=== PATIENT | male | born 1950 | race Caucasian/White ===

== ENCOUNTER 2022-04-19 23:34 | Emergency (ER) | payer MEDICARE, OTHER, SELFPAY ==
[2022-04-19 23:37] VITALS: BP 129/127; PULSE 68; RESP 15; TEMP 37.2; O2SAT 95; BMI 31.4
--- NOTE | 2022-04-19 23:59 | EKG12_ITS ---
Test Reason : CP Blood Pressure : / mmHG Vent. Rate : 072 BPM Atrial Rate : 072 BPM P-R Int : 136 ms QRS Dur : 102 ms QT Int : 388 ms P-R-T Axes : 059 -10 059 degrees QTc Int : 424 ms Normal sinus rhythm Normal ECG Confirmed by ROLA PARTIDA, TERENCE ([id number]), assignment editor MARIGE JAMESON ([id number]) on 04/21/2022 9:09:05 AM Referred By: PL Confirmed By:TERENCE CANELA MD
--- NOTE | 2022-04-20 00:01 | RAD_ITS ---
STUDY: X-RAY CHEST REASON FOR EXAM: Male, 71 years old. chest pain TECHNIQUE: 1 view COMPARISON: None. FINDINGS: Cardiomediastinal silhouette is unremarkable. Costophrenic angles are sharp. Lungs are clear. The trachea is midline. There is no pneumothorax. Multilevel thoracic spondylosis noted. RAD/Chest 1 View (Portable) IMPRESSION: No acute cardiopulmonary process. Electronically Signed: Fredrick Urena MD at 0:57 EDT ,
--- NOTE | 2022-04-20 00:10 | EDS_ITS ---
HPI History of Present Illness Chief Complaint: Chest Pain Informant: patient Narrative Narrative: Patient presents with what is really epigastric pain. He describes it as burning but he might have some component of being dull. It does not radiate. It does not go through to the back. He does not have shortness of breath nausea vomiting diaphoresis. It started after eating some spaghetti and ice cream. Weight loss he does have a little bit of sour taste in his mouth now but he did not have that initially. No diarrhea or constipation. No lightheadedness or presyncope. No history of GERD. He denies history of heart disease. His mom had a heart attack but it was in her 60s. He is not a smoker. No high cholesterol or diabetes. He does have high blood pressure. No travel surgery immobilization personal family history of DVT or PE. [facility] Medical History HTN (hypertension) Hypothyroid Parkinson disease Home Medications amlodipine 10 mg tablet 10 tab PO DAILY 04/19/22 [History Last Taken Unknown] aspirin 81 mg tablet,delayed release 81 tab PO DAILY 04/19/22 [History Last Taken Unknown] atenolol 25 mg tablet 25 tab PO DAILY 04/19/22 [History Last Taken Unknown] carbidopa 25 mg-levodopa 100 mg tablet 1 tab PO TID 04/19/22 [History Last Taken Unknown] levothyroxine 50 mcg tablet 50 mcg PO DAILY 04/19/22 [History Last Taken Unknown] triamterene 75 mg-hydrochlorothiazide 50 mg tablet 1 tab PO DAILY 04/19/22 [History Last Taken Unknown] esomeprazole magnesium 40 mg capsule,delayed release (Nexium) 40 mg PO DAILY #30 caps 04/20/22 [Rx Last Taken Unknown] Allergy/AdvReac Type Severity Reaction Status Date / Time No Known Allergies Allergy Verified 04/19/22 23:40 Social History Smoking Status: Never smoker ROS ROS ED Constitutional Constitutional ED: Denies fever(s) or sweats ENT ENT ED: Denies rhinorrhea or sore throat Cardiovascular Cardiovascular: Denies chest pain, palpitations or racing heartbeat Respiratory/Chest Respiratory/Chest: Denies cough or dyspnea Gastrointestinal Gastrointestinal: Reports abdominal pain; Denies constipation, diarrhea, melena, nausea or vomiting Genitourinary Genitourinary ED: Denies dysuria or hematuria Musculoskeletal Musculoskeletal: Denies back pain or neck pain Integumentary Denies rash Neurologic Neurologic: Denies headache(s), paresthesias or weakness Psychiatric Psychiatric: Denies anxiety Endocrine Endocrinology: Denies polydipsia or polyuria Hematologic/Lymphatic Hematologic/Lymphatic: Denies easy bleeding or easy bruising Allergic/Immunologic Allergic/Immunologic ED: Denies urticaria EXAM Physical Exam Const Vital Signs: 04/19/22 23:37 04/19/22 23:47 04/20/22 00:23 Temperature 98.9 F Temperature Source Temporal Pulse Rate 68 Respiratory Rate 15 Respiratory Effort Normal Non-Labored Blood Pressure 129/127 H Blood Pressure Mean 127 Pulse Ox 95 Oxygen Delivery Method Room Air Room Air 04/20/22 00:35 04/20/22 01:00 04/20/22 02:00 Temperature Temperature Source Pulse Rate 71 75 72 Respiratory Rate 18 20 H 17 Respiratory Effort Blood Pressure 148/91 H 160/87 H Blood Pressure Mean 110 111 Pulse Ox 97 98 97 Oxygen Delivery Method Room Air Room Air Room Air Positive well nourished and well developed General Appearance ED: well developed and NAD; Negative for pallor HEENT Reports moist mucous membranes Eyes General Eye ED: Negative for pale conjunctiva or scleral icterus Neck no JVD Chest Wall inspection of chest normal and palpation of chest normal Resp normal respiratory effort and clear to auscultation bilaterally Auscultation: Negative for rales, rhonchi, wheezes or diminished lung sounds Cardio regular rate, regular rhythm and no murmurs GI GI Narrative: Minimal epigastric tenderness. There is no objective tenderness but when I press in the epigastric area patient states that is where he hurts. There is no rebound or guarding. I feel no mass. There is no right upper quadrant tenderness. Negative Vickers sign. No symptoms at all below the umbilicus. Back/Spine no CVA tenderness Extremity normal to inspection General Extremety ED: Negative for edema or tenderness General Extremity: Negative for edema Neuro oriented x3 Neuro Narrative: Patient does have typical pill-rolling tremor consistent with his Parkinson's Psych mental status grossly normal Skin no rashes or lesions noted and no wounds General Skin Exam: Negative for jaundice or pallor MDM MDM MDM Narrative Medical decision making narrative: Patient's labs show mild elevation of white count of 15 4. Rest of CBC is normal. Electrolytes are overall unremarkable. Liver function test is normal. Glucose is minimally up at 132. Lipase is negative. Troponin is normal and repeat is less. X-ray shows no acute process. Patient has been rechecked twice. All of his discomfort is in the epigastric area. He describes it as burning. It still not going through to his back. His abdomen is benign. I do not think he needs a CAT scan of the abdomen. He admits he has been doing a lot more lifting and bending recently. He has also been eating increased tomato sauce and lasagna. I think this is triggered some reflux and increase acid. We will get him on meds for this. He will follow-up with his physician. It was explained that if he has change in location or character of pain, worsening pain, fevers, bloating, vomiting dyspnea or any other symptoms he should return Lab Data Attestation: I reviewed the patient's lab results. Labs: Laboratory Results - last 24 hr 04/20/22 04/20/22 04/20/22 00:20 00:20 02:20 WBC 15.4 H RBC 5.63 Hgb 15.8 Hct 47.6 MCV 84.5 MCH 28.1 MCHC 33.2 RDW Std Deviation 39.8 RDW Coeff of Navneet 13.0 Plt Count 208 MPV 10.4 Immature Gran % (Auto) 0.400 Neut % (Auto) 80.8 H Lymph % (Auto) 10.8 L Troup % (Auto) 6.7 Eos % (Auto) 0.7 Baso % (Auto) 0.6 Absolute Neuts (auto) 12.4 H Absolute Lymphs (auto) 1.66 Nucleated RBC % 0 Sodium 140 Potassium 4.1 Chloride 103 Carbon Dioxide 32.0 Anion Gap 5 BUN 23 H Creatinine 1.22 Estim Creat Clear Calc 57.44 Est GFR (MDRD) Af Amer 75 Est GFR (MDRD) Non-Af 62 BUN/Creatinine Ratio 18.9 Glucose 132 H Calcium 9.5 Total Bilirubin 0.50 AST 20 ALT 9 L Alkaline Phosphatase 75 Troponin I High Sens 8 6 Total Protein 8.1 Albumin 4.1 Globulin 4.0 Albumin/Globulin Ratio 1.0 Lipase 111 Radiography Diagnostic Testing: Clinical Impression(s) from Imaging Studies Chest X-Ray 04/20/22 00:01 IMPRESSION: No acute cardiopulmonary process. Electronically Signed: Fredrick Urena MD at 0:57 EDT , EKG Initial EKG: Comments: EKG done for epigastric pain read by me shows a normal sinus rhythm with overall rate of 72. No ventricular ectopy. No acute ST elevation or depression. AK interval, QRS duration and QTC normal. EKG was done during discomfort. Patient's discomfort has been continual for approximately 6 hours now. Discharge Plan Triage Chief Complaint: Chest Pain ED Provider: Trenton Jimenes Dx/Rx/DC Orders Clinical Impression: Acute epigastric pain, GERD (gastroesophageal reflux disease) Instructions: ED GERD (Adult) Prescriptions: New esomeprazole magnesium [Nexium] 40 mg capsule,delayed release(DR/EC) 40 mg PO DAILY Qty: 30 0RF No Action atenolol 25 mg tablet 25 tab PO DAILY Label Comments: TAKE 1 TABLET BY MOUTH EVERY DAY aspirin 81 mg tablet,delayed release (DR/EC) 81 tab PO DAILY Label Comments: TAKE 1 TABLET BY MOUTH EVERY DAY amlodipine 10 mg tablet 10 tab PO DAILY Label Comments: TAKE 1 TABLET BY MOUTH EVERY DAY levothyroxine 50 mcg tablet 50 mcg PO DAILY Label Comments: TAKE 1 TABLET BY MOUTH ONCE DAILY. TAKE ON EMPTY STOMACH. FOR THYROID. triamterene-hydrochlorothiazid 75-50 mg tablet 1 tab PO DAILY Label Comments: TAKE 1 TABLET BY MOUTH EVERY DAY carbidopa-levodopa 25-100 mg tablet 1 tab PO TID Label Comments: TAKE 1 TABLET BY MOUTH THREE TIMES A DAY Primary Care Provider: Celso Julien Referrals: Celso Julien MD [Primary Care Provider] - 1-2 Days if not improving Disposition Disposition: Home, Self Care
[2022-04-20] MEDS: Mag Hydrox/Al Hydrox/Simeth 30 ML UDC PO (00:22)
[2022-04-20] MEDS: Aspirin 81 MG TAB.CHEW 324 MG PO (00:22)
[2022-04-20 00:35] VITALS: PULSE 71; RESP 18; O2SAT 97
[2022-04-20 00:44] LABS: AST(SGOT) 20 U/L (15-37); Alanine Aminotransfer ALT/SGPT 9 U/L (16-61); Albumin, Serum 4.1 g/dL (3.2-5.0); Alkaline Phosphatase 75 U/L (45-117); Anion Gap 5 (5-15); BUN 23 mg/dL (7-18); BUN/Creat Ratio 18.9 RATIO (10-20); Calcium,Total 9.5 mg/dL (8.5-10.1); Chloride 103 mmol/L (98-107); Creatinine, Serum 1.22 mg/dL (0.70-1.30); EST Glomerular Filtration Rate 62 mL/min (>60); Est Glom Filt Rate - Afr Amer 75 mL/min (>60); Estimated Creatinine Clearance 57.44 ml/min; Glucose 132 mg/dL (74-106); Lipase 111 U/L (73-393); Potassium 4.1 mmol/L (3.5-5.1); Protein, Total 8.1 g/dL (6.4-8.2); Sodium Level 140 mmol/L (136-145); Troponin-I HS (w/2H Reflex) 8 pg/mL (3.0-78.0)
[2022-04-20 01:00] VITALS: BP 148/91; PULSE 75; RESP 20; O2SAT 98
[2022-04-20 01:06] LABS: Absolute Lymphocyte Count 1.66 X10^3/uL (0.83-4.51); Absolute Neutrophil Count 12.4 X10^3/uL (2.0-7.7); Basophil# 0.09 X10^3/uL; Basophil% 0.6 % (0-1); Eosinophils% 0.7 % (0-5); Hematocrit 47.6 % (40-54); Hemoglobin 15.8 g/dL (13.0-16.5); Lymphocyte # 1.66 X10^3/ul (0.83-4.51); Lymphocyte % 10.8 % (19-41); Mean Corp Hgb Conc 33.2 g/dL (32-36); Mean Corpuscular Hgb 28.1 pg (27.0-32.0); Mean Corpuscular Volume 84.5 fL (80-94); Mean Platelet Vol. 10.4 fl (6.2-12.0); Monocyte# 1.03 X10^3/uL; Monocyte% 6.7 % (0-10); NRBC Flagged by Analyzer 0 % (0-5); Neutrophil # 12.42 X10^3/uL (2.7-7.7); Neutrophil % 80.8 % (47-70); Platelet Count 208 K/mm3 (150-450); RBC Distribution Width SD 39.8 fl (35.1-43.9); Red Blood Count 5.63 M/mm3 (4.6-6.2); White Blood Count 15.4 K/mm3 (4.4-11.0)
[2022-04-20 02:00] VITALS: BP 160/87; PULSE 72; RESP 17; O2SAT 97
[2022-04-20 02:22] LABS: Reflex Troponin-HS? (from REC) Y
[2022-04-20 02:52] LABS: Troponin-I HS 6 pg/mL (3.0-78.0)
[2022-04-20 03:22] VITALS: BP 167/83; PULSE 84; RESP 15; O2SAT 96
[2022-04-20] MEDS: Pantoprazole Sodium 40 MG Tablet PO (03:25)
[2022-04-20] MEDS: Dicyclomine 10 MG Capsule 20 MG PO (03:25)
[2022-04-20 04:58] VITALS: BP 168/89; PULSE 80; RESP 20; O2SAT 97
== END 2022-04-20 04:59 | disposition home or self-care (01) ==
PROVIDERS: Emergency Provider Emergency Medicine; PCP Family Medicine; Visit Provider Emergency Medicine
DX: K21.9 Gastro-esophageal reflux disease without esophagitis (principal); G20 Parkinson's disease; R10.13 Epigastric pain; I10 Essential (primary) hypertension; E03.9 Hypothyroidism, unspecified; Z79.899 Other long term (current) drug therapy; Z79.890 Hormone replacement therapy
CPT/HCPCS: 71045; 80053; 83690; 84484; 85025; 93005; 99285; A4216

== ENCOUNTER 2022-09-25 07:15 | Observation (INO) | payer MEDICARE, OTHER, SELFPAY ==
--- NOTE | 2022-09-24 | IMM_PTH ---
PATIENT: TRACI COOPER Jr. LOC: MS3 U#:[id number] AGE/SX: 72/M ROOM: CT314 RE09/25/[address]: Dr. Shelbi Ruth MD : 1950 BED: 1 DIS: 09/26/2022 SPEC #: [id number] RECD: 09/28/22 10:26 STATUS: ALBERTO REQ #: [id number] ANMOL: 09/24/22 00:[address]: Shelbi Ruth DEPT: IMMUNOHISTOCHEMISTRY RECD BY: Radha Segal ENTERED: 09/28/22 10:27 SP TYPE: IMMUNO OTHR DR: Dr. Celso Julien MD Tissues: Gallbladder, NOS Procedures: Synapto (add) CD56 (add) CHROMO (add) CK7 (add) CK8 (add) KI-67 (add) Pankeratin (initial) [facility] [address] [address] SPECIMEN INFORMATION: Tissue Source: Gallbladder Clinical Info: Acute cholecystitis Specimen Number: [id number] CPT code: 68880, 53286 x6 METHODOLOGY: Deparaffinized sections of prefer/formalin-fixed tissue or PAP/DQ stained slides are incubated with monoclonal/polyclonal antibodies/oligonucleotide probes. Localization is made via biotin free immunoperoxidase method. Appropriate controls are performed and reacted as expected. Results on target cell population are indicated in the following table: RESULTS: ANTIBODY / CLONE RESULT AE1-3 (AE1/AE3/PCK26) positive CK7 (OV-TL12/30) positive CK8 (85jppgB22) positive CD56 (123C3.D5) negative Chromo (LK2H10) negative Synapto (polyclonal) negative Ki-67 (30-9) negative These tests were developed and their performance characteristics determined by [facility]. They may not have been cleared or approved by the U.S. Food and Drug Administration. The FDA has determined that such clearance or approval is not necessary. The above immunohistochemical/dualISH markers are ordered and reviewed by the Pathologist. INTERPRETATION: Gallbladder, cholecystectomy: Benign submucosal gland, negative for neuroendocrine markers. SJ:evangelista 09/28/2022 Case has been reviewed in consultation with Dr. Montero who concurs with the above diagnosis. IDC:[id number]
--- NOTE | 2022-09-24 | GALL_PTH ---
PATIENT: TRACI COOPER Jr. LOC: MS3 U#:[id number] AGE/SX: 72/M ROOM: SD314 RE09/25/[address]: Dr. Shelbi Ruth MD : 1950 BED: 1 DIS: 09/26/2022 SPEC #: [id number] RECD: 09/26/22 08:29 STATUS: ALBERTO DANIEL #: [id number] ANMOL: 09/24/22 00:[address]: Shelbi Ruth DEPT: SURGICAL PATHOLOGY RECD BY: Claudio Johnson ENTERED: 09/26/22 10:33 SP TYPE: SWETHA CADENA DR: Dr. Celso Julien MD Tissues: Gallbladder, NOS Procedures: Surgery Specimen Level III HEADER OPERATION: Laparoscopic cholecystectomy with IOC PRE-OP DIAGNOSIS: Acute cholecystitis TISSUE SUBMITTED: Gallbladder MICROSCOPIC DIAGNOSIS Gallbladder, cholecystectomy: Acute and chronic, ulcerated and hemorrhagic cholecystitis and cholelithiasis. A pericystic lymph node with reactive changes. See comment. BARBARA:evangelista 09/28/2022 COMMENT A few benign submucosal glands are noted, immunohistochemistry ([id number]) is negative for neuroendocrine markers. This case has been reviewed in consultation with Dr. Montero who concurs with the above diagnosis. MICROSCOPIC DESCRIPTION Slides are reviewed. GROSS DESCRIPTION Received is one container labeled with the patient's name and designated gallbladder. The specimen consists of a gallbladder measuring 10 cm in length and up to 4.5 cm in diameter. The gallbladder is previously, partially opened. The external surface is pink-campbell, smooth and glistening for the most part. Focally it is granular, hemorrhagic and contains cautery artifact. The gallbladder contains a small amount of hemorrhagic fluid and one brownish-black stone impacted at the cystic duct measuring 1.2 cm in greatest dimension. The mucosa is congested and hemorrhagic. The gallbladder wall measures up to 0.2 cm in thickness. Company [employer] sections from the gallbladder and the cystic duct are submitted in one cassette. / BARBARA:evangelista 09/26/2022 TC:2 CPT: 23687
[2022-09-25] VITALS (15 sets, daily range): BP systolic 122–156; BP diastolic 71–95; PULSE 63–84; RESP 16–18; TEMP 36.1–37.2; O2SAT 94–97; BMI 29.0
--- NOTE | 2022-09-25 07:29 | CT_ITS ---
STUDY: CT ABDOMEN AND PELVIS WITH CONTRAST REASON FOR EXAM: Male, 72 years old. upper abd pain RADIATION DOSAGE (If Supplied By Facility): CTDIvol = ( 16.99 ) mGy, DLP = ( 1236.42 ) mGycm TECHNIQUE: Transaxial images were obtained from the dome of the diaphragm to the symphysis pubis without oral contrast. IV 100mL Isovue-370 was administered. Sagittal and coronal images were reconstructed. Individualized dose optimization techniques were used for this CT. COMPARISON: None. FINDINGS: The visualized lung bases are unremarkable. The visualized portions of the heart are within normal limits. Normal liver. A 3 mm stone is present in the neck/cystic duct junction region of the gallbladder with associated circumferential diffuse thickening of the gallbladder wall and mild pericholecystic inflammation, consistent with acute cholecystitis. Normal spleen. Normal pancreas. Normal bilateral adrenal glands. There is mild cortical atrophy of the right kidney, consistent with chronic medical renal disease. There is mild cortical atrophy of the left kidney, consistent with chronic medical renal disease. A 3 mm nonobstructing calyceal stone is present in the upper pole of the right kidney. No additional radiopaque stones are seen in either kidney. No hydronephrosis or hydroureter is present. Normal visualized stomach. Normal small intestine. Normal colon. The appendix is visualized and appears normal. A moderate amount retained stool is present throughout the colon. There is diffuse atherosclerotic calcification of the abdominal aorta, without a demonstrated aneurysm. Normal inferior vena cava. Normal retroperitoneum. Several moderate to large size calcified stones are present in the posterior aspect of the bladder measuring 1.42 cm and 1.10 cm. Multiple additional tiny stones are also present in the dependent and posterior aspect of the bladder. There is mild to moderate thickening/trabeculation of the posterior aspect of the bladder wall where the stones are present. A small area of mucosal thickening/trabeculation on the right side of the bladder wall is also present. Normal abdominal wall. Normal osseous structures. CT/Abdomen/Pelvis W IV Cont ONLY IMPRESSION: Acute cholecystitis 1. A 3 mm stone is present in the neck/cystic duct junction region of the gallbladder with associated circumferential diffuse thickening of the gallbladder wall and mild pericholecystic inflammation, consistent with acute cholecystitis. 2. Multiple bladder stones with mild to moderate wall thickening and trabeculation 3. 3 mm nonobstructing right kidney stone Electronically Signed: Jean Gonzalez MD at 8:41 EST ,
--- NOTE | 2022-09-25 07:31 | EDS_ITS ---
HPI HPI - GI History of Present Illness Chief Complaint: Abd Pain Detail of Chief Complaint: Epigastric abdominal pain that awoke him from sleep at 2 AM today. Abdominal Pain/Flank Pain Onset: Today and Hours Context: Sudden Onset Timing: Continuous Quality: Aching Location: Epigastric Current Severity: Mild Maximum Severity: Mild Worsened by: Nothing Relieved by: Nothing Nausea/Vomiting/Emesis GI Symptom: Positive for Nausea Onset: Today Severity: Mild Diarrhea/Melena/Hematochezia GI Symptom: Negative for Diarrhea, Melena or Hematochezia Associated Symptoms Associated Symptoms: Negative for Dysuria, Frequency, Hematuria or Urgency Narrative Narrative: 72-year-old male history of Parkinson's disease, hypertension and hypothyroidism. Lives alone at home. States that he has had episodes in the past of epigastric abdominal pain. Was seen here 4 months ago so did not have a specific diagnosis. Patient denies any prior abdominal surgeries his entire life. States intermittently has some constipation but did have a bowel movement yesterday. Denies any melena. No fever or weight loss. No trauma. No dysuria. Prior similar symptoms: Yes Recent Illness/Hospitalization: No PFSH PFSH Medical History HTN (hypertension) Hypothyroid Parkinson disease Home Medications amlodipine 10 mg tablet 10 tab PO DAILY 04/19/22 [History Last Taken Unknown] aspirin 81 mg tablet,delayed release 81 tab PO DAILY 04/19/22 [History Last Taken Unknown] atenolol 25 mg tablet 25 tab PO DAILY 04/19/22 [History Last Taken Unknown] carbidopa 25 mg-levodopa 100 mg tablet 1 tab PO TID 04/19/22 [History Last Taken Unknown] levothyroxine 50 mcg tablet 50 mcg PO DAILY 04/19/22 [History Last Taken Unknown] triamterene 75 mg-hydrochlorothiazide 50 mg tablet 1 tab PO DAILY 04/19/22 [History Last Taken Unknown] esomeprazole magnesium 40 mg capsule,delayed release (Nexium) 40 mg PO DAILY #30 caps 04/20/22 [Rx Last Taken Unknown] Allergy/AdvReac Type Severity Reaction Status Date / Time No Known Allergies Allergy Verified 04/19/22 23:40 Surgical History no surgical history no surgical history Social History Smoking Status: Never smoker ROS ROS ED ROS Narrative Abdominal pain. Intermittent nausea. Review of Systems ROS Unobtainable: Denies due to encephalopathy Constitutional Constitutional ED: Denies chills or fever(s) ENT ENT ED: Denies ear pain Cardiovascular Cardiovascular: Denies chest pain Respiratory/Chest Respiratory/Chest: Denies cough or dyspnea Gastrointestinal Gastrointestinal: Reports abdominal pain and nausea; Denies constipation, diarrhea, melena or vomiting Genitourinary Genitourinary ED: Denies dysuria or hematuria Musculoskeletal Musculoskeletal: Denies arthralgias Integumentary Denies abscess or Abrasions Neurologic Neurologic: Denies headache(s) Psychiatric Psychiatric: Denies anxiety Endocrine Endocrinology: Denies polydipsia Hematologic/Lymphatic Hematologic/Lymphatic: Denies easy bleeding Allergic/Immunologic Allergic/Immunologic ED: Denies mouth swelling, tongue swelling or urticaria EXAM Physical Exam Narrative Exam Narrative: 72-year-old male no acute distress. Vital signs stable afebrile. H EENT exam unremarkable. Neck nontender no JVD. Lungs clear to auscultation. Heart regular rhythm rate about 60 no murmur. Abdomen soft nondistended normal bowel sounds no peritoneal signs. Right upper and lower quadrants are completely nontender. Mild epigastric tenderness. No rebound, guarding or rigidity. No pulsatile mass. No signs of obstruction. Moving all 4 extremities. Nontender no edema. Back nontender. Neurologically is awake and alert. He does have a parkinsonian tremor. Const Vital Signs: 09/25/22 07:15 09/25/22 09:21 Temperature 96.9 F L Temperature Source Temporal Pulse Rate 63 67 Respiratory Rate 17 17 Blood Pressure 135/89 H 156/92 H Blood Pressure Mean 104 113 Pulse Ox 96 96 Oxygen Delivery Method Room Air Room Air Positive well nourished and well developed; Negative for cachectic, contractures or unkempt General Appearance ED: well developed and NAD; Negative for unkempt, cachectic, contractures or pallor Nutritional Appearance: Negative for cachectic HEENT Reports moist mucous membranes normocephalic and atraumatic; Negative for trauma or tenderness Eyes PERRL and EOMs intact bilaterally General Eye ED: Negative for pale conjunctiva or scleral icterus Neck no lymphadenopathy, supple and no JVD General: Negative for tenderness Carotids: Negative for other Lymph Lymphatic: Negative for other Resp normal respiratory effort and clear to auscultation bilaterally Effort and Inspection: Negative for respiratory distress Auscultation: Negative for rales, rhonchi or wheezes Cardio regular rate, regular rhythm, S1 normal heart sound, S2 normal heart sound and no murmurs Rate: Negative for bradycardia or tachycardic Rhythm: Negative for abnormal rhythm GI non-distended and no masses; Negative for non-tender GI Narrative: Mild epigastric tenderness. No Vickers sign. No McBurney's point tenderness. Inspection: Negative for abdominal distention Auscultation: normoactive bowel sounds Palpation: soft and tender; Negative for guarding, rigid, hepatomegaly, splenomegaly, hernia, mass, pulsatile mass or rebound tenderness present Back/Spine no CVA tenderness General Back: Negative for CVA tenderness Cervical Spine: Negative for cervical spine tenderness Thoracic Spine / Upper Back: Negative for thoracic spinal tenderness Lumbar Spine / Lower Back: Negative for lumbar spinal tenderness Coccyx: Negative for other Extremity full ROM General Extremety ED: Negative for edema or tenderness General Extremity: Negative for edema Neuro CN's II-XII intact bilaterally Sensorium / Orientation: alert, oriented to person, oriented to place and oriented to time; Negative for orientation impaired, confused, lethargic or stuporous Motor Exam: strength 5/5 throughout Psych mental status grossly normal and thought process normal Appearance: Negative for unkempt Attitude: No agitated Mood & Affect: Negative for depressed, anxious or tearful Skin no wounds General Skin Exam: Negative for jaundice or pallor Lesions: no lesions Rashes: no rashes Trauma: Negative for abrasion Nails: Negative for discolored MDM MDM MDM Narrative Medical decision making narrative: 72-year-old male with no prior abdominal surgeries with epigastric abdominal pain. This may or may not be reflux. Patient himself thinks it may be his gallbladder. Screening labs are being obtained. A CAT scan of his abdomen pelvis. He will be given Zofran for nausea and Protonix. He did not want a GI cocktail. Patient be treated with IV morphine. He already received Zofran. Discussed with Dr. Shelbi Ruth on-call for general surgery. She is coming to evaluate the patient. He will be started on IV Zosyn. Patient is comfortable with the need to do surgery today. Currently he is resting comfortably. He was given a dose of morphine. Lab Data Attestation: I reviewed the patient's lab results. Lab results narrative: CBC shows elevated white count 13.4. H&H is 16 and 48. Platelets 213. Electrolytes gap of 7 BUN 25 creatinine 1.1. Glucose 134. Liver enzymes unremarkable. Lipase normal 101. CAT scan consistent with acute cholecystitis with a 3 mm stone in the neck of the gallbladder. Pericholecystic inflammation and thickening of the gallbladder wall. Labs: Laboratory Results - last 24 hr 09/25/22 09/25/22 07:25 07:25 WBC 13.4 H RBC 5.84 Hgb 16.2 Hct 48.1 MCV 82.4 MCH 27.7 MCHC 33.7 RDW Std Deviation 38.2 RDW Coeff of Navneet 12.9 Plt Count 213 MPV 10.1 Immature Gran % (Auto) 0.400 Neut % (Auto) 78.1 H Lymph % (Auto) 13.3 L [place] % (Auto) 6.9 Eos % (Auto) 0.6 Baso % (Auto) 0.7 Absolute Neuts (auto) 10.5 H Absolute Lymphs (auto) 1.78 Nucleated RBC % 0 Sodium 137 Potassium 3.6 Chloride 101 Carbon Dioxide 29.0 Anion Gap 7 BUN 25 H Creatinine 1.15 Estim Creat Clear Calc 60.02 Est GFR (MDRD) Af Amer 80 Est GFR (MDRD) Non-Af 66 BUN/Creatinine Ratio 21.7 H Glucose 134 H Calcium 9.2 Total Bilirubin 0.70 AST 16 ALT 10 L Alkaline Phosphatase 67 Total Protein 7.7 Albumin 4.1 Globulin 3.6 Albumin/Globulin Ratio 1.1 Lipase 101 Radiography Diagnostic Testing: Clinical Impression(s) from Imaging Studies Abdomen/Pelvis CT 09/25/22 07:29 IMPRESSION: Acute cholecystitis 1. A 3 mm stone is present in the neck/cystic duct junction region of the gallbladder with associated circumferential diffuse thickening of the gallbladder wall and mild pericholecystic inflammation, consistent with acute cholecystitis. 2. Multiple bladder stones with mild to moderate wall thickening and trabeculation 3. 3 mm nonobstructing right kidney stone Electronically Signed: Jean Gonzalez MD at 8:41 EST Reading Location ID and State: [facility] / [place] , Service support , Rhythm Strip Rhythm Strip: Sinus Rhythm Rate: 67 Ectopy: None EKG Initial EKG: Attestation: I personally reviewed and interpreted this EKG as follows: Interpretation: Sinus Rhythm and No Acute Injury Pattern Comments: Normal sinus rhythm rate of 67 no acute signs of ID or ischemia. Preop EKG for suspected acute cholecystectomy. Discharge Plan Dx/Rx/DC Orders Clinical Impression: Abdominal pain, History of Parkinson's disease, Acute cholecystitis Disposition Disposition: Acute Care [facility]
[2022-09-25] MEDS: Pantoprazole Sodium 40 MG Tablet PO (07:37)
[2022-09-25] MEDS: Ondansetron 4 MG/2 ML Vial IV (07:37)
[2022-09-25 07:38] LABS: Absolute Lymphocyte Count 1.78 X10^3/uL (0.83-4.51); Absolute Neutrophil Count 10.5 X10^3/uL (2.0-7.7); Basophil# 0.09 X10^3/uL; Basophil% 0.7 % (0-1); Eosinophil# 0.08 X10^3/uL; Eosinophils% 0.6 % (0-5); Hematocrit 48.1 % (40-54); Hemoglobin 16.2 g/dL (13.0-16.5); Lymphocyte # 1.78 X10^3/ul (0.83-4.51); Lymphocyte % 13.3 % (19-41); Mean Corp Hgb Conc 33.7 g/dL (32-36); Mean Corpuscular Hgb 27.7 pg (27.0-32.0); Mean Corpuscular Volume 82.4 fL (80-94); Mean Platelet Vol. 10.1 fl (6.2-12.0); Monocyte# 0.93 X10^3/uL; Monocyte% 6.9 % (0-10); NRBC Flagged by Analyzer 0 % (0-5); Neutrophil # 10.45 X10^3/uL (2.7-7.7); Neutrophil % 78.1 % (47-70); Platelet Count 213 K/mm3 (150-450); RBC Distribution Width CV 12.9 % (11.6-14.6); RBC Distribution Width SD 38.2 fl (35.1-43.9); Red Blood Count 5.84 M/mm3 (4.6-6.2); White Blood Count 13.4 K/mm3 (4.4-11.0)
[2022-09-25 07:54] LABS: ALB/GLOB Ratio 1.1 RATIO (0.9-2.4); AST(SGOT) 16 U/L (15-37); Alanine Aminotransfer ALT/SGPT 10 U/L (16-61); Albumin, Serum 4.1 g/dL (3.2-5.0); Alkaline Phosphatase 67 U/L (45-117); Anion Gap 7 (5-15); BUN 25 mg/dL (7-18); BUN/Creat Ratio 21.7 RATIO (10-20); Calcium,Total 9.2 mg/dL (8.5-10.1); Chloride 101 mmol/L (98-107); Creatinine, Serum 1.15 mg/dL (0.70-1.30); EST Glomerular Filtration Rate 66 mL/min (>60); Est Glom Filt Rate - Afr Amer 80 mL/min (>60); Estimated Creatinine Clearance 60.02 ml/min; Globulin 3.6 g/dL (2.2-4.2); Glucose 134 mg/dL (74-106); Lipase 101 U/L (73-393); Potassium 3.6 mmol/L (3.5-5.1); Protein, Total 7.7 g/dL (6.4-8.2); Sodium Level 137 mmol/L (136-145)
[2022-09-25] MEDS: morphine 8 MG/ML Syringe 6 MG IV (08:57)
--- NOTE | 2022-09-25 09:20 | EKG12_ITS ---
Test Reason : ABD PAIN Blood Pressure : / mmHG Vent. Rate : 067 BPM Atrial Rate : 067 BPM P-R Int : 132 ms QRS Dur : 096 ms QT Int : 392 ms P-R-T Axes : 076 -11 037 degrees QTc Int : 414 ms Normal sinus rhythm Nonspecific ST abnormality Abnormal ECG Confirmed by GAEL PARTIDA, ENMANUEL ([id number]), assignment editor MARGIE JAMESON ([id number]) on 09/27/2022 11:25:27 AM Referred By: Confirmed By:ENMANUEL MAYO MD
--- NOTE | 2022-09-25 09:26 | NURSING ---
MED SURG OBS BROWNE ACUTE CHOLECYSTITIS, HX OF PARKINSONS, HX OF HYPERTENSION
--- NOTE | 2022-09-25 10:30 | NURSING ---
DR BROWNE SENDING PATIENT TO OR
--- NOTE | 2022-09-25 10:35 | PCM.HP.STD ---
HPI - General General Date of Admission: 09/25/22 Date of Service: 09/25/22 Chief Complaint: abdominal pain HPI Narrative TRACI COOPER, is a 72 M who presents with abdominal pain and was brought in by ambulance to [facility] ED. He is found to have acute cholecystitis as evidenced by physical examination and CT scan. He states that he has noted cholelithiasis for years, but it did not bother him. He states that this present pain began about a day ago and has progressed in severity. He has some nausea. He denies icterus or jaundice. [facility] Medical History HTN (hypertension) Hypothyroid Parkinson disease Home Medications amlodipine 10 mg tablet 10 tab PO DAILY 04/19/22 [History Last Taken Unknown] aspirin 81 mg tablet,delayed release 81 tab PO DAILY 04/19/22 [History Last Taken Unknown] atenolol 25 mg tablet 25 tab PO DAILY 04/19/22 [History Last Taken Unknown] carbidopa 25 mg-levodopa 100 mg tablet 1 tab PO TID 04/19/22 [History Last Taken Unknown] levothyroxine 50 mcg tablet 50 mcg PO DAILY 04/19/22 [History Last Taken Unknown] triamterene 75 mg-hydrochlorothiazide 50 mg tablet 1 tab PO DAILY 04/19/22 [History Last Taken Unknown] esomeprazole magnesium 40 mg capsule,delayed release (Nexium) 40 mg PO DAILY #30 caps 04/20/22 [Rx Last Taken Unknown] Allergy/AdvReac Type Severity Reaction Status Date / Time No Known Allergies Allergy Verified 04/19/22 23:40 Surgical History no surgical history Social History Smoking Status: Never smoker ROS Constitutional Constitutional: Denies chills or fever(s) Eyes Eyes: Denies change in vision Cardiovascular Cardiovascular: Denies chest pain at rest Respiratory/Chest Respiratory/Chest: Denies dyspnea or productive cough Gastrointestinal Gastrointestinal: Reports abdominal pain Genitourinary Genitourinary: Denies difficulty urinating or hematuria Musculoskeletal Musculoskeletal: Denies abnormal gait Integumentary Integumentary: Denies jaundice Neurologic Neurologic: Reports other Details: patient with Parkinson's and has upper extremity tremor R>L ; Denies dizziness Vital Signs Vital Signs Vital Signs: 09/25/22 07:15 09/25/22 09:21 09/25/22 09:55 Temperature 96.9 F L 97.1 F L Temperature Source Temporal Temporal Pulse Rate 63 67 68 Respiratory Rate 17 17 17 Blood Pressure 135/89 H 156/92 H 156/92 H Blood Pressure Mean 104 113 113 Pulse Ox 96 96 96 Oxygen Delivery Method Room Air Room Air Room Air Weight Weight: 94.619 kg Body Mass Index (BMI) 29.0 Physical Exam Const oriented x3 Resp normal respiratory effort Cardio regular rate GI GI Narrative: abdomen is soft but tender in epigastrium and RUQ with positive Vickers's sign abdomen is protuberant Extremity no clubbing, cyanosis or edema Extremity Narrative: right upper extremity tremor Results Medical Records Data Attestation: I reviewed the patient's medical records Lab / Micro Data Attestation: I reviewed the patient's lab results. Result Diagrams: 09/25/22 07:25 09/25/22 07:25 Labs: Laboratory Results - last 24 hr 09/25/22 07:25: WBC 13.4 H, RBC 5.84, Hgb 16.2, Hct 48.1, MCV 82.4, MCH 27.7, MCHC 33.7, RDW Std Deviation 38.2, RDW Coeff of Navneet 12.9, Plt Count 213, MPV 10.1, Immature Gran % (Auto) 0.400, Neut % (Auto) 78.1 H, Lymph % (Auto) 13.3 L, [place] % (Auto) 6.9, Eos % (Auto) 0.6, Baso % (Auto) 0.7, Absolute Neuts (auto) 10.5 H, Absolute Lymphs (auto) 1.78, Nucleated RBC % 0 09/25/22 07:25: Sodium 137, Potassium 3.6, Chloride 101, Carbon Dioxide 29.0, Anion Gap 7, BUN 25 H, Creatinine 1.15, Estim Creat Clear Calc 60.02, Est GFR (MDRD) Af Amer 80, Est GFR (MDRD) Non-Af 66, BUN/Creatinine Ratio 21.7 H, Glucose 134 H, Calcium 9.2, Total Bilirubin 0.70, AST 16, ALT 10 L, Alkaline Phosphatase 67, Total Protein 7.7, Albumin 4.1, Globulin 3.6, Albumin/Globulin Ratio 1.1, Lipase 101 Rhythm Strip Rhythm Strip: Sinus Rhythm Rate: 67 Ectopy: None Radiology Impression Abdomen/Pelvis CT 09/25/22 07:29 IMPRESSION: Acute cholecystitis 1. A 3 mm stone is present in the neck/cystic duct junction region of the gallbladder with associated circumferential diffuse thickening of the gallbladder wall and mild pericholecystic inflammation, consistent with acute cholecystitis. 2. Multiple bladder stones with mild to moderate wall thickening and trabeculation 3. 3 mm nonobstructing right kidney stone Electronically Signed: Jean Gonzalez MD at 8:41 EST Reading Location ID and State: [facility] / [place] , Service support , Assessment & Plan Assessment/Plan (1) Acute cholecystitis: PLAN: see below PLAN: Plan I have discussed with patient, he presents with acute cholecystitis. I have offered laparoscopic cholecystectomy I have explained the procedure to the patient. I have counseled the patient as to the risks of the procedure, including but not limited to: infection, bleeding, injury to any blood vessels/nerves, scar tissue, injury to any intrabdominal organs, injury to kidney/ureters, injury to bowel/bladder, injury to the common bile duct/biliary tree, bile leakage, intraabdominal abscess/bleeding, hernias at incisional sites, wound infections, possible open procedure, complications of anesthesia, postoperative pneumonia/cardiac problems/blood clots etc. the patient understands. The patient wishes to proceed. I have answered all questions to the patient?s satisfaction and the patient has no further questions.
--- NOTE | 2022-09-25 10:50 | ED.RN ---
Report given to Janette from OR
[2022-09-25] MEDS: morphine 10 MG/ML Syringe 6 MG IV (10:54)
[2022-09-25] MEDS: 0.9% Normal Saline 1,000 ML 125 ML IV ×3 (11:30→22:07)
--- NOTE | 2022-09-25 12:51 | PCM.OPRPT ---
Report of Operation Date of Procedure: 09/25/22 Pre-Operative Diagnosis: acute cholecystitis Post-Operative Diagnosis: acute gangrenous gallbladder - cholecystitis, obstructed Surgery/Procedure Performed:: laparoscopic cholecystectomy Surgeon: Shelbi Ruth complaint investigations officer: Laureen Small Type of Anesthesia: General Anesthesiologist: Ant Singh Specimen's removed: gallbladder and contents Drains: 10 Fr TYLOR drain in RUQ abdomen Estimated Blood Loss (mL): 20 ml Fluids Replaced: 1400 ml RL Description of Procedure: After informed consent was given, the patient was brought to the Operating Room. Appropriate time out protocol was followed. The patient was placed in the supine position. The patient was then placed under general endotracheal anesthesia by the anesthesia provider. The abdomen was then prepped with a sterile surgical skin preparation and sterile surgical drapes were placed. An area superior to the umbilical dimple was grasped with penetrating clamps and the skin and subcutaneous tissues were infiltrated with 0.25% marcaine with epinephrine. A skin incision was then made with a 15 blade scalpel. The anterior abdominal wall was elevated and a Veress needle was carefully inserted into the intraabdominal cavity. It was checked to be in the proper position with a normal saline drop test. A CO2 pneumoperitoneum was then created. Once this was achieved, then the Veress needle was removed and an 11mm trocar was placed in its stead. A 10mm laparoscope was then inserted into the trocar and careful attention was directed to the intraabdominal contents. There was no evidence of injury to any intraabdominal organs from insertion of the Veress needle or the trocar. Under direct visualization, a 5mm subxiphoid trocar and two lateral 5mm right subcostal trocars were placed. The skin and subcutaneous tissues at these sites were infiltrated with 0.25% marcaine with epinephrine prior to placement of these trocars. Attention was then directed to the right upper quadrant of the abdomen. The gallbladder was grossly distended and edematous and the wall appeared gangrenous. The gallbladder was obstructed. Needle aspiration was done to decompress the gallbladder so that it could be grasped. Graspers were placed in the lateral trocars to grasp the distal aspect of the gallbladder and direct it cephalad and to grasp the gallbladder at Benitez?s pouch and direct it laterally. There were dense omental adhesions to the free surface of the gallbladder c/w cholecystitis. Blunt dissection was done to separate these adhesions from the gallbladder. Dissection then began on the proximal gallbladder continuing down to the area of the triangle of Calot to bluntly dissect out the cystic duct. The neck of the gallbladder was identified and blunt dissection continued to dissect out a segment of the cystic duct. A clip was then placed on the neck of the gallbladder. Two clips were placed proximally and the cystic duct was then transected. The cystic artery was visualized and bluntly isolated and then two clips were placed proximally and one clip distally and then it was transected between the proximal and distal clips. The gallbladder was then from the liver bed using electrocautery. This took some time due to the inflammatory nature of the gallbladder. Once from the liver bed, it was placed in an Endobag and brought out via the periumbilical port. It was then forwarded to pathology for analysis. The liver bed was carefully examined. There was no evidence of bile leakage or bleeding. There was inflammatory oozing and this was controlled with Surgicel application and Kendra. A catheter was placed in the RUQ of the abdomen inferior to the liver and near the gallbladder fossa. It was brought out via one of the lateral trocar sites and sutured to the abdominal wall skin using nylon suture. The cystic duct stump and cystic artery stump had their clips intact and there was no evidence of bile leakage or bleeding. The remainder of the abdomen was grossly normal. The CO2 was released and all trocars removed intact. The periumbilical fascia was approximated with a [id number] 0 vicryl suture. All skin incision were closed with 4-0 monocryl in a subdermal fashion. Cavilol and Steristrips were used to reinforce the skin closure. Sterile dressings were applied to all wounds. Sponge, needle and instrument count was verified and correct at time of skin closure. The patient was extubated and brought to the Recovery Room in stable condition. Complications none noted Admit VTE Documentation VTE Present on Admission: Yes VTE Mechan Device Prophylaxis: SCD's
[2022-09-25] MEDS: Bupivacaine 0.25%-Epi/Pf 1:200,000 10 ML (12:52)
[2022-09-25] MEDS: Carbidopa/Levodopa 25/100 Tablet PO (16:32)
[2022-09-25] MEDS: Famotidine 200 MG/20 ML MDV 20 MG in 0.9% Normal Saline (Pres. free 8 ML 300 MG IV (22:02)
[2022-09-25] MEDS: HYDROcodone Bitartrate/Apap 5/325 Tablet PO (22:11)
[2022-09-26 02:15] VITALS: BP 132/74; PULSE 89; RESP 16; TEMP 36.8; O2SAT 95
[2022-09-26 06:10] VITALS: BP 148/84; PULSE 64; RESP 18; TEMP 36.7; O2SAT 97
[2022-09-26 06:11] VITALS: BP 148/84; PULSE 64; RESP 18; TEMP 36.7; O2SAT 97
[2022-09-26] MEDS: Levothyroxine 50 MCG Tablet PO (06:44)
[2022-09-26] MEDS: Carbidopa/Levodopa 25/100 Tablet PO (06:44)
--- NOTE | 2022-09-26 07:22 | PN.SURG_ITS ---
Subjective Subjective patient has minimal abdominal tenderness, just at the incisional sites Objective Data Objective Data Vital Signs: Vital Signs Temp Pulse Resp BP Pulse Ox O2 Del Method 98.1 F 64 18 148/84 H 97 Room Air 09/26/22 06:11 09/26/22 06:11 09/26/22 06:11 09/26/22 06:11 09/26/22 06:11 09/26/22 06:11 Oxygen Delivery Method Room Air Weight: 94.619 kg Body Mass Index (BMI) 29.0 Intake & Output: Intake and Output for Last 24 Hours 09/24/22 09/25/22 09/26/22 23:59 23:59 23:59 Intake Total 3952.92 / 3952.92 1350 / 1350 Output Total 110 / 110 14 / 14 Balance 3842.92 / 3842.92 1336 / 1336 Lab / Micro Data Result Diagrams: 09/25/22 07:25 09/25/22 07:25 Labs: Laboratory Results - last 24 hr 09/25/22 07:25: WBC 13.4 H, RBC 5.84, Hgb 16.2, Hct 48.1, MCV 82.4, MCH 27.7, MCHC 33.7, RDW Std Deviation 38.2, RDW Coeff of Navneet 12.9, Plt Count 213, MPV 10.1, Immature Gran % (Auto) 0.400, Neut % (Auto) 78.1 H, Lymph % (Auto) 13.3 L, [place] % (Auto) 6.9, Eos % (Auto) 0.6, Baso % (Auto) 0.7, Absolute Neuts (auto) 10.5 H, Absolute Lymphs (auto) 1.78, Nucleated RBC % 0 09/25/22 07:25: Sodium 137, Potassium 3.6, Chloride 101, Carbon Dioxide 29.0, Anion Gap 7, BUN 25 H, Creatinine 1.15, Estim Creat Clear Calc 60.02, Est GFR (MDRD) Af Amer 80, Est GFR (MDRD) Non-Af 66, BUN/Creatinine Ratio 21.7 H, Glucose 134 H, Calcium 9.2, Total Bilirubin 0.70, AST 16, ALT 10 L, Alkaline Phosphatase 67, Total Protein 7.7, Albumin 4.1, Globulin 3.6, Albumin/Globulin Ratio 1.1, Lipase 101 Radiography Diagnostic Testing: Radiology Impression Abdomen/Pelvis CT 09/25/22 07:29 IMPRESSION: Acute cholecystitis 1. A 3 mm stone is present in the neck/cystic duct junction region of the gallbladder with associated circumferential diffuse thickening of the gallbladder wall and mild pericholecystic inflammation, consistent with acute cholecystitis. 2. Multiple bladder stones with mild to moderate wall thickening and trabeculation 3. 3 mm nonobstructing right kidney stone Electronically Signed: Jean Gonzalez MD at 8:41 EST Reading Location ID and State: [facility] / [place] , Service support , Rhythm Strip Rhythm Strip: Sinus Rhythm Rate: 67 Ectopy: None Physical Exam Const alert and oriented x3 General Appearance: cooperative Neck supple Resp normal respiratory effort Effort and Inspection: able to speak in complete sentences Cardio regular rate GI GI Narrative: abdomen is soft and benign dressing intact without seepage Assessment & Plan Assessment/Plan (1) Status post laparoscopic cholecystectomy: PLAN: Patient is POD#1 s/p laparoscopic cholecystectomy D/C to home on regular diet follow up with me in a few days for TYLOR drain removal PLAN: Plan status post laparoscopic cholecystectomy POD#1 d/c to home
--- NOTE | 2022-09-26 07:24 | DCINST_ITS ---
Discharge Instructions Follow Up Care Test Results: Test results from this visit will be discussed in further detail at your follow- up appointment, if applicable. Discharge Plan Admission Admit Date/Time: 09/25/22 09:37 Attending Provider: Shelbi Ruth Primary Care Provider: Celso Julien Instructions Additional Instructions / Restrictions: Recommended pain control regimen - May take 600 mg ibuprofen (Motrin) and then in 3-4 hours, may take 650 mg acetaminophen (Tylenol), then in 3-4 hours may take 600 mg ibuprofen, then in 3- 4 hours may take 650 mg acetaminophen and so on for 2-3 days May take narcotic pain medication for pain that is not controlled by above and at night for comfort through the night Leave dressings in place May shower, do not scrub in the areas of the dressings as they may unravel. Do not soak - no tub baths/swimming No lifting/pushing/pulling greater than 20 pounds for two weeks. Regular diet as tolerated, drink plenty of fluids. Avoid carbonated beverages for a few days as this will cause abdominal bloating and thus discomfort after our surgery. Please call my office for an appointment to see me in 1-2 weeks. Office number is If any questions, please call my office at and ask the welding machine operator resistance for the general surgery nurses desk Discharge Orders/Prescriptions Prescriptions: New hydrocodone-acetaminophen 5-325 mg tablet 1 tab PO Q8H 3 Days Qty: 9 0RF No Action atenolol 25 mg tablet 25 tab PO DAILY Label Comments: TAKE 1 TABLET BY MOUTH EVERY DAY aspirin 81 mg tablet,delayed release (DR/EC) 81 tab PO DAILY Label Comments: TAKE 1 TABLET BY MOUTH EVERY DAY amlodipine 10 mg tablet 10 tab PO DAILY Label Comments: TAKE 1 TABLET BY MOUTH EVERY DAY levothyroxine 50 mcg tablet 50 mcg PO DAILY Label Comments: TAKE 1 TABLET BY MOUTH ONCE DAILY. TAKE ON EMPTY STOMACH. FOR THYROID. triamterene-hydrochlorothiazid 75-50 mg tablet 1 tab PO DAILY Label Comments: TAKE 1 TABLET BY MOUTH EVERY DAY carbidopa-levodopa 25-100 mg tablet 1 tab PO TID Label Comments: TAKE 1 TABLET BY MOUTH THREE TIMES A DAY esomeprazole magnesium [Nexium] 40 mg capsule,delayed release(DR/EC) 40 mg PO DAILY Qty: 30 0RF Referrals / Follow Up: Celso Julien MD [Primary Care Provider] -
[2022-09-26 07:25] VITALS: BP 131/76; PULSE 67; RESP 16; TEMP 37.1; O2SAT 97
[2022-09-26] MEDS: Atenolol 25 MG Tablet PO (08:23)
[2022-09-26] MEDS: amLODIPine 10 MG Tablet PO (08:23)
[2022-09-26] MEDS: Famotidine 200 MG/20 ML MDV 20 MG in 0.9% Normal Saline (Pres. free 8 ML 300 MG IV (08:26)
--- NOTE | 2022-09-26 10:11 | CASEMGMT ---
JESSIKA MARTINEZ made aware pt needs transportation home. JESSIKA MARTINEZ in to pt room, pt sitting up in bed. Discussed the hospital van as an option, pt is agreeable to this. Pt states he is I in bathing and dressing at home and uses a cane when his gout flares up. Pt lives alone with 2 steps to enter and has a girlfriend who lives in [place] who can assist. Pt denies further homegoing needs. TC to [facility] transportation, pt can be taken home at 11am. Nurse made aware.
== END 2022-09-26 11:00 | disposition home or self-care (01) ==
LOC: ED 08:50 → MS3 09:44
PROVIDERS: Admitting Provider Surgery; Emergency Provider Emergency Medicine; PCP Family Medicine; Visit Provider Surgery
PROC: (CPT 47610; principal; 2022-09-25 11:00)
DX: K80.13 Calculus of gallbladder with acute and chronic cholecystitis with obstruction (principal); G20 Parkinson's disease; I10 Essential (primary) hypertension; K82.A1 Gangrene of gallbladder in cholecystitis; E03.9 Hypothyroidism, unspecified; Z79.899 Other long term (current) drug therapy; Z79.890 Hormone replacement therapy; Z79.82 Long term (current) use of aspirin
CPT/HCPCS: 47562; 00790; 74177; 80053; 83690; 85025; 88304; 88341; 88342; 93005; 96361; 96365; 96366; 96367; 96375; 96376; 99218; 99285; J7030; Q9967; A4216; G0378; J2405; J3490

== ENCOUNTER 2023-03-29 11:06 | Emergency (ER) | payer MEDICARE, OTHER, SELFPAY ==
[2023-03-29 11:06] VITALS: BP 126/72; PULSE 62; RESP 15; TEMP 36.6; O2SAT 98; BMI 27.6
--- NOTE | 2023-03-29 11:30 | ED.VIS.FALL ---
HPI HPI - Fall History of Present Illness Chief Complaint: Fall Informant: patient Narrative Narrative: Patient states he tripped over part of a machine at work and fell to his right upper extremity. He has pain in the shoulder that is actually more in the anterior chest wall lateral pectoralis musculature, the right elbow, and the right wrist where he has mostly scrapes and bruising. No other injuries did not hit his head, no loss consciousness, able to walk without any difficulty or pain in his leg, no trouble breathing or painful respirations. He takes a baby aspirin every day, no other anticoagulant or antiplatelet medications, he has Parkinson's. [facility] Medical History (Updated 03/29/23 @ 13:[address] Miquel Lewis MD) HTN (hypertension) Hypothyroid Parkinson disease Home Medications amlodipine 10 mg tablet 10 tab PO DAILY 04/19/22 [History Last Taken Unknown] aspirin 81 mg tablet,delayed release 81 tab PO DAILY 04/19/22 [History Last Taken Unknown] atenolol 25 mg tablet 25 tab PO DAILY 04/19/22 [History Last Taken Unknown] carbidopa 25 mg-levodopa 100 mg tablet 1 tab PO TID 04/19/22 [History Last Taken Unknown] levothyroxine 50 mcg tablet 50 mcg PO DAILY 04/19/22 [History Last Taken Unknown] triamterene 75 mg-hydrochlorothiazide 50 mg tablet 1 tab PO DAILY 04/19/22 [History Last Taken Unknown] esomeprazole magnesium 40 mg capsule,delayed release (Nexium) 40 mg PO DAILY #30 caps 04/20/22 [Rx Last Taken Unknown] hydrocodone-acetaminophen 5-325mg 5mg-325mg 1 tab PO Q8H 3 days #9 tabs 09/26/22 [Rx Last Taken Unknown] Allergy/AdvReac Type Severity Reaction Status Date / Time No Known Allergies Allergy Verified 04/19/22 23:40 Surgical History (Updated 09/26/22 @ 18:[address] Shelbi Ruth MD) Status post laparoscopic cholecystectomy Social History Smoking Status: Never smoker ROS ROS ED Constitutional Constitutional ED: Denies chills or fever(s) Musculoskeletal Musculoskeletal: Reports extremity pain; Denies neck pain Integumentary Reports Abrasions; Denies rash or wounds Neurologic Neurologic: Denies paresthesias or weakness EXAM Physical Exam Const Vital Signs: 03/29/23 11:06 Temperature 97.8 F Temperature Source Temporal Pulse Rate 62 Respiratory Rate 15 Blood Pressure 126/72 H Blood Pressure Mean 90 Pulse Ox 98 Oxygen Delivery Method Room Air Positive well nourished and well developed General Appearance ED: well developed and NAD HEENT Reports normocephalic atraumatic Eyes PERRL and EOMs intact bilaterally Neck full ROM and supple Chest Wall inspection of chest normal and palpation of chest normal Resp normal respiratory effort, no retractions and clear to auscultation bilaterally Cardio regular rate, regular rhythm and no murmurs Rate: Negative for tachycardic Back/Spine normal ROM and normal to inspection Extremity Extremity Narrative: Tender right olecranon. No other bony tenderness throughout the right hand, wrist, forearm, arm, shoulder. Clavicle nontender. Mild tenderness in the lateral right pectoralis musculature but not the biceps origins. Able to abduct fully at the shoulder, able to fully extend at the elbow. No tenderness at the proximal aspect of the radial head. Full range of motion throughout all other extremities without difficulty. Neuro oriented x3, no focal motor deficits and no sensory deficits noted Sensorium / Orientation: alert Psych mental status grossly normal and thought process normal Skin Skin Narrative: 0.5 cm partial-thickness linear laceration to the posterior aspect of the right elbow, abrasion to the ulnar aspect of the right wrist. Did not appear to need repair. Rashes: no rashes MDM MDM MDM Narrative Medical decision making narrative: Three-view x-ray series of the right humerus to include the elbow and the shoulder negative/normal my interpretation for any fracture, radiology in agreement. Patient reassured, offered ibuprofen for the pain supportive care and work restrictions advised/given. Radiography Diagnostic Testing: Clinical Impression(s) from Imaging Studies Humerus X-Ray 03/29/23 11:34 IMPRESSION: Normal x-ray examination of the humerus. Electronically Signed: Genaro Brown MD at 12:05 EDT , Discharge Plan Triage Chief Complaint: Fall Other Complaint: Upper Extremity Injury ED Provider: Miquel Lewis Dx/Rx/DC Orders Clinical Impression: Contusion of elbow, right, Abrasion of right upper extremity, Contusion of chest wall Instructions: ED Abrasion, ED Contusion, Elbow Prescriptions: No Action atenolol 25 mg tablet 25 tab PO DAILY Label Comments: TAKE 1 TABLET BY MOUTH EVERY DAY aspirin 81 mg tablet,delayed release (DR/EC) 81 tab PO DAILY Label Comments: TAKE 1 TABLET BY MOUTH EVERY DAY amlodipine 10 mg tablet 10 tab PO DAILY Label Comments: TAKE 1 TABLET BY MOUTH EVERY DAY levothyroxine 50 mcg tablet 50 mcg PO DAILY Label Comments: TAKE 1 TABLET BY MOUTH ONCE DAILY. TAKE ON EMPTY STOMACH. FOR THYROID. triamterene-hydrochlorothiazid 75-50 mg tablet 1 tab PO DAILY Label Comments: TAKE 1 TABLET BY MOUTH EVERY DAY carbidopa-levodopa 25-100 mg tablet 1 tab PO TID Label Comments: TAKE 1 TABLET BY MOUTH THREE TIMES A DAY esomeprazole magnesium [Nexium] 40 mg capsule,delayed release(DR/EC) 40 mg PO DAILY Qty: 30 0RF hydrocodone-acetaminophen 5-325 mg tablet 1 tab PO Q8H 3 Days Qty: 9 0RF Stand Alone Forms: Work Status Form Primary Care Provider: Celso Julien Referrals: [facility]Group of Physicians] - As soon as possible Celso Julien MD [Primary Care Provider] - Disposition Disposition: Home, Self Care
--- NOTE | 2023-03-29 11:34 | RAD_ITS ---
STUDY: X-RAY - RIGHT HUMERUS REASON FOR EXAM: Male, 72 years old. Injury shoulder, elbow TECHNIQUE: 3 view(s) of the humerus. COMPARISON: None. FINDINGS: Normal visualized humerus. There is no demonstrated fracture or osseous destructive process. There is no demonstrated soft tissue abnormality. RAD/Humerus min 2 Views IMPRESSION: Normal x-ray examination of the humerus. Electronically Signed: Genaro Brown MD at 12:05 EDT ,
[2023-03-29] MEDS: Ibuprofen 200 MG Tablet 400 MG PO (14:06)
== END 2023-03-29 14:09 | disposition home or self-care (01) ==
PROVIDERS: Emergency Provider Emergency Medicine; PCP Family Medicine; Visit Provider Emergency Medicine
DX: S51.011A Laceration without foreign body of right elbow, initial encounter (principal); S40.811A Abrasion of right upper arm, initial encounter; S20.20XA Contusion of thorax, unspecified, initial encounter; S50.01XA Contusion of right elbow, initial encounter; I10 Essential (primary) hypertension; W01.0XXA Fall on same level from slipping, tripping and stumbling without subsequent striking against object, initial encounter; Y99.0 Civilian activity done for income or pay
CPT/HCPCS: 73060; 99282

== ENCOUNTER 2023-10-19 08:01 | Inpatient (IN) | payer MEDICARE, OTHER, SELFPAY ==
[2023-10-19] VITALS (12 sets, daily range): BP systolic 104–143; BP diastolic 62–96; PULSE 68–128; RESP 16–20; TEMP 36.6–37.4; O2SAT 94–98; BMI 28.7; BMI 27.4
--- NOTE | 2023-10-19 08:07 | CT_ITS ---
HISTORY: TIA, speech and vision changes. TECHNIQUE: Multiple axial images were obtained of the head without intravenous contrast. A radiation dose optimization technique was used for this scan. 257 images. COMPARISON: None. FINDINGS: BRAIN PARENCHYMA: Multiple foci and zones of low attenuation in the bilateral cerebral white matter compatible with chronic small vessel ischemic gliosis. No acute intra-axial hemorrhage identified. CSF SPACES: Generalized volume loss. No midline shift or other significant mass effect. No acute extra-axial hemorrhage seen. OTHER: Intact calvarium. No significant air fluid levels in the paranasal sinuses or mastoid air cells. Unremarkable orbits. CT/Brain/Head without Contrast IMPRESSION: No acute intracranial process identified. Chronic involutional and white matter changes. Electronically Signed: Carmencita Al MD at 8:43 EST ,
--- NOTE | 2023-10-19 08:08 | ED.VIS.STROK ---
HPI History of Present Illness Chief Complaint: Neuro S/Sx Informant: patient Narrative Narrative: Patient is a 73-year-old male with history of Parkinson's disease, hypertension, hypothyroid and reported history of TIA presenting with neurologic symptoms. Patient states that he woke up around 3 AM was watching TV. He was at his baseline. Around 5:30 AM he started to notice that his vision seems a little blurry. He called work to say that he was can be running late and he could see the numbers right. He also notes that when he was trying to talk he could not get the correct words out. He called 911 for concern that he was having a mini stroke. Denies associated numbness or tingling. Currently states he is feeling better and his symptoms have all resolved. Denies any recent falls or head injuries. Denies any recent medication changes. Denies any recent URI or flulike symptoms. Denies any chest pain or shortness of breath. Denies any other complaints at this time. States that over the years he has had some TIA symptoms does not get ever really been evaluated for it. He notes he does take daily 81 mg aspirin. [facility] Medical History HTN (hypertension) Hypothyroid Parkinson disease Home Medications amlodipine 10 mg tablet 10 tab PO DAILY 04/19/22 [History Last Taken Unknown] aspirin 81 mg tablet,delayed release 81 tab PO DAILY 04/19/22 [History Last Taken Unknown] atenolol 25 mg tablet 25 tab PO DAILY 04/19/22 [History Last Taken Unknown] carbidopa 25 mg-levodopa 100 mg tablet 1 tab PO TID 04/19/22 [History Last Taken Unknown] levothyroxine 50 mcg tablet 50 mcg PO DAILY 04/19/22 [History Last Taken Unknown] triamterene 75 mg-hydrochlorothiazide 50 mg tablet 1 tab PO DAILY 04/19/22 [History Last Taken Unknown] Allergy/AdvReac Type Severity Reaction Status Date / Time No Known Allergies Allergy Verified 10/19/23 08:01 Surgical History Status post laparoscopic cholecystectomy Social History Smoking Status: Never smoker ROS ROS ED Constitutional Constitutional ED: Denies chills or fever(s) Eyes Eyes: Reports blurry vision ENT ENT ED: Denies sore throat Cardiovascular Cardiovascular: Denies chest pain or palpitations Respiratory/Chest Respiratory/Chest: Denies cough or dyspnea Gastrointestinal Gastrointestinal: Denies abdominal pain, nausea or vomiting Genitourinary Genitourinary ED: Denies dysuria or urinary frequency Musculoskeletal Musculoskeletal: Denies arthralgias or myalgias Integumentary Denies rash Neurologic Neurologic: Reports other Details: Tremor, transient episode of expressive aphasia?resolved ; Denies headache(s), paresthesias or weakness Psychiatric Psychiatric: Denies anxiety Hematologic/Lymphatic Hematologic/Lymphatic: Denies easy bleeding or easy bruising EXAM Physical Exam Const Vital Signs: 10/19/23 08:02 10/19/23 10:01 Temperature 98.2 F Temperature Source Temporal Pulse Rate 128 H 76 Respiratory Rate 20 H 19 H Blood Pressure 143/96 H 137/92 H Blood Pressure Mean 111 107 Pulse Ox 97 97 Oxygen Delivery Method Room Air Positive well nourished and well developed General Appearance ED: well developed and NAD HEENT Reports moist mucous membranes atraumatic Eyes PERRL and EOMs intact bilaterally Eyes Narrative: No field cut appreciated, no nystagmus Neck supple Chest Wall inspection of chest normal and palpation of chest normal Resp normal respiratory effort and clear to auscultation bilaterally Cardio Rate: regular rate Rhythm: regular rhythm GI normal to inspection, nondistended, normoactive bowel sounds and soft to palpation Extremity normal to inspection General Extremety ED: Negative for deformity or edema General Extremity: Negative for deformity or edema Neuro oriented x3, CN's II-XII intact bilaterally and no sensory deficits noted Neuro Narrative: NIH equals 0. Patient does have pill-rolling tremor consistent with his history of Parkinson's Speech: speech normal Psych mental status grossly normal Skin no wounds Rashes: no rashes NIHSS NIHSS Initial: 1a Level of Consciousness: 0 1b LOC Questions (Score 2 if aphasic/stupor): 0 1c LOC Commands (Only score 1st attempt): 0 2 Best Gaze (If aphasic, use reflexive mvmts.): 0 3 Visual: 0 4 Facial Palsy: 0 5 Motor Arm Right (UN = amputation/fusion): 0 5 Motor Arm Left: 0 6 Motor Leg Right: 0 6 Motor Leg Left: 0 7 Limb ataxia (Only + if out of proportion): 0 8 Sensory (Aphasia/stupor=0 or 1, coma=2): 0 9 Best Language: 0 10 Dysarthria (mute, coma=2, intubated=UN): 0 11 Extinction and Inattention (only scored if +): 0 Total Score: 0 MDM MDM MDM Narrative Medical decision making narrative: Waited for an episode of neurologic symptoms. Appears nontoxic no acute distress. Symptoms have since resolved so therefore stroke alert is not called. Will perform a TIA workup. Records from [facility] reviewed. PCP summary from 10/03/23 shows TIA listed on his problem list on 12/22/2006, no documentation of history of atrial fibrillation per PCP problem list. Does have bilateral carotid artery stenosis document on 05/31/2021. Medication list as of 10/12/2023 shows Synthroid 50 mcg, Norvasc 10 mg, triamterene/HCTZ 75/50 mg, atenolol 25 mg, 80 mg aspirin and Sinemet 25/100 mg Mildly tachycardic. He has a mild leukocytosis of 13.3 with uncertain clinical significance. No obvious infection on exam. Chest x-ray viewed by myself as well as radiology does not show any acute process. CT of the brain does not show any acute intracranial hemorrhage or other acute process. Patient does appear to be new onset atrial fibrillation with heart rate fluctuating between 100s to 120s. Is given 1 dose of IV metoprolol 5 mg with rate control. He is asymptomatic otherwise. He is given 500 cc bolus as he has a mild bump in his creatinine as well (baseline is 1.25 and today he is 1.4). Patient took aspirin prior to arrival. Patient be admitted for TIA workup as well as further evaluation of this new onset atrial fibrillation. He is agreeable. He remains hemodynamically stable in the ER. Case discussed with Dr. Calix. History & Record Review Discussion w/independent historian: EMS personnel and Patient Additional record(s) reviewed:: Prior outpatient record Lab Data Labs: Laboratory Results - last 24 hr 10/19/23 10/19/23 08:04 08:40 WBC 13.3 H RBC 5.55 Hgb 15.4 Hct 45.9 MCV 82.7 MCH 27.7 MCHC 33.6 RDW Std Deviation 39.3 RDW Coeff of [place] 13.2 Plt Count 227 MPV 11.0 Immature Gran % (Auto) 0.400 Neut % (Auto) 76.2 H Lymph % (Auto) 12.7 L [place] % (Auto) 9.0 Eos % (Auto) 0.8 Baso % (Auto) 0.9 Absolute Neuts (auto) 10.1 H Absolute Lymphs (auto) 1.69 Nucleated RBC % 0 PT 13.0 INR 1.0 APTT 28.1 Sodium 141 Potassium 3.5 Chloride 103 Carbon Dioxide 29.0 Anion Gap 9 BUN 28 H Creatinine 1.40 H Estim Creat Clear Calc 48.56 Est GFR (MDRD) Af Amer 64 Est GFR (MDRD) Non-Af 52 L BUN/Creatinine Ratio 20.0 Glucose 112 H Calcium 9.4 Urine Color YELLOW Urine Clarity Clear Urine pH 6.0 Ur Specific [place] 1.020 Urine Protein Negative Urine Glucose (UA) Normal Urine Ketones Negative Urine Occult Blood 50 H Urine Nitrite Negative Urine Bilirubin Negative Urine Urobilinogen 1 H Ur Leukocyte Esterase Negative Urine RBC 10-25 SEEN Urine WBC 10-25 SEEN Ur Squamous Epith Cells 0 SEEN Urine Bacteria 0 SEEN Urine Mucus 0 SEEN Radiography Chest X-Ray - ED: 1 View, Read by ED Physician, Read by Radiologist and No Acute Disease Diagnostic Testing: Clinical Impression(s) from Imaging Studies Brain CT 10/19/23 08:07 IMPRESSION: No acute intracranial process identified. Chronic involutional and white matter changes. Electronically Signed: Carmencita Al MD at 8:43 EST , Chest X-Ray 10/19/23 08:25 IMPRESSION: No acute cardiopulmonary process identified. Electronically Signed: Carmencita Al MD at 8:49 EST , Rhythm Strip Rhythm Strip: A-fib Rate: 113 Ectopy: None EKG Initial EKG: Attestation: I personally reviewed and interpreted this EKG as follows: Interpretation: Atrial Fibrillation Comments: Atrial fibrillation with ventricular response at a rate of 113 bpm Normal axis Nonspecific T wave abnormalities Normal intervals Compared to prior EKG on 09/25/2022 patient is now in A-fib Management Discussion w/another healthcare provider: Hospitalist Discharge Plan Triage Chief Complaint: Neuro S/Sx ED Provider: Tala Parker Dx/Rx/DC Orders Clinical Impression: Atrial fibrillation, Brain TIA, Elevated serum creatinine Prescriptions: No Action atenolol 25 mg tablet 25 tab PO DAILY Patient Comments: TAKE 1 TABLET BY MOUTH EVERY DAY aspirin 81 mg tablet,delayed release (DR/EC) 81 tab PO DAILY Patient Comments: TAKE 1 TABLET BY MOUTH EVERY DAY amlodipine 10 mg tablet 10 tab PO DAILY Patient Comments: TAKE 1 TABLET BY MOUTH EVERY DAY levothyroxine 50 mcg tablet 50 mcg PO DAILY Patient Comments: TAKE 1 TABLET BY MOUTH ONCE DAILY. TAKE ON EMPTY STOMACH. FOR THYROID. triamterene-hydrochlorothiazid 75-50 mg tablet 1 tab PO DAILY Patient Comments: TAKE 1 TABLET BY MOUTH EVERY DAY carbidopa-levodopa 25-100 mg tablet 1 tab PO TID Patient Comments: TAKE 1 TABLET BY MOUTH THREE TIMES A DAY Primary Care Provider: Celso Julien Referrals: Celso Julien MD [Primary Care Provider] - Disposition Disposition: Acute Care Hospital [facility]
[2023-10-19 08:16] LABS: Absolute Lymphocyte Count 1.69 X10^3/uL (0.83-4.51); Absolute Neutrophil Count 10.1 X10^3/uL (2.0-7.7); Basophil# 0.12 X10^3/uL; Basophil% 0.9 % (0-1); Eosinophil# 0.11 X10^3/uL; Eosinophils% 0.8 % (0-5); Hematocrit 45.9 % (40-54); Hemoglobin 15.4 g/dL (13.0-16.5); Lymphocyte # 1.69 X10^3/ul (0.83-4.51); Lymphocyte % 12.7 % (19-41); Mean Corp Hgb Conc 33.6 g/dL (32-36); Mean Corpuscular Hgb 27.7 pg (27.0-32.0); Mean Corpuscular Volume 82.7 fL (80-94); Monocyte# 1.19 X10^3/uL; NRBC Flagged by Analyzer 0 % (0-5); Neutrophil # 10.11 X10^3/uL (2.7-7.7); Neutrophil % 76.2 % (47-70); Platelet Count 227 K/mm3 (150-450); RBC Distribution Width CV 13.2 % (11.6-14.6); RBC Distribution Width SD 39.3 fl (35.1-43.9); Red Blood Count 5.55 M/mm3 (4.6-6.2); White Blood Count 13.3 K/mm3 (4.4-11.0)
--- NOTE | 2023-10-19 08:25 | RAD_ITS ---
HISTORY: neuro symptoms. TECHNIQUE: XR Chest 1 View. COMPARISON: 04/20/2022. FINDINGS: CARDIOMEDIASTINAL BORDERS: Cardiac silhouette within normal limits in size. Mediastinal contour unremarkable. LUNGS: Radiographically clear. PLEURA: No pleural effusion or pneumothorax seen. OSSEOUS STRUCTURES: Spinal osteophytes present. RAD/Chest 1 View (Portable) IMPRESSION: No acute cardiopulmonary process identified. Electronically Signed: Carmencita Al MD at 8:49 EST ,
[2023-10-19 08:28] LABS: Anion Gap 9 (5-15); BUN 28 mg/dL (7-18); Calcium,Total 9.4 mg/dL (8.5-10.1); Chloride 103 mmol/L (98-107); EST Glomerular Filtration Rate 52 mL/min (>60); Est Glom Filt Rate - Afr Amer 64 mL/min (>60); Estimated Creatinine Clearance 48.56 ml/min; Glucose 112 mg/dL (74-106); Potassium 3.5 mmol/L (3.5-5.1); Sodium Level 141 mmol/L (136-145)
[2023-10-19 08:48] LABS: Bacteria 0 SEEN /hpf (None Seen); Mucous, Urine 0 SEEN /hpf (<or=2+); Squamous Epithelial Cells - UA 0 SEEN /hpf (0-5)
[2023-10-19 09:04] LABS: Glucose, Dipstick Normal (Normal); Ketone-Dipstick Negative (Negative); Leukocyte Esterase-Dipstick Negative /ul (Negative); Nitrite-Dipstick Negative (Negative); Occult Blood-Urine 50 /ul (Negative); Protein-Dipstick Negative (Negative); Urine Bilirubin Dipstick Negative (Negative); Urine Urobilinogen 1 mg/dl (Normal)
[2023-10-19 09:07] LABS: Partial Thromboplast Time 28.1 Seconds (24.1-36.2)
[2023-10-19] MEDS: 0.9% Normal Saline (500mL Bag) 500 ML 999 ML IV (09:10)
[2023-10-19 09:12] LABS: Color, Urine YELLOW (Yellow); Urine Clarity Clear (Clear)
[2023-10-19 09:19] LABS: Red Blood Cells-Urine 10-25 SEEN /hpf (0-5); White Blood Cells 10-25 SEEN /hpf (0-5)
[2023-10-19] MEDS: Metoprolol Tartrate 5 MG/5 ML Vial IV (09:35)
--- NOTE | 2023-10-19 10:13 | MRI_ITS ---
ACR Level 3 findings have been noted. An addendum which confirms receipt of the report will follow. HISTORY: TIA. TECHNIQUE: Multiplanar and multisequence MR images of the brain were obtained without contrast. 285 images. COMPARISON: CT same day. FINDINGS: BRAIN PARENCHYMA: Punctate focus of restricted diffusion in the right posterior cerebellum. Multiple foci and small zones of increased T2 FLAIR signal in the bilateral cerebral white matter. No acute intracranial hemorrhage identified. CSF SPACES: Mild volume loss. No significant midline shift or other mass effect.No extra-axial fluid collection. VASCULAR SYSTEM: Major intracranial flow voids are maintained. PARANASAL SINUSES AND MASTOID AIR CELLS: No significant air fluid levels. ORBITS: Symmetric contents. MRI/Brain without Contrast IMPRESSION: Acute lacunar infarct in the right cerebellum. Mild chronic involutional and white matter changes. Electronically Signed: Carmencita Al MD at 15:16 EST ,
--- NOTE | 2023-10-19 10:13 | CT_ITS ---
HISTORY: Neuro deficit, acute, stroke suspected. TECHNIQUE: [place]/head and carotid CT angiogram protocol was performed after the intravenous administration of 100 mL Isovue 370. NASCET criteria using the distal ICAs for comparison were used for evaluation of stenoses. 3D reconstructions were reviewed. A radiation dose optimization technique was used for this scan. 2202 images. COMPARISON: CT head same day. FINDINGS: AORTIC ARCH AND BRANCHES: No significant stenosis. Minimal atherosclerosis of the arch. RIGHT CCA: Noncalcified and calcified plaque at the bifurcation with less than 30% stenosis. No occlusion, significant stenosis or dissection. RIGHT ICA: 7:30 percent stenosis at the origin. No occlusion, significant stenosis or dissection. LEFT CCA: Noncalcified plaque at the bifurcation with 30% stenosis. No occlusion, significant stenosis or dissection. LEFT ICA: Noncalcified and calcified plaque at the origin with less than 30% stenosis proximally. No occlusion, significant stenosis or dissection. RIGHT VERTEBRAL ARTERY: No occlusion, significant stenosis or dissection. LEFT VERTEBRAL ARTERY: No occlusion, significant stenosis or dissection. SOFT TISSUES: Enlarged multinodular thyroid. ICAs: No significant stenosis at the intracranial/visualized segments. Calcified plaque at both carotid siphons. ACAs: No significant stenosis at the visualized segments. MCAs: No significant stenosis at the visualized segments. technical agronomist: No significant stenosis at the visualized segments. BASILAR ARTERY: No significant stenosis. VERTEBRAL ARTERIES: Hypoplastic and patent left vertebral artery. Dominant right vertebral artery with calcified plaque and less than 30% stenosis. No evidence of intracranial aneurysm or vascular malformation. CT/CTA Head AND Neck W/ Contrast IMPRESSION: No evidence for significant stenosis or occlusion in the carotid or vertebral arteries of the neck. Multinodular thyroid goiter. No evidence for large vessel occlusion in the [place] region. Electronically Signed: Carmencita Al MD at 11:18 EST ,
--- NOTE | 2023-10-19 10:13 | ECHOCS_ITS ---
Reason For Study: TIA/CVA Procedure This was a 2D Doppler, Color Flow transthoracic echocardiogram. The study was technically difficult. Exam performed portable in patient room. Left Ventricle Normal LV size. Left ventricular systolic function is normal. The estimated ejection fraction is 60 %. Stage 1 diastolic dysfunction. No regional wall motion abnormalities noted. Right Ventricle Normal RV size. Normal systolic function. Atria Normal left atrium. Normal right atrium. Bubble contrast study negative for right to left interatrial shunt. Mitral Valve Normal mitral valve. Mild (1+) mitral valve insufficiency. Tricuspid Valve Normal tricuspid valve. Mild tricuspid valve insufficiency. Pulmonary artery systolic pressure is 34 mmHg. Aortic Valve Trisinus/trileaflet aortic valve. Mild focal aortic valve calcification. Mild (1+) aortic valve insufficiency. Pulmonic Valve Normal pulmonic valve. Great Vessels Normal aortic root. The pulmonary artery is normal size. Normal inferior vena cava. Pericardium/Pleural No pericardial effusion. Medication Diluted definity 3ml given slow IV push to enhance endocardial definition. Performed a rapid injection of agitated mix of 9 cc saline and 1cc air to assess for atrial septal defect. MMode/2D Measurements & Calculations LVIDd: 5.1 cm IVSd: 0.82 cm Ao root diam: 3.4 cm LVIDs: 3.5 cm LVPWd: 0.89 cm RVDd: 3.9 cm FS: 30.7 % LAV(MOD-bp): 33.9 ml LVAd ap4: 31.9 cm2 SV(MOD-sp4): 60.2 ml LAV(MOD-bp) Indexed: 15.9 ml/m2 LVLd ap4: 8.1 cm LAV(MOD-sp2): 37.6 ml EDV(MOD-sp4): 103.6 ml LAV(MOD-sp4): 31.7 ml EDV(sp4-el): 106.9 ml LVAs ap4: 19.3 cm2 LVLs ap4: 7.1 cm ESV(MOD-sp4): 43.4 ml ESV(sp4-el): 44.4 ml EF(MOD-sp4): 58.1 % EF(sp4-el): 58.5 % SV(sp4-el): 62.5 ml LA A4 area: 13.9 cm2 LA dimension(2D): 3.8 cm RA A4 area: 13.5 cm2 Time Measurements MV dec time: 0.21 sec Doppler Measurements & Calculations MV E max mitch: 84.1 cm/sec Lat Peak E' Mitch: 10.9 cm/sec Med Peak E' Mitch: 11.4 cm/sec MV A max mitch: 85.5 cm/sec E/E' lat: 7.7 E/E' med: 7.4 MV E/A: 0.98 Ao V2 max: 107.8 cm/sec LV V1 max: 89.2 cm/sec PA V2 max: 101.3 cm/sec Ao max P.7 mmHg LV V1 max P.2 mmHg TR max mitch: 276.6 cm/sec TR max P.6 mmHg ECHO/Echo Complete W/ Contrast Interpretation Summary Normal LV size. Left ventricular systolic function is normal. The estimated ejection fraction is 60 %. Bubble contrast study negative for right to left interatrial shunt. Stage 1 diastolic dysfunction. Ordering Physician: Jonah Calix Referring Physician: SYDNEY HUNT Performed By: Kate Arzate RDCS
--- NOTE | 2023-10-19 10:15 | PCM.HP.STD ---
HPI - General General Date of Admission: 10/19/23 Date of Service: 10/19/23 Chief Complaint: Difficulty speaking HPI Narrative TRACI COOPER, is a 73 M with history of Parkinson's disease who presented to the emergency department with difficulty speaking as well as finding his words. Patient symptoms had apparently resolved at the time of presentation to the ED. Patient was however found to be in A-fib does not have any known diagnosis of atrial fibrillation. Given his presentation patient was admitted to monitored bed for subsequent evaluation and management [facility] Medical History HTN (hypertension) Hypothyroid Parkinson disease Home Medications amlodipine 10 mg tablet 10 tab PO DAILY 04/19/22 [History Last Taken 10/19/23] aspirin 81 mg tablet,delayed release 81 tab PO DAILY 04/19/22 [History Last Taken 10/19/23] atenolol 25 mg tablet 25 tab PO DAILY 04/19/22 [History Last Taken Unknown] carbidopa 25 mg-levodopa 100 mg tablet 1 tab PO TID 04/19/22 [History Last Taken 10/19/23] levothyroxine 50 mcg tablet 50 mcg PO DAILY 04/19/22 [History Last Taken 10/19/23] triamterene 75 mg-hydrochlorothiazide 50 mg tablet 1 tab PO DAILY 04/19/22 [History Last Taken Unknown] Allergy/AdvReac Type Severity Reaction Status Date / Time No Known Allergies Allergy Verified 10/19/23 08:01 Surgical History Status post laparoscopic cholecystectomy Social History Smoking Status: Former smoker ROS ROS Narrative GENERAL: denies fever, chills, night sweats, weight loss, anorexia HEENT: denies headache, sinus congestion, or drainage, dysphagia RESPIRATORY: denies cough, sputum production, shortness of breath, dyspnea on exertion CARDIAC: denies chest pain, palpitations, orthopnea, PND GASTROINTESTINAL: denies abdominal pain, nausea, vomiting, melena, GENITOURINARY: denies dysuria, urgency, frequency, heamaturia EXTREMITY: denies swelling MUSCULOSKELETAL: denies current joint pain or tenderness NEUROLOGIC: denies focal weakness, HEMATOLOGIC: denies easy bruising and/or hemorrhage INTEGUMENT: denies rashes PSYCHIATRIC: denies suicidal or homicidal ideation Vital Signs Vital Signs Vital Signs: 10/19/23 08:02 10/19/23 10:01 Temperature 98.2 F Temperature Source Temporal Pulse Rate 128 H 76 Respiratory Rate 20 H 19 H Blood Pressure 143/96 H 137/92 H Blood Pressure Mean 111 107 Pulse Ox 97 97 Oxygen Delivery Method Room Air Weight Weight: 93.4 kg Body Mass Index (BMI) 28.7 Physical Exam Narrative GENERAL: cooperative HEENT: Atraumatic; normocephalic EYES; Anicteric, Normal Conjunctiva NECK; supple, normal thyroid, RESPIRATORY: Diminished to auscultation CARDIOVASCULAR: Irregular S1-S2 GI: soft, normoactive bowel sounds, : No Renal angle tenderness; EXTREMITIES: No edema, no clubbing, MUSCULOSKELETAL: no muscle wasting NEURO: Awake; no lateralizing signs. SKIN: No Rash PSYCH; Flat affect Results Lab / Micro Data 10/19/23 08:04 10/19/23 08:04 Labs: Laboratory Results - last 24 hr 10/19/23 08:04: WBC 13.3 H, RBC 5.55, Hgb 15.4, Hct 45.9, MCV 82.7, MCH 27.7, MCHC 33.6, RDW Std Deviation 39.3, RDW Coeff of [place] 13.2, Plt Count 227, MPV 11.0, Immature Gran % (Auto) 0.400, Neut % (Auto) 76.2 H, Lymph % (Auto) 12.7 L, Grand % (Auto) 9.0, Eos % (Auto) 0.8, Baso % (Auto) 0.9, Absolute Neuts (auto) 10.1 H, Absolute Lymphs (auto) 1.69, Nucleated RBC % 0, PT 13.0, INR 1.0, APTT 28.1, Sodium 141, Potassium 3.5, Chloride 103, Carbon Dioxide 29.0, Anion Gap 9, BUN 28 H, Creatinine 1.40 H, Estim Creat Clear Calc 48.56, Est GFR (MDRD) Af Amer 64, Est GFR (MDRD) Non-Af 52 L, BUN/Creatinine Ratio 20.0, Glucose 112 H, Calcium 9.4 10/19/23 08:40: Urine Color YELLOW, Urine Clarity Clear, Urine pH 6.0, Ur Specific [place] 1.020, Urine Protein Negative, Urine Glucose (UA) Normal, Urine Ketones Negative, Urine Occult Blood 50 H, Urine Nitrite Negative, Urine Bilirubin Negative, Urine Urobilinogen 1 H, Ur Leukocyte Esterase Negative, Urine RBC 10-25 SEEN, Urine WBC 10-25 SEEN, Ur Squamous Epith Cells 0 SEEN, Urine Bacteria 0 SEEN, Urine Mucus 0 SEEN Rhythm Strip Rhythm Strip: A-fib Rate: 113 Ectopy: None Imagaing Radiology Impression Brain CT 10/19/23 08:07 IMPRESSION: No acute intracranial process identified. Chronic involutional and white matter changes. Electronically Signed: Carmencita Al MD at 8:43 EST , Chest X-Ray 10/19/23 08:25 IMPRESSION: No acute cardiopulmonary process identified. Electronically Signed: Carmencita Al MD at 8:49 EST , Assessment & Plan Assessment/Plan (1) Brain TIA: (2) Atrial fibrillation: (3) History of Parkinson's disease: PLAN: Plan Patient is a 73-year-old gentleman presenting with speech difficulty 1. Acute CVA ? Patient presented with speech difficulty. Initial initial head CT was unremarkable however subsequent MRI demonstrated acute lacunar infarct in the right cerebellum with mild chronic involutional and white matter changes. Patient started on dual antiplatelet therapy with consultation placed to neurology. As part of his management ordered CT angio, and 2D echo. Also ordered PT/OT/ST 2. Parkinson's disease I did continue patient antihypertensive medication 3. A-fib ? Patient does not have any history of previous A-fib was found to be in A-fib on admission. Admitted to telemetry for continuous monitoring. Started on low-dose antiplatelet therapy 4. Hypertension - Blood pressure controlled, home medications continued with dose adjustment as needed 5. Acute kidney injury ? Patient creatinine from 09/25/2022 was 1.15, creatinine on admission was 1.40 started on IV fluid with subsequent monitoring of electrolytes ordered 6. Hypothyroidism - Patient is on levothyroxine home dose continued 7. DVT prophylaxis ? Started on apixaban for his acute CVA Time spent in the patient's overall evaluation,decision-making process, review of diagnostic data, adjustment of management, discussion with other providers, nursing nursing and ancillary staff involved in patient's care documentation, 75 Minutes Advance planning; did discuss with the patient regarding advanced directives as well as CODE STATUS. Did explain the various scenarios involved ( FULL CODE, DNR CCA, DNR CCA with no intubation, and DNR CC and what each meant) patient elected to remain full code with CPR and intubation if needed. Order was placed. Time spent on discussion 18 minutes. Charges/Coding Visit Charges Inpatient E&M: 51042 Init Hosp L3
[2023-10-19 10:44] LABS: Thyroid Stim Hormone (TSH) 2.88 uIU/mL (0.358-3.74)
--- OUTSIDE RECORDS SUMMARY | 2023-10-19 11:11 | XMS RPT_ITS | CCD ---
Author Name Unknown Address [facility] [facility] [address] [place] [address] Organization [facility] Care Team Providers Care Straddle Carrier Operator Name Role Phone Sydney Julien MD Primary Care Provider SYDNEY JULIEN Primary Care Unavailable Mamadou WU Attending Unavailable SADE BECKMAN Referring Unavailable SDAE BECKMAN Attending Unavailable SYDNEY JULIEN Primary Care Unavailable SYDNEY JULIEN Primary Care Unavailable Mamadou WU Attending Unavailable MARGIE HILL Attending Unavailable SYDNEY JULIEN Primary Care Unavailable SADE BECKMAN Attending Unavailable SYDNEY JULIEN Primary Care Unavailable SYDNEY JULIEN Primary Care Unavailable MANUELA PHAM Attending Unavailable ADRIAN CAMARA Referring Unavailable SYDNEY JULIEN Primary Care Unavailable Mamadou WU Referring Unavailable SYDNEY JULIEN Primary Care Unavailable Mamadou WU Referring Unavailable Medications Current Medications Medication Drug Class(es) Dates Sig (Normalized) Sig (Original) carbidopa 25 mg / levodopa 100 mg oral tablet (20 sources) Aromatic Amino Acid Decarboxylation Inhibitor, Aromatic Amino Acid Start: 12-27-2022 End: 12-27-2023 take 1 tablet by mouth four times daily carbidopa-levodo pa (SINEMET 25-100) 25-100 mg per tablet Indications: Parkinson's disease Take 1 tablet by mouth four times daily. 360 tablet 3 12/27/2022 12/27/2023 Active Completed/Discontinued Medications Medication Drug Class(es) Dates Sig (Normalized) Sig (Original) acetaminophen 325 mg / HYDROcodone bitartrate 5 mg oral tablet (4 sources) Opioid Agonist Start: 09-26-2022 End: 12-27-2022 HYDROcodone-aceta minophen (NORCO) 5-325 mg per tablet amLODIPine 10 mg oral tablet (20 sources) Dihydropyridine Calcium Channel Larry Start: 04-26-2021 End: 07-03-2023 take 1 tablet by mouth once daily amLODIPine (NORVASC) 10 mg tablet Indications: Essential hypertension Take 1 tablet by mouth once daily. 90 tablet 3 07/03/2023 Active Problems Active Problems Problem Classification Problem Date Documented Da te Episodic/Chronic Anxiety disorders (20 sources) Anxiety; Translations: [Anxiety disorder, unspecified] Onset: 08-21-2019 08-21-2019 Chronic Diseases of mouth; excluding dental (1 source) Excessive salivation; Translations: [Disturbances of salivary secretion] Episodic Disorders of lipid metabolism (20 sources) Hyperlipidemia; Translations: [Hyperlipidemia, unspecified] Onset: 04-23-2007 09-25-2015 Chronic Essential hypertension (20 sources) Essential hypertension; Translations: [Essential (primary) hypertension] Onset: 11-05-2007 10-05-2015 Chronic Gout and other crystal arthropathies (20 sources) Gout; Translations: [Gout, unspecified] Onset: 10-19-2016 10-19-2016 Chronic Occlusion or stenosis of precerebral arteries (20 sources) Bilateral stenosis of carotid arteries; Translations: [Occlusion and stenosis of bilateral carotid arteries] Onset: 05-31-2021 05-31-2021 Chronic Other eye disorders (20 sources) Posterior vitreous detachment of left eye; Translations: [Vitreous degeneration, left eye] Onset: 01-02-2018 01-02-2018 Chronic Other eye disorders (20 sources) Bilateral vitreous floaters; Translations: [Other vitreous opacities, bilateral] Onset: 01-02-2018 01-02-2018 Chronic Other hereditary and degenerative nervous system conditions (5 sources) Restless legs; Translations: [Restless legs syndrome] Onset: 08-21-2019 08-21-2019 Chronic Other liver diseases (20 sources) Steatosis of liver; Translations: [Fatty (change of) liver, not elsewhere classified] Onset: 11-30-2017 11-30-2017 Chronic Other liver diseases (1 source) Fatty (change of) liver, not elsewhere classified; Translations: [Fatty liver] Onset: 11-30-2017 Chronic Other non-traumatic joint disorders (1 source) Shoulder pain; Translations: [Pain in right shoulder] Episodic Other screening for suspected conditions (not mental disorders or infectious disease) (1 source) Patient encounter status; Translations: [Encounter for screening for malignant neoplasm of colon] Episodic Parkinson`s disease (20 sources) Parkinson's disease; Translations: [Parkinson's disease] Onset: 08-21-2019 08-21-2019 Chronic Parkinson`s disease (1 source) Parkinson`s disease; Translations: [Parkinson's disease without dyskinesia or fluctuating manifestations] Onset: 02-09-2022 Residual codes; unclassified (20 sources) REM sleep behavior disorder; Translations: [REM sleep behavior disorder] Onset: 08-21-2019 08-21-2019 Chronic Residual codes; unclassified (1 source) REM sleep behavior disorder; Translations: [REM sleep behavior disorder] Onset: 08-21-2019 Chronic Thyroid disorders (20 sources) Acquired hypothyroidism; Translations: [Hypothyroidism, unspecified] Onset: 05-06-2021 05-06-2021 Chronic Transient cerebral ischemia (20 sources) Cerebral ischemia; Translations: [Transient cerebral ischemic attack, unspecified] Onset: 12-22-2006 12-22-2006 Chronic Past or Other Problems Problem Classification Problem Date Documented Date Episodic/Chronic Biliary tract disease (20 sources) Cholelithiasis without obstruction; Translations: [Calculus of gallbladder without cholecystitis without obstruction] Onset: 11-30-2017 11-30-2017 Episodic Calculus of urinary tract (20 sources) Kidney stone; Translations: [Calculus of kidney] Onset: 06-08-2007 06-08-2007 Episodic Other non-traumatic joint disorders (1 source) Pain in right shoulder; Translations: [Acute pain of right shoulder] Onset: 04-04-2023 Episodic Results Test Name Value Interpretation Reference Range Facil ity Vital Signs Date Time Vital Sign Value Performing Clinician Faci lity 07-18-2023 07:53-0400 Body height 180.3 cm Sade Beckman APRN.CNP Work Phone: [facility] 07-18-2023 07:53-0400 Body weight 88.27 kg Sade Beckman APRN.CNP Work Phone: [facility] 07-18-2023 07:53-0400 SaO2% (BldA) [Mass fraction] 96 % Sade Beckman APRN.CNP Work Phone: [facility] 04-04-2023 10:12-0400 Diastolic blood pressure 70 mm[Hg] Manuela Haagen FINANCIAL AID COORDINATOR.SCHOOL STANDARDS COACH Work Phone: [facility] 04-04-2023 10:12-0400 Heart rate 57 /min Manuela Haagen FINANCIAL AID COORDINATOR.SCHOOL STANDARDS COACH Work Phone: [facility] 04-04-2023 10:12-0400 Respiratory rate 16 /min Manuela Childressagen FINANCIAL AID COORDINATOR.SCHOOL STANDARDS COACH Work Phone: [facility] 04-04-2023 10:12-0400 SaO2% (BldA) [Mass fraction] 96 % Manuela Childressagen FINANCIAL AID COORDINATOR.SCHOOL STANDARDS COACH Work Phone: [facility] 04-04-2023 10:12-0400 Systolic blood pressure 112 mm[Hg] Manuela Haagen FINANCIAL AID COORDINATOR.SCHOOL STANDARDS COACH Work Phone: [facility] 02-14-2023 07:52-0400 Body weight 90.72 kg NA Wu PA-C Work Phone: [facility] 02-14-2023 07:52-0400 Diastolic blood pressure 60 mm[Hg] NA Wu PA-C Work Phone: [facility] 02-14-2023 07:52-0400 Heart rate 50 /min NA Wu PA-C Work Phone: [facility] 02-14-2023 07:52-0400 SaO2% (BldA) [Mass fraction] 98 % NA Wu PA-C Work Phone: [facility] 02-14-2023 07:52-0400 Systolic blood pressure 126 mm[Hg] NA Wu PA-C Work Phone: [facility] 12-27-2022 08:48-0400 Body height 180.3 cm Sade Beckman FINANCIAL AID COORDINATOR.SCHOOL STANDARDS COACH Work Phone: [facility] 12-27-2022 08:48-0400 Body weight 92.31 kg Sade Beckman FINANCIAL AID COORDINATOR.SCHOOL STANDARDS COACH Work Phone: [facility] 12-27-2022 08:48-0400 SaO2% (BldA) [Mass fraction] 96 % Sade Beckman APRN.SCHOOL STANDARDS COACH Work Phone: [facility] 11-24-2022 09:22-0500 Body temperature 98.01 [degF] NA Wu PA-C Work Phone: [facility] 11-24-2022 09:22-0500 Body weight 89.81 kg NA Wu PA-C Work Phone: [facility] 11-24-2022 09:22-0500 Diastolic blood pressure 66 mm[Hg] NA Wu PA-C Work Phone: [facility] 11-24-2022 09:22-0500 Heart rate 63 /min NA Wu PA-C Work Phone: [facility] 11-24-2022 09:22-0500 Respiratory rate 16 /min NA Wu PA-C Work Phone: [facility] 11-24-2022 09:22-0500 SaO2% (BldA) [Mass fraction] 97 % NA Wu PA-C Work Phone: [facility] 11-24-2022 09:22-0500 Systolic blood pressure 124 mm[Hg] NA Wu PA-C Work Phone: [facility] 10-18-2022 08:49-0500 Body height 180.3 cm Margie [place] PA-C Work Phone: [facility] 10-18-2022 08:49-0500 Body temperature 97.59 [degF] Margie [place] PA-C Work Phone: [facility] 10-18-2022 08:49-0500 Body weight 90.27 kg Margie [place] PA-C Work Phone: [facility] 10-18-2022 08:49-0500 Diastolic blood pressure 70 mm[Hg] Margie Liz PA-C Work Phone: [facility] 10-18-2022 08:49-0500 Heart rate 72 /min Margie [place] PA-C Work Phone: [facility] 10-18-2022 08:49-0500 SaO2% (BldA) [Mass fraction] 96 % Margie [place] PA-C Work Phone: [facility] 10-18-2022 08:49-0500 Systolic blood pressure 108 mm[Hg] Margie Liz PA-C Work Phone: [facility] 09-28-2022 14:30-0500 Body height 180.3 cm Shelbi Ruth MD Work Phone: [facility] 09-28-2022 14:30-0500 Body temperature 97.59 [degF] Shelbi Ruth MD Work Phone: [facility] 09-28-2022 14:30-0500 Body weight 90.27 kg Shelbi Ruth MD Work Phone: [facility] 09-28-2022 14:30-0500 Diastolic blood pressure 62 mm[Hg] Shelbi Ruth MD Work Phone: [facility] 09-28-2022 14:30-0500 Heart rate 67 /min Shelbi Ruth MD Work Phone: [facility] 09-28-2022 14:30-0500 SaO2% (BldA) [Mass fraction] 97 % Shelbi Ruth MD Work Phone: [facility] 09-28-2022 14:30-0500 Systolic blood pressure 124 mm[Hg] Shelbi Ruth MD Work Phone: [facility] 08-15-2022 08:37-0400 Body weight 92.53 kg NA Wu PA-C Work Phone: [facility] 08-15-2022 08:37-0400 Diastolic blood pressure 64 mm[Hg] NA Wu PA-C Work Phone: [facility] 08-15-2022 08:37-0400 Heart rate 60 /min NA Wu PA-C Work Phone: [facility] 08-15-2022 08:37-0400 Respiratory rate 16 /min NA Wu PA-C Work Phone: [facility] 08-15-2022 08:37-0400 SaO2% (BldA) [Mass fraction] 97 % NA Wu PA-C Work Phone: [facility] 08-15-2022 08:37-0400 Systolic blood pressure 122 mm[Hg] NA Wu PA-C Work Phone: [facility] 04-26-2022 14:50-0400 Body temperature 99.61 [degF] Kim Athy PA-C Work Phone: [facility] 04-26-2022 14:50-0400 Diastolic blood pressure 66 mm[Hg] Kim Athy PA-C Work Phone: [facility] 04-26-2022 14:50-0400 Heart rate 70 /min Kim Athy PA-C Work Phone: [facility] 04-26-2022 14:50-0400 Respiratory rate 16 /min Kim Athy PA-C Work Phone: [facility] 04-26-2022 14:50-0400 SaO2% (BldA) [Mass fraction] 95 % Kim Athy PA-C Work Phone: [facility] 04-26-2022 14:50-0400 Systolic blood pressure 118 mm[Hg] Kim Athy PA-C Work Phone: [facility] 02-11-2022 08:04-0400 SaO2% (BldA) [Mass fraction] 96 % Sade Beckman APRN.SCHOOL STANDARDS COACH Work Phone: [facility] 02-11-2022 07:59-0400 Body height 180.3 cm Sade Beckman APRN.SCHOOL STANDARDS COACH Work Phone: [facility] 02-11-2022 07:59-0400 Body weight 94.8 kg Sade Beckman APRN.SCHOOL STANDARDS COACH Work Phone: [facility] 02-09-2022 08:08-0400 Body height 178 cm Sydney Julien MD Work Phone: [facility] 02-09-2022 08:08-0400 Body weight 96.16 kg Sydney Julien MD Work Phone: [facility] 02-09-2022 08:08-0400 Diastolic blood pressure 70 mm[Hg] Sydney Julien MD Work Phone: [facility] 02-09-2022 08:08-0400 Heart rate 68 /min Sydney Julien MD Work Phone: [facility] 02-09-2022 08:08-0400 Respiratory rate 16 /min Sydney Julien MD Work Phone: [facility] 02-09-2022 08:08-0400 Systolic blood pressure 128 mm[Hg] Sydney Julien MD Work Phone: [facility] Encounters Encounter Date Encounter Type Care Provider Facility Start: 09-14-2023 Telephone encounter Sydney Julien MD Work Phone: [facility] Procedures Date Procedure Procedure Detail Performing Clinician Start: 02-14-2023 Lipid 1996 panel - Serum or Plasma Sydney Julien MD Work Phone: Start: 02-11-2021 Adult depression screening assessment Edel Pugh MA History of cholecystectomy Status post laparoscopic cholecystectomy Shelbi Ruth MD Work Phone: Plan of Treatment Date Care Activity Detail Author Start: 02-15-2028 Lipid 1996 panel - S grisel or Plasma Lipid Screening [facility] Start: 02-15-2028 LIPID SCREEN LIPID SCREEN [facility] Start: 02-09-2027 LIPID SCREEN LIPID SCREEN [facility] Start: 05-06-2026 LIPID SCREEN LIPID SCREEN [facility] Start: 02-14-2026 DIABETES SCREEN DIABETES SCREEN [facility] Start: 02-14-2026 Diabetes Screening Diabetes Screenin g [facility] Start: 08-15-2025 DIABETES SCREEN DIABETES SCREEN [facility] Start: 02-09-2025 DIABETES SCREEN DIABETES SCREEN [facility] Start: 05-06-2024 DIABETES SCREEN DIABETES SCREEN [facility] Start: 04-04-2024 ANNUAL PCP TEAM ERECTOR OPERATOR JAVI DISEASE VISIT ANNUAL PCP TEAM CHRONIC DISEASE VISIT [facility] Start: 04-04-2024 BP CONTROLLED (<130/80) BP CONTROLLE D (<130/80) [facility] Start: 02-15-2024 ANNUAL PCP TEAM ERECTOR OPERATOR JAVI DISEASE VISIT ANNUAL PCP TEAM CHRONIC DISEASE VISIT [facility] Start: 02-15-2024 BP CONTROLLED (<130/80) BP CONTROLLE D (<130/80) [facility] Start: 11-24-2023 ANNUAL PCP TEAM ERECTOR OPERATOR JAVI DISEASE VISIT ANNUAL PCP TEAM CHRONIC DISEASE VISIT [facility] Start: 11-24-2023 BP CONTROLLED (<130/80) BP CONTROLLE D (<130/80) [facility] Start: 10-18-2023 BP CONTROLLED (<130/80) BP CONTROLLE D (<130/80) [facility] Start: 09-28-2023 BP CONTROLLED (<130/80) BP CONTROLLE D (<130/80) [facility] Start: 08-15-2023 ANNUAL PCP TEAM ERECTOR OPERATOR JAVI DISEASE VISIT ANNUAL PCP TEAM CHRONIC DISEASE VISIT [facility] Start: 08-15-2023 BP CONTROLLED (<130/80) BP CONTROLLE D (<130/80) [facility] Start: 08-15-2023 COVID-19 VACCINE (#1) COVID-19 VACCI NE (#1) [facility] Immunizations Immunization Date Immunization Notes Care Provider Fa cility 08-09-2018 influenza virus vacc ine, unspecified formulation Sydney Julien MD Work Phone: [facility] 05-25-2017 pneumococcal polysaccharide vaccine, 23 valent Edel Pugh MA [facility] 04-07-2016 pneumococcal conjuga te vaccine, 13 valent Edel Pugh MA [facility] Payers Date Payer Category Payer Medicare [id number] 2020 Unknown MMO MMO MEDICARE SUPPLEMENT [id number] 2020-Present [phone] [address] [place] [address] Indemnity [id number] 2020 Unknown MMO MMO MEDICARE SUPPLEMENT [id number] 2020-Present [phone] [address] [place] [address] Indemnity [id number] 2019 Medicare MEDICARE MEDICAR E A AND B [id number] 2019-Present [phone] [place] [address] Medicare [id number] 2019 Medicare MEDICARE MEDICAR E A AND B [id number] 2019-Present [phone] [place] [address] Medicare [id number] 2019 Medicare [id number] Social History Date Type Detail Facility Start: 08-15-2022 Tobacco smoking stat [facility] Never smoked tobacco [facility] Start: 12-08-2021 End: 07-18-2023 Alcohol intake Current non-drinker of alcohol (finding) [facility] Start: 1950 Sex Assigned At Not on file [facility] Start: 11-07-2021 End: 08-15-2022 Exposure to SARS-CoV-2 (event) Not sure [facility] Start: 08-15-2022 Tobacco use and exposure Smokeless tobacco non-user [facility] Start: 10-31-2022 End: 04-04-2023 History of Social function [facility] Work Phone: Start: 10-31-2022 End: 04-04-2023 Tobacco use panel [facility] Work Phone: Adult Depression Screening Assessment 0 [facility] Work Phone: Clinical Notes 12-22-2006 to 09-14-2023 Telephone Encounter - Odalys Marin LPN - 09/14/2023 8:06 AM ESTPatient Sade Hunt APRN.ALIVIA - 07/18/2023 8:00 AM EDTTelephone Encounter - Rabia Zamorano RN - 07/03/2023 10:36 AM EDT Note Date & Type Note Facility 09-14-2023 Miscellaneous Notes [facility] [employer] faxes asking for knee braces and back brace. This is not something that Dr Julien orders. Returned not approved. documented in this encounter [facility] 07-18-2023 Note HNO ID: [id number] Author: Sade Beckman APRN.SCHOOL STANDARDS COACH Service: ? Author Type: Nurse Practitioner Type: Progress Notes Filed: 07/18/2023 9:42 AM Note Text: [facility] - FOLLOW UP EVALUATION Sydney Julien MD [address] [facility] [id number] Dear Sydney Julien MD: I had the pleasure of seeing Mr. Cooper for follow-up today. As you know he is a 73 year old right-handed male with a history of Parkinson's disease since 2019. He is seen alone. Subjective Previous Plan-12/27/2022 Visit: Parkinson's disease: Increase the Sinemet as noted below Let me know if you change your mind and would like to see our occupational therapist Interval History: He is working three days a week now. Everything is the same in regards to his Parkinson's disease. He still has a lot of tremor. If he is relaxed, he has less tremor than when he has been busy. He does not feel that a change in medications is necessary. He also forgets to take it 2-3 times a day on his days off but is better when he is at work with staying on time. Movement Disorders Medications Schedule - as of the start of the visit: Medications 3am 8am 1pm 6pm Sinemet 25/100 1 1 1 1 Parkinson's Motor Complications Medication benefit onset: unclear Medication duration: unclear Wearing off: no Painful off-state dystonia: no Dyskinesia: no Prior Anti-Parkinson Therapies Carbidopa/Levodopa Questionnaires: In addition, the following areas that may be affected by abnormal involuntary movements were evaluated: Daily activities Difficulties with eating: Difficulties in dressing: Difficulties with hygiene activities: 0 (none) Difficulties with handwriting: Yes (moderate) Difficulties with doing hobbies and other activities: 0 (none) Difficulties turning in bed: Difficulties getting out of bed, car or chair: Yes (mild) Tremors/Gait/Balance Shaking or tremors: Yes (slight) Walking and balance problems: 0 (none) Number of falls in the Last Month: 0 Gait freezin (none) Autonomic/Pain Lightheadeness on standin (none) Urinary problems: Yes (slight) Constipation problems: A little and uses a stool softener or laxative. Pain and other sensations: Yes (mild) Speech/Swallowing Speech problems: 0 (none) Drooling: a little Chewing and swallowing problems: No difficulty swallowing but sometimes chewing due to teeth loss. Sleep/Fatigue Sleep problems: No Daytime sleepiness: Unplanned naps while watching TV Fatigue: Maybe sometimes Mood/Behavior Depression: Sometimes a teeny bit. Anxiety: He typically does not get anxious. Finally, the following table shows the patient's overall global physical and mental health using the PROMIS scale: PROMIS-10 Flowsheet Row Office Visit from 12/27/2022 in Neurology Office Visit from 02/11/2021 in Neurology Global Physical Health T Score 54.1 54.1 Global Mental Health T Score 53.3 53.3 0-10 Standard Pain Scale 5 5 *PROMIS-10 scoring scale: mean = 50, over 50 is above average, under 50 is below average In addition, the following non-motor symptoms and palliative concerns were evaluated: Sleep/Fatigue: REM sleep behavior disorder: Rarely Restless Legs Syndrome: No Leg swelling: No Impaired sense of smell: No Cognition: Cognitive impairment: He sometimes has trouble remembering something but will remember with time. MoCA Cognitive assessment: Hallucinations and delusions: no Apathy: occasionally Impulse control disorder: He said he buys a lot of radios (hobby) but said he has for a while and thinks he is making up for not having a lot as a kid. Palliative Concerns: Caregiver burden: Spiritual concerns: No Advanced directives on file: No Palliative services: No Therapy and Exercise: Last PT Date: Last OT Date: ST Date: Exercises Regularly: He is active at work and in the summer he is more active but he does not do structured exercise. ALLERGIES No Known Allergies Current Outpatient Medications Medication Sig levothyroxine (SYNTHROID) 50 mcg tablet Take 1 tablet by mouth once daily. Take on empty stomach. For Thyroid. amLODIPine (NORVASC) 10 mg tablet Take 1 tablet by mouth once daily. triamterene-hydroCHLOROthiazide (MAXZIDE) 75-50 mg per tablet Take 1 tablet by mouth once daily. atenolol (TENORMIN) 25 mg tablet Take 1 tablet by mouth once daily. aspirin, enteric coated (ADULT LOW DOSE ASPIRIN) 81 mg EC tablet Take 1 tablet by mouth once daily. carbidopa-levodopa (SINEMET 25-100) 25-100 mg per tablet Take 1 tablet by mouth four times daily. No current facility-administered medications for this visit. Objective Vital Signs: Ht 180.3 cm (5' 11 ) Wt 88.3 kg (194 lb 9.6 oz) SpO2 96% BMI 27.14 kg/m? Orthostatic Vitals: Sitting: BP 130/58 Pulse 57 Standing: BP 105/62 Pulse 65 No LMP for male patient. Body mass index is 27.14 kg/m?. Movement Disorders Scales Perfo (more content not included)... [facility] 07-18-2023 Instructions Sade Beckman APRN.ALIVIA - 07/18/2023 8:35 AM EDT It was a pleasure to see you today. We addressed the following diagnoses: Parkinson's disease without dyskinesia or fluctuating manifestations (primary encounter diagnosis) My recommendations are as follows: 07/18/2023 Visit: Parkinson's disease: Continue current medication schedule consistently take it on time Continue your hobbies and keeping your hands and mind busy Constipation: Try using Miralax daily. Blood pressure: Your blood pressure dropped today. This may be related to not drinking a lot this morning as we do not typically see this with you but it could be related to your Parkinson's disease or to your blood pressure medications so please let Dr. Julien know. He will also want to know if you start feeling dizzy or lightheaded when you stand. Please make sure you are changing positions slowly and drinking plenty of water. Movement Disorders Medication Schedule: Medications 3am 8am 1pm 6pm Sinemet 25/100 1 1 1 1 Return in about 6 months (around 01/17/2024). If there are any concerns before your next visit, please call or you can send a message through [employer]. You can also now schedule and select appointments through [employer]. Sade Beckman APRN.SCHOOL STANDARDS COACH documented in this encounter [facility] [facility] 07-18-2023 History of Presen t illness Narrative [facility] - FOLLOW UP EVALUATION Sydney Julien MD [id number] [place] [address] Dear Sydney Julien MD: I had the pleasure of seeing Mr. Cooper for follow-up today. As you know he is a 73 year old right-handed male with a history of Parkinson's disease since 2019. He is seen alone. Subjective Previous Plan-12/27/2022 Visit: Parkinson's disease: Increase the Sinemet as noted below Let me know if you change your mind and would like to see our occupational therapist Interval History: He is working three days a week now. Everything is the same in regards to his Parkinson's disease. He still has a lot of tremor. If he is relaxed, he has less tremor than when he has been busy. He does not feel that a change in medications is necessary. He also forgets to take it 2-3 times a day on his days off but is better when he is at work with staying on time. Movement Disorders Medications Schedule - as of the start of the visit: Medications 3am 8am 1pm 6pm Sinemet 25/100 1 1 1 1 Parkinson's Motor Complications Medication benefit onset: unclear Medication duration: unclear Wearing off: no Painful off-state dystonia: no Dyskinesia: no Prior Anti-Parkinson Therapies Carbidopa/Levodopa Questionnaires: In addition, the following areas that may be affected by abnormal involuntary movements were evaluated: Daily activities Difficulties with eating: Difficulties in dressing: Difficulties with hygiene activities: 0 (none) Difficulties with handwriting: Yes (moderate) Difficulties with doing hobbies and other activities: 0 (none) Difficulties turning in bed: Difficulties getting out of bed, car or chair: Yes (mild) Tremors/Gait/Balance Shaking or tremors: Yes (slight) Walking and balance problems: 0 (none) Number of falls in the Last Month: 0 Gait freezin (none) Autonomic/Pain Lightheadeness on standin (none) Urinary problems: Yes (slight) Constipation problems: A little and uses a stool softener or laxative. Pain and other sensations: Yes (mild) Speech/Swallowing Speech problems: 0 (none) Drooling: a little Chewing and swallowing problems: No difficulty swallowing but sometimes chewing due to teeth loss. Sleep/Fatigue Sleep problems: No Daytime sleepiness: Unplanned naps while watching TV Fatigue: Maybe sometimes Mood/Behavior Depression: Sometimes a teeny bit. Anxiety: He typically does not get anxious. Finally, the following table shows the patient's overall global physical and mental health using the PROMIS scale: PROMIS-10 Flowsheet Row Office Visit from 12/27/2022 in Neurology Office Visit from 02/11/2021 in Neurology Global Physical Health T Score 54.1 54.1 Global Mental Health T Score 53.3 53.3 0-10 Standard Pain Scale 5 5 *PROMIS-10 scoring scale: mean = 50, over 50 is above average, under 50 is below average In addition, the following non-motor symptoms and palliative concerns were evaluated: Sleep/Fatigue: REM sleep behavior disorder: Rarely Restless Legs Syndrome: No Leg swelling: No Impaired sense of smell: No Cognition: Cognitive impairment: He sometimes has trouble remembering something but will remember with time. MoCA Cognitive assessment: Hallucinations and delusions: no Apathy: occasionally Impulse control disorder: He said he buys a lot of radios (hobby) but said he has for a while and thinks he is making up for not having a lot as a kid. Palliative Concerns: Caregiver burden: Spiritual concerns: No Advanced directives on file: No Palliative services: No Therapy and Exercise: Last PT Date: Last OT Date: Last ST Date: Exercises Regularly: He is active at work and in the summer he is more active but he does not do structured exercise. ALLERGIES No Known Allergies Current Outpatient Medications Medication Sig levothyroxine (SYNTHROID) 50 mcg tablet Take 1 tablet by mouth once daily. Take on empty stomach. For Thyroid. amLODIPine (NORVASC) 10 mg tablet Take 1 tablet by mouth once daily. triamterene-hydroCHLOROthiazide (MAXZIDE) 75-50 mg per tablet Take 1 tablet by mouth once daily. atenolol (TENORMIN) 25 mg tablet Take 1 tablet by mouth once daily. aspirin, enteric coated (ADULT LOW DOSE ASPIRIN) 81 mg EC tablet Take 1 tablet by mouth once daily. carbidopa-levodopa (SINEMET 25-100) 25-100 mg per tablet Take 1 tablet by mouth four times daily. No current facility-administered medications for this visit. Objective Vital Signs: Ht 180.3 cm (5' 11 ) Wt 88.3 kg (194 lb 9.6 oz) SpO2 96% BMI 27.14 kg/m Orthostatic Vitals: Sitting: BP 130/58 Pulse 57 Standing: BP 105/62 Pulse 65 No LMP for male patient. Body mass index is 27.14 kg/m . Movement Disorders Scales Performed: MDS-UPDRS Motor subscale condition of exam Medication Off/On/Naiive ON Time of UPDRS 0822 Time of Last Medication 0400 Last Medication Taken DBS Right N/A DBS Left N/A MDS-UPDRS Motor subscale scores Speech 2-Mild. Loss of modulation, diction, or volume, with a few words unclear, but the overall sentences easy to follow. Facial Expression 1-Slight. Minimal masked facies manifested only by decreased frequency of blinking. Finger Taps Right 2-Mild. a) 3 to 5 interruptions during tapping, b) mild slowing, c) the amplitude decrements midway in the 10-tap sequence. Finger Taps Left 2-Mild. a) 3 to 5 interruptions during tapping, b) mild slowing, c) the amplitude decrements midway in the 10-tap sequence. Hand Movements Right 2-Mild. a) 3 to 5 interruptions during the movements, b) mild slowing, c) the amplitude decrements midway in the task. Hand Movements Left 1-Slight. a) the regular rhythm is broken with one or two interruptions or hesitations of the movement, b) slight slowing, c) the amplitude decrements near the end of the task. Arm Movements Right 2-Mild. a) 3 to 5 interruptions during the movements, b) mild slowing, c) the amplitude decrements midway in the sequence. Arm Movements Left 2-Mild. a) 3 to 5 interruptions during the movements, b) mild slowing, c) the amplitude decrements midway in the sequence. Toe Taps Right 1-Slight. a) the regular rhythm is broken with one or two interruptions or hesitations of the tapping movement, b) slight slowing, c) the amplitude decrements near the end of the ten taps. Toe Taps Left 2-Mild. a) 3 to 5 interruptions during the tapping movements, b) mild slowing, c) the amplitude decrements midway in the task. Leg Agility Right 1-Slight. a) the regular rhythm is broken with one or two interruptions or hesitations of the movement, b) slight slowing, c) the amplitude decrements near the end of the task. Leg Agility Left 1-Slight. a) the regular rhythm is broken with one or two interruptions or hesitations of the movement, b) slight slowing, c) the amplitude decrements near the end of the task. Arise From Chair 0-Normal. No problems. Able to arise quickly without hesitation. Gait 1-Slight. Independent walking with minor gait impairment. Gait Freezing 0-Normal. No freezing. Posture Stability Posture 2-Mild. Definite flexion, scoliosis or leaning to one side, but patient can correct posture to normal posture when asked to do so. Body Bradykinesia 1-Slight. Slight global slowness and poverty of spontaneous movements. Postural Tremor Hand Right 0-Normal. No tremor. Postural Tremor Hand Left 0-Normal. No tremor. Kinetic Tremor Right 0-Normal. No tremor. Kinetic Tremor Left 0-Normal. No tremor. Rest Tremor Amplitude Right Upper Extremity 2-Mild. > 1 cm but < 3 cm in maximal amplitude. Rest Tremor Amplitude Left Upper Extremity 1-Slight. < 1 cm in maximal amplitude. Rest Tremor Amplitude Right Lower Extremity 0-Normal. No tremor. Rest Tremor Amplitude Left Lower Extremity 0-Normal. No tremor. Rest Tremor Amplitude Lip/Jaw 0-Normal. No tremor. Rest Tremor Constancy 4-Severe. Tremor at rest is present > 75% of the entire examination period. Pertinent Studies 05/01/18 Brain MRI Impression: No acute intracranial findings. No intracranial mass or pathologic enhancement. Mild parenchymal volume loss and mild sequela of chronic microvascular ischemia. Assessment and Plan: Assessment Mr. Cooper is a right-handed 73 year old year old male with Parkinson's disease since 2019. He continues to have significant tremor but does not feel it is necessary to change his medications. I agree as he is having trouble taking his medications consistently on time as it is as he gets really busy and does not take them. He had been worried about remembering at work but this is when he is actually better at taking them so we discussed trying to set a timer at home to help him remember but he indicated he does not have the ability to do this so will work harder on trying to remember when he is busy to stop and take them. The following are the current problems noted and addressed during this visit: Parkinson's disease without dyskinesia or fluctuating manifestations (primary encounter diagnosis) Plan 07/18/2023 Visit: Parkinson's disease: Continue current medication schedule consistently take it on time Continue your hobbies and keeping your hands and mind busy Constipation: Try using Miralax daily. Blood pressure: Your blood pressure dropped today. This may be related to not drinking a lot this morning as we do not typically see this with you but it could be related to your Parkinson's disease or to your blood pressure medications so please let Dr. Julien know. He will also want to know if you start feeling dizzy or lightheaded when you stand. Please make sure you are changing positions slowly and drinking plenty of water. Updated Movement Disorders Medication Schedule: Medications 3am 8am 1pm 6pm Sinemet 25/100 1 1 1 1 Level of service : 86998 ( 30-39 min). Time spent 32 min on the day of service, which included preparing to see the patient, [id number] patient care, completing clinical documentation, obtaining and/or reviewing separately obtained history, performing a medically appropriate examination, and counseling and educating the patient/family/caregiver. Sade Beckman APRN.SCHOOL STANDARDS COACH documented in this encounter [facility] 07-03-2023 Miscellaneous Notes Patient calling to request three refills as pended below. Thank you. Requested Prescriptions Pending Prescriptions Disp Refills levothyroxine (SYNTHROID) 50 mcg tablet 90 tablet 3 Sig: Take 1 tablet by mouth once daily. Take on empty stomach. For Thyroid. amLODIPine (NORVASC) 10 mg tablet 90 tablet 3 Sig: Take 1 tablet by mouth once daily. triamterene-hydroCHLOROthiazide (MAXZIDE) 75-50 mg per tablet 90 tablet 1 Sig: Take 1 tablet by mouth once daily. Last encounter with this provider: 04/04/2023 Next appt: not scheduled Last 1 Encounter BP Readings: Date: BP: 04/04/2023 112/70 WBC (k/uL) Date Value 02/14/2023 8.29 Hemoglobin (g/dL) Date Value 02/14/2023 15.6 Platelet Count (k/uL) Date Value 02/14/2023 220 Glucose (mg/dL) Date Value 02/14/2023 93 BUN (mg/dL) Date Value 02/14/2023 21 Creatinine (mg/dL) Date Value 02/14/2023 1.17 Sodium (mmol/L) Date Value 02/14/2023 138 Potassium (mmol/L) Date Value 02/14/2023 4.0 Calcium, Total (mg/dL) Date Value 02/14/2023 10.0 Alkaline Phosphatase (U/L) Date Value 02/14/2023 92 Bilirubin, Total (mg/dL) Date Value 02/14/2023 0.6 AST (U/L) Date Value 02/14/2023 23 ALT (U/L) Date Value 02/14/2023 6 (L) Cholesterol, Total (mg/dL) Date Value 02/14/2023 163 Triglyceride (mg/dL) Date Value 02/14/2023 138 TSH (mIU/L) Date Value 02/14/2023 3.620 Rabia Zamorano RN documented in this encounter [facility] 04-21-2023 Miscellaneous Notes Form faxed. Jose Ramon Christie LPN Form completed as able. Manuela Pham APRN.ALIVIA Partially completed [employer] forms received via fax. Placed on provider desk for further review. Jose Ramon Christie LPN Will need to wait until Monday when provider is back Mary- [facility] Workmens Comp, asking office to return her call. Reports she needs ov notes, [employer] form and off work slip, faxed to her at # [phone]. Please advise and phone Mary with reply. Message was sent to [facility]. I wasn't aware this was a workman's comp claim. Patient seen Manuela Pham for a workers comp issues 04/04/23. Mary from [facility] called. They manage medical WC claims. She provided a claim # of [id number]. She is asking for a copy of the [employer] and office notes. She also is asking who would be her service advocate contact for any questions. documented in this encounter [facility] 04-04-2023 Note HNO ID: [id number] Author: Manuela Pham APRN.ALIVIA Service: ? Author Type: Nurse Practitioner Type: Progress Notes Filed: 04/21/2023 1:15 PM Note Text: This is a 72 year old male who presents today with: Patient presents with: ER F/U: [facility] ER 03/29 dx:fall, R arm pain HISTORY OF PRESENT ILLNESS: Traci Mumtaz Cooper Jr. is a 72 year old male. Patient presents with: ER F/U: [facility] ER 03/29 dx:fall, R arm pain Pt presents today for ER follow-up. Refers that about a week ago, he had a fall. Refers he tripped over part of a machine he was working on. Fell onto a concrete floor and landed on his right side. Went to the ER on 03/29. Had xray of the right humerus. Refers that they did give him some ibuprofen, but didn't seem to do too much. Refers that symptoms were improving, but did some mowing yesterday, which seemed to exacerbate some of his symptoms. Reports limited ROM of the right shoulder. PAST MEDICAL HISTORY: PAST MEDICAL HISTORY Diagnosis Date Calculus of gallbladder without cholecystitis without obstruction 11/30/2017 Gallbladder polyp 11/30/2017 Patient declines follow up. Aware of risks of not diagnosing a gall bladder malignancy Gout History of TIAs 2006 negative workup. bp etiology Hypertension Parkinson's disease (HCC) Personal history of kidney stones 2005 PAST SURGICAL HISTORY Procedure Laterality Date L'SCOPE CHOLECYSTECTOMY 09/25/2022 ALLERGIES Patient has no known allergies. MEDICATIONS Current Outpatient Medications Medication Sig carbidopa-levodopa (SINEMET 25-100) 25-100 mg per tablet Take 1 tablet by mouth four times daily. triamterene-hydroCHLOROthiazide (MAXZIDE) 75-50 mg per tablet Take 1 tablet by mouth once daily. amLODIPine (NORVASC) 10 mg tablet Take 1 tablet by mouth once daily. atenolol (TENORMIN) 25 mg tablet Take 1 tablet by mouth once daily. aspirin, enteric coated (ADULT LOW DOSE ASPIRIN) 81 mg EC tablet Take 1 tablet by mouth once daily. levothyroxine (SYNTHROID) 50 mcg tablet Take 1 tablet by mouth once daily. Take on empty stomach. For Thyroid. No current facility-administered medications for this visit. FAMILY HISTORY Problem Relation Age of Onset Ischemic Heart Disease Mother 60 other (rheumatoid arthritis) Mother Social History Tobacco Use Smoking status: Never Smokeless tobacco: Never Vaping Use Vaping Use: Never used Substance Use Topics Alcohol use: No Drug use: No EXAM: BP 112/70 Pulse (!) 57 Resp 16 SpO2 96% PHYSICAL EXAM: General Appearance: Well appearing, alert, in no acute distress, well-hydrated, well nourished.. Skin: Skin color, texture, turgor normal, no suspicious rashes or lesions. Head: Normocephalic, no masses, lesions, tenderness or abnormalities. Eyes: Anicteric sclera. Extraocular movements are intact. . Lungs: Lungs clear to auscultation. No wheezing, rhonchi, rales.. Heart: RRR without murmur, gallop, or rubs. No ectopy. Extremities: No deformities, edema, skin discoloration, clubbing or cyanosis. Good capillary refill. . Neurologic: Gait normal. + tremors of upper extremities. Shoulder : Location: right shoulder Redness: no. Does have some yellowish bruising in the tricep area. Warmth: no Tenderness to palpation: + Swelling: no Range of motion: unable to abduct/flex arm above 90 degrees. Empty can test: difficult to assess, as patient unable to raise arm and parkinson's tremors. .ASSESSMENT/PLAN: 1. Acute pain of right shoulder - ICD9: 719.41, ICD10: M25.511 Symptoms were improving until yesterday after mowing. He reports that he was taking ibuprofen, which was not helpful for He reports he is taken prednisone past and tolerated well. Requests prednisone to help with his discomfort. We will go ahead and start a taper. Declined imaging at this time. Went to first assess response to prednisone. Work note given. Discussed shoulder exercises. Discussed ice to shoulder. Discussed treatment plan and patient voices understanding. Patient's questions answered appropriately. Medications and potential side effects were discussed and patient voices understanding. Return to the office as scheduled or as needed for worsening/no improvement. Manuela Pham APRN.CNP [facility] 04-04-2023 Instructions Manuela Pham APRN.CNP - 04/04/2023 10:56 AM EDT Start the prednisone taper. The prednisone taper will be 4 tablets for 3 days; 3 tablets for 3 days; 2 tablets for 3 days; then 1 tablet for 3 days. Please do no use other anti-inflammatories (like ibuprofen, aleve, naproxen, etc) while you are on this medication. 2. Ice the shoulder. 3. Shoulder exercises. 4. Topicals (ie maria e hu, icy hot, biofreeze) 5. Let us know if no better/worsening. documented in this encounter [facility] 04-04-2023 History of Presen t illness Narrative This is a 72 year old male who presents today with: Patient presents with: ER F/U: [facility] ER 03/29 dx:fall, R arm pain HISTORY OF PRESENT ILLNESS: Traci Cooper Jr. is a 72 year old male. Patient presents with: ER F/U: [facility] ER 03/29 dx:fall, R arm pain Pt presents today for ER follow-up. Refers that about a week ago, he had a fall. Refers he tripped over part of a machine he was working on. Fell onto a concrete floor and landed on his right side. Went to the ER on 03/29. Had xray of the right humerus. Refers that they did give him some ibuprofen, but didn't seem to do too much. Refers that symptoms were improving, but did some mowing yesterday, which seemed to exacerbate some of his symptoms. Reports limited ROM of the right shoulder. PAST MEDICAL HISTORY: PAST MEDICAL HISTORY Diagnosis Date Calculus of gallbladder without cholecystitis without obstruction 11/30/2017 Gallbladder polyp 11/30/2017 Patient declines follow up. Aware of risks of not diagnosing a gall bladder malignancy Gout History of TIAs 2006 negative workup. bp etiology Hypertension Parkinson's disease (HCC) Personal history of kidney stones 2005 PAST SURGICAL HISTORY Procedure Laterality Date L'SCOPE CHOLECYSTECTOMY 09/25/2022 ALLERGIES Patient has no known allergies. MEDICATIONS Current Outpatient Medications Medication Sig carbidopa-levodopa (SINEMET 25-100) 25-100 mg per tablet Take 1 tablet by mouth four times daily. triamterene-hydroCHLOROthiazide (MAXZIDE) 75-50 mg per tablet Take 1 tablet by mouth once daily. amLODIPine (NORVASC) 10 mg tablet Take 1 tablet by mouth once daily. atenolol (TENORMIN) 25 mg tablet Take 1 tablet by mouth once daily. aspirin, enteric coated (ADULT LOW DOSE ASPIRIN) 81 mg EC tablet Take 1 tablet by mouth once daily. levothyroxine (SYNTHROID) 50 mcg tablet Take 1 tablet by mouth once daily. Take on empty stomach. For Thyroid. No current facility-administered medications for this visit. FAMILY HISTORY Problem Relation Age of Onset Ischemic Heart Disease Mother 60 other (rheumatoid arthritis) Mother Social History Tobacco Use Smoking status: Never Smokeless tobacco: Never Vaping Use Vaping Use: Never used Substance Use Topics Alcohol use: No Drug use: No EXAM: BP 112/70 Pulse (!) 57 Resp 16 SpO2 96% PHYSICAL EXAM: General Appearance: Well appearing, alert, in no acute distress, well-hydrated, well nourished.. Skin: Skin color, texture, turgor normal, no suspicious rashes or lesions. Head: Normocephalic, no masses, lesions, tenderness or abnormalities. Eyes: Anicteric sclera. Extraocular movements are intact. . Lungs: Lungs clear to auscultation. No wheezing, rhonchi, rales.. Heart: RRR without murmur, gallop, or rubs. No ectopy. Extremities: No deformities, edema, skin discoloration, clubbing or cyanosis. Good capillary refill. . Neurologic: Gait normal. + tremors of upper extremities. Shoulder : Location: right shoulder Redness: no. Does have some yellowish bruising in the tricep area. Warmth: no Tenderness to palpation: + Swelling: no Range of motion: unable to abduct/flex arm above 90 degrees. Empty can test: difficult to assess, as patient unable to raise arm and parkinson's tremors. .ASSESSMENT/PLAN: 1. Acute pain of right shoulder - ICD9: 719.41, ICD10: M25.511 Symptoms were improving until yesterday after mowing. He reports that he was taking bupropion, which was not helpful for He reports he is taken prednisone past and tolerated well. Requests prednisone to help with his discomfort. We will go ahead and start a taper. Declined imaging at this time. Went to first assess response to prednisone. Work note given. Discussed shoulder exercises. Discussed ice to shoulder. Discussed treatment plan and patient voices understanding. Patient's questions answered appropriately. Medications and potential side effects were discussed and patient voices understanding. Return to the office as scheduled or as needed for worsening/no improvement. Manuela Pham APRN.SCHOOL STANDARDS COACH documented in this encounter [facility] 03-27-2023 Note Patient Outreach (KAITY HAMM) TRACI COOPER JR. ([id number]) 1950 M Date Time Provider Department 03/27/23 EDEL PUGH During your visit today, we recorded the following information about you: Edel Pugh MA 03/27/2023 1:12 PM Signed POPULATION HEALTH NAVIGATION OUTREACH Action/FYI LVM NO MYCHART MESSAGE FOLLOW UP 6 MONTH COLORECTAL CANCER SCREENING due around 08-17-23 MYCHART ACTIVATION Patient Identified by Name and : NO Outreach Outcome/Action Unable to reach patient: Left message Did you use a PCP flex slot to schedule this appointment? No Reason for Outreach Care Gap or Scheduling/Wellness visits Payer: Payor: MEDICARE / Plan: MEDICARE A AND B / Product Type: Medicare / Care Gap Reviewed:: Annual Wellness visit Colorectal Cancer Screening Reminder: Reminder note to check Health Maintenance for items below Health Maintenance items due: COLORECTAL CANCER SCREENING due on 11/30/2018 Navigation Signature: Edel Pugh MA March 27, 2023 9:42 AM Allergies As of Date: 03/27/2023 (No Known Allergies) Date Reviewed: 02/14/2023 Reviewed by: Malgorzata Benjamin Ma - Fully Assessed Reason for Visit: Population Health Navigation Outreach [3910] Cmt: [facility]CO [place] PCSA Prescriptions as of 03/27/2023 - carbidopa-levodopa (SINEMET 25-100) 25-100 mg per tablet Take 1 tablet by mouth four times daily. - triamterene-hydroCHLOROthiazide (MAXZIDE) 75-50 mg per tablet Take 1 tablet by mouth once daily. - amLODIPine (NORVASC) 10 mg tablet Take 1 tablet by mouth once daily. - atenolol (TENORMIN) 25 mg tablet Take 1 tablet by mouth once daily. - aspirin, enteric coated (ADULT LOW DOSE ASPIRIN) 81 mg EC tablet Take 1 tablet by mouth once daily. - levothyroxine (SYNTHROID) 50 mcg tablet Take 1 tablet by mouth once daily. Take on empty stomach. For Thyroid. Problem List As Of Date 03/27/2023 Noted Resolved BENIGN HYPERTENSION [I10] 12/22/2006 11/05/2007 TRANSIENT CEREBRAL ISCHEMIA NOS [G45.9] 12/22/2006 Hyperlipemia [E78.5] 04/23/2007 CALCULUS OF KIDNEY [N20.0] 06/08/2007 Essential hypertension [I10] 11/05/2007 Gout with manifestations [M10.9] 10/19/2016 Calculus of gallbladder without cholecystitis w*11/30/2017 02/14/2023 Gallbladder polyp [K82.4] 11/30/2017 02/14/2023 Fatty liver [K76.0] 11/30/2017 Posterior vitreous detachment of left eye [H43.*01/02/2018 Vitreous floaters of both eyes [H43.393] 01/02/2018 Parkinson's disease (HCC) [G20] 08/21/2019 Anxiety [F41.9] 08/21/2019 Restless legs syndrome [G25.81] 08/21/2019 02/11/2022 REM sleep behavior disorder [G47.52] 08/21/2019 Hypothyroidism, acquired [E03.9] 05/06/2021 Bilateral carotid artery stenosis [I65.23] 05/31/2021 Thyroid nodule [E04.1] 07/22/2021 Encounter Status:Closed by EDEL PUGH on 03/27/23 [facility] 03-27-2023 Note HNO ID: [id number] Author: Edel Pugh MA Service: ? Author Type: Tutoring Manager Type: Progress Notes Filed: 03/27/2023 1:12 PM Note Text: POPULATION HEALTH NAVIGATION OUTREACH Action/I LVM NO MYCHART MESSAGE FOLLOW UP 6 MONTH COLORECTAL CANCER SCREENING due around 08-17-23 MYCHART ACTIVATION Patient Identified by Name and : NO Outreach Outcome/Action Unable to reach patient: Left message Did you use a PCP flex slot to schedule this appointment? No Reason for Outreach Care Gap or Scheduling/Wellness visits Payer: Payor: MEDICARE / Plan: MEDICARE A AND B / Product Type: Medicare / Care Gap Reviewed:: Annual Wellness visit Colorectal Cancer Screening Reminder: Reminder note to check Health Maintenance for items below Health Maintenance items due: COLORECTAL CANCER SCREENING due on 11/30/2018 Navigation Signature: Edel Pugh MA March 27, 2023 9:42 AM [facility] 02-27-2023 Note HNO ID: [id number] Author: Deborah Cohara, RDMS Service: ? Author Type: Equipment Technician Type: Progress Notes Filed: 02/27/2023 9:17 AM Note Text: Radiology Service Progress Note PATIENT NAME: Traci Cooper Jr. DATE OF SERVICE: February 27, 2023 TIME: 9:17 AM PATIENT IDENTITY VERIFICATION COMPLETED USING TWO (2) IDENTIFIERS: Name and Date of confirmed by patient verbally. FALL SCREENING: Has the patient had 2 falls in the last year or 1 fall with injury or currently using an Ambulatory Assistive Device (Walker, Cane, Wheelchair, Crutches, etc.)? No PATIENT GENDER DATA: Male PATIENT RELEVANT IMPLANT DATA REVIEWED: Not Applicable RADIOLOGY DEPARTMENT: Ultrasound PERIPHERAL IV DATA: Not applicable SIGNED BY: Deborah Garner RDMS February 27, 2023 9:17 AM [facility] 02-20-2023 Miscellaneous Notes TC to patient who verbalized understanding of providers message and has no questions at this time. MADHAVI Briones Images from the original note were not included. Message left for patient to call PCP office for message below. Rabia Zamorano RN Result Notes Manuela Pham APRN.CNP 02/15/2023 8:59 AM EDT Back to Top Can please let patient know that we received his lab results. Everything looks within normal/stable. Manuela Pham APRN.CNP documented in this encounter [facility] 02-14-2023 Note HNO ID: [id number] Author: Mamadou Wu PA-C Service: ? Author Type: Physician Mechanical Designer Type: Progress Notes Filed: 02/14/2023 11:33 AM Note Text: 72 year old male with c/o here for follow up, no current complaints. Essential hypertension (primary encounter diagnosis) Tia (transient ischemic attack) Hyperlipidemia, unspecified hyperlipidemia type Bilateral carotid artery stenosis Cardiovascular interval hx: 05/31/2021 carotid US: RIGHT: ICA 20-39%, VA patent with antegrade, SCA no significant stenosis LEFT: CCA no significant stenosis, ICA 20-39%, VA patent w/ antegrade 05/06/2021 CT brain without IV contrast: No evidence of intracranial abnormality 05/01/2018: MRI brain with and without IV contrast: No intracranial findings, no intracranial mass or pathologic enhancement, mild parenchymal loss with evidence of chronic microvascular ischemia, comparison 05/01/2018 Current meds: Amlodipine 10mg daily Atenolol 25mg daily Triamterene/HCTZ 75-50mg daily ASA 81mg daily Use of NTG: N/A Chest pain, arm, jaw pain, neck, or upper back pain suggestive of angina: No. SOB: No Dyspnea with exertion: No orthopnea: No Cough : No racing or irregular heartbeats: No palpitations: No syncopal sx: No Headache: No Unexplainable fatigue No. Get kind of tired, working 3 days a week. Leg swelling: No Nausea: No diaphoresis: No Heartburn: No Claudication: No Smoking: No Following Low cholesterol, high fiber diet? No If on statin: muscle aches? No If on statin: GI sx or diarrhea? No Additional history none. Last 3 Encounter BP Readings: Date: BP: 11/24/2022 124/66 10/18/2022 108/70 09/28/2022 124/62 Last 2 Encounter Wt Readings: Date: Wt: 12/27/2022 92.3 kg (203 lb 8 oz) 11/24/2022 89.8 kg (198 lb) Lab review Component Latest Ref Rng AND Units 10/31/2019 02/09/2022 08/15/2022 Protein, Total 6.3 - 8.0 g/dL 7.9 7.8 7.2 Albumin 3.9 - 4.9 g/dL 4.4 4.8 4.8 Calcium 8.5 - 10.2 mg/dL 9.7 10.1 9.9 Bilirubin, Total 0.2 - 1.3 mg/dL 1.6 (H) 0.5 0.6 Alkaline Phosphatase 38 - 113 U/L 65 79 65 AST 14 - 40 U/L 18 27 Glucose 74 - 99 mg/dL 97 94 97 BUN 9 - 24 mg/dL 21 18 24 Creatinine 0.73 - 1.22 mg/dL 1.15 1.00 1.06 Sodium 136 - 144 mmol/L 137 140 140 Potassium 3.7 - 5.1 mmol/L 3.3 (L) 3.8 4.0 Chloride 97 - 105 mmol/L 96 (L) 99 101 CO2 22 - 30 mmol/L 27 30 28 Anion Gap 9 - 18 mmol/L 14 11 11 ALT 10 - 54 U/L 5 (L) 9 (L) 9 (L) eGFR- >60 eGFR-All Other Races . >60 eGFR >=60 mL/min/1.73mA? 79 74 WBC 3.70 - 11.00 k/uL 12.45 (H) 8.80 RBC 4.20 - 6.00 m/uL 5.53 5.81 Hemoglobin 13.0 - 17.0 g/dL 16.0 16.3 Hematocrit 39.0 - 51.0 % 47.3 48.9 MCV 80.0 - 100.0 fL 85.5 84.2 MCH 26.0 - 34.0 pg 28.9 28.1 MCHC 30.5 - 36.0 g/dL 33.8 33.3 RDW-CV 11.5 - 15.0 % 12.4 13.0 Platelet Count 150 - 400 k/uL 253 230 MPV 9.0 - 12.7 fL 11.2 11.2 Absolute nRBC <0.01 k/uL <0.01 <0.01 Cholesterol, Total <200 mg/dL 138 169 Triglyceride <150 mg/dL 49 139 HDL Cholesterol >39 mg/dL 56 44 LDL Cholesterol <100 mg/dL 72 97 Non HDL Cholesterol <130 mg/dL 82 125 Fasting Time hrs 12 12 VLDL Cholesterol <30 mg/dL 10 28 TC:HDL Ratio <5.10 2.46 3.84 LDL:HDL Ratio <2.54 1.29 2.20 Parkinson's disease (hcc) Rem sleep behavior disorder Neurologist: Dr. Sade Beckman Current medications: Carbidopa-levodopa 25-100mg three times a day Persistent tremor right arm/ hand About the same Denies falls in a long time Denies immobility issues Hypothyroidism, acquired Thyroid nodule Current medication: Levothyroxine 50mcg daily AC Taking as directed on an empty stomach? Yes. Thyroid pain: No. Mass effect: No. Change in energy level/ fatigue? 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 Sleep disturbance ?only self induced. Temperature Intolerance: cold No, hot No. In females, menstrual cycle issues? N/a, If yes: Change in bowel habits? No. If yes: Constipation? Yes. If yes: a little, attributes to meds and not drinking water. Back teeth have degenerated. Hasn't been to dentist in a long time. Diarrhea? No. If yes: Weight changes? weight loss intentional. . Memory issues: years ago smoked pot, had memory issues that have persisted, mostly pauses in names which he remembers later: persistent sx. Diaphoresis: No. Numbness, tingling none Radiological imaging with contrast dyes within the last 3 months? No. History of radiation exposure to head or neck area? No. Change in hair or skin? No. If yes: Other symptoms: Last thyroid labs: TSH Date Value 02/09/2022 3.100 mIU/L 05/06/2021 2.360 uU/mL 10/31/2019 2.770 uU/mL ) 07/22/2021 ultrasound thyroid: Nodule 1: Mid to upper right lobe 2.2 x 2.2 x 1.9 cm, solid or nearly solid, hyperechoic, TR 3 with imaging repeat recommended 1, 3 and 5 years Nodule 2: Lower portion right lobe: 1.6 x 2.0 x 1.5 cm, mixed cystic and solid, isoechoi (more content not included)... [facility] 02-14-2023 History of Presen t illness Narrative 72 year old male with c/o here for follow up, no current complaints. Essential hypertension (primary encounter diagnosis) Tia (transient ischemic attack) Hyperlipidemia, unspecified hyperlipidemia type Bilateral carotid artery stenosis Cardiovascular interval hx: 05/31/2021 carotid US: RIGHT: ICA 20-39%, VA patent with antegrade, SCA no significant stenosis LEFT: CCA no significant stenosis, ICA 20-39%, VA patent w/ antegrade 05/06/2021 CT brain without IV contrast: No evidence of intracranial abnormality 05/01/2018: MRI brain with and without IV contrast: No intracranial findings, no intracranial mass or pathologic enhancement, mild parenchymal loss with evidence of chronic microvascular ischemia, comparison 05/01/2018 Current meds: Amlodipine 10mg daily Atenolol 25mg daily Triamterene/HCTZ 75-50mg daily ASA 81mg daily Use of NTG: N/A Chest pain, arm, jaw pain, neck, or upper back pain suggestive of angina: No. SOB: No Dyspnea with exertion: No orthopnea: No Cough : No racing or irregular heartbeats: No palpitations: No syncopal sx: No Headache: No Unexplainable fatigue No. Get kind of tired, working 3 days a week. Leg swelling: No Nausea: No diaphoresis: No Heartburn: No Claudication: No Smoking: No Following Low cholesterol, high fiber diet? No If on statin: muscle aches? No If on statin: GI sx or diarrhea? No Additional history none. Last 3 Encounter BP Readings: Date: BP: 11/24/2022 124/66 10/18/2022 108/70 09/28/2022 124/62 Last 2 Encounter Wt Readings: Date: Wt: 12/27/2022 92.3 kg (203 lb 8 oz) 11/24/2022 89.8 kg (198 lb) Lab review Component Latest Ref Rng & Units 10/31/2019 02/09/2022 08/15/2022 Protein, Total 6.3 - 8.0 g/dL 7.9 7.8 7.2 Albumin 3.9 - 4.9 g/dL 4.4 4.8 4.8 Calcium 8.5 - 10.2 mg/dL 9.7 10.1 9.9 Bilirubin, Total 0.2 - 1.3 mg/dL 1.6 (H) 0.5 0.6 Alkaline Phosphatase 38 - 113 U/L 65 79 65 AST 14 - 40 U/L 18 21 27 Glucose 74 - 99 mg/dL 97 94 97 BUN 9 - 24 mg/dL 21 18 24 Creatinine 0.73 - 1.22 mg/dL 1.15 1.00 1.06 Sodium 136 - 144 mmol/L 137 140 140 Potassium 3.7 - 5.1 mmol/L 3.3 (L) 3.8 4.0 Chloride 97 - 105 mmol/L 96 (L) 99 101 CO2 22 - 30 mmol/L 27 30 28 Anion Gap 9 - 18 mmol/L 14 11 11 ALT 10 - 54 U/L 5 (L) 9 (L) 9 (L) eGFR- >60 eGFR-All Other Races . >60 eGFR >=60 mL/min/1.73m 79 74 WBC 3.70 - 11.00 k/uL 12.45 (H) 8.80 RBC 4.20 - 6.00 m/uL 5.53 5.81 Hemoglobin 13.0 - 17.0 g/dL 16.0 16.3 Hematocrit 39.0 - 51.0 % 47.3 48.9 MCV 80.0 - 100.0 fL 85.5 84.2 MCH 26.0 - 34.0 pg 28.9 28.1 MCHC 30.5 - 36.0 g/dL 33.8 33.3 RDW-CV 11.5 - 15.0 % 12.4 13.0 Platelet Count 150 - 400 k/uL 253 230 MPV 9.0 - 12.7 fL 11.2 11.2 Absolute nRBC <0.01 k/uL <0.01 <0.01 Cholesterol, Total <200 mg/dL 138 169 Triglyceride <150 mg/dL 49 139 HDL Cholesterol >39 mg/dL 56 44 LDL Cholesterol <100 mg/dL 72 97 Non HDL Cholesterol <130 mg/dL 82 125 Fasting Time hrs 12 12 VLDL Cholesterol <30 mg/dL 10 28 TC:HDL Ratio <5.10 2.46 3.84 LDL:HDL Ratio <2.54 1.29 2.20 Parkinson's disease (hcc) Rem sleep behavior disorder Neurologist: Dr. Sade Beckman Current medications: Carbidopa-levodopa 25-100mg three times a day Persistent tremor right arm/ hand About the same Denies falls in a long time Denies immobility issues Hypothyroidism, acquired Thyroid nodule Current medication: Levothyroxine 50mcg daily AC Taking as directed on an empty stomach? Yes. Thyroid pain: No. Mass effect: No. Change in energy level/ fatigue? 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 Sleep disturbance ?only self induced. Temperature Intolerance: cold No, hot No. In females, menstrual cycle issues? N/a, If yes: Change in bowel habits? No. If yes: Constipation? Yes. If yes: a little, attributes to meds and not drinking water. Back teeth have degenerated. Hasn't been to dentist in a long time. Diarrhea? No. If yes: Weight changes? weight loss intentional. . Memory issues: years ago smoked pot, had memory issues that have persisted, mostly pauses in names which he remembers later: persistent sx. Diaphoresis: No. Numbness, tingling none Radiological imaging with contrast dyes within the last 3 months? No. History of radiation exposure to head or neck area? No. Change in hair or skin? No. If yes: Other symptoms: Last thyroid labs: TSH Date Value 02/09/2022 3.100 mIU/L 05/06/2021 2.360 uU/mL 10/31/2019 2.770 uU/mL ) 07/22/2021 ultrasound thyroid: Nodule 1: Mid to upper right lobe 2.2 x 2.2 x 1.9 cm, solid or nearly solid, hyperechoic, TR 3 with imaging repeat recommended 1, 3 and 5 years Nodule 2: Lower portion right lobe: 1.6 x 2.0 x 1.5 cm, mixed cystic and solid, isoechoic TR 2: No follow-up or FNA recommended. Fatty liver 09/25/2022 CT abdomen pelvis with IVC: Normal liver, 3 mm stone present in neck/cystic duct region of gallbladder with associated circumferential diffuse thickening of gallbladder wall and pericholecystic inflammation consistent with acute cholecystitis. Normal spleen normal pancreas Mild cortical atrophy of bilateral kidneys consistent with chronic renal disease. 3 mm nonobstructing calyceal stone present in upper pole of right kidney Diffuse atherosclerotic calcification abdominal aorta without aneurysm Several moderate to large sized calcified stones are present in the posterior aspect of the bladder measuring 1.4 cm and 1.1 cm, additional multiple tiny stones present in the dependent and posterior aspect of the bladder. Small area of mucosal thickening/trabeculation within the right side of the bladder wall Anxiety No issues. Gout with manifestations No recent sx. Urination with some hesitancy, some intermittency, no straining. HISTORIES FAMILY HISTORY Problem Relation Age of Onset Ischemic Heart Disease Mother 60 other (rheumatoid arthritis) Mother PAST MEDICAL HISTORY Diagnosis Date Gout History of TIAs 2006 negative workup. bp etiology Hypertension Parkinson's disease (HCC) Personal history of kidney stones 2005 PAST SURGICAL HISTORY Procedure Laterality Date L'SCOPE CHOLECYSTECTOMY 09/25/2022 Social History Tobacco Use Smoking status: Never Smokeless tobacco: Never Vaping Use Vaping Use: Never used Substance Use Topics Alcohol use: No Drug use: No ACTIVE PROBLEM LIST Unspecified Transient Cerebral Ischemia Hyperlipemia Calculus of Kidney Essential Hypertension Gout With Manifestations Calculus of Gallbladder Without Cholecystitis Without Obstruction Gallbladder Polyp Fatty Liver Posterior Vitreous Detachment of Left Eye Vitreous Floaters of Both Eyes Parkinson's Disease (Hcc) Anxiety Rem Sleep Behavior Disorder Hypothyroidism, Acquired Bilateral Carotid Artery Stenosis Thyroid Nodule Current Outpatient Medications Medication Sig Dispense Refill carbidopa-levodopa (SINEMET 25-100) 25-100 mg per tablet Take 1 tablet by mouth four times daily. 360 tablet 3 triamterene-hydroCHLOROthiazide (MAXZIDE) 75-50 mg per tablet Take 1 tablet by mouth once daily. 90 tablet 1 amLODIPine (NORVASC) 10 mg tablet Take 1 tablet by mouth once daily. 90 tablet 3 atenolol (TENORMIN) 25 mg tablet Take 1 tablet by mouth once daily. 90 tablet 3 aspirin, enteric coated (ADULT LOW DOSE ASPIRIN) 81 mg EC tablet Take 1 tablet by mouth once daily. 100 tablet 3 levothyroxine (SYNTHROID) 50 mcg tablet Take 1 tablet by mouth once daily. Take on empty stomach. For Thyroid. 90 tablet 3 No current facility-administered medications for this visit. COLORECTAL CANCER SCREENING due on 11/30/2018 ADVANCE DIRECTIVE DISCUSSION due on 10/16/2022 DEPRESSION ASSESSMENT due on 10/16/2022 EXAM: BP 126/60 Pulse (!) 50 Wt 90.7 kg (200 lb) SpO2 98% BMI 27.89 kg/m Pleasant older man in no acute distress. Alert and oriented all spheres. Normal affect and cognition. Speech normal. No deficits to learning or comprehension. Skin warm, dry, pink to lips and nailbeds. Normal turgor. Respirations regular and unlabored. HEENT: NCAT. No scleral icterus or conjunctival injection. TM's clear. Nose and oropharynx free from injection or lesion. Multiple missing teeth, no infection or lesions. Oral membranes moist and pink. No cervical lymph nodes. Thyroid non-tender, no masses, or enlargement. Carotids pulses 2+/4+ without bruits. No JVD with HOB at 30 degrees. Chest is normal shape. Lungs are clear to all ribera with good air exchange through out. HRRR without murmur or gallop. No lifts, heaves, or rubs. Extrem: no clubbing, cyanosis, 0-1+ pitting edema ankles. Distal pulses 2+/4, prompt capillary refill. Chronic parkinsonian tremor bilateral hands. Gait is slightly wide base but no hesitancy. ASSESSMENT/PLAN: 1. Essential hypertension - ICD9: 401.9, ICD10: I10 (primary diagnosis) - good control - Continue current medication(s) - Recommended regular aerobic exercise. - Recommend home blood pressure monitoring, to bring results in on next visit - Goal of BP <130/80 - CBC + DIFF - COMP METABOLIC PANEL 2. Hyperlipidemia, unspecified hyperlipidemia type - ICD9: 272.4, ICD10: E78.5 - good control - Encouraged following a low fat, low cholesterol diet. - COMP METABOLIC PANEL - LIPID PANEL BASIC 3. TIA (transient ischemic attack) - ICD9: 435.9, ICD10: G45.9 No recent issues 4. Bilateral carotid artery stenosis - ICD9: 433.10, 433.30, ICD10: I65.23 Mild disease. Follow in a year 5. Parkinson's disease (HCC) - ICD9: 332.0, ICD10: G20 Persistent, managing well, follows with neuro 6. REM sleep behavior disorder - ICD9: 327.42, ICD10: G47.52 stable 7. Hypothyroidism, acquired - ICD9: 244.9, ICD10: E03.9 - Instructed patient on importance of taking on an empty stomach either first thing in the morning or at bedtime. Stable - US THYROID/PARATHYROID - COMP METABOLIC PANEL - TSH BLD 8. Thyroid nodule - ICD9: 241.0, ICD10: E04.1 - US THYROID/PARATHYROID - TSH BLD 9. Anxiety - ICD9: 300.00, ICD10: F41.9 No issues 10. Gout with manifestations - ICD9: 274.89, ICD10: M10.9 None recent. 11. Fatty liver - ICD9: 571.8, ICD10: K76.[address] - COMP METABOLIC PANEL Some of this note may have been copied and pasted for the purpose of history context and comparison. Mamadou Wu PA-C documented in this encounter [facility] 01-05-2023 Note HNO ID: [id number] Author: Danielle Soliz MA Service: ? Author Type: Tutoring Manager Type: Progress Notes Filed: 01/05/2023 3:40 PM Note Text: POPULATION HEALTH NAVIGATION OUTREACH Action/FYI left message to call me back to schedule colonoscopy follow up 02/14/23 Patient Identified by Name and : NO Outreach Outcome/Action Unable to reach patient: Left message Did you use a PCP flex slot to schedule this appointment? N/A Reason for Outreach Care Gap or Scheduling/Wellness visits Payer: Payor: MEDICARE / Plan: MEDICARE A AND B / Product Type: Medicare / Care Gap Reviewed:: Colorectal Cancer Screening Reminder: Reminder note to check Health Maintenance for items below Health Maintenance items due: COLORECTAL CANCER SCREENING due on 11/30/2018 ADVANCE DIRECTIVE DISCUSSION due on 10/16/2022 DEPRESSION ASSESSMENT due on 10/16/2022 Navigation Signature: Danielle Soliz MA January 05, 2023 3:39 PM [facility] 01-05-2023 History of Presen t illness Narrative POPULATION HEALTH NAVIGATION OUTREACH Action/FYI left message to call me back to schedule colonoscopy follow up 02/14/23 Patient Identified by Name and : NO Outreach Outcome/Action Unable to reach patient: Left message Did you use a PCP flex slot to schedule this appointment? N/A Reason for Outreach Care Gap or Scheduling/Wellness visits Payer: Payor: MEDICARE / Plan: MEDICARE A AND B / Product Type: Medicare / Care Gap Reviewed:: Colorectal Cancer Screening Reminder: Reminder note to check Health Maintenance for items below Health Maintenance items due: COLORECTAL CANCER SCREENING due on 11/30/2018 ADVANCE DIRECTIVE DISCUSSION due on 10/16/2022 DEPRESSION ASSESSMENT due on 10/16/2022 Navigation Signature: Danielle Soliz MA January 05, 2023 3:39 PM documented in this encounter [facility] 01-05-2023 Note Patient Outreach (KAITY HAMM) TRACI COOPER JR. ([id number]) 1950 M Date Time Provider Department 01/05/23 DANIELLE SOLIZ During your visit today, we recorded the following information about you: Danielle Soliz MA 01/05/2023 3:40 PM Signed POPULATION HEALTH NAVIGATION OUTREACH Action/FYI left message to call me back to schedule colonoscopy follow up 02/14/23 Patient Identified by Name and : NO Outreach Outcome/Action Unable to reach patient: Left message Did you use a PCP flex slot to schedule this appointment? N/A Reason for Outreach Care Gap or Scheduling/Wellness visits Payer: Payor: MEDICARE / Plan: MEDICARE A AND B / Product Type: Medicare / Care Gap Reviewed:: Colorectal Cancer Screening Reminder: Reminder note to check Health Maintenance for items below Health Maintenance items due: COLORECTAL CANCER SCREENING due on 11/30/2018 ADVANCE DIRECTIVE DISCUSSION due on 10/16/2022 DEPRESSION ASSESSMENT due on 10/16/2022 Navigation Signature: Danielle Soliz MA January 05, 2023 3:39 PM Allergies As of Date: 01/05/2023 (No Known Allergies) Date Reviewed: 12/27/2022 Reviewed by: Sade Beckman APRN.SCHOOL STANDARDS COACH - Fully Assessed Reason for Visit: Population Health Navigation Outreach [3910] Cmt: ACO Care Gaps Prescriptions as of 01/05/2023 - carbidopa-levodopa (SINEMET 25-100) 25-100 mg per tablet Take 1 tablet by mouth four times daily. - triamterene-hydroCHLOROthiazide (MAXZIDE) 75-50 mg per tablet Take 1 tablet by mouth once daily. - amLODIPine (NORVASC) 10 mg tablet Take 1 tablet by mouth once daily. - atenolol (TENORMIN) 25 mg tablet Take 1 tablet by mouth once daily. - aspirin, enteric coated (ADULT LOW DOSE ASPIRIN) 81 mg EC tablet Take 1 tablet by mouth once daily. - levothyroxine (SYNTHROID) 50 mcg tablet Take 1 tablet by mouth once daily. Take on empty stomach. For Thyroid. Problem List As Of Date 01/05/2023 Noted Resolved BENIGN HYPERTENSION [I10] 12/22/2006 11/05/2007 TRANSIENT CEREBRAL ISCHEMIA NOS [G45.9] 12/22/2006 Hyperlipemia [E78.5] 04/23/2007 CALCULUS OF KIDNEY [N20.0] 06/08/2007 Essential hypertension [I10] 11/05/2007 Gout with manifestations [M10.9] 10/19/2016 Calculus of gallbladder without cholecystitis w*11/30/2017 Gallbladder polyp [K82.4] 11/30/2017 Fatty liver [K76.0] 11/30/2017 Posterior vitreous detachment of left eye [H43.*01/02/2018 Vitreous floaters of both eyes [H43.393] 01/02/2018 Parkinson's disease (HCC) [G20] 08/21/2019 Anxiety [F41.9] 08/21/2019 Restless legs syndrome [G25.81] 08/21/2019 02/11/2022 REM sleep behavior disorder [G47.52] 08/21/2019 Hypothyroidism, acquired [E03.9] 05/06/2021 Bilateral carotid artery stenosis [I65.23] 05/31/2021 Thyroid nodule [E04.1] 07/22/2021 Encounter Status:Closed by DANIELLE SOLIZ on 01/05/23 [facility] 12-27-2022 Note HNO ID: [id number] Author: Saed Beckman APRN.SCHOOL STANDARDS COACH Service: ? Author Type: Nurse Practitioner Type: Progress Notes Filed: 12/27/2022 9:36 AM Note Text: [facility] - FOLLOW UP EVALUATION Sydney Julien MD [id number] [facility] [id number] Dear Sydney Julien MD: I had the pleasure of seeing Mr. Cooper for follow-up today. As you know he is a 72 year old right-handed male with a history of Parkinson's disease since 2019. He is seen alone. Subjective Previous Plan-02/11/2022 Visit: Parkinson's disease: Continue Sinemet three times daily REM Sleep Behavior Disorder: Please let me know if this worsens. Sialorrhea (drooling): You have been provided with a hand out on drooling. Please do not hesitate to let me know if you have any questions about anything you read. Interval History: He had a gall bladder surgery a few months ago and did well with it. He said his Parkinson's disease symptoms are not getting any better or any worse. It does bother him more at work sometimes though and there has been times when he could not complete a task due to the tremor. Movement Disorders Medications Schedule - as of the start of the visit: Medications 3am 2pm 8pm Sinemet 25/100 1 1 1 Parkinson's Motor Complications Medication benefit onset: unclear Medication duration: unclear Wearing off: no Painful off-state dystonia: no Dyskinesia: no Prior Anti-Parkinson Therapies Carbidopa/Levodopa Questionnaires: In addition, the following areas that may be affected by abnormal involuntary movements were evaluated: Daily activities Difficulties with eating: Yes (mild) Difficulties in dressin (none) Difficulties with hygiene activities: 0 (none) Difficulties with handwriting: Yes (moderate) Difficulties with doing hobbies and other activities: 0 (none) Difficulties turning in bed: 0 (none) Difficulties getting out of bed, car or chair: 0 (none) Tremors/Gait/Balance Shaking or tremors: 0 (none) Walking and balance problems: 0 (none) Number of falls in the Last Month: 0 Gait freezin (none) Autonomic/Pain Lightheadeness on standin (none) Urinary problems: 0 (none) Constipation problems: 0 (none) Pain and other sensations: Yes (mild) Speech/Swallowing Speech problems: Yes (slight) Droolin (none) Chewing and swallowing problems: 0 (none) Sleep/Fatigue Sleep problems: 0 (none) Daytime sleepiness: 0 (none) Fatigue: 0 (none) Mood/Behavior Depression: PHQ-9 Score: 4 usually representing no significant (0-4) depression. Anxiety: GIUSEPPE-7 Total Score: 0 usually representing no significant (0-4) anxiety. Finally, the following table shows the patient's overall global physical and mental health using the PROMIS scale: PROMIS-10 Flowsheet Row Office Visit from 12/27/2022 in Neurology Office Visit from 02/11/2021 in Neurology Global Physical Health T Score 54.1 54.1 Global Mental Health T Score 53.3 53.3 0-10 Standard Pain Scale 5 5 *PROMIS-10 scoring scale: mean = 50, over 50 is above average, under 50 is below average In addition, the following non-motor symptoms and palliative concerns were evaluated: Sleep/Fatigue: REM sleep behavior disorder: No Restless Legs Syndrome: No Leg swelling: No Impaired sense of smell: No Cognition: Cognitive impairment: He sometimes has troublw remembering something but will remember with time. MoCA Cognitive assessment: Hallucinations and delusions: no Apathy: occasionally Impulse control disorder: Palliative Concerns: Caregiver burden: Spiritual concerns: No Advanced directives on file: No Palliative services: No Therapy and Exercise: Last PT Date: Last OT Date: Last ST Date: Exercises Regularly: He is active at work and in the summer he is more active but he does not do structured exercise. ALLERGIES No Known Allergies Current Outpatient Medications Medication Sig triamterene-hydroCHLOROthiazide (MAXZIDE) 75-50 mg per tablet Take 1 tablet by mouth once daily. amLODIPine (NORVASC) 10 mg tablet Take 1 tablet by mouth once daily. atenolol (TENORMIN) 25 mg tablet Take 1 tablet by mouth once daily. aspirin, enteric coated (ADULT LOW DOSE ASPIRIN) 81 mg EC tablet Take 1 tablet by mouth once daily. levothyroxine (SYNTHROID) 50 mcg tablet Take 1 tablet by mouth once daily. Take on empty stomach. For Thyroid. carbidopa-levodopa (SINEMET 25-100) 25-100 mg per tablet Take 1 tablet by mouth four times daily. No current facility-administered medications for this visit. Objective Vital Signs: Ht 180.3 cm (5' 11 ) Wt 92.3 kg (203 lb 8 oz) SpO2 96% BMI 28.38 kg/m? Orthostatic Vitals: Sitting: BP 105/76 Pulse 82 Standing: BP 107/50 Pulse 74 Weight: 92.3 kg (203 lb 8 oz) Height: 180.3 cm (5' 11 ) No LMP for male patient. Body mass index is 28.38 kg/m?. Movement Disorders Scales Performed: MDS-UPDRS Motor subscale condition of ex (more content not included)... [facility] 12-27-2022 Instructions Sade Beckman APRN.[facility] - 12/27/2022 9:21 AM EDT It was a pleasure to see you today. We addressed the following diagnoses: Parkinson's disease (hcc) (primary encounter diagnosis) My recommendations are as follows: 12/27/2022 Visit: Parkinson's disease: Increase the Sinemet as noted below Let me know if you change your mind and would like to see our occupational therapist Movement Disorders Medication Schedule: Medications 3am 8am 1pm 6pm Sinemet 25/100 1 1 1 1 Return in about 6 months (around 06/29/2023). If there are any concerns before your next visit, please call or you can send a message through [employer]. You can also now schedule and select appointments through [employer]. Sade Beckamn APRN.ALIVIA documented in this encounter [facility] 12-27-2022 History of Presen t illness Narrative [facility] - FOLLOW UP EVALUATION Sydney Julien MD [address] [facility] [address] [facility] [id number] Dear Sydney Julien MD: I had the pleasure of seeing Mr. Cooper for follow-up today. As you know he is a 72 year old right-handed male with a history of Parkinson's disease since 2019. He is seen alone. Subjective Previous Plan-02/11/2022 Visit: Parkinson's disease: Continue Sinemet three times daily REM Sleep Behavior Disorder: Please let me know if this worsens. Sialorrhea (drooling): You have been provided with a hand out on drooling. Please do not hesitate to let me know if you have any questions about anything you read. Interval History: He had a gall bladder surgery a few months ago and did well with it. He said his Parkinson's disease symptoms are not getting any better or any worse. It does bother him more at work sometimes though and there has been times when he could not complete a task due to the tremor. Movement Disorders Medications Schedule - as of the start of the visit: Medications 3am 2pm 8pm Sinemet 25/100 1 1 1 Parkinson's Motor Complications Medication benefit onset: unclear Medication duration: unclear Wearing off: no Painful off-state dystonia: no Dyskinesia: no Prior Anti-Parkinson Therapies Carbidopa/Levodopa Questionnaires: In addition, the following areas that may be affected by abnormal involuntary movements were evaluated: Daily activities Difficulties with eating: Yes (mild) Difficulties in dressin (none) Difficulties with hygiene activities: 0 (none) Difficulties with handwriting: Yes (moderate) Difficulties with doing hobbies and other activities: 0 (none) Difficulties turning in bed: 0 (none) Difficulties getting out of bed, car or chair: 0 (none) Tremors/Gait/Balance Shaking or tremors: 0 (none) Walking and balance problems: 0 (none) Number of falls in the Last Month: 0 Gait freezin (none) Autonomic/Pain Lightheadeness on standin (none) Urinary problems: 0 (none) Constipation problems: 0 (none) Pain and other sensations: Yes (mild) Speech/Swallowing Speech problems: Yes (slight) Droolin (none) Chewing and swallowing problems: 0 (none) Sleep/Fatigue Sleep problems: 0 (none) Daytime sleepiness: 0 (none) Fatigue: 0 (none) Mood/Behavior Depression: PHQ-9 Score: 4 usually representing no significant (0-4) depression. Anxiety: GIUSEPPE-7 Total Score: 0 usually representing no significant (0-4) anxiety. Finally, the following table shows the patient's overall global physical and mental health using the PROMIS scale: PROMIS-10 Flowsheet Row Office Visit from 12/27/2022 in Neurology Office Visit from 02/11/2021 in Neurology Global Physical Health T Score 54.1 54.1 Global Mental Health T Score 53.3 53.3 0-10 Standard Pain Scale 5 5 *PROMIS-10 scoring scale: mean = 50, over 50 is above average, under 50 is below average In addition, the following non-motor symptoms and palliative concerns were evaluated: Sleep/Fatigue: REM sleep behavior disorder: No Restless Legs Syndrome: No Leg swelling: No Impaired sense of smell: No Cognition: Cognitive impairment: He sometimes has troublw remembering something but will remember with time. MoCA Cognitive assessment: Hallucinations and delusions: no Apathy: occasionally Impulse control disorder: Palliative Concerns: Caregiver burden: Spiritual concerns: No Advanced directives on file: No Palliative services: No Therapy and Exercise: Last PT Date: Last OT Date: Date: Exercises Regularly: He is active at work and in the summer he is more active but he does not do structured exercise. ALLERGIES No Known Allergies Current Outpatient Medications Medication Sig triamterene-hydroCHLOROthiazide (MAXZIDE) 75-50 mg per tablet Take 1 tablet by mouth once daily. amLODIPine (NORVASC) 10 mg tablet Take 1 tablet by mouth once daily. atenolol (TENORMIN) 25 mg tablet Take 1 tablet by mouth once daily. aspirin, enteric coated (ADULT LOW DOSE ASPIRIN) 81 mg EC tablet Take 1 tablet by mouth once daily. levothyroxine (SYNTHROID) 50 mcg tablet Take 1 tablet by mouth once daily. Take on empty stomach. For Thyroid. carbidopa-levodopa (SINEMET 25-100) 25-100 mg per tablet Take 1 tablet by mouth four times daily. No current facility-administered medications for this visit. Objective Vital Signs: Ht 180.3 cm (5' 11 ) Wt 92.3 kg (203 lb 8 oz) SpO2 96% BMI 28.38 kg/m Orthostatic Vitals: Sitting: BP 105/76 Pulse 82 Standing: BP 107/50 Pulse 74 Weight: 92.3 kg (203 lb 8 oz) Height: 180.3 cm (5' 11 ) No LMP for male patient. Body mass index is 28.38 kg/m . Movement Disorders Scales Performed: MDS-UPDRS Motor subscale condition of exam Medication Off/On/Naiive ON Time of UPDRS 0947 Time of Last Medication Last Medication Taken DBS Right N/A DBS Left N/A MDS-UPDRS Motor subscale scores Speech 2-Mild. Loss of modulation, diction, or volume, with a few words unclear, but the overall sentences easy to follow. Finger Taps Right 2-Mild. a) 3 to 5 interruptions during tapping, b) mild slowing, c) the amplitude decrements midway in the 10-tap sequence. Finger Taps Left 2-Mild. a) 3 to 5 interruptions during tapping, b) mild slowing, c) the amplitude decrements midway in the 10-tap sequence. Hand Movements Right 1-Slight. a) the regular rhythm is broken with one or two interruptions or hesitations of the movement, b) slight slowing, c) the amplitude decrements near the end of the task. Hand Movements Left 1-Slight. a) the regular rhythm is broken with one or two interruptions or hesitations of the movement, b) slight slowing, c) the amplitude decrements near the end of the task. Arm Movements Right 2-Mild. a) 3 to 5 interruptions during the movements, b) mild slowing, c) the amplitude decrements midway in the sequence. Arm Movements Left 3-Moderate. a) more than 5 interruptions during the movement or at least one longer arrest (freeze) in ongoing movement, b) moderate slowing, c) the amplitude decrements starting after the 1st supination-pronation sequence. Toe Taps Right 2-Mild. a) 3 to 5 interruptions during the tapping movements, b) mild slowing, c) the amplitude decrements midway in the task. Toe Taps Left 3-Moderate. a) more than 5 interruptions during the tapping movements or at least one longer arrest (freeze) in ongoing movement, b) moderate slowing, c) the amplitude decrements starting after the first tap. Leg Agility Right 1-Slight. a) the regular rhythm is broken with one or two interruptions or hesitations of the movement, b) slight slowing, c) the amplitude decrements near the end of the task. Leg Agility Left 1-Slight. a) the regular rhythm is broken with one or two interruptions or hesitations of the movement, b) slight slowing, c) the amplitude decrements near the end of the task. Arise From Chair 0-Normal. No problems. Able to arise quickly without hesitation. Gait 1-Slight. Independent walking with minor gait impairment. Gait Freezing 0-Normal. No freezing. Posture Stability Posture 2-Mild. Definite flexion, scoliosis or leaning to one side, but patient can correct posture to normal posture when asked to do so. Body Bradykinesia 1-Slight. Slight global slowness and poverty of spontaneous movements. Postural Tremor Hand Right 0-Normal. No tremor. Postural Tremor Hand Left 0-Normal. No tremor. Kinetic Tremor Right 0-Normal. No tremor. Kinetic Tremor Left 0-Normal. No tremor. Rest Tremor Amplitude Right Upper Extremity 2-Mild. > 1 cm but < 3 cm in maximal amplitude. Rest Tremor Amplitude Left Upper Extremity 1-Slight. < 1 cm in maximal amplitude. Rest Tremor Amplitude Right Lower Extremity 0-Normal. No tremor. Rest Tremor Amplitude Right Lower Extremity Rest Tremor Amplitude Lip/Jaw 0-Normal. No tremor. Rest Tremor Constancy 4-Severe. Tremor at rest is present > 75% of the entire examination period. Pertinent Studies 05/01/18 Brain MRI Impression: No acute intracranial findings. No intracranial mass or pathologic enhancement. Mild parenchymal volume loss and mild sequela of chronic microvascular ischemia. Assessment and Plan: Assessment Mr. Cooper is a right-handed 72 year old year old male with Parkinson's disease since 2019. His tremor is quite significant and though he did find it somewhat helpful, taking a larger amount in any given dose makes him feel a little out of it and this concerned him due to his job. 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 He is open to taking one tablet four times a day though he indicated it will probably be difficult to remember while he is at work. He is going to give this a try though. The following are the current problems noted and addressed during this visit: Parkinson's disease (hcc) (primary encounter diagnosis) Plan 12/27/2022 Visit: Parkinson's disease: Increase the Sinemet as noted below Let me know if you change your mind and would like to see our occupational therapist Updated Movement Disorders Medication Schedule: Medications 3am 8am 1pm 6pm Sinemet 25/100 1 1 1 1 Medical Decision Making: Problems: Low: Stable chronic illness Risk: Moderate: Drug management Medical Decision Making Level: 3 - Low Sade Beckman APRN.ALIVIA documented in this encounter [facility] 11-24-2022 Note HNO ID: [id number] Author: Mamadou Wu PA-C Service: ? 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 Get attacks once every three-four months. Was on allopurinol in past but had some kind of intolerance and it was stopped- doesn't remember details. HISTORIES FAMILY HISTORY Problem Relation Age of Onset Ischemic Heart Disease Mother 60 other (rheumatoid arthritis) Mother PAST MEDICAL HISTORY Diagnosis Date Gout History of TIAs 2006 negative workup. 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 90 tablet 1 amLODIPine (NORVASC) 10 mg tablet Take 1 tablet by mouth once daily. 90 tablet 3 atenolol (TENORMIN) 25 mg tablet Take 1 tablet by mouth once daily. 90 tablet 3 aspirin, enteric coated (ADULT LOW DOSE ASPIRIN) 81 mg EC tablet Take 1 tablet by mouth once daily. 100 tablet 3 levothyroxine (SYNTHROID) 50 mcg tablet Take 1 tablet by mouth once daily. Take on empty stomach. For Thyroid. 90 tablet 3 carbidopa-levodopa (SINEMET 25-100) 25-100 mg per tablet Take 1 tablet by mouth three times daily. 270 tablet 3 naproxen sodium (ANAPROX) 220 mg tablet Take 220 mg by mouth twice daily with meals. No current facility-administered medications for this visit. COLORECTAL CANCER SCREENING due on 11/30/2018 ADVANCE DIRECTIVE DISCUSSION due on 10/16/2022 DEPRESSION ASSESSMENT due on 10/16/2022 EXAM: BP 124/66 Pulse 63 Temp 36.7 ?C (98 ?F) Resp 16 Wt 89.8 kg (198 lb) SpO2 97% BMI 27.62 kg/m? Pleasant older man with parkinsonian facies and tremor in no acute distress. Alert and oriented all spheres. Normal affect and cognition. Speech normal. No deficits to learning or comprehension. Skin warm, dry, pink to lips and nailbeds. Normal turgor. Respirations regular and unlabored. Extrem: no clubbing or cyanosis. Edema: bilateral legs are doughy with 0-1/+ pitting. Mild faint pink erythema left medial ankle with tenderness on palpation and movement. Left knee pain with movement but no significant swelling or erythema. Extremities are warm and pink with prompt capillary refill. ASSESSMENT/PLAN: 1. Acute idiopathic gout of multiple sites - ICD9: 274.01, ICD10: M10.09 Moist heat may help. Usually improves with prednisone. F/U prn if not improving. Reviewed low purine diet Notify is not improved in 3-5 days Discussed colchicine as another preventive- not interested currently - PREDNISONE 20 MG TABLET Mamadou Wu PA-C [facility] 11-24-2022 Instructions Mamadou Wu PA-C - 11/24/2022 9:40 AM EST Gout What is gout? Gout is a disease usually caused by having too much uric acid in your body. Too much uric acid may not cause symptoms for years, but after a time it usually causes painful joint inflammation (arthritis). The most common site of inflammation is the joint between the foot and the big toe. Later attacks often affect other joints of the foot and leg. Less often, the arms and hands are affected. In addition to the arthritis, gout causes the formation of tophi. Tophi are lumpy deposits of uric acid crystals just under the skin. Common places for tophi to develop are in the outer edge of the ear, on or near the elbow, over the fingers and toes, and around the Achilles tendon in the ankle. Gout can also cause kidney stones made of uric acid. Most people who have gout are middle-aged men, but it can occur at any age. Only 5 to 10% of cases of gout occur in women, most often after menopause. How does it occur? Gout usually occurs because too much uric acid is in your joints. Uric acid comes from the breakdown of substances called purines. Purines are found in all of your body's tissues. They are also in many foods. Normally, uric acid dissolves in the blood and passes through the kidneys and out of the body in urine. If the levels of uric acid build up in the blood, sharp uric acid crystals may form in the joints. The crystals cause pain and swelling. You may have too much uric acid in your joints when your kidney does not get rid of enough uric acid or when your body makes too much uric acid. Most cases of gout are caused by poor elimination of uric acid by the kidneys, but it can be hard to know why this is happening. The specific problem with the kidney is usually never found. Some people inherit a tendency to make too much uric acid. Others may make too much uric acid because they have a disease such as cancer or certain types of red blood cell disorders. A diet high in alcoholic drinks and purine-rich foods (such as meats) can also cause your body to make too much uric acid. Uric acid levels in men start to go up after puberty. Women's uric acid levels usually do not go up until after menopause. For this reason women are protected from gout until several years after menopause. The uric acid levels have to be high for many years before gout develops. Men with gout usually have their first attack when they are middle-aged. Certain conditions, such as dehydration, can cause excess levels of uric acid. Diuretic medicine (also called water pills) can increase levels of uric acid. Other medicines can also affect the level of uric acid in the blood. It is important to make sure your health care provider knows all the medicines you are using, both prescription and nonprescription. People who have recently had a serious illness or surgery have an increased chance of having an attack of gout. Some people have gouty arthritis even though they have normal uric acid levels. What are the symptoms? Some people have high uric acid blood levels for years and never have any symptoms. Only 10 to 20% of people with high levels develop the symptoms of: sudden, severe pain, especially of just one joint at a time redness swelling. The sudden attacks are sometimes related to physical illness, trauma, or excessive alcohol use. The symptoms may last for days to weeks. The arthritis usually occurs before tophi or kidney stones develop. The tophi do not cause any symptoms unless they open and drain. They are often not painful. Depending on their location, they may limit the movement of joints. The symptoms of uric acid stones are like those of other kidney stones. They can cause severe abdominal pain and sometimes nausea, vomiting, fever, or blood in the urine. How is it diagnosed? Your health care provider will suspect that you have gout if: Your first toe joint is inflamed. You have a blood test that shows a high level of uric acid in your blood. You are developing tophi. You start taking the drug colchicine and your symptoms of arthritis improve. (Colchicine, an anti-inflammatory drug, is effective only in gouty-type arthritis.) To confirm the diagnosis, your provider may take a sample of fluid from the affected joint or joints and send it to the lab for tests. If you have uric acid crystals in the fluid, you have gout. How is it treated? Usually, if you have high uric acid levels but no symptoms, you will not need treatment. In special cases (for example, if you have a strong family history of gouty arthritis or kidney stones), you may be treated for gout even though you do not have any symptoms. If you have symptoms of gout, the goals of treatment are: Stop the pain of gouty arthritis or kidney stones. Try to prevent the recurrence of these problems by controlling the uric acid levels. Prevent serious complications such as kidney damage. Treatment of the arthritis first involves the use of anti-inflammatory medicines, such as: indomethacin ibuprofen or naproxen corticosteroid drugs, such as prednisone colchicine. Aspirin is not usually recommended because it may keep the urine from taking the uric acid out of the body. Anti-inflammatory medicines are sometimes taken daily to prevent recurrent attacks of gouty arthritis. If the gouty arthritis becomes a frequent problem, allopurinol and probenecid may also be prescribed to prevent damaging deposits of uric acid in the joints. How long will the effects last? The sooner treatment is started, the sooner the symptoms stop, which may be within 24 to 48 hours. If gout is not treated, it could last a few days to several weeks. A second attack may occur, but usually not for 6 months to 2 years. In other cases another attack may not occur until many years later, or never. How can I help prevent gout? There is no sure way to prevent gout. However, you can take these steps to lessen the chance that you will have high uric acid levels: Eat a diet low in purines and do not overindulge in alcohol. Purine-containing foods include organ meats (such as sweetbreads, liver, and kidney), shrimp, anchovies, sardines, and dried legumes. Your consumption of alcoholic beverages should not exceed 2 ounces a day. Drink lots of fluids. Published by [employer]. This content is reviewed periodically and is subject to change as new health information becomes available. The information is intended to inform and educate and is not a replacement for medical evaluation, advice, diagnosis or treatment by a healthcare professional. Developed by [employer]. Copyright 2005 [employer] and/or one of its subsidiaries. All Rights Reserved. Special Instructions: Prednisone is for reducing inflammation, if any issues, let me know. Copyright [employer] 2006 Adult Health Advisor documented in this encounter [facility] 11-24-2022 History of Presen t illness Narrative 72 year old male with c/o gout flare in left foot and knee x 3-4 days Has had several episodes in the past, almost always in left ankle and/or knee. Get attacks once every three-four months. Was on allopurinol in past but had some kind of intolerance and it was stopped- doesn't remember details. HISTORIES FAMILY HISTORY Problem Relation Age of Onset Ischemic Heart Disease Mother 60 other (rheumatoid arthritis) Mother PAST MEDICAL HISTORY Diagnosis Date Gout History of TIAs 2006 negative workup. 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 90 tablet 1 amLODIPine (NORVASC) 10 mg tablet Take 1 tablet by mouth once daily. 90 tablet 3 atenolol (TENORMIN) 25 mg tablet Take 1 tablet by mouth once daily. 90 tablet 3 aspirin, enteric coated (ADULT LOW DOSE ASPIRIN) 81 mg EC tablet Take 1 tablet by mouth once daily. 100 tablet 3 levothyroxine (SYNTHROID) 50 mcg tablet Take 1 tablet by mouth once daily. Take on empty stomach. For Thyroid. 90 tablet 3 carbidopa-levodopa (SINEMET 25-100) 25-100 mg per tablet Take 1 tablet by mouth three times daily. 270 tablet 3 naproxen sodium (ANAPROX) 220 mg tablet Take 220 mg by mouth twice daily with meals. No current facility-administered medications for this visit. COLORECTAL CANCER SCREENING due on 11/30/2018 ADVANCE DIRECTIVE DISCUSSION due on 10/16/2022 DEPRESSION ASSESSMENT due on 10/16/2022 EXAM: BP 124/66 Pulse 63 Temp 36.7 C (98 F) Resp 16 Wt 89.8 kg (198 lb) SpO2 97% BMI 27.62 kg/m Pleasant older man with parkinsonian facies and tremor in no acute distress. Alert and oriented all spheres. Normal affect and cognition. Speech normal. No deficits to learning or comprehension. Skin warm, dry, pink to lips and nailbeds. Normal turgor. Respirations regular and unlabored. Extrem: no clubbing or cyanosis. Edema: bilateral legs are doughy with 0-1/+ pitting. Mild faint pink erythema left medial ankle with tenderness on palpation and movement. Left knee pain with movement but no significant swelling or erythema. Extremities are warm and pink with prompt capillary refill. ASSESSMENT/PLAN: 1. Acute idiopathic gout of multiple sites - ICD9: 274.01, ICD10: M10.09 Moist heat may help. Usually improves with prednisone. F/U prn if not improving. Reviewed low purine diet Notify is not improved in 3-5 days Discussed colchicine as another preventive- not interested currently - PREDNISONE 20 MG TABLET Mamadou Wu PA-C documented in this encounter [facility] 10-31-2022 Note Patient Outreach (KAITY HAMM) TRACI COOPER JR. ([id number]) 1950 M Date Time Provider Department 10/31/22 EDEL PUGH During your visit today, we recorded the following information about you: Edel Pugh MA 10/31/2022 12:36 PM Signed POPULATION HEALTH NAVIGATION OUTREACH Action/FYI Spoke to Adonis. He declined colonoscopy. Has follow up appt scheduled ANNUAL MEDICARE WELLNESS COLORECTAL CANCER SCREENING ADVANCE DIRECTIVE DISCUSSION due on 10/16/2022 Pt identified by name and : YES, via phone Outreach Outcome/Action Spoke to patient / parent / legal guardian: Patient declined Did you use a PCP flex slot to schedule this appointment? N/A Reason for Outreach Care Gap or Scheduling/Wellness visits Payer: Payor: MEDICARE / Plan: MEDICARE A AND B / Product Type: Medicare / Care Gap Reviewed:: Annual Wellness visit Colorectal Cancer Screening Reminder: Reminder note to check Health Maintenance for items below Health Maintenance items due: COLORECTAL CANCER SCREENING due on 11/30/2018 ADVANCE DIRECTIVE DISCUSSION due on 10/16/2022 DEPRESSION ASSESSMENT due on 10/16/2022 Navigation Signature: Edel Pugh MA October 31, 2022 8:37 AM Allergies As of Date: 10/31/2022 (No Known Allergies) Date Reviewed: 10/18/2022 Reviewed by: Margie Hill PA-C - Fully Assessed Reason for Visit: Population Health Navigation Outreach [3910] Cmt: ACAntonio COLLADO PCSA Prescriptions as of 10/31/2022 - HYDROcodone-acetaminophen (NORCO) 5-325 mg per tablet - triamterene-hydroCHLOROthiazide (MAXZIDE) 75-50 mg per tablet Take 1 tablet by mouth once daily. - amLODIPine (NORVASC) 10 mg tablet Take 1 tablet by mouth once daily. - atenolol (TENORMIN) 25 mg tablet Take 1 tablet by mouth once daily. - aspirin, enteric coated (ADULT LOW DOSE ASPIRIN) 81 mg EC tablet Take 1 tablet by mouth once daily. - levothyroxine (SYNTHROID) 50 mcg tablet Take 1 tablet by mouth once daily. Take on empty stomach. For Thyroid. - carbidopa-levodopa (SINEMET 25-100) 25-100 mg per tablet Take 1 tablet by mouth three times daily. - naproxen sodium (ANAPROX) 220 mg tablet Take 220 mg by mouth twice daily with meals. Problem List As Of Date 10/31/2022 Noted Resolved BENIGN HYPERTENSION [I10] 12/22/2006 11/05/2007 TRANSIENT CEREBRAL ISCHEMIA NOS [G45.9] 12/22/2006 Hyperlipemia [E78.5] 04/23/2007 CALCULUS OF KIDNEY [N20.0] 06/08/2007 Essential hypertension [I10] 11/05/2007 Gout with manifestations [M10.9] 10/19/2016 Calculus of gallbladder without cholecystitis w*11/30/2017 Gallbladder polyp [K82.4] 11/30/2017 Fatty liver [K76.0] 11/30/2017 Posterior vitreous detachment of left eye [H43.*01/02/2018 Vitreous floaters of both eyes [H43.393] 01/02/2018 Parkinson's disease (HCC) [G20] 08/21/2019 Anxiety [F41.9] 08/21/2019 Restless legs syndrome [G25.81] 08/21/2019 02/11/2022 REM sleep behavior disorder [G47.52] 08/21/2019 Hypothyroidism, acquired [E03.9] 05/06/2021 Bilateral carotid artery stenosis [I65.23] 05/31/2021 Thyroid nodule [E04.1] 07/22/2021 Encounter Status:Closed by EDEL PUGH on 10/31/22 [facility] 10-31-2022 Note HNO ID: [id number] Author: Edel Pugh MA Service: ? Author Type: Tutoring Manager Type: Progress Notes Filed: 10/31/2022 12:36 PM Note Text: POPULATION HEALTH NAVIGATION OUTREACH Action/FYI Spoke to Adonis. He declined colonoscopy. Has follow up appt scheduled ANNUAL MEDICARE WELLNESS COLORECTAL CANCER SCREENING ADVANCE DIRECTIVE DISCUSSION due on 10/16/2022 Pt identified by name and : YES, via phone Outreach Outcome/Action Spoke to patient / parent / legal guardian: Patient declined Did you use a PCP flex slot to schedule this appointment? N/A Reason for Outreach Care Gap or Scheduling/Wellness visits Payer: Payor: MEDICARE / Plan: MEDICARE A AND B / Product Type: Medicare / Care Gap Reviewed:: Annual Wellness visit Colorectal Cancer Screening Reminder: Reminder note to check Health Maintenance for items below Health Maintenance items due: COLORECTAL CANCER SCREENING due on 11/30/2018 ADVANCE DIRECTIVE DISCUSSION due on 10/16/2022 DEPRESSION ASSESSMENT due on 10/16/2022 Navigation Signature: Edel Pugh MA October 31, 2022 8:37 AM [facility] 10-31-2022 History of Presen t illness Narrative POPULATION HEALTH NAVIGATION OUTREACH Action/FYI Spoke to Adonis. He declined colonoscopy. Has follow up appt scheduled ANNUAL MEDICARE WELLNESS COLORECTAL CANCER SCREENING ADVANCE DIRECTIVE DISCUSSION due on 10/16/2022 Pt identified by name and : YES, via phone Outreach Outcome/Action Spoke to patient / parent / legal guardian: Patient declined Did you use a PCP flex slot to schedule this appointment? N/A Reason for Outreach Care Gap or Scheduling/Wellness visits Payer: Payor: MEDICARE / Plan: MEDICARE A AND B / Product Type: Medicare / Care Gap Reviewed:: Annual Wellness visit Colorectal Cancer Screening Reminder: Reminder note to check Health Maintenance for items below Health Maintenance items due: COLORECTAL CANCER SCREENING due on 11/30/2018 ADVANCE DIRECTIVE DISCUSSION due on 10/16/2022 DEPRESSION ASSESSMENT due on 10/16/2022 Navigation Signature: Edel Pugh MA October 31, 2022 8:37 AM documented in this encounter [facility] 10-18-2022 Note HNO ID: [id number] Author: Margie Hill PA-C Service: ? Author Type: Physician Mechanical Designer Type: Progress Notes Filed: 10/18/2022 11:28 AM Note Text: FOLLOW UP VISIT - CHOLECYSTECTOMY NAME: Traci Cooper [facility] CLINIC NO.: [id number] DATE OF SERVICE: 10/18/2022 : 1950 REFERRING PHYSICIAN: Sydney Julien MD Traci is a patient I am following with Dr. Ruth for acute gangrenous cholecystitis with obstruction. Dr. Ruth performed a laparoscopic cholecystectomy on 09/25/22. Pathology showed acute and chronic ulcerated and hemorrhagic cholecystitis and cholelithiais. The patient currently notes no complaints. his appetite has been good and he is tolerating food well. he denies fever, chills or abdominal pain. he does note some very minimal incisional discomfort. VITALS: Blood pressure 108/70, pulse 72, temperature 36.4 ?C (97.6 ?F), height 180.3 cm (5' 11 ), weight 90.3 kg (199 lb), SpO2 96 %. On examination, the abdomen is benign. The incisions are healing well without signs of infection or inflammation. Assessment IMPRESSION: status post laparoscopic cholecystectomy for acute gangrenous cholecystitis with obstruction PLAN: If the patient notes any problems, he should contact me immediately. he may return to his regular activities as tolerated, with the exception of no lifting greater than 25 pounds for the next 2 weeks. The patient is to contact me immediately is he experiences any of his preoperative symptoms. We discussed that occasional right up quadrant symptoms similar to the preoperative complaints can occur in the first couple of weeks post operatively. If this persists beyond the first 2-3 weeks, they should contact our office. 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 Margie Hill PA-C [facility] 10-18-2022 Instructions Margie Hill PA-C - 10/18/2022 9:12 AM EST The following instructions are important for you related to your office visit today with the [facility]. INSTRUCTIONS FOLLOWING YOU RECENT GALLBLADDER SURGERY You should be returning to your regular diet, If you have having persistent issues with tolerating your diet, please contact our office It is not unusual to have pain similar to your gallbladder symptoms for the first 1-2 weeks following surgery. If this persists beyond 2 weeks, contact the office. It is not unusual to have loose stools following surgery. This is usually self limited and related to the antibiotics that were given during your surgical procedure. Fiber supplementation and yogurt with active cultures may help you return to regular bowel activity. If you note loose stools persisting for over 2 weeks, or significant cramping or loose bloody stools, contact the office immediately. You may return to your regular activities. You may drive if you are no longer taking narcotic pain medication. You should perform no lifting greater than 25lbs for the next 2weeks. Contact the office immediately if any of your incisions become increasingly tender, red or have drainage. Again, if you have any difficulties or concerns, contact our office immediately. If you note any additional difficulties, questions, or concerns, you should contact our office immediately @ [phone] and ask to be transferred to the General Surgery department. documented in this encounter [facility] 10-18-2022 History of Presen t illness Narrative FOLLOW UP VISIT - CHOLECYSTECTOMY NAME: Traci Cooper Jr. CLINIC NO.: [id number] DATE OF SERVICE: 10/18/2022 : 1950 REFERRING PHYSICIAN: Sydney Julien MD Traci is a patient I am following with Dr. Ruth for acute gangrenous cholecystitis with obstruction. Dr. Ruth performed a laparoscopic cholecystectomy on 09/25/22. Pathology showed acute and chronic ulcerated and hemorrhagic cholecystitis and cholelithiais. The patient currently notes no complaints. his appetite has been good and he is tolerating food well. he denies fever, chills or abdominal pain. he does note some very minimal incisional discomfort. VITALS: Blood pressure 108/70, pulse 72, temperature 36.4 C (97.6 F), height 180.3 cm (5' 11 ), weight 90.3 kg (199 lb), SpO2 96 %. On examination, the abdomen is benign. The incisions are healing well without signs of infection or inflammation. Assessment IMPRESSION: status post laparoscopic cholecystectomy for acute gangrenous cholecystitis with obstruction PLAN: If the patient notes any problems, he should contact me immediately. he may return to his regular activities as tolerated, with the exception of no lifting greater than 25 pounds for the next 2 weeks. The patient is to contact me immediately is he experiences any of his preoperative symptoms. We discussed that occasional right up quadrant symptoms similar to the preoperative complaints can occur in the first couple of weeks post operatively. If this persists beyond the first 2-3 weeks, they should contact our office. 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 Margie Hill PA-C documented in this encounter [facility] 09-28-2022 History of Presen t illness Narrative FOLLOW UP VISIT NAME: Traci Cooper JrSyl CLINIC NO.: [id number] DATE OF SERVICE: 09/28/2022 : 1950 REFERRING PHYSICIAN: Sydney Julien MD Traci is status post laparoscopic cholecystectomy on 09/25/2022 at [facility]. He has minimal tenderness. Had TYLOR drain placed, here for removal. VITALS: Blood pressure 124/62, pulse 67, temperature 36.4 C (97.6 F), height 180.3 cm (5' 11 ), weight 90.3 kg (199 lb), SpO2 97 %. On examination, abdomen is soft and benign TYLOR output is serosanguinous, < 60 ml per day. TYLOR drain removed without difficulty. Patient to follow up with Margie next week. Assessment IMPRESSION: status post laparoscopic cholecystectomy PLAN: Follow up in clinic as above. Diagnoses: (Z90.49) Status post laparoscopic cholecystectomy (primary encounter diagnosis) I have confirmed and edited as necessary, the PFSH and ROS obtained by others. Shelbi Ruth MD documented in this encounter [facility] 09-28-2022 Nurse Note REVIEW OF SYSTEMS: General: The patient denies fatigue, denies weight loss, denies weight gain, denies feeling hot, and denies feelings of cold. Eyes: The patient denies glaucoma, denies eye injury/surgery, wears glasses or contacts. Ear/Nose/Throat: The patient denies allergies, denies hayfever, denies ear infections, and denies bloody noses. Cardiovascular: The patient denies chest pain, denies heart disease, notes high blood pressure,denies cardiac stent, denies prior heart attack, denies irregular heart beat, denies high cholesterol, denies poor circulation, denies heart failure, other cardiac issues, denies claudication, denies cold feet, denies peripheral arterial stent. Respiratory: The patient denies tuberculosis, denies pneumonia, denies frequent cough, denies pulmonary embolism, denies shortness of breath, and denies coughing up blood. Gastrointestinal: The patient denies difficulty swallowing, denies acid reflux, denies ulcers, denies vomiting, denies jaundice/hepatitis, denies gallbladder problems, denies black or tarry stools, denies hemorrhoids, denies bleeding from rectum, denies diverticulitis, notes constipation, denies diarrhea, denies loss of stool control, and denies hernias. Kidney/Bladder: The patient notes kidney stones, denies urine infections, and denies bloody urine. Skin: The patient denies a history of skin cancer, denies bleeding/changing moles, and denies a history of skin rash. Neurologic: The patient denies a history of epilepsy/convulsions, denies headaches, denies head/spinal injuries, and denies stroke/TIA. Psychiatric: The patient denies psychiatric medications, denies depression, and denies voices, denies substance abuse. Endocrine: The patient denies thyroid disorders, denies diabetes, and denies hormonal problems. Hematologic: The patient denies a history of bruising, denies bleeding, and denies anemia, denies blood clots. Infections: The patient denies a history of measles and mumps, denies rheumatic fever, and denies sexually transmitted diseases. Musculoskeletal: The patient denies back pain/injury, denies back problems, denies sciatica, denies knee/foot trouble, denies arthritis, or notes gout. When was patient's last Mammogram screening? N/A Last Colonoscopy: none Kim Pion LPN documented in this encounter [facility] 09-15-2022 History of Presen t illness Narrative POPULATION HEALTH NAVIGATION OUTREACH Action/FYI [facility] ANNUAL MEDICARE WELLNESS COLORECTAL CANCER SCREENING due on 11/30/2018 Pt identified by name and : YES, via phone Outreach Outcome/Action Unable to reach patient: Left message Did you use a PCP flex slot to schedule this appointment? N/A Reason for Outreach Care Gap or Scheduling/Wellness visits Payer: Payor: MEDICARE / Plan: MEDICARE A AND B / Product Type: Medicare / Care Gap Reviewed:: Annual Wellness visit Colorectal Cancer Screening Reminder: Reminder note to check Health Maintenance for items below Health Maintenance items due: COLORECTAL CANCER SCREENING due on 11/30/2018 Message Sent to Practice: No Navigation Signature: Edel Pugh MA September 15, 2022 10:19 AM documented in this encounter [facility] 08-19-2022 Miscellaneous Notes Placed call to patient with no answer. VM verified. Left message informing him of normal results. Advised him to call back with any questions or concerns. Radha Piña Attempted to contact patient to give him provider's message regarding recent lab results. Message left for patient to call PCP office for message below: (MESSAGE COPIED) Mamadou Wu PA-C 08/17/2022 3:51 AM EDT Back to Top Please advise labs look good Thanks, DEBBY Trevizo, RN documented in this encounter [facility] 08-15-2022 Instructions Mamadou Wu PA-C - 08/15/2022 9:30 AM EDT Please schedule dental visit due to gum disease and cardiovascular risk. Please check state of [place] coverage for hearings in workers. documented in this encounter [facility] 08-15-2022 History of Presen t illness Narrative 72 year old male with c/o here for routine follow up Essential hypertension (primary encounter diagnosis) Tia (transient ischemic attack) Hyperlipidemia, unspecified hyperlipidemia type Bilateral carotid artery stenosis Cardiovascular interval hx: 05/31/2021 carotid US: RIGHT: ICA 20-39%, VA patent with antegrade, SCA no significant stenosis; LEFT: CCA no significant stenosis, ICA 20-39%, VA patent w/ antegrade Current meds: Amlodipine 10mg daily Atenolol 25mg daily Triamterene/HCTZ 75-50mg daily ASA 81mg daily Use of NTG: N/A Chest pain, arm, jaw pain, neck, or upper back pain suggestive of angina: No. SOB: No Dyspnea with exertion: No orthopnea: No Cough : No racing or irregular heartbeats: No palpitations: No syncopal sx: No Headache: No Unexplainable fatigue No Leg swelling: No Nausea: No diaphoresis: No Heartburn: No Claudication: No Smoking: No Following Low cholesterol, high fiber diet? No If on statin: muscle aches? No If on statin: GI sx or diarrhea? No Additional history none. Lab review: Component Latest Ref Rng & Units 05/06/2021 02/09/2022 Cholesterol, Total <200 mg/dL 169 169 Triglyceride <150 mg/dL 77 139 HDL Cholesterol >39 mg/dL 47 44 LDL Cholesterol <100 mg/dL 107 (H) 97 Non HDL Cholesterol <130 mg/dL 122 125 Fasting Time hrs 12 12 VLDL Cholesterol <30 mg/dL 15 28 TC:HDL Ratio <5.10 3.60 3.84 LDL:HDL Ratio <2.54 2.28 2.20 Parkinson's disease (hcc) Current medications: Carbidopa-levodopa 25-100mg three times a day Persistent tremor right arm/ hand About the same Denies falls in a long time Denies immobility issues Dr. Sade Beckman Hypothyroidism, acquired Thyroid nodule Current medication: Levothyroxine 50mcg daily AC Taking as directed on an empty stomach? Yes. Thyroid pain: No. Mass effect: No. Change in energy level/ fatigue? 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 Sleep disturbance ?only self induced. Temperature Intolerance: cold No, hot No. In females, menstrual cycle issues? N/a, If yes: Change in bowel habits? No. If yes: Constipation? Yes. If yes: a little, attributes to meds and not drinking water. Back teeth hsave degenerated. Diarrhea? No. If yes: Weight changes? weight loss intentional. . Memory issues: years ago smoked pot, had memory issues that have persisted, mostly pauses in names which he remembers later. . Diaphoresis: No. Numbness, tingling none Radiological imaging with contrast dyes within the last 3 months? No. History of radiation exposure to head or neck area? No. Change in hair or skin? No. If yes: Other symptoms: Last 2 Encounter Wt Readings: Date: Wt: 02/11/2022 94.8 kg (209 lb) 02/09/2022 96.2 kg (212 lb) Last thyroid labs: TSH Date Value 02/09/2022 3.100 mIU/L 05/06/2021 2.360 uU/mL 10/31/2019 2.770 uU/mL ) Fatty liver Component Latest Ref Rng & Units 05/06/2021 02/09/2022 Protein, Total 6.3 - 8.0 g/dL 7.9 7.8 Albumin 3.9 - 4.9 g/dL 4.8 4.8 Calcium 8.5 - 10.2 mg/dL 9.7 10.1 Bilirubin, Total 0.2 - 1.3 mg/dL 1.1 0.5 Alkaline Phosphatase 38 - 113 U/L 81 79 AST 14 - 40 U/L 25 21 Glucose 74 - 99 mg/dL 104 (H) 94 BUN 9 - 24 mg/dL 24 18 Creatinine 0.73 - 1.22 mg/dL 1.12 1.00 Sodium 136 - 144 mmol/L 136 140 Potassium 3.7 - 5.1 mmol/L 3.9 3.8 Chloride 97 - 105 mmol/L 98 99 CO2 22 - 30 mmol/L 27 30 Anion Gap 9 - 18 mmol/L 11 11 ALT 10 - 54 U/L 13 9 (L) eGFR- >60 eGFR-All Other Races . >60 eGFR >=60 mL/min/1.73m 79 Gout with manifestations No issues. Anxiety No issues currently Rem sleep behavior disorder Feels sleep is good except urinating 1-2 times a night Hearing disorder: Hasn't had evaluation HISTORIES FAMILY HISTORY Problem Relation Age of Onset Ischemic Heart Disease Mother 60 other (rheumatoid arthritis) Mother PAST MEDICAL HISTORY Diagnosis Date Gout History of TIAs 2006 negative workup. bp etiology Hypertension Personal history of kidney stones 2006 No past surgical history on file. Social History Tobacco Use Smoking status: Never Smokeless tobacco: Never Substance Use Topics Alcohol use: No Drug use: No ACTIVE PROBLEM LIST Unspecified Transient Cerebral Ischemia Hyperlipemia Calculus of Kidney Essential Hypertension Gout With Manifestations Calculus of Gallbladder Without Cholecystitis Without Obstruction Gallbladder Polyp Fatty Liver Posterior Vitreous Detachment of Left Eye Vitreous Floaters of Both Eyes Parkinson's Disease (Hcc) Anxiety Rem Sleep Behavior Disorder Hypothyroidism, Acquired Bilateral Carotid Artery Stenosis Thyroid Nodule Current Outpatient Medications Medication Sig Dispense Refill amLODIPine (NORVASC) 10 mg tablet Take 1 tablet by mouth once daily. 90 tablet 3 atenolol (TENORMIN) 25 mg tablet Take 1 tablet by mouth once daily. 90 tablet 3 aspirin, enteric coated (ADULT LOW DOSE ASPIRIN) 81 mg EC tablet Take 1 tablet by mouth once daily. 100 tablet 3 triamterene-hydroCHLOROthiazide (MAXZIDE) 75-50 mg per tablet Take 1 tablet by mouth once daily. 90 tablet 1 levothyroxine (SYNTHROID) 50 mcg tablet Take 1 tablet by mouth once daily. Take on empty stomach. For Thyroid. 90 tablet 3 carbidopa-levodopa (SINEMET 25-100) 25-100 mg per tablet Take 1 tablet by mouth three times daily. 270 tablet 3 naproxen sodium (ALEVE) 220 mg tablet Take 220 mg by mouth twice daily with meals. No current facility-administered medications for this visit. COVID-19 VACCINE(1) Never done DTAP,TDAP,TD(1 - Tdap) Never done SHINGRIX VACCINE(1 of 2) Never done COLORECTAL CANCER SCREENING due on 11/30/2018 DEPRESSION ASSESSMENT Never done INFLUENZA(1) due on 06/16/2022 EXAM: BP 122/64 Pulse 60 Resp 16 Wt 92.5 kg (204 lb) SpO2 97% BMI 28.45 kg/m Pleasant well noursished adult man in no acute distress. Alert and oriented all spheres. Normal affect and cognition. Speech normal. No deficits to learning or comprehension. Skin warm, dry, pink to lips and nailbeds. Normal turgor. Respirations regular and unlabored. HEENT: NCAT. No scleral icterus or conjunctival injection. TM's clear. Nose and oropharynx free from injection or lesion. Oral membranes moist and pink. No cervical lymph nodes. Thyroid non-tender, no masses, or enlargement. Carotids pulses 2+/4+ without bruits. No JVD with HOB at 30 degrees. Chest is normal shape. Lungs are clear to all ribera with good air exchange through out. HRRR without murmur or gallop. No lifts, heaves, or rubs. Extrem: no clubbing or cyanosis. Edema: none. Extremities are warm and pink with prompt capillary refill. ASSESSMENT/PLAN: 1. Essential hypertension - ICD9: 401.9, ICD10: I10 (primary diagnosis) - good control - Continue current medication(s) - Recommended regular aerobic exercise. - Recommend home blood pressure monitoring, to bring results in on next visit - Goal of BP <130/80 - TRIAMTERENE 75 MG-HYDROCHLOROTHIAZIDE 50 MG TABLET - CBC - COMP METABOLIC PANEL 2. TIA (transient ischemic attack) - ICD9: 435.9, ICD10: G45.9 No recent sx 3. Hyperlipidemia, unspecified hyperlipidemia type - ICD9: 272.4, ICD10: E78.5 - good control - Continue current medication. 4. Bilateral carotid artery stenosis - ICD9: 433.10, 433.30, ICD10: I65.23 Mild: recheck in 1 year 5. Parkinson's disease (HCC) - ICD9: 332.0, ICD10: G20 Persistent sx, but state stable, sees neurology 6. Hypothyroidism, acquired - ICD9: 244.9, ICD10: E03.9 - Instructed patient on importance of taking on an empty stomach either first thing in the morning or at bedtime. Weight increasing - Behavioral intervention 7. Thyroid nodule - ICD9: 241.0, ICD10: E04.1 Due for follow up - US THYROID/PARATHYROID 8. Fatty liver - ICD9: 571.8, ICD10: K76.0 Liver enzymes stable and not elevated 9. Gout with manifestations - ICD9: 274.89, ICD10: M10.9 None recent 10. Anxiety - ICD9: 300.00, ICD10: F41.9 Stable on no medication: not interested - DEPRESSION SCREENING/ASSESSMENT 11. REM sleep behavior disorder - ICD9: 327.42, ICD10: G47.52 Feels he is at baseline, up twice a night 12. Screening for colon cancer - ICD9: V76.51, ICD10: Z12.11 - FECAL OCCULT BLOOD TEST F/u 6 months and as needed Mamadou Wu PA-C documented in this encounter [facility] 05-09-2022 Miscellaneous Notes Pt reports he only has 1 Atenolol pill left. Patient has been identified by name and date of : Yes Patient phones for refill(s): Pending Prescriptions Disp Refills AMLODIPINE 10 MG TABLET 90 tablet 3 Sig: Take 1 tablet by mouth once daily. DAVID: No ATENOLOL 25 MG TABLET 90 tablet 3 Sig: Take 1 tablet by mouth once daily. DAVID: No ASPIRIN 81 MG TABLET,DELAYED RELEASE 100 tablet 3 Sig: Take 1 tablet by mouth once daily. DAVID: No TRIAMTERENE 75 MG-HYDROCHLOROTHIAZIDE 50 MG TABLET 90 tablet 1 Sig: Take 1 tablet by mouth once daily. DAVID: No LEVOTHYROXINE 50 MCG TABLET 90 tablet 3 Sig: Take 1 tablet by mouth once daily. Take on empty stomach. For Thyroid. DAVID: No Date of last office visit in primary care: 02/09/22 Future visit: 08/11/22 Last 2 Encounter Wt Readings: Date: Wt: 02/11/2022 94.8 kg (209 lb) 02/09/2022 96.2 kg (212 lb) Previous labs/tests for medication: Thyroid: TSH Date Value 02/09/2022 3.100 mIU/L 05/06/2021 2.360 uU/mL Blood Pressure: BUN (mg/dL) Date Value 02/09/2022 18 05/06/2021 24 Sodium (mmol/L) Date Value 02/09/2022 140 05/06/2021 136 Last 1 Encounter BP Readings: Date: BP: 04/26/2022 118/66 Potassium: No components found for: POT Please advise. Thank you. Margie Coffey RN documented in this encounter [facility] 04-26-2022 History of Presen t illness Narrative This note was created using NoteWriter. Subjective Traci Cooper Jr. is a 71 year old male. HPI Patient presents with pain in his right foot since last evening. He states he has gotten gout several times in this foot and this feels the same. No fevers or chills. No injury. He normally takes prednisone for the pain and that seems to help. He is not on any gout preventative. Review of Systems Musculoskeletal: Right foot pain PAST MEDICAL HISTORY Diagnosis Date Gout History of TIAs 2006 negative workup. bp etiology Hypertension Personal history of kidney stones 2005 Current Outpatient Medications Medication Sig Dispense Refill carbidopa-levodopa (SINEMET 25-100) 25-100 mg per tablet Take 1 tablet by mouth three times daily. 270 tablet 3 levothyroxine (SYNTHROID) 50 mcg tablet Take 1 tablet by mouth once daily. Take on empty stomach. For Thyroid. 90 tablet 3 triamterene-hydroCHLOROthiazide (MAXZIDE) 75-50 mg per tablet Take 1 tablet by mouth once daily. 90 tablet 1 aspirin, enteric coated (ADULT LOW DOSE ASPIRIN) 81 mg EC tablet Take 1 tablet by mouth once daily. 100 tablet 3 atenolol (TENORMIN) 25 mg tablet Take 1 tablet by mouth once daily. 90 tablet 3 amLODIPine (NORVASC) 10 mg tablet Take 1 tablet by mouth once daily. 90 tablet 3 naproxen sodium (ALEVE) 220 mg tablet Take 220 mg by mouth twice daily with meals. predniSONE (DELTASONE) 10 mg tablet Take 4 tabs daily for 3 days, then 2 tabs daily for 3 days, then 1 tab daily for 3 days with food. 21 tablet 0 Current Facility-Administered Medications Medication Dose Route Frequency Provider Last Rate Last Admin perflutren lipid microspheres 1.3 mL in NaCl (PF) 0.9% 10 mL injection (DEFINITY) INTRAVENOUS DIRECTED PRN Sydney Julien MD sodium chloride 0.9 % (flush) 10 mL (BD POSIFLUSH) 10 mL INTRAVENOUS DIRECTED PRN Sydney Julien MD No past surgical history on file. FAMILY HISTORY Problem Relation Age of Onset Ischemic Heart Disease Mother 60 other (rheumatoid arthritis) Mother Social History Tobacco Use Smoking status: Never Smoker Smokeless tobacco: Never Used Substance Use Topics Alcohol use: No Drug use: No Objective BP 118/66 Pulse 70 Temp 37.6 C (99.6 F) Resp 16 SpO2 95% Physical Exam Vitals reviewed. Constitutional: Appearance: Normal appearance. HENT: Head: Normocephalic and atraumatic. Musculoskeletal: Comments: Patient tender along the midfoot on the right. Minimal swelling. No significant redness. Pedal pulses 2+. Pain with range of motion. No open wounds or signs of cellulitis. Skin: General: Skin is warm and dry. Findings: No rash. Neurological: General: No focal deficit present. Mental Status: He is alert and oriented to person, place, and time. Assessment and Plan ASSESSMENT/PLAN: 1. Acute gout of right foot, unspecified cause - ICD9: 274.01, ICD10: M10.9 Patient has had gout several times, this is similar. Given prednisone for pain. Follow-up with PCP if not improving. Red flags for ER care discussed. Patient and agreeable with plan. Kim Warner PA-C documented in this encounter [facility] 04-26-2022 Miscellaneous Notes TC to pt, notified of provider response. Pt will come into Urgent Care. Jose Ramon Christie LPN Needs seen in office or urgent care. Pt called in and repots he is having a gout flare up in his R foot. Pt is asking if provider would call him in some Prednisone to [facility] in [place]. Please call and advise. Patient has been identified by name and date of : Yes Patient phones for refill(s): Pending Prescriptions Disp Refills PREDNISONE 10 MG TABLET 21 tablet 0 Sig: Take 4 tabs daily for 3 days, then 2 tabs daily for 3 days, then 1 tab daily for 3 days with food. DAVID: No Date of last office visit in primary care: 02/09/22 Future visit: 08/11/22 Last 2 Encounter Wt Readings: Date: Wt: 02/11/2022 94.8 kg (209 lb) 02/09/2022 96.2 kg (212 lb) Previous labs/tests for medication: Blood Pressure: BUN (mg/dL) Date Value 02/09/2022 18 05/06/2021 24 Sodium (mmol/L) Date Value 02/09/2022 140 05/06/2021 136 Last 1 Encounter BP Readings: Date: BP: 02/09/2022 128/70 Liver Function: ALT (U/L) Date Value 02/09/2022 9 05/06/2021 13 AST (U/L) Date Value 02/09/2022 21 05/06/2021 25 Please advise. Thank you. Margie Coffey RN documented in this encounter [facility] 02-11-2022 Instructions Sade Beckman APRN.SCHOOL STANDARDS COACH - 02/11/2022 8:27 AM EDT It was a pleasure to see you today. We addressed the following diagnoses: Parkinson's disease (hcc) (primary encounter diagnosis) Rem sleep behavior disorder Sialorrhea My recommendations are as follows: 02/11/2022 Visit: Parkinson's disease: Continue Sinemet three times daily REM Sleep Behavior Disorder: Please let me know if this worsens. Sialorrhea (drooling): You have been provided with a hand out on drooling. Please do not hesitate to let me know if you have any questions about anything you read. Movement Disorders Medication Schedule: 3am 2pm 8pm Sinemet 25/100 1 1 1 Return in about 6 months (around 08/13/2022). If there are any concerns before your next visit, please call or you can send a message through [employer]. You can also now schedule and select appointments through [employer]. Sade Beckman APRN.SCHOOL STANDARDS COACH From the Parkinson's Foundation: [email or web address] What Can I Do About Drooling? If you tend to drool, you probably don't have more saliva than you used to have; you are just not swallowing it as frequently or as automatically as before. Frequent sips of water or sucking on ice chips during the day can help you swallow more often. When you are not talking or eating, keep your head up, with your chin parallel to the floor and your lips closed. Sugar tends to produce more saliva in the mouth, so reducing sugar intake can be helpful. One trick is to suck on hard candy or chew gum, preferably sugarless. Candy and gum activate the jaw and the automatic swallowing reflex and can help clear saliva, providing temporary relief from drooling. Another tactic is to wear a sweatband on your wrist. This can be used to discreetly wipe the mouth as necessary and is a relatively inconspicuous accessory. If these lifestyle strategies are not effective, adjusting anti-PD medications may make it easier to swallow. There are also some other prescription medication options: Glycopyrrolate and other oral anticholinergic medications (trihexyphenidyl, benztropine, hycosamine): Oral anticholinergic medications, as a class, decrease the production of saliva. Usually this is perceived as a side effect (dry mouth), but in this case it is an advantage. Other anticholinergic side effects may be seen, including drowsiness, confusion, vomiting, dizziness, blurred vision, constipation, flushing, headache and urinary retention. Anticholinergics can also have mental side effects, so their use should be carefully considered. Scopolamine transdermal patch: This patch offers anticholinergic medicine that slows production of saliva as it is absorbed into the entire bloodstream. The side effects are similar to those seen with use of oral anticholinergic medications. 1% atropine eye drops (an anticholinergic): This treatment is given as 1 2 drops under the tongue per day to dry the mouth. Systemic side effects are much less likely with this local treatment. Botulinum toxin A: Botulinum toxin weakens muscles. Botulinum toxin A (Botox) is sometimes used to decrease saliva production for people who have issues with drooling; botulinum toxin B (Myobloc) is used to treat dystonia. Injection of botulinum toxin A into the salivary glands of the cheek and jaw can decrease production of saliva without (or with minimal) side effects, except for thickening of oral mucus secretion. Botox is not always effective, but when it works the benefit can last for several months before it wears off and re-injection is necessary. Botulinum toxin A can be an effective treatment for severe drooling but is more costly than other treatments, which your physician may want to try first. Botulinum toxin should probably be avoided when oral secretions are already very thick and difficult to clear. Botulinum toxin B causes dry mouth when used for dystonia, but it is not approved by the FDA for drooling. Many people with PD complain that they have a thick phlegm or mucus in the throat. Drinking more water will help thin this phlegm. Drinking carbonated beverages or tea with lemon may also help. Eating or drinking dairy products can make phlegm worse. documented in this encounter [facility] 02-11-2022 History of Presen t illness Narrative [facility] - FOLLOW UP EVALUATION Sydney Julien MD [id number] [facility] [id number] I had the pleasure of seeing Mr. Cooper for follow up today. He is a 71 year old right-handed male with Parkinson's disease since 2019. He is seen alone. Subjective Previous Plan-08/13/2021 Visit: Parkinson's disease: Continue Sinemet one tablet three times daily Exercise as you are able Interval History He still has a lot of tremor. He continues to work and though he wants to retire, he has worked there for 38 years and knows they rely on him so does not have any plans to do so as long as he can continue to do it without his Parkinson's disease interfering. Parkinson's Medication Schedule - as of the start of the visit: 3am 2pm 8pm Sinemet 25/100 1 1 1 Parkinson's Motor Complications Medication benefit onset: unclear Medication duration: unclear Wearing off: no Painful off-state dystonia: no Dyskinesia: no Prior Anti-Parkinson Therapies Carbidopa/Levodopa Tremors/Gait/Balance Shaking or tremors: Yes-it only interferes if he is trying to use barrera code or when playing the guitar. Otherwise, it is only at rest. Walking and balance problems: No Number of falls in the Last Month: No Gait freezing: No Autonomic/Pain Lightheadeness on standing: Yes: sometimes when he moves quickly Urinary problems: No Constipation problems: No Speech/Swallowing Speech problems: No Drooling: A little but not bothersome enough to treat Chewing and swallowing problems: No Sleep/Fatigue Problems sleeping at night: No except he does have to get up to go to the bathroom Daytime sleepiness: No Fatigue: Yes REM sleep behavior disorder: no Restless Legs Syndrome: no Mood/Behavior/Cognition Cognitive impairment: He said sometimes he has trouble finding the right word or will take some time to come up with a name or be able to finish his thoughts No Data Recorded Hallucinations and delusions: no Apathy: occasionally Depression: he gets down every once in a while Anxiety: No ICD: No PD Health Maintenance Exercise:Active but no structured exercise Routine Eye Exams: yes Routine Skin Exams: no ALLERGIES No Known Allergies Current Outpatient Medications Medication Sig carbidopa-levodopa (SINEMET 25-100) 25-100 mg per tablet Take 1 tablet by mouth three times daily. levothyroxine (SYNTHROID) 50 mcg tablet Take 1 tablet by mouth once daily. Take on empty stomach. For Thyroid. triamterene-hydroCHLOROthiazide (MAXZIDE) 75-50 mg per tablet Take 1 tablet by mouth once daily. aspirin, enteric coated (ADULT LOW DOSE ASPIRIN) 81 mg EC tablet Take 1 tablet by mouth once daily. atenolol (TENORMIN) 25 mg tablet Take 1 tablet by mouth once daily. amLODIPine (NORVASC) 10 mg tablet Take 1 tablet by mouth once daily. naproxen sodium (ALEVE) 220 mg tablet Take 220 mg by mouth twice daily with meals. Current Facility-Administered Medications Medication Dose Route Frequency perflutren lipid microspheres 1.3 mL in NaCl (PF) 0.9% 10 mL injection (DEFINITY) INTRAVENOUS DIRECTED PRN sodium chloride 0.9 % (flush) 10 mL (BD POSIFLUSH) 10 mL INTRAVENOUS DIRECTED PRN Objective Vital Signs: Ht 180.3 cm (5' 11 ) Wt 94.8 kg (209 lb) SpO2 96% BMI 29.15 kg/m Movement Disorders Scales Performed: MDS-UPDRS Motor subscale condition of exam Medication Off/On/Naiive ON Time of UPDRS 0821 Time of Last Medication 0230 Last Medication Taken DBS Right N/A DBS Left N/A MDS-UPDRS Motor subscale scores Speech 1-Slight. Loss of modulation, diction or volume, but still all words easy to understand. Finger Taps Right 2-Mild. a) 3 to 5 interruptions during tapping, b) mild slowing, c) the amplitude decrements midway in the 10-tap sequence. Finger Taps Left 2-Mild. a) 3 to 5 interruptions during tapping, b) mild slowing, c) the amplitude decrements midway in the 10-tap sequence. Hand Movements Right 1-Slight. a) the regular rhythm is broken with one or two interruptions or hesitations of the movement, b) slight slowing, c) the amplitude decrements near the end of the task. Hand Movements Left 1-Slight. a) the regular rhythm is broken with one or two interruptions or hesitations of the movement, b) slight slowing, c) the amplitude decrements near the end of the task. Arm Movements Right 3-Moderate. a) more than 5 interruptions during the movement or at least one longer arrest (freeze) in ongoing movement, b) moderate slowing, c) the amplitude decrements starting after the 1st supination-pronation sequence. Arm Movements Left 1-Slight. a) the regular rhythm is broken with one or two interruptions or hesitations of the movement, b) slight slowing, c) the amplitude decrements near the end of the sequence. Toe Taps Right 1-Slight. a) the regular rhythm is broken with one or two interruptions or hesitations of the tapping movement, b) slight slowing, c) the amplitude decrements near the end of the ten taps. Toe Taps Left 2-Mild. a) 3 to 5 interruptions during the tapping movements, b) mild slowing, c) the amplitude decrements midway in the task. Leg Agility Right 1-Slight. a) the regular rhythm is broken with one or two interruptions or hesitations of the movement, b) slight slowing, c) the amplitude decrements near the end of the task. Leg Agility Left 1-Slight. a) the regular rhythm is broken with one or two interruptions or hesitations of the movement, b) slight slowing, c) the amplitude decrements near the end of the task. Arise From Chair 0-Normal. No problems. Able to arise quickly without hesitation. Gait 1-Slight. Independent walking with minor gait impairment. Gait Freezing 0-Normal. No freezing. Posture Stability 1-Slight. 3-5 steps, but subject recovers unaided. Posture 2-Mild. Definite flexion, scoliosis or leaning to one side, but patient can correct posture to normal posture when asked to do so. Body Bradykinesia 1-Slight. Slight global slowness and poverty of spontaneous movements. Postural Tremor Hand Right 0-Normal. No tremor. Postural Tremor Hand Left 0-Normal. No tremor. Kinetic Tremor Right 0-Normal. No tremor. Kinetic Tremor Left 0-Normal. No tremor. Rest Tremor Amplitude Right Upper Extremity 2-Mild. > 1 cm but < 3 cm in maximal amplitude. Rest Tremor Amplitude Left Upper Extremity 2-Mild. > 1 cm but < 3 cm in maximal amplitude. Rest Tremor Amplitude Right Lower Extremity 0-Normal. No tremor. Rest Tremor Amplitude Right Lower Extremity 0-Normal. No tremor. Rest Tremor Amplitude Lip/Jaw Rest Tremor Constancy 4-Severe. Tremor at rest is present > 75% of the entire examination period. Pertinent Studies 05/01/18 Brain MRI Impression: No acute intracranial findings. No intracranial mass or pathologic enhancement. Mild parenchymal volume loss and mild sequela of chronic microvascular ischemia. Assessment and Plan: Assessment Mr. Cooper is a right-handed 71 year old male with Parkinson's disease since 2019. His tremor is quite signifiant still and his exam does not look as good as it has in the past, but he is not interested in trying to increase the Sinemet again, adding medication, or learning about DBS. He feels that as long as he can function at work, he is ok. Since some of the worsening was more recent and more acute per his report, I did suggest he follow up wiith his primary care provider to make sure there is not anything else going on such as a UTI and he stated understanding. The following are the current problems noted and addressed during this visit: Parkinson's disease (hcc) (primary encounter diagnosis) Rem sleep behavior disorder Sialorrhea Plan 02/11/2022 Visit: Parkinson's disease: Continue Sinemet three times daily REM Sleep Behavior Disorder: Please let me know if this worsens. Sialorrhea (drooling): You have been provided with a hand out on drooling. Please do not hesitate to let me know if you have any questions about anything you read. Updated Parkinson's Medication Schedule: 3am 2pm 8pm Sinemet 25/100 1 1 1 Level of service : 75738 (20-29 min). Time spent 24 (8:11am-8:32am and 8:43am-8:46am) min on the day of service, which included preparing to see the patient, [id number] patient care, completing clinical documentation, obtaining and/or reviewing separately obtained history, performing a medically appropriate examination, counseling and educating the patient/family/caregiver and ordering medications, tests, or procedures. Sade Beckman APRN.SCHOOL STANDARDS COACH documented in this encounter [facility] 02-10-2022 Miscellaneous Notes Left detailed message on identifiable voice mail. ----- Message from Sydney Julien MD sent at 02/10/2022 9:51 AM EDT ----- Let him know his labs are ok. documented in this encounter [facility] 02-09-2022 Miscellaneous Notes Addended by: SYDNEY JULIEN on: 02/09/2022 08:43 AM Modules accepted: Orders documented in this encounter [facility] 02-09-2022 History of Presen t illness Narrative Patient presents with: Medicare Wellness Exam HPI: Patient presents today for office visit for follow up. /does not want a medicare wellness exam. Had had several gout issues. He attributes it to diet. He does not want meds to prevent it. Discussed that if it continues, we could consider stopping his diuretic. Still seeing neurology. He is happy with treatment. Tremor is stable. bp is well controlled. No chest pain or shortness of breath. Denies edema or dizziness. Remains on asa with his hx of tia. His thyroid feels stable. No loss of energy or changes. Due in the fall for repeat carotid and thyroid us. Could consider repeat us of gallbladder due to polyps. Had previously been referred to general surgery. He did not go. No current gi pain. Discussed that it would be worth considering repeating his us to make sure the polyp has not changed. Patient declines follow up. Aware of risks of not diagnosing a gall bladder malignancy MEDICATIONS: Current Outpatient Medications Medication Sig levothyroxine (SYNTHROID) 50 mcg tablet Take 1 tablet by mouth once daily. Take on empty stomach. For Thyroid. triamterene-hydroCHLOROthiazide (MAXZIDE) 75-50 mg per tablet Take 1 tablet by mouth once daily. carbidopa-levodopa (SINEMET 25-100) 25-100 mg per tablet Take 1 tablet by mouth three times daily. aspirin, enteric coated (ADULT LOW DOSE ASPIRIN) 81 mg EC tablet Take 1 tablet by mouth once daily. atenolol (TENORMIN) 25 mg tablet Take 1 tablet by mouth once daily. amLODIPine (NORVASC) 10 mg tablet Take 1 tablet by mouth once daily. naproxen sodium (ALEVE) 220 mg tablet Take 220 mg by mouth twice daily with meals. Current Facility-Administered Medications Medication Dose Route Frequency perflutren lipid microspheres 1.3 mL in NaCl (PF) 0.9% 10 mL injection (DEFINITY) INTRAVENOUS DIRECTED PRN sodium chloride 0.9 % (flush) 10 mL (BD POSIFLUSH) 10 mL INTRAVENOUS DIRECTED PRN ALLERGIES: ALLERGIES No Known Allergies PAST MEDICAL HISTORY Diagnosis Date Gout History of TIAs 2006 negative workup. bp etiology Hypertension Personal history of kidney stones 2005 No past surgical history on file. FAMILY HISTORY Problem Relation Age of Onset Ischemic Heart Disease Mother 60 other (rheumatoid arthritis) Mother Social History Tobacco Use Smoking status: Never Smoker Smokeless tobacco: Never Used Substance Use Topics Alcohol use: No Drug use: No Reviewed current medications, allergies, past medical history, surgical history, family history and social history today. REVIEW OF SYSTEMS All other reviewed and negative other than HPI. HEALTH MAINTENANCE: Reviewed health maintenance issues today and recommended the following in detail. COVID-19 VACCINE(1) Never done DTAP,TDAP,TD(1 - Tdap) Never done SHINGRIX VACCINE(1 of 2) Never done ADVANCE DIRECTIVE DISCUSSION-Discussed advanced planning with patient today. They have a DPOA/Living Will:No Chosen surrogate for decision maker:NA Blank DPOA/Living Will forms given:Yes Reminded patients to have copies of their forms brought into the office to have placed in their medical records. Questions were answered. VITALS: BP 128/70 Pulse 68 Resp 16 Ht 178 cm (5' 10.08 ) Wt 96.2 kg (212 lb) BMI 30.35 kg/m Last 4 Encounter Wt Readings: Date: Wt: 02/09/2022 96.2 kg (212 lb) 12/08/2021 97.5 kg (215 lb) 08/13/2021 96.6 kg (213 lb) 07/22/2021 96.2 kg (212 lb) PHYSICAL EXAMINATION: General appearance: Well appearing, alert, in no acute distress, well-hydrated, well nourished. Skin: Skin color, texture, turgor normal, no suspicious rashes or lesions Head: Normocephalic, no masses, lesions, tenderness or abnormalities Back: Normal exam Lungs: Lungs clear to auscultation. No wheezing, rhonchi, rales Heart: RRR without murmur, gallop, or rubs. No ectopy Abdomen: Normal abdominal exam, Abdomen soft, non-tender. Bowel sounds normal. No masses, organomegaly Extremities: No deformities, edema, skin discoloration, clubbing or cyanosis. Good capillary refill. Musculoskeletal: No joint swelling, deformity, or tenderness Peripheral pulses: Normal Neuro: Gait normal. Reflexes normal and symmetric. Sensation grossly intact., tremor at rest on right. ASSESSMENT/PLAN: 1. Parkinson's disease (HCC) - ICD9: 332.0, ICD10: G20 (primary diagnosis) - continue to see neurology. 2. Restless legs syndrome - ICD9: 333.94, ICD10: G25.81 - stable. 3. Essential hypertension - ICD9: 401.9, ICD10: I10 - good control - Continue current medication(s) - Goal of BP <130/80 - CBC + DIFF 4. Hyperlipidemia, unspecified hyperlipidemia type - ICD9: 272.4, ICD10: E78.5 - good control - Continue current medication. - COMP METABOLIC PANEL - LIPID PANEL BASIC 5. Gallbladder polyp - ICD9: 575.6, ICD10: K82.4 - declines follow up. Understands risks. 6. Hypothyroidism, acquired - ICD9: 244.9, ICD10: E03.9 - TSH BLD 7. Thyroid nodule - ICD9: 241.0, ICD10: E04.1 - recheck in the fall. 8. Gout with manifestations - ICD9: 274.89, ICD10: M10.9 - declines meds. 9. Bilateral carotid artery stenosis - ICD9: 433.10, 433.30, ICD10: I65.23 - as above. 10. Anxiety - ICD9: 300.00, ICD10: F41.9 - doing well. Sydney Julien RTO in six months and prn. documented in this encounter [facility] 02-03-2022 Miscellaneous Notes Pt. notified. Should be seen if possible. The following approved medication requests have been transmitted electronically. Signed Prescriptions Disp Refills predniSONE (DELTASONE) 20 mg tablet 10 tablet 0 Sig: Take 2 tablets by mouth once daily for 5 days. Authorizing Provider: Mamadou WU PA-C Pt calling and states having problem with right foot. States this is his gout flaring up. Pt states was given Prednisone in the past. Please advise. Okay to leave a message Rosemarie Stark LPN documented in this encounter [facility] 01-06-2022 History of Presen t illness Narrative POPULATION HEALTH NAVIGATION OUTREACH Action/FYI LVM Health Maintenance items due: ANNUAL MEDICARE WELLNESS EXAM BP CONTROLLED (<130/80) Never done INFLUENZA(1) due on 06/16/2021 ADVANCE DIRECTIVE DISCUSSION Never done Pt identified by name and : NO Outreach Outcome/Action Unable to reach patient: Left message Reason for Outreach Care Gap or Scheduling/Wellness visits Payer: Payor: MEDICARE / Plan: MEDICARE A AND B / Product Type: Medicare / Care Gap Reviewed:: Annual Wellness visit Controlling Blood Pressure Flu vaccine Reminder: Reminder note to check Health Maintenance for items below Health Maintenance items due: COVID-19 VACCINE(1) Never done BP CONTROLLED (<130/80) Never done DTAP,TDAP,TD(1 - Tdap) Never done SHINGRIX VACCINE(1 of 2) Never done INFLUENZA(1) due on 06/16/2021 ADVANCE DIRECTIVE DISCUSSION Never done Message Sent to Practice: No Navigation Signature: Edel Pugh MA January 06, 2022 7:41 AM documented in this encounter [facility] documented as of this encounter (statuses as of 02/11/2022) [facility] History of Past illness Narrative* Problem Noted Date Resolved Date Restless legs syndrome 08/21/2019 2 Essential hypertension, benign 12/22/2006 0 11/05/2007 documented as of this encounter (statuses as of 04/26/2022) [facility] History of Past illness Narrative* Problem Noted Date Resolved Date Restless legs syndrome 08/21/2019 2 Essential hypertension, benign 12/22/2006 0 11/05/2007 documented as of this encounter (statuses as of 05/09/2022) [facility] History of Past illness Narrative* Problem Noted Date Resolved Date Restless legs syndrome 08/21/2019 2 Essential hypertension, benign 12/22/2006 0 11/05/2007 documented as of this encounter (statuses as of 08/15/2022) [facility] History of Past illness Narrative* Problem Noted Date Resolved Date Restless legs syndrome 08/21/2019 2 Essential hypertension, benign 12/22/2006 0 11/05/2007 documented as of this encounter (statuses as of 08/19/2022) [facility] History of Past illness Narrative* Problem Noted Date Resolved Date Restless legs syndrome 08/21/2019 2 Essential hypertension, benign 12/22/2006 0 11/05/2007 documented as of this encounter (statuses as of 09/15/2022) [facility] History of Past illness Narrative* Problem Noted Date Resolved Date Restless legs syndrome 08/21/2019 2 Essential hypertension, benign 12/22/2006 0 11/05/2007 documented as of this encounter (statuses as of 09/28/2022) [facility] History of Past illness Narrative* Problem Noted Date Resolved Date Restless legs syndrome 08/21/2019 2 Essential hypertension, benign 12/22/2006 0 11/05/2007 documented as of this encounter (statuses as of 10/20/2022) [facility] History of Past illness Narrative* Problem Noted Date Resolved Date Restless legs syndrome 08/21/2019 2 Essential hypertension, benign 12/22/2006 0 11/05/2007 documented as of this encounter (statuses as of 10/31/2022) [facility] History of Past illness Narrative* Problem Noted Date Resolved Date Restless legs syndrome 08/21/2019 2 Essential hypertension, benign 12/22/2006 0 11/05/2007 documented as of this encounter (statuses as of 11/24/2022) [facility] History of Past illness Narrative* Problem Noted Date Resolved Date Restless legs syndrome 08/21/2019 2 Essential hypertension, benign 12/22/2006 0 11/05/2007 documented as of this encounter (statuses as of 12/27/2022) [facility] History of Past illness Narrative* Problem Noted Date Resolved Date Restless legs syndrome 08/21/2019 2 Essential hypertension, benign 12/22/2006 0 11/05/2007 documented as of this encounter (statuses as of 01/05/2023) [place] [address]-06-2019 History of Past illness Narrative* Problem Noted Date Resolved Date Restless legs syndrome 08/21/2019 2 Calculus of gallbladder with out cholecystitis without obstruction 11/30/2017 02/14/2023 Gallbladder polyp 11/30/2017 02/14/2023 Overview: Patient declines follow up. Aware of risks of not diagnosing a gall bladder malignancy Essential hypertension, benign 12/22/2006 0 11/05/2007 documented as of this encounter (statuses as of 02/14/2023) [address] History of Past illness Narrative* Problem Noted Date Resolved Date Restless legs syndrome 08/21/2019 2 Calculus of gallbladder with out cholecystitis without obstruction 11/30/2017 02/14/2023 Gallbladder polyp 11/30/2017 02/14/2023 Overview: Patient declines follow up. Aware of risks of not diagnosing a gall bladder malignancy Essential hypertension, benign 12/22/2006 0 11/05/2007 documented as of this encounter (statuses as of 02/20/2023) [facility] History of Past illness Narrative* Problem Noted Date Resolved Date Restless legs syndrome 08/21/2019 2 Calculus of gallbladder with out cholecystitis without obstruction 11/30/2017 02/14/2023 Gallbladder polyp 11/30/2017 02/14/2023 Overview: Patient declines follow up. Aware of risks of not diagnosing a gall bladder malignancy Essential hypertension, benign 12/22/2006 0 11/05/2007 documented as of this encounter (statuses as of 04/05/2023) [facility] History of Past illness Narrative* Problem Noted Date Resolved Date Restless legs syndrome 08/21/2019 2 Calculus of gallbladder with out cholecystitis without obstruction 11/30/2017 02/14/2023 Gallbladder polyp 11/30/2017 02/14/2023 Overview: Patient declines follow up. Aware of risks of not diagnosing a gall bladder malignancy Essential hypertension, benign 12/22/2006 0 11/05/2007 documented as of this encounter (statuses as of 04/21/2023) [facility] History of Past illness Narrative* Problem Noted Date Diagnosed Date Resolved Date Restless legs syndrome 08/21/201902/11 Calculus of gallbladder with out cholecystitis without obstruction 11/30/2017 02/14/2023 Gallbladder polyp 11/30/2017 02/14/2023 Overview: Patient declines follow up. Aware of risks of not diagnosing a gall bladder malignancy Essential hypertension, benign 12/22/2006 11/05/2007 documented as of this encounter (statuses as of 07/03/2023) [facility] History of Past illness Narrative* Problem Noted Date Diagnosed Date Resolved Date Restless legs syndrome 08/21/201902/11 Calculus of gallbladder with out cholecystitis without obstruction 11/30/2017 02/14/2023 Gallbladder polyp 11/30/2017 02/14/2023 Overview: Patient declines follow up. Aware of risks of not diagnosing a gall bladder malignancy Essential hypertension, benign 12/22/2006 11/05/2007 documented as of this encounter (statuses as of 07/19/2023) [facility] History of Past illness Narrative* Problem Noted Date Diagnosed Date Resolved Date Restless legs syndrome 08/21/201902/11 Calculus of gallbladder with out cholecystitis without obstruction 11/30/2017 02/14/2023 Gallbladder polyp 11/30/2017 02/14/2023 Overview: Patient declines follow up. Aware of risks of not diagnosing a gall bladder malignancy Essential hypertension, benign 12/22/2006 11/05/2007 documented as of this encounter (statuses as of 09/14/2023) [facility] History of Past illness Narrative* Problem Noted Date Resolved Date Essential hypertension, benign 12/22/2006 0 11/05/2007 documented as of this encounter (statuses as of 01/06/2022) [facility] History of Past illness Narrative* Problem Noted Date Resolved Date Essential hypertension, benign 12/22/2006 0 11/05/2007 documented as of this encounter (statuses as of 02/03/2022) [facility] History of Past illness Narrative* Problem Noted Date Resolved Date Essential hypertension, benign 12/22/2006 0 11/05/2007 documented as of this encounter (statuses as of 02/09/2022) [facility] History of Past illness Narrative* Problem Noted Date Resolved Date Essential hypertension, benign 12/22/2006 0 11/05/2007 documented as of this encounter (statuses as of 02/10/2022) [facility] of right ankle, unspecified cause [facility] Parkinson's disease (HCC)- Primary Paralysis agitans Restless legs syndrome Restless legs syndrome (RLS) Essential hypertension Unspecified essential hypertension Hyperlipidemia, unspecified hyperlipidemia type Gallbladder polyp Cholesterolosis of gallbladder Hypothyroidism, acquired Unspecified hypothyroidism Thyroid nodule Nontoxic uninodular goiter Gout with manifestations Gout with other specified manifestations Bilateral carotid artery stenosis Occlusion and stenosis of carotid artery without mention of cerebral infarction Anxiety Anxiety state, unspecified [facility] Parkinson's disease (HCC)- Primary Paralysis agitans REM sleep behavior disorder Sialorrhea Disturbance of salivary secretion [facility] Diagnosis Acute gout of right ankle, unspecified cause [facility] Diagnosis Acute gout of right foot, unspecified cause- Primary [facility] Diagnosis Essential hypertension Unspecified essential hypertension TIA (transient ischemic attack) Unspecified transient cerebral ischemia Hypothyroidism, acquired Unspecified hypothyroidism [facility] Diagnosis Essential hypertension- Primary Unspecified essential hypertension TIA (transient ischemic attack) Unspecified transient cerebral ischemia Hyperlipidemia, unspecified hyperlipidemia type Bilateral carotid artery stenosis Occlusion and stenosis of carotid artery without mention of cerebral infarction Parkinson's disease (HCC) Paralysis agitans Hypothyroidism, acquired Unspecified hypothyroidism Thyroid nodule Nontoxic uninodular goiter Fatty liver Other chronic nonalcoholic liver disease Gout with manifestations Gout with other specified manifestations Anxiety Anxiety state, unspecified REM sleep behavior disorder Screening for colon cancer Special screening for malignant neoplasms, colon [facility] Diagnosis Status post laparoscopic cholecystectomy- Primary Other postprocedural status [facility] Diagnosis 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- Primary Calculus of gallbladder with other cholecystitis and obstruction [facility] Diagnosis Acute idiopathic gout of multiple sites- Primary [facility] Diagnosis Parkinson's disease (HCC)- Primary Paralysis agitans [facility] Diagnosis Essential hypertension- Primary Unspecified essential hypertension Hyperlipidemia, unspecified hyperlipidemia type TIA (transient ischemic attack) Unspecified transient cerebral ischemia Bilateral carotid artery stenosis Occlusion and stenosis of carotid artery without mention of cerebral infarction Parkinson's disease (HCC) Paralysis agitans REM sleep behavior disorder Hypothyroidism, acquired Unspecified hypothyroidism Thyroid nodule Nontoxic uninodular goiter Anxiety Anxiety state, unspecified Gout with manifestations Gout with other specified manifestations Fatty liver Other chronic nonalcoholic liver disease [facility] Diagnosis Acute pain of right shoulder- Primary documented in [facility]* Diagnosis Hypothyroidism, acquired Unspecified hypothyroidism Essential hypertension Unspecified essential hypertension documented in this encounter [facility] note* Diagnosis Parkinson's disease without dyskinesia or fluctuating manifestations- Primary documented in this encounter [facility] for referral (narrative)* Diagnostic Procedure Only (Routine) - Authorized Specialty Diagnoses / Procedures [facility] To Contact [facility] IM[facility] Diagnoses Thyroid nodule Procedures US THYROID/PARATHYROID US SOFT TISSUE HEAD & NECK REAL TIME IMGE Mamadou Ruvalcaba PA-C [address] [place] [address] Us Imaging Referral ID Status Reason Start Date Expiration Date Visits Requested Visits Authorized [id number] Authorized Auto-Generat ed Referral 09/14/2023 1 1 [facility] for referral (narrative)* Diagnostic Procedure Only (Routine) - Authorized Specialty Diagnoses / Procedures Referred By [facility] t Referred To Contact US IMAGING Diagnoses Hypothyroidism, acquired Thyroid nodule Procedures US THYROID/PARATHYROID US SOFT TISSUE HEAD & NECK REAL TIME IMGE Mamadou Ruvalcaba PA-C [address] [place] [address] Us Imaging Referral ID Status Reason Start Date Expiration Date Visits Requested Visits Authorized [id number] Authorized Auto-Generat ed Referral 02/14/2023 03/15/2024 1 1 T [facility] Summary Purpose Family History No Family History Records Found Advance Directives No Advanced Directives Records Found Additional Source Comments Source Comments (unrecognize d section and content) In the event this informatio n is protected by the Federal Confidentiality of Alcohol and Drug Abuse Patient Records regulations: The Federal rules restrict any use of the information to criminally investigate or prosecute any alcohol or drug abuse patient.[facility] the event this information is protected by the Federal Confidentiality of Alcohol and Drug Abuse Patient Records regulations: The Federal rules restrict any use of the information to criminally investigate or prosecute any alcohol or drug abuse patient.[facility] the event this information is protected by the Federal Confidentiality of Alcohol and Drug Abuse Patient Records regulations: The Federal rules restrict any use of the information to criminally investigate or prosecute any alcohol or drug abuse patient.[facility] the event this information is protected by the Federal Confidentiality of Alcohol and Drug Abuse Patient Records regulations: The Federal rules restrict any use of the information to criminally investigate or prosecute any alcohol or drug abuse patient.[facility] the event this information is protected by the Federal Confidentiality of Alcohol and Drug Abuse Patient Records regulations: The Federal rules restrict any use of the information to criminally investigate or prosecute any alcohol or drug abuse patient.[facility] the event this information is protected by the Federal Confidentiality of Alcohol and Drug Abuse Patient Records regulations: The Federal rules restrict any use of the information to criminally investigate or prosecute any alcohol or drug abuse patient.[facility] the event this information is protected by the Federal Confidentiality of Alcohol and Drug Abuse Patient Records regulations: The Federal rules restrict any use of the information to criminally investigate or prosecute any alcohol or drug abuse patient.[facility] the event this information is protected by the Federal Confidentiality of Alcohol and Drug Abuse Patient Records regulations: The Federal rules restrict any use of the information to criminally investigate or prosecute any alcohol or drug abuse patient.[facility] the event this information is protected by the Federal Confidentiality of Alcohol and Drug Abuse Patient Records regulations: The Federal rules restrict any use of the information to criminally investigate or prosecute any alcohol or drug abuse patient.[facility] the event this information is protected by the Federal Confidentiality of Alcohol and Drug Abuse Patient Records regulations: The Federal rules restrict any use of the information to criminally investigate or prosecute any alcohol or drug abuse patient.[facility] the event this information is protected by the Federal Confidentiality of Alcohol and Drug Abuse Patient Records regulations: The Federal rules restrict any use of the information to criminally investigate or prosecute any alcohol or drug abuse patient.[facility] the event this information is protected by the Federal Confidentiality of Alcohol and Drug Abuse Patient Records regulations: The Federal rules restrict any use of the information to criminally investigate or prosecute any alcohol or drug abuse patient.[facility] the event this information is protected by the Federal Confidentiality of Alcohol and Drug Abuse Patient Records regulations: The Federal rules restrict any use of the information to criminally investigate or prosecute any alcohol or drug abuse patient.[facility] the event this information is protected by the Federal Confidentiality of Alcohol and Drug Abuse Patient Records regulations: The Federal rules restrict any use of the information to criminally investigate or prosecute any alcohol or drug abuse patient.[facility] the event this information is protected by the Federal Confidentiality of Alcohol and Drug Abuse Patient Records regulations: The Federal rules restrict any use of the information to criminally investigate or prosecute any alcohol or drug abuse patient.[facility] the event this information is protected by the Federal Confidentiality of Alcohol and Drug Abuse Patient Records regulations: The Federal rules restrict any use of the information to criminally investigate or prosecute any alcohol or drug abuse patient.[facility] the event this information is protected by the Federal Confidentiality of Alcohol and Drug Abuse Patient Records regulations: The Federal rules restrict any use of the information to criminally investigate or prosecute any alcohol or drug abuse patient.[facility] the event this information is protected by the Federal Confidentiality of Alcohol and Drug Abuse Patient Records regulations: The Federal rules restrict any use of the information to criminally investigate or prosecute any alcohol or drug abuse patient.[facility] Hospital[facility] the event this information is protected by the Federal Confidentiality of Alcohol and Drug Abuse Patient Records regulations: The Federal rules restrict any use of the information to criminally investigate or prosecute any alcohol or drug abuse patient.[facility] Hospital[facility] the event this information is protected by the Federal Confidentiality of Alcohol and Drug Abuse Patient Records regulations: The Federal rules restrict any use of the information to criminally investigate or prosecute any alcohol or drug abuse patient.[facility] Hospital[facility] the event this information is protected by the Federal Confidentiality of Alcohol and Drug Abuse Patient Records regulations: The Federal rules restrict any use of the information to criminally investigate or prosecute any alcohol or drug abuse patient.[facility] the event this information is protected by the Federal Confidentiality of Alcohol and Drug Abuse Patient Records regulations: The Federal rules restrict any use of the information to criminally investigate or prosecute any alcohol or drug abuse patient.[facility] the event this information is protected by the Federal Confidentiality of Alcohol and Drug Abuse Patient Records regulations: The Federal rules restrict any use of the information to criminally investigate or prosecute any alcohol or drug abuse patient.[facility] the event this information is protected by the Federal Confidentiality of Alcohol and Drug Abuse Patient Records regulations: The Federal rules restrict any use of the information to criminally investigate or prosecute any alcohol or drug abuse patient.[facility] Reason for Visit (unrecogniz ed section and content) Reason Comments requesting prescription gout Reason Comments Medicare Wellness Exam Reason Comments Results Reason Comments Follow Up Reason Comments Patient Update Medication Request Reason Comments Pain (foot) right x last night Reason Onset Date Comments Refill Request 05/09/2022 Reason Comments 6 Month Exam Reason Comments lab results Reason Onset Date Comments [facility] Navigation Outreach 09/15/2022 [facility] RUBY PCSA Reason Comments Follow Up Laparoscopy cholecys tectomy Reason Comments Follow Up Gallbladder surgery Reason Onset Date Comments [facility] Navigation Outreach 10/31/2022 [facility] RUBY PCSA Reason Comments Gout Left foot, left knee , 3 days Reason Comments Parkinson's Disease Reason Onset Date Comments [facility] Outreach 01/05/2023 ACO Care Gaps Reason Comments ER F/U [facility] ER 03/29 dx:fall, R arm pain Specialty Diagnoses / Procedures Referred By Contac t Referred To Contact Family Medicine / FAMILY MEDICINE Diagnoses ER follow up right arm injury WC Procedures 4C EST HOSP/ER FU Adrian Camara MD [address] [place] [address] Manuela Pham APRN.[employer] [address] [place] [address] Referral ID Status Reason Start Date Expiration Date Visits Requested Visits Authorized [id number] Pending Review Clearance Not Met -Financial Clearance Bypassed 04/04/2023 04/04/2024 1 1 Reason Comments Workers Comp questions Reason Onset Date Comments Refill Request 07/03/2023 Reason Comments Forms Care Teams (unrecognized sec tion and content) Straddle Carrier Operator Relationship Specialty Start Date End Date Sydney Julien MD [address] [place] [address] PCP - General Family Practice 11/05/12 Straddle Carrier Operator Relationship Specialty Start Date End Date Sydney Julien MD [address] [place] [address] PCP - General Family Practice 11/05/12 Straddle Carrier Operator Relationship Specialty Start Date End Date Sydney Julien MD [address] [place] [address] PCP - General Family Practice 11/05/12 Straddle Carrier Operator Relationship Specialty Start Date End Date Sydney Julien MD [address] [place] [address] PCP - General Family Practice 11/05/12 Straddle Carrier Operator Relationship Specialty Start Date End Date Sydney Julien MD [address] [place] [address] PCP - General Family Practice 11/05/12 Straddle Carrier Operator Relationship Specialty Start Date End Date Sydney Julien MD [address] [place] [address] PCP - General Family Practice 11/05/12 Straddle Carrier Operator Relationship Specialty Start Date End Date Sydney Julien MD [address] [place] [address] PCP - General Family Medicine 11/05/12 Straddle Carrier Operator Relationship Specialty Start Date End Date Sydney Julien MD [address] [place] [address] PCP - General Family Medicine 11/05/12 Straddle Carrier Operator Relationship Specialty Start Date End Date Sydney Julien MD [address] [place] [address] PCP - General Family Medicine 11/05/12 Straddle Carrier Operator Relationship Specialty Start Date End Date Sydney Julien MD [address] [place] [address] PCP - General Family Medicine 11/05/12 Straddle Carrier Operator Relationship Specialty Start Date End Date Sydney Julien MD [address] [place] [address] PCP - General Family Medicine 11/05/12 Straddle Carrier Operator Relationship Specialty Start Date End Date Sydney Julien MD [address] [place] [address] PCP - General Family Medicine 11/05/12 Straddle Carrier Operator Relationship Specialty Start Date End Date Sydney Julien MD [address] [place] [address] PCP - General Family Medicine 11/05/12 Straddle Carrier Operator Relationship Specialty Start Date End Date Sydney Julien MD [address] [place] [address] PCP - General Family Medicine 11/05/12 Straddle Carrier Operator Relationship Specialty Start Date End Date Sydney Julien MD [address] [place] [address] PCP - General Family Medicine 11/05/12 Straddle Carrier Operator Relationship Specialty Start Date End Date Sydney Julien MD [address] [place] [address] PCP - General Family Medicine 11/05/12 Straddle Carrier Operator Relationship Specialty Start Date End Date Sydney Julien MD [address] [place] [address] PCP - General Family Medicine 11/05/12 Straddle Carrier Operator Relationship Specialty Start Date End Date Sydney Julien MD [address] [place] [address] PCP - General Family Medicine 11/05/12 (unrecognized sect ion and content) No Status Records Found INFORMATION SOURCE (unrecogn ized section and content) FOR RECORDS PERTAINING TO PATIENTS WHO ARE OR HAVE BEEN ENROLLED IN A CHEMICAL DEPENDENCY/SUBSTANCEABUSE PROGRAM, SOME INFORMATION MAY BE OMITTED. This clinical summary was aggregated from multiple sources. Caution should be exercised in using it in the provision of clinical care. This summary normalizes information from multiple sources, and as a consequence, information in this document may materially change the coding, format and clinical context of patient data. In addition, data may be omitted in some cases. CLINICAL DECISIONS SHOULD BE BASED ON THE PRIMARY CLINICAL RECORDS. [facility] [employer] [facility]. provides no warranty or guarantee of the accuracy or completeness of information in this document.
[2023-10-19 12:20] LABS: D-Dimer Quantitative (DVT/PE) 0.44 FEU/ug/m (0.27-0.49)
[2023-10-19 12:57] LABS: Troponin-I HS 8 pg/mL (3.0-78.0)
[2023-10-19] MEDS: 0.9% Normal Saline (1000mL) 1,000 ML 100 ML IV (13:20)
[2023-10-19] MEDS: Atenolol 25 MG Tablet PO (13:20)
[2023-10-19] MEDS: Aspirin E.C. 81 MG Tablet PO (13:20)
[2023-10-19] MEDS: Carbidopa/Levodopa 25/100 Tablet PO ×2 (13:24→21:54)
[2023-10-19] MEDS: APIXABAN 5 MG TABLET PO (13:25)
[2023-10-19] MEDS: LORazepam 2 MG/ML Syringe 1 MG IV (13:52)
[2023-10-19 14:15] LABS: Troponin-I HS 8 pg/mL (3.0-78.0)
[2023-10-19] MEDS: Ceftriaxone 1 GM/50 ML BAG IV (17:35)
[2023-10-19 18:46] LABS: Troponin-I HS 11 pg/mL (3.0-78.0)
[2023-10-19] MEDS: Atorvastatin Calcium 80 MG Tablet PO (21:54)
[2023-10-20] VITALS (9 sets, daily range): BP systolic 113–139; BP diastolic 57–88; PULSE 64–79; RESP 15–18; TEMP 36–36.8; O2SAT 93–100; BMI 27.4
[2023-10-20] MEDS: 0.9% Normal Saline (1000mL) 1,000 ML 100 ML IV (00:36)
[2023-10-20] MEDS: APIXABAN 5 MG TABLET PO ×3 (00:36→21:25)
[2023-10-20] MEDS: Carbidopa/Levodopa 25/100 Tablet PO ×3 (05:04→21:25)
[2023-10-20] MEDS: Levothyroxine 50 MCG Tablet PO (05:04)
[2023-10-20 06:14] LABS: Absolute Lymphocyte Count 1.54 X10^3/uL (0.83-4.51); Absolute Neutrophil Count 6.3 X10^3/uL (2.0-7.7); Basophil# 0.07 X10^3/uL; Basophil% 0.8 % (0-1); Eosinophils% 1.1 % (0-5); Hematocrit 41.6 % (40-54); Hemoglobin 13.7 g/dL (13.0-16.5); Lymphocyte # 1.54 X10^3/ul (0.83-4.51); Mean Corp Hgb Conc 32.9 g/dL (32-36); Mean Corpuscular Hgb 27.3 pg (27.0-32.0); Mean Platelet Vol. 10.6 fl (6.2-12.0); NRBC Flagged by Analyzer 0 % (0-5); Neutrophil # 6.32 X10^3/uL (2.7-7.7); Neutrophil % 69.7 % (47-70); Platelet Count 179 K/mm3 (150-450); RBC Distribution Width CV 13.2 % (11.6-14.6); RBC Distribution Width SD 39.8 fl (35.1-43.9); Red Blood Count 5.01 M/mm3 (4.6-6.2); White Blood Count 9.1 K/mm3 (4.4-11.0)
[2023-10-20 06:41] LABS: Anion Gap 7 (5-15); BUN 20 mg/dL (7-18); BUN/Creat Ratio 19.4 RATIO (10-20); Calcium,Total 8.5 mg/dL (8.5-10.1); Chloride 105 mmol/L (98-107); Cholesterol 118 mg/dL (200); Creatinine, Serum 1.03 mg/dL (0.70-1.30); EST Glomerular Filtration Rate 75 mL/min (>60); Est Glom Filt Rate - Afr Amer 90 mL/min (>60); Glucose 97 mg/dL (74-106); High Density Lipoprotein 53 mg/dL; Magnesium 1.9 mg/dL (1.6-2.6); Phosphorus 2.4 mg/dL (2.5-4.9); Potassium 3.3 mmol/L (3.5-5.1); Sodium Level 139 mmol/L (136-145); Triglycerides 55 mg/dL; Very Low Density Lipoprotein 11 mg/dL (5-40)
--- NOTE | 2023-10-20 07:42 | PN.HOSP_ITS ---
Reason for Visit Reason for Visit: Diagnoses Transient cerebral ischemic attack, unspecified (10/19/23) Unspecified atrial fibrillation (10/19/23) Personal history of other diseases of the nervous system and sense organs () Subjective Subjective Patient is a 73-year-old gentleman presenting with speech difficulty. Initial initial head CT was unremarkable however subsequent MRI demonstrated acute lacunar infarct in the right cerebellum with mild chronic involutional and white matter changes. Objective Data Objective Data Vital Signs: Vital Signs Temp Pulse Resp BP Pulse Ox O2 Del Method 98 F 66 16 124/84 H 93 Room Air 10/20/23 05:37 10/20/23 05:37 10/20/23 05:37 10/20/23 05:37 10/20/23 05:37 10/20/23 05:37 Oxygen Delivery Method Room Air Weight: 89.4 kg Body Mass Index (BMI) 27.4 Intake & Output: Intake and Output for Last 24 Hours 10/18/23 10/19/23 10/20/23 23:59 23:59 23:59 Intake Total 1415.00 / 1655.00 1123.33 / 1123.33 Balance 1415.00 / 1655.00 1123.33 / 1123.33 Lab / Micro Data 10/20/23 05:50 10/20/23 05:50 Labs: Laboratory Results - last 24 hr 10/19/23 08:04: WBC 13.3 H, RBC 5.55, Hgb 15.4, Hct 45.9, MCV 82.7, MCH 27.7, MCHC 33.6, RDW Std Deviation 39.3, RDW Coeff of Navneet 13.2, Plt Count 227, MPV 11.0, Immature Gran % (Auto) 0.400, Neut % (Auto) 76.2 H, Lymph % (Auto) 12.7 L, [place] % (Auto) 9.0, Eos % (Auto) 0.8, Baso % (Auto) 0.9, Absolute Neuts (auto) 10.1 H, Absolute Lymphs (auto) 1.69, Nucleated RBC % 0, PT 13.0, INR 1.0, APTT 28.1, D-Dimer Quant (PE/DVT) 0.44, Sodium 141, Potassium 3.5, Chloride 103, Carbon Dioxide 29.0, Anion Gap 9, BUN 28 H, Creatinine 1.40 H, Estim Creat Clear Calc 48.56, Est GFR (MDRD) Af Amer 64, Est GFR (MDRD) Non-Af 52 L, BUN/Creatinine Ratio 20.0, Glucose 112 H, Calcium 9.4, TSH 2.88 10/19/23 08:40: Urine Color YELLOW, Urine Clarity Clear, Urine pH 6.0, Ur Specific [place] 1.020, Urine Protein Negative, Urine Glucose (UA) Normal, Urine Ketones Negative, Urine Occult Blood 50 H, Urine Nitrite Negative, Urine Bilirubin Negative, Urine Urobilinogen 1 H, Ur Leukocyte Esterase Negative, Urine RBC 10-25 SEEN, Urine WBC 10-25 SEEN, Ur Squamous Epith Cells 0 SEEN, Urine Bacteria 0 SEEN, Urine Mucus 0 SEEN 10/19/23 12:18: Troponin I High Sens 8 10/19/23 13:46: Troponin I High Sens 8 10/19/23 17:52: Troponin I High Sens 11 10/20/23 05:50: WBC 9.1, RBC 5.01, Hgb 13.7, Hct 41.6, MCV 83.0, MCH 27.3, MCHC 32.9, RDW Std Deviation 39.8, RDW Coeff of Navneet 13.2, Plt Count 179, MPV 10.6, Immature Gran % (Auto) 0.400, Neut % (Auto) 69.7, Lymph % (Auto) 17.0 L, [place] % (Auto) 11.0 H, Eos % (Auto) 1.1, Baso % (Auto) 0.8, Absolute Neuts (auto) 6.3, Absolute Lymphs (auto) 1.54, Nucleated RBC % 0, Sodium 139, Potassium 3.3 L, Chloride 105, Carbon Dioxide 27.0, Anion Gap 7, BUN 20 H, Creatinine 1.03, Estim Creat Clear Calc 66.00, Est GFR (MDRD) Af Amer 90, Est GFR (MDRD) Non-Af 75, BUN/Creatinine Ratio 19.4, Glucose 97, Calcium 8.5, Phosphorus 2.4 L, Magnesium 1.9, Triglycerides 55, Cholesterol 118, LDL Cholesterol 54, VLDL Cholesterol 11, HDL Cholesterol 53 Radiography Diagnostic Testing: Radiology Impression Brain CT 10/19/23 08:07 IMPRESSION: No acute intracranial process identified. Chronic involutional and white matter changes. Electronically Signed: Carmencita Al MD at 8:43 EST Reading Location ID and State: [address] [place] [address] Tel , Service support , Chest X-Ray 10/19/23 08:25 IMPRESSION: No acute cardiopulmonary process identified. Electronically Signed: Carmencita Al MD at 8:49 EST Reading Location ID and State: [facility] / [place] Tel , Service support , Brain MRI 10/19/23 10:13 IMPRESSION: Acute lacunar infarct in the right cerebellum. Mild chronic involutional and white matter changes. Electronically Signed: Carmencita Al MD at 15:16 EST Reading Location ID and State: [address] [place] [address] Tel , Service support , ADDENDUM: 10/19/23 1538 IMPRESSION: Acute lacunar infarct in the right cerebellum. Mild chronic involutional and white matter changes. N.B. : Cheko Huitron OT, confirmed on 10/19/2023 15:31:13 (ET) that the healthcare facility has received the radiology report. Electronically Signed: Carmencita Al MD at 15:16 EST Reading Location ID and State: [facility] / [place] Tel , Service support , Echocardiogram 10/19/23 10:13 Interpretation Summary Normal LV size. Left ventricular systolic function is normal. The estimated ejection fraction is 60 %. Bubble contrast study negative for right to left interatrial shunt. Stage 1 diastolic dysfunction. Ordering Physician: Jonah Calix Referring Physician: SYDNEY HUNT Performed By: Kate Arzate RDCS Head/Neck CTA 10/19/23 10:13 IMPRESSION: No evidence for significant stenosis or occlusion in the carotid or vertebral arteries of the neck. Multinodular thyroid goiter. No evidence for large vessel occlusion in the [place] region. Electronically Signed: Carmencita Al MD at 11:18 EST Reading Location ID and State: [facility] / [place] Tel , Service support , Rhythm Strip Rhythm Strip: A-fib Rate: 113 Ectopy: None Physical Exam Narrative GENERAL: cooperative HEENT: Atraumatic; normocephalic EYES; Anicteric, Normal Conjunctiva NECK; supple, normal thyroid, RESPIRATORY: Diminished to auscultation CARDIOVASCULAR: Irregular S1-S2 GI: soft, normoactive bowel sounds, : No Renal angle tenderness; EXTREMITIES: No edema, no clubbing, MUSCULOSKELETAL: no muscle wasting NEURO: Awake; no lateralizing signs. SKIN: No Rash PSYCH; Flat affect Assessment & Plan Assessment/Plan (1) Brain TIA: (2) Atrial fibrillation: (3) History of Parkinson's disease: PLAN: Plan Patient is a 73-year-old gentleman presenting with speech difficulty 1. Acute CVA ? Patient presented with speech difficulty. Initial initial head CT was unremarkable however subsequent MRI demonstrated acute lacunar infarct in the right cerebellum with mild chronic involutional and white matter changes. Patient started on dual antiplatelet therapy with consultation placed to neurology. As part of his management ordered CT angio, and 2D echo. Also ordered PT/OT/ST 2. Parkinson's disease I did continue patient antihypertensive medication 3. A-fib ? Patient does not have any history of previous A-fib was found to be in A-fib on admission. Admitted to telemetry for continuous monitoring. Started on low- dose antiplatelet therapy 4. Hypertension - Blood pressure controlled, home medications continued with dose adjustment as needed 5. Acute kidney injury ? Patient creatinine from 09/25/2022 was 1.15, creatinine on admission was 1.40 started on IV fluid with subsequent monitoring of electrolytes ordered 6. Hypothyroidism - Patient is on levothyroxine home dose continued 7. DVT prophylaxis ? Started on apixaban for his A-fib 8. Hypokalemia -Corrected per protocol, repeat labs ordered for monitoring 9. Acute cystitis ? Patient started on ceftriaxone urine culture sent Time spent in the patient's overall evaluation,decision-making process, review of diagnostic data, adjustment of management, discussion with other providers, nursing nursing and ancillary staff involved in patient's care documentation, 50 Minutes Charges/Coding Visit Charges Inpatient E&M: 67861 Subs Hosp L3
[2023-10-20] MEDS: Atenolol 25 MG Tablet PO ×2 (09:44→21:25)
[2023-10-20] MEDS: Aspirin E.C. 81 MG Tablet PO (09:45)
[2023-10-20] MEDS: amLODIPine 10 MG Tablet PO (09:47)
[2023-10-20] MEDS: Ceftriaxone 1 GM/50 ML BAG IV (09:53)
--- NOTE | 2023-10-20 11:26 | PCM.CONS.C ---
Assessment & Plan Assessment/Plan (1) Atrial fibrillation: PLAN: Started on apixaban for prevention of thromboembolic phenomenon. Change atenolol to 25 mg twice daily. (2) HTN (hypertension): PLAN: Beta-blockers, triamterene hydrochlorothiazide. Decrease amlodipine. Start on ROSY inhibitor. (3) Acute CVA (cerebrovascular accident): PLAN: As per neurology/internal medicine. (4) History of Parkinson's disease: PLAN: Plan Follow-up as outpatient in 4 to 6 weeks time. HPI Consult Data Date of Consult: 10/20/23 HPI Narrative Reason for Consultation: Atrial fibrillation HPI Narrative: This gentleman has past medical history significant for Parkinson's disease and hypertension. He presented to the hospital with complaints of dysarthria. He has since been diagnosed with acute cerebellar infarct. On presentation, patient was also noted to be in atrial fibrillation. This is a new diagnosis for him. Denies any previous history of heart disease. No palpitations. No orthopnea. No PND. Denies any shortness of breath. No chest pains. Denies any ankle edema. [facility] Medical History (Updated 10/20/23 @ 11:[address] Bryant Loredo MD) HTN (hypertension) Hypothyroid Parkinson disease Home Medications amlodipine 10 mg tablet 10 tab PO DAILY 04/19/22 [History Last Taken 10/19/23] aspirin 81 mg tablet,delayed release 81 tab PO DAILY 04/19/22 [History Last Taken 10/19/23] atenolol 25 mg tablet 25 tab PO DAILY 04/19/22 [History Last Taken Unknown] carbidopa 25 mg-levodopa 100 mg tablet 1 tab PO TID 04/19/22 [History Last Taken 10/19/23] levothyroxine 50 mcg tablet 50 mcg PO DAILY 04/19/22 [History Last Taken 10/19/23] triamterene 75 mg-hydrochlorothiazide 50 mg tablet 1 tab PO DAILY 04/19/22 [History Last Taken Unknown] Allergy/AdvReac Type Severity Reaction Status Date / Time No Known Allergies Allergy Verified 10/19/23 08:01 Surgical History Status post laparoscopic cholecystectomy Social History Smoking Status: Former smoker Physical Exam Narrative Bilateral upper extremity tremor. Comfortable. No apparent distress. Heart sounds 1 and 2 noted. Chest clear to auscultation bilaterally. Alert oriented x 3. No ankle edema. Risk Stratification Risk Stratification Applicable: No Objective Data Vital Signs: Vital Signs Temp Pulse Resp BP Pulse Ox O2 Del Method 98.1 F 79 18 137/79 H 95 Room Air 10/20/23 09:35 10/20/23 09:35 10/20/23 09:35 10/20/23 09:35 10/20/23 09:35 10/20/23 09:35 Oxygen Delivery Method Room Air Weight: 196 lb 3.382 oz Body Mass Index (BMI) 27.4 Intake & Output: Intake and Output for Last 24 Hours 10/18/23 10/19/23 10/20/23 23:59 23:59 23:59 Intake Total 1415.00 / 1655.00 2113.33 / 2113.33 Balance 1415.00 / 1655.00 2113.33 / 2113.33 Lab / Micro Data 10/20/23 05:50 10/20/23 05:50 Labs: Laboratory Results - last 24 hr 10/19/23 08:04: D-Dimer Quant (PE/DVT) 0.44 10/19/23 12:18: Troponin I High Sens 8 10/19/23 13:46: Troponin I High Sens 8 10/19/23 17:52: Troponin I High Sens 11 10/20/23 05:50: WBC 9.1, RBC 5.01, Hgb 13.7, Hct 41.6, MCV 83.0, MCH 27.3, MCHC 32.9, RDW Std Deviation 39.8, RDW Coeff of Navneet 13.2, Plt Count 179, MPV 10.6, Immature Gran % (Auto) 0.400, Neut % (Auto) 69.7, Lymph % (Auto) 17.0 L, [place] % (Auto) 11.0 H, Eos % (Auto) 1.1, Baso % (Auto) 0.8, Absolute Neuts (auto) 6.3, Absolute Lymphs (auto) 1.54, Nucleated RBC % 0, Sodium 139, Potassium 3.3 L, Chloride 105, Carbon Dioxide 27.0, Anion Gap 7, BUN 20 H, Creatinine 1.03, Estim Creat Clear Calc 66.00, Est GFR (MDRD) Af Amer 90, Est GFR (MDRD) Non-Af 75, BUN/Creatinine Ratio 19.4, Glucose 97, Calcium 8.5, Phosphorus 2.4 L, Magnesium 1.9, Triglycerides 55, Cholesterol 118, LDL Cholesterol 54, VLDL Cholesterol 11, HDL Cholesterol 53 Rhythm Strip Rhythm Strip: A-fib Rate: 113 Ectopy: None Cardiology Labs/Tests 10/19/23 08:04: D-Dimer Quant (PE/DVT) 0.44 10/20/23 05:50: WBC 9.1, RBC 5.01, Hgb 13.7, Hct 41.6, MCV 83.0, MCH 27.3, MCHC 32.9, Plt Count 179, MPV 10.6, Immature Gran % (Auto) 0.400, Neut % (Auto) 69.7, Lymph % (Auto) 17.0 L, [place] % (Auto) 11.0 H, Eos % (Auto) 1.1, Baso % (Auto) 0.8, Absolute Neuts (auto) 6.3, Nucleated RBC % 0, Sodium 139, Potassium 3.3 L, Chloride 105, Carbon Dioxide 27.0, Anion Gap 7, BUN 20 H, Creatinine 1.03, Est GFR (MDRD) Af Amer 90, Est GFR (MDRD) Non-Af 75, BUN/Creatinine Ratio 19.4, Glucose 97, Calcium 8.5, Phosphorus 2.4 L, Magnesium 1.9, Triglycerides 55, Cholesterol 118, LDL Cholesterol 54, VLDL Cholesterol 11, HDL Cholesterol 53 Rhythm: EKG: ECHO: Stress Test: Cardiac Cath: PCI: CT Surgery: Holter monitor: EPS: PPM: CXR: Chest CT Scan: Radiography Diagnostic Testing: Radiology Impression Brain MRI 10/19/23 10:13 IMPRESSION: Acute lacunar infarct in the right cerebellum. Mild chronic involutional and white matter changes. Electronically Signed: Carmencita Al MD at 15:16 EST , ADDENDUM: 10/19/23 1538 IMPRESSION: Acute lacunar infarct in the right cerebellum. Mild chronic involutional and white matter changes. N.B. : Cheko Huitron OT, confirmed on 10/19/2023 15:31:13 (ET) that the healthcare facility has received the radiology report. Electronically Signed: Carmencita Al MD at 15:16 EST Reading Location ID and State: [facility] / [place] Tel , Service support , Echocardiogram 10/19/23 10:13 Interpretation Summary Normal LV size. Left ventricular systolic function is normal. The estimated ejection fraction is 60 %. Bubble contrast study negative for right to left interatrial shunt. Stage 1 diastolic dysfunction. Ordering Physician: Jonah Calix Referring Physician: SYDNEY HUNT Performed By: Kate Arzate RDCS
--- NOTE | 2023-10-20 11:35 | CASEMGMT ---
RN?CM?TALENT BUYER?CM?to room to meet with patient for initial transition planning/care coordination?assessment.?RN?CM?introduced self and role at [facility].? Pt voices understanding and consents to?assessment?at this time. Pt sitting up in chair in room in no distress at this time.? Pt is A/O at this time and answers all questions appropriately.?? Care providers, pharmacy, and demographics verified/updated at this time. PCP: Dr Julien Specialists: VIANEY Calero-neurologist @ [facility] Preferred Pharmacy: [facility] Retail Insurance: MCR, MMO Prescription Benefit:?Yes, [employer] Living Will/HPOA:?Pt does not currently have LW/HCPOA and declines info at this time.? Pt made aware that he can contact as an out-pt and make appt in the future if he decides he would like to talk with someone about this or would like to utilize [facility] social work for advanced directive completion. LNOK: One sibling: Sister, Amy. Significant other, Renjessica. Pt is not , does not have any children, and parents are . Living Arrangements: Lives alone in one-story home w/basement and 2 steps to enter home. Pt states the stairs are a spiral staircase. He denies difficulty w/the stairs other than it is difficult carrying anything up/down them. He states he is indep w/ADL's, IADL's, manages his own medications, gets his own groceries, and prepares his own meals. His sister comes to help and clean at times. Sig other, Renjessica, can assist if needed. Transportation:?Pt states drives self and states no transportation concerns at this time.?He states his boss or bro-in-law will take him home @ discharge. DME: States has the following DME:?cane. ?Pt states no need for further DME at this time.? HHC/SNF: No hx of either. Pt denies need for HHC. He states he feels safe to discharge home alone and denies need for HHC. He states has no concerns with going home at time of discharge.?Pt made aware of ST recommendations. He states he does not think he'll end up going but he would be agreeable to taking a script for it, in case he decides he would like to go once he returns home. Script for OP ST provided to pt. He was made aware he can take to any location of choice and verbally reviewed w/him local places that do OP ST. Pt voices appreciation. CCN/Pt Link: Discussed both of these and declines wanting referral for either one. PLAN:??Home Keaton SALGADON?RN?CM
[2023-10-20 12:14] LABS: Uric Acid 7.8 mg/dL (3.5-7.2)
--- NOTE | 2023-10-20 12:17 | STROKE.CONS ---
Assessment and Plan: Stroke Assessment/Plan TRACI COOPER Jr. is a 73 M right handed male with history of Parkinson's Disease, Hypothyroid, HTN, and prior TIA who presents with episode of blurry vision and difficulty with speech that lasted 45 minutes then resolved on 10/19/2023 6a. Neurological examination shows stigmata of Parkinsons disease (masked facies, tremor), otherwise nonfocal. Neuroimaging shows small punctate right cerebellar infarct on MRI DWI. Assessment: DWI positive TIA Plan: Recommend Event monitor () to complete stroke work-up (as outpatient). Continue Asa and lipitor 80. Inpatient Stroke work-up completed, may discharge home if cleared by PT. HPI Consult Data Date of Consult: 10/20/23 HPI Narrative HPI Narrative: TRACI COOPER, is a 73 M right handed male with history of Parkinsons Disease, Hypothyroid, HTN, and prior TIA who presents with episode of blurry vision and difficulty with speech. He awoke 10/19/2023 and was at baseline and then at 6a he developed blurry vision and could not get correct words out. This lasted about 45 min then resolved. He presented to [place] [facility], initial NIHSS-0. CT brain and CT angiogram head/neck negative. He was admitted. MRI brain DWI shows punctate right cerebellar acute infarct. He is on Asa and lipitor 80. Currently patient feels at baseline. [facility] Medical History (Updated 10/20/23 @ 11:[address] Bryant Loredo MD) HTN (hypertension) Hypothyroid Parkinson disease Home Medications amlodipine 10 mg tablet 10 tab PO DAILY 04/19/22 [History Last Taken 10/19/23] aspirin 81 mg tablet,delayed release 81 tab PO DAILY 04/19/22 [History Last Taken 10/19/23] atenolol 25 mg tablet 25 tab PO DAILY 04/19/22 [History Last Taken Unknown] carbidopa 25 mg-levodopa 100 mg tablet 1 tab PO TID 04/19/22 [History Last Taken 10/19/23] levothyroxine 50 mcg tablet 50 mcg PO DAILY 04/19/22 [History Last Taken 10/19/23] triamterene 75 mg-hydrochlorothiazide 50 mg tablet 1 tab PO DAILY 04/19/22 [History Last Taken Unknown] Allergy/AdvReac Type Severity Reaction Status Date / Time No Known Allergies Allergy Verified 10/19/23 08:01 Surgical History Status post laparoscopic cholecystectomy Social History Smoking Status: Former smoker Vital Signs Vital Signs Vital Signs: 10/19/23 14:26 10/19/23 14:36 10/19/23 14:46 Temperature Temperature Source Pulse Rate 83 75 72 Pulse Strength Respiratory Rate 16 16 16 Respiratory Effort Respiratory Depth Respiratory Pattern Blood Pressure 127/68 H 123/63 H 104/62 Blood Pressure Mean 87 83 76 Blood Pressure Source Monitor Monitor Monitor Blood Pressure Position Supine Supine Supine Blood Pressure Location Right Arm Right Arm Right Arm Pulse Ox 94 95 94 Oxygen Delivery Method Room Air Room Air Room Air 10/19/23 15:34 10/19/23 17:36 10/19/23 20:37 Temperature 98.2 F 97.8 F Temperature Source Oral Oral Pulse Rate 73 71 Pulse Strength Normal (2+) Respiratory Rate 16 16 Respiratory Effort Respiratory Depth Respiratory Pattern Blood Pressure 112/75 128/76 H Blood Pressure Mean 87 93 Blood Pressure Source Monitor Monitor Blood Pressure Position Semi-Fowlers Sitting Blood Pressure Location Right Arm Right Arm Pulse Ox 98 97 Oxygen Delivery Method Room Air Room Air 10/19/23 21:35 10/19/23 19:05 10/19/23 22:00 Temperature 99.3 F H Temperature Source Oral Pulse Rate 68 Pulse Strength Respiratory Rate 18 Respiratory Effort Normal Non-Labored Respiratory Depth Normal Respiratory Pattern Normal Blood Pressure 115/76 Blood Pressure Mean 89 Blood Pressure Source Monitor Blood Pressure Position Supine Blood Pressure Location Right Arm Pulse Ox 94 94 Oxygen Delivery Method Room Air Room Air Room Air 10/19/23 21:35 10/20/23 01:35 10/20/23 01:35 Temperature 99.3 F H 96.9 F L 96.8 F L Temperature Source Oral Temporal Temporal Pulse Rate 68 64 64 Pulse Strength Respiratory Rate 18 16 16 Respiratory Effort Respiratory Depth Respiratory Pattern Blood Pressure 115/76 139/88 H 139/88 H Blood Pressure Mean 89 105 105 Blood Pressure Source Monitor Monitor Blood Pressure Position Supine Supine Blood Pressure Location Right Arm Pulse Ox 94 96 96 Oxygen Delivery Method Room Air Room Air Room Air 10/20/23 05:35 10/20/23 05:37 10/20/23 07:50 Temperature 98 F 98 F Temperature Source Temporal Temporal Pulse Rate 66 66 Pulse Strength Respiratory Rate 16 16 Respiratory Effort Normal Non-Labored Respiratory Depth Normal Respiratory Pattern Normal Blood Pressure 124/84 H 124/84 H Blood Pressure Mean 97 97 Blood Pressure Source Monitor Monitor Blood Pressure Position Supine Supine Blood Pressure Location Right Arm Right Arm Pulse Ox 93 93 Oxygen Delivery Method Room Air Room Air Room Air 10/20/23 08:02 10/20/23 09:35 10/20/23 10:18 Temperature 98.1 F Temperature Source Oral Pulse Rate 79 Pulse Strength Normal (2+) Respiratory Rate 18 Respiratory Effort Respiratory Depth Respiratory Pattern Blood Pressure 137/79 H Blood Pressure Mean 98 Blood Pressure Source Monitor Blood Pressure Position Semi-Fowlers Blood Pressure Location Right Arm Pulse Ox 95 95 Oxygen Delivery Method Room Air Room Air Weight Weight: 89 kg Body Mass Index (BMI) 27.4 EEG Results Procedure Details EEG Procedure Details: TRACI COOPER Jr. is a 73 year old M with a past medical history of , who presents for evaluation of Electroencephalogram on DATE at TIME NIHSS NIHSS Nursing Documentation NIHSS Nursing Documentation: NIH Stroke Scale Start: 10/19/23 08:07 Freq: Status: Discharge Protocol: Activity Type Activity Date Activity User E-sign Co-sign Detail Recorded Client Recorded Date Recorded By Document 10/19/23 08:09 [facility] [id number] 10/19/23 08:09 [facility] 10/19/23 08:09 NIH Stroke Scale [NIHSS] A score of 0 is normal or asymptomatic . Total possible score is 42. Inpatient: RN or Physician to activate a stroke alert for onset of new stroke symptoms or with NIHSS increase >/= 3 points. Following change in neurological status, NIHSS will be performed per physician order or more frequently PRN. -1a. Level of Consciousness Alert; keenly responsive -1b. LOC Questions Answers BOTH questions correctly. -1c. LOC Commands Performs both tasks correctly . -2. Best Gaze Normal -3. Visual No visual loss -4. Facial Palsy Normal symmetrical movements -5a. Left Arm No drift; arm holds 90 (or 45 ) degrees for full 10 seconds -5b. Right Arm No drift; arm holds 90 (or 45 ) degrees for full 10 seconds -6a. Left Leg No drift; leg holds 30-degree position for full 5 seconds -6b. Right Leg No drift; leg holds 30-degree position for full 5 seconds -7. Limb Ataxia Absent -8. Sensory Normal; no sensory loss -9. Best Language No aphasia; normal -10. Dysarthria Normal -11. Extinction and Inattention No abnormality -Total 0 Query Text:A score of 0 is normal or asymptomatic. Total possible score is 42 . ED: Notify Physician for NIHSS increase by > / = 3 points. Inpatient: RN or Physician to activate a stroke alert for NIHSS increase of > / = 3 points. NIHSS: Ischemic Stroke/TIA Start: 10/19/23 12:01 Text: For PCU Patients: NIH and Neuro Check every 4 Status: Active hours and PRN Freq: [id number] Protocol: Activity Type Activity Date Activity User E-sign Co-sign Detail Recorded Client Recorded Date Recorded By Document 10/20/23 09:35 Desktop 10/20/23 09:44 10/20/23 09:35 -1a. Level of Consciousness Alert; keenly responsive -1b. LOC Questions Answers BOTH questions correctly. -1c. LOC Commands Performs both tasks correctly . -2. Best Gaze Normal -3. Visual No visual loss -4. Facial Palsy Minor paralysis (flattened nasolabial fold , asymmetry on smiling) -5a. Left Arm No drift; arm holds 90 (or 45 ) degrees for full 10 seconds -5b. Right Arm No drift; arm holds 90 (or 45 ) degrees for full 10 seconds -6a. Left Leg No drift; leg holds 30-degree position for full 5 seconds -6b. Right Leg No drift; leg holds 30-degree position for full 5 seconds -7. Limb Ataxia Absent -8. Sensory Normal; no sensory loss -9. Best Language No aphasia; normal -10. Dysarthria Normal -11. Extinction and Inattention No abnormality -Total 1 Query Text:A score of 0 is normal or asymptomatic. Total possible score is 42 . ED: Notify Physician for NIHSS increase by > / = 3 points. Inpatient: RN or Physician to activate a stroke alert for NIHSS increase of > / = 3 points. Coma Scale [Assess] -Eye Opening Spontaneous -Motor Obeys Commands -Verbal Oriented [Total] -Coma Scale Total 15 NIHSS 1a. Level of Consciousness: Alert; keenly responsive 1b. LOC Questions: Answers BOTH questions correctly. 1c. LOC Commands: Performs both tasks correctly. 2. Best Gaze: Normal 3. Visual: No visual loss 4. Facial Palsy: Normal symmetrical movements 5a. Left Arm: No drift; arm holds 90 (or 45) degrees for full 10 seconds 5b. Right Arm: No drift; arm holds 90 (or 45) degrees for full 10 seconds 6a. Left Leg: No drift; leg holds 30-degree position for full 5 seconds 6b. Right Leg: No drift; leg holds 30-degree position for full 5 seconds 7. Limb Ataxia: Absent 8. Sensory: Normal; no sensory loss 9. Best Language: No aphasia; normal 10. Dysarthria: Normal 11. Extinction and Inattention: No abnormality Total: 0 Physical Exam Neuro Neuro Narrative: Neurological examination:: General: The patient appears nutritionally appropriate, well-groomed, and appears comfortable in no acute distress. Mental Status: The patient?s mental status was normal including orientation. Language was intact. Cranial nerves: Visual ribera full, extra-ocular motion was intact. Face motion symmetric. He has masked facies Bilateral shoulder shrug was intact. Tongue was midline with normal movement. There was no dysarthria. Motor: Normal strength in all four extremities. No pronator drift. Sensation: Intact light touch bilaterally, no extinction. Coordination: Bilateral finger to nose was normal. There was no dysmetria. Bilateral pill rolling tremor in hands, right > left Gait: deferred Lab / Micro Data 10/20/23 05:50 10/20/23 05:50 Labs: Laboratory Results - last 24 hr 10/19/23 08:04: D-Dimer Quant (PE/DVT) 0.44 10/19/23 12:18: Troponin I High Sens 8 10/19/23 13:46: Troponin I High Sens 8 10/19/23 17:52: Troponin I High Sens 11 10/20/23 05:50: WBC 9.1, RBC 5.01, Hgb 13.7, Hct 41.6, MCV 83.0, MCH 27.3, MCHC 32.9, RDW Std Deviation 39.8, RDW Coeff of Nav[place]et 13.2, Plt Count 179, MPV 10.6, Immature Gran % (Auto) 0.400, Neut % (Auto) 69.7, Lymph % (Auto) 17.0 L, [place] % (Auto) 11.0 H, Eos % (Auto) 1.1, Baso % (Auto) 0.8, Absolute Neuts (auto) 6.3, Absolute Lymphs (auto) 1.54, Nucleated RBC % 0, Sodium 139, Potassium 3.3 L, Chloride 105, Carbon Dioxide 27.0, Anion Gap 7, BUN 20 H, Creatinine 1.03, Estim Creat Clear Calc 66.00, Est GFR (MDRD) Af Amer 90, Est GFR (MDRD) Non-Af 75, BUN/Creatinine Ratio 19.4, Glucose 97, Uric Acid 7.8 H, Calcium 8.5, Phosphorus 2.4 L, Magnesium 1.9, Triglycerides 55, Cholesterol 118, LDL Cholesterol 54, VLDL Cholesterol 11, HDL Cholesterol 53 Rhythm Strip Rhythm Strip: A-fib Rate: 113 Ectopy: None Imagaing Radiology Impression Brain MRI 10/19/23 10:13 IMPRESSION: Acute lacunar infarct in the right cerebellum. Mild chronic involutional and white matter changes. Electronically Signed: Carmencita Al MD at 15:16 EST , ADDENDUM: 10/19/23 1538 IMPRESSION: Acute lacunar infarct in the right cerebellum. Mild chronic involutional and white matter changes. N.B. : Cheko Huitron OT, confirmed on 10/19/2023 15:31:13 (ET) that the healthcare facility has received the radiology report. Electronically Signed: Carmencita Al MD at 15:16 EST , Echocardiogram 10/19/23 10:13 Interpretation Summary Normal LV size. Left ventricular systolic function is normal. The estimated ejection fraction is 60 %. Bubble contrast study negative for right to left interatrial shunt. Stage 1 diastolic dysfunction. Ordering Physician: Jonah Calix Referring Physician: SYDNEY HUNT Performed By: Kate Arzate RDCS Active Medications Active Medications Active Medications: Current Medications Generic Name Dose Route Start Last Admin Trade Name Freq PRN Reason Stop Dose Admin Acetaminophen 650 mg 10/19/23 12:01 Acetaminophen 325 Mg Tablet PO Q6H PRN PRN Pain 1-10 Or Fever>100.7 Al Hydroxide/Mg Hydroxide 30 ml 10/19/23 12:01 Mag Hydrox/Al Hydrox/Simeth 30 Ml Udc PO Q6H PRN PRN Gastric Burning Albuterol Sulfate 2.5 mg 10/19/23 12:01 Albuterol 2.5 Mg/3 Ml Vial.Neb. INHALATION Q2H PRN PRN SOB/Wheezing Amlodipine Besylate 5 mg 10/21/23 10:00 Amlodipine 5 Mg Tablet PO DAILY DILLAN Protocol Apixaban 5 mg 10/19/23 12:01 10/20/23 09:44 Apixaban 5 Mg Tablet PO 5 mg BID DILLAN Administration Aspirin 81 mg 10/19/23 12:01 10/20/23 09:45 Aspirin E.C. 81 Mg Tablet PO 81 mg DAILY DILLAN Administration Atenolol 25 mg 10/20/23 22:00 Atenolol 25 Mg Tablet PO BID DILLAN Protocol Atorvastatin Calcium 80 mg 10/19/23 22:00 10/19/23 21:54 Atorvastatin Calcium 80 Mg Tablet PO 80 mg QHS DILLAN Administration Carbidopa/Levodopa 1 tablet 10/19/23 14:00 10/20/23 05:04 Carbidopa/Levodopa 25/100 Tablet PO 1 tablet TID DILLAN Administration Docusate Sodium 100 mg 10/19/23 12:01 Docusate Sodium 100 Mg Capsule PO BID PRN PRN Constipation Hydralazine HCl 5 mg 10/19/23 12:01 Hydralazine 20 Mg/Ml Vial IV Q30M PRN to maintain BP goals Sodium Chloride 250 mls @ 15 mls/hr 10/19/23 12:37 IV .[id number] PRN Additional IVPB Infusion Sodium Chloride 250 mls @ 15 mls/hr 10/19/23 12:37 IV .[id number] PRN Saline Flush Ceftriaxone Sodium 1 gm in 50 mls @ 100 mls/hr 10/19/23 17:00 10/20/23 10:49 Rocephin IV Infused Q24 DILLAN Infusion Labetalol HCl 10 - 20 mg 10/19/23 12:01 Labetalol (Prefilled) 20 Mg/4 Ml IV Q10M PRN PRN to Maintain BP Goals Levothyroxine Sodium 50 mcg 10/19/23 12:01 10/20/23 05:04 Levothyroxine 50 Mcg Tablet PO 50 mcg DAILY@0600 [facility] Administration Lisinopril 5 mg 10/20/23 11:45 Lisinopril 5 Mg Tablet PO DAILY [facility] Protocol Melatonin 3 mg 10/19/23 12:01 Melatonin 3 Mg Tablet PO QHS PRN PRN INSOMNIA Nitroglycerin 0.4 mg 10/19/23 12:01 Nitroglycerin (Inpatient Use) 0.4 Mg Tab.Subl SL Q5M PRN CARDIAC/CHEST PAIN Ondansetron HCl 4 mg 10/19/23 12:01 Ondansetron 4 Mg/2 Ml Vial IV Q8H PRN PRN NAUSEA/VOMITING Sodium Chloride 10 - 40 ml 10/19/23 12:37 0.9% Saline Lock 10 Ml Syringe IV UD PRN SALINE FLUSH Triamterene/Hydrochlorothiazide 1 tablet 10/19/23 12:01 10/20/23 09:47 Triamterene 75mg/Hctz 50mg Tablet PO Not Given DAILY [facility] Protocol
[2023-10-20] MEDS: Lisinopril 5 MG Tablet PO (12:45)
--- NOTE | 2023-10-20 12:46 | CASEMGMT ---
SW completed a PHQ 9 with patient as he had a Stroke. Patient scored a 2 which indicates minimal depression. Patient denied need for counseling resources. Maru PHAM
--- NOTE | 2023-10-20 15:21 | CHAPLAIN ---
Type of Pastoral Visit _x__ Initial Visit ___ Follow-up Visit ___ On-call Visit ___ General Patient Visit ___ Spiritual Assessment ___ Family Conference ___ Bereavement ___ Rapid Response ___ Code Blue ___ Other (describe below) Pastoral Care Referral From _x__ Patient ___ Family ___ Nurse ___ Physician ___ Labor Delivery Rn ___ Bleach Machine Operator ___ Other (describe below) Sacrament/Intervention _x__ Active listening ___ Anointing ___ Islam ___ Bereavement ___ Communion ___ Evelin exploration ___ _x__ Life review _x__ Prayer ___ Reconciliation ___ Sacrament of Sick _x__ Supportive presence ___ Wedding ___ Other (describe below) Pastoral Comments patient is welcoming; pt speaks of hardly ever being sick until the last year and that being in the hospital is new to him; pt would like to go home but admits that he will be staying with some disappointment; affirm pt is his feelings; pt gives some life review and talks about his hobbies; 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
[2023-10-20] MEDS: MELATONIN 3 MG TABLET PO (21:24)
[2023-10-20] MEDS: Acetaminophen 325 MG Tablet 650 MG PO (21:24)
[2023-10-20] MEDS: Atorvastatin Calcium 80 MG Tablet PO (21:25)
[2023-10-21] VITALS: BP 112/68; PULSE 65; RESP 16; TEMP 36.6; O2SAT 96
[2023-10-21 00:59] VITALS: BMI 27.4
[2023-10-21 01:30] VITALS: BP 112/68; PULSE 65; RESP 16; TEMP 36.7; O2SAT 96
[2023-10-21 05:30] VITALS: BP 131/68; PULSE 70; RESP 16; TEMP 36.8; O2SAT 96
[2023-10-21] MEDS: Carbidopa/Levodopa 25/100 Tablet PO (05:34)
[2023-10-21] MEDS: Levothyroxine 50 MCG Tablet PO (05:34)
[2023-10-21 07:31] LABS: Anion Gap 7 (5-15); BUN 21 mg/dL (7-18); BUN/Creat Ratio 20.4 RATIO (10-20); Calcium,Total 8.7 mg/dL (8.5-10.1); Chloride 104 mmol/L (98-107); Creatinine, Serum 1.03 mg/dL (0.70-1.30); EST Glomerular Filtration Rate 75 mL/min (>60); Est Glom Filt Rate - Afr Amer 90 mL/min (>60); Glucose 89 mg/dL (74-106); Potassium 3.1 mmol/L (3.5-5.1); Sodium Level 138 mmol/L (136-145)
--- NOTE | 2023-10-21 07:48 | PN.HOSP_ITS ---
Reason for Visit Reason for Visit: Diagnoses Transient cerebral ischemic attack, unspecified (10/19/23) Essential (primary) hypertension (10/19/23) Unspecified atrial fibrillation (10/19/23) Cerebral infarction, unspecified (10/19/23) Personal history of other diseases of the nervous system and sense organs (10/19/23) Subjective Subjective Patient seen. Complains of foot pain attributed to gout. Uric acid levels came back elevated. Patient given Solu-Medrol for acute inflammation and started on allopurinol for the hyperuricemia Objective Data Objective Data Vital Signs: Vital Signs Temp Pulse Resp BP Pulse Ox O2 Del Method 98.3 F 70 16 131/68 H 96 Room Air 10/21/23 05:30 10/21/23 05:30 10/21/23 05:30 10/21/23 05:30 10/21/23 05:30 10/21/23 05:30 Oxygen Delivery Method Room Air Weight: 89 kg Body Mass Index (BMI) 27.4 Intake & Output: Intake and Output for Last 24 Hours 10/19/23 10/20/23 10/21/23 23:59 23:59 23:59 Intake Total 1415.00 / 1655.00 3453.33 / 3453.33 Balance 1415.00 / 1655.00 3453.33 / 3453.33 Lab / Micro Data 10/20/23 05:50 10/21/23 06:13 Labs: Laboratory Results - last 24 hr 10/20/23 05:50: Uric Acid 7.8 H 10/21/23 06:13: Sodium 138, Potassium 3.1 L, Chloride 104, Carbon Dioxide 27.0, Anion Gap 7, BUN 21 H, Creatinine 1.03, Estim Creat Clear Calc 66.00, Est GFR (MDRD) Af Amer 90, Est GFR (MDRD) Non-Af 75, BUN/Creatinine Ratio 20.4 H, Glucose 89, Calcium 8.7 Micro: Microbiology 10/19/23 08:40 Urine, Clean Catch Urine Culture - Preliminary Culture exhibits no growth. Rhythm Strip Rhythm Strip: A-fib Rate: 113 Ectopy: None Physical Exam Narrative GENERAL: cooperative HEENT: Atraumatic; normocephalic EYES; Anicteric, Normal Conjunctiva NECK; supple, normal thyroid, RESPIRATORY: Diminished to auscultation CARDIOVASCULAR: Irregular S1-S2 GI: soft, normoactive bowel sounds, : No Renal angle tenderness; EXTREMITIES: No edema, no clubbing, MUSCULOSKELETAL: no muscle wasting NEURO: Awake; no lateralizing signs. SKIN: No Rash PSYCH; Flat affect Assessment & Plan Assessment/Plan (1) Brain TIA: (2) Atrial fibrillation: (3) History of Parkinson's disease: PLAN: Plan Patient is a 73-year-old gentleman presenting with speech difficulty 1. Acute CVA ? Patient presented with speech difficulty. Initial initial head CT was unremarkable however subsequent MRI demonstrated acute lacunar infarct in the right cerebellum with mild chronic involutional and white matter changes. Patient started on dual antiplatelet therapy with consultation placed to neurology. As part of his management ordered CT angio, and 2D echo. Also ordered PT/OT/ST 2. Parkinson's disease I did continue patient antihypertensive medication 3. A-fib ? Patient does not have any history of previous A-fib was found to be in A-fib on admission. Admitted to telemetry for continuous monitoring. Started on low- dose antiplatelet therapy 4. Hypertension - Blood pressure controlled, home medications continued with dose adjustment as needed 5. Acute kidney injury ? Patient creatinine from 09/25/2022 was 1.15, creatinine on admission was 1.40 started on IV fluid with subsequent monitoring of electrolytes ordered 6. Hypothyroidism - Patient is on levothyroxine home dose continued 7. DVT prophylaxis ? Started on apixaban for his A-fib 8. Hypokalemia -Corrected per protocol, repeat labs ordered for monitoring 9. Acute cystitis ? Patient started on ceftriaxone urine culture sent Time spent in the patient's overall evaluation,decision-making process, review of diagnostic data, adjustment of management, discussion with other providers, nursing nursing and ancillary staff involved in patient's care documentation, 35 Minutes Charges/Coding Visit Charges Inpatient E&M: 82010 Subs Hosp L2
[2023-10-21 08:18] VITALS: O2SAT 95
[2023-10-21 09:30] VITALS: BP 122/71; PULSE 74; RESP 18; TEMP 36.6; O2SAT 95
[2023-10-21] MEDS: Triamterene 75MG/Hctz 50MG Tablet 1 TABLET PO (09:39)
[2023-10-21] MEDS: APIXABAN 5 MG TABLET PO (09:39)
[2023-10-21] MEDS: amLODIPine 5 MG Tablet PO (09:40)
[2023-10-21] MEDS: Atenolol 25 MG Tablet PO (09:40)
[2023-10-21] MEDS: Aspirin E.C. 81 MG Tablet PO (09:40)
[2023-10-21] MEDS: Lisinopril 5 MG Tablet PO (09:40)
[2023-10-21] MEDS: 0.9% Saline Lock 10 ML Syringe IV ×2 (09:48→11:50)
[2023-10-21] MEDS: Ceftriaxone 1 GM/50 ML BAG IV (09:48)
--- NOTE | 2023-10-21 10:19 | DS.PCM_ITS ---
Providers Date of Admission: 10/19/23 Date of Discharge: 10/21/23 Primary Care Physician: Dr. Celso Julien MD Consultations 10/19/23 12:01 Consult: Cardiology Routine Consulting Provider: Bryant Loredo Reason for Consult: NEW ONSET AFIB EMERGENT Consult: No Notified: Yes Date Notified: 10/19/23 Time Notified: 10:11 Method of Notification: Text Consult: Tele-Neurology Routine Consulting Provider: [facility] Reason for Consult: Acute Ischemic Stroke/TIA EMERGENT Consult: No Notified: Yes Date Notified: 10/19/23 Time Notified: 13:12 Method of Notification: Answering Service Nursing Unit Staff Notify [facility] of Tele-Neurology Consult: Yes Reason For Visit: CVA Diagnosis Discharge Diagnosis (1) Brain TIA: Status: Acute Code(s): G45.9 - Transient cerebral ischemic attack, unspecified (2) Atrial fibrillation: Status: Acute Code(s): I48.91 - Unspecified atrial fibrillation (3) History of Parkinson's disease: Status: Acute Code(s): Z86.69 - Personal history of other diseases of the nervous system and sense organs Plan Patient is a 73-year-old gentleman presenting with speech difficulty 1. Acute CVA ? Patient presented with speech difficulty. Initial initial head CT was unremarkable however subsequent MRI demonstrated acute lacunar infarct in the right cerebellum with mild chronic involutional and white matter changes. Patient started on dual antiplatelet therapy with consultation placed to neurology. As part of his management ordered CT angio, and 2D echo. Also ordered PT/OT/ST 2. Parkinson's disease I did continue patient antihypertensive medication 3. A-fib ? Patient does not have any history of previous A-fib was found to be in A-fib on admission. Admitted to telemetry for continuous monitoring. Started on low- dose antiplatelet therapy 4. Hypertension - Blood pressure controlled, home medications continued with dose adjustment as needed 5. Acute kidney injury ? Patient creatinine from 09/25/2022 was 1.15, creatinine on admission was 1.40 started on IV fluid with subsequent monitoring of electrolytes ordered 6. Hypothyroidism - Patient is on levothyroxine home dose continued 7. DVT prophylaxis ? Started on apixaban for his A-fib 8. Hypokalemia -Corrected per protocol, repeat labs ordered for monitoring 9. Acute cystitis ? Patient started on ceftriaxone urine culture sent ? Patient urine cultures exhibited no growth antibiotics discontinued 10. Acute gouty arthritis ? Patient was treated with Solu-Medrol and prescription written for allopurinol Time spent in the patient's overall evaluation,decision-making process, review of diagnostic data, adjustment of management, discussion with other providers, nursing nursing and ancillary staff involved in patient's care documentation, 35 Minutes Medications at Discharge Home Medications amlodipine 10 mg tablet 10 tab PO DAILY 04/19/22 aspirin 81 mg tablet,delayed release 81 tab PO DAILY 04/19/22 atenolol 25 mg tablet 25 tab PO DAILY 04/19/22 carbidopa 25 mg-levodopa 100 mg tablet 1 tab PO TID 04/19/22 levothyroxine 50 mcg tablet 50 mcg PO DAILY 04/19/22 triamterene 75 mg-hydrochlorothiazide 50 mg tablet 1 tab PO DAILY 04/19/22 allopurinol 100 mg tablet 100 mg PO DAILYCM 60 days #60 tabs 10/21/23 apixaban 5 mg tablet (Eliquis) 5 mg PO BID 60 days #120 tabs 10/21/23 atorvastatin 80 mg tablet 80 mg PO QHS 60 days #60 tabs 10/21/23 lisinopril 5 mg tablet 5 mg PO DAILY 60 days #60 tabs 10/21/23 potassium chloride 20 mEq tablet,extended release(part/cryst) 20 meq PO BIDCM 7 days #14 tabs 10/21/23 Physical Exam Narrative GENERAL: cooperative HEENT: Atraumatic; normocephalic EYES; Anicteric, Normal Conjunctiva NECK; supple, normal thyroid, RESPIRATORY: Diminished to auscultation CARDIOVASCULAR: Irregular S1-S2 GI: soft, normoactive bowel sounds, : No Renal angle tenderness; EXTREMITIES: No edema, no clubbing, MUSCULOSKELETAL: no muscle wasting NEURO: Awake; no lateralizing signs. SKIN: No Rash PSYCH; Flat affect Weight / BMI Weight Weight: 89 kg Body Mass Index (BMI) 27.4 ABG / Lab / Microbiology Data 10/20/23 05:50 10/21/23 06:13 Laboratory: Laboratory Results - last 24 hr 10/20/23 05:50: Uric Acid 7.8 H 10/21/23 06:13: Sodium 138, Potassium 3.1 L, Chloride 104, Carbon Dioxide 27.0, Anion Gap 7, BUN 21 H, Creatinine 1.03, Estim Creat Clear Calc 66.00, Est GFR (MDRD) Af Amer 90, Est GFR (MDRD) Non-Af 75, BUN/Creatinine Ratio 20.4 H, Glucose 89, Calcium 8.7 Microbiology: Microbiology 10/19/23 08:40 Urine, Clean Catch Urine Culture - Preliminary Culture exhibits no growth. D/C Instructions Discharge Diet: Low fat / Low cholesterol Discharge Activity: Return to Normal Activity Call your doctor if you observe: Fever of 101 or Higher, Shortness of breath, Fainting spells and Chest pain Meaningful Use Info Meaningful Use Diagnoses (Choose all that apply): Ischemic CVA CVA Therapy Assessed for PT,OT and/or ST?: Yes Ischemic Stroke Antithrombotic order at d/c?: Yes Dx of Atrial fib/flutter?: Yes Anticoagulant at discharge?: Yes Statins at discharge?: Yes Primary Dx Acute Ischemic CVA?: Yes IV thrombolytic ordered during stay?: No Reason IV thrombolytic not ordered: Treatment not Indicated Discharge Plan Admission Admit Date/Time: 10/19/23 17:02 Attending Provider: Jonah Calix Primary Care Provider: Celso Julien Consulting Providers: Bryant Loredo; Gurjit Jefferson; Nakul Hopper; Kateryna Jordan; Enedina Armenta; Gissel Hoyos; Paul Clark; Camilla Tejada; Augusto Truong; Mika Freeman; Catie Geronimo; Andrew Patton; Niharika Freed; Ines Buckley; Trang De Jesus; Trenton Garces; Yolie Robins; Mauricio Tyson; Lila Melchor; Navi Flores Discharge Orders/Prescriptions Prescriptions: New atorvastatin 80 mg Tablet 80 mg PO QHS 60 Days Qty: 60 0RF allopurinol 100 mg Tablet 100 mg PO DAILYCM 60 Days Qty: 60 0RF potassium chloride 20 mEq Tablet,Er Particles/Crystals 20 meq PO BIDCM 7 Days Qty: 14 0RF lisinopril 5 mg Tablet 5 mg PO DAILY 60 Days Qty: 60 0RF Eliquis 5 mg Tablet 5 mg PO BID 60 Days Qty: 120 0RF Continued atenolol 25 mg tablet 25 tab PO DAILY Patient Comments: TAKE 1 TABLET BY MOUTH EVERY DAY aspirin 81 mg tablet,delayed release (DR/EC) 81 tab PO DAILY Patient Comments: TAKE 1 TABLET BY MOUTH EVERY DAY amlodipine 10 mg tablet 10 tab PO DAILY Patient Comments: TAKE 1 TABLET BY MOUTH EVERY DAY levothyroxine 50 mcg tablet 50 mcg PO DAILY Patient Comments: TAKE 1 TABLET BY MOUTH ONCE DAILY. TAKE ON EMPTY STOMACH. FOR THYROID. triamterene-hydrochlorothiazid 75-50 mg tablet 1 tab PO DAILY Patient Comments: TAKE 1 TABLET BY MOUTH EVERY DAY carbidopa-levodopa 25-100 mg tablet 1 tab PO TID Patient Comments: TAKE 1 TABLET BY MOUTH THREE TIMES A DAY Referrals / Follow Up: Celso Julien MD [Primary Care Provider] - In 1 Week Disposition Disposition (needs filled in before D/C Order can be placed): Home Health Service Charges/Coding Visit Charges Inpatient E&M: 98566 Disch Hosp >30min
[2023-10-21] MEDS: MethylPREDNISolone 125 MG/2 ML Vial 80 MG IV (11:49)
[2023-10-21 11:50] VITALS: BMI 27.4
[2023-10-21] MEDS: Potassium Chloride Oral Tablet 20 MEQ 40 MEQ PO (11:50)
[2023-10-21] MEDS: Allopurinol 100 MG Tablet PO (11:50)
[2023-10-21] MEDS: Potassium Chloride Oral Tablet 20 MEQ PO (11:50)
--- NOTE | 2023-11-25 12:08 | CASEMGMT ---
Pt came to [facility] desk and states he lost his eliquis savings card. Provided pt with a card as he states he has never used one. Pt came back and states that [facility] could not apply it. Noted on the card, it was written 10/21/23 at hospital. Pt reports he did receive medications from the hospital. He is now aware that the savings card was applied then and it is a 1x use. Pt states it is $400 at the pharmacy. He state she has an appt on Monday with the [facility] to discuss this. Encouraged pt to not stop the medication. He states his friend who is present can go back to his house and he can get the funds for the med. Pt to follow up with BRAUL[facility]. Pt did not understand the card had already been used as he was not the one who physically provided it. Pt denies further needs.
== END 2023-10-21 12:20 | disposition home or self-care (01) | DRG 65 ==
LOC: ED 10:10 → PCU 10:39
PROVIDERS: Internal Medicine Cardiovascular Disease; Admitting Provider Internal Medicine; Emergency Provider Emergency Medicine; PCP Family Medicine; Visit Provider Internal Medicine
DX: I63.81 Other cerebral infarction due to occlusion or stenosis of small artery (principal); N17.9 Acute kidney failure, unspecified; N30.00 Acute cystitis without hematuria; I48.91 Unspecified atrial fibrillation; I10 Essential (primary) hypertension; E03.9 Hypothyroidism, unspecified; E87.6 Hypokalemia; M10.079 Idiopathic gout, unspecified ankle and foot; R29.700 NIHSS score 0; R47.1 Dysarthria and anarthria; G20.A1 Parkinson's disease without dyskinesia, without mention of fluctuations; Z79.82 Long term (current) use of aspirin; Z79.899 Other long term (current) drug therapy; Z87.891 Personal history of nicotine dependence; Z86.73 Personal history of transient ischemic attack (TIA), and cerebral infarction without residual deficits
CPT/HCPCS: 36415; 70450; 70496; 70498; 70551; 71045; 80048; 80061; 81001; 83735; 84100; 84443; 84484; 84550; 85025; 85379; 85610; 85730; 87086; 92526; 92610; 93005; 93306; 94762; 97162; 97166; 99285; J7030; J7040; Q9957; Q9967; A4216; C8929

== ENCOUNTER 2024-02-25 12:53 | Emergency (ER) | payer MEDICARE, OTHER, SELFPAY ==
[2024-02-25 12:54] VITALS: BP 117/74; PULSE 70; RESP 18; TEMP 36.6; O2SAT 95
--- NOTE | 2024-02-25 13:33 | EX.ED.GUMALE ---
[facility] <Dr. Annia Camara DO - Last Filed: 02/25/24 15:44> History of Present Illness Chief Complaint: Complaint Detail of Chief Complaint: Hematuria Informant: patient Narrative Narrative: Patient presents the emergency department complaint of hematuria that started around 2 AM. Patient denies any abdominal pain. He denies dysuria or urgency or frequency. He does have history of kidney stones but is not having any pain. Patient on Eliquis for history of stroke. States he feels great otherwise. Patient has remote history of smoking but has not smoked in more than 20 years. No history of bladder or kidney cancer. [facility] <Dr. Annia Camara DO - Last Filed: 02/25/24 15:44> [facility] Medical History (Updated 02/25/24 @ 17:[address] Miquel Lewis MD) HTN (hypertension) Hypothyroid Parkinson disease Home Medications amlodipine 10 mg tablet 10 tab PO DAILY blood pressure 04/19/22 [History Last Taken 10/19/23] aspirin 81 mg tablet,delayed release 81 tab PO DAILY heart health 04/19/22 [History Last Taken 10/19/23] atenolol 25 mg tablet 25 tab PO DAILY blood pressure 04/19/22 [History Last Taken Unknown] carbidopa 25 mg-levodopa 100 mg tablet 1 tab PO TID parkinsons 04/19/22 [History Last Taken 10/19/23] levothyroxine 50 mcg tablet 50 mcg PO DAILY thyroid 04/19/22 [History Last Taken 10/19/23] triamterene 75 mg-hydrochlorothiazide 50 mg tablet 1 tab PO DAILY blood pressure 04/19/22 [History Last Taken Unknown] allopurinol 100 mg tablet 100 mg PO DAILYCM 60 days #60 tabs 10/21/23 [Rx Last Taken Unknown] atorvastatin 80 mg tablet 80 mg PO QHS 60 days #60 tabs 10/21/23 [Rx Last Taken Unknown] lisinopril 5 mg tablet 5 mg PO DAILY 60 days #60 tabs 10/21/23 [Rx Last Taken Unknown] potassium chloride 20 mEq tablet,extended release(part/cryst) 20 meq PO BIDCM 7 days #14 tabs 10/21/23 [Rx Last Taken Unknown] apixaban 5 mg tablet (Eliquis) 2.5 mg (1/2 x 5 mg) PO BID 60 days #120 tabs 02/25/24 [Rx Last Taken Unknown] Allergy/AdvReac Type Severity Reaction Status Date / Time No Known Allergies Allergy Verified 02/25/24 12:53 Surgical History (Updated 10/29/23 @ 00:02 by Background Daemon) Status post laparoscopic cholecystectomy Social History Smoking Status: Former smoker ROS <Dr. Annia Camara DO - Last Filed: 02/25/24 15:44> ROS ED Review of Systems ROS Unobtainable: other Constitutional Constitutional ED: Reports lethargy; Denies chills, fever(s), sweats or weight loss Eyes Eyes: Denies blurry vision, change in vision or diplopia ENT ENT ED: Denies rhinorrhea or sore throat Cardiovascular Cardiovascular: Denies chest pain, orthopnea or racing heartbeat Respiratory/Chest Respiratory/Chest: Denies cough, dyspnea, dyspnea on exertion, orthopnea or sputum Gastrointestinal Gastrointestinal: Denies abdominal pain, diarrhea, nausea or vomiting Genitourinary Genitourinary ED: Reports hematuria; Denies dysuria or urinary frequency Musculoskeletal Musculoskeletal: Denies arthralgias, back pain, myalgias or neck pain Integumentary Denies abscess, Abrasions or rash Neurologic Neurologic: Denies headache(s) or weakness Psychiatric Psychiatric: Denies anxiety, depression or suicidal thoughts Endocrine Endocrinology: Denies polydipsia, polyphagia or polyuria Hematologic/Lymphatic Hematologic/Lymphatic: Denies easy bleeding, easy bruising or lymphadenopathy Allergic/Immunologic Allergic/Immunologic ED: Denies mouth swelling, tongue swelling or urticaria EXAM <Dr. Annia Camara, - Last Filed: 02/25/24 15:44> Physical Exam Const Vital Signs: 02/25/24 12:54 02/25/24 15:05 02/25/24 17:00 Temperature 97.8 F Temperature Source Oral Pulse Rate 70 70 68 Respiratory Rate 18 16 16 Blood Pressure 117/74 132/77 H 133/80 H Blood Pressure Mean 88 95 97 Pulse Ox 95 97 97 Oxygen Delivery Method Room Air Room Air Room Air 02/25/24 17:53 Temperature 97.8 F Temperature Source Pulse Rate 68 Respiratory Rate 16 Blood Pressure 133/80 H Blood Pressure Mean 97 Pulse Ox 97 Oxygen Delivery Method Positive well nourished and well developed General Appearance ED: well developed and NAD HEENT Reports TM's clear and moist mucous membranes normocephalic and atraumatic; Negative for trauma or tenderness Tympanic Membrane ED: Yes TM's clear Eyes PERRL and EOMs intact bilaterally General Eye ED: Negative for pale conjunctiva or scleral icterus Neck no lymphadenopathy, supple and no JVD General: Negative for tenderness Chest Wall inspection of chest normal and palpation of chest normal Chest: Negative for tenderness Resp normal respiratory effort and clear to auscultation bilaterally Effort and Inspection: Negative for respiratory distress or pain with movement Auscultation: Negative for rhonchi, wheezes or diminished lung sounds Cardio regular rate, regular rhythm, S1 normal heart sound, S2 normal heart sound and no murmurs Peripheral Pulses: pulses 2+ throughout GI normal to inspection, nondistended, normoactive bowel sounds, soft to palpation, non-tender, non-distended and no masses Back/Spine no CVA tenderness and no thoracic nor lumbar tenderness Extremity normal to inspection General Extremety ED: Negative for edema General Extremity: Negative for edema Neuro oriented x3, CN's II-XII intact bilaterally, no sensory deficits noted and gait normal Sensorium / Orientation: awake, alert, oriented to person, oriented to place and oriented to time Motor Exam: strength 5/5 throughout and strength abnormal Psych mental status grossly normal Skin no rashes or lesions noted and no wounds <Dr. Miquel Lewis MD - Last Filed: 02/25/24 17:36> Physical Exam Const Vital Signs: 02/25/24 12:54 02/25/24 15:05 02/25/24 17:00 Temperature 97.8 F Temperature Source Oral Pulse Rate 70 70 68 Respiratory Rate 18 16 16 Blood Pressure 117/74 132/77 H 133/80 H Blood Pressure Mean 88 95 97 Pulse Ox 95 97 97 Oxygen Delivery Method Room Air Room Air Room Air 02/25/24 17:53 Temperature 97.8 F Temperature Source Pulse Rate 68 Respiratory Rate 16 Blood Pressure 133/80 H Blood Pressure Mean 97 Pulse Ox 97 Oxygen Delivery Method <Dr. Liam Cerda DO - Last Filed: 02/25/24 22:02> Physical Exam Const Vital Signs: 02/25/24 12:54 02/25/24 15:05 02/25/24 17:00 Temperature 97.8 F Temperature Source Oral Pulse Rate 70 70 68 Respiratory Rate 18 16 16 Blood Pressure 117/74 132/77 H 133/80 H Blood Pressure Mean 88 95 97 Pulse Ox 95 97 97 Oxygen Delivery Method Room Air Room Air Room Air 02/25/24 17:53 Temperature 97.8 F Temperature Source Pulse Rate 68 Respiratory Rate 16 Blood Pressure 133/80 H Blood Pressure Mean 97 Pulse Ox 97 Oxygen Delivery Method [facility] <Dr. Annia Camara, DO - Last Filed: 02/25/24 15:44> [facility] Narrative Medical decision making narrative: Patient presents with painless hematuria. In the differential would be UTI versus kidney mass or bladder mass or kidney stone. IV line established. CBC with differential recommend 6.9 with hemoglobin 14.5 and platelet count of 200. Chemistries unremarkable. BUN 21 and creatinine 1.31. Urinalysis ordered and pending. CT scan of the abdomen pelvis ordered with IV contrast. Results are pending. Care of patient turned over to evening physician awaiting urinalysis and CT interpretation. Lab Data Attestation: I reviewed the patient's lab results. Labs: Laboratory Results - last 24 hr 02/25/24 02/25/24 13:40 16:00 WBC 6.9 RBC 5.34 Hgb 14.5 Hct 43.9 MCV 82.2 MCH 27.2 MCHC 33.0 RDW Std Deviation 38.4 RDW Coeff of Navneet 12.9 Plt Count 200 MPV 10.0 Immature Gran % (Auto) 0.100 Neut % (Auto) 72.5 H Lymph % (Auto) 16.4 L Burke % (Auto) 9.3 Eos % (Auto) 0.4 Baso % (Auto) 1.3 H Absolute Neuts (auto) 5.0 Absolute Lymphs (auto) 1.13 Nucleated RBC % 0 Sodium 138 Potassium 3.3 L Chloride 100 Carbon Dioxide 32.0 Anion Gap 6 BUN 21 H Creatinine 1.31 H Est GFR (MDRD) Af Amer 69 Est GFR (MDRD) Non-Af 57 L BUN/Creatinine Ratio 16.0 Glucose 100 Calcium 9.2 Urine Color Red Urine Clarity Cloudy Urine pH 7.0 Ur Specific Gamaliel 1.005 Urine Protein 30 H Urine Glucose (UA) Normal Urine Ketones Negative Urine Occult Blood 250 H Urine Nitrite Positive H Urine Bilirubin Negative Urine Urobilinogen Normal Ur Leukocyte Esterase 25 H Urine RBC > 100 SEEN Urine WBC 0-5 SEEN Ur Squamous Epith Cells 0 SEEN Urine Bacteria 0 SEEN Urine Mucus 0 SEEN Radiography Diagnostic Testing: Clinical Impression(s) from Imaging Studies Abdomen/Pelvis CT 02/25/24 14:48 IMPRESSION: (NOT LISTED IN ORDER OF SIGNIFICANCE) Right-sided urinary bladder masses may be a neoplasm. Cystoscopy is recommended for evaluation. Other findings as above. Electronically Signed: Ron Stuart MD at 15:54 EDT Reading Location ID and State: [facility] / [place] , Service support , <Dr. Miquel Lewis MD - Last Filed: 02/25/24 17:36> [facility] Lab Data Labs: Laboratory Results - last 24 hr 02/25/24 02/25/24 13:40 16:00 WBC 6.9 RBC 5.34 Hgb 14.5 Hct 43.9 MCV 82.2 MCH 27.2 MCHC 33.0 RDW Std Deviation 38.4 RDW Coeff of Navneet 12.9 Plt Count 200 MPV 10.0 Immature Gran % (Auto) 0.100 Neut % (Auto) 72.5 H Lymph % (Auto) 16.4 L Burke % (Auto) 9.3 Eos % (Auto) 0.4 Baso % (Auto) 1.3 H Absolute Neuts (auto) 5.0 Absolute Lymphs (auto) 1.13 Nucleated RBC % 0 Sodium 138 Potassium 3.3 L Chloride 100 Carbon Dioxide 32.0 Anion Gap 6 BUN 21 H Creatinine 1.31 H Est GFR (MDRD) Af Amer 69 Est GFR (MDRD) Non-Af 57 L BUN/Creatinine Ratio 16.0 Glucose 100 Calcium 9.2 Urine Color Red Urine Clarity Cloudy Urine pH 7.0 Ur Specific Gamaliel 1.005 Urine Protein 30 H Urine Glucose (UA) Normal Urine Ketones Negative Urine Occult Blood 250 H Urine Nitrite Positive H Urine Bilirubin Negative Urine Urobilinogen Normal Ur Leukocyte Esterase 25 H Urine RBC > 100 SEEN Urine WBC 0-5 SEEN Ur Squamous Epith Cells 0 SEEN Urine Bacteria 0 SEEN Urine Mucus 0 SEEN Radiography Diagnostic Testing: Clinical Impression(s) from Imaging Studies Abdomen/Pelvis CT 02/25/24 14:48 IMPRESSION: (NOT LISTED IN ORDER OF SIGNIFICANCE) Right-sided urinary bladder masses may be a neoplasm. Cystoscopy is recommended for evaluation. Other findings as above. Electronically Signed: Ron Stuart MD at 15:54 EDT , Management Discussion w/another healthcare provider: [employer] Developer (Urology Dr. Butt) Treatment and Re-Evaluation Narrative: Patient checked out to me. He is doing well. No urinary retention. I reviewed his CT results as well as the images of which I agree with, it shows a couple of masses in the bladder, this is suspicious for bladder cancer, and he is anticoagulated which is likely the cause of the bleeding. No other acute pathology. I discussed with the patient as well as Dr. Butt with urology, agrees with outpatient follow-up closely after the weekend. He recommended decreasing the patient's Eliquis to half dosing which we are going to do, he is on it for stroke. Discussed reasons to return especially gross hematuria/retention, but if he does get gross hematuria without retention I recommend discontinuing Eliquis first. <Dr. Liam Cerda, DO - Last Filed: 02/25/24 22:02> [facility] Lab Data Labs: Laboratory Results - last 24 hr 02/25/24 02/25/24 13:40 16:00 WBC 6.9 RBC 5.34 Hgb 14.5 Hct 43.9 MCV 82.2 MCH 27.2 MCHC 33.0 RDW Std Deviation 38.4 RDW Coeff of Navneet 12.9 Plt Count 200 MPV 10.0 Immature Gran % (Auto) 0.100 Neut % (Auto) 72.5 H Lymph % (Auto) 16.4 L Burke % (Auto) 9.3 Eos % (Auto) 0.4 Baso % (Auto) 1.3 H Absolute Neuts (auto) 5.0 Absolute Lymphs (auto) 1.13 Nucleated RBC % 0 Sodium 138 Potassium 3.3 L Chloride 100 Carbon Dioxide 32.0 Anion Gap 6 BUN 21 H Creatinine 1.31 H Est GFR (MDRD) Af Amer 69 Est GFR (MDRD) Non-Af 57 L BUN/Creatinine Ratio 16.0 Glucose 100 Calcium 9.2 Urine Color Red Urine Clarity Cloudy Urine pH 7.0 Ur Specific Gamaliel 1.005 Urine Protein 30 H Urine Glucose (UA) Normal Urine Ketones Negative Urine Occult Blood 250 H Urine Nitrite Positive H Urine Bilirubin Negative Urine Urobilinogen Normal Ur Leukocyte Esterase 25 H Urine RBC > 100 SEEN Urine WBC 0-5 SEEN Ur Squamous Epith Cells 0 SEEN Urine Bacteria 0 SEEN Urine Mucus 0 SEEN Radiography Diagnostic Testing: Clinical Impression(s) from Imaging Studies Abdomen/Pelvis CT 02/25/24 14:48 IMPRESSION: (NOT LISTED IN ORDER OF SIGNIFICANCE) Right-sided urinary bladder masses may be a neoplasm. Cystoscopy is recommended for evaluation. Other findings as above. Electronically Signed: Ron Stuart MD at 15:54 EDT , Treatment and Re-Evaluation Narrative: Patient checked out to me. He is doing well. No urinary retention. I reviewed his CT results as well as the images of which I agree with, it shows a couple of masses in the bladder, this is suspicious for bladder cancer, and he is anticoagulated which is likely the cause of the bleeding. No other acute pathology. I discussed with the patient as well as Dr. Butt with urology, agrees with outpatient follow-up closely after the weekend. He recommended decreasing the patient's Eliquis to half dosing which we are going to do, he is on it for stroke. Discussed reasons to return especially gross hematuria/retention, but if he does get gross hematuria without retention I recommend discontinuing Eliquis first. I did not precipitate in this patient's care. Liam Cerda DO Discharge Plan Triage Chief Complaint: Complaint ED Provider: Annia Camara Dx/Rx/DC Orders Clinical Impression: Hematuria, Bladder mass Instructions: Hematuria: Possible Causes Prescriptions: Continued atenolol 25 mg tablet 25 tab PO DAILY Patient Comments: TAKE 1 TABLET BY MOUTH EVERY DAY aspirin 81 mg tablet,delayed release (DR/EC) 81 tab PO DAILY Patient Comments: TAKE 1 TABLET BY MOUTH EVERY DAY amlodipine 10 mg tablet 10 tab PO DAILY Patient Comments: TAKE 1 TABLET BY MOUTH EVERY DAY levothyroxine 50 mcg tablet 50 mcg PO DAILY Patient Comments: TAKE 1 TABLET BY MOUTH ONCE DAILY. TAKE ON EMPTY STOMACH. FOR THYROID. triamterene-hydrochlorothiazid 75-50 mg tablet 1 tab PO DAILY Patient Comments: TAKE 1 TABLET BY MOUTH EVERY DAY carbidopa-levodopa 25-100 mg tablet 1 tab PO TID Patient Comments: TAKE 1 TABLET BY MOUTH THREE TIMES A DAY atorvastatin 80 mg Tablet 80 mg PO QHS 60 Days Qty: 60 0RF allopurinol 100 mg Tablet 100 mg PO DAILYCM 60 Days Qty: 60 0RF potassium chloride 20 mEq Tablet,Er Particles/Crystals 20 meq PO BIDCM 7 Days Qty: 14 0RF lisinopril 5 mg Tablet 5 mg PO DAILY 60 Days Qty: 60 0RF Changed Eliquis 5 mg Tablet 2.5 mg PO BID 60 Days Qty: 120 0RF Primary Care Provider: Celso Julien Referrals: Merlin Butt MD [Med Staff - Active Staff] - As soon as possible (call monday for appt day/time) Celso Julien MD [Primary Care Provider] - Disposition Disposition: Home, Self Care Discharge Date/Time: 02/25/24 17:54
[2024-02-25 13:49] LABS: Absolute Lymphocyte Count 1.13 X10^3/uL (0.83-4.51); Basophil# 0.09 X10^3/uL; Basophil% 1.3 % (0-1); Eosinophil# 0.03 X10^3/uL; Eosinophils% 0.4 % (0-5); Hematocrit 43.9 % (40-54); Hemoglobin 14.5 g/dL (13.0-16.5); Lymphocyte # 1.13 X10^3/ul (0.83-4.51); Lymphocyte % 16.4 % (19-41); Mean Corpuscular Hgb 27.2 pg (27.0-32.0); Mean Corpuscular Volume 82.2 fL (80-94); Monocyte# 0.64 X10^3/uL; Monocyte% 9.3 % (0-10); NRBC Flagged by Analyzer 0 % (0-5); Neutrophil # 4.98 X10^3/uL (2.7-7.7); Neutrophil % 72.5 % (47-70); Platelet Count 200 K/mm3 (150-450); RBC Distribution Width CV 12.9 % (11.6-14.6); RBC Distribution Width SD 38.4 fl (35.1-43.9); Red Blood Count 5.34 M/mm3 (4.6-6.2); White Blood Count 6.9 K/mm3 (4.4-11.0)
[2024-02-25 14:04] LABS: Anion Gap 6 (5-15); BUN 21 mg/dL (7-18); Calcium,Total 9.2 mg/dL (8.5-10.1); Chloride 100 mmol/L (98-107); Creatinine, Serum 1.31 mg/dL (0.70-1.30); EST Glomerular Filtration Rate 57 mL/min (>60); Est Glom Filt Rate - Afr Amer 69 mL/min (>60); Glucose 100 mg/dL (74-106); Potassium 3.3 mmol/L (3.5-5.1); Sodium Level 138 mmol/L (136-145)
[2024-02-25 14:12] VITALS: BMI 26.3
--- NOTE | 2024-02-25 14:48 | CT_ITS ---
STUDY: CT Abdomen And Pelvis W/ Contrast Injection 02/25/2024 3:50 PM REASON FOR EXAM: Male, 73 years old. painless hematuria Individualized dose optimization techniques were used for this CT. COMPARISON: None. TECHNIQUE: CT Abdomen And Pelvis W/ Contrast Injection IV 100mL [id number] FINDINGS: There are atherosclerotic calcifications of visualized coronary arteries. The visualized portions of the heart are within normal limits. Normal liver. There is non-visualization of the gallbladder, which may be secondary to either contraction or a prior cholecystectomy. Normal spleen. Normal pancreas. Normal bilateral adrenal glands. Non obstructive 2 mm right renal parenchymal stones. No acute findings of the left kidney. Normal visualized stomach. Normal small intestine. Stool throughout the colon. The appendix is visualized and appears normal. There are calcifications of the abdominal aorta. This is consistent for atherosclerotic disease. There is NO abdominal aortic aneurysm. Vascular workup can be obtained based on clinical correlation. Normal inferior vena cava. Subcentimeter mesenteric lymph nodes. Multiple nodularities within the urinary bladder. The largest is on the right side measuring 14 mm. There are hyperdensities in the urinary bladder which suggest calculi. Bilateral inguinal lymph nodes. Normal abdominal wall. There are diffuse degenerative changes of the visualized lumbar spine. CT/Abdomen/Pelvis W IV Cont ONLY IMPRESSION: (NOT LISTED IN ORDER OF SIGNIFICANCE) Right-sided urinary bladder masses may be a neoplasm. Cystoscopy is recommended for evaluation. Other findings as above. Electronically Signed: Ron Stuart MD at 15:54 EDT ,
[2024-02-25 15:05] VITALS: BP 132/77; PULSE 70; RESP 16; O2SAT 97
[2024-02-25 16:18] LABS: Bacteria 0 SEEN /hpf (None Seen); Mucous, Urine 0 SEEN /hpf (<or=2+); Squamous Epithelial Cells - UA 0 SEEN /hpf (0-5)
[2024-02-25 16:29] LABS: Color, Urine Red (Yellow); Glucose, Dipstick Normal (Normal); Ketone-Dipstick Negative (Negative); Leukocyte Esterase-Dipstick 25 /ul (Negative); Nitrite-Dipstick Positive (Negative); Occult Blood-Urine 250 /ul (Negative); Protein-Dipstick 30 mg/dl (Negative); Specific Gravity, Urine 1.005 (1.002-1.030); Urine Bilirubin Dipstick Negative (Negative); Urine Clarity Cloudy (Clear); Urine Urobilinogen Normal (Normal)
[2024-02-25 16:41] LABS: Red Blood Cells-Urine > 100 SEEN /hpf (0-5); White Blood Cells 0-5 SEEN /hpf (0-5)
[2024-02-25 17:00] VITALS: BP 133/80; PULSE 68; RESP 16; O2SAT 97
[2024-02-25 17:53] VITALS: BP 133/80; PULSE 68; RESP 16; TEMP 36.6; O2SAT 97
== END 2024-02-25 17:54 | disposition home or self-care (01) ==
PROVIDERS: Emergency Provider Emergency Medicine; PCP Family Medicine; Visit Provider Emergency Medicine
DX: N32.9 Bladder disorder, unspecified (principal); G20.A1 Parkinson's disease without dyskinesia, without mention of fluctuations; R31.9 Hematuria, unspecified; Z87.891 Personal history of nicotine dependence; Z86.73 Personal history of transient ischemic attack (TIA), and cerebral infarction without residual deficits; Z87.442 Personal history of urinary calculi; Z79.01 Long term (current) use of anticoagulants; I10 Essential (primary) hypertension
CPT/HCPCS: 74177; 80048; 81001; 85025; 87086; 99283; Q9967

== ENCOUNTER 2024-03-20 10:36 | Day surgery (SDC) | payer MEDICARE, OTHER, SELFPAY ==
[2024-03-20] VITALS (11 sets, daily range): BP systolic 127–149; BP diastolic 70–86; PULSE 70–93; RESP 16; TEMP 36.2–37.2; O2SAT 94–97; BMI 25.8
[2024-03-20] MEDS: Lactated Ringers 1,000 ML 15 ML IV ×2 (11:34→14:46)
--- NOTE | 2024-03-20 12:45 | BLB_PTH ---
PATIENT: TRACI COOPER Jr. LOC: [facility] [place] U#:[id number] AGE/SX: 73/M ROOM: RE03/20/[address]: Dr. Merlin Butt MD : 1950 BED: DIS: 03/20/2024 SPEC #: [id number] RECD: 03/20/24 18:18 STATUS: ALBERTO DANIEL #: [id number] ANMOL: 03/20/24 12:[address]: Merlin Butt DEPT: SURGICAL PATHOLOGY RECD BY: Asim Hammond ENTERED: 03/21/24 07:38 SP TYPE: TURB OTHR DR: Dr. Celso Julien MD Tissues: Urinary bladder, NOS Procedures: Surgery Specimen Level V HEADER OPERATION: Cystoscopy, transurethral resection of bladder tumor PRE-OP DIAGNOSIS: Neoplasm of uncertain behavior of bladder, gross hematuria TISSUE SUBMITTED: Bladder tumor and bladder stones MICROSCOPIC DIAGNOSIS Urinary bladder tumor, transurethral resection: Papillary urothelial carcinoma. See synoptic report. JEN/ 03/22/24 COMMENT BLADDER CANCER (TUR) SUMMARY Procedure: Transurethral resection of bladder tumor (TURBT) Tumor site: Not specified Histologic type: Papillary urothelial carcinoma Associated epithelial lesions: None identified Histologic grade: 1/3 (WHO low grade) Tumor configuration: Papillary Muscularis propria presence: Not present Lymphvascular invasion: Not identified Tumor extension: Confined to urothelium Additional pathologic findings: None PATHOLOGIC STAGE: Ta Nx Mx The above summary is in compliance with [employer] [place] [employer] (CAP) Cancer Protocols Checklist and [place] Joint Committee on Cancer (AJCC), Staging Manual, 8th Ed. MICROSCOPIC DESCRIPTION Slides are reviewed. GROSS DESCRIPTION Received in fixative is one container labeled with the patient's name and designated Bladder tumor and bladder stones. The specimen consists of multiple fragments of campbell soft tissue mixed with brown stone fragments measuring in aggregate 4.0 x 3.0 x 0.5cm. Soft tissue is submitted entirely in two cassettes. Stones are for gross identification only. BARBARA/ 03/21/2024 TC:0 CPT:92869
[2024-03-20] MEDS: Cefazolin 2 GM in 0.9% Normal Saline (100mL Bag) 100 ML IV (12:57)
[2024-03-20] MEDS: MitoMYcin 40 MG in Syringe 1 EACH 2400 MG INSTILLAT (13:50)
--- NOTE | 2024-03-20 13:51 | OP.PCM_ITS ---
Report of Operation Date of Procedure: 03/20/24 Pre-Operative Diagnosis: Bladder tumors large and multiple, bladder stones large Post-Operative Diagnosis: Same Surgery/Procedure Performed:: Transurethral resection of a large bladder tumor total size of 5 x 4 cm, also laser of large bladder stones 2 stones total size 4 cm each stone 2 cm in size Description of Surgical Findings:: 73-year-old male presents with gross hematuria CT scan was done that demonstrates multiple stones in the bladder and multiple large tumors in the bladder today renal proceed with a resection of these tumors and removal of bladder stones. Patient is taken back to the operating room at a smooth induction of anesthesia he was placed in dorsolithotomy position the penis testicles were prepped and draped in usual fashion in the bladder with a 21 Estonian rigid cystourethroscope identified the tumor in the right trigone area right over the ureteral orifice identified 2 lateral tumors on the right side of the bladder these appear to be noninvasive the fairly large tumors, then he had 2 large stones in the base of the bladder. I then went in with the resectoscope and resected the first tumor in the trigone area after this tumor was completely resected and cauterized then I went in with a laser and laser the 2 large stones in the bladder take a long time to get the stones lasered got all the pieces out and then went back in with the resectoscope and then found 2 of the tumors in the right lateral wall there up anterior both of these were resected and cauterized I then inspected the bladder completely did have a very large floppy trabeculated bladder he does have a large obstructive prostate put on medical therapy with Flomax and Proscar so successful resection of 2 tumors in the bladder both of them looked to be noninvasive but very large and also successful removal very large stones in the bladder we will put him on medical therapy for BPH and obstruction with Flomax and Proscar see him back in the office for checkup help I need BCG therapy also treatments and then surveillance cystoscopy afterwards. Also prior to leaving the bladder I cannulated the left ureteral orifice with a Pollick catheter and I cannulated the right ureter orifice with a Pollick catheter both ureteral orifices were clear. And then I also placed a Shannon catheter in the bladder and instilled Mitomycin-C chemotherapy in the bladder. Surgeon: Merlin Butt Type of Anesthesia: General Drains: shannon Estimated Blood Loss (mL): 0 Admit VTE Documentation VTE Present on Admission: No VTE Mechan Device Prophylaxis: SCD's VTE Pharm Prophylaxis ordered?: No
--- NOTE | 2024-03-20 13:51 | PCM.HP.STD ---
HPI - General General Date of Admission: 03/20/24 Chief Complaint: Bladder tumors and bladder stones and bladder cancer HPI Narrative TRACI COOPER, is a 73 M who presents for resection of bladder cancer removal bladder stones [facility], [facility] Medical History (Updated 03/13/24 @ 14:33 by Adri Stark) Loss of hearing Wears glasses Cancer Gout Thyroid disease Bladder disease High cholesterol Shortness of breath on exertion Former smoker History of echocardiogram Cardiology follow-up encounter History of atrial fibrillation HTN (hypertension) Hypothyroid Parkinson disease Home Medications ?Medication ?Instructions ?Recorded ?Last Taken ?Type amlodipine 10 mg tablet 10 tab PO DAILY blood pressure 04/19/22 10/19/23 History carbidopa 25 mg-levodopa 100 mg 1 tab PO TID parkinsons 04/19/22 10/19/23 History tablet levothyroxine 50 mcg tablet 50 mcg PO DAILY thyroid 04/19/22 10/19/23 History triamterene 75 1 tab PO DAILY blood pressure 04/19/22 Unknown History mg-hydrochlorothiazide 50 mg tablet allopurinol 100 mg tablet 100 mg PO DAILYCM 60 days #60 tabs 10/21/23 Unknown Rx lisinopril 5 mg tablet 5 mg PO DAILY 60 days #60 tabs 10/21/23 Unknown Rx apixaban 5 mg tablet (Eliquis) 2.5 mg (1/2 x 5 mg) PO BID 60 days 02/25/24 03/16/24 Rx #120 tabs ciprofloxacin HCl 500 mg tablet 500 mg PO BID #10 tabs 03/20/24 Unknown Rx finasteride 5 mg tablet (Proscar) 5 mg PO DAILY #90 tabs 03/20/24 Unknown Rx tamsulosin 0.4 mg capsule (Flomax) 0.4 mg PO DAILY #90 caps 03/20/24 Unknown Rx Allergy/AdvReac Type Severity Reaction Status Date / Time No Known Allergies Allergy Verified 03/20/24 11:08 Surgical History Status post laparoscopic cholecystectomy Social History Smoking Status: Former smoker Vital Signs Vital Signs Vital Signs: 03/20/24 11:11 03/20/24 11:11 Temperature 97.1 F L Temperature Source Temporal Pulse Rate 79 Respiratory Rate 16 Respiratory Pattern Normal Blood Pressure 129/86 H Blood Pressure Mean 100 Blood Pressure Source Monitor Blood Pressure Position Semi-Fowlers Blood Pressure Location Left Arm Pulse Ox 96 Oxygen Delivery Method Room Air Weight Weight: 84 kg Body Mass Index (BMI) 25.8
--- NOTE | 2024-03-20 13:51 | PCM.DC ---
Discharge Instructions Diet Discharge Diet: No restrictions Activity Discharge Activity: Return to Normal Activity and May Not Drive (while taking narcotic pain medications.) Dressing / Incision Call your doctor if you observe: Fever of 101 or Higher Follow Up Care Please Follow Up With: Merlin Butt MD When: Call [phone] for an appointment Test Results: Test results from this visit will be discussed in further detail at your follow-up appointment, if applicable. Discharge Plan Admission Primary Reason for Your Visit: Bladder tumors and bladder stones Attending Provider: Merlin Butt Primary Care Provider: Celso Julien Instructions Print Language: Bangladeshi Discharge Orders/Prescriptions Prescriptions: New tamsulosin [Flomax] 0.4 mg capsule 0.4 mg PO DAILY Qty: 90 3RF finasteride [Proscar] 5 mg tablet 5 mg PO DAILY Qty: 90 3RF ciprofloxacin HCl 500 mg tablet 500 mg PO BID Qty: 10 0RF Continued amlodipine 10 mg tablet 10 tab PO DAILY Patient Comments: TAKE 1 TABLET BY MOUTH EVERY DAY levothyroxine 50 mcg tablet 50 mcg PO DAILY Patient Comments: TAKE 1 TABLET BY MOUTH ONCE DAILY. TAKE ON EMPTY STOMACH. FOR THYROID. triamterene-hydrochlorothiazid 75-50 mg tablet 1 tab PO DAILY Patient Comments: TAKE 1 TABLET BY MOUTH EVERY DAY carbidopa-levodopa 25-100 mg tablet 1 tab PO TID Patient Comments: TAKE 1 TABLET BY MOUTH THREE TIMES A DAY allopurinol 100 mg Tablet 100 mg PO DAILYCM 60 Days Qty: 60 0RF lisinopril 5 mg Tablet 5 mg PO DAILY 60 Days Qty: 60 0RF Eliquis 5 mg Tablet 2.5 mg PO BID 60 Days Qty: 120 0RF Referrals / Follow Up: Merlin Butt MD [Med Staff - Active Staff] - Celso Julien MD [Primary Care Provider] - Disposition Disposition (needs filled in before D/C Order can be placed): Home, Self Care
== END 2024-03-20 17:05 | disposition home or self-care (01) ==
LOC: SDC 10:36 → AC 10:38
PROVIDERS: Anesthesiology; PCP Family Medicine; Referring Provider Urology; Visit Provider Urology
PROC: 0T5B8ZZ Destruction of Bladder, Via Natural or Artificial Opening Endoscopic (ICD-10-PCS; CPT 51720; principal; 2024-03-20 12:35)
DX: C67.0 Malignant neoplasm of trigone of bladder (principal); G20.A1 Parkinson's disease without dyskinesia, without mention of fluctuations; C67.2 Malignant neoplasm of lateral wall of bladder; F02.80 Dementia in other diseases classified elsewhere, unspecified severity, without behavioral disturbance, psychotic disturbance, mood disturbance, and anxiety; N21.0 Calculus in bladder; N40.0 Benign prostatic hyperplasia without lower urinary tract symptoms; N32.89 Other specified disorders of bladder; E78.00 Pure hypercholesterolemia, unspecified; E07.9 Disorder of thyroid, unspecified; I10 Essential (primary) hypertension; M10.9 Gout, unspecified; Z79.01 Long term (current) use of anticoagulants; Z79.890 Hormone replacement therapy; Z79.899 Other long term (current) drug therapy; Z87.891 Personal history of nicotine dependence
CPT/HCPCS: 52235; 51720; 52353; 00912; 36415; 84443; 88307; J7120; J9280; C1769; J2405

== ENCOUNTER 2025-02-19 15:23 | Emergency (ER) | payer MEDICARE, OTHER, SELFPAY ==
[2025-02-19 15:27] VITALS: BP 153/83; PULSE 88; RESP 18; TEMP 37.1; O2SAT 96
--- NOTE | 2025-02-19 15:48 | RAD_ITS ---
PROCEDURE: ABDOMEN SINGLE VIEW (PORTABLE) 02/19/2025 REASON FOR EXAM: CONSTIPATION TECHNIQUE: Single view abdomen. COMPARISON: CT abdomen and pelvis 02/25/2024 FINDINGS: Bowel gas: Nonobstructive bowel gas pattern. Moderate colonic stool. Calcifications: No suspicious calcification Bones: Degenerative changes of the lumbar spine. Other: RAD/Abdomen Single View (Portable) IMPRESSION: Nonobstructive bowel gas pattern. Moderate colonic stool. Reading Location: [facility]
--- NOTE | 2025-02-19 15:48 | EDS_ITS ---
HPI HPI - GI History of Present Illness Chief Complaint: Constipation Detail of Chief Complaint: Constipation Informant: patient Narrative Narrative: Patient presents to the emergency department complaint of constipation. Patient states he has not had a good bowel movement in 5 days. It is not unusual for him to have constipation issues but this is the worst it has been. He denies any abdominal pain. He said no fever. He said no vomiting. He states that he try to use some Vaseline around his anus today and it but did not have much in the way of results. He denies any change in his diet. Does not take narcotic pain medications. [facility] Medical History (Updated 02/19/25 @ 17:[address] Annia Camara, DO) Loss of hearing Wears glasses Cancer Gout Thyroid disease Bladder disease High cholesterol Shortness of breath on exertion Former smoker History of echocardiogram Cardiology follow-up encounter History of atrial fibrillation HTN (hypertension) Hypothyroid Parkinson disease Home Medications ?Medication ?Instructions ?Recorded ?Last Taken ?Type amlodipine 10 mg tablet 10 tab PO DAILY blood pressu re 04/19/22 10/19/23 History carbidopa 25 mg-levodopa 100 mg 1 tab PO TID parkinson s 04/19/22 10/19/23 History tablet levothyroxine 50 mcg tablet 50 mcg PO DAILY thyroid 10/19/23 History triamterene 75 1 tab PO DAILY blood pressur e 04/19/22 Unknown History mg-hydrochlorothiazide 50 mg tablet allopurinol 100 mg tablet 100 mg PO DAILYCM 60 days #6 0 tabs 10/21/23 Unknown Rx lisinopril 5 mg tablet 5 mg PO DAILY 60 days #60 ta bs 10/21/23 Unknown Rx apixaban 5 mg tablet (Eliquis) 2.5 mg (1/2 x 5 mg) PO BID 60 days 02/25/24 03/16/24 Rx #120 tabs ciprofloxacin HCl 500 mg tablet 500 mg PO BID #10 tabs 03/20/24 Unknown Rx finasteride 5 mg tablet (Proscar) 5 mg PO DAILY #90 ta bs 03/20/24 Unknown Rx tamsulosin 0.4 mg capsule (Flomax) 0.4 mg PO DAILY #90 caps 03/20/24 Unknown Rx Allergy/AdvReac Type Severity Reaction Status Date / Time No Known Allergies Allergy Verified 02/19/25 15:24 Surgical History Status post laparoscopic cholecystectomy Social History Smoking Status: Former smoker ROS ROS ED Review of Systems ROS Unobtainable: other Constitutional Constitutional ED: Reports lethargy; Denies chills, fever(s), sweats or weight loss Eyes Eyes: Denies blurry vision, change in vision or diplopia ENT ENT ED: Denies rhinorrhea or sore throat Cardiovascular Cardiovascular: Denies chest pain, orthopnea or racing heartbeat Respiratory/Chest Respiratory/Chest: Denies cough, dyspnea, dyspnea on exertion, orthopnea or sputum Gastrointestinal Gastrointestinal: Reports constipation; Denies abdominal pain, diarrhea, nausea or vomiting Genitourinary Genitourinary ED: Denies dysuria, hematuria or urinary frequency Musculoskeletal Musculoskeletal: Denies arthralgias, back pain, myalgias or neck pain Integumentary Denies abscess, Abrasions or rash Neurologic Neurologic: Denies headache(s) or weakness Psychiatric Psychiatric: Denies anxiety, depression or suicidal thoughts Endocrine Endocrinology: Denies polydipsia, polyphagia or polyuria Hematologic/Lymphatic Hematologic/Lymphatic: Denies easy bleeding, easy bruising or lymphadenopathy Allergic/Immunologic Allergic/Immunologic ED: Denies mouth swelling, tongue swelling or urticaria EXAM Physical Exam Const Vital Signs: 02/19/25 15:27 02/19/25 17:23 Temperature 98.8 F Temperature Source Oral Pulse Rate 88 80 Respiratory Rate 18 15 Blood Pressure 153/83 H Blood Pressure Mean 106 Pulse Ox 96 97 Oxygen Delivery Method Room Air Room Air Positive well nourished and well developed General Appearance ED: well developed and NAD HEENT Reports TM's clear and moist mucous membranes normocephalic and atraumatic; Negative for trauma or tenderness Tympanic Membrane ED: Yes TM's clear Eyes PERRL and EOMs intact bilaterally General Eye ED: Negative for pale conjunctiva or scleral icterus Neck no lymphadenopathy, supple and no JVD General: Negative for tenderness Chest Wall inspection of chest normal and palpation of chest normal Chest: Negative for tenderness Resp normal respiratory effort and clear to auscultation bilaterally Effort and Inspection: Negative for respiratory distress or pain with movement Auscultation: Negative for rhonchi, wheezes or diminished lung sounds Cardio regular rate, regular rhythm, S1 normal heart sound, S2 normal heart sound and no murmurs Peripheral Pulses: pulses 2+ throughout GI normal to inspection, nondistended, normoactive bowel sounds, soft to palpation, non-tender, non-distended and no masses GI Narrative: Rectal exam-patient with stool impaction in the rectum. I manually disimpacted large amount of hard stool. Back/Spine no CVA tenderness and no thoracic nor lumbar tenderness Extremity normal to inspection General Extremety ED: Negative for edema General Extremity: Negative for edema Neuro oriented x3, CN's II-XII intact bilaterally, no sensory deficits noted and gait normal Sensorium / Orientation: awake, alert, oriented to person, oriented to place and oriented to time Motor Exam: strength 5/5 throughout and strength abnormal Psych mental status grossly normal Skin no rashes or lesions noted and no wounds MDM MDM MDM Narrative Medical decision making narrative: Patient presents with constipation and stool impaction. Digitally disimpacted p atient. Will obtain a KUB. Will give a soapsuds enema thereafter. KUB obtained showed no evidence of obstruction with moderate amount of stool throughout the colon. Soapsuds enema he had a difficult time holding the enema and however he had small result with that. At this point not having any abdominal pain and he is not ill-appearing. Not vomiting. Will send him home with a bottle of magnesium citrate. Instructed on use. Advised return if abdominal pain, vomiting, fever, or condition worsen anyway. Radiography Diagnostic Testing: Clinical Impression(s) from Imaging Studies KUB X-Ray 02/19/25 15:48 IMPRESSION: Nonobstructive bowel gas pattern. Moderate colonic stool. Reading Location: [facility] Three-view KUB obtained interpreted by myself as constipation with diffuse stool throughout the colon. Did not see any evidence of obstruction or bowel perforation. Radiology was in agreement. Discharge Plan Triage Chief Complaint: Constipation ED Provider: Annia Camara Dx/Rx/DC Orders Clinical Impression: Constipation Instructions: ED Constipation (Adult) Prescriptions: No Action amlodipine 10 mg tablet 10 tab PO DAILY Patient Comments: TAKE 1 TABLET BY MOUTH EVERY DAY levothyroxine 50 mcg tablet 50 mcg PO DAILY Patient Comments: TAKE 1 TABLET BY MOUTH ONCE DAILY. TAKE ON EMPTY STOMACH. FOR THYROID. triamterene-hydrochlorothiazid 75-50 mg tablet 1 tab PO DAILY Patient Comments: TAKE 1 TABLET BY MOUTH EVERY DAY carbidopa-levodopa 25-100 mg tablet 1 tab PO TID Patient Comments: TAKE 1 TABLET BY MOUTH THREE TIMES A DAY allopurinol 100 mg Tablet 100 mg PO DAILYCM 60 Days Qty: 60 0RF lisinopril 5 mg Tablet 5 mg PO DAILY 60 Days Qty: 60 0RF Eliquis 5 mg Tablet 2.5 mg PO BID 60 Days Qty: 120 0RF tamsulosin [Flomax] 0.4 mg capsule 0.4 mg PO DAILY Qty: 90 3RF finasteride [Proscar] 5 mg tablet 5 mg PO DAILY Qty: 90 3RF ciprofloxacin HCl 500 mg tablet 500 mg PO BID Qty: 10 0RF Primary Care Provider: Celso Julien Referrals: Celso Julien MD [Primary Care Provider] - 3-5 Days Print Language: Turkmen Disposition Disposition: Home, Self Care Discharge Date/Time: 02/19/25 17:31
[2025-02-19 17:23] VITALS: PULSE 80; RESP 15; O2SAT 97
[2025-02-19] MEDS: Magnesium Citrate 300 ML PO (17:28)
== END 2025-02-19 17:31 | disposition home or self-care (01) ==
PROVIDERS: Emergency Provider Emergency Medicine; PCP Family Medicine; Visit Provider Emergency Medicine
DX: K59.00 Constipation, unspecified (principal); I10 Essential (primary) hypertension; E78.00 Pure hypercholesterolemia, unspecified; Z87.891 Personal history of nicotine dependence
CPT/HCPCS: 74018; 99285; A4216

== ENCOUNTER 2025-06-11 18:30 | Emergency (ER) | payer MEDICARE, OTHER, SELFPAY ==
[2025-06-11 18:31] VITALS: BP 115/86; PULSE 79; RESP 16; TEMP 37.1; O2SAT 98
--- NOTE | 2025-06-11 19:12 | CT_ITS ---
EXAM: CT Abdomen and Pelvis With Intravenous Contrast CLINICAL INDICATION: CONSTIPATION TECHNIQUE: Axial computed tomography images of the abdomen and pelvis with intravenous contrast. This CT exam was performed using one or more of the following dose reduction techniques: automated exposure control, adjustment of the mA and/or kV according to patient size, and/or use of iterative reconstruction technique. COMPARISON: CT Abdomen Pelvis dated 02/25/2024 FINDINGS: LUNG BASES: Unremarkable. No mass. No consolidation. HEART: Mild cardiomegaly. MEDIASTINUM: Small esophageal hiatal hernia. ABDOMEN: LIVER: Hepatomegaly with fatty infiltration. GALLBLADDER AND BILE DUCTS: Unremarkable. No calcified stones. No ductal dilation. PANCREAS: Unremarkable. No mass. No ductal dilation. SPLEEN: Unremarkable. No splenomegaly. ADRENALS: Unremarkable. No mass. KIDNEYS AND URETERS: Unremarkable. No solid mass. No hydronephrosis. STOMACH AND BOWEL: Fecal retention in the colon consistent with constipation. No obstruction. No mucosal thickening. PELVIS: APPENDIX: No findings to suggest acute appendicitis. BLADDER: Unremarkable. No mass. REPRODUCTIVE: Unremarkable as visualized. ABDOMEN and PELVIS: INTRAPERITONEAL SPACE: Unremarkable. No free air. No significant fluid collection. BONES/JOINTS: Degenerative disc disease throughout the lumbar spine. Degenerative facet arthropathy throughout the lumbar spine, most prominent in the lower lumbar spine. No acute fracture. No dislocation. SOFT TISSUES: Inguinal hernias, bilaterally. VASCULATURE: Unremarkable. No abdominal aortic aneurysm. LYMPH NODES: Unremarkable. No enlarged lymph nodes. CT/Abdomen/Pelvis W IV Cont ONLY IMPRESSION: 1. Small esophageal hiatal hernia. 2. Hepatomegaly with fatty infiltration. 3. Fecal retention in the colon consistent with constipation. 4. Inguinal hernias, bilaterally. 5. Degenerative changes lumbar spine as described. Reading Location: [id number]
--- NOTE | 2025-06-11 19:28 | EX.ED.DYSGE1 ---
HPI History of Present Illness Chief Complaint: Constipation Narrative Narrative: Chief complaint and HPI: Constipation. 75-year-old male with past medical history of CVA on Eliquis, Parkinson's disease, HTN who presents for evaluation of constipation. Patient states that he intermittently suffers from constipation secondary to his Parkinson's disease. He does not take a daily bowel regiment. Patient states he has not had a bowel movement for the past week. He denies any fever, chills, chest pain, shortness of breath, abdominal pain, dysuria, diarrhea. Review of systems: See HPI Medications: As listed on the chart Allergies: As listed on the chart PFSH: Per chart Vital signs: As listed on the chart. Reviewed. Physical exam: Gen: A&O x3, NAD Head: Normocephalic, atraumatic Eyes: No sclera icterus, conjunctiva clear ENT: Moist mucous membranes Neck: Trachea midline CV: RRR, no murmurs, no peripheral edema Resp: Lungs CTA BL, no w/r/c GI: Abd soft, non-distended, non-tender, no r/r/g Rectal: Normal external examination except for dried bright red blood around the anus, no evidence of hemorrhoids or fissures. Normal tone and sensation. Hard brown stool in the rectal vault. I was able to manually disimpact a lot of the stool. Stool does have some bright red blood streaking. Musc: Full ROM, no deformity Skin: Warm, dry Neuro: Alert, oriented, grossly intact, sensation intact Psych: Cooperative, appropriate mood and affect [facility] Medical History (Updated 06/11/25 @ 22:[address] Ruiz Swann ) Loss of hearing Wears glasses Cancer Gout Thyroid disease Bladder disease High cholesterol Shortness of breath on exertion Former smoker History of echocardiogram Cardiology follow-up encounter History of atrial fibrillation HTN (hypertension) Hypothyroid Parkinson disease Home Medications ?Medication ?Instructions ?Recorded ?Last Taken ?Type amlodipine 10 mg tablet 10 tab PO DAILY blood pressure 04/19/22 10/19/23 History carbidopa 25 mg-levodopa 100 mg 1 tab PO TID parkinsons 04/19/22 10/19/23 History tablet levothyroxine 50 mcg tablet 50 mcg PO DAILY thyroid 04/19/22 10/19/23 History triamterene 75 1 tab PO DAILY blood pressure 04/19/22 Unknown History mg-hydrochlorothiazide 50 mg tablet allopurinol 100 mg tablet 100 mg PO DAILYCM 60 days #60 tabs 10/21/23 Unknown Rx lisinopril 5 mg tablet 5 mg PO DAILY 60 days #60 tabs 10/21/23 Unknown Rx apixaban 5 mg tablet (Eliquis) 2.5 mg (1/2 x 5 mg) PO BID 60 days 02/25/24 03/16/24 Rx #120 tabs ciprofloxacin HCl 500 mg tablet 500 mg PO BID #10 tabs 03/20/24 Unknown Rx finasteride 5 mg tablet (Proscar) 5 mg PO DAILY #90 tabs 03/20/24 Unknown Rx tamsulosin 0.4 mg capsule (Flomax) 0.4 mg PO DAILY #90 caps 03/20/24 Unknown Rx polyethylene glycol 3350 17 17 g PO DAILY #119 grams 06/11/25 Unknown Rx gram/dose oral powder (Miralax) sennosides 8.6 mg-docusate sodium 1 tab-cap PO DAILY 14 days #14 tabs 06/11/25 Unknown Rx 50 mg tablet (Senna with Docusate Sodium) Allergy/AdvReac Type Severity Reaction Status Date / Time No Known Allergies Allergy Verified 06/11/25 18:32 Surgical History Status post laparoscopic cholecystectomy Social History Smoking Status: Former smoker EXAM Physical Exam Const Vital Signs: 06/11/25 18:31 06/11/25 20:30 Temperature 98.7 F Temperature Source Oral Pulse Rate 79 100 Respiratory Rate 16 18 Blood Pressure 115/86 H 130/75 H Blood Pressure Mean 95 93 Pulse Ox 98 98 Oxygen Delivery Method Room Air MDM MDM MDM Narrative Medical decision making narrative: 75-year-old male with past medical history of CVA on Eliquis, Parkinson's disease, HTN who presents for evaluation of constipation. Patient states that he intermittently suffers from constipation secondary to his Parkinson's disease. He does not take a daily bowel regiment. Has not had a bowel movement in 1 week. See physical exam findings. I was able to manually disimpact some of the stool in the rectal vault. Patient did have some streaking of bright red blood. Given the bright red blood, we will performed basic labs with CT abdomen and pelvis. Differential diagnosis includes but is not limited to constipation, electrolyte abnormality, GI bleed, colitis. CBC without leukocytosis or anemia. BMP unremarkable. Lactic acid unremarkable. CT abdomen pelvis shows small esophageal hiatal hernia. Hepatomegaly. Fecal retention in the colon consistent with constipation. Bilateral inguinal hernias. Patient's symptoms are likely secondary to constipation from Parkinson's disease. I suspect that the bright red blood streaking is secondary to the constipation as well. Soapsuds enema ordered. Patient had some relief. Recommended drinking plenty of fluids. Given prescription for docusate senna and MiraLAX as a bowel regiment. Follow-up with PCP. He confirmed understanding the plan. Return precautions explained. They stable to discharge home. Impression: 1. Constipation 2. History of constipation with Parkinson's disease Lab Data Labs: Laboratory Results - last 24 hr 06/11/25 19:31 WBC 10.7 RBC 5.34 Hgb 15.1 Hct 44.4 MCV 83.1 MCH 28.3 MCHC 34.0 RDW Std Deviation 39.6 RDW Coeff of Navneet 13.2 Plt Count 213 MPV 10.4 Immature Gran % (Auto) 0.400 Neut % (Auto) 72.5 H Lymph % (Auto) 13.2 L Callahan % (Auto) 11.6 H Eos % (Auto) 1.4 Baso % (Auto) 0.9 Absolute Neuts (auto) 7.8 H Absolute Lymphs (auto) 1.41 Nucleated RBC % 0 Sodium 137 Potassium 3.9 Chloride 99 Carbon Dioxide 25.6 Anion Gap 13 BUN 27 H Creatinine 1.19 Est GFR (MDRD) Non-Af 63 BUN/Creatinine Ratio 22.5 H Glucose 89 Lactic Acid < 1.0 Calcium 9.4 Radiography Diagnostic Testing: Clinical Impression(s) from Imaging Studies Abdomen/Pelvis CT 06/11/25 19:12 IMPRESSION: 1. Small esophageal hiatal hernia. 2. Hepatomegaly with fatty infiltration. 3. Fecal retention in the colon consistent with constipation. 4. Inguinal hernias, bilaterally. 5. Degenerative changes lumbar spine as described. Reading Location: [facility] Discharge Plan Triage Chief Complaint: Constipation ED Provider: Ruiz Swann Dx/Rx/DC Orders Clinical Impression: Constipation Instructions: Treating Constipation, ED Constipation (Adult) Prescriptions: New polyethylene glycol 3350 [Miralax] 17 gram/dose powder 17 g PO DAILY Qty: 119 0RF sennosides-docusate sodium [Senna with Docusate Sodium] 8.6-50 mg tablet 1 tab-cap PO DAILY 14 Days Qty: 14 0RF No Action amlodipine 10 mg tablet 10 tab PO DAILY Patient Comments: TAKE 1 TABLET BY MOUTH EVERY DAY levothyroxine 50 mcg tablet 50 mcg PO DAILY Patient Comments: TAKE 1 TABLET BY MOUTH ONCE DAILY. TAKE ON EMPTY STOMACH. FOR THYROID. triamterene-hydrochlorothiazid 75-50 mg tablet 1 tab PO DAILY Patient Comments: TAKE 1 TABLET BY MOUTH EVERY DAY carbidopa-levodopa 25-100 mg tablet 1 tab PO TID Patient Comments: TAKE 1 TABLET BY MOUTH THREE TIMES A DAY allopurinol 100 mg Tablet 100 mg PO DAILYCM 60 Days Qty: 60 0RF lisinopril 5 mg Tablet 5 mg PO DAILY 60 Days Qty: 60 0RF Eliquis 5 mg Tablet 2.5 mg PO BID 60 Days Qty: 120 0RF tamsulosin [Flomax] 0.4 mg capsule 0.4 mg PO DAILY Qty: 90 3RF finasteride [Proscar] 5 mg tablet 5 mg PO DAILY Qty: 90 3RF ciprofloxacin HCl 500 mg tablet 500 mg PO BID Qty: 10 0RF Primary Care Provider: Celso Julien Referrals: Celso Julien MD [Primary Care Provider] - 3-5 Days Activity Restrictions/Additional Instructions: Follow-up with your primary care physician. Return back to the ED if symptoms change or worsen. Drink plenty of fluids Print Language: Peruvian Disposition Disposition: Home, Self Care
[2025-06-11 19:45] LABS: Hematocrit 44.4 % (40-54); Hemoglobin 15.1 g/dL (13.0-16.5); Immature Granulocytes Count 0.040 X10^3/uL (0.0-0.0); Mean Corp Hgb Conc 34.0 g/dL (32-36); Mean Corpuscular Volume 83.1 fL (80-94); Mean Platelet Vol. 10.4 fl (6.2-12.0); NRBC Flagged by Analyzer 0 % (0-5); Platelet Count 213 K/mm3 (150-450); RBC Distribution Width CV 13.2 % (11.6-14.6); RBC Distribution Width SD 39.6 fl (35.1-43.9); Red Blood Count 5.34 M/mm3 (4.6-6.2); White Blood Count 10.7 K/mm3 (4.4-11.0)
[2025-06-11 20:26] LABS: Anion Gap 13 (5-15); BUN 27 mg/dL (4-19); BUN/Creat Ratio 22.5 RATIO (10-20); Calcium,Total 9.4 mg/dL (7.6-11.0); Carbon Dioxide 25.6 mmol/L (21.0-32.0); Chloride 99 mmol/L (98-108); Glucose 89 mg/dL (70-99); Potassium 3.9 mmol/L (3.3-5.1)
[2025-06-11 20:30] VITALS: BP 130/75; PULSE 100; RESP 18; O2SAT 98
[2025-06-11 22:27] VITALS: BP 129/78; PULSE 100; RESP 18; TEMP 36.6; O2SAT 98
== END 2025-06-11 22:51 | disposition home or self-care (01) ==
PROVIDERS: Emergency Provider Surgery; PCP Family Medicine; Visit Provider Surgery
DX: K59.00 Constipation, unspecified (principal); G20.A1 Parkinson's disease without dyskinesia, without mention of fluctuations; K44.9 Diaphragmatic hernia without obstruction or gangrene; K40.20 Bilateral inguinal hernia, without obstruction or gangrene, not specified as recurrent; I10 Essential (primary) hypertension; Z87.891 Personal history of nicotine dependence; E78.00 Pure hypercholesterolemia, unspecified; R16.0 Hepatomegaly, not elsewhere classified; Z86.73 Personal history of transient ischemic attack (TIA), and cerebral infarction without residual deficits; Z79.01 Long term (current) use of anticoagulants
CPT/HCPCS: 74177; 80048; 83605; 85025; 99285; Q9967; A4216

== ENCOUNTER 2025-07-15 12:40 | Emergency (ER) | payer MEDICARE, OTHER, SELFPAY ==
--- OUTSIDE RECORDS SUMMARY | 2025-07-15 12:23 | XMS RPT_ITS ---
Author Name Auto Generated Organization [facility] Care Team Providers Care Crate Builder Name Role Phone MANUELA PHAM Attending Unavailable SELF Referring Unavailable SUPPAN, DANIELLA A Primary Care Unavailable SADE BECKMAN Attending Unavailable SADE BECKMAN Referring Unavailable SUPPAN, DANIELLA A Primary Care Unavailable YANIRA GAMBLE Attending Unavailable SUPPAN, DANIELLA A Primary Care Unavailable SUPPAN, DANIELLA A Primary Care Unavailable MARVIN GRACE Attending Unavailable SUPPAN, DANIELLA A Primary Care Unavailable SUPPAN, DANIELLA A Referring Unavailable SUPPAN, DANIELLA A Primary Care Unavailable SUPPAN, DANIELLA A Attending Unavailable SUPPAN, DANIELLA A Primary Care Unavailable SADE BECKMAN Attending Unavailable SADE BECKMAN Referring Unavailable SUPPAN, DANIELLA A Primary Care Unavailable SUPPAN, DANIELLA A Attending Unavailable ANGELICA MARTINES Primary Care Unavailable SUPPAN, DANIELLA A Referring Unavailable ANGELICA MARTINES Primary Care Unavailable YANIAR GAMBLE Attending Unavailable ANGELICA MARTINES Primary Care Unavailable SUPPAN, DANIELLA A Primary Care Unavailable CARMEN AVILES Attending Unavailable SUPPAN, DANIELLA A Primary Care Unavailable DORI CHASE Attending Unavailable PROBLEMS DATE TYPE CONDITION / CODE ATTENDING STATUS [facility] 07/15/2025 Active Confusion / R41.0(ICD-10) CARMEN AVILES Active [facility] 06/30/2025 Active Epistaxis / R04.0(ICD-10) DORI CHASE Active [facility] 06/18/2025 Active Chronic constipa tion / K59.09(ICD-10) MANUELA PHAM Active [facility] 06/05/2024 Active Parkinson's dise ase without dyskinesia or fluctuating manifestations (HCC) / G20.A1(ICD-10) SADE BECKMAN Active [facility] 06/09/2025 Active Orthostatic hypo tension / I95.1(ICD-10) SADE BECKMAN Active [facility] 06/09/2025 Active Constipation, unspecified constipation type / K59.00(ICD-10) SADE BECKMAN Active [facility] 02/26/2025 Active Follow Up / UNK(Unknown) AMANDA GAMBLE Active [facility] 02/19/2025 Active Acute gout of ri ght foot, unspecified cause / M10.9(ICD-10) LEONORAGILCANDELARIAEstrada Overton Active [facility] 05/06/2021 Active Hypothyroidism, acquired / E03.9(ICD-10) NA Active [facility] PROCEDURES No Procedure Records Found RESULTS PROGRESS Observed: 07/15/2025 12:31 PM Status: COMPLETED Source: [facility] HNO ID: [id number] Author: CARMEN AVILES APRN.[employer] Service: ? Author Type: Nurse Practitioner Type: Progress Notes Filed: 07/15/2025 12:32 Note Text: Patient came in with complaints of nosebleed. Patient says he had on before going to ENT got cauterized did seem to be good for a little bit but again started bleeding this morning. Patient is on Eliquis. Patient also says he noticed some confusion within himself today put his shoes on the wrong feet. Patient does have history of TIAs. Patient says he is not sure if that is what is happening. Informed family member that we are unable to work him up for these issues. That he should go to the ER. Offered squad and wheelchair both refused. Family member will take him now. CNOV Observed: 07/15/2025 12:30 PM Status: COMPLETED Source: [facility] Office Visit ([place]) TRACI COOPER JR. ([id number]) 1950 M Date Time Provider Department 07/15/25 12:30 PM CARMEN AVILES During your visit today, we recorded the following information about you: Carmen Aviles APRN.ALIVIA 07/15/2025 12:32 PM Signed Patient came in with complaints of nosebleed. Patient says he had on before going to ENT got cauterized did seem to be good for a little bit but again started bleeding this morning. Patient is on Eliquis. Patient also says he noticed some confusion within himself today put his shoes on the wrong feet. Patient does have history of TIAs. Patient says he is not sure if that is what is happening. Informed family member that we are unable to work him up for these issues. That he should go to the ER. Offered squad and wheelchair both refused. Family member will take him now. Allergies As of Date: 07/15/2025 Noted Allergy Reaction ABILIFY (ARIPIPRAZOLE) 12/09/2024 15 - Contraindication-Medical Mai* Comments: People with Parkinson's disease should not take this or other antipsychotics except Nuplazid, Seroquel, and Clozaril can be prescribed. COMPAZINE (PROCHLORPERAZINE) 12/09/2024 15 - Contraindication-Medical Mai* Comments: This should not be given to people with Parkinson's disease. If not otherwise contraindicated, Zofran should be given instead. HALDOL (HALOPERIDOL) 12/09/2024 15 - Contraindication-Medical Mai* Comments: .ewhal PHENERGAN (PROMETHAZINE) 12/09/2024 15 - Contraindication-Medical Mai* Comments: This should not be given to people with Parkinson's disease. If not otherwise contraindicated, Zofran should be given instead. REGLAN (METOCLOPRAMIDE) 12/09/2024 15 - Contraindication-Medical Mai* Comments: This should not be given to people with Parkinson's disease. If not otherwise contraindicated and for nausea, Zofran should be given instead. ZYPREXA (OLANZAPINE) 06/09/2025 15 - Contraindication-Medical Mai* Date Reviewed: 06/30/2025 Reviewed by: Dori Chase APRN.[employer] - Fully Assessed Primary Visit Diagnosis:Confusion [R41.0] Prescriptions as of 07/15/2025 - oxymetazoline (AFRIN, OXYMETAZOLINE,) 0.05 % nasal spray Use 2 sprays in the nose two times a day. - metoprolol succinate ER (TOPROL XL) 50 mg 24 hr tablet Take 1 tablet by mouth once daily. - polyethylene glycol 3350 (MIRALAX) 17 gram/dose powder Dissolve dose in 4 - 8 ounces of liquid and take 1-2 times daily until stooling, then decrease to once daily. - bisacodyl (DULCOLAX, BISACODYL,) 10 mg supp 1 suppository by RECTAL route once daily as needed for constipation. - levothyroxine (SYNTHROID) 100 mcg tablet Take 1 tablet by mouth once daily. Take on empty stomach. For Thyroid. - lisinopril (ZESTRIL) 5 mg tablet Take 1 tablet by mouth once daily. - apixaban (ELIQUIS) 5 mg tab(s) Take 1 tablet by mouth two times a day. - carbidopa-levodopa (SINEMET 25-100) 25-100 mg per tablet Take 1 tablet by mouth three times a day. - amLODIPine (NORVASC) 10 mg tablet Take 1 tablet by mouth once daily. Problem List As Of Date 07/15/2025 Noted Resolved BENIGN HYPERTENSION [I10] 12/22/2006 11/05/2007 TRANSIENT CEREBRAL ISCHEMIA NOS [G45.9] 12/22/2006 Hyperlipemia [E78.5] 04/23/2007 CALCULUS OF KIDNEY [N20.0] 06/08/2007 Essential hypertension [I10] 11/05/2007 Gout with manifestations [M10.9] 10/19/2016 Calculus of gallbladder without cholecystitis w*11/30/2017 02/14/2023 Gallbladder polyp [K82.4] 11/30/2017 02/14/2023 Fatty liver [K76.0] 11/30/2017 Posterior vitreous detachment of left eye [H43.*01/02/2018 Vitreous floaters of both eyes [H43.393] 01/02/2018 Parkinson's disease without dyskinesia or fluct*08/21/2019 Anxiety [F41.9] 08/21/2019 Restless legs syndrome [G25.81] 08/21/2019 02/11/2022 REM sleep behavior disorder [G47.52] 08/21/2019 Hypothyroidism, acquired [E03.9] 05/06/2021 Bilateral carotid artery stenosis [I65.23] 05/31/2021 Thyroid nodule [E04.1] 07/22/2021 Abrasion of upper extremity [S40.819A] 11/21/2023 Diagnosed: 11/21/2023 Acute cholecystitis [K81.0] 11/21/2023 Diagnosed: 11/21/2023 Atrial fibrillation (HCC) [I48.91] 11/21/2023 Diagnosed: 11/21/2023 Epigastric pain [R10.13] 05/20/2022 Diagnosed: 11/21/2023 Gastroesophageal reflux disease [K21.9] 11/21/2023 Diagnosed: 11/21/2023 High serum creatinine [R79.89] 11/21/2023 Diagnosed: 11/21/2023 History of brain disorder [Z86.69] 11/21/2023 Diagnosed: 11/21/2023 Bladder stones [N21.0] 12/05/2023 Encounter Status:Closed by CARMEN AVILES on 07/15/25 DAMON Observed: 06/30/2025 1:45 PM Status: COMPLETED Source: [facility] Office Visit (CORIE) TRACI COOPER JR. ([id number]) 1950 M Date Time Provider Department 06/30/25 1:45 PM DORI CHASE During your visit today, we recorded the following information about you: Temperature Pulse Respiration Blood pressure 98.3 degrees 110/minute 16/minute 124/70 Weight 88.3 kg Dori Chase APRN.[employer]ER 06/30/2025 2:46 PM Signed [facility] Subjective Traci Cooper Jr. is a 75 year old male. Patient presents with: Nose Bleed: x 2 days HPI Nontoxic-appearing 75-year-old male presents urgent care chief complaint episodic nosebleeds. Duration of symptoms on and off for the last 2 weeks. Has became more frequent last 2 days. States the last 48 hours he has had 2-3 nosebleeds lasting 2 to 3 minutes at a time. Risk factors Eliquis. No trauma. Overall feels well. No weakness nausea vomiting syncopal episodes or dizziness. Past medical history prescription medications and allergies reviewed Review of Systems Constitutional: Negative for activity change, diaphoresis, fatigue and fever. HENT: Positive for nosebleeds. Musculoskeletal: Negative for arthralgias, back pain, gait problem, joint swelling, myalgias, neck pain and neck stiffness. Skin: Negative for pallor, rash and wound. Neurological: Negative for dizziness, seizures, syncope, weakness, light-headedness, numbness and headaches. Psychiatric/Behavioral: Negative for confusion. Objective BP 124/70 Pulse 110 Temp 36.8 ?C (98.3 ?F) Resp 16 Wt 88.3 kg (194 lb 10.7 oz) SpO2 97% BMI 27.15 kg/m? Hr 93 Physical Exam Constitutional: Appearance: Normal appearance. He is normal weight. HENT: Head: Normocephalic. Nose: Right Nostril: No epistaxis, septal hematoma or occlusion. Left Nostril: No epistaxis, septal hematoma or occlusion. Eyes: Conjunctiva/sclera: Conjunctivae normal. Cardiovascular: Rate and Rhythm: Normal rate. Pulmonary: Effort: Pulmonary effort is normal. Musculoskeletal: Cervical back: Normal range of motion. Skin: Findings: No rash. Neurological: General: No focal deficit present. Mental Status: He is alert and oriented to person, place, and time. Mental status is at baseline. {ASSESSMENT/PLAN: 1. Epistaxis - ICD9: 784.7, ICD10: R04.0 Diagnosis epistaxis. No active bleeding. We discussed how to apply pressure if bleeding does recur. We discussed she can use Afrin prior to plain nasal pressure. ER red flags discussed. Following with ENT tomorrow. Patient was educated on supportive therapies. Patient will follow up with primary care provider as needed. Patient was instructed to immediately proceed to emergency room for any new, worsening, or symptoms lasting longer than anticipated. The patient's clinical presentation is otherwise unremarkable at this time. Based on exam and clinical finding, the patient is stable for discharge. Plan of care was discussed with patient. Patient verbalizes understanding and agrees to plan of care. This note was generated using Clever software. It may contain errors in wording, punctuation, or spelling. Dori Chase APRN.[facility] History and Record Review Clinical information obtained from an independent historian. History obtained from or confirmed by: parent. External record(s) reviewed: prior outpatient record. Disposition The patient was discharged. OTC Medications were advised: Procedures Allergies As of Date: 06/30/2025 Noted Allergy Reaction ABILIFY (ARIPIPRAZOLE) 12/09/2024 15 - Contraindication-Medical Mai* Comments: People with Parkinson's disease should not take this or other antipsychotics except Nuplazid, Seroquel, and Clozaril can be prescribed. COMPAZINE (PROCHLORPERAZINE) 12/09/2024 15 - Contraindication-Medical Mai* Comments: This should not be given to people with Parkinson's disease. If not otherwise contraindicated, Zofran should be given instead. HALDOL (HALOPERIDOL) 12/09/2024 15 - Contraindication-Medical Mai* Comments: .ewhal PHENERGAN (PROMETHAZINE) 12/09/2024 15 - Contraindication-Medical Mai* Comments: This should not be given to people with Parkinson's disease. If not otherwise contraindicated, Zofran should be given instead. REGLAN (METOCLOPRAMIDE) 12/09/2024 15 - Contraindication-Medical Mai* Comments: This should not be given to people with Parkinson's disease. If not otherwise contraindicated and for nausea, Zofran should be given instead. ZYPREXA (OLANZAPINE) 06/09/2025 15 - Contraindication-Medical Mai* Date Reviewed: 06/30/2025 Reviewed by: Dori Chase APRN.[facility] - Fully Assessed Reason for Visit: Nose Bleed [204] Cmt: x 2 days Primary Visit Diagnosis:Epistaxis [R04.0] Order(s):oxymetazoline (AFRIN, OXYMETAZOLINE,) 0.05 % nasal sprayUse 2 sprays in the nose two times a day.Disp: 22 mLRfl: 0 Prescriptions as of 06/30/2025 - oxymetazoline (AFRIN, OXYMETAZOLINE,) 0.05 % nasal spray Use 2 sprays in the nose two times a day. - metoprolol succinate ER (TOPROL XL) 50 mg 24 hr tablet Take 1 tablet by mouth once daily. - polyethylene glycol 3350 (MIRALAX) 17 gram/dose powder Dissolve dose in 4 - 8 ounces of liquid and take 1-2 times daily until stooling, then decrease to once daily. - bisacodyl (DULCOLAX, BISACODYL,) 10 mg supp 1 suppository by RECTAL route once daily as needed for constipation. - levothyroxine (SYNTHROID) 100 mcg tablet Take 1 tablet by mouth once daily. Take on empty stomach. For Thyroid. - lisinopril (ZESTRIL) 5 mg tablet Take 1 tablet by mouth once daily. - apixaban (ELIQUIS) 5 mg tab(s) Take 1 tablet by mouth two times a day. - carbidopa-levodopa (SINEMET 25-100) 25-100 mg per tablet Take 1 tablet by mouth three times a day. - amLODIPine (NORVASC) 10 mg tablet Take 1 tablet by mouth once daily. Problem List As Of Date 06/30/2025 Noted Resolved BENIGN HYPERTENSION [I10] 12/22/2006 11/05/2007 TRANSIENT CEREBRAL ISCHEMIA NOS [G45.9] 12/22/2006 Hyperlipemia [E78.5] 04/23/2007 CALCULUS OF KIDNEY [N20.0] 06/08/2007 Essential hypertension [I10] 11/05/2007 Gout with manifestations [M10.9] 10/19/2016 Calculus of gallbladder without cholecystitis w*11/30/2017 02/14/2023 Gallbladder polyp [K82.4] 11/30/2017 02/14/2023 Fatty liver [K76.0] 11/30/2017 Posterior vitreous detachment of left eye [H43.*01/02/2018 Vitreous floaters of both eyes [H43.393] 01/02/2018 Parkinson's disease without dyskinesia or fluct*08/21/2019 Anxiety [F41.9] 08/21/2019 Restless legs syndrome [G25.81] 08/21/2019 02/11/2022 REM sleep behavior disorder [G47.52] 08/21/2019 Hypothyroidism, acquired [E03.9] 05/06/2021 Bilateral carotid artery stenosis [I65.23] 05/31/2021 Thyroid nodule [E04.1] 07/22/2021 Abrasion of upper extremity [S40.819A] 11/21/2023 Diagnosed: 11/21/2023 Acute cholecystitis [K81.0] 11/21/2023 Diagnosed: 11/21/2023 Atrial fibrillation (HCC) [I48.91] 11/21/2023 Diagnosed: 11/21/2023 Epigastric pain [R10.13] 05/20/2022 Diagnosed: 11/21/2023 Gastroesophageal reflux disease [K21.9] 11/21/2023 Diagnosed: 11/21/2023 High serum creatinine [R79.89] 11/21/2023 Diagnosed: 11/21/2023 History of brain disorder [Z86.69] 11/21/2023 Diagnosed: 11/21/2023 Bladder stones [N21.0] 12/05/2023 Prescriptions ordered this encounter Disp Refills Start End OXYMETAZOLINE 0.05 % NASAL SPRAY 22 mL 0 06/30/2025 Route: NASAL Sig: Use 2 sprays in the nose two times a day. Level of Service: OFFICE/OUTPATIENT ESTABLISHED LOW [facility] 20 MIN [03591] Encounter Status:Closed by DORI CHASE on 06/30/25 PROGRESS Observed: 06/30/2025 1:42 PM Status: COMPLETED Source: [facility] HNO ID: [id number] Author: DORI CHASE APRN.[employer] Service: ? Author Type: Nurse Practitioner Type: Progress Notes Filed: 06/30/2025 14:46 Note Text: [facility] Rowell Traci Cooper Jr. is a 75 year old male. Patient presents with: Nose Bleed: x 2 days HPI Nontoxic-appearing 75-year-old male presents urgent care chief complaint episodic nosebleeds. Duration of symptoms on and off for the last 2 weeks. Has became more frequent last 2 days. States the last 48 hours he has had 2-3 nosebleeds lasting 2 to 3 minutes at a time. Risk factors Eliquis. No trauma. Overall feels well. No weakness nausea vomiting syncopal episodes or dizziness. Past medical history prescription medications and allergies reviewed Review of Systems Constitutional: Negative for activity change, diaphoresis, fatigue and fever. HENT: Positive for nosebleeds. Musculoskeletal: Negative for arthralgias, back pain, gait problem, joint swelling, myalgias, neck pain and neck stiffness. Skin: Negative for pallor, rash and wound. Neurological: Negative for dizziness, seizures, syncope, weakness, light-headedness, numbness and headaches. Psychiatric/Behavioral: Negative for confusion. Objective BP 124/70 Pulse 110 Temp 36.8 ?C (98.3 ?F) Resp 16 Wt 88.3 kg (194 lb 10.7 oz) SpO2 97% BMI 27.15 kg/m? Hr 93 Physical Exam Constitutional: Appearance: Normal appearance. He is normal weight. HENT: Head: Normocephalic. Nose: Right Nostril: No epistaxis, septal hematoma or occlusion. Left Nostril: No epistaxis, septal hematoma or occlusion. Eyes: Conjunctiva/sclera: Conjunctivae normal. Cardiovascular: Rate and Rhythm: Normal rate. Pulmonary: Effort: Pulmonary effort is normal. Musculoskeletal: Cervical back: Normal range of motion. Skin: Findings: No rash. Neurological: General: No focal deficit present. Mental Status: He is alert and oriented to person, place, and time. Mental status is at baseline. {ASSESSMENT/PLAN: 1. Epistaxis - ICD9: 784.7, ICD10: R04.0 Diagnosis epistaxis. No active bleeding. We discussed how to apply pressure if bleeding does recur. We discussed she can use Afrin prior to plain nasal pressure. ER red flags discussed. Following with ENT tomorrow. Patient was educated on supportive therapies. Patient will follow up with primary care provider as needed. Patient was instructed to immediately proceed to emergency room for any new, worsening, or symptoms lasting longer than anticipated. The patient's clinical presentation is otherwise unremarkable at this time. Based on exam and clinical finding, the patient is stable for discharge. Plan of care was discussed with patient. Patient verbalizes understanding and agrees to plan of care. This note was generated using Clever software. It may contain errors in wording, punctuation, or spelling. Dori Chase APRN.[employer] History and Record Review Clinical information obtained from an independent historian. History obtained from or confirmed by: parent. External record(s) reviewed: prior outpatient record. Disposition The patient was discharged. OTC Medications were advised: Procedures CNPN Observed: 06/30/2025 12:00 AM Status: COMPLETED Source: [facility] Telephone ([place]) TRACI COOPER JR. ([id number]) 1950 M Date Time Provider Department 06/30/25 YANIRA GAMBLE During your visit today, we recorded the following information about you: Kristin Kumar RN 06/30/2025 3:16 PM Signed Pt called stating that he has been experiencing nose bleeds and is currently taking Eliquis 5 mg BID. Had an appt on with PCP office today OV with Rigoberto Chase 06/30/2025: Patient presents with: Nose Bleed: x 2 days HPI Nontoxic-appearing 75-year-old male presents urgent care chief complaint episodic nosebleeds. Duration of symptoms on and off for the last 2 weeks. Has became more frequent last 2 days. States the last 48 hours he has had 2-3 nosebleeds lasting 2 to 3 minutes at a time. Risk factors Eliquis. No trauma. Overall feels well. No weakness nausea vomiting syncopal episodes or dizziness. Past medical history prescription medications and allergies reviewed ASSESSMENT/PLAN: 1. Epistaxis - ICD9: 784.7, ICD10: R04.0 Diagnosis epistaxis. No active bleeding. We discussed how to apply pressure if bleeding does recur. We discussed she can use Afrin prior to plain nasal pressure. ER red flags discussed. Following with ENT tomorrow. Patient was educated on supportive therapies. Patient will follow up with primary care provider as needed. Patient was instructed to immediately proceed to emergency room for any new, worsening, or symptoms lasting longer than anticipated. The patient's clinical presentation is otherwise unremarkable at this time. Based on exam and clinical finding, the patient is stable for discharge. Plan of care was discussed with patient. Patient verbalizes understanding and agrees to plan of care. This note was generated using Clever software. It may contain errors in wording, punctuation, or spelling. DENIA: 02/26/[address] Gamble ASSESSMENT/PLAN: 1. New onset atrial fibrillation (HCC) - ICD9: 427.31, ICD10: I48.91 [id number] 5. He reports heart rates in the 50s at home. Regular rhythm on exam. - On Eliquis 5 mg p.o. bid. Denies any bleeding or falls or trauma. - On metoprolol 50 mg po daily. Tolerating well. - He would like to f/u in 6 months, sooner if medically necessary. Yanira Gamble MD 06/30/2025 6:28 PM Signed No since it resolves within 2 to 3 minutes. I have placed an order for CBC which he can proceed to the lab to check if his nose bleeds continue. Follow-up with his PCP and ENT. Yanira Gamble MD 06/30/2025 6:28 PM Signed Addended by: YANIRA GAMBLE on: 06/30/2025 06:28 PM Modules accepted: Orders Terrance Mercedes RN 07/01/2025 10:18 AM Signed Called pt to review message, left VM to call us back Terrance Mercedes RN 07/03/2025 2:04 PM Signed Called pt Informed him of Dr. Gamble message, He will look to get lab done. Allergies As of Date: 06/30/2025 Noted Allergy Reaction ABILIFY (ARIPIPRAZOLE) 12/09/2024 15 - Contraindication-Medical Mai* Comments: People with Parkinson's disease should not take this or other antipsychotics except Nuplazid, Seroquel, and Clozaril can be prescribed. COMPAZINE (PROCHLORPERAZINE) 12/09/2024 - Contraindication-Medical Mai* Comments: This should not be given to people with Parkinson's disease. If not otherwise contraindicated, Zofran should be given instead. HALDOL (HALOPERIDOL) 12/09/2024 15 - Contraindication-Medical Mai* Comments: .ewhal PHENERGAN (PROMETHAZINE) 12/09/2024 15 - Contraindication-Medical Mai* Comments: This should not be given to people with Parkinson's disease. If not otherwise contraindicated, Zofran should be given instead. REGLAN (METOCLOPRAMIDE) 12/09/2024 15 - Contraindication-Medical Mai* Comments: This should not be given to people with Parkinson's disease. If not otherwise contraindicated and for nausea, Zofran should be given instead. ZYPREXA (OLANZAPINE) 06/09/2025 15 - Contraindication-Medical Mai* Date Reviewed: 06/30/2025 Reviewed by: Dori Chase APRN.[employer] - Fully Assessed Primary Visit Diagnosis:Bleeding from the nose [R04.0] Order(s):COMPLETE BLOOD COUNT [CB] Order #: [id number] FUTURE Prescriptions as of 07/03/2025 - oxymetazoline (AFRIN, OXYMETAZOLINE,) 0.05 % nasal spray Use 2 sprays in the nose two times a day. - metoprolol succinate ER (TOPROL XL) 50 mg 24 hr tablet Take 1 tablet by mouth once daily. - polyethylene glycol 3350 (MIRALAX) 17 gram/dose powder Dissolve dose in 4 - 8 ounces of liquid and take 1-2 times daily until stooling, then decrease to once daily. - bisacodyl (DULCOLAX, BISACODYL,) 10 mg supp 1 suppository by RECTAL route once daily as needed for constipation. - levothyroxine (SYNTHROID) 100 mcg tablet Take 1 tablet by mouth once daily. Take on empty stomach. For Thyroid. - lisinopril (ZESTRIL) 5 mg tablet Take 1 tablet by mouth once daily. - apixaban (ELIQUIS) 5 mg tab(s) Take 1 tablet by mouth two times a day. - carbidopa-levodopa (SINEMET 25-100) 25-100 mg per tablet Take 1 tablet by mouth three times a day. - amLODIPine (NORVASC) 10 mg tablet Take 1 tablet by mouth once daily. Problem List As Of Date 06/30/2025 Noted Resolved BENIGN HYPERTENSION [I10] 12/22/2006 11/05/2007 TRANSIENT CEREBRAL ISCHEMIA NOS [G45.9] 12/22/2006 Hyperlipemia [E78.5] 04/23/2007 CALCULUS OF KIDNEY [N20.0] 06/08/2007 Essential hypertension [I10] 11/05/2007 Gout with manifestations [M10.9] 10/19/2016 Calculus of gallbladder without cholecystitis w*11/30/2017 02/14/2023 Gallbladder polyp [K82.4] 11/30/2017 02/14/2023 Fatty liver [K76.0] 11/30/2017 Posterior vitreous detachment of left eye [H43.*01/02/2018 Vitreous floaters of both eyes [H43.393] 01/02/2018 Parkinson's disease without dyskinesia or fluct*08/21/2019 Anxiety [F41.9] 08/21/2019 Restless legs syndrome [G25.81] 08/21/2019 02/11/2022 REM sleep behavior disorder [G47.52] 08/21/2019 Hypothyroidism, acquired [E03.9] 05/06/2021 Bilateral carotid artery stenosis [I65.23] 05/31/2021 Thyroid nodule [E04.1] 07/22/2021 Abrasion of upper extremity [S40.819A] 11/21/2023 Diagnosed: 11/21/2023 Acute cholecystitis [K81.0] 11/21/2023 Diagnosed: 11/21/2023 Atrial fibrillation (HCC) [I48.91] 11/21/2023 Diagnosed: 11/21/2023 Epigastric pain [R10.13] 05/20/2022 Diagnosed: 11/21/2023 Gastroesophageal reflux disease [K21.9] 11/21/2023 Diagnosed: 11/21/2023 High serum creatinine [R79.89] 11/21/2023 Diagnosed: 11/21/2023 History of brain disorder [Z86.69] 11/21/2023 Diagnosed: 11/21/2023 Bladder stones [N21.0] 12/05/2023 Encounter Status:Closed by KRISTIN KUMAR on 06/30/25 PROGRESS Observed: 06/20/2025 9:51 AM Status: COMPLETED [id number] Author: MANUELA PHAM APRN.LOOSELEAF BINDER COVERER Service: ? Author Type: Nurse Practitioner Type: Progress Notes Filed: 06/20/2025 09:55 Note Text: This is a 75 year old male who presents today with: The patient is a 75-year-old male with Parkinson disease, presenting for evaluation of recurrent severe constipation requiring manual disimpaction and enemas. HISTORY OF PRESENT ILLNESS: Constipation: - Chronic constipation with bowel movements typically once a week, occasionally twice, rarely three times a week. - Recent episodes of severe constipation requiring manual disimpaction x2 in the past two weeks. - Recent ER visit on the for constipation; received enema. - Last bowel movement was the day after the ER visit; no bowel movements since. - Traci describes stools as hard and painful to pass, but no lingering effects once passed. - No associated abdominal pain, nausea, or emesis. - Currently taking Miralax 17g daily, mixed with water. - Drinking water, chocolate milk, Coca-Cola, and occasionally apple cider or grape juice. - Traci's diet includes shrimp, cheeseburgers, soups, chili, pasta, pizza, chocolate, broccoli, cauliflower, chicken, and frozen dinners. - Traci avoids pizza due to belief it contributes to constipation. - Difficulty chewing certain foods due to dental issues. - Previously used jdbo-hfe-[id number] stool softeners and laxatives with limited success. - Recent use of a liquid laxative (magnesium citrate) with effective results. PAST MEDICAL HISTORY: PAST MEDICAL HISTORY Diagnosis Date Atrial fibrillation (HCC) Calculus of gallbladder without cholecystitis without obstruction 11/30/2017 Gallbladder polyp 11/30/2017 Patient declines follow up. Aware of risks of not diagnosing a gall bladder malignancy Gout History of TIAs 2007 negative workup. bp etiology Hyperlipemia Hypertension Hypothyroidism (acquired) Parkinson's disease (HCC) Personal history of kidney stones 2006 Posterior vitreous detachment of left eye REM sleep behavior disorder PAST SURGICAL HISTORY Procedure Laterality Date L'SCOPE CHOLECYSTECTOMY 09/25/2022 ALLERGIES Abilify [Aripiprazole], Compazine [Prochlorperazine], Haldol [Haloperidol], Phenergan [Promethazine], Reglan [Metoclopramide], and Zyprexa [Olanzapine] MEDICATIONS Current Outpatient Medications Medication Sig levothyroxine (SYNTHROID) 100 mcg tablet Take 1 tablet by mouth once daily. Take on empty stomach. For Thyroid. lisinopril (ZESTRIL) 5 mg tablet Take 1 tablet by mouth once daily. apixaban (ELIQUIS) 5 mg tab(s) Take 1 tablet by mouth two times a day. carbidopa-levodopa (SINEMET 25-100) 25-100 mg per tablet Take 1 tablet by mouth three times a day. (Patient taking differently: Take 1 tablet by mouth two times a day. Pt takes 1 tab at 3:30a and between 9-10p) amLODIPine (NORVASC) 10 mg tablet Take 1 tablet by mouth once daily. metoprolol succinate ER (TOPROL XL) 50 mg 24 hr tablet Take 1 tablet by mouth once daily. polyethylene glycol 3350 (MIRALAX) 17 gram/dose powder Dissolve dose in 4 - 8 ounces of liquid and take 1-2 times daily until stooling, then decrease to once daily. bisacodyl (DULCOLAX, BISACODYL,) 10 mg supp 1 suppository by RECTAL route once daily as needed for constipation. No current facility-administered medications for this visit. FAMILY HISTORY Problem Relation Age of Onset Ischemic Heart Disease Mother 60 other (rheumatoid arthritis) Mother No Known Problems Father SOCIAL HISTORY[1] REVIEW OF SYSTEMS Gastrointestinal: (+) constipation, (+) painful defecation, (-) nausea, (-) vomiting, (-) abdominal pain Neurological: (+) word-finding difficulty, (+) tremor EXAM: BP 118/82 Pulse 86 Wt 87.1 kg (192 lb) SpO2 96% BMI 26.78 kg/m? PHYSICAL EXAM: General Appearance: Well appearing, alert, in no acute distress, well-hydrated, well nourished.. Skin: Skin color, texture, turgor normal, no suspicious rashes or lesions. Head: Normocephalic, no masses, lesions, tenderness or abnormalities. Eyes: Anicteric sclera. Extraocular movements are intact. . Lungs: Lungs clear to auscultation. No wheezing, rhonchi, rales.. Heart: RRR without murmur, gallop, or rubs. No ectopy. Abdomen: Abdomen soft, non-tender. Bowel sounds normal. No masses, organomegaly. Neurologic: Gait normal. + tremors. ASSESSMENT/PLAN 1. Chronic constipation (K59.09) - Recent episodes of severe constipation requiring manual disimpaction and enemas in the ED; last episode on the . - Currently using Miralax once daily as prescribed; advised to increase Miralax to twice daily to maintain soft stools. - Start Dulcolax suppositories PRN for refractory constipation. - Provided education on Miralax use, including safety of increased dosing and its mechanism as a gentle osmotic laxative. - Discussed use and storage of suppositories, including expected onset of action and technique. - Advised to maintain adequate hydration. Also discussed using mag citrate if needed (1/3 of bottle, if no results in a few hours do another 1/3 of bottle, and if still no results in a few hours, finish the bottle). Discussed treatment plan and patient voices understanding. Patient's questions answered appropriately. Medications and potential side effects were discussed and patient voices understanding. Return to the office as scheduled or as needed for worsening/no improvement. Manuela Pham APRN.[employer]LE[employer] B[employer]ER COVERER Recording using [employer] software for draft documentation of the visit was discussed with the patient/authorized territory sales representative; all questions welcomed and answered. Patient/authorized territory sales representative agreed to proceed [1] Social History Tobacco Use Smoking status: Never Smokeless tobacco: Never Vaping Use Vaping status: Never Used Substance Use Topics Alcohol use: No Drug use: No CNOV Observed: 06/18/2025 1:20 PM Status: COMPLETED Source: [facility] TRACI COOPER JR. ([id number]) 1950 M Date Time Provider Department 06/18/25 1:20 PM MANUELA PHAM During your visit today, we recorded the following information about you: Pulse Blood pressure Weight 86/minute 118/82 87.1 kg Manuela Pham APRN.[employer]LE[employer] B[employer]ER COVERER 06/18/2025 1:54 PM Signed Increase the miralax to twice daily until stooling more regularly. Can also try the suppositories. If no improvement/worsening, let us know. Manuela Pham APRN.LOOSELEAF BINDER COVERER 06/20/2025 9:55 AM Signed This is a 75 year old male who presents today with: The patient is a 75-year-old male with Parkinson disease, presenting for evaluation of recurrent severe constipation requiring manual disimpaction and enemas. HISTORY OF PRESENT ILLNESS: Constipation: - Chronic constipation with bowel movements typically once a week, occasionally twice, rarely three times a week. - Recent episodes of severe constipation requiring manual disimpaction x2 in the past two weeks. - Recent ER visit on the for constipation; received enema. - Last bowel movement was the day after the ER visit; no bowel movements since. - Traci describes stools as hard and painful to pass, but no lingering effects once passed. - No associated abdominal pain, nausea, or emesis. - Currently taking Miralax 17g daily, mixed with water. - Drinking water, chocolate milk, Coca-Cola, and occasionally apple cider or grape juice. - Traci's diet includes shrimp, cheeseburgers, soups, chili, pasta, pizza, chocolate, broccoli, cauliflower, chicken, and frozen dinners. - Traci avoids pizza due to belief it contributes to constipation. - Difficulty chewing certain foods due to dental issues. - Previously used [id number]-[id number] stool softeners and laxatives with limited success. - Recent use of a liquid laxative (magnesium citrate) with effective results. PAST MEDICAL HISTORY: PAST MEDICAL HISTORY Diagnosis Date Atrial fibrillation (HCC) Calculus of gallbladder without cholecystitis without obstruction 11/30/2017 Gallbladder polyp 11/30/2017 Patient declines follow up. Aware of risks of not diagnosing a gall bladder malignancy Gout History of TIAs 2007 negative workup. bp etiology Hyperlipemia Hypertension Hypothyroidism (acquired) Parkinson's disease (HCC) Personal history of kidney stones 2006 Posterior vitreous detachment of left eye REM sleep behavior disorder PAST SURGICAL HISTORY Procedure Laterality Date L'SCOPE CHOLECYSTECTOMY 09/25/2022 ALLERGIES Abilify [Aripiprazole], Compazine [Prochlorperazine], Haldol [Haloperidol], Phenergan [Promethazine], Reglan [Metoclopramide], and Zyprexa [Olanzapine] MEDICATIONS Current Outpatient Medications Medication Sig levothyroxine (SYNTHROID) 100 mcg tablet Take 1 tablet by mouth once daily. Take on empty stomach. For Thyroid. lisinopril (ZESTRIL) 5 mg tablet Take 1 tablet by mouth once daily. apixaban (ELIQUIS) 5 mg tab(s) Take 1 tablet by mouth two times a day. carbidopa-levodopa (SINEMET 25-100) 25-100 mg per tablet Take 1 tablet by mouth three times a day. (Patient taking differently: Take 1 tablet by mouth two times a day. Pt takes 1 tab at 3:30a and between 9-10p) amLODIPine (NORVASC) 10 mg tablet Take 1 tablet by mouth once daily. metoprolol succinate ER (TOPROL XL) 50 mg 24 hr tablet Take 1 tablet by mouth once daily. polyethylene glycol 3350 (MIRALAX) 17 gram/dose powder Dissolve dose in 4 - 8 ounces of liquid and take 1-2 times daily until stooling, then decrease to once daily. bisacodyl (DULCOLAX, BISACODYL,) 10 mg supp 1 suppository by RECTAL route once daily as needed for constipation. No current facility-administered medications for this visit. FAMILY HISTORY Problem Relation Age of Onset Ischemic Heart Disease Mother 60 other (rheumatoid arthritis) Mother No Known Problems Father SOCIAL HISTORY[1] REVIEW OF SYSTEMS Gastrointestinal: (+) constipation, (+) painful defecation, (-) nausea, (-) vomiting, (-) abdominal pain Neurological: (+) word-finding difficulty, (+) tremor EXAM: BP 118/82 Pulse 86 Wt 87.1 kg (192 lb) SpO2 96% BMI 26.78 kg/m? PHYSICAL EXAM: General Appearance: Well appearing, alert, in no acute distress, well-hydrated, well nourished.. Skin: Skin color, texture, turgor normal, no suspicious rashes or lesions. Head: Normocephalic, no masses, lesions, tenderness or abnormalities. Eyes: Anicteric sclera. Extraocular movements are intact. . Lungs: Lungs clear to auscultation. No wheezing, rhonchi, rales.. Heart: RRR without murmur, gallop, or rubs. No ectopy. Abdomen: Abdomen soft, non-tender. Bowel sounds normal. No masses, organomegaly. Neurologic: Gait normal. + tremors. ASSESSMENT/PLAN 1. Chronic constipation (K59.09) - Recent episodes of severe constipation requiring manual disimpaction and enemas in the ED; last episode on the . - Currently using Miralax once daily as prescribed; advised to increase Miralax to twice daily to maintain soft stools. - Start Dulcolax suppositories PRN for refractory constipation. - Provided education on Miralax use, including safety of increased dosing and its mechanism as a gentle osmotic laxative. - Discussed use and storage of suppositories, including expected onset of action and technique. - Advised to maintain adequate hydration. Also discussed using mag citrate if needed (1/3 of bottle, if no results in a few hours do another 1/3 of bottle, and if still no results in a few hours, finish the bottle). Discussed treatment plan and patient voices understanding. Patient's questions answered appropriately. Medications and potential side effects were discussed and patient voices understanding. Return to the office as scheduled or as needed for worsening/no improvement. Manuela Pham APRN.LOOSELEAF BINDER COVERER Recording using [employer] software for draft documentation of the visit was discussed with the patient/authorized territory sales representative; all questions welcomed and answered. Patient/authorized territory sales representative agreed to proceed [1] Social History Tobacco Use Smoking status: Never Smokeless tobacco: Never Vaping Use Vaping status: Never Used Substance Use Topics Alcohol use: No Drug use: No Referring Provider: SELF [200] Allergies As of Date: 06/18/2025 Noted Allergy Reaction ABILIFY (ARIPIPRAZOLE) 12/09/2024 15 - Contraindication-Medical Mai* Comments: People with Parkinson's disease should not take this or other antipsychotics except Nuplazid, Seroquel, and Clozaril can be prescribed. COMPAZINE (PROCHLORPERAZINE) 12/09/2024 15 - Contraindication-Medical Mai* Comments: This should not be given to people with Parkinson's disease. If not otherwise contraindicated, Zofran should be given instead. HALDOL (HALOPERIDOL) 12/09/2024 15 - Contraindication-Medical Mai* Comments: .ewhal PHENERGAN (PROMETHAZINE) 12/09/2024 15 - Contraindication-Medical Mai* Comments: This should not be given to people with Parkinson's disease. If not otherwise contraindicated, Zofran should be given instead. REGLAN (METOCLOPRAMIDE) 12/09/2024 15 - Contraindication-Medical Mai* Comments: This should not be given to people with Parkinson's disease. If not otherwise contraindicated and for nausea, Zofran should be given instead. ZYPREXA (OLANZAPINE) 06/09/2025 15 - Contraindication-Medical Mai* Date Reviewed: 06/09/2025 Reviewed by: Sade Beckman APRN.LOOSELEAF BINDER COVERER - Fully Assessed Reason for Visit: ER F/U [41] Cmt: Constipation. Still has maybe only had one small BM since been there. Denies abd pain. Taking the miralax and senna given in ER. Primary Visit Diagnosis:Chronic constipation [K59.09] Order(s):metoprolol succinate ER (TOPROL XL) 50 mg 24 hr tabletTake 1 tablet by mouth once daily.Disp: 90 tabletRfl: 3 polyethylene glycol 3350 (MIRALAX) 17 gram/dose powderDissolve dose in 4 - 8 ounces of liquid and take 1-2 times daily until stooling, then decrease to once daily.Disp: 578 gRfl: 3 bisacodyl (DULCOLAX, BISACODYL,) 10 mg supp1 suppository by RECTAL route once daily as needed for constipation.Disp: 8 eachRfl: 1 Prescriptions as of 06/20/2025 - metoprolol succinate ER (TOPROL XL) 50 mg 24 hr tablet Take 1 tablet by mouth once daily. - polyethylene glycol 3350 (MIRALAX) 17 gram/dose powder Dissolve dose in 4 - 8 ounces of liquid and take 1-2 times daily until stooling, then decrease to once daily. - bisacodyl (DULCOLAX, BISACODYL,) 10 mg supp 1 suppository by RECTAL route once daily as needed for constipation. - levothyroxine (SYNTHROID) 100 mcg tablet Take 1 tablet by mouth once daily. Take on empty stomach. For Thyroid. - lisinopril (ZESTRIL) 5 mg tablet Take 1 tablet by mouth once daily. - apixaban (ELIQUIS) 5 mg tab(s) Take 1 tablet by mouth two times a day. - carbidopa-levodopa (SINEMET 25-100) 25-100 mg per tablet Take 1 tablet by mouth three times a day. - amLODIPine (NORVASC) 10 mg tablet Take 1 tablet by mouth once daily. Problem List As Of Date 06/18/2025 Noted Resolved BENIGN HYPERTENSION [I10] 12/22/2006 11/05/2007 TRANSIENT CEREBRAL ISCHEMIA NOS [G45.9] 12/22/2006 Hyperlipemia [E78.5] 04/23/2007 CALCULUS OF KIDNEY [N20.0] 06/08/2007 Essential hypertension [I10] 11/05/2007 Gout with manifestations [M10.9] 10/19/2016 Calculus of gallbladder without cholecystitis w*11/30/2017 02/14/2023 Gallbladder polyp [K82.4] 11/30/2017 02/14/2023 Fatty liver [K76.0] 11/30/2017 Posterior vitreous detachment of left eye [H43.*01/02/2018 Vitreous floaters of both eyes [H43.393] 01/02/2018 Parkinson's disease without dyskinesia or fluct*08/21/2019 Anxiety [F41.9] 08/21/2019 Restless legs syndrome [G25.81] 08/21/2019 02/11/2022 REM sleep behavior disorder [G47.52] 08/21/2019 Hypothyroidism, acquired [E03.9] 05/06/2021 Bilateral carotid artery stenosis [I65.23] 05/31/2021 Thyroid nodule [E04.1] 07/22/2021 Abrasion of upper extremity [S40.819A] 11/21/2023 Diagnosed: 11/21/2023 Acute cholecystitis [K81.0] 11/21/2023 Diagnosed: 11/21/2023 Atrial fibrillation (HCC) [I48.91] 11/21/2023 Diagnosed: 11/21/2023 Epigastric pain [R10.13] 05/20/2022 Diagnosed: 11/21/2023 Gastroesophageal reflux disease [K21.9] 11/21/2023 Diagnosed: 11/21/2023 High serum creatinine [R79.89] 11/21/2023 Diagnosed: 11/21/2023 History of brain disorder [Z86.69] 11/21/2023 Diagnosed: 11/21/2023 Bladder stones [N21.0] 12/05/2023 Other instructions from your clinician: Increase the miralax to twice daily until stooling more regularly. Can also try the suppositories. If no improvement/worsening, let us know. Prescriptions ordered this encounter Disp Refills Start End METOPROLOL SUCCINATE ER 50 MG TABLET* 90 t* 3 06/18/2025 06/18/2026 Route: PO Sig: Take 1 tablet by mouth once daily. POLYETHYLENE GLYCOL 3350 17 GRAM/DOS* 578 g 3 06/18/2025 Sig: Dissolve dose in 4 - 8 ounces of liquid and take 1-2 times daily until stooling, then decrease to once daily. BISACODYL 10 MG RECTAL SUPPOSITORY 8 ea* 1 06/18/2025 Route: MD Si suppository by RECTAL route once daily as needed for constipation. Medications Discontinued During This Encounter Prescriptions - metoprolol succinate ER (TOPROL XL) 50 mg 24 hr tablet (Discontinued) Take 1 tablet by mouth once daily. Level of Service: OFFICE/OUTPATIENT ESTABLISHED MOD [facility] 30 MIN [39862] Additional E/M codes: VISIT CPLX INHERENT EANDM ASSOC WITH MED * Encounter Status:Closed by MANUELA PHAM on 06/20/25 DAMON Observed: 06/09/2025 10:00 AM Status: COMPLETED Source: [facility] Office Visit ([facility]) TRACI COOPER JR. ([id number]) 1950 M Date Time Provider Department 06/09/25 10:00 AM SADE BECKMAN During your visit today, we recorded the following information about you: Weight Height 88.2 kg 1.803 m Sade Beckman APRN.[employer]OO[employer]LEAF BINDER COVERER 06/09/2025 1:58 PM Signed [facility] - FOLLOW UP EVALUATION Recording using [employer] software for draft documentation of the visit was discussed with the patient/authorized territory sales representative; all questions welcomed and answered. Patient/authorized territory sales representative agreed to proceed Daniella Vang APRN.LOOSELEAF BINDER COVERER [address] [facility] [id number] Dear Daniella Vang APRN.CNP: I had the pleasure of seeing Mr. Cooper for follow-up today. As you know he is a 75 year old right-handed male with a history of Parkinson's disease since 2019. Subjective Previous Plan-12/09/2024 Visit: Parkinson's disease: Continue current medication schedule-please consistently take it on time Continue your hobbies keeping your hands and mind busy Please let me know if you change your mind about getting occupational therapy Constipation: Try using Miralax or Metamucil daily Sialorrhea (drooling): You have been provided with a hand out on drooling. Cognition: We will continue to monitor Vision: When you are able, please get your eyes checked Orthostatic hypotension (drops in blood pressure):Your blood pressure sometimes drops but the medications you take to lower blood pressure is likely why. Please change positions slowly and stay well hydrated. Interested in clinical research? Not currently Interval History: Mr. Cooper is seen alone. He reports experiencing tremors that are not constant but tend to occur when engaging in activities such as using a screwdriver or wrench. He notes that the tremors interfere with hobbies like playing guitar and drums, as well as tasks requiring fine motor skills, such as soldering. He does not endorse difficulty with dressing or preparing for the day. He reports episodes of freezing of gait, describing a sensation where his feet feel stuck to the floor. He also experiences lightheadedness upon standing sometimes. He does not report any falls. He experiences constipation. He does not endorse swallowing difficulties with food but occasionally has trouble swallowing multiple medications at once. He reports yelling out occasionally during sleep but does not endorse acting out dreams or feeling tangled in bed covers. He sometimes has RLS symptoms. He reports that his short-term memory is not as good as his long-term memory. He does not endorse hallucinations, feelings of sadness or depression, anxiety, or obsessive thinking. He does report a slight loss of motivation, which occasionally interferes with his ability to complete tasks. He is still working three days a week but plans to retire within the next couple of months. He remains physically active through work and yard activities. He has a sister and [id number] who live nearby and provide support. Other symptoms and details are noted below in the completed questionnaire. Movement Disorders Medications Schedule - as of the start of the visit: Medications 3am 12pm 5pm Sinemet 25/100 1 1 1 Parkinson's Motor Complications Medication benefit onset: unclear Medication duration: unclear Wearing off: no Painful off-state dystonia: no Dyskinesia: no Prior Anti-Parkinson Therapies Carbidopa/Levodopa Questionnaires: In addition, the following areas that may be affected by abnormal involuntary movements were evaluated: Daily activities Difficulties with eating: Difficulties in dressin (none) Difficulties with hygiene activities: Yes (mild) Difficulties with handwriting: Difficulties with doing hobbies and other activities: Yes (slight) Difficulties turning in bed: Difficulties getting out of bed, car or chair: Tremors/Gait/Balance Shaking or tremors: Yes (slight) Walking and balance problems: 0 (none) Number of falls in the Last Month: 0 Gait freezing: Autonomic/Pain Lightheadeness on standing: Yes (mild) Urinary problems: Constipation problems: Yes (mild) Pain and other sensations: 0 (none) Speech/Swallowing Speech problems: Droolin (none) Chewing and swallowing problems: Sleep/Fatigue Sleep problems: 0 (none) Daytime sleepiness: Yes (mild) Fatigue: 0 (none) Mood/Behavior Depression: Anxiety: Finally, the following table shows the patient's overall global physical and mental health using the PROMIS scale: PROMIS-10 Flowsheet Row Office Visit from 06/09/2025 in Neurology Office Visit from 12/27/2022 in Neurology Global Physical Health T Score -- 54.1 Global Mental Health T Score -- 53.3 0-10 Standard Pain Scale 5 5 *PROMIS-10 scoring scale: mean = 50, over 50 is above average, under 50 is below average In addition, the following non-motor symptoms and palliative concerns were evaluated: Sleep/Fatigue: REM sleep behavior disorder: He yells out occasionally. Restless Legs Syndrome: Yes Leg swelling: No Impaired sense of smell: No Cognition: Memory and Thinking: He said STM is not as good as LTM. Hallucinations and Psychosis: 0 - Normal. No hallucinations or psychotic behavior. Depressed Mood: 0 - Normal. No depressed mood. Anxious Mood: 0 - Normal. No anxious feelings. Apathy: 2 - Mild. Apathy interferes with isolated activities and social interactions. Impulse Control: 0 - Normal. No problems present. MoCA Cognitive assessment: 23 (12/09/2024) Palliative Concerns: Caregiver burden: Spiritual concerns: No Advanced directives on file: No Palliative services: No Therapy and Exercise: Last PT Date: Last OT Date: Last ST Date: Exercises Regularly: He is physically active at work and in the summer he is more active but he does not do structured exercise. ALLERGIES Allergen Reactions Abilify [Aripiprazo* Contraindication-Medical Surgical People with Parkinson's disease should not take this or other antipsychotics except Nuplazid, Seroquel, and Clozaril can be prescribed. Compazine [Prochlor* Contraindication-Medical Surgical This should not be given to people with Parkinson's disease. If not otherwise contraindicated, Zofran should be given instead. Haldol [Haloperidol] Contraindication-Medical Surgical .ewhal Phenergan [Prometha* Contraindication-Medical Surgical This should not be given to people with Parkinson's disease. If not otherwise contraindicated, Zofran should be given instead. Reglan [Metoclopram* Contraindication-Medical Surgical This should not be given to people with Parkinson's disease. If not otherwise contraindicated and for nausea, Zofran should be given instead. Zyprexa [Olanzapine] Contraindication-Medical Surgical Current Outpatient Medications Medication Sig levothyroxine (SYNTHROID) 100 mcg tablet Take 1 tablet by mouth once daily. Take on empty stomach. For Thyroid. lisinopril (ZESTRIL) 5 mg tablet Take 1 tablet by mouth once daily. apixaban (ELIQUIS) 5 mg tab(s) Take 1 tablet by mouth two times a day. carbidopa-levodopa (SINEMET 25-100) 25-100 mg per tablet Take 1 tablet by mouth three times a day. (Patient taking differently: Take 1 tablet by mouth three times a day. Pt takes 1 tab at 3:30a and between 9-10p) amLODIPine (NORVASC) 10 mg tablet Take 1 tablet by mouth once daily. metoprolol succinate ER (TOPROL XL) 50 mg 24 hr tablet Take 1 tablet by mouth once daily. No current facility-administered medications for this visit. Objective Vital Signs: Ht 180.3 cm (5' 11) Wt 88.2 kg (194 lb 7.1 oz) SpO2 98% BMI 27.12 kg/m? Orthostatic Vitals: Standing: BP 111/69 Pulse 70 No LMP for male patient. Body mass index is 27.12 kg/m?. Movement Disorders Scales Performed: MDS-UPDRS Motor subscale condition of exam Medication Off/On/Naiive Time of UPDRS 1023 Time of Last Medication 0400 Last Medication Taken Sinemet 25/100 1 tablets DBS Right N/A DBS Left N/A MDS-UPDRS Motor subscale scores Speech 1-Slight. Loss of modulation, diction or volume, but still all words easy to understand. Facial Expression 2-Mild. In addition to decreased eye-blink frequency, Masked facies present in the lower face as well, namely fewer movements around the mouth, such as less spontaneous smiling, but lips not parted. Finger Taps Right 1-Slight. a) the regular rhythm is broken with one or two interruptions or hesitations of the tapping movement, b) slight slowing, c) the amplitude decrements near the end of the 10 taps. Finger Taps Left 1-Slight. a) the regular rhythm is broken with one or two interruptions or hesitations of the tapping movement, b) slight slowing, c) the amplitude decrements near the end of the 10 taps. Hand Movements Right 1-Slight. a) the regular rhythm is broken with one or two interruptions or hesitations of the movement, b) slight slowing, c) the amplitude decrements near the end of the task. Hand Movements Left 2-Mild. a) 3 to 5 interruptions during the movements, b) mild slowing, c) the amplitude decrements midway in the task. Arm Movements Right 3-Moderate. a) more than 5 interruptions during the movement or at least one longer arrest (freeze) in ongoing movement, b) moderate slowing, c) the amplitude decrements starting after the 1st supination-pronation sequence. Arm Movements Left 3-Moderate. a) more [...] end of the task. Leg Agility Left 2-Mild. a) 3 to 5 interruptions during the movements, b) mild slowness, c) the amplitude decrements midway in the task. Arise From Chair 0-Normal. No problems. Able to arise quickly without hesitation. Gait 1-Slight. Independent walking with minor gait impairment. Gait Freezing 0-Normal. No freezing. Posture Stability 1-Slight. 3-5 steps, but subject recovers unaided. (deferred to past) Posture 3-Moderate. Stooped posture, scoliosis or leaning to one side that cannot be corrected volitionally to a normal posture by the patient. Body Bradykinesia 1-Slight. Slight global slowness and poverty of spontaneous movements. Postural Tremor Hand Right 0-Normal. No tremor. Postural Tremor Hand Left 1-Slight. Tremor is present but less than 1cm in amplitude. Kinetic Tremor Right 0-Normal. No tremor. Kinetic [...] 0-Normal. No tremor. Rest Tremor Amplitude Lip/Jaw 1-Slight. < 1 cm in maximal amplitude. Rest Tremor Constancy 4-Severe. Tremor at rest is present > 75% of the entire examination period. Pertinent Studies 05/01/18 Brain MRI Impression: No acute intracranial findings. No intracranial mass or pathologic enhancement. Mild parenchymal volume loss and mild sequela of chronic microvascular ischemia. Assessment and Plan: Assessment Mr. Cooper is a right-handed 75 year old man with Parkinson's disease since 2019. He continues to have significant tremor that does not respond to the Sinemet he takes, but he typically only takes a total of 2 tablets daily in two divided doses as he usually does not take a third dose. He still does not want to make any adjustments given his work as he is afraid of side effects, but he plans on retiring soon and I am hoping he may be interested then. The following are the current problems noted and addressed during this visit: Parkinson's disease without dyskinesia or fluctuating manifestations (hcc) (primary encounter diagnosis) Orthostatic hypotension Constipation, unspecified constipation type Plan 06/09/2025 Visit: Parkinson's disease: Continue current medication schedule-please consistently take it on time Continue your hobbies keeping your hands and mind busy Please let me know if you change your mind about getting occupational therapy Constipation: Try using Miralax or Metamucil daily Vision: When you are able, please get your eyes checked Orthostatic hypotension (drops in blood pressure):Your blood pressure sometimes drops but the medications you take to lower blood pressure is likely why. Please change positions slowly and stay well hydrated. Interested in clinical research? Not discussed Updated Movement Disorders Medication Schedule: Medications 3am 12pm 5pm Sinemet 1 1 1 Return at or around: 12/10/25 Level of service : 65318 ( 30-39 min). Time spent 33 min on the day of service, which included preparing to see the patient, [id number] patient care, completing clinical documentation, obtaining and/or reviewing separately obtained history, performing a medically appropriate examination, and counseling and educating the patient/family/caregiver. Sade Beckman APRN.Sade Michelle APRN.ALIVIA 06/09/2025 10:30 AM Addendum It was a pleasure to see you today. We addressed the following diagnoses: Parkinson's disease without dyskinesia or fluctuating manifestations (hcc) (primary encounter diagnosis) Orthostatic hypotension Constipation, unspecified constipation type My recommendations are as follows: 06/09/2025 Visit: Parkinson's disease: Continue current medication schedule-please consistently take it on time Continue your hobbies keeping your hands and mind busy Please let me know if you change your mind about getting occupational therapy Please stay physically active Constipation: Try using Miralax or Metamucil daily Cognition: We will continue to monitor Vision: When you are able, please get your eyes checked Orthostatic hypotension (drops in blood pressure):Your blood pressure sometimes drops but the medications you take to lower blood pressure is likely why. Please change positions slowly and stay well hydrated. Interested in clinical research? Not discussed Movement Disorders Medication Schedule: Medications 3am 12pm 5pm Sinemet 1 1 1 Return at or around: 12/10/25 Your current CNR Movement Disorders Team includes: Primary Movement Disorders Neurologist: Andrez Beckman MD Primary Movement Disorders Advanced Practice Provider: Sade Beckman CNP If there are any concerns before your next visit, please call or you can send a message through [employer]. You can also now schedule and select appointments through [employer]. Sade Beckman APRN.LOOSELEAF BINDER COVERER Referring Provider: SADE BECKMAN [[id number]] Allergies As of Date: 06/09/2025 Noted Allergy Reaction ABILIFY (ARIPIPRAZOLE) 12/09/2024 15 - Contraindication-Medical Mai* Comments: People with Parkinson's disease should not take this or other antipsychotics except Nuplazid, Seroquel, and Clozaril can be prescribed. COMPAZINE (PROCHLORPERAZINE) 12/09/2024 15 - Contraindication-Medical Mai* Comments: This should not be given to people with Parkinson's disease. If not otherwise contraindicated, Zofran should be given instead. HALDOL (HALOPERIDOL) 12/09/2024 15 - Contraindication-Medical Mai* Comments: .ewhal PHENERGAN (PROMETHAZINE) 12/09/2024 15 - Contraindication-Medical Mai* Comments: This should not be given to people with Parkinson's disease. If not otherwise contraindicated, Zofran should be given instead. REGLAN (METOCLOPRAMIDE) 12/09/2024 15 - Contraindication-Medical Mai* Comments: This should not be given to people with Parkinson's disease. If not otherwise contraindicated and for nausea, Zofran should be given instead. ZYPREXA (OLANZAPINE) 06/09/2025 15 - Contraindication-Medical Mai* Date Reviewed: 06/09/2025 Reviewed by: Sade Beckman APRN.LOOSELEAF BINDER COVERER - Fully Assessed Reason for Visit: Parkinson's Disease [582] Primary Visit Diagnosis:Parkinson's disease without dyskinesia or fluctuating manifestations (HCC) [G20.A1] Other Visit Diagnoses:Orthostatic hypotension [I95.1] Constipation, unspecified constipation type [K59.00] Order(s):PROVIDER ORDERED FOLLOW UP [[id number]] Order #: [id number]: 1 PROVIDER ORDERED FOLLOW UP [[id number]] Order #: [id number]: 1 FUTURE Prescriptions as of 06/09/2025 - levothyroxine (SYNTHROID) 100 mcg tablet Take 1 tablet by mouth once daily. Take on empty stomach. For Thyroid. - lisinopril (ZESTRIL) 5 mg tablet Take 1 tablet by mouth once daily. - apixaban (ELIQUIS) 5 mg tab(s) Take 1 tablet by mouth two times a day. - carbidopa-levodopa (SINEMET 25-100) 25-100 mg per tablet Take 1 tablet by mouth three times a day. - amLODIPine (NORVASC) 10 mg tablet Take 1 tablet by mouth once daily. - metoprolol succinate ER (TOPROL XL) 50 mg 24 hr tablet Take 1 tablet by mouth once daily. Problem List As Of Date 06/09/2025 Noted Resolved BENIGN HYPERTENSION [I10] 12/22/2006 11/05/2007 TRANSIENT CEREBRAL ISCHEMIA NOS [G45.9] 12/22/2006 Hyperlipemia [E78.5] 04/23/2007 CALCULUS OF KIDNEY [N20.0] 06/08/2007 Essential hypertension [I10] 11/05/2007 Gout with manifestations [M10.9] 10/19/2016 Calculus of gallbladder without cholecystitis w*11/30/2017 02/14/2023 Gallbladder polyp [K82.4] 11/30/2017 02/14/2023 Fatty liver [K76.0] 11/30/2017 Posterior vitreous detachment of left eye [H43.*01/02/2018 Vitreous floaters of both eyes [H43.393] 01/02/2018 Parkinson's disease without dyskinesia or fluct*08/21/2019 Anxiety [F41.9] 08/21/2019 Restless legs syndrome [G25.81] 08/21/2019 02/11/2022 REM sleep behavior disorder [G47.52] 08/21/2019 Hypothyroidism, acquired [E03.9] 05/06/2021 Bilateral carotid artery stenosis [I65.23] 05/31/2021 Thyroid nodule [E04.1] 07/22/2021 Abrasion of upper extremity [S40.819A] 11/21/2023 Diagnosed: 11/21/2023 Acute cholecystitis [K81.0] 11/21/2023 Diagnosed: 11/21/2023 Atrial fibrillation (HCC) [I48.91] 11/21/2023 Diagnosed: 11/21/2023 Epigastric pain [R10.13] 05/20/2022 Diagnosed: 11/21/2023 Gastroesophageal reflux disease [K21.9] 11/21/2023 Diagnosed: 11/21/2023 High serum creatinine [R79.89] 11/21/2023 Diagnosed: 11/21/2023 History of brain disorder [Z86.69] 11/21/2023 Diagnosed: 11/21/2023 Bladder stones [N21.0] 12/05/2023 Other instructions from your clinician: It was a pleasure to see you today. We addressed the following diagnoses: Parkinson's disease without dyskinesia or fluctuating manifestations (hcc) (primary encounter diagnosis) Orthostatic hypotension Constipation, unspecified constipation type My recommendations are as follows: 06/09/2025 Visit: Parkinson's disease: Continue current medication schedule-please consistently take it on time Continue your hobbies keeping your hands and mind busy Please let me know if you change your mind about getting occupational therapy Please stay physically active Constipation: Try using Miralax or Metamucil daily Cognition: We will continue to monitor Vision: When you are able, please get your eyes checked Orthostatic hypotension (drops in blood pressure):Your blood pressure sometimes drops but the medications you take to lower blood pressure is likely why. Please change positions slowly and stay well hydrated. Interested in clinical research? Not discussed Movement Disorders Medication Schedule: Medications 3am 12pm 5pm Sinemet 25/100 1 1 1 Return at or around: 12/10/25 Your current CNR Movement Disorders Team includes: Primary Movement Disorders Neurologist: Andrez Beckman MD Primary Movement Disorders Advanced Practice Provider: Sade Beckman CNP If there are any concerns before your next visit, please call or you can send a message through [employer]. You can also now schedule and select appointments through [employer]. Sade Beckman APRN.ALIVIA Medications Discontinued During This Encounter Prescriptions - atorvastatin (LIPITOR) 80 mg tablet (Discontinued) Take 1 tablet by mouth once daily. Encounter Status:Closed by SADE BECKMAN on 06/09/25 PROGRESS Observed: 06/09/2025 10:00 AM Status: COMPLETED Source: [facility] HNO ID: [id number] Author: SADE BECKMAN APRN.ALIVIA Service: ? Author Type: Nurse Practitioner Type: Progress Notes Filed: 06/09/2025 13:58 Note Text: [facility] - FOLLOW UP EVALUATION Recording using [employer] software for draft documentation of the visit was discussed with the patient/authorized territory sales representative; all questions welcomed and answered. Patient/authorized territory sales representative agreed to proceed Daniella Vang APRN.LOOSELEAF BINDER COVERER [id number] [facility] [id number] Dear Daniella Vang APRN.CNP: I had the pleasure of seeing Mr. Cooper for follow-up today. As you know he is a 75 year old right-handed male with a history of Parkinson's disease since 2019. Subjective Previous Plan-12/09/2024 Visit: Parkinson's disease: Continue current medication schedule-please consistently take it on time Continue your hobbies keeping your hands and mind busy Please let me know if you change your mind about getting occupational therapy Constipation: Try using Miralax or Metamucil daily Sialorrhea (drooling): You have been provided with a hand out on drooling. Cognition: We will continue to monitor Vision: When you are able, please get your eyes checked Orthostatic hypotension (drops in blood pressure):Your blood pressure sometimes drops but the medications you take to lower blood pressure is likely why. Please change positions slowly and stay well hydrated. Interested in clinical research? Not currently Interval History: Mr. Cooper is seen alone. He reports experiencing tremors that are not constant but tend to occur when engaging in activities such as using a screwdriver or wrench. He notes that the tremors interfere with hobbies like playing guitar and drums, as well as tasks requiring fine motor skills, such as soldering. He does not endorse difficulty with dressing or preparing for the day. He reports episodes of freezing of gait, describing a sensation where his feet feel stuck to the floor. He also experiences lightheadedness upon standing sometimes. He does not report any falls. He experiences constipation. He does not endorse swallowing difficulties with food but occasionally has trouble swallowing multiple medications at once. He reports yelling out occasionally during sleep but does not endorse acting out dreams or feeling tangled in bed covers. He sometimes has RLS symptoms. He reports that his short-term memory is not as good as his long-term memory. He does not endorse hallucinations, feelings of sadness or depression, anxiety, or obsessive thinking. He does report a slight loss of motivation, which occasionally interferes with his ability to complete tasks. He is still working three days a week but plans to retire within the next couple of months. He remains physically active through work and yard activities. He has a sister and [id number] who live nearby and provide support. Other symptoms and details are noted below in the completed questionnaire. Movement Disorders Medications Schedule - as of the start of the visit: Medications 3am 12pm 5pm Sinemet 25/100 1 1 1 Parkinson's Motor Complications Medication benefit onset: unclear Medication duration: unclear Wearing off: no Painful off-state dystonia: no Dyskinesia: no Prior Anti-Parkinson Therapies Carbidopa/Levodopa Questionnaires: In addition, the following areas that may be affected by abnormal involuntary movements were evaluated: Daily activities Difficulties with eating: Difficulties in dressin (none) Difficulties with hygiene activities: Yes (mild) Difficulties with handwriting: Difficulties with doing hobbies and other activities: Yes (slight) Difficulties turning in bed: Difficulties getting out of bed, car or chair: Tremors/Gait/Balance Shaking or tremors: Yes (slight) Walking and balance problems: 0 (none) Number of falls in the Last Month: 0 Gait freezing: Autonomic/Pain Lightheadeness on standing: Yes (mild) Urinary problems: Constipation problems: Yes (mild) Pain and other sensations: 0 (none) Speech/Swallowing Speech problems: Droolin (none) Chewing and swallowing problems: Sleep/Fatigue Sleep problems: 0 (none) Daytime sleepiness: Yes (mild) Fatigue: 0 (none) Mood/Behavior Depression: Anxiety: Finally, the following table shows the patient's overall global physical and mental health using the PROMIS scale: PROMIS-10 Flowsheet Row Office Visit from 06/09/2025 in Neurology Office Visit from 12/27/2022 in Neurology Global Physical Health T Score -- 54.1 Global Mental Health T Score -- 53.3 0-10 Standard Pain Scale 5 5 *PROMIS-10 scoring scale: mean = 50, over 50 is above average, under 50 is below average In addition, the following non-motor symptoms and palliative concerns were evaluated: Sleep/Fatigue: REM sleep behavior disorder: He yells out occasionally. Restless Legs Syndrome: Yes Leg swelling: No Impaired sense of smell: No Cognition: Memory and Thinking: He said STM is not as good as LTM. Hallucinations and Psychosis: 0 - Normal. No hallucinations or psychotic behavior. Depressed Mood: 0 - Normal. No depressed mood. Anxious Mood: 0 - Normal. No anxious feelings. Apathy: 2 - Mild. Apathy interferes with isolated activities and social interactions. Impulse Control: 0 - Normal. No problems present. MoCA Cognitive assessment: 23 (12/09/2024) Palliative Concerns: Caregiver burden: Spiritual concerns: No Advanced directives on file: No Palliative services: No Therapy and Exercise: Last PT Date: Last OT Date: Last ST Date: Exercises Regularly: He is physically active at work and in the summer he is more active but he does not do structured exercise. ALLERGIES Allergen Reactions Abilify [Aripiprazo* Contraindication-Medical Surgical People with Parkinson's disease should not take this or other antipsychotics except Nuplazid, Seroquel, and Clozaril can be prescribed. Compazine [Prochlor* Contraindication-Medical Surgical This should not be given to people with Parkinson's disease. If not otherwise contraindicated, Zofran should be given instead. Haldol [Haloperidol] Contraindication-Medical Surgical .ewhal Phenergan [Prometha* Contraindication-Medical Surgical This should not be given to people with Parkinson's disease. If not otherwise contraindicated, Zofran should be given instead. Reglan [Metoclopram* Contraindication-Medical Surgical This should not be given to people with Parkinson's disease. If not otherwise contraindicated and for nausea, Zofran should be given instead. Zyprexa [Olanzapine] Contraindication-Medical Surgical Current Outpatient Medications Medication Sig levothyroxine (SYNTHROID) 100 mcg tablet Take 1 tablet by mouth once daily. Take on empty stomach. For Thyroid. lisinopril (ZESTRIL) 5 mg tablet Take 1 tablet by mouth once daily. apixaban (ELIQUIS) 5 mg tab(s) Take 1 tablet by mouth two times a day. carbidopa-levodopa (SINEMET 25-100) 25-100 mg per tablet Take 1 tablet by mouth three times a day. (Patient taking differently: Take 1 tablet by mouth three times a day. Pt takes 1 tab at 3:30a and between 9-10p) amLODIPine (NORVASC) 10 mg tablet Take 1 tablet by mouth once daily. metoprolol succinate ER (TOPROL XL) 50 mg 24 hr tablet Take 1 tablet by mouth once daily. No current facility-administered medications for this visit. Objective Vital Signs: Ht 180.3 cm (5' 11) Wt 88.2 kg (194 lb 7.1 oz) SpO2 98% BMI 27.12 kg/m? Orthostatic Vitals: Standing: BP 111/69 Pulse 70 No LMP for male patient. Body mass index is 27.12 kg/m?. Movement Disorders Scales Performed: MDS-UPDRS Motor subscale condition of exam Medication Off/On/Naiive Time of UPDRS 1023 Time of Last Medication 0400 Last Medication Taken Sinemet 25/100 1 tablets DBS Right N/A DBS Left N/A MDS-UPDRS Motor subscale scores Speech 1-Slight. Loss of modulation, diction or volume, but still all words easy to understand. Facial Expression 2-Mild. In addition to decreased eye-blink frequency, Masked facies present in the lower face as well, namely fewer movements around the mouth, such as less spontaneous smiling, but lips not parted. Finger Taps Right 1-Slight. a) the regular rhythm is broken with one or two interruptions or hesitations of the tapping movement, b) slight slowing, c) the amplitude decrements near the end of the 10 taps. Finger Taps Left 1-Slight. a) the regular rhythm is broken with one or two interruptions or hesitations of the tapping movement, b) slight slowing, c) the amplitude decrements near the end of the 10 taps. Hand Movements Right 1-Slight. a) the regular rhythm is broken with one or two interruptions or hesitations of the movement, b) slight slowing, c) the amplitude decrements near the end of the task. Hand Movements Left 2-Mild. a) 3 to 5 interruptions during the movements, b) mild slowing, c) the amplitude decrements midway in the task. Arm Movements Right 3-Moderate. a) more than 5 interruptions during the movement or at least one longer arrest (freeze) in ongoing movement, b) moderate slowing, c) the amplitude decrements starting after the 1st supination-pronation sequence. Arm Movements Left 3-Moderate. a) more [...] end of the task. Leg Agility Left 2-Mild. a) 3 to 5 interruptions during the movements, b) mild slowness, c) the amplitude decrements midway in the task. Arise From Chair 0-Normal. No problems. Able to arise quickly without hesitation. Gait 1-Slight. Independent walking with minor gait impairment. Gait Freezing 0-Normal. No freezing. Posture Stability 1-Slight. 3-5 steps, but subject recovers unaided. (deferred to past) Posture 3-Moderate. Stooped posture, scoliosis or leaning to one side that cannot be corrected volitionally to a normal posture by the patient. Body Bradykinesia 1-Slight. Slight global slowness and poverty of spontaneous movements. Postural Tremor Hand Right 0-Normal. No tremor. Postural Tremor Hand Left 1-Slight. Tremor is present but less than 1cm in amplitude. Kinetic Tremor Right 0-Normal. No tremor. Kinetic [...] 0-Normal. No tremor. Rest Tremor Amplitude Lip/Jaw 1-Slight. < 1 cm in maximal amplitude. Rest Tremor Constancy 4-Severe. Tremor at rest is present > 75% of the entire examination period. Pertinent Studies 05/01/18 Brain MRI Impression: No acute intracranial findings. No intracranial mass or pathologic enhancement. Mild parenchymal volume loss and mild sequela of chronic microvascular ischemia. Assessment and Plan: Assessment Mr. Cooper is a right-handed 75 year old man with Parkinson's disease since 2019. He continues to have significant tremor that does not respond to the Sinemet he takes, but he typically only takes a total of 2 tablets daily in two divided doses as he usually does not take a third dose. He still does not want to make any adjustments given his work as he is afraid of side effects, but he plans on retiring soon and I am hoping he may be interested then. The following are the current problems noted and addressed during this visit: Parkinson's disease without dyskinesia or fluctuating manifestations (hcc) (primary encounter diagnosis) Orthostatic hypotension Constipation, unspecified constipation type Plan 06/09/2025 Visit: Parkinson's disease: Continue current medication schedule-please consistently take it on time Continue your hobbies keeping your hands and mind busy Please let me know if you change your mind about getting occupational therapy Constipation: Try using Miralax or Metamucil daily Vision: When you are able, please get your eyes checked Orthostatic hypotension (drops in blood pressure):Your blood pressure sometimes drops but the medications you take to lower blood pressure is likely why. Please change positions slowly and stay well hydrated. Interested in clinical research? Not discussed Updated Movement Disorders Medication Schedule: Medications 3am 12pm 5pm Sinemet 25/100 1 1 1 Return at or around: 12/10/25 Level of service : 66600 ( 30-39 min). Time spent 33 min on the day of service, which included preparing to see the patient, [id number] patient care, completing clinical documentation, obtaining and/or reviewing separately obtained history, performing a medically appropriate examination, and counseling and educating the patient/family/caregiver. Sade Beckman APRN.[employer] CNPTOUTREACH Observed: 05/27/2025 12:00 AM Status: COMPLETED Source: [facility] Patient Outreach (INTMMN) TRACI COOPER JR. ([id number]) 1950 M Date Time Provider Department 05/27/25 DANIELLA VANG During your visit today, we recorded the following information about you: Allergies As of Date: 05/27/2025 Noted Allergy Reaction ABILIFY (ARIPIPRAZOLE) 12/09/2024 15 - Contraindication-Medical Mai* Comments: People with Parkinson's disease should not take this or other antipsychotics except Nuplazid, Seroquel, and Clozaril can be prescribed. COMPAZINE (PROCHLORPERAZINE) 12/09/2024 15 - Contraindication-Medical Mai* Comments: This should not be given to people with Parkinson's disease. If not otherwise contraindicated, Zofran should be given instead. HALDOL (HALOPERIDOL) 12/09/2024 15 - Contraindication-Medical Mai* Comments: .ewhal PHENERGAN (PROMETHAZINE) 12/09/2024 15 - Contraindication-Medical Mai* Comments: This should not be given to people with Parkinson's disease. If not otherwise contraindicated, Zofran should be given instead. REGLAN (METOCLOPRAMIDE) 12/09/2024 15 - Contraindication-Medical Mai* Comments: This should not be given to people with Parkinson's disease. If not otherwise contraindicated and for nausea, Zofran should be given instead. Date Reviewed: 02/26/2025 Reviewed by: Milagros Murrell MA - Fully Assessed Visit Diagnoses:Essential hypertension [I10] Hyperlipemia [E78.5] Medication management [Z79.899] Prescriptions as of 05/30/2025 - levothyroxine (SYNTHROID) 100 mcg tablet Take 1 tablet by mouth once daily. Take on empty stomach. For Thyroid. - lisinopril (ZESTRIL) 5 mg tablet Take 1 tablet by mouth once daily. - apixaban (ELIQUIS) 5 mg tab(s) Take 1 tablet by mouth two times a day. - carbidopa-levodopa (SINEMET 25-100) 25-100 mg per tablet Take 1 tablet by mouth three times a day. - amLODIPine (NORVASC) 10 mg tablet Take 1 tablet by mouth once daily. - atorvastatin (LIPITOR) 80 mg tablet Take 1 tablet by mouth once daily. - metoprolol succinate ER (TOPROL XL) 50 mg 24 hr tablet Take 1 tablet by mouth once daily. Problem List As Of Date 05/27/2025 Noted Resolved BENIGN HYPERTENSION [I10] 12/22/2006 11/05/2007 TRANSIENT CEREBRAL ISCHEMIA NOS [G45.9] 12/22/2006 Hyperlipemia [E78.5] 04/23/2007 CALCULUS OF KIDNEY [N20.0] 06/08/2007 Essential hypertension [I10] 11/05/2007 Gout with manifestations [M10.9] 10/19/2016 Calculus of gallbladder without cholecystitis w*11/30/2017 02/14/2023 Gallbladder polyp [K82.4] 11/30/2017 02/14/2023 Fatty liver [K76.0] 11/30/2017 Posterior vitreous detachment of left eye [H43.*01/02/2018 Vitreous floaters of both eyes [H43.393] 01/02/2018 Parkinson's disease without dyskinesia or fluct*08/21/2019 Anxiety [F41.9] 08/21/2019 Restless legs syndrome [G25.81] 08/21/2019 02/11/2022 REM sleep behavior disorder [G47.52] 08/21/2019 Hypothyroidism, acquired [E03.9] 05/06/2021 Bilateral carotid artery stenosis [I65.23] 05/31/2021 Thyroid nodule [E04.1] 07/22/2021 Abrasion of upper extremity [S40.819A] 11/21/2023 Diagnosed: 11/21/2023 Acute cholecystitis [K81.0] 11/21/2023 Diagnosed: 11/21/2023 Atrial fibrillation (HCC) [I48.91] 11/21/2023 Diagnosed: 11/21/2023 Epigastric pain [R10.13] 05/20/2022 Diagnosed: 11/21/2023 Gastroesophageal reflux disease [K21.9] 11/21/2023 Diagnosed: 11/21/2023 High serum creatinine [R79.89] 11/21/2023 Diagnosed: 11/21/2023 History of brain disorder [Z86.69] 11/21/2023 Diagnosed: 11/21/2023 Bladder stones [N21.0] 12/05/2023 Encounter Status:Closed by TASNEEM, GATOUSER on 05/30/25 CNOV Observed: 02/26/2025 10:40 AM Status: COMPLETED Source: [facility] Office Visit (CARDMM) UNAJESSETINATRACI JR. ([id number]) 1950 M Date Time Provider Department 02/26/25 10:40 AM YANIRA GAMBLE During your visit today, we recorded the following information about you: Pulse Blood pressure Weight Height 70/minute 116/60 84 kg 1.803 m Yanira Gamble MD 02/26/2025 10:52 AM Signed [facility] SECTION OF [facility]IONAL CARDIOLOGY OUTPATIENT VISIT DATE 02/26/2025 OUTPATIENT VISIT TYPE ESTABLISHED PRIMARY CARE PHYSICIAN: Celso Julien [address] [place] [address] HISTORY OF PRESENT ILLNESS: Mr. Cooper is a 73 year old male, history of stroke, atrial fibrillation, hypertension, Parkinson's, TIAs, presents for follow-up visit. Previously seen on 08/29/2024. He denies chest pain, SOB, palpitations, orthopnea, PND, leg swelling, lightheadedness, syncope. He reports compliance and good tolerance on eliquis. 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 Prior Hx: He presented to [facility] on 10/19/2023 with blurred vision that started approximately 5:30 in the morning while watching television. Was not able to form words properly. He called 911 as he was concerned for TIA. CT brain without contrast showed no acute intracranial process, chronic involutional and white matter changes. CTA head and neck with contrast 10/19/23 showed no evidence of significant stenosis or occlusion of carotid or vertebral arteries in the neck, no evidence of large vessel occlusion and lummi of Peng. TTE 10/19/2023: EF 60%, grade 1 DD, negative bubble study. Mild MR, AR,TR MRI brain showed acute lacunar infarct right cerebellum with mild chronic involutional and white matter changes. He was noted to have atrial fibrillation. A Zio patch was done on 10/24/23 to 11/07/2023: 40-2 22. 3 VT runs: fastest 6 beats long with max rate 222: Longest 6 beats run rate 132. PSVT runs-5 beats at 194 bpm: Longest 20.1 seconds long HR 112. Less than 1% SVE as well as SVE triplets. Some 1% VE, VE couplets, ventricular bigeminy and trigeminy were present. PAST MEDICAL HISTORY Diagnosis Date Atrial fibrillation (HCC) Calculus of gallbladder without cholecystitis without obstruction 11/30/2017 Gallbladder polyp 11/30/2017 Patient declines follow up. Aware of risks of not diagnosing a gall bladder malignancy Gout History of TIAs 2007 negative workup. bp etiology Hyperlipemia Hypertension Hypothyroidism (acquired) Parkinson's disease (HCC) Personal history of kidney stones 2005 Posterior vitreous detachment of left eye REM sleep behavior disorder PAST SURGICAL HISTORY Procedure Laterality Date L'SCOPE CHOLECYSTECTOMY 09/25/2022 Social History Tobacco Use Smoking status: Never Smokeless tobacco: Never Vaping Use Vaping status: Never Used Substance Use Topics Alcohol use: No Drug use: No FAMILY HISTORY Problem Relation Age of Onset Ischemic Heart Disease Mother 60 other (rheumatoid arthritis) Mother No Known Problems Father ALLERGIES Allergen Reactions Abilify [Aripiprazo* Contraindication-Medical Surgical People with Parkinson's disease should not take this or other antipsychotics except Nuplazid, Seroquel, and Clozaril can be prescribed. Compazine [Prochlor* Contraindication-Medical Surgical This should not be given to people with Parkinson's disease. If not otherwise contraindicated, Zofran should be given instead. Haldol [Haloperidol] Contraindication-Medical Surgical .ewhal Phenergan [Prometha* Contraindication-Medical Surgical This should not be given to people with Parkinson's disease. If not otherwise contraindicated, Zofran should be given instead. Reglan [Metoclopram* Contraindication-Medical Surgical This should not be given to people with Parkinson's disease. If not otherwise contraindicated and for nausea, Zofran should be given instead. CURRENT MEDICATIONS: predniSONE (DELTASONE) 10 mg tablet Take 4 tabs daily for 3 days, then 2 tabs daily for 3 days, then 1 tab daily for 3 days with food. levothyroxine (SYNTHROID) 100 mcg tablet Take 1 tablet by mouth once daily. Take on empty stomach. For Thyroid. lisinopril (ZESTRIL) 5 mg tablet Take 1 tablet by mouth once daily. apixaban (ELIQUIS) 5 mg tab(s) Take 1 tablet by mouth two times a day. carbidopa-levodopa (SINEMET 25-100) 25-100 mg per tablet Take 1 tablet by mouth three times a day. amLODIPine (NORVASC) 10 mg tablet Take 1 tablet by mouth once daily. atorvastatin (LIPITOR) 80 mg tablet Take 1 tablet by mouth once daily. metoprolol succinate ER (TOPROL XL) 50 mg 24 hr tablet Take 1 tablet by mouth once daily. PHYSICAL EXAMINATION: BP 116/60 Pulse 70 Ht 180.3 cm (5' 11) Wt 84 kg (185 lb 3 oz) SpO2 98% BMI 25.83 kg/m? General: Appears comfortable in no apparent cardiopulmonary distress Neck: No JVD, no bruits CVS: Regular rhythm,S1, S2, No m/r/g Chest: CTAB Abd: Soft, nontender, no masses, BS present Ext: No pedal edema, pedal pulses 2+ bilaterally Neuro: No focal neurological deficits ASSESSMENT/PLAN: 1. New onset atrial fibrillation (HCC) - ICD9: 427.31, ICD10: I48.91 [id number] 5. He reports heart rates in the 50s at home. Regular rhythm on exam. - On Eliquis 5 mg p.o. bid. Denies any bleeding or falls or trauma. - On metoprolol 50 mg po daily. Tolerating well. - He would like to f/u in 6 months, sooner if medically necessary. 2. Recent cerebrovascular accident In the setting of paroxysmal afib. - As above - LDL 106 on 06/10/24. Goal LDL <55. On Lipitor 80. - Discussed addition of cholesterol lowering medications such as ezetimibe 10 mg po daily again. He is declining. 3. Nonsustained VT Recommended stress testing again however patient is declining. He states that he will keep us informed when he is ready to have this testing done. - He is declining repeat monitor tech. - On metoprolol 4. Carotid artery stenosis Mild noted on carotid artery duplex 20-39% bilateral ICA per carotid artery duplex dated 05/31/21; and Neck CTA <30% LICA ? 30% STEFANY - He is declining repeat carotid artery duplex - Continue medical therapy. Declining addition of cholesterol lowering medications such as ezetimibe 10 mg po daily. - We discussed low cholesterol diet- avoid red meats and processed foods, focus on lean portions of white meat- chicken and turkey breast, fish, healthy nuts, fruits, vegetables. - He was counseled on gradually achieving at least 30 minutes of moderate intensity aerobic exercise 5 times per week-biking, brisk walking, hiking, swimming, rowing. Yanira Gamble MD, [facility] Allergies As of Date: 02/26/2025 Noted Allergy Reaction ABILIFY (ARIPIPRAZOLE) 12/09/2024 15 - Contraindication-Medical Mai* Comments: People with Parkinson's disease should not take this or other antipsychotics except Nuplazid, Seroquel, and Clozaril can be prescribed. COMPAZINE (PROCHLORPERAZINE) 12/09/2024 15 - Contraindication-Medical Mai* Comments: This should not be given to people with Parkinson's disease. If not otherwise contraindicated, Zofran should be given instead. HALDOL (HALOPERIDOL) 12/09/2024 15 - Contraindication-Medical Mai* Comments: .ewhal PHENERGAN (PROMETHAZINE) 12/09/2024 15 - Contraindication-Medical Mai* Comments: This should not be given to people with Parkinson's disease. If not otherwise contraindicated, Zofran should be given instead. REGLAN (METOCLOPRAMIDE) 12/09/2024 15 - Contraindication-Medical Mai* Comments: This should not be given to people with Parkinson's disease. If not otherwise contraindicated and for nausea, Zofran should be given instead. Date Reviewed: 02/26/2025 Reviewed by: Milagros Murrell MA - Fully Assessed Reason for Visit: Follow Up [171] Cmt: No current cardiac concerns Primary Visit Diagnosis:Paroxysmal A-fib (HCC) [I48.0] Prescriptions as of 02/26/2025 - predniSONE (DELTASONE) 10 mg tablet Take 4 tabs daily for 3 days, then 2 tabs daily for 3 days, then 1 tab daily for 3 days with food. - levothyroxine (SYNTHROID) 100 mcg tablet Take 1 tablet by mouth once daily. Take on empty stomach. For Thyroid. - lisinopril (ZESTRIL) 5 mg tablet Take 1 tablet by mouth once daily. - apixaban (ELIQUIS) 5 mg tab(s) Take 1 tablet by mouth two times a day. - carbidopa-levodopa (SINEMET 25-100) 25-100 mg per tablet Take 1 tablet by mouth three times a day. - amLODIPine (NORVASC) 10 mg tablet Take 1 tablet by mouth once daily. - atorvastatin (LIPITOR) 80 mg tablet Take 1 tablet by mouth once daily. - metoprolol succinate ER (TOPROL XL) 50 mg 24 hr tablet Take 1 tablet by mouth once daily. Problem List As Of Date 02/26/2025 Noted Resolved BENIGN HYPERTENSION [I10] 12/22/2006 11/05/2007 TRANSIENT CEREBRAL ISCHEMIA NOS [G45.9] 12/22/2006 Hyperlipemia [E78.5] 04/23/2007 CALCULUS OF KIDNEY [N20.0] 06/08/2007 Essential hypertension [I10] 11/05/2007 Gout with manifestations [M10.9] 10/19/2016 Calculus of gallbladder without cholecystitis w*11/30/2017 02/14/2023 Gallbladder polyp [K82.4] 11/30/2017 02/14/2023 Fatty liver [K76.0] 11/30/2017 Posterior vitreous detachment of left eye [H43.*01/02/2018 Vitreous floaters of both eyes [H43.393] 01/02/2018 Parkinson's disease without dyskinesia or fluct*08/21/2019 Anxiety [F41.9] 08/21/2019 Restless legs syndrome [G25.81] 08/21/2019 02/11/2022 REM sleep behavior disorder [G47.52] 08/21/2019 Hypothyroidism, acquired [E03.9] 05/06/2021 Bilateral carotid artery stenosis [I65.23] 05/31/2021 Thyroid nodule [E04.1] 07/22/2021 Abrasion of upper extremity [S40.819A] 11/21/2023 Diagnosed: 11/21/2023 Acute cholecystitis [K81.0] 11/21/2023 Diagnosed: 11/21/2023 Atrial fibrillation (HCC) [I48.91] 11/21/2023 Diagnosed: 11/21/2023 Epigastric pain [R10.13] 05/20/2022 Diagnosed: 11/21/2023 Gastroesophageal reflux disease [K21.9] 11/21/2023 Diagnosed: 11/21/2023 High serum creatinine [R79.89] 11/21/2023 Diagnosed: 11/21/2023 History of brain disorder [Z86.69] 11/21/2023 Diagnosed: 11/21/2023 Bladder stones [N21.0] 12/05/2023 Disposition: Return in about 6 months (around 08/29/2025) for Follow up visit. Follow-up and Disposition History for Encounter Date Provider Department [id number] Status:Closed by YANIRA GAMBLE on 02/26/25 PROGRESS Observed: 02/26/2025 10:40 AM Status: COMPLETED [id number] Author: YANIRA GAMBLE MD Service: ? Author Type: Physician Type: Progress Notes Filed: 02/26/2025 10:52 Note Text: [facility] SECTION OF REGIONAL CARDIOLOGY OUTPATIENT VISIT DATE 02/26/2025 OUTPATIENT VISIT TYPE ESTABLISHED PRIMARY CARE PHYSICIAN: [address] [place] [address] HISTORY OF PRESENT ILLNESS: Mr. Cooper is a 73 year old male, history of stroke, atrial fibrillation, hypertension, Parkinson's, TIAs, presents for follow-up visit. Previously seen on 08/29/2024. He denies chest pain, SOB, palpitations, orthopnea, PND, leg swelling, lightheadedness, syncope. He reports compliance and good tolerance on eliquis. 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 Prior Hx: He presented to [facility] on 10/19/2023 with blurred vision that started approximately 5:30 in the morning while watching television. Was not able to form words properly. He called 911 as he was concerned for TIA. CT brain without contrast showed no acute intracranial process, chronic involutional and white matter changes. CTA head and neck with contrast 10/19/23 showed no evidence of significant stenosis or occlusion of carotid or vertebral arteries in the neck, no evidence of large vessel occlusion and lummi of Peng. TTE 10/19/2023: EF 60%, grade 1 DD, negative bubble study. Mild MR, AR,TR MRI brain showed acute lacunar infarct right cerebellum with mild chronic involutional and white matter changes. He was noted to have atrial fibrillation. A Zio patch was done on 10/24/23 to 11/07/2023: 40-2 22. 3 VT runs: fastest 6 beats long with max rate 222: Longest 6 beats run rate 132. PSVT runs-5 beats at 194 bpm: Longest 20.1 seconds long HR 112. Less than 1% SVE as well as SVE triplets. Some 1% VE, VE couplets, ventricular bigeminy and trigeminy were present. PAST MEDICAL HISTORY Diagnosis Date Atrial fibrillation (HCC) Calculus of gallbladder without cholecystitis without obstruction 11/30/2017 Gallbladder polyp 11/30/2017 Patient declines follow up. Aware of risks of not diagnosing a gall bladder malignancy Gout History of TIAs 2007 negative workup. bp etiology Hyperlipemia Hypertension Hypothyroidism (acquired) Parkinson's disease (HCC) Personal history of kidney stones 2006 Posterior vitreous detachment of left eye REM sleep behavior disorder PAST SURGICAL HISTORY Procedure Laterality Date L'SCOPE CHOLECYSTECTOMY 09/25/2022 Social History Tobacco Use Smoking status: Never Smokeless tobacco: Never Vaping Use Vaping status: Never Used Substance Use Topics Alcohol use: No Drug use: No FAMILY HISTORY Problem Relation Age of Onset Ischemic Heart Disease Mother 60 other (rheumatoid arthritis) Mother No Known Problems Father ALLERGIES Allergen Reactions Abilify [Aripiprazo* Contraindication-Medical Surgical People with Parkinson's disease should not take this or other antipsychotics except Nuplazid, Seroquel, and Clozaril can be prescribed. Compazine [Prochlor* Contraindication-Medical Surgical This should not be given to people with Parkinson's disease. If not otherwise contraindicated, Zofran should be given instead. Haldol [Haloperidol] Contraindication-Medical Surgical .ewhal Phenergan [Prometha* Contraindication-Medical Surgical This should not be given to people with Parkinson's disease. If not otherwise contraindicated, Zofran should be given instead. Reglan [Metoclopram* Contraindication-Medical Surgical This should not be given to people with Parkinson's disease. If not otherwise contraindicated and for nausea, Zofran should be given instead. CURRENT MEDICATIONS: predniSONE (DELTASONE) 10 mg tablet Take 4 tabs daily for 3 days, then 2 tabs daily for 3 days, then 1 tab daily for 3 days with food. levothyroxine (SYNTHROID) 100 mcg tablet Take 1 tablet by mouth once daily. Take on empty stomach. For Thyroid. lisinopril (ZESTRIL) 5 mg tablet Take 1 tablet by mouth once daily. apixaban (ELIQUIS) 5 mg tab(s) Take 1 tablet by mouth two times a day. carbidopa-levodopa (SINEMET 25-100) 25-100 mg per tablet Take 1 tablet by mouth three times a day. amLODIPine (NORVASC) 10 mg tablet Take 1 tablet by mouth once daily. atorvastatin (LIPITOR) 80 mg tablet Take 1 tablet by mouth once daily. metoprolol succinate ER (TOPROL XL) 50 mg 24 hr tablet Take 1 tablet by mouth once daily. PHYSICAL EXAMINATION: BP 116/60 Pulse 70 Ht 180.3 cm (5' 11) Wt 84 kg (185 lb 3 oz) SpO2 98% BMI 25.83 kg/m? General: Appears comfortable in no apparent cardiopulmonary distress Neck: No JVD, no bruits CVS: Regular rhythm,S1, S2, No m/r/g Chest: CTAB Abd: Soft, nontender, no masses, BS present Ext: No pedal edema, pedal pulses 2+ bilaterally Neuro: No focal neurological deficits ASSESSMENT/PLAN: 1. New onset atrial fibrillation (HCC) - ICD9: 427.31, ICD10: I48.91 [id number] 5. He reports heart rates in the 50s at home. Regular rhythm on exam. - On Eliquis 5 mg p.o. bid. Denies any bleeding or falls or trauma. - On metoprolol 50 mg po daily. Tolerating well. - He would like to f/u in 6 months, sooner if medically necessary. 2. Recent cerebrovascular accident In the setting of paroxysmal afib. - As above - LDL 106 on 06/10/24. Goal LDL <55. On Lipitor 80. - Discussed addition of cholesterol lowering medications such as ezetimibe 10 mg po daily again. He is declining. 3. Nonsustained [place] Recommended stress testing again however patient is declining. He states that he will keep us informed when he is ready to have this testing done. - He is declining repeat monitor tech. - On metoprolol 4. Carotid artery stenosis Mild noted on carotid artery duplex 20-39% bilateral ICA per carotid artery duplex dated 05/31/21; and Neck CTA <30% LICA ? 30% STEFANY - He is declining repeat carotid artery duplex - Continue medical therapy. Declining addition of cholesterol lowering medications such as ezetimibe 10 mg po daily. - We discussed low cholesterol diet- avoid red meats and processed foods, focus on lean portions of white meat- chicken and turkey breast, fish, healthy nuts, fruits, vegetables. - He was counseled on gradually achieving at least 30 minutes of moderate intensity aerobic exercise 5 times per week-biking, brisk walking, hiking, swimming, rowing. Yanira Gamble MD, [facility] PROGRESS Observed: 02/19/2025 8:04 AM Status: COMPLETED Source: [facility] ID: [id number] Author: MARVIN GRACE PA Service: ? Author Type: Physician Check Embosser Type: Progress Notes Filed: 02/19/2025 08:06 Note Text: [facility] Subjective Traci Cooper Jr. is a 74 year old male. Patient presents with: Pain (foot): right x 1 day HPI 74-year-old male presents for right foot pain x 1 day. Patient states that he has history of gout and this feels similar. He has pain in his right foot for the past day. Is worse with walking. It feels like his gout. He usually has in his feet and ankles. He was last treated in December with prednisone which helped. He denies any fall or injury. No numbness or tingling in the foot. No redness. No fevers. No other complaint PAST MEDICAL HISTORY Diagnosis Date Atrial fibrillation (HCC) Calculus of gallbladder without cholecystitis without obstruction 11/30/2017 Gallbladder polyp 11/30/2017 Patient declines follow up. Aware of risks of not diagnosing a gall bladder malignancy Gout History of TIAs 2006 negative workup. bp etiology Hyperlipemia Hypertension Hypothyroidism (acquired) Parkinson's disease (HCC) Personal history of kidney stones 2005 Posterior vitreous detachment of left eye REM sleep behavior disorder PAST SURGICAL HISTORY Procedure Laterality Date L'SCOPE CHOLECYSTECTOMY 09/25/2022 ALLERGIES Abilify [Aripiprazole], Compazine [Prochlorperazine], Haldol [Haloperidol], Phenergan [Promethazine], and Reglan [Metoclopramide] MEDICATIONS levothyroxine (SYNTHROID) 100 mcg tablet Take 1 tablet by mouth once daily. Take on empty stomach. For Thyroid. lisinopril (ZESTRIL) 5 mg tablet Take 1 tablet by mouth once daily. apixaban (ELIQUIS) 5 mg tab(s) Take 1 tablet by mouth two times a day. carbidopa-levodopa (SINEMET 25-100) 25-100 mg per tablet Take 1 tablet by mouth three times a day. amLODIPine (NORVASC) 10 mg tablet Take 1 tablet by mouth once daily. atorvastatin (LIPITOR) 80 mg tablet Take 1 tablet by mouth once daily. metoprolol succinate ER (TOPROL XL) 50 mg 24 hr tablet Take 1 tablet by mouth once daily. predniSONE (DELTASONE) 10 mg tablet Take 4 tabs daily for 3 days, then 2 tabs daily for 3 days, then 1 tab daily for 3 days with food. FAMILY HISTORY Problem Relation Age of Onset Ischemic Heart Disease Mother 60 other (rheumatoid arthritis) Mother No Known Problems Father Social History Tobacco Use Smoking status: Never Smokeless tobacco: Never Vaping Use Vaping status: Never Used Substance Use Topics Alcohol use: No Drug use: No Review of Systems Musculoskeletal: Positive for arthralgias and joint swelling. Objective BP 122/60 Pulse 80 Temp 37.5 ?C (99.5 ?F) Resp 16 Wt 86.4 kg (190 lb 7.6 oz) SpO2 98% BMI 26.57 kg/m? Physical Exam Vitals and nursing note reviewed. Constitutional: General: He is not in acute distress. Appearance: Normal appearance. He is not toxic-appearing. HENT: Mouth/Throat: Mouth: Mucous membranes are moist. Musculoskeletal: Right foot: Swelling, tenderness and bony tenderness present. Legs: Comments: Tenderness and mild swelling over right midfoot. No erythema. Small amount of warmth to the skin. No open wounds or sores. DP and PT pulses 2+. Normal ROM foot and ankle Skin: General: Skin is warm and dry. Neurological: Mental Status: He is alert. {ASSESSMENT/PLAN: 1. Acute gout of right foot, unspecified cause - ICD9: 274.01, ICD10: M10.9 - Rx prednisone taper - Follow-up if no improvement Diagnosis and treatment plan were discussed and questions were answered to the patient's satisfaction. Pt acknowledged understanding of concepts and follow up plan. Specific signs and symptoms that would indicate the need for higher level of care were discussed in detail warranting prompt ER evaluation. LIONEL Mills History and Record Review External record(s) reviewed: prior outpatient record. Differential Diagnoses - Gout is more likely for the following reason(s): suggested by HANDP - Fracture is less likely for the following reason(s): No injury, HANDP not suggestive - Cellulitis is less likely for the following reason(s): HANDP not suggestive Disposition The patient was discharged. Procedures CNOV Observed: 02/19/2025 8:00 AM Status: COMPLETED Source: [facility] Office Visit ([facility]) TRACI COOPER JR. ([id number]) 1950 M Date Time Provider Department 02/19/25 8:00 AM MARVIN GRACE [facility] During your visit today, we recorded the following information about you: Temperature Pulse Respiration Blood pressure 99.5 degrees 80/minute 16/minute 122/60 Weight 86.4 kg Marvin Grace PA 02/19/2025 8:06 AM Signed [facility] Subjective Traci Cooper Jr. is a 74 year old male. Patient presents with: Pain (foot): right x 1 day HPI 74-year-old male presents for right foot pain x 1 day. Patient states that he has history of gout and this feels similar. He has pain in his right foot for the past day. Is worse with walking. It feels like his gout. He usually has in his feet and ankles. He was last treated in December with prednisone which helped. He denies any fall or injury. No numbness or tingling in the foot. No redness. No fevers. No other complaint PAST MEDICAL HISTORY Diagnosis Date Atrial fibrillation (HCC) Calculus of gallbladder without cholecystitis without obstruction 11/30/2017 Gallbladder polyp 11/30/2017 Patient declines follow up. Aware of risks of not diagnosing a gall bladder malignancy Gout History of TIAs 2007 negative workup. bp etiology Hyperlipemia Hypertension Hypothyroidism (acquired) Parkinson's disease (HCC) Personal history of kidney stones 2005 Posterior vitreous detachment of left eye REM sleep behavior disorder PAST SURGICAL HISTORY Procedure Laterality Date L'SCOPE CHOLECYSTECTOMY 09/25/2022 ALLERGIES Abilify [Aripiprazole], Compazine [Prochlorperazine], Haldol [Haloperidol], Phenergan [Promethazine], and Reglan [Metoclopramide] MEDICATIONS levothyroxine (SYNTHROID) 100 mcg tablet Take 1 tablet by mouth once daily. Take on empty stomach. For Thyroid. lisinopril (ZESTRIL) 5 mg tablet Take 1 tablet by mouth once daily. apixaban (ELIQUIS) 5 mg tab(s) Take 1 tablet by mouth two times a day. carbidopa-levodopa (SINEMET 25-100) 25-100 mg per tablet Take 1 tablet by mouth three times a day. amLODIPine (NORVASC) 10 mg tablet Take 1 tablet by mouth once daily. atorvastatin (LIPITOR) 80 mg tablet Take 1 tablet by mouth once daily. metoprolol succinate ER (TOPROL XL) 50 mg 24 hr tablet Take 1 tablet by mouth once daily. predniSONE (DELTASONE) 10 mg tablet Take 4 tabs daily for 3 days, then 2 tabs daily for 3 days, then 1 tab daily for 3 days with food. FAMILY HISTORY Problem Relation Age of Onset Ischemic Heart Disease Mother 60 other (rheumatoid arthritis) Mother No Known Problems Father Social History Tobacco Use Smoking status: Never Smokeless tobacco: Never Vaping Use Vaping status: Never Used Substance Use Topics Alcohol use: No Drug use: No Review of Systems Musculoskeletal: Positive for arthralgias and joint swelling. Objective BP 122/60 Pulse 80 Temp 37.5 ?C (99.5 ?F) Resp 16 Wt 86.4 kg (190 lb 7.6 oz) SpO2 98% BMI 26.57 kg/m? Physical Exam Vitals and nursing note reviewed. Constitutional: General: He is not in acute distress. Appearance: Normal appearance. He is not toxic-appearing. HENT: Mouth/Throat: Mouth: Mucous membranes are moist. Musculoskeletal: Right foot: Swelling, tenderness and bony tenderness present. Legs: Comments: Tenderness and mild swelling over right midfoot. No erythema. Small amount of warmth to the skin. No open wounds or sores. DP and PT pulses 2+. Normal ROM foot and ankle Skin: General: Skin is warm and dry. Neurological: Mental Status: He is alert. {ASSESSMENT/PLAN: 1. Acute gout of right foot, unspecified cause - ICD9: 274.01, ICD10: M10.9 - Rx prednisone taper - Follow-up if no improvement Diagnosis and treatment plan were discussed and questions were answered to the patient's satisfaction. Pt acknowledged understanding of concepts and follow up plan. Specific signs and symptoms that would indicate the need for higher level of care were discussed in detail warranting prompt ER evaluation. LIONEL Mills History and Record Review External record(s) reviewed: prior outpatient record. Differential Diagnoses - Gout is more likely for the following reason(s): suggested by HANDP - Fracture is less likely for the following reason(s): No injury, HANDP not suggestive - Cellulitis is less likely for the following reason(s): HANDP not suggestive Disposition The patient was discharged. Procedures Allergies As of Date: 02/19/2025 Noted Allergy Reaction ABILIFY (ARIPIPRAZOLE) 12/09/2024 15 - Contraindication-Medical Mai* Comments: People with Parkinson's disease should not take this or other antipsychotics except Nuplazid, Seroquel, and Clozaril can be prescribed. COMPAZINE (PROCHLORPERAZINE) 12/09/2024 15 - Contraindication-Medical Mai* Comments: This should not be given to people with Parkinson's disease. If not otherwise contraindicated, Zofran should be given instead. HALDOL (HALOPERIDOL) 12/09/2024 15 - Contraindication-Medical Mai* Comments: .ewhal PHENERGAN (PROMETHAZINE) 12/09/2024 15 - Contraindication-Medical Mai* Comments: This should not be given to people with Parkinson's disease. If not otherwise contraindicated, Zofran should be given instead. REGLAN (METOCLOPRAMIDE) 12/09/2024 15 - Contraindication-Medical Mai* Comments: This should not be given to people with Parkinson's disease. If not otherwise contraindicated and for nausea, Zofran should be given instead. Date Reviewed: 02/19/2025 Reviewed by: Milagros Smith MA - Fully Assessed Reason for Visit: Pain (foot) [760] Cmt: right x 1 day Primary Visit Diagnosis:Acute gout of right foot, unspecified cause [M10.9] Order(s):predniSONE (DELTASONE) 10 mg tabletTake 4 tabs daily for 3 days, then 2 tabs daily for 3 days, then 1 tab daily for 3 days with food.Disp: 21 tabletRfl: 0 Prescriptions as of 02/19/2025 - predniSONE (DELTASONE) 10 mg tablet Take 4 tabs daily for 3 days, then 2 tabs daily for 3 days, then 1 tab daily for 3 days with food. - levothyroxine (SYNTHROID) 100 mcg tablet Take 1 tablet by mouth once daily. Take on empty stomach. For Thyroid. - lisinopril (ZESTRIL) 5 mg tablet Take 1 tablet by mouth once daily. - apixaban (ELIQUIS) 5 mg tab(s) Take 1 tablet by mouth two times a day. - carbidopa-levodopa (SINEMET 25-100) 25-100 mg per tablet Take 1 tablet by mouth three times a day. - amLODIPine (NORVASC) 10 mg tablet Take 1 tablet by mouth once daily. - atorvastatin (LIPITOR) 80 mg tablet Take 1 tablet by mouth once daily. - metoprolol succinate ER (TOPROL XL) 50 mg 24 hr tablet Take 1 tablet by mouth once daily. Problem List As Of Date 02/19/2025 Noted Resolved BENIGN HYPERTENSION [I10] 12/22/2006 11/05/2007 TRANSIENT CEREBRAL ISCHEMIA NOS [G45.9] 12/22/2006 Hyperlipemia [E78.5] 04/23/2007 CALCULUS OF KIDNEY [N20.0] 06/08/2007 Essential hypertension [I10] 11/05/2007 Gout with manifestations [M10.9] 10/19/2016 Calculus of gallbladder without cholecystitis w*11/30/2017 02/14/2023 Gallbladder polyp [K82.4] 11/30/2017 02/14/2023 Fatty liver [K76.0] 11/30/2017 Posterior vitreous detachment of left eye [H43.*01/02/2018 Vitreous floaters of both eyes [H43.393] 01/02/2018 Parkinson's disease without dyskinesia or fluct*08/21/2019 Anxiety [F41.9] 08/21/2019 Restless legs syndrome [G25.81] 08/21/2019 02/11/2022 REM sleep behavior disorder [G47.52] 08/21/2019 Hypothyroidism, acquired [E03.9] 05/06/2021 Bilateral carotid artery stenosis [I65.23] 05/31/2021 Thyroid nodule [E04.1] 07/22/2021 Abrasion of upper extremity [S40.819A] 11/21/2023 Diagnosed: 11/21/2023 Acute cholecystitis [K81.0] 11/21/2023 Diagnosed: 11/21/2023 Atrial fibrillation (HCC) [I48.91] 11/21/2023 Diagnosed: 11/21/2023 Epigastric pain [R10.13] 05/20/2022 Diagnosed: 11/21/2023 Gastroesophageal reflux disease [K21.9] 11/21/2023 Diagnosed: 11/21/2023 High serum creatinine [R79.89] 11/21/2023 Diagnosed: 11/21/2023 History of brain disorder [Z86.69] 11/21/2023 Diagnosed: 11/21/2023 Bladder stones [N21.0] 12/05/2023 Prescriptions ordered this encounter Disp Refills Start End PREDNISONE 10 MG TABLET 21 t* 0 02/19/2025 02/28/2025 Sig: Take 4 tabs daily for 3 days, then 2 tabs daily for 3 days, then 1 tab daily for 3 days with food. Encounter Status:Closed by MARVIN GRACE on 02/19/25 PROGRESS Observed: 01/13/2025 9:00 AM Status: COMPLETED Source: [facility] HNO ID: [id number] Author: ANDERSON ALEJANDRO APRN.CNP Service: ? Author Type: Nurse Practitioner Type: Progress Notes Filed: 01/13/2025 09:09 Note Text: This note was created using [employer]. Subjective Traci Cooper Jr. is a 74 year old male. HPI For the last 4 days patient complains of pain in the right ankle which she states is consistent with his previous gout flares. He otherwise denies any strain or trauma. Denies any fever or any other health concerns. Review of Systems As above Objective BP 128/64 Pulse 74 Temp 36.6 ?C (97.9 ?F) Resp 16 Wt 85.3 kg (188 lb 0.8 oz) SpO2 97% BMI 26.23 kg/m? Physical Exam Vitals and nursing note reviewed. Constitutional: General: He is not in acute distress. Appearance: Normal appearance. He is not ill-appearing. HENT: Head: Normocephalic. Pulmonary: Effort: Pulmonary effort is normal. Musculoskeletal: General: Normal range of motion. Cervical back: Normal range of motion. Comments: Diffuse tenderness over the lateral aspect of the right ankle with no obvious swelling or deformities noted. No pain throughout the foot. Skin: General: Skin is warm and dry. Neurological: General: No focal deficit present. Mental Status: He is alert. Psychiatric: Mood and Affect: Mood normal. Behavior: Behavior normal. Assessment and Plan ASSESSMENT/PLAN: 1. Acute idiopathic gout of right foot - ICD9: 274.01, ICD10: M10.071 No sign of trauma to the foot. No erythema or swelling which would have been concerning for cellulitis. I do suspect gout of the ankle based on patient's clinical presentation. Patient given 5-day prescription for prednisone 40 mg. He will otherwise follow-up with PCP. - PREDNISONE 20 MG TABLET Anderson Alejandro APRN.CNP CNOV Observed: 01/13/2025 9:00 AM Status: COMPLETED Source: [facility] Office Visit ([facility]) KENNETHTRACI Mumtaz GANDHISyl ([id number]) 1950 M Date Time Provider Department 01/13/25 9:00 AM ANDERSON ALEJANDRO [facility] During your visit today, we recorded the following information about you: Temperature Pulse Respiration Blood pressure 97.9 degrees 74/minute 16/minute 128/64 Weight 85.3 kg Anderson Alejandro APRN.LOO[employer]LEAF B[employer]ER COVERER 01/13/2025 9:09 AM Signed This note was created using [employer]. Subjective Traci Rydertina Bran is a 74 year old male. HPI For the last 4 days patient complains of pain in the right ankle which she states is consistent with his previous gout flares. He otherwise denies any strain or trauma. Denies any fever or any other health concerns. Review of Systems As above Objective BP 128/64 Pulse 74 Temp 36.6 ?C (97.9 ?F) Resp 16 Wt 85.3 kg (188 lb 0.8 oz) SpO2 97% BMI 26.23 kg/m? Physical Exam Vitals and nursing note reviewed. Constitutional: General: He is not in acute distress. Appearance: Normal appearance. He is not ill-appearing. HENT: Head: Normocephalic. Pulmonary: Effort: Pulmonary effort is normal. Musculoskeletal: General: Normal range of motion. Cervical back: Normal range of motion. Comments: Diffuse tenderness over the lateral aspect of the right ankle with no obvious swelling or deformities noted. No pain throughout the foot. Skin: General: Skin is warm and dry. Neurological: General: No focal deficit present. Mental Status: He is alert. Psychiatric: Mood and Affect: Mood normal. Behavior: Behavior normal. Assessment and Plan ASSESSMENT/PLAN: 1. Acute idiopathic gout of right foot - ICD9: 274.01, ICD10: M10.071 No sign of trauma to the foot. No erythema or swelling which would have been concerning for cellulitis. I do suspect gout of the ankle based on patient's clinical presentation. Patient given 5-day prescription for prednisone 40 mg. He will otherwise follow-up with PCP. - PREDNISONE 20 MG TABLET Anderson Alejandro APRN.[employer]OOSELE[employer] B[employer]ER COVERER Allergies As of Date: 01/13/2025 Noted Allergy Reaction ABILIFY (ARIPIPRAZOLE) 12/09/2024 15 - Contraindication-Medical Mai* Comments: People with Parkinson's disease should not take this or other antipsychotics except Nuplazid, Seroquel, and Clozaril can be prescribed. COMPAZINE (PROCHLORPERAZINE) 12/09/2024 15 - Contraindication-Medical Mai* Comments: This should not be given to people with Parkinson's disease. If not otherwise contraindicated, Zofran should be given instead. HALDOL (HALOPERIDOL) 12/09/2024 15 - Contraindication-Medical Mai* Comments: .ewhal PHENERGAN (PROMETHAZINE) 12/09/2024 15 - Contraindication-Medical Mai* Comments: This should not be given to people with Parkinson's disease. If not otherwise contraindicated, Zofran should be given instead. REGLAN (METOCLOPRAMIDE) 12/09/2024 15 - Contraindication-Medical Mai* Comments: This should not be given to people with Parkinson's disease. If not otherwise contraindicated and for nausea, Zofran should be given instead. Date Reviewed: 01/13/2025 Reviewed by: Anderson Alejandro APRN.[employer]LEAF B[employer]ER COVERER - Fully Assessed Reason for Visit: Pain (foot) [760] Cmt: right, ? gout x 4 days Primary Visit Diagnosis:Acute idiopathic gout of right foot [M10.071] Order(s):predniSONE (DELTASONE) 20 mg tabletTake 2 tablets by mouth once daily for 5 days.Disp: 10 tabletRfl: 0 Prescriptions as of 01/13/2025 - predniSONE (DELTASONE) 20 mg tablet Take 2 tablets by mouth once daily for 5 days. - levothyroxine (SYNTHROID) 100 mcg tablet Take 1 tablet by mouth once daily. Take on empty stomach. For Thyroid. - lisinopril (ZESTRIL) 5 mg tablet Take 1 tablet by mouth once daily. - apixaban (ELIQUIS) 5 mg tab(s) Take 1 tablet by mouth two times a day. - carbidopa-levodopa (SINEMET 25-100) 25-100 mg per tablet Take 1 tablet by mouth three times a day. - amLODIPine (NORVASC) 10 mg tablet Take 1 tablet by mouth once daily. - atorvastatin (LIPITOR) 80 mg tablet Take 1 tablet by mouth once daily. - metoprolol succinate ER (TOPROL XL) 50 mg 24 hr tablet Take 1 tablet by mouth once daily. Problem List As Of Date 01/13/2025 Noted Resolved BENIGN HYPERTENSION [I10] 12/22/2006 11/05/2007 TRANSIENT CEREBRAL ISCHEMIA NOS [G45.9] 12/22/2006 Hyperlipemia [E78.5] 04/23/2007 CALCULUS OF KIDNEY [N20.0] 06/08/2007 Essential hypertension [I10] 11/05/2007 Gout with manifestations [M10.9] 10/19/2016 Calculus of gallbladder without cholecystitis w*11/30/2017 02/14/2023 Gallbladder polyp [K82.4] 11/30/2017 02/14/2023 Fatty liver [K76.0] 11/30/2017 Posterior vitreous detachment of left eye [H43.*01/02/2018 Vitreous floaters of both eyes [H43.393] 01/02/2018 Parkinson's disease without dyskinesia or fluct*08/21/2019 Anxiety [F41.9] 08/21/2019 Restless legs syndrome [G25.81] 08/21/2019 02/11/2022 REM sleep behavior disorder [G47.52] 08/21/2019 Hypothyroidism, acquired [E03.9] 05/06/2021 Bilateral carotid artery stenosis [I65.23] 05/31/2021 Thyroid nodule [E04.1] 07/22/2021 Abrasion of upper extremity [S40.819A] 11/21/2023 Diagnosed: 11/21/2023 Acute cholecystitis [K81.0] 11/21/2023 Diagnosed: 11/21/2023 Atrial fibrillation (HCC) [I48.91] 11/21/2023 Diagnosed: 11/21/2023 Epigastric pain [R10.13] 05/20/2022 Diagnosed: 11/21/2023 Gastroesophageal reflux disease [K21.9] 11/21/2023 Diagnosed: 11/21/2023 High serum creatinine [R79.89] 11/21/2023 Diagnosed: 11/21/2023 History of brain disorder [Z86.69] 11/21/2023 Diagnosed: 11/21/2023 Bladder stones [N21.0] 12/05/2023 Prescriptions ordered this encounter Disp Refills Start End PREDNISONE 20 MG TABLET 10 t* 0 01/13/2025 01/18/2025 Route: ORAL Sig: Take 2 tablets by mouth once daily for 5 days. Encounter Status:Closed by ANDERSON ALEJANDRO on 01/13/25 TSH SERPL-ACNC Collected: 10:12 AM Status: F Source: [facility] Order Comment: Specimen Type : BLOOD SPECIMEN Ordering Facility: [facility] Address: [address] [place] [address] TYPE CODE TESTS RESULT OUT OF RANGE REFERENCE UNITS LAB 18912-5(LOINC) TSH SerPl DL<=0.005 mIU/L-aCnc 2.670 0.270-4.200 mIU/L Performed By: #### [id number] ## ## [facility] CLIA [id number] [address] [facility] PROGRESS Observed: 12/10/2024 9:46 AM Status: COMPLETED Source: [facility] HNO ID: [id number] Author: DANIELLA VANG APRN.LOOSELEAF BINDER COVERER Service: ? Author Type: Nurse Practitioner Type: Progress Notes Filed: 12/10/2024 10:01 Note Text: This is a 74 year old male who presents today with: Patient presents with: 6 Month Exam HISTORY OF PRESENT ILLNESS: Traci Cooper Jr. is a 74 year old male. Patient presents with: 6 Month Exam No health complaints or concerns PAST MEDICAL HISTORY: PAST MEDICAL HISTORY Diagnosis Date Atrial fibrillation (HCC) Calculus of gallbladder without cholecystitis without obstruction 11/30/2017 Gallbladder polyp 11/30/2017 Patient declines follow up. Aware of risks of not diagnosing a gall bladder malignancy Gout History of TIAs 2007 negative workup. bp etiology Hyperlipemia Hypertension Hypothyroidism (acquired) Parkinson's disease (HCC) Personal history of kidney stones 2006 Posterior vitreous detachment of left eye REM sleep behavior disorder PAST SURGICAL HISTORY Procedure Laterality Date L'SCOPE CHOLECYSTECTOMY 09/25/2022 ALLERGIES Abilify [Aripiprazole], Compazine [Prochlorperazine], Haldol [Haloperidol], Phenergan [Promethazine], and Reglan [Metoclopramide] MEDICATIONS Current Outpatient Medications Medication Sig apixaban (ELIQUIS) 5 mg tab(s) Take 1 tablet by mouth two times a day. colchicine 0.6 mg tablet Take 2 tabs by mouth, followed by 1 tab one hr later for gout flare. May repeat in 1 week. Wait 12hr after gout flare before resuming prophylaxis med (allopurinol). levothyroxine (SYNTHROID) 100 mcg tablet Take 1 tablet by mouth once daily. Take on empty stomach. For Thyroid. carbidopa-levodopa (SINEMET 25-100) 25-100 mg per tablet Take 1 tablet by mouth three times a day. amLODIPine (NORVASC) 10 mg tablet Take 1 tablet by mouth once daily. atorvastatin (LIPITOR) 80 mg tablet Take 1 tablet by mouth once daily. lisinopril (ZESTRIL) 5 mg tablet Take 1 tablet by mouth once daily. metoprolol succinate ER (TOPROL XL) 50 mg 24 hr tablet Take 1 tablet by mouth once daily. No current facility-administered medications for this visit. FAMILY HISTORY Problem Relation Age of Onset Ischemic Heart Disease Mother 60 other (rheumatoid arthritis) Mother No Known Problems Father Social History Tobacco Use Smoking status: Never Smokeless tobacco: Never Vaping Use Vaping status: Never Used Substance Use Topics Alcohol use: No Drug use: No REVIEW OF SYSTEMS GENERAL: No weight loss, malaise or fevers/chills, a little tired HEENT: Negative for frequent or significant headaches, No changes in hearing or vision. NECK: Negative for lumps, goiter, pain and significant neck swelling RESPIRATORY: Negative for cough, hemoptysis, wheezing, dyspnea or shortness of breath CARDIOVASCULAR: Negative for chest pain, leg swelling, orthopnea, or palpitations GI: No nausea, vomiting, or diarrhea/ + constipation. No hematochezia/melena. No heartburn or reflux symptoms. : No history of dysuria, frequency or incontinence MUSCULOSKELETAL: Negative for joint pain or swelling. SKIN: Negative for lesions, rash, and itching ENDOCRINE: Negative for cold or heat intolerance, polyuria, polydipsia and goiter NEURO: No history of headaches, syncope, paralysis, harinder seizures, Parkinson's tremors MOOD: Negative for depression, anxiety, or suicidal ideation. EXAM: BP 128/66 Pulse 64 Temp 36.3 ?C (97.3 ?F) (Left Tympanic) Wt 84.8 kg (187 lb) SpO2 96% BMI 26.08 kg/m? PHYSICAL EXAM: Physical Exam Vitals reviewed. Constitutional: Appearance: Normal appearance. HENT: Head: Normocephalic. Neck: Vascular: No carotid bruit. Comments: Poor posture and thyroid some mild enlargement Cardiovascular: Rate and Rhythm: Normal rate and regular rhythm. Pulses: Normal pulses. Heart sounds: Normal heart sounds. Pulmonary: Effort: Pulmonary effort is normal. Breath sounds: Normal breath sounds. Abdominal: General: Bowel sounds are normal. Palpations: Abdomen is soft. Tenderness: There is no abdominal tenderness. There is no guarding or rebound. Musculoskeletal: Right lower leg: No edema. Left lower leg: No edema. Comments: Moves all ext., poor posuture Lymphadenopathy: Cervical: No cervical adenopathy. Skin: General: Skin is warm and dry. Neurological: Mental Status: He is alert and oriented to person, place, and time. Comments: Resting tremors Psychiatric: Mood and Affect: Mood normal. Behavior: Behavior normal. LABS: check labs ASSESSMENT/PLAN: 1. Parkinson's disease without dyskinesia or fluctuating manifestations (HCC) - ICD9: 332.0, ICD10: G20.A1 (primary diagnosis) Follows with neurology 2. Hypothyroidism, acquired - ICD9: 244.9, ICD10: E03.9 - Instructed patient on importance of taking on an empty stomach either first thing in the morning or at bedtime. Check TSH, then renew synthroid 3. Pure hypercholesterolemia - ICD9: 272.0, ICD10: E78.00 Stable 4. Essential hypertension - ICD9: 401.9, ICD10: I10 - Controlled - Recommend home blood pressure monitoring, to bring results to next visit - Encouraged sodium restriction, DASH or Mediterranean diet - Recommend regular aerobic exercise 5. Paroxysmal atrial fibrillation (HCC) - ICD9: 427.31, ICD10: I48.0 Anticoagulated on Eliquis 6. Gout with manifestations - ICD9: 274.89, ICD10: M10.9 Rare flares, colchicine doesn't help- only prednisone helps - METHYLPREDNISOLONE 4 MG TABLETS IN A DOSE PACK 7. Chronic constipation - ICD9: 564.00, ICD10: K59.09 Samples of Miralax given Discussed treatment plan and patient voices understanding. Patient's questions answered appropriately. Medications and potential side effects were discussed and patient voices understanding. Return to the office as scheduled or as needed for worsening/no improvement. Daniella Vang APRN.CNP CNOV Observed: 12/10/2024 9:20 AM Status: COMPLETED Source: [facility] TRACI COOPER JR. ([id number]) 1950 M Date Time Provider Department 12/10/24 9:20 AM DANIELLA VANG During your visit today, we recorded the following information about you: Temperature Pulse Blood pressure Weight 97.3 degrees 64/minute 128/66 84.8 kg Daniella Vang APRN.CNP 12/10/2024 10:01 AM Signed This is a 74 year old male who presents today with: Patient presents with: 6 Month Exam HISTORY OF PRESENT ILLNESS: Traci Cooper Jr. is a 74 year old male. Patient presents with: 6 Month Exam No health complaints or concerns PAST MEDICAL HISTORY: PAST MEDICAL HISTORY Diagnosis Date Atrial fibrillation (HCC) Calculus of gallbladder without cholecystitis without obstruction 11/30/2017 Gallbladder polyp 11/30/2017 Patient declines follow up. Aware of risks of not diagnosing a gall bladder malignancy Gout History of TIAs 2007 negative workup. bp etiology Hyperlipemia Hypertension Hypothyroidism (acquired) Parkinson's disease (HCC) Personal history of kidney stones 2005 Posterior vitreous detachment of left eye REM sleep behavior disorder PAST SURGICAL HISTORY Procedure Laterality Date L'SCOPE CHOLECYSTECTOMY 09/25/2022 ALLERGIES Abilify [Aripiprazole], Compazine [Prochlorperazine], Haldol [Haloperidol], Phenergan [Promethazine], and Reglan [Metoclopramide] MEDICATIONS Current Outpatient Medications Medication Sig apixaban (ELIQUIS) 5 mg tab(s) Take 1 tablet by mouth two times a day. colchicine 0.6 mg tablet Take 2 tabs by mouth, followed by 1 tab one hr later for gout flare. May repeat in 1 week. Wait 12hr after gout flare before resuming prophylaxis med (allopurinol). levothyroxine (SYNTHROID) 100 mcg tablet Take 1 tablet by mouth once daily. Take on empty stomach. For Thyroid. carbidopa-levodopa (SINEMET 25-100) 25-100 mg per tablet Take 1 tablet by mouth three times a day. amLODIPine (NORVASC) 10 mg tablet Take 1 tablet by mouth once daily. atorvastatin (LIPITOR) 80 mg tablet Take 1 tablet by mouth once daily. lisinopril (ZESTRIL) 5 mg tablet Take 1 tablet by mouth once daily. metoprolol succinate ER (TOPROL XL) 50 mg 24 hr tablet Take 1 tablet by mouth once daily. No current facility-administered medications for this visit. FAMILY HISTORY Problem Relation Age of Onset Ischemic Heart Disease Mother 60 other (rheumatoid arthritis) Mother No Known Problems Father Social History Tobacco Use Smoking status: Never Smokeless tobacco: Never Vaping Use Vaping status: Never Used Substance Use Topics Alcohol use: No Drug use: No REVIEW OF SYSTEMS GENERAL: No weight loss, malaise or fevers/chills, a little tired HEENT: Negative for frequent or significant headaches, No changes in hearing or vision. NECK: Negative for lumps, goiter, pain and significant neck swelling RESPIRATORY: Negative for cough, hemoptysis, wheezing, dyspnea or shortness of breath CARDIOVASCULAR: Negative for chest pain, leg swelling, orthopnea, or palpitations GI: No nausea, vomiting, or diarrhea/ + constipation. No hematochezia/melena. No heartburn or reflux symptoms. : No history of dysuria, frequency or incontinence MUSCULOSKELETAL: Negative for joint pain or swelling. SKIN: Negative for lesions, rash, and itching ENDOCRINE: Negative for cold or heat intolerance, polyuria, polydipsia and goiter NEURO: No history of headaches, syncope, paralysis, harinder seizures, Parkinson's tremors MOOD: Negative for depression, anxiety, or suicidal ideation. EXAM: BP 128/66 Pulse 64 Temp 36.3 ?C (97.3 ?F) (Left Tympanic) Wt 84.8 kg (187 lb) SpO2 96% BMI 26.08 kg/m? PHYSICAL EXAM: Physical Exam Vitals reviewed. Constitutional: Appearance: Normal appearance. HENT: Head: Normocephalic. Neck: Vascular: No carotid bruit. Comments: Poor posture and thyroid some mild enlargement Cardiovascular: Rate and Rhythm: Normal rate and regular rhythm. Pulses: Normal pulses. Heart sounds: Normal heart sounds. Pulmonary: Effort: Pulmonary effort is normal. Breath sounds: Normal breath sounds. Abdominal: General: Bowel sounds are normal. Palpations: Abdomen is soft. Tenderness: There is no abdominal tenderness. There is no guarding or rebound. Musculoskeletal: Right lower leg: No edema. Left lower leg: No edema. Comments: Moves all ext., poor posuture Lymphadenopathy: Cervical: No cervical adenopathy. Skin: General: Skin is warm and dry. Neurological: Mental Status: He is alert and oriented to person, place, and time. Comments: Resting tremors Psychiatric: Mood and Affect: Mood normal. Behavior: Behavior normal. LABS: check labs ASSESSMENT/PLAN: 1. Parkinson's disease without dyskinesia or fluctuating manifestations (HCC) - ICD9: 332.0, ICD10: G20.A1 (primary diagnosis) Follows with neurology 2. Hypothyroidism, acquired - ICD9: 244.9, ICD10: E03.9 - Instructed patient on importance of taking on an empty stomach either first thing in the morning or at bedtime. Check TSH, then renew synthroid 3. Pure hypercholesterolemia - ICD9: 272.0, ICD10: E78.00 Stable 4. Essential hypertension - ICD9: 401.9, ICD10: I10 - Controlled - Recommend home blood pressure monitoring, to bring results to next visit - Encouraged sodium restriction, DASH or Mediterranean diet - Recommend regular aerobic exercise 5. Paroxysmal atrial fibrillation (HCC) - ICD9: 427.31, ICD10: I48.0 Anticoagulated on Eliquis 6. Gout with manifestations - ICD9: 274.89, ICD10: M10.9 Rare flares, colchicine doesn't help- only prednisone helps - METHYLPREDNISOLONE 4 MG TABLETS IN A DOSE PACK 7. Chronic constipation - ICD9: 564.00, ICD10: K59.09 Samples of Miralax given Discussed treatment plan and patient voices understanding. Patient's questions answered appropriately. Medications and potential side effects were discussed and patient voices understanding. Return to the office as scheduled or as needed for worsening/no improvement. MALDONADO Sanabria Jacqueline A, APRN.CNP 12/10/2024 10:01 AM Addendum 1) Check lab today for thyroid level 2) Medrol Dosepak for gout flare 3) Miralax OTC daily as needed for constipation 4) Follow up in 6 months Daniella Vang APRN.CNP 12/10/2024 10:02 AM Signed Addended by: DANIELLA VANG on: 12/10/2024 10:02 AM Modules accepted: Orders Allergies As of Date: 12/10/2024 Noted Allergy Reaction ABILIFY (ARIPIPRAZOLE) 12/09/2024 15 - Contraindication-Medical Mai* Comments: People with Parkinson's disease should not take this or other antipsychotics except Nuplazid, Seroquel, and Clozaril can be prescribed. COMPAZINE (PROCHLORPERAZINE) 12/09/2024 15 - Contraindication-Medical Mai* Comments: This should not be given to people with Parkinson's disease. If not otherwise contraindicated, Zofran should be given instead. HALDOL (HALOPERIDOL) 12/09/2024 15 - Contraindication-Medical Mai* Comments: .ewhal PHENERGAN (PROMETHAZINE) 12/09/2024 15 - Contraindication-Medical Mai* Comments: This should not be given to people with Parkinson's disease. If not otherwise contraindicated, Zofran should be given instead. REGLAN (METOCLOPRAMIDE) 12/09/2024 15 - Contraindication-Medical Mai* Comments: This should not be given to people with Parkinson's disease. If not otherwise contraindicated and for nausea, Zofran should be given instead. Date Reviewed: 12/10/2024 Reviewed by: Malgorzata King MA - Fully Assessed Reason for Visit: 6 Month Exam [189] Primary Visit Diagnosis:Parkinson's disease without dyskinesia or fluctuating manifestations (HCC) [G20.A1] Other Visit Diagnoses:Hypothyroidism, acquired [E03.9] Pure hypercholesterolemia [E78.00] Essential hypertension [I10] Paroxysmal atrial fibrillation (HCC) [I48.0] Gout with manifestations [M10.9] Chronic constipation [K59.09] Order(s):methylPREDNISolone (MEDROL DOSE-PACK) 4 mg Dose-PackTake as instructed per package. For gout flareDisp: 21 tabletRfl: 0 lisinopril (ZESTRIL) 5 mg tabletTake 1 tablet by mouth once daily.Disp: 90 tabletRfl: 3 Prescriptions as of 12/10/2024 - methylPREDNISolone (MEDROL DOSE-PACK) 4 mg Dose-Pack Take as instructed per package. For gout flare - lisinopril (ZESTRIL) 5 mg tablet Take 1 tablet by mouth once daily. - apixaban (ELIQUIS) 5 mg tab(s) Take 1 tablet by mouth two times a day. - levothyroxine (SYNTHROID) 100 mcg tablet Take 1 tablet by mouth once daily. Take on empty stomach. For Thyroid. - carbidopa-levodopa (SINEMET 25-100) 25-100 mg per tablet Take 1 tablet by mouth three times a day. - amLODIPine (NORVASC) 10 mg tablet Take 1 tablet by mouth once daily. - atorvastatin (LIPITOR) 80 mg tablet Take 1 tablet by mouth once daily. - metoprolol succinate ER (TOPROL XL) 50 mg 24 hr tablet Take 1 tablet by mouth once daily. Problem List As Of Date 12/10/2024 Noted Resolved BENIGN HYPERTENSION [I10] 12/22/2006 11/05/2007 TRANSIENT CEREBRAL ISCHEMIA NOS [G45.9] 12/22/2006 Hyperlipemia [E78.5] 04/23/2007 CALCULUS OF KIDNEY [N20.0] 06/08/2007 Essential hypertension [I10] 11/05/2007 Gout with manifestations [M10.9] 10/19/2016 Calculus of gallbladder without cholecystitis w*11/30/2017 02/14/2023 Gallbladder polyp [K82.4] 11/30/2017 02/14/2023 Fatty liver [K76.0] 11/30/2017 Posterior vitreous detachment of left eye [H43.*01/02/2018 Vitreous floaters of both eyes [H43.393] 01/02/2018 Parkinson's disease without dyskinesia or fluct*08/21/2019 Anxiety [F41.9] 08/21/2019 Restless legs syndrome [G25.81] 08/21/2019 02/11/2022 REM sleep behavior disorder [G47.52] 08/21/2019 Hypothyroidism, acquired [E03.9] 05/06/2021 Bilateral carotid artery stenosis [I65.23] 05/31/2021 Thyroid nodule [E04.1] 07/22/2021 Abrasion of upper extremity [S40.819A] 11/21/2023 Diagnosed: 11/21/2023 Acute cholecystitis [K81.0] 11/21/2023 Diagnosed: 11/21/2023 Atrial fibrillation (HCC) [I48.91] 11/21/2023 Diagnosed: 11/21/2023 Epigastric pain [R10.13] 05/20/2022 Diagnosed: 11/21/2023 Gastroesophageal reflux disease [K21.9] 11/21/2023 Diagnosed: 11/21/2023 High serum creatinine [R79.89] 11/21/2023 Diagnosed: 11/21/2023 History of brain disorder [Z86.69] 11/21/2023 Diagnosed: 11/21/2023 Bladder stones [N21.0] 12/05/2023 Other instructions from your clinician: 1) Check lab today for thyroid level 2) Medrol Dosepak for gout flare 3) Miralax OTC daily as needed for constipation 4) Follow up in 6 months Prescriptions ordered this encounter Disp Refills Start End METHYLPREDNISOLONE 4 MG TABLETS IN A* 21 t* 0 12/10/2024 12/16/2024 Sig: Take as instructed per package. For gout flare LISINOPRIL 5 MG TABLET 90 t* 3 12/10/2024 12/10/2025 Route: ORAL Sig: Take 1 tablet by mouth once daily. Medications Discontinued During This Encounter Prescriptions - colchicine 0.6 mg tablet (Discontinued) Take 2 tabs by mouth, followed by 1 tab one hr later for gout flare. May repeat in 1 week. Wait 12hr after gout flare before resuming prophylaxis med (allopurinol). - lisinopril (ZESTRIL) 5 mg tablet (Discontinued) Take 1 tablet by mouth once daily. Level of Service: OFFICE/OUTPATIENT ESTABLISHED MOD MDM 30 MIN [66873] Additional E/M codes: VISIT CPLX INHERENT EANDM ASSOC WITH MED * Disposition: Return in about 6 months (around 06/09/2025) for physical. Follow-up and Disposition History for Encounter Date Provider Department Center 12/10/2024 [id number]-MZDODJARTHUR VANG*[facility] Encounter Status:Closed by DANIELLA VANG on 12/10/24 CNOV Observed: 12/09/2024 10:00 AM Status: COMPLETED Source: [facility] Office Visit (NRMDN) UNAJESSETINATRACI JR. ([id number]) 1950 M Date Time Provider Department 12/09/24 10:00 AM SADE BECKMAN During your visit today, we recorded the following information about you: Pulse Blood pressure Weight Height 67/minute 134/71 85.3 kg 1.803 m Sade Beckman APRN.CNP 12/09/2024 11:38 AM Signed [facility] - FOLLOW UP EVALUATION Primary Movement Disorders Neurologist: Andrez Beckman MD Primary Movement Disorders TORI: ALIVIA Franco APRN.[employer] [id number] [facility] [id number] Dear Daniella Vang APRN.[employer] C[employer]ER: I had the pleasure of seeing Mr. Cooper for follow-up today. As you know he is a 74 year old right-handed male with a history of Parkinson's disease since 2019. He is seen alone. Subjective Previous Plan- 06/05/2024 Visit: Parkinson's disease: Continue current medication schedule-please consistently take it on time Continue your hobbies keeping your hands and mind busy Please let me know if you change your mind about getting occupational therapy Constipation: Try using Miralax daily. Sialorrhea (drooling): You have been provided with a hand out on drooling. Please do not hesitate to let me know if you have any questions about anything you read. Interval History: Tremor is the same. 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 Movement Disorders Medications Schedule - as of the start of the visit: Medications 3am 12pm 5pm Sinemet 25/100 1 1 1 Parkinson's Motor Complications Medication benefit onset: unclear Medication duration: unclear Wearing off: no Painful off-state dystonia: no Dyskinesia: no Prior Anti-Parkinson Therapies Carbidopa/Levodopa Questionnaires: In addition, the following areas that may be affected by abnormal involuntary movements were evaluated: Daily activities Difficulties with eating: Difficulties in dressing: Difficulties with hygiene activities: Difficulties with handwriting: Difficulties with doing hobbies and other activities: Difficulties turning in bed: Difficulties getting out of bed, car or chair: Tremors/Gait/Balance Shaking or tremors: Yes Walking and balance problems: Yes Number of falls in the Last Month: None Gait freezing: Yes with initiation Autonomic/Pain Lightheadeness on standing: Occasionally Urinary problems: No Constipation problems: Yes Pain and other sensations: No Speech/Swallowing Speech problems: He said he gets tongue tied and has trouble with word finding sometimes. Drooling: Yes Chewing and swallowing problems: No Sleep/Fatigue Sleep problems: He gets up frequently to go to the bathroom. The urologist offered, but he does not want to try medication at this time. Daytime sleepiness: Yes Fatigue: Yes In addition, the following non-motor symptoms and palliative concerns were evaluated: Sleep/Fatigue: REM sleep behavior disorder: No Restless Legs Syndrome: No Leg swelling: No Impaired sense of smell: No Cognition: Memory and Thinking: He said STM is not as good as LTM. Hallucinations and Psychosis: 0 - Normal. No hallucinations or psychotic behavior. Depressed Mood: 1 - Slight. Episodes of depressed mood that are not sustained for more than one day at a time. No interference with my ability to carry out normal activities and social interactions. Anxious Mood: 0 - Normal. No anxious feelings. Apathy: He is not sure and said he does not know how to answer this. Impulse Control: 0 - Normal. No problems present. MoCA Cognitive assessment: 23 (12/09/2024) Palliative Concerns: Caregiver burden: Spiritual concerns: No Advanced directives on file: No Palliative services: No Therapy and Exercise: Last PT Date: Last OT Date: Last ST Date: Exercises Regularly: He is physically active at work and in the summer he is more active but he does not do structured exercise. ALLERGIES Allergen Reactions Abilify [Aripiprazo* Contraindication-Medical Surgical People with Parkinson's disease should not take this or other antipsychotics except Nuplazid, Seroquel, and Clozaril can be prescribed. Compazine [Prochlor* Contraindication-Medical Surgical This should not be given to people with Parkinson's disease. If not otherwise contraindicated, Zofran should be given instead. Haldol [Haloperidol] Contraindication-Medical Surgical .ewhal Phenergan [Prometha* Contraindication-Medical Surgical This should not be given to people with Parkinson's disease. If not otherwise contraindicated, Zofran should be given instead. Reglan [Metoclopram* Contraindication-Medical Surgical This should not be given to people with Parkinson's disease. If not otherwise contraindicated and for nausea, Zofran should be given instead. Current Outpatient Medications Medication Sig carbidopa-levodopa (SINEMET 25-100) 25-100 mg per tablet Take 1 tablet by mouth three times a day. amLODIPine (NORVASC) 10 mg tablet Take 1 tablet by mouth once daily. apixaban (ELIQUIS) 5 mg tab(s) Take 1 tablet by mouth two times a day. colchicine 0.6 mg tablet Take 2 tabs by mouth, followed by 1 tab one hr later for gout flare. May repeat in 1 week. Wait 12hr after gout flare before resuming prophylaxis med (allopurinol). levothyroxine (SYNTHROID) 100 mcg tablet Take 1 tablet by mouth once daily. Take on empty stomach. For Thyroid. atorvastatin (LIPITOR) 80 mg tablet Take 1 tablet by mouth once daily. lisinopril (ZESTRIL) 5 mg tablet Take 1 tablet by mouth once daily. metoprolol succinate ER (TOPROL XL) 50 mg 24 hr tablet Take 1 tablet by mouth once daily. No current facility-administered medications for this visit. Objective Vital Signs: BP 134/71 (BP Site: Left Arm, BP Position: Standing, BP Cuff Size: Regular Adult) Pulse 67 Ht 180.3 cm (5' 11) Wt 85.3 kg (188 lb 0.8 oz) SpO2 98% BMI 26.23 kg/m? Orthostatic Vitals: None for this encounter No LMP for male patient. Body mass index is 26.23 kg/m?. Movement Disorders Scales Performed: [place] Cognitive Assessment (MoCA) Visuospatial/Executive 3 Naming 3 Attention 4 Language 2 Abstraction 2 Delayed Memory 2 Orientation 6 Education < or equal to 12 years (1 is true, 0 is false) 1 MoCA Total Score 23 MDS-UPDRS Motor subscale condition of exam Medication Off/On/Naiive ON Time of UPDRS 1018 Time of Last Medication 0500 Last Medication Taken Sinemet 25/100 1 tablets DBS Right N/A DBS Left N/A MDS-UPDRS Motor subscale scores Speech 1-Slight. Loss of modulation, diction or volume, but still all words easy to understand. Facial Expression 2-Mild. In addition to decreased eye-blink frequency, Masked facies present in the lower face as well, namely fewer movements around the mouth, such as less spontaneous smiling, but lips not parted. Rigidity Neck 2-Mild. Rigidity detected without the activation maneuver, but full range of motion is easily achieved. Rigidity Right Upper Extremity 1-Slight. Rigidity only detected with activation maneuver. Rigidity Left Upper Extremity 2-Mild. Rigidity detected without the activation maneuver, but full range of motion is easily achieved. Rigidity Right Lower Extremity 1-Slight. Rigidity only detected with activation maneuver. Rigidity Left Lower Extremity 2-Mild. Rigidity detected without the activation maneuver, but full range of motion is easily achieved. Finger Taps Right 1-Slight. a) the regular rhythm is broken with one or two interruptions or hesitations of the tapping movement, b) slight slowing, c) the amplitude decrements near the end of the 10 taps. Finger Taps Left 1-Slight. a) the regular rhythm is broken with one or two interruptions or hesitations of the tapping movement, b) slight slowing, c) the amplitude decrements near the end of the 10 taps. Hand Movements Right 1-Slight. a) the regular [...] the 1st supination-pronation sequence. Arm Movements Left 2-Mild. a) 3 to 5 interruptions during the movements, b) mild slowing, c) the amplitude decrements midway in the sequence. Toe Taps Right 2-Mild. a) 3 [...] end of the task. Leg Agility Left 3-Moderate. a) more than 5 interruptions during the movement or at least one longer arrest (freeze) in ongoing movement, b) moderate slowing in speed, c) amplitude decrements after the first tap. Arise From Chair 0-Normal. No problems. Able to arise quickly without hesitation. Gait 1-Slight. Independent walking with minor gait impairment. Gait Freezing 0-Normal. No freezing. Posture Stability 1-Slight. 3-5 steps, but subject recovers unaided. (deferred to last) Posture 3-Moderate. Stooped posture, scoliosis or leaning to one side that cannot be corrected volitionally to a normal posture by the patient. Body Bradykinesia 1-Slight. Slight global slowness and poverty of spontaneous movements. Postural Tremor Hand Right 1-Slight. Tremor is present but less than 1cm in amplitude. Postural Tremor Hand Left 1-Slight. Tremor is present but less than 1cm in amplitude. Kinetic Tremor Right 0-Normal. No tremor. Kinetic [...] 0-Normal. No tremor. Rest Tremor Amplitude Lip/Jaw 1-Slight. < 1 cm in maximal amplitude. Rest Tremor Constancy 4-Severe. Tremor at rest is present > 75% of the entire examination period. MDS-UPDRS Motor subscale totals Left Total 16 Right Total 13 Midline Total 12 Tremor Total / 10 10 PIGD Total / 3 2 Overall Total 45 Change Better/Worse WORSE % Change Compared to Last Filed Total (!) 95.65 Pertinent Studies 05/01/18 Brain MRI Impression: No acute intracranial findings. No intracranial mass or pathologic enhancement. Mild parenchymal volume loss and mild sequela of chronic microvascular ischemia. Assessment and Plan: Assessment Mr. Cooper is a right-handed 74 year old year old male with Parkinson's disease since 2019. Overall, he is unchanged. Tremor is still quite significant, but he does not want to make any changes. I also checked a MoCA today due and he scored 23/30. We will continue to monitor. Other non-motor concerns were addressed as noted below. The following are the current problems noted and addressed during this visit: Parkinson's disease without dyskinesia or fluctuating manifestations (hcc) Plan 12/09/2024 Visit: Parkinson's disease: Continue current medication schedule-please consistently take it on time Continue your hobbies keeping your hands and mind busy Please let me know if you change your mind about getting occupational therapy Constipation: Try using Miralax or Metamucil daily Sialorrhea (drooling): You have been provided with a hand out on drooling. Cognition: We will continue to monitor Vision: When you are able, please get your eyes checked Orthostatic hypotension (drops in blood pressure):Your blood pressure sometimes drops but the medications you take to lower blood pressure is likely why. Please change positions slowly and stay well hydrated. Interested in clinical research? Not currently Updated Movement Disorders Medication Schedule: Medications 3am 12pm 5pm Sinemet 25/100 1 1 1 Return at or around: 06/08/25 Level of service : 42531 (40-68 min). Time spent 47 min on the day of service, which included preparing to see the patient, [id number] patient care, completing clinical documentation, obtaining and/or reviewing separately obtained history, performing a medically appropriate examination, and counseling and educating the patient/family/caregiver. Sade Beckman APRN.Sade Michelle APRN.ALIVIA 12/09/2024 10:45 AM Addendum It was a pleasure to see you today. We addressed the following diagnoses: Parkinson's disease without dyskinesia or fluctuating manifestations (hcc) My recommendations are as follows: 12/09/2024 Visit: Parkinson's disease: Continue current medication schedule-please consistently take it on time Continue your hobbies keeping your hands and mind busy Please let me know if you change your mind about getting occupational therapy Constipation: Try using Miralax or Metamucil daily Sialorrhea (drooling): You have been provided with a hand out on drooling. Cognition: We will continue to monitor Vision: When you are able, please get your eyes checked Orthostatic hypotension (drops in blood pressure):Your blood pressure sometimes drops but the medications you take to lower blood pressure so this is likely why. Please change positions slowly and stay well hydrated. Interested in clinical research? Not currently Movement Disorders Medication Schedule: Medications 3am 12pm 5pm Sinemet 25/100 1 1 1 Return at or around: 06/08/25 If there are any concerns before your next visit, please call or you can send a message through [employer]. You can also now schedule and select appointments through [employer]. Sade Beckman APRN.[employer] COVERER From the Parkinson's Foundation: [email or web address].parkinson.org What Can [...] (an anticholinergic): This treatment is given as 1-2 drops under the tongue per day to [...] drinking dairy products can make phlegm worse. Referring Provider: SADE BECKMAN [[id number]] Allergies As of Date: 12/09/2024 Noted Allergy Reaction ABILIFY (ARIPIPRAZOLE) 12/09/2024 15 - Contraindication-Medical Mai* Comments: People with Parkinson's disease should not take this or other antipsychotics except Nuplazid, Seroquel, and Clozaril can be prescribed. COMPAZINE (PROCHLORPERAZINE) 12/09/2024 15 - Contraindication-Medical Mai* Comments: This should not be given to people with Parkinson's disease. If not otherwise contraindicated, Zofran should be given instead. HALDOL (HALOPERIDOL) 12/09/2024 15 - Contraindication-Medical Mai* Comments: .ewhal PHENERGAN (PROMETHAZINE) 12/09/2024 15 - Contraindication-Medical Mai* Comments: This should not be given to people with Parkinson's disease. If not otherwise contraindicated, Zofran should be given instead. REGLAN (METOCLOPRAMIDE) 12/09/2024 15 - Contraindication-Medical Mai* Comments: This should not be given to people with Parkinson's disease. If not otherwise contraindicated and for nausea, Zofran should be given instead. Date Reviewed: 12/09/2024 Reviewed by: Sade Beckman APRN.LOOSELEAF BINDER COVERER - Fully Assessed Reason for Visit: Parkinson's Disease [582] Primary Visit Diagnosis:Constipation, unspecified constipation type [K59.00] Other Visit Diagnoses:Parkinson's disease without dyskinesia or fluctuating manifestations (HCC) [G20.A1] Sialorrhea [K11.7] Orthostatic hypotension [I95.1] Order(s):PROVIDER ORDERED FOLLOW UP [[id number]] Order #: [id number]: 1 apixaban (ELIQUIS) 5 mg tab(s)Take 1 tablet by mouth two times a day.Disp: Rfl: PROVIDER ORDERED FOLLOW UP [[id number]] Order #: [id number]: 1 FUTURE Prescriptions as of 12/09/2024 - apixaban (ELIQUIS) 5 mg tab(s) Take 1 tablet by mouth two times a day. - colchicine 0.6 mg tablet Take 2 tabs by mouth, followed by 1 tab one hr later for gout flare. May repeat in 1 week. Wait 12hr after gout flare before resuming prophylaxis med (allopurinol). - levothyroxine (SYNTHROID) 100 mcg tablet Take 1 tablet by mouth once daily. Take on empty stomach. For Thyroid. - carbidopa-levodopa (SINEMET 25-100) 25-100 mg per tablet Take 1 tablet by mouth three times a day. - amLODIPine (NORVASC) 10 mg tablet Take 1 tablet by mouth once daily. - atorvastatin (LIPITOR) 80 mg tablet Take 1 tablet by mouth once daily. - lisinopril (ZESTRIL) 5 mg tablet Take 1 tablet by mouth once daily. - metoprolol succinate ER (TOPROL XL) 50 mg 24 hr tablet Take 1 tablet by mouth once daily. Medication notes this encounter CARBIDOPA 25 MG-LEVODOPA 100 MG TABLET >> Malgorzata Kaufman MA 12/09/2024 9:52 AM >> MALGORZATA KAUFMAN [facility] Dec 09, 2024 9:52 AM Pt takes 1 tab in the morning and 1 tab at bedtime Problem List As Of Date 12/09/2024 Noted Resolved BENIGN HYPERTENSION [I10] 12/22/2006 11/05/2007 TRANSIENT CEREBRAL ISCHEMIA NOS [G45.9] 12/22/2006 Hyperlipemia [E78.5] 04/23/2007 CALCULUS OF KIDNEY [N20.0] 06/08/2007 Essential hypertension [I10] 11/05/2007 Gout with manifestations [M10.9] 10/19/2016 Calculus of gallbladder without cholecystitis w*11/30/2017 02/14/2023 Gallbladder polyp [K82.4] 11/30/2017 02/14/2023 Fatty liver [K76.0] 11/30/2017 Posterior vitreous detachment of left eye [H43.*01/02/2018 Vitreous floaters of both eyes [H43.393] 01/02/2018 Parkinson's disease without dyskinesia or fluct*08/21/2019 Anxiety [F41.9] 08/21/2019 Restless legs syndrome [G25.81] 08/21/2019 02/11/2022 REM sleep behavior disorder [G47.52] 08/21/2019 Hypothyroidism, acquired [E03.9] 05/06/2021 Bilateral carotid artery stenosis [I65.23] 05/31/2021 Thyroid nodule [E04.1] 07/22/2021 Abrasion of upper extremity [S40.819A] 11/21/2023 Diagnosed: 11/21/2023 Acute cholecystitis [K81.0] 11/21/2023 Diagnosed: 11/21/2023 Atrial fibrillation (HCC) [I48.91] 11/21/2023 Diagnosed: 11/21/2023 Epigastric pain [R10.13] 05/20/2022 Diagnosed: 11/21/2023 Gastroesophageal reflux disease [K21.9] 11/21/2023 Diagnosed: 11/21/2023 High serum creatinine [R79.89] 11/21/2023 Diagnosed: 11/21/2023 History of brain disorder [Z86.69] 11/21/2023 Diagnosed: 11/21/2023 Bladder stones [N21.0] 12/05/2023 Other instructions from your clinician: It was a pleasure to see you today. We addressed the following diagnoses: Parkinson's disease without dyskinesia or fluctuating manifestations (hcc) My recommendations are as follows: 12/09/2024 Visit: Parkinson's disease: Continue current medication schedule-please consistently take it on time Continue your hobbies keeping your hands and mind busy Please let me know if you change your mind about getting occupational therapy Constipation: Try using Miralax or Metamucil daily Sialorrhea (drooling): You have been provided with a hand out on drooling. Cognition: We will continue to monitor Vision: When you are able, please get your eyes checked Orthostatic hypotension (drops in blood pressure):Your blood pressure sometimes drops but the medications you take to lower blood pressure so this is likely why. Please change positions slowly and stay well hydrated. Interested in clinical research? Not currently Movement Disorders Medication Schedule: Medications 3am 12pm 5pm Sinemet 25/100 1 1 1 Return at or around: 06/08/25 If there are any concerns before your next visit, please call or you can send a message through [employer]. You can also now schedule and select appointments through [employer]. Sade Beckman APRN.LOOSELEAF BINDER COVERER From the Parkinson's Foundation: [email or web address] What Can [...] (an anticholinergic): This treatment is given as 1-2 drops under the tongue per day to [...] drinking dairy products can make phlegm worse. Prescriptions ordered this encounter Disp Refills Start End APIXABAN 5 MG TABLET 12/09/2024 Class: Med Update Route: ORAL Sig: Take 1 tablet by mouth two times a day. Encounter Status:Closed by SADE BECKMAN on 12/09/24 PROGRESS Observed: 12/09/2024 10:00 AM Status: COMPLETED Source: [facility] HNO ID: [id number] Author: SADE BECKMAN APRN.ALIVIA Service: ? Author Type: Nurse Practitioner Type: Progress Notes Filed: 12/09/2024 11:38 Note Text: [facility] - FOLLOW UP EVALUATION Primary Movement Disorders Neurologist: Andrez Beckman MD Primary Movement Disorders TORI: ALIVIA Franco APRN.LOOSELEAF BINDER COVERER [address] [facility] [address] Dear Daniella Vang APRN.LOOSELEAF BINDER COVERER: I had the pleasure of seeing Mr. Cooper for follow-up today. As you know he is a 74 year old right-handed male with a history of Parkinson's disease since 2019. He is seen alone. Subjective Previous Plan- 06/05/2024 Visit: Parkinson's disease: Continue current medication schedule-please consistently take it on time Continue your hobbies keeping your hands and mind busy Please let me know if you change your mind about getting occupational therapy Constipation: Try using Miralax daily. Sialorrhea (drooling): You have been provided with a hand out on drooling. Please do not hesitate to let me know if you have any questions about anything you read. Interval History: Tremor is the same. 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 Movement Disorders Medications Schedule - as of the start of the visit: Medications 3am 12pm 5pm Sinemet 25/100 1 1 1 Parkinson's Motor Complications Medication benefit onset: unclear Medication duration: unclear Wearing off: no Painful off-state dystonia: no Dyskinesia: no Prior Anti-Parkinson Therapies Carbidopa/Levodopa Questionnaires: In addition, the following areas that may be affected by abnormal involuntary movements were evaluated: Daily activities Difficulties with eating: Difficulties in dressing: Difficulties with hygiene activities: Difficulties with handwriting: Difficulties with doing hobbies and other activities: Difficulties turning in bed: Difficulties getting out of bed, car or chair: Tremors/Gait/Balance Shaking or tremors: Yes Walking and balance problems: Yes Number of falls in the Last Month: None Gait freezing: Yes with initiation Autonomic/Pain Lightheadeness on standing: Occasionally Urinary problems: No Constipation problems: Yes Pain and other sensations: No Speech/Swallowing Speech problems: He said he gets tongue tied and has trouble with word finding sometimes. Drooling: Yes Chewing and swallowing problems: No Sleep/Fatigue Sleep problems: He gets up frequently to go to the bathroom. The urologist offered, but he does not want to try medication at this time. Daytime sleepiness: Yes Fatigue: Yes In addition, the following non-motor symptoms and palliative concerns were evaluated: Sleep/Fatigue: REM sleep behavior disorder: No Restless Legs Syndrome: No Leg swelling: No Impaired sense of smell: No Cognition: Memory and Thinking: He said STM is not as good as LTM. Hallucinations and Psychosis: 0 - Normal. No hallucinations or psychotic behavior. Depressed Mood: 1 - Slight. Episodes of depressed mood that are not sustained for more than one day at a time. No interference with my ability to carry out normal activities and social interactions. Anxious Mood: 0 - Normal. No anxious feelings. Apathy: He is not sure and said he does not know how to answer this. Impulse Control: 0 - Normal. No problems present. MoCA Cognitive assessment: 23 (12/09/2024) Palliative Concerns: Caregiver burden: Spiritual concerns: No Advanced directives on file: No Palliative services: No Therapy and Exercise: Last PT Date: Last OT Date: ST Date: Exercises Regularly: He is physically active at work and in the summer he is more active but he does not do structured exercise. ALLERGIES Allergen Reactions Abilify [Aripiprazo* Contraindication-Medical Surgical People with Parkinson's disease should not take this or other antipsychotics except Nuplazid, Seroquel, and Clozaril can be prescribed. Compazine [Prochlor* Contraindication-Medical Surgical This should not be given to people with Parkinson's disease. If not otherwise contraindicated, Zofran should be given instead. Haldol [Haloperidol] Contraindication-Medical Surgical .ewhal Phenergan [Prometha* Contraindication-Medical Surgical This should not be given to people with Parkinson's disease. If not otherwise contraindicated, Zofran should be given instead. Reglan [Metoclopram* Contraindication-Medical Surgical This should not be given to people with Parkinson's disease. If not otherwise contraindicated and for nausea, Zofran should be given instead. Current Outpatient Medications Medication Sig carbidopa-levodopa (SINEMET 25-100) 25-100 mg per tablet Take 1 tablet by mouth three times a day. amLODIPine (NORVASC) 10 mg tablet Take 1 tablet by mouth once daily. apixaban (ELIQUIS) 5 mg tab(s) Take 1 tablet by mouth two times a day. colchicine 0.6 mg tablet Take 2 tabs by mouth, followed by 1 tab one hr later for gout flare. May repeat in 1 week. Wait 12hr after gout flare before resuming prophylaxis med (allopurinol). levothyroxine (SYNTHROID) 100 mcg tablet Take 1 tablet by mouth once daily. Take on empty stomach. For Thyroid. atorvastatin (LIPITOR) 80 mg tablet Take 1 tablet by mouth once daily. lisinopril (ZESTRIL) 5 mg tablet Take 1 tablet by mouth once daily. metoprolol succinate ER (TOPROL XL) 50 mg 24 hr tablet Take 1 tablet by mouth once daily. No current facility-administered medications for this visit. Objective Vital Signs: BP 134/71 (BP Site: Left Arm, BP Position: Standing, BP Cuff Size: Regular Adult) Pulse 67 Ht 180.3 cm (5' 11) Wt 85.3 kg (188 lb 0.8 oz) SpO2 98% BMI 26.23 kg/m? Orthostatic Vitals: None for this encounter No LMP for male patient. Body mass index is 26.23 kg/m?. Movement Disorders Scales Performed: Mal Cognitive Assessment (MoCA) Visuospatial/Executive 3 Naming 3 Attention 4 Language 2 Abstraction 2 Delayed Memory 2 Orientation 6 Education < or equal to 12 years (1 is true, 0 is false) 1 MoCA Total Score 23 MDS-UPDRS Motor subscale condition of exam Medication Off/On/Naiive ON Time of UPDRS 1018 Time of Last Medication 0500 Last Medication Taken Sinemet 25/100 1 tablets DBS Right N/A DBS Left N/A MDS-UPDRS Motor subscale scores Speech 1-Slight. Loss of modulation, diction or volume, but still all words easy to understand. Facial Expression 2-Mild. In addition to decreased eye-blink frequency, Masked facies present in the lower face as well, namely fewer movements around the mouth, such as less spontaneous smiling, but lips not parted. Rigidity Neck 2-Mild. Rigidity detected without the activation maneuver, but full range of motion is easily achieved. Rigidity Right Upper Extremity 1-Slight. Rigidity only detected with activation maneuver. Rigidity Left Upper Extremity 2-Mild. Rigidity detected without the activation maneuver, but full range of motion is easily achieved. Rigidity Right Lower Extremity 1-Slight. Rigidity only detected with activation maneuver. Rigidity Left Lower Extremity 2-Mild. Rigidity detected without the activation maneuver, but full range of motion is easily achieved. Finger Taps Right 1-Slight. a) the regular rhythm is broken with one or two interruptions or hesitations of the tapping movement, b) slight slowing, c) the amplitude decrements near the end of the 10 taps. Finger Taps Left 1-Slight. a) the regular rhythm is broken with one or two interruptions or hesitations of the tapping movement, b) slight slowing, c) the amplitude decrements near the end of the 10 taps. Hand Movements Right 1-Slight. a) the regular [...] the 1st supination-pronation sequence. Arm Movements Left 2-Mild. a) 3 to 5 interruptions during the movements, b) mild slowing, c) the amplitude decrements midway in the sequence. Toe Taps Right 2-Mild. a) 3 [...] end of the task. Leg Agility Left 3-Moderate. a) more than 5 interruptions during the movement or at least one longer arrest (freeze) in ongoing movement, b) moderate slowing in speed, c) amplitude decrements after the first tap. Arise From Chair 0-Normal. No problems. Able to arise quickly without hesitation. Gait 1-Slight. Independent walking with minor gait impairment. Gait Freezing 0-Normal. No freezing. Posture Stability 1-Slight. 3-5 steps, but subject recovers unaided. (deferred to last) Posture 3-Moderate. Stooped posture, scoliosis or leaning to one side that cannot be corrected volitionally to a normal posture by the patient. Body Bradykinesia 1-Slight. Slight global slowness and poverty of spontaneous movements. Postural Tremor Hand Right 1-Slight. Tremor is present but less than 1cm in amplitude. Postural Tremor Hand Left 1-Slight. Tremor is present but less than 1cm in amplitude. Kinetic Tremor Right 0-Normal. No tremor. Kinetic [...] 0-Normal. No tremor. Rest Tremor Amplitude Lip/Jaw 1-Slight. < 1 cm in maximal amplitude. Rest Tremor Constancy 4-Severe. Tremor at rest is present > 75% of the entire examination period. MDS-UPDRS Motor subscale totals Left Total 16 Right Total 13 Midline Total 12 Tremor Total / 10 10 PIGD Total / 3 2 Overall Total 45 Change Better/Worse WORSE % Change Compared to Last Filed Total (!) 95.65 Pertinent Studies 05/01/18 Brain MRI Impression: No acute intracranial findings. No intracranial mass or pathologic enhancement. Mild parenchymal volume loss and mild sequela of chronic microvascular ischemia. Assessment and Plan: Assessment Mr. Cooper is a right-handed 74 year old year old male with Parkinson's disease since 2019. Overall, he is unchanged. Tremor is still quite significant, but he does not want to make any changes. I also checked a MoCA today due and he scored 23/30. We will continue to monitor. Other non-motor concerns were addressed as noted below. The following are the current problems noted and addressed during this visit: Parkinson's disease without dyskinesia or fluctuating manifestations (hcc) Plan 12/09/2024 Visit: Parkinson's disease: Continue current medication schedule-please consistently take it on time Continue your hobbies keeping your hands and mind busy Please let me know if you change your mind about getting occupational therapy Constipation: Try using Miralax or Metamucil daily Sialorrhea (drooling): You have been provided with a hand out on drooling. Cognition: We will continue to monitor Vision: When you are able, please get your eyes checked Orthostatic hypotension (drops in blood pressure):Your blood pressure sometimes drops but the medications you take to lower blood pressure is likely why. Please change positions slowly and stay well hydrated. Interested in clinical research? Not currently Updated Movement Disorders Medication Schedule: Medications 3am 12pm 5pm Sinemet 25/100 1 1 1 Return at or around: 06/08/25 Level of service : 11016 (40-68 min). Time spent 47 min on the day of service, which included preparing to see the patient, [id number] patient care, completing clinical documentation, obtaining and/or reviewing separately obtained history, performing a medically appropriate examination, and counseling and educating the patient/family/caregiver. Sade Beckman APRN.ALIVIA PROGRESS Observed: 09/30/2024 11:03 AM Status: COMPLETED Source: [facility] ID: [id number] Author: DANIELLA VANG APRN.ALIVIA Service: ? Author Type: Clinical Nurse Specialist Type: Progress Notes Filed: 09/30/2024 11:18 Note Text: This is a 74 year old male who presents today with: No chief complaint on file. HISTORY OF PRESENT ILLNESS: Traci Cooper Jr. is a 74 year old male. With increase in levothyroxine, he had cramping and diarrhea. No N/V Had gall bladder out 2 years ago Had it a week ago- intermittent No weight loss or gain, no fever or chills No H/A No nodules in neck noted No chest pain or dyspnea No abd. Pain No hematuria + resting tremor noted No joint pain or swelling Had been having episodes of gout PAST MEDICAL HISTORY: PAST MEDICAL HISTORY Diagnosis Date Atrial fibrillation (HCC) Calculus of gallbladder without cholecystitis without obstruction 11/30/2017 Gallbladder polyp 11/30/2017 Patient declines follow up. Aware of risks of not diagnosing a gall bladder malignancy Gout History of TIAs 2006 negative workup. bp etiology Hyperlipemia Hypertension Hypothyroidism (acquired) Parkinson's disease (HCC) Personal history of kidney stones 2005 Posterior vitreous detachment of left eye REM sleep behavior disorder PAST SURGICAL HISTORY Procedure Laterality Date L'SCOPE CHOLECYSTECTOMY 09/25/2022 ALLERGIES Patient has no known allergies. MEDICATIONS Current Outpatient Medications Medication Sig levothyroxine (SYNTHROID) 100 mcg tablet Take 1 tablet by mouth once daily. Take on empty stomach. For Thyroid. carbidopa-levodopa (SINEMET 25-100) 25-100 mg per tablet Take 1 tablet by mouth three times a day. amLODIPine (NORVASC) 10 mg tablet Take 1 tablet by mouth once daily. atorvastatin (LIPITOR) 80 mg tablet Take 1 tablet by mouth once daily. lisinopril (ZESTRIL) 5 mg tablet Take 1 tablet by mouth once daily. metoprolol succinate ER (TOPROL XL) 50 mg 24 hr tablet Take 1 tablet by mouth once daily. apixaban (ELIQUIS) 5 mg tab(s) Take 1 tablet by mouth two times a day. No current facility-administered medications for this visit. FAMILY HISTORY Problem Relation Age of Onset Ischemic Heart Disease Mother 60 other (rheumatoid arthritis) Mother No Known Problems Father Social History Tobacco Use Smoking status: Never Smokeless tobacco: Never Vaping Use Vaping status: Never Used Substance Use Topics Alcohol use: No Drug use: No EXAM: BP 118/64 Pulse 75 Temp 36.3 ?C (97.4 ?F) (Tympanic) Resp 14 Wt 87.4 kg (192 lb 10.9 oz) SpO2 97% BMI 26.87 kg/m? PHYSICAL EXAM: Physical Exam Vitals reviewed. Constitutional: Appearance: Normal appearance. Neck: Comments: Full rodrigez Cardiovascular: Rate and Rhythm: Normal rate and regular rhythm. Pulses: Normal pulses. Heart sounds: Normal heart sounds. Pulmonary: Effort: Pulmonary effort is normal. Breath sounds: Normal breath sounds. Musculoskeletal: Cervical back: Normal range of motion and neck supple. Comments: Gout flares intermittent- left or right foot- could not tolerate allopurinol Skin: General: Skin is warm and dry. Neurological: Mental Status: He is alert. Comments: Resting tremor Psychiatric: Mood and Affect: Mood normal. Behavior: Behavior normal. LABS: ASSESSMENT/PLAN: 1. Acute idiopathic gout of multiple sites - ICD9: 274.01, ICD10: M10.09 (primary diagnosis) Intermittent- last flare about 10 days ago - COLCHICINE 0.6 MG TABLET for prn use 2. Essential hypertension - ICD9: 401.9, ICD10: I10 - Controlled - Recommend home blood pressure monitoring, to bring results to next visit - Encouraged sodium restriction, DASH or Mediterranean diet - Recommend regular aerobic exercise 3. Hypothyroidism, acquired - ICD9: 244.9, ICD10: E03.9 - Instructed patient on importance of taking on an empty stomach either first thing in the morning or at bedtime. - Concern for diarrhea on levothyroxine Discussed treatment plan and patient voices understanding. Patient's questions answered appropriately. Medications and potential side effects were discussed and patient voices understanding. Return to the office as scheduled or as needed for worsening/no improvement. Daniella Vang APRN.LOOSELEAF BINDER COVERER CNOV Observed: 09/30/2024 11:00 AM Status: COMPLETED Source: [facility] TRACI COOPER JR. ([id number]) 1950 M Date Time Provider Department 09/30/24 11:00 AM DANIELLA VANG During your visit today, we recorded the following information about you: Temperature Pulse Respiration Blood pressure 97.4 degrees 75/minute 14/minute 118/64 Weight 87.4 kg Daniella Vang APRN.CNP 09/30/2024 11:18 AM Signed This is a 74 year old male who presents today with: No chief complaint on file. HISTORY OF PRESENT ILLNESS: Traci Cooper Jr. is a 74 year old male. With increase in levothyroxine, he had cramping and diarrhea. No N/V Had gall bladder out 2 years ago Had it a week ago- intermittent No weight loss or gain, no fever or chills No H/A No nodules in neck noted No chest pain or dyspnea No abd. Pain No hematuria + resting tremor noted No joint pain or swelling Had been having episodes of gout PAST MEDICAL HISTORY: PAST MEDICAL HISTORY Diagnosis Date Atrial fibrillation (HCC) Calculus of gallbladder without cholecystitis without obstruction 11/30/2017 Gallbladder polyp 11/30/2017 Patient declines follow up. Aware of risks of not diagnosing a gall bladder malignancy Gout History of TIAs 2006 negative workup. bp etiology Hyperlipemia Hypertension Hypothyroidism (acquired) Parkinson's disease (HCC) Personal history of kidney stones 2005 Posterior vitreous detachment of left eye REM sleep behavior disorder PAST SURGICAL HISTORY Procedure Laterality Date L'SCOPE CHOLECYSTECTOMY 09/25/2022 ALLERGIES Patient has no known allergies. MEDICATIONS Current Outpatient Medications Medication Sig levothyroxine (SYNTHROID) 100 mcg tablet Take 1 tablet by mouth once daily. Take on empty stomach. For Thyroid. carbidopa-levodopa (SINEMET 25-100) 25-100 mg per tablet Take 1 tablet by mouth three times a day. amLODIPine (NORVASC) 10 mg tablet Take 1 tablet by mouth once daily. atorvastatin (LIPITOR) 80 mg tablet Take 1 tablet by mouth once daily. lisinopril (ZESTRIL) 5 mg tablet Take 1 tablet by mouth once daily. metoprolol succinate ER (TOPROL XL) 50 mg 24 hr tablet Take 1 tablet by mouth once daily. apixaban (ELIQUIS) 5 mg tab(s) Take 1 tablet by mouth two times a day. No current facility-administered medications for this visit. FAMILY HISTORY Problem Relation Age of Onset Ischemic Heart Disease Mother 60 other (rheumatoid arthritis) Mother No Known Problems Father Social History Tobacco Use Smoking status: Never Smokeless tobacco: Never Vaping Use Vaping status: Never Used Substance Use Topics Alcohol use: No Drug use: No EXAM: BP 118/64 Pulse 75 Temp 36.3 ?C (97.4 ?F) (Tympanic) Resp 14 Wt 87.4 kg (192 lb 10.9 oz) SpO2 97% BMI 26.87 kg/m? PHYSICAL EXAM: Physical Exam Vitals reviewed. Constitutional: Appearance: Normal appearance. Neck: Comments: Full rodrigez Cardiovascular: Rate and Rhythm: Normal rate and regular rhythm. Pulses: Normal pulses. Heart sounds: Normal heart sounds. Pulmonary: Effort: Pulmonary effort is normal. Breath sounds: Normal breath sounds. Musculoskeletal: Cervical back: Normal range of motion and neck supple. Comments: Gout flares intermittent- left or right foot- could not tolerate allopurinol Skin: General: Skin is warm and dry. Neurological: Mental Status: He is alert. Comments: Resting tremor Psychiatric: Mood and Affect: Mood normal. Behavior: Behavior normal. LABS: ASSESSMENT/PLAN: 1. Acute idiopathic gout of multiple sites - ICD9: 274.01, ICD10: M10.09 (primary diagnosis) Intermittent- last flare about 10 days ago - COLCHICINE 0.6 MG TABLET for prn use 2. Essential hypertension - ICD9: 401.9, ICD10: I10 - Controlled - Recommend home blood pressure monitoring, to bring results to next visit - Encouraged sodium restriction, DASH or Mediterranean diet - Recommend regular aerobic exercise 3. Hypothyroidism, acquired - ICD9: 244.9, ICD10: E03.9 - Instructed patient on importance of taking on an empty stomach either first thing in the morning or at bedtime. - Concern for diarrhea on levothyroxine Discussed treatment plan and patient voices understanding. Patient's questions answered appropriately. Medications and potential side effects were discussed and patient voices understanding. Return to the office as scheduled or as needed for worsening/no improvement. MALDONADO Sanabria Jacqueline A, APRN.CNP 09/30/2024 11:18 AM Addendum 1) Colchicine 2 tablets at onset of gout and 1 tab an hour later- only as needed 2) Check TSH in Nov. 3) Follow up in Nov as scheduled Referring Provider: SELF [200] Allergies As of Date: 09/30/2024 (No Known Allergies) Date Reviewed: 09/30/2024 Reviewed by: Daniella Vang APRN.CNP - Fully Assessed Primary Visit Diagnosis:Acute idiopathic gout of multiple sites [M10.09] Other Visit Diagnoses:Essential hypertension [I10] Hypothyroidism, acquired [E03.9] Order(s):colchicine 0.6 mg tabletTake 2 tabs by mouth, followed by 1 tab one hr later for gout flare. May repeat in 1 week. Wait 12hr after gout flare before resuming prophylaxis med (allopurinol).Disp: 6 tabletRfl: 11 Prescriptions as of 09/30/2024 - colchicine 0.6 mg tablet Take 2 tabs by mouth, followed by 1 tab one hr later for gout flare. May repeat in 1 week. Wait 12hr after gout flare before resuming prophylaxis med (allopurinol). - levothyroxine (SYNTHROID) 100 mcg tablet Take 1 tablet by mouth once daily. Take on empty stomach. For Thyroid. - carbidopa-levodopa (SINEMET 25-100) 25-100 mg per tablet Take 1 tablet by mouth three times a day. - amLODIPine (NORVASC) 10 mg tablet Take 1 tablet by mouth once daily. - atorvastatin (LIPITOR) 80 mg tablet Take 1 tablet by mouth once daily. - lisinopril (ZESTRIL) 5 mg tablet Take 1 tablet by mouth once daily. - metoprolol succinate ER (TOPROL XL) 50 mg 24 hr tablet Take 1 tablet by mouth once daily. - apixaban (ELIQUIS) 5 mg tab(s) Take 1 tablet by mouth two times a day. Problem List As Of Date 09/30/2024 Noted Resolved BENIGN HYPERTENSION [I10] 12/22/2006 11/05/2007 TRANSIENT CEREBRAL ISCHEMIA NOS [G45.9] 12/22/2006 Hyperlipemia [E78.5] 04/23/2007 CALCULUS OF KIDNEY [N20.0] 06/08/2007 Essential hypertension [I10] 11/05/2007 Gout with manifestations [M10.9] 10/19/2016 Calculus of gallbladder without cholecystitis w*11/30/2017 02/14/2023 Gallbladder polyp [K82.4] 11/30/2017 02/14/2023 Fatty liver [K76.0] 11/30/2017 Posterior vitreous detachment of left eye [H43.*01/02/2018 Vitreous floaters of both eyes [H43.393] 01/02/2018 Parkinson's disease without dyskinesia or fluct*08/21/2019 Anxiety [F41.9] 08/21/2019 Restless legs syndrome [G25.81] 08/21/2019 02/11/2022 REM sleep behavior disorder [G47.52] 08/21/2019 Hypothyroidism, acquired [E03.9] 05/06/2021 Bilateral carotid artery stenosis [I65.23] 05/31/2021 Thyroid nodule [E04.1] 07/22/2021 Abrasion of upper extremity [S40.819A] 11/21/2023 Diagnosed: 11/21/2023 Acute cholecystitis [K81.0] 11/21/2023 Diagnosed: 11/21/2023 Atrial fibrillation (HCC) [I48.91] 11/21/2023 Diagnosed: 11/21/2023 Epigastric pain [R10.13] 05/20/2022 Diagnosed: 11/21/2023 Gastroesophageal reflux disease [K21.9] 11/21/2023 Diagnosed: 11/21/2023 High serum creatinine [R79.89] 11/21/2023 Diagnosed: 11/21/2023 History of brain disorder [Z86.69] 11/21/2023 Diagnosed: 11/21/2023 Bladder stones [N21.0] 12/05/2023 Other instructions from your clinician: 1) Colchicine 2 tablets at onset of gout and 1 tab an hour later- only as needed 2) Check TSH in Nov. 3) Follow up in Nov as scheduled Prescriptions ordered this encounter Disp Refills Start End COLCHICINE 0.6 MG TABLET 6 ta* 11 09/30/2024 Sig: Take 2 tabs by mouth, followed by 1 tab one hr later for gout flare. May repeat in 1 week. Wait 12hr after gout flare before resuming prophylaxis med (allopurinol). Level of Service: OFFICE/OUTPATIENT ESTABLISHED LOW MDM 20 MIN [07646] Additional E/M codes: VISIT CPLX INHERENT EANDM ASSOC WITH MED * Encounter Status:Closed by DANIELLA VANG on 09/30/24 TOMY Observed: 09/24/2024 12:00 AM Status: COMPLETED Source: [facility] Telephone ([facility]) TRACI COOPER Mumtaz ([id number]) 1950 M Date Time Provider Department 09/24/24 DANIELLA VANG During your visit today, we recorded the following information about you: Daniella Vang APRN.LOOSELEAF BINDER COVERER 09/24/2024 8:10 AM Signed Please let patient know that TSH is a little high meaning not enough thyroid replacement. I am going to follow the levothyroxine dose up to 100 mcg daily. Please recheck a TSH around November 16. Ximena Coffey RN 09/24/2024 9:49 AM Signed Called and left a voicemail for the Patient to call back and ask for a nurse to receive the providers message. JESSIKA Martinez Laurie Lynn, LPN 09/24/2024 10:54 AM Signed Spoke with pt and information listed below given. Pt verbalizes understanding. Rosemarie Stark LPN Allergies As of Date: 09/24/2024 (No Known Allergies) Date Reviewed: 08/29/2024 Reviewed by: Milagros Murrell MA - Fully Assessed Reason for Visit: Results [95] Visit Diagnosis:Hypothyroidism, acquired [E03.9] Order(s):levothyroxine (SYNTHROID) 100 mcg tabletTake 1 tablet by mouth once daily. Take on empty stomach. For Thyroid.Disp: 90 tabletRfl: 0 THYROID STIMULATING HORMONE [SQTSH] Order #: [id number] FUTURE Prescriptions as of 09/24/2024 - levothyroxine (SYNTHROID) 100 mcg tablet Take 1 tablet by mouth once daily. Take on empty stomach. For Thyroid. - carbidopa-levodopa (SINEMET 25-100) 25-100 mg per tablet Take 1 tablet by mouth three times a day. - amLODIPine (NORVASC) 10 mg tablet Take 1 tablet by mouth once daily. - atorvastatin (LIPITOR) 80 mg tablet Take 1 tablet by mouth once daily. - lisinopril (ZESTRIL) 5 mg tablet Take 1 tablet by mouth once daily. - metoprolol succinate ER (TOPROL XL) 50 mg 24 hr tablet Take 1 tablet by mouth once daily. - apixaban (ELIQUIS) 5 mg tab(s) Take 1 tablet by mouth two times a day. Problem List As Of Date 09/24/2024 Noted Resolved BENIGN HYPERTENSION [I10] 12/22/2006 11/05/2007 TRANSIENT CEREBRAL ISCHEMIA NOS [G45.9] 12/22/2006 Hyperlipemia [E78.5] 04/23/2007 CALCULUS OF KIDNEY [N20.0] 06/08/2007 Essential hypertension [I10] 11/05/2007 Gout with manifestations [M10.9] 10/19/2016 Calculus of gallbladder without cholecystitis w*11/30/2017 02/14/2023 Gallbladder polyp [K82.4] 11/30/2017 02/14/2023 Fatty liver [K76.0] 11/30/2017 Posterior vitreous detachment of left eye [H43.*01/02/2018 Vitreous floaters of both eyes [H43.393] 01/02/2018 Parkinson's disease without dyskinesia or fluct*08/21/2019 Anxiety [F41.9] 08/21/2019 Restless legs syndrome [G25.81] 08/21/2019 02/11/2022 REM sleep behavior disorder [G47.52] 08/21/2019 Hypothyroidism, acquired [E03.9] 05/06/2021 Bilateral carotid artery stenosis [I65.23] 05/31/2021 Thyroid nodule [E04.1] 07/22/2021 Abrasion of upper extremity [S40.819A] 11/21/2023 Diagnosed: 11/21/2023 Acute cholecystitis [K81.0] 11/21/2023 Diagnosed: 11/21/2023 Atrial fibrillation (HCC) [I48.91] 11/21/2023 Diagnosed: 11/21/2023 Epigastric pain [R10.13] 05/20/2022 Diagnosed: 11/21/2023 Gastroesophageal reflux disease [K21.9] 11/21/2023 Diagnosed: 11/21/2023 High serum creatinine [R79.89] 11/21/2023 Diagnosed: 11/21/2023 History of brain disorder [Z86.69] 11/21/2023 Diagnosed: 11/21/2023 Bladder stones [N21.0] 12/05/2023 Prescriptions ordered this encounter Disp Refills Start End LEVOTHYROXINE 100 MCG TABLET 90 t* 0 09/24/2024 12/23/2024 Route: ORAL Sig: Take 1 tablet by mouth once daily. Take on empty stomach. For Thyroid. Medications Discontinued During This Encounter Prescriptions - levothyroxine (SYNTHROID) 75 mcg tablet (Discontinued) Take 1 tablet by mouth once daily. Take on empty stomach. For Thyroid. Encounter Status:Closed by ROSEMARIE STARK on 09/24/24 TSH SERPL-ACNC Collected: 9:17 AM Status: F Source: [facility] Order Comment: Specimen Type : BLOOD SPECIMEN Ordering Facility: [facility] Address: [address] [place] [address] TYPE CODE TESTS RESULT OUT OF RANGE REFERENCE UNITS LAB 3016-3(LOINC) TSH SerPl-aCnc 5.040 High 0.270-4.200 mIU/L Performed By: #### 3016-3 ## ## [facility] CLIA [id number] [address] [place] [address] OF [facility] CNOV Observed: 08/29/2024 10:40 AM Status: COMPLETED Source: [facility] Office Visit (YARY) TRACI COOPER JR. ([id number]) 1950 M Date Time Provider Department 08/29/24 10:40 AM YANIRA GAMBLE During your visit today, we recorded the following information about you: Pulse Blood pressure Weight Height 68/minute 118/60 85 kg 1.803 m Yanira Gamble MD 08/29/2024 12:41 PM Signed [facility] SECTION OF REGIONAL CARDIOLOGY OUTPATIENT VISIT DATE 08/29/24 OUTPATIENT VISIT TYPE ESTABLISHED PRIMARY CARE PHYSICIAN: Celso Julien [address] [place] [address] HISTORY OF PRESENT ILLNESS: Mr. Cooper is a 73 year old male, history of stroke, hypertension, Parkinson's, TIAs , presents for follow-up visit. He presented to [facility] on 10/19/2023 with blurred vision that started approximately 5:30 in the morning while watching television. Was not able to form words properly. He called 911 as he was concerned for TIA. CT brain without contrast showed no acute intracranial process, chronic involutional and white matter changes. CTA head and neck with contrast 10/19/23 showed no evidence of significant stenosis or occlusion of carotid or vertebral arteries in the neck, no evidence of large vessel occlusion and lummi of Peng. TTE 10/19/2023: EF 60%, grade 1 DD, negative bubble study. Mild MR, AR,TR MRI brain showed acute lacunar infarct right cerebellum with mild chronic involutional and white matter changes. He was noted to have atrial fibrillation. A Zio patch was done on 10/24/23 to 11/07/2023: 40-2 22. 3 VT runs: fastest 6 beats long with max rate 222: Longest 6 beats run rate 132. PSVT runs-5 beats at 194 bpm: Longest 20.1 seconds long HR 112. Less than 1% SVE as well as SVE triplets. Some 1% VE, VE couplets, ventricular bigeminy and trigeminy were present. He denies chest pain, SOB, palpitations, orthopnea, PND, leg swelling, lightheadedness, syncope. He reports compliance and good tolerance on eliquis. 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 PAST MEDICAL HISTORY Diagnosis Date Atrial fibrillation (HCC) Calculus of gallbladder without cholecystitis without obstruction 11/30/2017 Gallbladder polyp 11/30/2017 Patient declines follow up. Aware of risks of not diagnosing a gall bladder malignancy Gout History of TIAs 2007 negative workup. bp etiology Hyperlipemia Hypertension Hypothyroidism (acquired) Parkinson's disease (HCC) Personal history of kidney stones 2005 Posterior vitreous detachment of left eye REM sleep behavior disorder PAST SURGICAL HISTORY Procedure Laterality Date L'SCOPE CHOLECYSTECTOMY 09/25/2022 Social History Tobacco Use Smoking status: Never Smokeless tobacco: Never Vaping Use Vaping status: Never Used Substance Use Topics Alcohol use: No Drug use: No FAMILY HISTORY Problem Relation Age of Onset Ischemic Heart Disease Mother 60 other (rheumatoid arthritis) Mother No Known Problems Father ALLERGIES No Known Allergies CURRENT MEDICATIONS: levothyroxine (SYNTHROID) 75 mcg tablet Take 1 tablet by mouth once daily. Take on empty stomach. For Thyroid. amLODIPine (NORVASC) 10 mg tablet Take 1 tablet by mouth once daily. atorvastatin (LIPITOR) 80 mg tablet Take 1 tablet by mouth once daily. lisinopril (ZESTRIL) 5 mg tablet Take 1 tablet by mouth once daily. metoprolol succinate ER (TOPROL XL) 50 mg 24 hr tablet Take 1 tablet by mouth once daily. carbidopa-levodopa (SINEMET 25-100) 25-100 mg per tablet Take 1 tablet by mouth three times a day. apixaban (ELIQUIS) 5 mg tab(s) Take 1 tablet by mouth two times a day. PHYSICAL EXAMINATION: BP 118/60 Pulse 68 Ht 180.3 cm (5' 11) Wt 85 kg (187 lb 6.3 oz) SpO2 96% BMI 26.14 kg/m? General: Appears comfortable in no apparent cardiopulmonary distress Neck: No JVD, no bruits CVS: Regular rhythm,S1, S2, No m/r/g Chest: CTAB Abd: Soft, nontender, no masses, BS present Ext: No pedal edema, pedal pulses 2+ bilaterally Neuro: No focal neurological deficits ASSESSMENT/PLAN: 1. New onset atrial fibrillation (HCC) - ICD9: 427.31, ICD10: I48.91 [id number] 5. He reports heart rates in the 50s at home. Regular rhythm on exam. - On Eliquis 5 mg p.o. bid. Denies any bleeding or falls or trauma. - On metoprolol 50 mg po daily. Tolerating well. - RTC in 6 months, sooner if medically necessary. 2. Recent cerebrovascular accident In the setting of paroxysmal afib. - As above - LDL 106 on 06/10/24. Goal <70. - Discussed addition of cholesterol lowering medications such as ezetimibe 10 mg po daily. He is declining. 3. Nonsustained VT Recommended stress testing however patient is declining. He states that he will keep us informed when he is ready to have this testing done. - He is declining repeat monitor tech - On metoprolol 4. Carotid artery stenosis Mild noted on carotid artery duplex 20-39% bilateral ICA per carotid artery duplex dated 05/31/21; and Neck CTA <30% LICA ? 30% STEFANY - He is declining repeat carotid artery duplex - Continue medical therapy. Declining addition of cholesterol lowering medications such as ezetimibe 10 mg po daily. - We discussed low cholesterol diet- avoid red meats and processed foods, focus on lean portions of white meat- chicken and turkey breast, fish, healthy nuts, fruits, vegetables. - He was counseled on gradually achieving at least 30 minutes of moderate intensity aerobic exercise 5 times per week-biking, brisk walking, hiking, swimming, rowing. Yanira Gamble MD, [facility] Allergies As of Date: 08/29/2024 (No Known Allergies) Date Reviewed: 08/29/2024 Reviewed by: Milagros Murrell MA - Fully Assessed Reason for Visit: Follow Up [171] Cmt: Follow up Hx of TIA, HLD, HTN, PAF, Bilateral carotid artery stenosis ECG 11/21/2023 ZIO 11/15/2023 ECHO 10/19/2023 No current cardiac concerns Primary Visit Diagnosis:Atrial fibrillation, unspecified type (HCC) [I48.91] Prescriptions as of 08/29/2024 - levothyroxine (SYNTHROID) 75 mcg tablet Take 1 tablet by mouth once daily. Take on empty stomach. For Thyroid. - amLODIPine (NORVASC) 10 mg tablet Take 1 tablet by mouth once daily. - atorvastatin (LIPITOR) 80 mg tablet Take 1 tablet by mouth once daily. - lisinopril (ZESTRIL) 5 mg tablet Take 1 tablet by mouth once daily. - metoprolol succinate ER (TOPROL XL) 50 mg 24 hr tablet Take 1 tablet by mouth once daily. - carbidopa-levodopa (SINEMET 25-100) 25-100 mg per tablet Take 1 tablet by mouth three times a day. - apixaban (ELIQUIS) 5 mg tab(s) Take 1 tablet by mouth two times a day. Problem List As Of Date 08/29/2024 Noted Resolved BENIGN HYPERTENSION [I10] 12/22/2006 11/05/2007 TRANSIENT CEREBRAL ISCHEMIA NOS [G45.9] 12/22/2006 Hyperlipemia [E78.5] 04/23/2007 CALCULUS OF KIDNEY [N20.0] 06/08/2007 Essential hypertension [I10] 11/05/2007 Gout with manifestations [M10.9] 10/19/2016 Calculus of gallbladder without cholecystitis w*11/30/2017 02/14/2023 Gallbladder polyp [K82.4] 11/30/2017 02/14/2023 Fatty liver [K76.0] 11/30/2017 Posterior vitreous detachment of left eye [H43.*01/02/2018 Vitreous floaters of both eyes [H43.393] 01/02/2018 Parkinson's disease without dyskinesia or fluct*08/21/2019 Anxiety [F41.9] 08/21/2019 Restless legs syndrome [G25.81] 08/21/2019 02/11/2022 REM sleep behavior disorder [G47.52] 08/21/2019 Hypothyroidism, acquired [E03.9] 05/06/2021 Bilateral carotid artery stenosis [I65.23] 05/31/2021 Thyroid nodule [E04.1] 07/22/2021 Abrasion of upper extremity [S40.819A] 11/21/2023 Diagnosed: 11/21/2023 Acute cholecystitis [K81.0] 11/21/2023 Diagnosed: 11/21/2023 Atrial fibrillation (HCC) [I48.91] 11/21/2023 Diagnosed: 11/21/2023 Epigastric pain [R10.13] 05/20/2022 Diagnosed: 11/21/2023 Gastroesophageal reflux disease [K21.9] 11/21/2023 Diagnosed: 11/21/2023 High serum creatinine [R79.89] 11/21/2023 Diagnosed: 11/21/2023 History of brain disorder [Z86.69] 11/21/2023 Diagnosed: 11/21/2023 Bladder stones [N21.0] 12/05/2023 Disposition: Return in about 3 months (around 11/29/2024) for Follow up visit. Follow-up and Disposition History for Encounter Date Provider Department Center 08/29/2024 [id number]-IUDMVTRMALINDA GAMBLEMamadou [facility] Encounter Status:Closed by YANIRA GAMBLE on 08/29/24 PROGRESS Observed: 08/29/2024 10:40 AM Status: COMPLETED Source: [facility] ID: [id number] Author: YANIRA GAMBLE MD Service: ? Author Type: Physician Type: Progress Notes Filed: 08/29/2024 12:41 Note Text: [facility] SECTION OF REGIONAL CARDIOLOGY OUTPATIENT VISIT DATE 08/29/24 OUTPATIENT VISIT TYPE ESTABLISHED PRIMARY CARE PHYSICIAN: Celso Julien [address] [place] [address] HISTORY OF PRESENT ILLNESS: Mr. Cooper is a 73 year old male, history of stroke, hypertension, Parkinson's, TIAs , presents for follow-up visit. He presented to [facility] on 10/19/2023 with blurred vision that started approximately 5:30 in the morning while watching television. Was not able to form words properly. He called 911 as he was concerned for TIA. CT brain without contrast showed no acute intracranial process, chronic involutional and white matter changes. CTA head and neck with contrast 10/19/23 showed no evidence of significant stenosis or occlusion of carotid or vertebral arteries in the neck, no evidence of large vessel occlusion and lummi of Peng. TTE 10/19/2023: EF 60%, grade 1 DD, negative bubble study. Mild MR, AR,TR MRI brain showed acute lacunar infarct right cerebellum with mild chronic involutional and white matter changes. He was noted to have atrial fibrillation. A Zio patch was done on 10/24/23 to 11/07/2023: 40-2 22. 3 VT runs: fastest 6 beats long with max rate 222: Longest 6 beats run rate 132. PSVT runs-5 beats at 194 bpm: Longest 20.1 seconds long HR 112. Less than 1% SVE as well as SVE triplets. Some 1% VE, VE couplets, ventricular bigeminy and trigeminy were present. He denies chest pain, SOB, palpitations, orthopnea, PND, leg swelling, lightheadedness, syncope. He reports compliance and good tolerance on eliquis. 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 PAST MEDICAL HISTORY Diagnosis Date Atrial fibrillation (HCC) Calculus of gallbladder without cholecystitis without obstruction 11/30/2017 Gallbladder polyp 11/30/2017 Patient declines follow up. Aware of risks of not diagnosing a gall bladder malignancy Gout History of TIAs 2006 negative workup. bp etiology Hyperlipemia Hypertension Hypothyroidism (acquired) Parkinson's disease (HCC) Personal history of kidney stones 2005 Posterior vitreous detachment of left eye REM sleep behavior disorder PAST SURGICAL HISTORY Procedure Laterality Date L'SCOPE CHOLECYSTECTOMY 09/25/2022 Social History Tobacco Use Smoking status: Never Smokeless tobacco: Never Vaping Use Vaping status: Never Used Substance Use Topics Alcohol use: No Drug use: No FAMILY HISTORY Problem Relation Age of Onset Ischemic Heart Disease Mother 60 other (rheumatoid arthritis) Mother No Known Problems Father ALLERGIES No Known Allergies CURRENT MEDICATIONS: levothyroxine (SYNTHROID) 75 mcg tablet Take 1 tablet by mouth once daily. Take on empty stomach. For Thyroid. amLODIPine (NORVASC) 10 mg tablet Take 1 tablet by mouth once daily. atorvastatin (LIPITOR) 80 mg tablet Take 1 tablet by mouth once daily. lisinopril (ZESTRIL) 5 mg tablet Take 1 tablet by mouth once daily. metoprolol succinate ER (TOPROL XL) 50 mg 24 hr tablet Take 1 tablet by mouth once daily. carbidopa-levodopa (SINEMET 25-100) 25-100 mg per tablet Take 1 tablet by mouth three times a day. apixaban (ELIQUIS) 5 mg tab(s) Take 1 tablet by mouth two times a day. PHYSICAL EXAMINATION: BP 118/60 Pulse 68 Ht 180.3 cm (5' 11) Wt 85 kg (187 lb 6.3 oz) SpO2 96% BMI 26.14 kg/m? General: Appears comfortable in no apparent cardiopulmonary distress Neck: No JVD, no bruits CVS: Regular rhythm,S1, S2, No m/r/g Chest: CTAB Abd: Soft, nontender, no masses, BS present Ext: No pedal edema, pedal pulses 2+ bilaterally Neuro: No focal neurological deficits ASSESSMENT/PLAN: 1. New onset atrial fibrillation (HCC) - ICD9: 427.31, ICD10: I48.91 [id number] 5. He reports heart rates in the 50s at home. Regular rhythm on exam. - On Eliquis 5 mg p.o. bid. Denies any bleeding or falls or trauma. - On metoprolol 50 mg po daily. Tolerating well. - RTC in 6 months, sooner if medically necessary. 2. Recent cerebrovascular accident In the setting of paroxysmal afib. - As above - LDL 106 on 06/10/24. Goal <70. - Discussed addition of cholesterol lowering medications such as ezetimibe 10 mg po daily. He is declining. 3. Nonsustained VT Recommended stress testing however patient is declining. He states that he will keep us informed when he is ready to have this testing done. - He is declining repeat monitor tech - On metoprolol 4. Carotid artery stenosis Mild noted on carotid artery duplex 20-39% bilateral ICA per carotid artery duplex dated 05/31/21; and Neck CTA <30% LICA ? 30% STEFANY - He is declining repeat carotid artery duplex - Continue medical therapy. Declining addition of cholesterol lowering medications such as ezetimibe 10 mg po daily. - We discussed low cholesterol diet- avoid red meats and processed foods, focus on lean portions of white meat- chicken and turkey breast, fish, healthy nuts, fruits, vegetables. - He was counseled on gradually achieving at least 30 minutes of moderate intensity aerobic exercise 5 times per week-biking, brisk walking, hiking, swimming, rowing. Yanira Gamble MD, [facility] Observed: 08/22/2024 12:00 AM Status: COMPLETED Source: [facility] Telephone ([facility]) TRACI COOPER JR. ([id number]) 1950 M Date Time Provider Department 08/22/24 ANGELICA MARTINES [facility] During your visit today, we recorded the following information about you: Malgorzata King MA 08/22/2024 5:30 PM Signed Fax received from [facility] Patient Check [employer]. His assistance will on 10/15/24. Form in mailbox. Malgorzata King MA August 22, 2024 5:30 PM Bailee Montes, SPEECH PATHOLOGY TEACHER 08/26/2024 1:11 PM Signed Patient received Eliquis through [facility] this year. will work on reaching out to patient to see if interested in reapplying for assistance for next year. Bailee Montes, SPEECH PATHOLOGY TEACHER 08/27/2024 10:21 AM Signed Sw left patient message to return call to discuss prescription assistance for Eliquis for next year. Mamadou Charles RN 08/27/2024 10:43 AM Signed Pt returned call and transferred to line. Bailee Montes, SPEECH PATHOLOGY TEACHER 08/27/2024 4:22 PM Signed Patient set up appt with for Monday, 09/02 @noon to come in and see Sw to work on [employer] PAP forms for Eliquis for next year assistance. Bailee Montes, SPEECH PATHOLOGY TEACHER 08/27/2024 4:35 PM Signed Sw called patient back as Sw forgot about 3% spend out on prescriptions needed form [facility]. Patient is going to keep track of cost at [facility] when new year starts over. Patient will let this Sw know when he feels like he has met spend out cost on prescriptions. Sw cancelled patient appt with for 09/02. Allergies As of Date: 08/22/2024 (No Known Allergies) Date Reviewed: 06/10/2024 Reviewed by: Daniella Vang APRN.LOOSELEAF BINDER COVERER - Fully Assessed Reason for Visit: Patient Assistance [0966] Prescriptions as of 08/27/2024 - levothyroxine (SYNTHROID) 75 mcg tablet Take 1 tablet by mouth once daily. Take on empty stomach. For Thyroid. - amLODIPine (NORVASC) 10 mg tablet Take 1 tablet by mouth once daily. - atorvastatin (LIPITOR) 80 mg tablet Take 1 tablet by mouth once daily. - lisinopril (ZESTRIL) 5 mg tablet Take 1 tablet by mouth once daily. - metoprolol succinate ER (TOPROL XL) 50 mg 24 hr tablet Take 1 tablet by mouth once daily. - carbidopa-levodopa (SINEMET 25-100) 25-100 mg per tablet Take 1 tablet by mouth three times a day. - apixaban (ELIQUIS) 5 mg tab(s) Take 1 tablet by mouth two times a day. Problem List As Of Date 08/22/2024 Noted Resolved BENIGN HYPERTENSION [I10] 12/22/2006 11/05/2007 TRANSIENT CEREBRAL ISCHEMIA NOS [G45.9] 12/22/2006 Hyperlipemia [E78.5] 04/23/2007 CALCULUS OF KIDNEY [N20.0] 06/08/2007 Essential hypertension [I10] 11/05/2007 Gout with manifestations [M10.9] 10/19/2016 Calculus of gallbladder without cholecystitis w*11/30/2017 02/14/2023 Gallbladder polyp [K82.4] 11/30/2017 02/14/2023 Fatty liver [K76.0] 11/30/2017 Posterior vitreous detachment of left eye [H43.*01/02/2018 Vitreous floaters of both eyes [H43.393] 01/02/2018 Parkinson's disease without dyskinesia or fluct*08/21/2019 Anxiety [F41.9] 08/21/2019 Restless legs syndrome [G25.81] 08/21/2019 02/11/2022 REM sleep behavior disorder [G47.52] 08/21/2019 Hypothyroidism, acquired [E03.9] 05/06/2021 Bilateral carotid artery stenosis [I65.23] 05/31/2021 Thyroid nodule [E04.1] 07/22/2021 Abrasion of upper extremity [S40.819A] 11/21/2023 Diagnosed: 11/21/2023 Acute cholecystitis [K81.0] 11/21/2023 Diagnosed: 11/21/2023 Atrial fibrillation (HCC) [I48.91] 11/21/2023 Diagnosed: 11/21/2023 Epigastric pain [R10.13] 05/20/2022 Diagnosed: 11/21/2023 Gastroesophageal reflux disease [K21.9] 11/21/2023 Diagnosed: 11/21/2023 High serum creatinine [R79.89] 11/21/2023 Diagnosed: 11/21/2023 History of brain disorder [Z86.69] 11/21/2023 Diagnosed: 11/21/2023 Bladder stones [N21.0] 12/05/2023 Encounter Status:Closed by MALGORZATA KING on 08/22/24 ALLERGIES DATE TYPE / CODE NAME / CODE REACTION SEVERITY SOURCE 06/09/2025 DRUG INGREDI/333674 003(SNOMED CT) OLANZAPINE CONTRAINDICA [facility] 12/09/2024 DRUG INGREDI/453292 003(SNOMED CT) ARIPIPRAZOLE CONTRAINDICA [facility] 12/09/2024 DRUG INGREDI/338535 003(SNOMED CT) PROCHLORPERAZINE [facility]INDICA [facility] 12/09/2024 DRUG INGREDI/736386 003(SNOMED CT) HALOPERIDOL CONTRAINDICA [facility] 12/09/2024 DRUG INGREDI/892428 003(SNOMED CT) PROMETHAZINE CONTRAINDICA [facility] 12/09/2024 DRUG INGREDI/357824 003(SNOMED CT) METOCLOPRAMIDE CONTRAINDICA [facility] Drug Class/72592172 3(SNOMED CT) NO KNOWN ALLERGIES [facility] ENCOUNTERS ADMIT/DISCHARGE ACCOUNT NUMBER ADMITTING ENCOUNTER CLASS LOC ATION SOURCE 07/15/2025/ 5 [id number] [facility] 5 [id number] [facility] 06/18/2025/ 5 [id number] [facility]WOF[facility] 06/09/2025/ 5 [id number] [facility]NMDN [facility] 02/26/2025/ 5 [id number] [facility]MMCA [facility] 02/19/2025/ 5 [id number] [facility]WOUC [facility] 01/13/2025/ 5 [id number] [facility]10[facility]/ 5 [id number] [facility]WOLB [facility] 12/10/2024/ 5 [id number] [facility] 12/09/2024/ 5 [id number] [facility]NMDN [facility] 09/30/2024/ 4 [id number] [facility]WOF[facility] 09/23/2024/ 4 [id number] [facility]WOLB [facility] 08/29/2024/ 4 [id number] [facility] PAYERS ENCOUNTER GUARANTOR PAYER SUBSCRIBER SOURCE 07/15/2025 Primary Insuranc e:MEDICARE A AND BPolicy Number: [id number] Date:5293-88-92Tkyi Name:Tian COOPER JR.: [id number] [place] [address] [facility] 07/15/2025 Secondary Insura nce:MMO MEDICARE SUPPLEMENTPolicy Number: [id number] Date:2740-31-35Iyeg Name:Saravanan COOPER JR.: [id number] [place] [address] [facility] 06/30/2025 Primary Insuranc e:MEDICARE A AND BPolicy Number: [id number] Date:1574-03-49Vnhw Name:Tian COOPER JR.: [id number] [place] [address] [facility] 06/30/2025 Secondary Insura nce:MMO MEDICARE SUPPLEMENTPolicy Number: [id number] Date:6391-65-52Prgo Name:Saravanan COOPER JR.: [id number] [place] [address] [facility] 06/18/2025 Primary Insuranc e:MEDICARE A AND BPolicy Number: [id number] Date:4709-48-36Uiip Name:Tian COOPER JR.: [id number] [place] [address] [facility] 06/18/2025 Secondary Insura nce:MMO MEDICARE SUPPLEMENTPolicy Number: [id number] Date:2077-45-39Bmda Name:Saravanan COOPER JR.: [id number] [place], [place] [address] [place] [address] 06/09/2025 Primary Insuranc e:MEDICARE A AND BPolicy Number: [id number] Date:6979-71-92Xdzc Name:Tian COOPER JR.: [id number] [place], [place] [address] [place] [address] 06/09/2025 Secondary Insura nce:MMO MEDICARE SUPPLEMENTPolicy Number: [id number] Date:5268-99-02Rivl Name:Saravanan COOPER JR.: [id number] [place], [place] [address] [place] [address] 02/26/2025 Primary Insuranc e:MEDICARE A AND BPolicy Number: [id number] Date:2023-30-82Atri Name:Tian COOPER JR.: [id number] [place], [place] [address] [place] [address] 02/26/2025 Secondary Insura nce:MMO MEDICARE SUPPLEMENTPolicy Number: [id number] Date:7668-86-86Rsol Name:Saravanan COOPER JR.: [id number] [place], [place] [address] [place] [address] 02/19/2025 Primary Insuranc e:MEDICARE A AND BPolicy Number: [id number] Date:9657-22-05Tuac Name:Tian Pandya KENNETH BRAN: [id number] [place] [address] [facility] 02/19/2025 Secondary Insura nce:MMO MEDICARE SUPPLEMENTPolicy Number: [id number] Date:2278-11-84Drvw Name:Saravanan AVILES Mumtaz KENNETH BRAN: [id number] [place], [place] [address] [place] [address] 01/13/2025 Primary Insuranc e:MEDICARE A AND BPolicy Number: [id number] Date:9127-35-45Nxss Name:Tian TRACI Mumtaz KENNETH BRAN: [id number] [place], [place] [address] [place] [address] 01/13/2025 Secondary [facility]ura [facility]ce[facility] SUPPLEMENTPolicy Number: [id number] Date:7671-79-67Kqgb Name:Saravanan COOPER JR.: [id number] [place], [place] [address] [place] [address] 12/10/2024 Primary Insuranc e:MEDICARE A AND BPolicy Number: [id number] Date:3762-26-61Lqfv Name:Tian AVILES Mumtaz KENNETH BRAN: [id number] [place] [address] [facility] 12/10/2024 Secondary Insura nce:[facility] [place] [place] SUPPLEMENTPolicy Number: [id number] Date:7832-96-37Znmy Name:Saravanan COOPER JR.: [id number] [place], [place] [address] [place] [address] 12/10/2024 Primary Insuranc e:MEDICARE A AND BPolicy Number: [id number] Date:0465-37-16Ovag Name:Tian COOPER JR.: [id number] [place], [place] [address] [place] [address] 12/10/2024 Secondary Insura nce:MMO MEDICARE SUPPLEMENTPolicy Number: [id number] Date:1930-23-88Roih Name:Saravanan COOPER JR.: [id number] [place] [address] [facility] 12/09/2024 Primary Insuranc e:MEDICARE A AND BPolicy Number: [id number] Date:3367-12-72Sbtg Name:Tian COOPER JR.: [id number] [place] [address] [facility] 12/09/2024 Secondary Insura nce:MM MEDICARE SUPPLEMENTPolicy Number: [id number] Date:2367-14-19Qsoq Name:Saravanan COOPER JR.: [id number] [place], [place] [address] [place] [address] 09/30/2024 Primary Insuranc e:MEDICARE A AND BPolicy Number: [id number] Date:4026-73-93Msyj Name:Tian COOPER JR.: [id number] [place], [place] [address] [place] [address] 09/30/2024 Secondary Insura nce:MM MEDICARE SUPPLEMENTPolicy Number: [id number] Date:2265-97-69Lpuv Name:Saravanan COOPER JR.: [id number] [place], [place] [address] [place] [address] 09/23/2024 Primary Insuranc e:MEDICARE A AND BPolicy Number: [id number] Date:1540-04-68Dqrt Name:Tian COOPER JR.: [id number] [place], [place] [address] [place] [address] 09/23/2024 Secondary Insura nce:MMO MEDICARE SUPPLEMENTPolicy Number: [id number] Date:9150-78-77Xjph Name:Saravanan COOPER JR.: [id number] [place] [address] [facility] 08/29/2024 Primary Insuranc e:MEDICARE A AND BPolicy Number: [id number] Date:4224-93-53Ylyn Name:Tian COOPER JR.: [id number] [place] [address] [facility] 08/29/2024 Secondary Insura nce:MMO MEDICARE SUPPLEMENTPolicy Number: [id number] Date:6197-57-25Imys Name:Saravanan COOPER JR.: [id number] [place] [address] [facility]
[2025-07-15 12:44] VITALS: BP 135/91; PULSE 87; RESP 18; TEMP 36.4; O2SAT 98; BMI 27.9
--- NOTE | 2025-07-15 14:19 | EX.ED.DYSGE1 ---
HPI History of Present Illness Chief Complaint: Nosebleed Narrative Narrative: 75-year-old male past medical history of Parkinson's presents with epistaxis. It is mainly from his left nares. It started this morning at around 1130, approximately 3 hours ago. It stopped on its own. He relates history that about a week ago, he had cauterization done by otolaryngology for nosebleed and was doing well. He had stopped his Eliquis but restarted it. Went to urgent care today. They sent him in with concern for TIA versus confusion as they noticed that he had issues on the wrong feet. Patient states that he does this on occasion. Once he realized it he changed them immediately. He denies any headache, no fevers or chills, no nausea or vomiting, no other symptoms. No difficulty breathing. [facility] Medical History Loss of hearing Wears glasses Cancer Gout Thyroid disease Bladder disease High cholesterol Shortness of breath on exertion Former smoker History of echocardiogram Cardiology follow-up encounter History of atrial fibrillation HTN (hypertension) Hypothyroid Parkinson disease Home Medications ?Medication ?Instructions ?Recorded ?Last Taken ?Type amlodipine 10 mg tablet 10 tab PO DAILY blood pressure 04/19/22 10/19/23 History carbidopa 25 mg-levodopa 100 mg 1 tab PO TID parkinsons 04/19/22 10/19/23 History tablet levothyroxine 50 mcg tablet 50 mcg PO DAILY thyroid 04/19/22 10/19/23 History triamterene 75 1 tab PO DAILY blood pressure 04/19/22 Unknown History mg-hydrochlorothiazide 50 mg tablet allopurinol 100 mg tablet 100 mg PO DAILYCM 60 days #60 tabs 10/21/23 Unknown Rx lisinopril 5 mg tablet 5 mg PO DAILY 60 days #60 tabs 10/21/23 Unknown Rx apixaban 5 mg tablet (Eliquis) 2.5 mg (1/2 x 5 mg) PO BID 60 days 02/25/24 03/16/24 Rx #120 tabs ciprofloxacin HCl 500 mg tablet 500 mg PO BID #10 tabs 03/20/24 Unknown Rx finasteride 5 mg tablet (Proscar) 5 mg PO DAILY #90 tabs 03/20/24 Unknown Rx tamsulosin 0.4 mg capsule (Flomax) 0.4 mg PO DAILY #90 caps 03/20/24 Unknown Rx polyethylene glycol 3350 17 17 g PO DAILY #119 grams 06/11/25 Unknown Rx gram/dose oral powder (Miralax) sennosides 8.6 mg-docusate sodium 1 tab-cap PO DAILY 14 days #14 tabs 06/11/25 Unknown Rx 50 mg tablet (Senna with Docusate Sodium) Allergy/AdvReac Type Severity Reaction Status Date / Time No Known Allergies Allergy Verified 07/15/25 12:43 Surgical History Status post laparoscopic cholecystectomy Social History Smoking Status: Former smoker ROS ROS ED ROS Narrative Review of systems positive for epistaxis from left nares, resolved. Reported confusion with history of Parkinson's. Denies headache, neck pain, nausea or vomiting, no other bleeding diathesis. EXAM Physical Exam Narrative Exam Narrative: Afebrile. Vital signs noted. Nontoxic-appearing. Cardiovascular examination regular rate and rhythm. Lungs are clear to auscultation bilaterally. Abdomen is soft and nontender. Neurological examination shows tremor of bilateral upper extremities consistent with Parkinson's. He is able to ambulate to the cot, and transfer from chair to standing and standing to the cot. He does this independently. Dried blood on left nares, no posterior pharynx hemorrhage. No other noted bleeding diathesis. Neurological examination shows him to be awake, alert, oriented to person, place, and time as well as current events. Const Vital Signs: 07/15/25 12:44 07/15/25 14:30 Temperature 97.5 F L 98.1 F Temperature Source Temporal Pulse Rate 87 71 Respiratory Rate 18 16 Blood Pressure 135/91 H 112/59 L Blood Pressure Mean 105 76 Pulse Ox 98 100 Oxygen Delivery Method Room Air MDM MDM MDM Narrative Medical decision making narrative: Medical screening exam is negative for any acute process. Regarding the dried blood in his nares. I offered to perform nasal packing, but patient declines and states that his nose to stop bleeding. I considered laboratory work to check for anemia, but through shared decision making patient declined. I also offered to do lab work to look for dehydration. However, the patient is awake, alert, and oriented. I do not feel stroke team is indicated because there is no debilitating deficit and his NIH stroke scale is essentially 0. Although he has history of acute CVA, he is on Eliquis again and he is not a candidate for any TNK. Patient does not want CT of the brain performed. I have low suspicion for an intracranial hemorrhage as he does not have any headache. As his medical screening exam is negative I feel he can be discharged to follow-up. Return instructions to the emergency department were reviewed. Disposition is discharged home in stable condition. History & Record Review Discussion w/independent historian: Patient Additional record(s) reviewed:: Prior ED visit Discharge Plan Triage Chief Complaint: Nosebleed ED Provider: Murray Garces Dx/Rx/DC Orders Clinical Impression: Confusion, Epistaxis, Encounter for medical screening examination, History of Parkinson's disease Instructions: ED Confusion, ED Epistaxis (Adult), ED Screening Exam Medical Nonurgent Prescriptions: No Action amlodipine 10 mg tablet 10 tab PO DAILY Patient Comments: TAKE 1 TABLET BY MOUTH EVERY DAY levothyroxine 50 mcg tablet 50 mcg PO DAILY Patient Comments: TAKE 1 TABLET BY MOUTH ONCE DAILY. TAKE ON EMPTY STOMACH. FOR THYROID. triamterene-hydrochlorothiazid 75-50 mg tablet 1 tab PO DAILY Patient Comments: TAKE 1 TABLET BY MOUTH EVERY DAY carbidopa-levodopa 25-100 mg tablet 1 tab PO TID Patient Comments: TAKE 1 TABLET BY MOUTH THREE TIMES A DAY allopurinol 100 mg Tablet 100 mg PO DAILYCM 60 Days Qty: 60 0RF lisinopril 5 mg Tablet 5 mg PO DAILY 60 Days Qty: 60 0RF Eliquis 5 mg Tablet 2.5 mg PO BID 60 Days Qty: 120 0RF polyethylene glycol 3350 [Miralax] 17 gram/dose powder 17 g PO DAILY Qty: 119 0RF sennosides-docusate sodium [Senna with Docusate Sodium] 8.6-50 mg tablet 1 tab-cap PO DAILY 14 Days Qty: 14 0RF tamsulosin [Flomax] 0.4 mg capsule 0.4 mg PO DAILY Qty: 90 3RF finasteride [Proscar] 5 mg tablet 5 mg PO DAILY Qty: 90 3RF ciprofloxacin HCl 500 mg tablet 500 mg PO BID Qty: 10 0RF Primary Care Provider: Celso Julien Referrals: Kirill Hameed MD [Med Staff - Active Staff, Ear Nose Throat (ENT)] - 3-5 Days if not improving Celso Julien MD [Primary Care Provider, Medical] - 3-5 Days if not improving Activity Restrictions/Additional Instructions: Return with increased bleeding from your nose, new or worsening symptoms Print Language: Yi Disposition Disposition: Home, Self Care Discharge Date/Time: 07/15/25 14:30
[2025-07-15 14:30] VITALS: BP 112/59; PULSE 71; RESP 16; TEMP 36.7; O2SAT 100
== END 2025-07-15 14:30 | disposition home or self-care (01) ==
PROVIDERS: Emergency Provider Emergency Medicine; PCP Family Medicine; Visit Provider Emergency Medicine
DX: R41.0 Disorientation, unspecified (principal); G20.A1 Parkinson's disease without dyskinesia, without mention of fluctuations; I48.91 Unspecified atrial fibrillation; R04.0 Epistaxis; I10 Essential (primary) hypertension; E78.00 Pure hypercholesterolemia, unspecified; Z87.891 Personal history of nicotine dependence; Z79.01 Long term (current) use of anticoagulants
CPT/HCPCS: 99282

== ENCOUNTER 2025-08-14 11:20 | Inpatient (IN) | payer MEDICARE, OTHER, SELFPAY ==
[2025-08-14] VITALS (7 sets, daily range): BP systolic 117–143; BP diastolic 78–96; PULSE 75–92; RESP 12–25; TEMP 36.8–37.7; O2SAT 96–99; BMI 28.7; BMI 27.9
--- NOTE | 2025-08-14 11:35 | CT_ITS ---
PROCEDURE: CT/Brain/Head without Contrast
[2025-08-14] MEDS: 0.9% Normal Saline (1000mL) 1,000 ML 999 ML IV (11:42)
--- NOTE | 2025-08-14 11:42 | EX.ED.DYSGE1 ---
HPI History of Present Illness Chief Complaint: Weakness Narrative Narrative: Patient is a 75-year-old male with past medical history of Parkinson disease, hypothyroidism, bladder cancer, history atrial fibrillation on Eliquis states that he has been taking his medications not missing doses who presents to the emergency department chief complaint of generalized weakness and increased difficulty walking. According to the sister at bedside she states that yesterday he texted family and notes that he felt that he was too weak to get up. They noted that they got the text around 2:00 they got a walker and took it over to him as a figure that he would need this. They note that he was having shuffling with his feet which is not normal for him. He had again weakness today therefore they called EMS to have him brought here to be further evaluated. [facility] Medical History Loss of hearing Wears glasses Cancer Gout Thyroid disease Bladder disease High cholesterol Shortness of breath on exertion Former smoker History of echocardiogram Cardiology follow-up encounter History of atrial fibrillation HTN (hypertension) Hypothyroid Parkinson disease Home Medications ?Medication ?Instructions ?Recorded ?Last Taken ?Type amlodipine 10 mg tablet 10 tab PO DAILY blood pressure 04/19/22 08/13/25 History carbidopa 25 mg-levodopa 100 mg 1 tab PO TID parkinsons 04/19/22 08/14/25 History tablet allopurinol 100 mg tablet 100 mg PO DAILYCM 60 days #60 tabs 10/21/23 Unknown Rx lisinopril 5 mg tablet 5 mg PO DAILY blood pressure 60 10/21/23 Unknown Rx days #60 tabs polyethylene glycol 3350 17 17 g PO DAILY constipation #119 06/11/25 08/11/25 Rx gram/dose oral powder (Miralax) grams apixaban 5 mg tablet (Eliquis) 5 mg PO DAILY heart 08/14/25 08/14/25 History levothyroxine 100 mcg tablet 100 mcg PO DAILY disorder of 08/14/25 08/13/25 History thyroid gland metoprolol succinate 50 mg 50 mg PO DAILY heart 08/14/25 08/14/25 History tablet,extended release 24 hr Allergy/AdvReac Type Severity Reaction Status Date / Time No Known Allergies Allergy Verified 07/15/25 12:43 Surgical History Status post laparoscopic cholecystectomy Social History Smoking Status: Former smoker ROS ROS ED ROS Narrative Constitutional: Denies any fevers, chills, headaches Eyes: Denies change in vision double vision blurry vision Cardiovascular: Denies chest pain Respiratory: Denies shortness of breath Abdomen: Denies abdominal pain nausea vomit diarrhea : Denies urinary symptoms Neurological: Denies any numbness,, tingling Musculoskeletal: Complains of generalized weakness denies back pain Skin: Denies any rashes or lesions EXAM Physical Exam Narrative Exam Narrative: General: Patient was lying in bed resting comfortably did not appear to be in acute distress Head: Atraumatic, normocephalic Eyes: PERRL bilaterally, EOMI bilaterally, no conjunctival injection noted Neck: Soft, supple, trachea midline Cardiovascular: Regular rate and rhythm Respiratory: Clear to auscultation bilaterally Abdomen: Soft, nondistended, nontender to palpation Extremities: +4/5 strength at the bilateral lower extremities Neurological: Patient following commands that he was at [facility] the year is 2024 NIH of 0 GCS 15 Skin: Warm, dry, tact no rashes or lesions noted Const Vital Signs: 08/14/25 11:28 08/14/25 11:32 08/14/25 13:21 Temperature 98.2 F Temperature Source Oral Pulse Rate 88 75 Respiratory Rate 18 25 H Respiratory Effort Normal Non-Labored Respiratory Pattern Normal Blood Pressure 117/85 H 135/96 H Blood Pressure Mean 95 109 Pulse Ox 99 96 Oxygen Delivery Method Room Air 08/14/25 14:54 Temperature 98.2 F Temperature Source Pulse Rate 85 Respiratory Rate 12 Respiratory Effort Respiratory Pattern Blood Pressure 127/89 H Blood Pressure Mean 101 Pulse Ox 99 Oxygen Delivery Method MDM MDM MDM Narrative Medical decision making narrative: Patient is a 75-year-old male who presents to the emergency department the chief complaint of generalized weakness. On the differential diagnosis includes but not limited to ACS, pneumonia, electrolyte abnormality, worsening Parkinson's. Once workup is obtained reviewed he will be reevaluated. Patient is a CBC reviewed and showed a leukocytosis of 13,000, he was 13.4, plate count 237. Patient INR was 1.7, PT of 20.2. Patient sodium normal 137, potassium 3.8, creatinine was 1.12. Patient AST and ALT were 21 and less than 5 respectively. Patient urinalysis reviewed and showed no evidence of infection. Patient CT head brain out contrast reviewed showed no acute intracranial normalities. Attempted to ambulate the patient here in the emergency department and he was unable to do so. Will discuss case with hospitalist for admission for placement. Discussed case with hospitalist Dr. Carrillo who accept the patient for admission. Patient notified as well as Gay members bedside they are agreeable this plan all question concerns answered. Lab Data Labs: Laboratory Results - last 24 hr 08/14/25 08/14/25 11:06 12:20 WBC 13.7 H RBC 4.86 Hgb 13.4 Hct 39.8 L MCV 81.9 MCH 27.6 MCHC 33.7 RDW Std Deviation 39.6 RDW Coeff of Navnete 13.2 Plt Count 237 MPV 10.4 Immature Gran % (Auto) 0.600 Neut % (Auto) 77.5 H Lymph % (Auto) 7.9 L [place] % (Auto) 13.6 H Eos % (Auto) 0.0 Baso % (Auto) 0.4 Absolute Neuts (auto) 10.6 H Absolute Lymphs (auto) 1.08 Nucleated RBC % 0 Differential Comment COMMENT PT 20.2 H INR 1.7 APTT 37.6 H Sodium 137 Potassium 3.8 Chloride 101 Carbon Dioxide 26.1 Anion Gap 10 BUN 24 H Creatinine 1.12 Estim Creat Clear Calc 62.59 Est GFR (MDRD) Non-Af 68 BUN/Creatinine Ratio 21.6 H Glucose 101 H Calcium 8.7 Total Bilirubin 1.36 H AST 21 ALT < 5 Alkaline Phosphatase 80 Total Protein 6.8 Albumin 3.8 Globulin 3.0 Albumin/Globulin Ratio 1.2 Urine Color Yellow Urine Clarity Sl. Cloudy Urine pH 6.0 Ur Specific [place] 1.015 Urine Protein 30 H Urine Glucose (UA) Normal Urine Ketones Negative Urine Occult Blood 50 H Urine Nitrite Negative Urine Bilirubin Negative Urine Urobilinogen Normal Ur Leukocyte Esterase 100 H Urine RBC 0-5 SEEN Urine WBC 5-10 SEEN Ur Squamous Epith Cells 0 SEEN Urine Bacteria 0 SEEN Urine Mucus 1+ Radiography Diagnostic Testing: Clinical Impression(s) from Imaging Studies Brain CT 08/14/25 11:35 IMPRESSION: No acute intracranial abnormalities. Reading Location: [facility] Discharge Plan Dx/Rx/DC Orders Clinical Impression: Generalized weakness, History of Parkinson's disease, HTN (hypertension) Disposition Disposition: Acute Care Hospital [facility]
[2025-08-14 11:55] LABS: Hematocrit 39.8 % (40-54); Hemoglobin 13.4 g/dL (13.0-16.5); Immature Granulocytes Count 0.080 X10^3/uL (0.0-0.0); Mean Corp Hgb Conc 33.7 g/dL (32-36); Mean Corpuscular Volume 81.9 fL (80-94); Mean Platelet Vol. 10.4 fl (6.2-12.0); NRBC Flagged by Analyzer 0 % (0-5); POSITIVE DIFFERENTIAL YES; Platelet Count 237 K/mm3 (150-450); RBC Distribution Width CV 13.2 % (11.6-14.6); RBC Distribution Width SD 39.6 fl (35.1-43.9); Red Blood Count 4.86 M/mm3 (4.6-6.2); White Blood Count 13.7 K/mm3 (4.4-11.0)
[2025-08-14 11:57] LABS: Differential Indicated SCAN CRITERIA MET
[2025-08-14 12:08] LABS: Partial Thromboplast Time 37.6 Seconds (24.1-36.2)
[2025-08-14 12:22] LABS: AST(SGOT) 21 U/L (<=37); Alanine Aminotransfer ALT/SGPT < 5 U/L (<=46); Albumin, Serum 3.8 g/dL (3.4-4.8); Alkaline Phosphatase 80 U/L (40-129); Anion Gap 10 (5-15); BUN 24 mg/dL (4-19); BUN/Creat Ratio 21.6 RATIO (10-20); Calcium,Total 8.7 mg/dL (7.6-11.0); Carbon Dioxide 26.1 mmol/L (21.0-32.0); Chloride 101 mmol/L (98-108); Estimated Creatinine Clearance 62.59 ml/min (50-250); Globulin 3.0 g/dL (2.2-4.2); Glucose 101 mg/dL (70-99); Potassium 3.8 mmol/L (3.3-5.1)
[2025-08-14 12:23] LABS: Squamous Epithelial Cells - UA 0 SEEN /hpf (0-5)
[2025-08-14 12:28] LABS: Prothrombin Time (Protime)PT. 20.2 SECONDS (11.7-14.9)
[2025-08-14 12:32] LABS: Color, Urine Yellow (Yellow); Glucose, Dipstick Normal (Normal); Ketone-Dipstick Negative (Negative); Leukocyte Esterase-Dipstick 100 /ul (Negative); Nitrite-Dipstick Negative (Negative); Occult Blood-Urine 50 /ul (Negative); Protein-Dipstick 30 mg/dl (Negative); Specific Gravity, Urine 1.015 (1.002-1.030); Urine Bilirubin Dipstick Negative (Negative)
[2025-08-14 12:46] LABS: Mucous, Urine 1+ /hpf (<or=2+); Red Blood Cells-Urine 0-5 SEEN /hpf (0-5)
--- NOTE | 2025-08-14 13:35 | CM.ED ---
Social work Reason for referral: patient's family request Referral source: Registration Registration informed SW that patient's sister was asking to speak with SW whenever SW had time. SW met with patient's sister and [id number] in hallway while patient used the restroom. Patient's sister stated being stressed due to just moving back into the area and not realizing how bad patient's physical condition had become. Patient's family members asked about process on getting patient into a facility short-term for rehab and patient's family were educated by SW on the process and assistance that the acute RNCM/SW team could help provide if patient were to be admitted. Patient's family expressed relief knowing they would not have to walk this path alone. Patient still undergoing testing at this time, so SW to provide support as needed once known if patient will be admitted to acute or not. SW to update acute team via email if patient admitted. Dilia Siddiqi, CONTENT ANALYST, GROWTH HACKER
--- NOTE | 2025-08-14 14:59 | PCM.HP.STD ---
HPI - General General Date of Admission: 08/14/25 Date of Service: 08/14/25 Chief Complaint: Worsening weakness and difficulty with ambulation HPI Narrative TRACI COOPER, is a 75 M who presented to [facility] ED on 08/14/2025 with worsening weakness and difficulty with ambulation. Medical history significant for Parkinson's disease, prior CVA, A-fib on Eliquis, hypertension and hypothyroidism. Patient lives at home alone. Uses a walker with ambulation at baseline. Has family that lives close by. Patient reports worsening generalized weakness in his legs and difficulty with ambulation over the past 2 to 3 days. Denies any infectious symptoms over that timeframe. Reports eating and drinking about his normal. No changes to any medications recently. In the ED he was normotensive and hemodynamically stable on room air at rest. Labs notable for WBC count 13, T. bili 1.3, otherwise benign. CT brain was unremarkable. Given his worsening debility, hospitalist was contacted for admission. I saw the patient at bedside in the ED, sister was present. Patient was mildly fatigued appearing but otherwise sitting back comfortably in bed and in no acute distress. He did have a flat affect and pill-rolling tremor noted. On exam he was able to lift both legs off the bed and hold them for about 8 to 10 seconds. His left leg was a bit weaker than his right. Denies any pain or muscle aches in his upper legs. No other acute concerns currently. Will be admitted for further management. [facility] Medical History Loss of hearing Wears glasses Cancer Gout Thyroid disease Bladder disease High cholesterol Shortness of breath on exertion Former smoker History of echocardiogram Cardiology follow-up encounter History of atrial fibrillation HTN (hypertension) Hypothyroid Parkinson disease Home Medications ?Medication ?Instructions ?Recorded ?Last Taken ?Type amlodipine 10 mg tablet 10 tab PO DAILY blood pressure 04/19/22 08/13/25 History carbidopa 25 mg-levodopa 100 mg 1 tab PO TID parkinsons 04/19/22 08/14/25 History tablet allopurinol 100 mg tablet 100 mg PO DAILYCM 60 days #60 tabs 10/21/23 Unknown Rx lisinopril 5 mg tablet 5 mg PO DAILY blood pressure 60 10/21/23 Unknown Rx days #60 tabs polyethylene glycol 3350 17 17 g PO DAILY constipation #119 06/11/25 08/11/25 Rx gram/dose oral powder (Miralax) grams apixaban 5 mg tablet (Eliquis) 5 mg PO DAILY heart 08/14/25 08/14/25 History levothyroxine 100 mcg tablet 100 mcg PO DAILY disorder of 08/14/25 08/13/25 History thyroid gland metoprolol succinate 50 mg 50 mg PO DAILY heart 08/14/25 08/14/25 History tablet,extended release 24 hr Allergy/AdvReac Type Severity Reaction Status Date / Time No Known Allergies Allergy Verified 07/15/25 12:43 Surgical History Status post laparoscopic cholecystectomy Social History Smoking Status: Former smoker ROS Constitutional Constitutional: Reports fatigue and weakness; Denies chills or fever(s) Eyes Eyes: Denies change in vision Cardiovascular Cardiovascular: Denies chest pain Respiratory/Chest Respiratory/Chest: Denies shortness of breath at rest Gastrointestinal Gastrointestinal: Denies abdominal pain, constipation, diarrhea, nausea or vomiting Genitourinary Genitourinary: Denies dysuria Musculoskeletal Musculoskeletal: Denies arthralgias, back pain or myalgias Neurologic Neurologic: Reports tremor(s); Denies dizziness, focal weakness, headache(s), numbness or tingling Vital Signs Vital Signs Vital Signs: 08/14/25 11:28 08/14/25 11:32 08/14/25 13:21 Temperature 98.2 F Temperature Source Oral Pulse Rate 88 75 Respiratory Rate 18 25 H Respiratory Effort Normal Non-Labored Respiratory Pattern Normal Blood Pressure 117/85 H 135/96 H Blood Pressure Mean 95 109 Pulse Ox 99 96 Oxygen Delivery Method Room Air 08/14/25 14:54 Temperature 98.2 F Temperature Source Pulse Rate 85 Respiratory Rate 12 Respiratory Effort Respiratory Pattern Blood Pressure 127/89 H Blood Pressure Mean 101 Pulse Ox 99 Oxygen Delivery Method Weight Weight: 90.8 kg Body Mass Index (BMI) 28.7 Physical Exam Const alert, oriented x3, no apparent distress and average body habitus Constitutional Narrative: Elderly male, mildly fatigued appearing, flat affect noted, otherwise sitting back comfortably in bed, conversing normally, in no acute distress. General Appearance: cooperative and comfortable HEENT normocephalic, head/scalp atraumatic, hearing grossly normal bilaterally, nasal mucous membranes and turbinates normal and moist oral mucous membranes Eyes PERRL, EOMs intact bilaterally and conjunctivae normal Neck full ROM Chest inspection of chest normal Resp normal respiratory effort, normal air movement, no use of accessory muscles and clear to auscultation bilaterally Cardio regular rate, regular rhythm, no murmurs and peripheral pulses 2+ throughout GI normal to inspection, nondistended, normoactive bowel sounds, soft to palpation, non-tender and non-distended Back/Spine normal ROM Extremity normal to inspection and full ROM Skin no rashes or lesions noted Neuro CN's II-XII intact bilaterally, moves all extremities and no focal motor deficits Neuro Narrative: +4/5 strength in left lower extremity, +5/5 strength in right lower extremity. Generalized fatigue and weakness noted. Speech: speech normal Psych mental status grossly normal Results Lab / Micro Data 08/14/25 11:06 08/14/25 11:06 Labs: Laboratory Results - last 24 hr 08/14/25 11:06: WBC 13.7 H, RBC 4.86, Hgb 13.4, Hct 39.8 L, MCV 81.9, MCH 27.6, MCHC 33.7, RDW Std Deviation 39.6, RDW Coeff of Navneet 13.2, Plt Count 237, MPV 10.4, Immature Gran % (Auto) 0.600, Neut % (Auto) 77.5 H, Lymph % (Auto) 7.9 L, [place] % (Auto) 13.6 H, Eos % (Auto) 0.0, Baso % (Auto) 0.4, Absolute Neuts (auto) 10.6 H, Absolute Lymphs (auto) 1.08, Nucleated RBC % 0, Differential Comment COMMENT, PT 20.2 H, INR 1.7, APTT 37.6 H, Sodium 137, Potassium 3.8, Chloride 101, Carbon Dioxide 26.1, Anion Gap 10, BUN 24 H, Creatinine 1.12, Estim Creat Clear Calc 62.59, Est GFR (MDRD) Non-Af 68, BUN/Creatinine Ratio 21.6 H, Glucose 101 H, Calcium 8.7, Total Bilirubin 1.36 H, AST 21, ALT < 5, Alkaline Phosphatase 80, Total Protein 6.8, Albumin 3.8, Globulin 3.0, Albumin/Globulin Ratio 1.2 08/14/25 12:20: Urine Color Yellow, Urine Clarity Sl. Cloudy, Urine pH 6.0, Ur Specific [place] 1.015, Urine Protein 30 H, Urine Glucose (UA) Normal, Urine Ketones Negative, Urine Occult Blood 50 H, Urine Nitrite Negative, Urine Bilirubin Negative, Urine Urobilinogen Normal, Ur Leukocyte Esterase 100 H, Urine RBC 0-5 SEEN, Urine WBC 5-10 SEEN, Ur Squamous Epith Cells 0 SEEN, Urine Bacteria 0 SEEN, Urine Mucus 1+ Imaging Radiology Impression Brain CT 08/14/25 11:35 IMPRESSION: No acute intracranial abnormalities. Reading Location: [facility] Assessment & Plan Assessment/Plan (1) Generalized weakness: PLAN: Plan Patient is a 75-year-old male who presented to [facility] ED on 08/14/2025 with worsening weakness and difficulty with ambulation. 1. Acute on chronic debility in setting of Parkinson's disease ? Admit under observation status to [facility]. PT/OT/case management consulted. Lives at home by himself, uses a walker at baseline. More generalized weakness and difficulty with ambulation noted on admit. No clear underlying cause for this. Appreciate therapy recommendations. Continue home Sinemet. 2. Leukocytosis ? WBC count 13.7 on admit, neutrophil predominant. Patient otherwise afebrile and noninfectious appearing. UA unremarkable. Respiratory PCR panel ordered. May be secondary to mild degree of dehydration, was given 1 L of IV fluids on admit. Follow-up a.m. CBC. 3. Paroxysmal A-fib, hypertension, history of CVA ? In rate controlled A-fib and mildly hypotensive to normotensive on admit. Will continue home Eliquis and Toprol. Will continue amlodipine at reduced dose of 5 mg daily. Will hold home lisinopril for now. 4. Hypothyroidism ? TSH ordered. Continue home Synthroid. 5. History of gout ? Was previously on allopurinol but has now been off this for a few years without any recurrence of gout. DVT prophylaxis: Not indicated, on Eliquis CODE STATUS: Full code, verified Expected disposition: Likely SNF, 1 to 2 days Total clinical time spent by myself addressing the patient's medical issues, reviewing all the data, and collaborating with patient's care team: 62 minutes. Charges/Coding Visit Charges Inpatient E&M: 56137 Init Hosp L2
[2025-08-14] MEDS: APIXABAN 5 MG TABLET PO (22:06)
[2025-08-14] MEDS: MELATONIN 3 MG TABLET PO (22:09)
[2025-08-15 03:19] VITALS: BP 135/97; PULSE 88; RESP 17; TEMP 37.3; O2SAT 97
[2025-08-15 06:57] LABS: Hematocrit 43.2 % (40-54); Hemoglobin 14.8 g/dL (13.0-16.5); Mean Corp Hgb Conc 34.3 g/dL (32-36); Mean Corpuscular Volume 82.6 fL (80-94); Mean Platelet Vol. 10.0 fl (6.2-12.0); Platelet Count 239 K/mm3 (150-450); RBC Distribution Width CV 13.2 % (11.6-14.6); RBC Distribution Width SD 39.5 fl (35.1-43.9); Red Blood Count 5.23 M/mm3 (4.6-6.2); White Blood Count 13.1 K/mm3 (4.4-11.0)
[2025-08-15 07:22] LABS: Anion Gap 10 (5-15); BUN 17 mg/dL (4-19); BUN/Creat Ratio 18.4 RATIO (10-20); Calcium,Total 8.8 mg/dL (7.6-11.0); Carbon Dioxide 26.3 mmol/L (21.0-32.0); Chloride 99 mmol/L (98-108); Estimated Creatinine Clearance 72.93 ml/min (50-250); Glucose 108 mg/dL (70-99); Potassium 3.7 mmol/L (3.3-5.1)
[2025-08-15 08:22] VITALS: BP 136/74; PULSE 78; RESP 18; TEMP 37; O2SAT 96
[2025-08-15 08:37] VITALS: PULSE 78
[2025-08-15] MEDS: Polyethylene Glycol 3350 17 GM PACKET PO (08:37)
[2025-08-15] MEDS: APIXABAN 5 MG TABLET PO ×2 (08:37→21:52)
[2025-08-15] MEDS: Metoprolol(XL)Succ 50 MG Tablet PO (08:37)
--- NOTE | 2025-08-15 09:43 | CASEMGMT ---
Social Work- SW met with pt [id number] and sister to provide education on MCR vs VA coverage, MCR OBS coverage, LTC vs skilled care vs HHC. SW answered questions and provided support. Pt AUGUSTUS and sister are going to meet with the [facility] this morning and will follow up with BRAULIO. ROSALIA Perry
--- NOTE | 2025-08-15 11:41 | CASEMGMT ---
Addendum entered by Judy Posey 08/15/25 16:14: BRAULIO met with pt brother in law and sister to update on referral status. Pt sister reports that they would like to speak with hospitalist regarding pt behavior that they report is new. Pt sister reports that pt thought he saw his neighbor taking out the trash today from his room window, was talking to his cat as if he was in the room., and talked about a spinning glass in the room. Pt sister reports that she has concerns that this could be related to cancer that pt had surgery on in October, although sister reports that bloodwork in March was unremarkable. SW notified hospitalist of family request; hospitalist reports that he will call sister. BRAULIO remains available to follow. ROSALIA Perry Addendum entered by Judy Posey 08/15/25 14:10: Rehab admissions reports that they will review and offer a decision following therapy recommendations and medical work up. ROSALIA Perry Original Note: BRAULIO met with pt to discuss therapy recommendations. BRAULIO provided education on rehab unit and SNF levels of care. Pt agreeable to SW checking on rehab beds. BRAULIO completed referral to [facility]. BRAULIO remains available to follow. ROSALIA Perry
--- NOTE | 2025-08-15 14:33 | CASEMGMT ---
MACKENZIE Met with patient to complete MACKENZIE form. MACKENZIE form and its content were verbally explained and patient's questions were answered to the best of my ability.? Patient voiced understanding and signed MACKENZIE form.? Patient provided a copy of signed MACKENZIE form and original placed in patient's chart.? Patient had no further questions. Tory Zarate, Discharge Planning Asst
[2025-08-15 14:42] VITALS: BP 103/77; PULSE 98; RESP 18; TEMP 37.2; O2SAT 97
--- NOTE | 2025-08-15 15:25 | CHAPLAIN ---
Type of Pastoral Visit _x_ Initial Visit ___ Follow-up Visit ___ On-call Visit ___ General Patient Visit ___ Spiritual Assessment ___ Family Conference ___ Bereavement ___ Rapid Response ___ Code Blue ___ Other (describe below) Pastoral Care Referral From _x__ Patient ___ Family ___ Nurse ___ Physician ___ Senior Cobol Developer ___ Natural Foods Clerk ___ Other (describe below) Sacrament/Intervention _x__ Active listening ___ Anointing ___ Confucianist ___ Bereavement ___ Communion ___ Evelin exploration ___ _x__ Life review _x__ Prayer ___ Reconciliation ___ Sacrament of Sick _x__ Supportive presence ___ Wedding ___ Other (describe below) Pastoral Comments patient is welcoming but talks like he is in his home one minute and then someplace else at another time; pt wants to offer beverages to this mold repairer and speaks of items in the room that belong to you; pt acknowledges that he has Parkinson's and is needing to get stronger; pt is talkative but it is not always revelant to the questions asked; pt is expressive to say thank you for visiting me; prayer also welcomed
--- NOTE | 2025-08-15 18:22 | PCM.PN.HOSP ---
Reason for Visit Chief Complaint: Worsening weakness and difficulty with ambulation Subjective Subjective Patient was seen and examined today, he appears frail and weak. He does have a resting tremor. It is possible that the rehab unit would take the patient-it would probably be Monday before this would happen however. The rehab department requested the leukocytosis be investigated, patient does not appear to be infected or septic however, I have elected to repeat the CBC tomorrow morning Objective Data Objective Data Vital Signs: Vital Signs Temp Pulse Resp BP Pulse Ox O2 Del Method 99.0 F 98 18 103/77 97 Room Air 08/15/25 14:42 08/15/25 14:42 08/15/25 14:42 08/15/25 14:42 08/15/25 14:42 08/15/25 15:35 Oxygen Delivery Method Room Air Weight: 88.451 kg Body Mass Index (BMI) 27.9 Intake & Output: Intake and Output for Last 24 Hours 08/13/25 08/14/25 08/15/25 23:59 23:59 23:59 Intake Total 1200 / 1200 650 / 650 Output Total 600 / 600 Balance 1200 / 1200 50 / 50 Lab / Micro Data 08/15/25 06:27 08/15/25 06:27 Labs: Laboratory Results - last 24 hr 08/14/25 11:06: TSH 2.820 08/15/25 06:27: WBC 13.1 H, RBC 5.23, Hgb 14.8, Hct 43.2, MCV 82.6, MCH 28.3, MCHC 34.3, RDW Std Deviation 39.5, RDW Coeff of Navneet 13.2, Plt Count 239, MPV 10.0, Sodium 135, Potassium 3.7, Chloride 99, Carbon Dioxide 26.3, Anion Gap 10, BUN 17, Creatinine 0.95, Estim Creat Clear Calc 72.93, Est GFR (MDRD) Non-Af 83, BUN/Creatinine Ratio 18.4, Glucose 108 H, Calcium 8.8 Micro: Microbiology 08/14/25 17:15 Mucosa - Nasopharyngeal Respiratory Panel (PCR) - Final Physical Exam Const alert, oriented x3 and no apparent distress Constitutional Narrative: Patient appears frail and weak and older than his stated age General Appearance: cooperative, well kempt and well developed Orientation / Consciousness: awake, oriented to person, oriented to place and oriented to time HEENT normocephalic, head/scalp atraumatic and moist oral mucous membranes Eyes PERRL, EOMs intact bilaterally and conjunctivae normal Neck supple, no JVD and thyroid normal General: trachea midline Resp normal respiratory effort, no retractions, no use of accessory muscles and clear to auscultation bilaterally Auscultation: Negative for rales, rhonchi or wheezes Cardio S1 normal heart sound, S2 normal heart sound, no murmurs, no rub and no gallops Cardio Narrative: Heart rate and rhythm is irregular GI normal to inspection, nondistended, normoactive bowel sounds, soft to palpation, non-tender and non-distended Extremity no clubbing, cyanosis or edema Skin no rashes or lesions noted General Skin Exam: no breakdown Neuro oriented x3, CN's II-XII intact bilaterally, moves all extremities and no sensory deficits noted Neuro Narrative: Patient has a resting tremor Sensorium / Orientation: awake and alert Speech: speech normal Psych affect normal Assessment & Plan Assessment/Plan (1) Generalized weakness: PLAN: Plan 1. Acute on chronic debility secondary to Parkinson's disease and advanced age-PT and OT will continue work with the patient, he will need to go either to the rehab unit or to a chcf facility, he remains as an observation patient at this time however which means if he went to a chcf facility he would have to pay [id number]. #2 leukocytosis-again patient has no sign of infection or sepsis-CBC will be repeated tomorrow #3 chronic atrial fibs-patient is on Eliquis and metoprolol #4 essential hypertension-patient will remain on his medications, blood pressure will be monitored and medicines will be adjusted accordingly #5 hypothyroidism-patient is on Synthroid #6 chronic use of anticoagulation secondary to atrial fib-complicates care, management, recovery, and prognosis #7 Parkinson's disease-patient is on levodopa carbidopa-complicates care, management, recovery, and prognosis Total clinical time spent by myself addressing the patient's medical issues, reviewing all of the data, and collaborating with patient's care team: 35 minutes Charges/Coding Visit Charges Inpatient E&M: 11974 Subs Hosp L2
--- NOTE | 2025-08-15 18:22 | PN.HOSP_ITS ---
Reason for Visit
[2025-08-15 21:48] VITALS: BP 121/82; PULSE 95; RESP 16; TEMP 36.9; O2SAT 96
[2025-08-16 03:35] VITALS: BP 125/75; PULSE 91; RESP 18; TEMP 37.1; O2SAT 96
[2025-08-16 05:25] LABS: Hematocrit 41.5 % (40-54); Hemoglobin 13.8 g/dL (13.0-16.5); Immature Granulocytes Count 0.090 X10^3/uL (0.0-0.0); Mean Corp Hgb Conc 33.3 g/dL (32-36); Mean Corpuscular Volume 81.4 fL (80-94); Mean Platelet Vol. 10.0 fl (6.2-12.0); NRBC Flagged by Analyzer 0 % (0-5); POSITIVE DIFFERENTIAL YES; Platelet Count 261 K/mm3 (150-450); RBC Distribution Width CV 13.2 % (11.6-14.6); RBC Distribution Width SD 39.1 fl (35.1-43.9); Red Blood Count 5.10 M/mm3 (4.6-6.2); White Blood Count 13.3 K/mm3 (4.4-11.0)
[2025-08-16 05:27] LABS: Differential Indicated SCAN CRITERIA MET
[2025-08-16 05:54] LABS: AST(SGOT) 24 U/L (<=37); Alanine Aminotransfer ALT/SGPT 10 U/L (<=46); Albumin, Serum 3.4 g/dL (3.4-4.8); Alkaline Phosphatase 94 U/L (40-129); Anion Gap 10 (5-15); BUN 22 mg/dL (4-19); BUN/Creat Ratio 22.6 RATIO (10-20); Calcium,Total 9.0 mg/dL (7.6-11.0); Carbon Dioxide 24.7 mmol/L (21.0-32.0); Chloride 100 mmol/L (98-108); Estimated Creatinine Clearance 70.70 ml/min (50-250); Globulin 3.3 g/dL (2.2-4.2); Glucose 103 mg/dL (70-99); Potassium 4.1 mmol/L (3.3-5.1)
[2025-08-16 09:30] VITALS: O2SAT 95
[2025-08-16 09:57] VITALS: BP 123/79; PULSE 88; RESP 16; TEMP 37.2; O2SAT 97
[2025-08-16 09:58] VITALS: BP 123/79; PULSE 88
[2025-08-16] MEDS: Metoprolol(XL)Succ 50 MG Tablet PO (09:58)
[2025-08-16] MEDS: APIXABAN 5 MG TABLET PO ×2 (09:58→22:46)
[2025-08-16] MEDS: Polyethylene Glycol 3350 17 GM PACKET PO (09:59)
--- NOTE | 2025-08-16 10:59 | CASEMGMT ---
Social Work- SW met with pt, pt sister, and pt [id number] per AUGUSTUS and sister request. SW again explained that determination for RU has not been completed as staff are not in over the weekend and they wanted to follow for medical workup and therapy before making a decision. Pt sister and AUGUSTUS again expressed understanding. Pt reports that he is feeling okay other than feeling the need to urinate frequently. Pt sister and AUGUSTUS had a plethora of medical questions and concerns. SW offered to get pt nurse and also relay concerns to hospitalist. Pt sister reports that nurse plans to return in an hour for meds. SW still updated bedside nurse and hospitalist so that medical questions can be addressed in a timely manner. SW remains available to follow. ROSALIA Perry
--- NOTE | 2025-08-16 13:15 | RAD_ITS ---
PROCEDURE: RAD/Chest 1 View (Portable)
[2025-08-16 14:15] LABS: Magnesium 2.0 mg/dL (1.5-2.2); Vitamin B12 436 pg/mL (180-914); Vitamin D,25 Hydroxy 15.3 ng/mL (30-100)
[2025-08-16 15:35] VITALS: BP 160/139; PULSE 74; RESP 15; TEMP 37.9; O2SAT 96
[2025-08-16] MEDS: 0.9% Normal Saline (1000mL) 1,000 ML 75 ML IV (15:38)
[2025-08-16] MEDS: 0.9% Saline Lock 10 ML Syringe IV (15:41)
[2025-08-16] MEDS: Cholecalciferol (Vit D3) 125 MCG CAPSULE (5,000 UNITS) PO (18:43)
[2025-08-16 18:51] LABS: Color, Urine Yellow (Yellow); Glucose, Dipstick Normal (Normal); Ketone-Dipstick 15 mg/dl (Negative); Leukocyte Esterase-Dipstick 25 /ul (Negative); Nitrite-Dipstick Negative (Negative); Occult Blood-Urine 250 /ul (Negative); Protein-Dipstick 100 mg/dl (Negative); Specific Gravity, Urine 1.020 (1.002-1.030); Urine Bilirubin Dipstick Negative (Negative)
[2025-08-16 19:12] LABS: Red Blood Cells-Urine 0-5 SEEN /hpf (0-5); Squamous Epithelial Cells - UA 0-5 SEEN /hpf (0-5)
[2025-08-16 19:13] LABS: Fine Granular Cast- Urine 0-5 SEEN /lpf (0-5); Mucous, Urine 1+ /hpf (<or=2+)
--- NOTE | 2025-08-16 19:25 | PN.HOSP_ITS ---
Reason for Visit
--- NOTE | 2025-08-16 19:25 | PCM.PN.HOSP ---
Reason for Visit Chief Complaint: Worsening weakness and difficulty with ambulation Subjective Subjective Patient feeling generally weak, possibly somewhat better but still weak compared to baseline. Denies any shortness of breath or cough at this time but when asked specifically did note occasional slight cough when eating, family also note that he had some swelling in his lower extremities more so yesterday but today they look much better, he denies any abdominal pain or bowel complaints, did not note any changes in urination per se but when pointed out abnormal urine color he did not knowledge Objective Data Objective Data Vital Signs: Vital Signs Temp Pulse Resp BP Pulse Ox O2 Del Method 100.2 F H 74 15 160/139 H 96 Room Air 08/16/25 15:35 08/16/25 15:35 08/16/25 15:35 08/16/25 15:35 08/16/25 15:35 08/16/25 15:35 Oxygen Delivery Method Room Air Weight: 88.451 kg Body Mass Index (BMI) 27.9 Intake & Output: Intake and Output for Last 24 Hours 08/14/25 08/15/25 08/16/25 23:59 23:59 23:59 Intake Total 1200 / 1200 1050 / 1280 530 / 530 Output Total 600 / 1050 800 / 800 Balance 1200 / 1200 450 / 230 -270 / -270 Lab / Micro Data 08/16/25 05:02 08/16/25 05:02 Labs: Laboratory Results - last 24 hr 08/16/25 05:00: Hemoglobin A1c 5.7, Phosphorus 2.7, Magnesium 2.0, Vitamin B12 436, Vitamin D 25-Hydroxy 15.3 L 08/16/25 05:02: WBC 13.3 H, RBC 5.10, Hgb 13.8, Hct 41.5, MCV 81.4, MCH 27.1, MCHC 33.3, RDW Std Deviation 39.1, RDW Coeff of Navneet 13.2, Plt Count 261, MPV 10.0, Immature Gran % (Auto) 0.700, Neut % (Auto) 78.1 H, Lymph % (Auto) 9.2 L, [place] % (Auto) 11.4 H, Eos % (Auto) 0.1, Baso % (Auto) 0.5, Absolute Neuts (auto) 10.4 H, Absolute Lymphs (auto) 1.22, Nucleated RBC % 0, Sodium 134, Potassium 4.1, Chloride 100, Carbon Dioxide 24.7, Anion Gap 10, BUN 22 H, Creatinine 0.98, Estim Creat Clear Calc 70.70, Est GFR (MDRD) Non-Af 79, BUN/Creatinine Ratio 22.6 H, Glucose 103 H, Calcium 9.0, Total Bilirubin 1.68 H, AST 24, ALT 10, Alkaline Phosphatase 94, Total Protein 6.7, Albumin 3.4, Globulin 3.3, Albumin/Globulin Ratio 1.0 08/16/25 18:25: Urine Color Yellow, Urine Clarity Clear, Urine pH 5.0, Ur Specific [place] 1.020, Urine Protein 100 H, Urine Glucose (UA) Normal, Urine Ketones 15 H, Urine Occult Blood 250 H, Urine Nitrite Negative, Urine Bilirubin Negative, Urine Urobilinogen 1 H, Ur Leukocyte Esterase 25 H, Urine RBC 0-5 SEEN, Urine WBC 5-10 SEEN, Ur Squamous Epith Cells 0-5 SEEN, Ur Renal Epithelial Cell 0-5 SEEN, Urine Bacteria 1+, Hyaline Casts 0-5 SEEN, Fine Granular Casts 0-5 SEEN, Urine Mucus 1+ Micro: Microbiology 08/14/25 17:15 Mucosa - Nasopharyngeal Respiratory Panel (PCR) - Final Radiography Diagnostic Testing: Radiology Impression Chest X-Ray 08/16/25 13:15 IMPRESSION: Mild cardiac enlargement Reading Location: [facility] Physical Exam Narrative General: Alert, oriented, no apparent distress HEENT: Atraumatic, normocephalic Eyes: Anicteric, normal conjunctiva, extraocular movements grossly intact Neck: Supple Respiratory: Clear to auscultation bilaterally, normal respiratory effort Cardiovascular: Regular rate GI: Soft, nontender, nondistended Extremities: Trace lower extremity pitting edema up to the level of shins Musculoskeletal: Moving all extremities Neuro: No overt focal neurological deficits Skin: No rashes appreciated Psych: Cooperative Assessment & Plan Assessment/Plan (1) Generalized weakness: PLAN: Plan #Generalized weakness -Pt presented w/ generalized weakness w/ no focal complaints -WBC on presentation 13.7 but pt w/ no infectious complaints -Has remained stable at 13.3 despite to abx however given changes in urine repeat UA obtained and concern that he has an early infection and temp creeped up to 100.2 -Will start Rocephin while awaiting urine culture -Continue PT/OT -Plan will be for placement -B12, mag, Phos within normal limits, vitamin D low will replace -TSH within normal limits -Pt reports very poor PO intake, starting thiamine and folate and appears little bit volume depleted, given gentle IV fluids #Abnormal UA -Possible early UTI - Patient had discolored urine and still complaining of generalized weakness repeat UA was sent which does show bacteria, blood, leuk esterase - Will start empiric antibiotics while waiting culture and sensitivity data given that, temp of 100.2 and slightly elevated white count with no other evidence or suggestion of other potential infective etiology #Hypertension - Patient continued on home medications # Parkinson's disease - continue Sinemet -Patient had Sinemet listed as 3 times daily however clarified he was taking it twice daily and has been having problems with his feet feeling like they are sticking in the floor and increased Parkinson symptoms -He is tolerating the Sinemet 3 times daily and does seem to have had some improvement in symptoms so we will continue at this time - supportive care # History of bladder cancer -Follows with Dr. Butt #Hypothyroidism -Continue Synthroid #Paroxysmal Atrial Fibrillation -Rate control: Metoprolol -Anticoagulation: Eliquis #DVT ppx: On Eliquis Sheila Ayala MD Time spent in the patient's overall evaluation, decision-making process, review of diagnostic data, adjustment of management, discussion with other providers, nursing and ancillary staff involved in patient's care documentation, 62 Minutes Charges/Coding Visit Charges Inpatient E&M: 07885 Subs Hosp L3
[2025-08-16 22:44] VITALS: BP 149/75; PULSE 89; RESP 16; TEMP 36.8; O2SAT 98
[2025-08-16] MEDS: MELATONIN 3 MG TABLET PO (22:58)
[2025-08-17 04:23] VITALS: BP 131/78; PULSE 87; RESP 16; TEMP 36.7; O2SAT 97
[2025-08-17 05:53] LABS: Hematocrit 39.3 % (40-54); Hemoglobin 13.1 g/dL (13.0-16.5); Immature Granulocytes Count 0.090 X10^3/uL (0.0-0.0); Mean Corp Hgb Conc 33.3 g/dL (32-36); Mean Corpuscular Volume 81.4 fL (80-94); Mean Platelet Vol. 10.1 fl (6.2-12.0); NRBC Flagged by Analyzer 0 % (0-5); Platelet Count 243 K/mm3 (150-450); RBC Distribution Width CV 13.2 % (11.6-14.6); RBC Distribution Width SD 38.9 fl (35.1-43.9); Red Blood Count 4.83 M/mm3 (4.6-6.2); White Blood Count 12.1 K/mm3 (4.4-11.0)
[2025-08-17 06:16] LABS: Anion Gap 10 (5-15); BUN 22 mg/dL (4-19); BUN/Creat Ratio 26.7 RATIO (10-20); Calcium,Total 8.6 mg/dL (7.6-11.0); Carbon Dioxide 23.1 mmol/L (21.0-32.0); Chloride 101 mmol/L (98-108); Estimated Creatinine Clearance 84.49 ml/min (50-250); Glucose 119 mg/dL (70-99); Potassium 3.8 mmol/L (3.3-5.1)
[2025-08-17 08:59] VITALS: O2SAT 95
[2025-08-17 09:25] VITALS: BP 117/73; PULSE 83; RESP 16; TEMP 36.8; O2SAT 96
[2025-08-17 09:26] VITALS: BP 117/73; PULSE 83
[2025-08-17] MEDS: Polyethylene Glycol 3350 17 GM PACKET PO (09:26)
[2025-08-17] MEDS: Metoprolol(XL)Succ 50 MG Tablet PO (09:26)
[2025-08-17] MEDS: Thiamine Hydrochloride 100 MG Tablet PO (09:27)
[2025-08-17] MEDS: APIXABAN 5 MG TABLET PO ×2 (09:27→21:52)
[2025-08-17] MEDS: Cholecalciferol (Vit D3) 125 MCG CAPSULE (5,000 UNITS) PO (09:28)
[2025-08-17 14:34] VITALS: BP 120/78; PULSE 76; RESP 18; TEMP 36.8; O2SAT 98
--- NOTE | 2025-08-17 16:49 | PN.HOSP_ITS ---
Reason for Visit
--- NOTE | 2025-08-17 16:49 | PCM.PN.HOSP ---
Reason for Visit Chief Complaint: Worsening weakness and difficulty with ambulation Subjective Subjective Patient reports feeling little bit better today maybe a little bit stronger, unfortunately shortly after his visitors left he did try to get up on his own and slid there to the floor per patient without injuring anything or hitting his head, after getting up into a chair he had no acute complaints Objective Data Objective Data Vital Signs: Vital Signs Temp Pulse Resp BP Pulse Ox O2 Del Method 98.2 F 76 18 120/78 98 Room Air 08/17/25 14:34 08/17/25 14:34 08/17/25 14:34 08/17/25 14:34 08/17/25 14:34 08/17/25 14:35 Oxygen Delivery Method Room Air Weight: 88.451 kg Body Mass Index (BMI) 27.9 Intake & Output: Intake and Output for Last 24 Hours 08/15/25 08/16/25 08/17/25 23:59 23:59 22:59 Intake Total 1050 / 1280 930 / 1030 1350 / 1350 Output Total 600 / 1050 1200 / 1260 810 / 810 Balance 450 / 230 -270 / -230 540 / 540 Lab / Micro Data 08/17/25 05:28 08/17/25 05:28 Labs: Laboratory Results - last 24 hr 08/16/25 18:25: Urine Color Yellow, Urine Clarity Clear, Urine pH 5.0, Ur Specific Randall 1.020, Urine Protein 100 H, Urine Glucose (UA) Normal, Urine Ketones 15 H, Urine Occult Blood 250 H, Urine Nitrite Negative, Urine Bilirubin Negative, Urine Urobilinogen 1 H, Ur Leukocyte Esterase 25 H, Urine RBC 0-5 SEEN, Urine WBC 5-10 SEEN, Ur Squamous Epith Cells 0-5 SEEN, Ur Renal Epithelial Cell 0-5 SEEN, Urine Bacteria 1+, Hyaline Casts 0-5 SEEN, Fine Granular Casts 0-5 SEEN, Urine Mucus 1+ 08/17/25 05:28: WBC 12.1 H, RBC 4.83, Hgb 13.1, Hct 39.3 L, MCV 81.4, MCH 27.1, MCHC 33.3, RDW Std Deviation 38.9, RDW Coeff of Navneet 13.2, Plt Count 243, MPV 10.1, Immature Gran % (Auto) 0.700, Neut % (Auto) 79.5 H, Lymph % (Auto) 9.2 L, [place] % (Auto) 9.8, Eos % (Auto) 0.2, Baso % (Auto) 0.6, Absolute Neuts (auto) 9.7 H, Absolute Lymphs (auto) 1.11, Nucleated RBC % 0, Sodium 134, Potassium 3.8, Chloride 101, Carbon Dioxide 23.1, Anion Gap 10, BUN 22 H, Creatinine 0.82, Estim Creat Clear Calc 84.49, Est GFR (MDRD) Non-Af 91, BUN/Creatinine Ratio 26.7 H, Glucose 119 H, Calcium 8.6 Micro: Microbiology 08/14/25 17:15 Mucosa - Nasopharyngeal Respiratory Panel (PCR) - Final Physical Exam Narrative General: Alert, oriented, no apparent distress HEENT: Atraumatic, normocephalic Eyes: Anicteric, normal conjunctiva, extraocular movements grossly intact Neck: Supple Respiratory: Clear to auscultation bilaterally, normal respiratory effort Cardiovascular: Regular rate GI: Soft, nontender, nondistended Extremities: Trace lower extremity pitting edema up to the level of shins, largely unchanged Musculoskeletal: Moving all extremities Neuro: No overt focal neurological deficits Skin: No rashes appreciated Psych: Cooperative Assessment & Plan Assessment/Plan (1) Generalized weakness: PLAN: Plan #Generalized weakness -Pt presented w/ generalized weakness w/ no focal complaints -WBC on presentation 13.7 but pt w/ no infectious complaints -Has remained stable at 13.3 despite to abx however given changes in urine repeat UA obtained and concern that he has an early infection and temp creeped up to 100.2 -Will start Rocephin while awaiting urine culture -Continue PT/OT -Plan will be for placement -B12, mag, Phos within normal limits, vitamin D low will replace -TSH within normal limits -Pt reports very poor PO intake, starting thiamine and folate and appears little bit volume depleted, given gentle IV fluids -08/17: Patient thinks may be he is a little bit better after starting the antibiotics however did still have an episode where he tried to get up on his own and slathered down to the floor, denies any injury, continue PT/OT, plan is for placement #Abnormal UA -Possible early UTI - Patient had discolored urine and still complaining of generalized weakness repeat UA was sent which does show bacteria, blood, leuk esterase - Will start empiric antibiotics while waiting culture and sensitivity data given that, temp of 100.2 and slightly elevated white count with no other evidence or suggestion of other potential infective etiology -08/17: Awaiting culture and sensitivity data #Hypertension - Patient continued on home medications -08/17: Blood pressure well-controlled, continue current management # Parkinson's disease - continue Sinemet -Patient had Sinemet listed as 3 times daily however clarified he was taking it twice daily and has been having problems with his feet feeling like they are sticking in the floor and increased Parkinson symptoms -He is tolerating the Sinemet 3 times daily and does seem to have had some improvement in symptoms so we will continue at this time - supportive care -08/17: Remains on Sinemet 3 times daily, continue current management supportive care Chronic medical problems and/or problems not being actively addressed during today's encounter: # History of bladder cancer -Follows with Dr. Butt #Hypothyroidism -Continue Synthroid #Paroxysmal Atrial Fibrillation -Rate control: Metoprolol -Anticoagulation: Eliquis #DVT ppx: On Eliquis Sheila Ayala MD Time spent in the patient's overall evaluation, decision-making process, review of diagnostic data, adjustment of management, discussion with other providers, nursing and ancillary staff involved in patient's care documentation, 40 Minutes Charges/Coding Visit Charges Inpatient E&M: 01963 Subs Hosp L2
[2025-08-17] MEDS: MELATONIN 3 MG TABLET PO (21:56)
[2025-08-17 21:58] VITALS: BP 107/77; PULSE 87; RESP 16; TEMP 37; O2SAT 95
[2025-08-18 04:22] VITALS: BP 126/81; PULSE 95; RESP 16; TEMP 37.1; O2SAT 97
[2025-08-18 06:06] LABS: Hematocrit 41.1 % (40-54); Hemoglobin 13.7 g/dL (13.0-16.5); Immature Granulocytes Count 0.050 X10^3/uL (0.0-0.0); Mean Corp Hgb Conc 33.3 g/dL (32-36); Mean Corpuscular Volume 81.1 fL (80-94); Mean Platelet Vol. 9.8 fl (6.2-12.0); NRBC Flagged by Analyzer 0 % (0-5); Platelet Count 293 K/mm3 (150-450); RBC Distribution Width CV 13.2 % (11.6-14.6); RBC Distribution Width SD 38.7 fl (35.1-43.9); Red Blood Count 5.07 M/mm3 (4.6-6.2); White Blood Count 10.7 K/mm3 (4.4-11.0)
[2025-08-18 06:41] LABS: Anion Gap 11 (5-15); BUN 21 mg/dL (4-19); BUN/Creat Ratio 24.9 RATIO (10-20); Calcium,Total 8.8 mg/dL (7.6-11.0); Carbon Dioxide 24.8 mmol/L (21.0-32.0); Chloride 99 mmol/L (98-108); Estimated Creatinine Clearance 82.48 ml/min (50-250); Glucose 102 mg/dL (70-99); Potassium 3.8 mmol/L (3.3-5.1)
[2025-08-18 08:23] VITALS: BP 132/78; PULSE 87; RESP 16; TEMP 36.6; O2SAT 95
[2025-08-18] MEDS: Polyethylene Glycol 3350 17 GM PACKET PO (08:33)
[2025-08-18 08:34] VITALS: PULSE 87
[2025-08-18] MEDS: Thiamine Hydrochloride 100 MG Tablet PO (08:34)
[2025-08-18] MEDS: Metoprolol(XL)Succ 50 MG Tablet PO (08:34)
[2025-08-18] MEDS: APIXABAN 5 MG TABLET PO (08:34)
[2025-08-18] MEDS: Cholecalciferol (Vit D3) 125 MCG CAPSULE (5,000 UNITS) PO (11:01)
[2025-08-18] MEDS: 0.9% Saline Lock 10 ML Syringe IV (11:01)
--- NOTE | 2025-08-18 12:35 | CASEMGMT ---
Social Work- SW met with pt to update on RU acceptance. SW updated hospitalist; plans are to d/c pt. Pt reports that he is doing well and is agreeable to d/c to [facility]. SW to update pt sister per request. SW called Amy; sister appreciative of update. SW remains available to follow. Plan: [facility] ROSALIA Valdez
--- NOTE | 2025-08-18 14:41 | DCINST_ITS ---
Discharge Instructions
--- NOTE | 2025-08-18 14:43 | PCM.DC.SUM ---
Providers Date of Admission: 08/16/25 Date of Discharge: 08/18/25 Primary Care Physician: Dr. Celso Julien MD Reason For Visit: WEAKNESS Diagnosis Discharge Diagnosis (1) Generalized weakness: Status: Acute Code(s): R53.1 - Weakness (2) UTI (urinary tract infection): Status: Acute Code(s): N39.0 - Urinary tract infection, site not specified Plan #Generalized weakness suspect 2/2 to UTI #Abnormal UA #Hypertension # Parkinson's disease # History of bladder cancer #Hypothyroidism #Paroxysmal Atrial Fibrillation Medications at Discharge Home Medications amlodipine 10 mg tablet 10 tab PO DAILY blood pressure 04/19/22 carbidopa 25 mg-levodopa 100 mg tablet 1 tab PO TID parkinsons 04/19/22 allopurinol 100 mg tablet 100 mg PO DAILYCM 60 days #60 tabs 10/21/23 lisinopril 5 mg tablet 5 mg PO DAILY blood pressure 60 days #60 tabs 10/21/23 polyethylene glycol 3350 17 gram/dose oral powder (Miralax) 17 g PO DAILY constipation #119 grams 06/11/25 apixaban 5 mg tablet (Eliquis) 5 mg PO DAILY heart 08/14/25 levothyroxine 100 mcg tablet 100 mcg PO DAILY disorder of thyroid gland 08/14/25 metoprolol succinate 50 mg tablet,extended release 24 hr 50 mg PO DAILY heart 08/14/25 cholecalciferol (vitamin D3) 125 mcg (5,000 unit) capsule 125 mcg PO DAILY #0 caps 08/18/25 Hospital Course Summary of Care Provided Minutes Spent on Discharge: 27 Hospital Course: 75-year-old male history of Parkinson's, A-fib, hypothyroidism, hypertension, gout presented to [facility] ED 08/14/2025 due to generalized weakness, unsteady on feet, difficulty with ambulation. In the ED labs notable for a white count of 13 however workup otherwise benign and CT brain unremarkable, no infectious signs or symptoms at the time but given his worsened debility hospitalist contacted for admission. During admission it was noted that patient had discolored urine and UA was reobtained, suggestive of early UTI given that with temp of 100.2 and slightly elevated white count as well as generalized weakness patient started empirically on Rocephin and did begin to have improvement. On day of discharge no new or acute complaints, patient excepted to inpatient med rehab and was transferred there in stable condition. Physical Exam Narrative General: Alert, oriented, no apparent distress HEENT: Atraumatic, normocephalic Eyes: Anicteric, normal conjunctiva, extraocular movements grossly intact Neck: Supple Respiratory: Clear to auscultation bilaterally, normal respiratory effort Cardiovascular: Regular rate GI: Soft, nontender, nondistended Extremities: Trace lower extremity pitting edema up to the level of shins, largely unchanged Musculoskeletal: Moving all extremities Neuro: No overt focal neurological deficits Skin: No rashes appreciated Psych: Cooperative Weight / BMI Weight Weight: 88.451 kg Body Mass Index (BMI) 27.9 ABG / Lab / Microbiology Data 08/18/25 05:39 08/18/25 05:39 Laboratory: Laboratory Results - last 24 hr 08/18/25 05:39: WBC 10.7, RBC 5.07, Hgb 13.7, Hct 41.1, MCV 81.1, MCH 27.0, MCHC 33.3, RDW Std Deviation 38.7, RDW Coeff of Navneet 13.2, Plt Count 293, MPV 9.8, Immature Gran % (Auto) 0.500, Neut % (Auto) 79.7 H, Lymph % (Auto) 8.9 L, [place] % (Auto) 10.1 H, Eos % (Auto) 0.3, Baso % (Auto) 0.5, Absolute Neuts (auto) 8.6 H, Absolute Lymphs (auto) 0.96, Nucleated RBC % 0, Sodium 134, Potassium 3.8, Chloride 99, Carbon Dioxide 24.8, Anion Gap 11, BUN 21 H, Creatinine 0.84, Estim Creat Clear Calc 82.48, Est GFR (MDRD) Non-Af 90, BUN/Creatinine Ratio 24.9 H, Glucose 102 H, Calcium 8.8 Microbiology: Microbiology 08/14/25 17:15 Mucosa - Nasopharyngeal Respiratory Panel (PCR) - Final D/C Instructions DC O2, CPAP, BIPAP Needs Home O2 Discharge instructions: No Meaningful Use Info Meaningful Use Meaningful Use Diagnoses (Choose all that apply): None applicable Discharge Plan Admission Admit Date/Time: 08/16/25 14:45 Primary Reason for Your Visit: Generalized weakness, UTI Attending Provider: Sheila Ayala Primary Care Provider: Celso Julien Consulting Providers: Carlos Avalos; Freddy Avila Instructions Patient Instructions: ED Fall Prevention Additional Instructions / Restrictions: DISCHARGE INSTRUCTIONS PLEASE READ *Please take this with you to your next doctors appointment* - You will be discharged on cefdinir 300 mg twice daily for 5 more days starting 08/19/25 - Your urine culture results have not finalized and will need to be followed up however given your significant improvement on Rocephin feel it is reasonable to treat empirically with this agent, alternate agent can be prescribed if needed pending urine culture - Given some intermittent lower extremity swelling he may benefit from compression stockings or Williams wrap - Also found to have a low vitamin D so replacement started -Please call your primary care provider's office upon discharge to schedule a hospital follow up within 1 week. -For any concerning signs or symptoms please call 911 or proceed to the nearest emergency department Discharge Orders/Prescriptions Prescriptions: New cholecalciferol (vitamin D3) 125 mcg (5,000 unit) Capsule 125 mcg PO DAILY Qty: 0 0RF Continued amlodipine 10 mg tablet 10 tab PO DAILY Patient Comments: TAKE 1 TABLET BY MOUTH EVERY DAY carbidopa-levodopa 25-100 mg tablet 1 tab PO TID allopurinol 100 mg Tablet 100 mg PO DAILYCM 60 Days Qty: 60 0RF lisinopril 5 mg Tablet 5 mg PO DAILY 60 Days Qty: 60 0RF Patient Comments: pt states he has not been taking because he did not know what it was for but will start taking now polyethylene glycol 3350 [Miralax] 17 gram/dose powder 17 g PO DAILY Qty: 119 0RF metoprolol succinate 50 mg tablet extended release 24 hr 50 mg PO DAILY levothyroxine 100 mcg tablet 100 mcg PO DAILY Eliquis 5 mg Tablet 5 mg PO DAILY Referrals / Follow Up: Celso Julien MD [Primary Care Provider, Medical] Disposition Disposition (needs filled in before D/C Order can be placed): Inpatient Rehab Unit/Facility Charges/Coding Visit Charges Inpatient E&M: 50142 Disch Hosp
[2025-08-18 14:47] VITALS: BP 104/58; PULSE 70; RESP 16; TEMP 36.4; O2SAT 99
--- NOTE | 2025-08-18 14:53 | PHA.DC_ITS ---
Pharmacy [place] Med Reconciliation
--- NOTE | 2025-08-18 14:53 | PHA.DC.MR.R ---
Pharmacy [place] Med Reconciliation Pharmacy Service has performed discharge medication reconciliation for this patient. The patient's discharge medication list was reviewed for discrepancies and discrepancies were resolved. Medications at Discharge Home Medications amlodipine 10 mg tablet 10 tab PO DAILY blood pressure 04/19/22 carbidopa 25 mg-levodopa 100 mg tablet 1 tab PO TID parkinsons 04/19/22 allopurinol 100 mg tablet 100 mg PO DAILYCM 60 days #60 tabs 10/21/23 lisinopril 5 mg tablet 5 mg PO DAILY blood pressure 60 days #60 tabs 10/21/23 polyethylene glycol 3350 17 gram/dose oral powder (Miralax) 17 g PO DAILY constipation #119 grams 06/11/25 apixaban 5 mg tablet (Eliquis) 5 mg PO DAILY heart 08/14/25 levothyroxine 100 mcg tablet 100 mcg PO DAILY disorder of thyroid gland 08/14/25 metoprolol succinate 50 mg tablet,extended release 24 hr 50 mg PO DAILY heart 08/14/25 cefdinir 300 mg capsule 300 mg PO BID 5 days #10 caps 08/18/25 cholecalciferol (vitamin D3) 125 mcg (5,000 unit) capsule 125 mcg PO DAILY #0 caps 08/18/25
--- NOTE | 2025-08-18 15:39 | CASEMGMT ---
Addendum entered by Judy Posey 08/18/25 16:44: SW called pt sister and provided d/c information. Pt sister appreciative of update. ROSALIA Perry Original Note: Social Work Physician updated and pt is ready for discharge today.?BRAULIO met with pt and they are agreeable to discharge plan as stated above.? Bedside nurse notified of discharge. Disposition:[facility] Rehab Unit ROSALIA Perry
--- NOTE | 2025-08-18 15:39 | NURSING ---
spoke with inpt rehab, nurse in providing care to another patient and will call back when she is available for pt report.
== END 2025-08-18 17:23 | DRG 690 ==
LOC: ED 15:04 → MS3 15:21
PROVIDERS: Internal Medicine; Admitting Provider Hospitalist; Emergency Provider Emergency Medicine; PCP Family Medicine; Visit Provider Internal Medicine
DX: N39.0 Urinary tract infection, site not specified (principal); E03.9 Hypothyroidism, unspecified; G20.A1 Parkinson's disease without dyskinesia, without mention of fluctuations; I10 Essential (primary) hypertension; I48.0 Paroxysmal atrial fibrillation; E86.0 Dehydration; M10.9 Gout, unspecified; I95.9 Hypotension, unspecified; R60.0 Localized edema; Z85.51 Personal history of malignant neoplasm of bladder; Z79.01 Long term (current) use of anticoagulants; Z87.19 Personal history of other diseases of the digestive system; Z79.899 Other long term (current) drug therapy; Z87.891 Personal history of nicotine dependence; Z79.890 Hormone replacement therapy; Z90.49 Acquired absence of other specified parts of digestive tract; Z86.73 Personal history of transient ischemic attack (TIA), and cerebral infarction without residual deficits
CPT/HCPCS: 36415; 70450; 71045; 80048; 80053; 81001; 82306; 82607; 83036; 83735; 84100; 84443; 85025; 85027; 85610; 85730; 87086; 87633; 92526; 92610; 94668; 97116; 97163; 97167; 97530; 97535; 99285; A4216

== ENCOUNTER 2025-08-18 17:45 | Inpatient (IN) | payer MEDICARE, OTHER, SELFPAY ==
[2025-08-18 18:06] VITALS: BP 115/69; PULSE 91; RESP 15; TEMP 36.4; O2SAT 97; BMI 26.9
[2025-08-18 20:20] VITALS: BMI 26.9
[2025-08-18 21:00] VITALS: RESP 15; O2SAT 94
[2025-08-18] MEDS: APIXABAN 5 MG TABLET PO (21:09)
[2025-08-18] MEDS: Senna/Docusate Sodium 1 Tablet 2 TABLET PO (21:10)
[2025-08-18] MEDS: 0.9% Saline Lock 10 ML Syringe IV (22:26)
--- NOTE | 2025-08-19 00:18 | NURSING ---
Pt fails to use call light and found attempting to get oob. pt found with hospital gown removed, Attends off, and lying sideways on bed. Pt had been incontinent. Incontinence protocol performed by staff. Staff assisted with repositioning needs. Dirty linens removed and replaced. Pt denies further needs. Staff re-educates pt of call light use.
[2025-08-19 05:24] VITALS: BP 107/67; PULSE 93; RESP 16; TEMP 36.9; O2SAT 95
[2025-08-19 06:04] LABS: Hematocrit 38.4 % (40-54); Hemoglobin 12.9 g/dL (13.0-16.5); Immature Granulocytes Count 0.030 X10^3/uL (0.0-0.0); Mean Corp Hgb Conc 33.6 g/dL (32-36); Mean Corpuscular Volume 80.8 fL (80-94); Mean Platelet Vol. 9.8 fl (6.2-12.0); NRBC Flagged by Analyzer 0 % (0-5); Platelet Count 304 K/mm3 (150-450); RBC Distribution Width CV 13.2 % (11.6-14.6); RBC Distribution Width SD 38.9 fl (35.1-43.9); Red Blood Count 4.75 M/mm3 (4.6-6.2); White Blood Count 10.0 K/mm3 (4.4-11.0)
[2025-08-19 06:28] LABS: AST(SGOT) 47 U/L (<=37); Alanine Aminotransfer ALT/SGPT 9 U/L (<=46); Albumin, Serum 3.1 g/dL (3.4-4.8); Alkaline Phosphatase 94 U/L (40-129); Anion Gap 10 (5-15); BUN 25 mg/dL (4-19); BUN/Creat Ratio 30.7 RATIO (10-20); Calcium,Total 9.0 mg/dL (7.6-11.0); Carbon Dioxide 24.9 mmol/L (21.0-32.0); Chloride 101 mmol/L (98-108); Estimated Creatinine Clearance 78.86 ml/min (50-250); Globulin 3.2 g/dL (2.2-4.2); Glucose 107 mg/dL (70-99); Magnesium 2.3 mg/dL (1.5-2.2); Potassium 3.9 mmol/L (3.3-5.1)
[2025-08-19] MEDS: APIXABAN 5 MG TABLET PO ×2 (08:24→20:46)
[2025-08-19 08:25] VITALS: BP 107/68; PULSE 96
[2025-08-19] MEDS: Metoprolol(XL)Succ 50 MG Tablet PO (08:25)
[2025-08-19] MEDS: Senna/Docusate Sodium 1 Tablet 2 TABLET PO ×2 (08:25→20:45)
[2025-08-19] MEDS: Polyethylene Glycol 3350 17 GM PACKET PO (08:25)
--- NOTE | 2025-08-19 09:04 | PCM.HP.STD ---
Documented by User: JAYA Muhammad 08/19/25 10:50 HPI - General General Date of Admission: 08/18/25 Date of Service: 08/19/25 Chief Complaint: Debility with lower extremity weakness. HPI Narrative TRACI COOPER, is a 75 M who presented to [facility] emergency department on 08/14/2025 with a complaint of worsening weakness and difficulty with ambulation x 3 days prior to presentation to the emergency department. He was found to have a slight elevation in his WBCs at 13 and a total bilirubin of 1.3. CT scan in the emergency department was negative for any acute processes. Patient has history of previous CVAs he was last hospitalized in October 2023 for CVA, , A-fib and on Eliquis, Parkinson's disease, hypertension, bladder cancer with resection on 03/20/2024 And hypothyroidism. He did have an echo in October 2023 which showed stage I diastolic dysfunction with a LVEF of 60%. He has been living alone. It was reported that overnight the patient did have some confusion in which he removed all of his clothing and was laying on top of the sheets naked. Nursing staff was able to intervene and assisted in getting his close back on. Patient was cooperative during this time. He does endorses that he does still drive, but not at night because of his vision. He wears corrective lenses. I did review the patient's labs and noted hemoglobin to be 12.9 hematocrit 38.4. His BUN is very slightly elevated at 25 but his creatinine and GFR are within normal limits. BUN/creatinine ratio was slightly elevated at 107. He does have an elevated magnesium at 2.3, AST is slightly elevated at 47 and his albumin is decreased at 3.1. Dietitian consult has been ordered. Patient states that he follows with Sade Calero in [place] for his Parkinson's. He is on carbidopa/ levodopa for management. Patient states that he does have a history of chronic constipation and states he only has bowel movements approximately 2 times per week. Bowel regiment has been ordered. I did note him to have significant bilateral lower extremity pitting edema. The patient is on Norvasc which may be contributing to his peripheral edema. I did have a discussion with Dr. Pichardo and decision was made to change the patient's Norvasc to hydrochlorothiazide 12.5 mg and continue to monitor blood pressures and kidney function. He currently has bilateral lower extremities wrapped with Williams wrap's. Patient did have a UA while he was being treated for his medical complaints which did show some white blood cells. He was given 2 doses of Rocephin and started on cefdinir. Patient did have a culture sent which did not show any growth on the final report. Will discontinue the cefdinir. Patient denies pain or shortness of breath today. He is alert and oriented x 3. He states that he does not have any children but relies on neighbors or his sister Grupo for assistance when needed. Diet: Regular diet, nursing to monitor I's and O's.. Patient appears to have sundowning tendencies. Continue to monitor with alarms in place. [facility] Medical History (Updated 08/19/25 @ 10:01 by JAYA Muhammad) Loss of hearing Wears glasses Cancer Gout Thyroid disease Bladder disease High cholesterol Shortness of breath on exertion Former smoker History of echocardiogram Cardiology follow-up encounter History of atrial fibrillation HTN (hypertension) Hypothyroid Parkinson disease Home Medications Medication Instructions Recorded Last Taken Type amlodipine 10 mg tablet 10 tab PO DAILY blood pressure 04/19/22 08/13/25 History carbidopa 25 mg-levodopa 100 mg 1 tab PO TID parkinsons 04/19/22 08/14/25 History tablet allopurinol 100 mg tablet 100 mg PO DAILYCM Gout 60 days #60 10/21/23 Unknown Rx tabs lisinopril 5 mg tablet 5 mg PO DAILY blood pressure 60 10/21/23 Unknown Rx days #60 tabs polyethylene glycol 3350 17 17 g PO DAILY constipation #119 06/11/25 08/11/25 Rx gram/dose oral powder (Miralax) grams apixaban 5 mg tablet (Eliquis) 5 mg PO DAILY heart 08/14/25 08/14/25 History levothyroxine 100 mcg tablet 100 mcg PO DAILY disorder of 08/14/25 08/13/25 History thyroid gland metoprolol succinate 50 mg 50 mg PO DAILY heart 08/14/25 08/14/25 History tablet,extended release 24 hr cefdinir 300 mg capsule 300 mg PO BID Antibiotic 08/18/25 Unknown History Allergy/AdvReac Type Severity Reaction Status Date / Time No Known Allergies Allergy Verified 07/15/25 12:43 Surgical History Status post laparoscopic cholecystectomy Social History Smoking Status: Former smoker ROS Constitutional Constitutional: Reports weakness Eyes Eyes: Reports other Details: Patient wears corrective lenses. ENT HEENT: Reports systems reviewed and no addt'l complaints, except as documented Cardiovascular Cardiovascular: Reports leg edema Respiratory/Chest Respiratory/Chest: Reports systems reviewed and no addt'l complaints, except as documented Gastrointestinal Gastrointestinal: Reports constipation Genitourinary Genitourinary: Reports dribbling Musculoskeletal Musculoskeletal: Reports difficulty walking Integumentary Integumentary: Reports dry skin Neurologic Neurologic: Reports abnormal movements Psychiatric Psychiatric: Reports visual hallucinations Endocrine Endocrinology: Reports as per HPI Hematologic/Lymphatic Hematologic/Lymphatic: Reports as per HPI Allergic/Immunologic Allergic/Immunologic: Reports as per HPI Vital Signs Vital Signs Vital Signs: 08/18/25 18:06 08/18/25 21:00 08/19/25 05:24 Temperature 97.6 F L 98.5 F Temperature Source Temporal Temporal Pulse Rate 91 93 Respiratory Rate 15 15 16 Respiratory Effort Normal Non-Labored Respiratory Depth Normal Respiratory Pattern Normal Blood Pressure 115/69 107/67 Blood Pressure Mean 84 80 Blood Pressure Source Monitor Monitor Blood Pressure Position Semi-Fowlers Semi-Fowlers Blood Pressure Location Right Arm Left Arm Pulse Ox 97 94 95 Oxygen Delivery Method Room Air Room Air Room Air 08/19/25 07:12 08/19/25 08:25 Temperature Temperature Source Pulse Rate 96 Respiratory Rate Respiratory Effort Respiratory Depth Respiratory Pattern Blood Pressure 107/68 Blood Pressure Mean Blood Pressure Source Blood Pressure Position Blood Pressure Location Pulse Ox Oxygen Delivery Method Room Air Weight Weight: 188 lb Body Mass Index (BMI) 26.9 Physical Exam Const alert and oriented x3 General Appearance: cooperative Orientation / Consciousness: awake, oriented to person, oriented to place and oriented to time Exam Limitations: no limitations HEENT normocephalic Eyes PERRL Eyes Narrative: Pupils are 2 mm and reactive Neck full ROM Lymph Lymphatic: no lymphadenopathy noted Chest inspection of chest normal Resp normal respiratory effort, normal air movement, no retractions, no use of accessory muscles and clear to auscultation bilaterally Effort and Inspection: able to speak in complete sentences Cardio regular rate Rhythm: abnormal rhythm Peripheral Pulses: pulses 2+ throughout GI GI Narrative: Patient reports constipation. Auscultation: normoactive bowel sounds no CVA tenderness Narrative: Incontinent of urine. Back/Spine no CVA tenderness Extremity General Extremity: edema bilateral (3+ pitting edema to bilateral lower extremities) lower extremity Skin no rashes or lesions noted Neuro oriented x3 Neuro Narrative: Patient does have upper extremity tremors related to Parkinson's. Lower extremity weakness. Sensorium / Orientation: awake, alert, oriented to person, oriented to place and oriented to time Speech: speech normal Psych Attitude: calm and engaged Activity / Motor Behavior: appropriate eye contact Speech: normal speech Insight: fair Judgement: limited Results Lab / Micro Data 08/19/25 05:35 08/19/25 05:35 Labs: Laboratory Results - last 24 hr 08/19/25 05:35: WBC 10.0, RBC 4.75, Hgb 12.9 L, Hct 38.4 L, MCV 80.8, MCH 27.2, MCHC 33.6, RDW Std Deviation 38.9, RDW Coeff of Navneet 13.2, Plt Count 304, MPV 9.8, Immature Gran % (Auto) 0.300, Neut % (Auto) 77.3 H, Lymph % (Auto) 10.2 L, Blackford % (Auto) 10.9 H, Eos % (Auto) 0.8, Baso % (Auto) 0.5, Absolute Neuts (auto) 7.8 H, Absolute Lymphs (auto) 1.02, Nucleated RBC % 0, Sodium 136, Potassium 3.9, Chloride 101, Carbon Dioxide 24.9, Anion Gap 10, BUN 25 H, Creatinine 0.81, Estim Creat Clear Calc 78.86, Est GFR (MDRD) Non-Af 91, BUN/Creatinine Ratio 30.7 H, Glucose 107 H, Calcium 9.0, Phosphorus 3.3, Magnesium 2.3 H, Total Bilirubin 0.85, AST 47 H, ALT 9, Alkaline Phosphatase 94, Total Protein 6.3, Albumin 3.1 L, Globulin 3.2, Albumin/Globulin Ratio 1.0 Assessment & Plan Assessment/Plan (1) Generalized weakness: PLAN: *Continue all therapies *PT/OT/ST evaluation and treatment *Fall precautions *Reorientation to limitations (2) HTN (hypertension): QUALIFIERS: Hypertension type: primary hypertension Qualified Code(s): I10 - Essential (primary) hypertension PLAN: *Discontinue Norvasc related to peripheral edema *Initiate hydrochlorothiazide 12.5 mg p.o. daily *Lisinopril 5 mg p.o. daily (3) History of Parkinson's disease: PLAN: *Carbidopa/levodopa 25/100 p.o. 3 times daily (4) Constipation: QUALIFIERS: Constipation type: unspecified constipation type Qualified Code(s): K59.00 - Constipation, unspecified PLAN: *MiraLAX 17 g p.o. daily *Senna/docusate 2 tabs p.o. twice daily (5) Acute CVA (cerebrovascular accident): PLAN: *Monitor for mental status changes or weakness (6) Atrial fibrillation: QUALIFIERS: Atrial fibrillation type: unspecified chronic Qualified Code(s): I48.20 - Chronic atrial fibrillation, unspecified PLAN: *Eliquis 5 mg p.o. twice daily *Metoprolol succinate p.o. 50 mg daily Charges/Coding Visit Charges Inpatient E&M: 82120 Init Hosp L2 Documented by User: Dr. Kim Pichardo DO 08/19/25 19:45 HPI - General General Date of Admission: 08/18/25 HPI Narrative TRACI COOPER, is a 75 M who presented to [facility] emergency department on 08/14/2025 with a complaint of worsening weakness and difficulty with ambulation x 3 days prior to presentation to the emergency department. He was found to have a slight elevation in his WBCs at 13 and a total bilirubin of 1.3. CT scan in the emergency department was negative for any acute processes. Patient has history of previous CVAs he was last hospitalized in October 2023 for CVA, , A-fib and on Eliquis, Parkinson's disease, hypertension, bladder cancer with resection on 03/20/2024 And hypothyroidism. He did have an echo in October 2023 which showed stage I diastolic dysfunction with a LVEF of 60%. He has been living alone. It was reported that overnight the patient did have some confusion in which he removed all of his clothing and was laying on top of the sheets naked. Nursing staff was able to intervene and assisted in getting his clothes back on. Patient was cooperative during this time. He does endorses that he does still drive, but not at night because of his vision. He wears corrective lenses. I did review the patient's labs and noted hemoglobin to be 12.9 hematocrit 38.4. His BUN is very slightly elevated at 25 but his creatinine and GFR are within normal limits. BUN/creatinine ratio was slightly elevated at 30.7. He does have an elevated magnesium at 2.3, AST is slightly elevated at 47 and his albumin is decreased at 3.1. Dietitian consult has been ordered. Patient states that he follows with S[facility] Calero in [place] for his Parkinson's. He is on carbidopa/ levodopa for management. Patient states that he does have a history of chronic constipation and states he only has bowel movements approximately 2 times per week. Bowel regiment has been ordered. I did note him to have significant bilateral lower extremity pitting edema. The patient is on Norvasc which may be contributing to his peripheral edema. I did have a discussion with Dr. Pichardo and decision was made to change the patient's Norvasc to hydrochlorothiazide 12.5 mg and continue to monitor blood pressures and kidney function. He currently has bilateral lower extremities wrapped with Williams wrap's. Patient did have a UA while he was being treated for his medical complaints which did show some white blood cells. He was given 2 doses of Rocephin and started on cefdinir. Patient did have a culture sent which did not show any growth on the final report. Will discontinue the cefdinir. Patient denies pain or shortness of breath today. He is alert and oriented x 3. He states that he does not have any children but relies on neighbors or his sister Grupo for assistance when needed. Diet: Regular diet, nursing to monitor I's and O's.. Patient appears to have sundowning tendencies. Continue to monitor with alarms in place. [facility] Medical History (Updated 08/19/25 @ 10:01 by JAYA Muhammad) Loss of hearing Wears glasses Cancer Gout Thyroid disease Bladder disease High cholesterol Shortness of breath on exertion Former smoker History of echocardiogram Cardiology follow-up encounter History of atrial fibrillation HTN (hypertension) Hypothyroid Parkinson disease Home Medications Medication Instructions Recorded Last Taken Type amlodipine 10 mg tablet 10 tab PO DAILY blood pressure 04/19/22 08/13/25 History carbidopa 25 mg-levodopa 100 mg 1 tab PO TID parkinsons 04/19/22 08/14/25 History tablet allopurinol 100 mg tablet 100 mg PO DAILYCM Gout 60 days #60 10/21/23 Unknown Rx tabs lisinopril 5 mg tablet 5 mg PO DAILY blood pressure 60 10/21/23 Unknown Rx days #60 tabs polyethylene glycol 3350 17 17 g PO DAILY constipation #119 06/11/25 08/11/25 Rx gram/dose oral powder (Miralax) grams apixaban 5 mg tablet (Eliquis) 5 mg PO DAILY heart 08/14/25 08/14/25 History levothyroxine 100 mcg tablet 100 mcg PO DAILY disorder of 08/14/25 08/13/25 History thyroid gland metoprolol succinate 50 mg 50 mg PO DAILY heart 08/14/25 08/14/25 History tablet,extended release 24 hr cefdinir 300 mg capsule 300 mg PO BID Antibiotic 08/18/25 Unknown History Allergy/AdvReac Type Severity Reaction Status Date / Time No Known Allergies Allergy Verified 07/15/25 12:43 Surgical History Status post laparoscopic cholecystectomy Social History Smoking Status: Former smoker Results Lab / Micro Data 08/19/25 05:35 08/19/25 05:35 Assessment & Plan Assessment/Plan (1) Generalized weakness: (2) HTN (hypertension): QUALIFIERS: Hypertension type: primary hypertension Qualified Code(s): I10 - Essential (primary) hypertension (3) History of Parkinson's disease: (4) Constipation: QUALIFIERS: Constipation type: unspecified constipation type Qualified Code(s): K59.00 - Constipation, unspecified (5) Acute CVA (cerebrovascular accident): (6) Atrial fibrillation: QUALIFIERS: Atrial fibrillation type: unspecified chronic Qualified Code(s): I48.20 - Chronic atrial fibrillation, unspecified
[2025-08-19 10:00] VITALS: RESP 15; O2SAT 94
--- NOTE | 2025-08-19 11:20 | PCM.RU.PYE ---
Admission Information Primary Diagnosis:: debility Status Changes from Prescreening?: No changes Identified Actual Problem List:: Cognitve Impr/Memory Loss, Bladder Incontinence, Mobility Impaired, Self Care Deficit, Ineffective Communication, Know.Dfct/Disease Process, Know.Dfct of Medicaitons, BP, Hypertension and Alteration-Leisure Activ. Potential Problem List:: DVT, Bleeding, Infection, UTI, Aspiration, Falls, Skin Integrity and Depression Risk of Complications DVT: HENRY Hose and - (Patient is on Eliquis) Bleeding: Monitor Lab Values, Nursing to Teach Precautions for anti-coagulation therapy., Wound, if applicable, to be assessed every shift. and Stroke patients assessed for lethargy or change in status. Infection: Clinical Staff to Monitor for S/S of infection: and S/S of infection include fever, redness, warmth, etc. Urinary Tract Infection: Monitor for frequency, burning, discomfort, or incontinence. and Nursing will obtain urine sample for urinalysis and C&S when ordered. Aspiration: Clinical staff will monitor for coughing, drooling, congestion., Speech will evaluate swallowing and dsyphasia. and Nursing will monitor patient swallowing during meals. Falls: Patient will be evaluated for Fall Precautions and Patient will be placed on Fall Precautions as indicated per protocol. Skin Breakdown: Nursing will assess skin daily using assessment tool. and Nursing will place on Skin Breakdown Precautions as indicated. Pain: Clinical staff will assess patient's pain level per protocol., Medications will be given, if needed, and the pain level reassessed. and Other methods: Massage, distraction, decrease stimulus, etc. used PRN. Plan of Care Patient requires physician specializing in physical medicine and rehab oversight to provide close medical supervision of rehab issues including: Pain Management, Sleep Problems, Bowel and Bladder, Medical and co-morbidity Management, DVT prophylaxis, Rehabilitation Leadership and Coordination of treatment team Patient needs Physical Therapy: For a minimum of 1 hour and At least 5 out of 7 days Patient needs Physical Therapy to improve:: Mobility, Strengthening, Transfers, Stretching, ROM, Endurance, Stairs, Gait and Balance Patient needs Occupational Therapy: For a minimum of 1 hour and At least 5 out of 7 days Patient needs Occupational Therapy to improve ADL's incl.: Eating, Grooming, Bathing, Dressing, Toileting, Toilet transfers, Community Reintegration, Higher functioning activities, Household tasks, Adaptive Equipment, Splinting and Other activities as determined Patient requires speech therapy: For a minimum of 1 hour and At least 5 out of 7 days Patient requires speech therapy for: Swallowing, Cognition, Language Skills and Compensatory Strategies Patient requires 24/ Rehabilitation Nursing for: Pain Issues, Identifying and preventing risk factors, Monitoring and reporting current medical conditions, Assisting with ambulation, transfer, and all ADL's, Teaching patients about disease process and medications, Family teaching, Providing safe environment, Bowel and Bladder Issues, Skin integrity and Medication Management Patient needs Commissioner Of Officials/ Case Management for: Discharge Planning, Arranging Home Equipment or Services and Family Interventions Patient needs Dietary and Nutrition Services for: Adequate Nutrition, Nutritional Supplements and Nutritional Education Goals Goals Patient will remain: free from falls and or injury at time of discharge. Patient will perform bed mobility at: MOD I level of assist. Patient will complete transfers from bed to chair at: MOD I level of assist. Patient will ambulate: 100 feet and with LRD Patient will complete upper body dressing at: MOD I level of assist. Patient will complete lower body dressing at: MOD I level of assist. Patient will complete toilet transfer at: MOD I level of assist. Patient will complete toileting at: MOD I level of assist. Patient will perform bathing at: MOD I level of assist. Patient will perform Tub/Shower transfer at: MOD I level of assist. Patient will complete grooming at: MOD I level of assist. Patient will complete home management skills at: MOD I level of assist. Patient will achieve: - (1 curb step) Patient will have pain level of: of 3 or less Patient's skin will: remain intact Patient will receive: adequate nutrition. Discharge Planning Estimated Length of stay (days): 21 Anticipated D/C Destination: Home
[2025-08-19 16:53] VITALS: BMI 26.9
[2025-08-19 17:27] VITALS: BP 110/82; PULSE 70; RESP 17; TEMP 36.7; O2SAT 95
[2025-08-19 20:53] VITALS: BMI 26.9
[2025-08-19 21:01] VITALS: RESP 16; O2SAT 95
[2025-08-19] MEDS: Mineral Oil/Petrolatum Cr 1.75oz Bottle 1 APPLIC TOPICAL (21:17)
[2025-08-20] MEDS: Mineral Oil/Petrolatum Cr 1.75oz Bottle 1 APPLIC TOPICAL (05:00)
[2025-08-20 05:09] VITALS: BP 112/73; PULSE 81; RESP 17; TEMP 36.3; O2SAT 94
[2025-08-20] MEDS: 0.9% Saline Lock 10 ML Syringe IV (05:13)
[2025-08-20 06:00] VITALS: BMI 26.9
[2025-08-20 10:32] VITALS: RESP 15; O2SAT 96
[2025-08-20] MEDS: APIXABAN 5 MG TABLET PO ×2 (10:55→23:20)
[2025-08-20] MEDS: Senna/Docusate Sodium 1 Tablet 2 TABLET PO ×2 (10:56→23:20)
[2025-08-20 11:16] VITALS: BP 84/49; PULSE 84
[2025-08-20] MEDS: Polyethylene Glycol 3350 17 GM PACKET PO (11:56)
--- NOTE | 2025-08-20 15:55 | CASEMGMT ---
Social Work SW met with pt and initial assessment completed. 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 Pt's goal is to return to this level at discharge. Pt has a sister and brother in law, Amy and River Gutiérrez who are supportive. Pt does not have a HCPOA or living will but pt states that Amy and River are "working on getting these things in order". SW educated pt that SW can assist with completing documents if pt wishes. Pt would like Amy and Diana to continue and denies need for assistance from SW at this time. SW informed pt that if pt is unable to make own decisions, Amy would be legal decision maker (pt not , no children, parents and one sister). Pt is agreeable that this is who he would want as medical decision maker. SW to follow for dc planning. ROSALIA Doherty
[2025-08-20 17:00] VITALS: BMI 26.9
[2025-08-20 17:55] VITALS: BP 107/66; PULSE 76; RESP 16; TEMP 36.6; O2SAT 97
[2025-08-20 22:00] VITALS: RESP 16; O2SAT 98
[2025-08-20 23:00] VITALS: BP 105/61; PULSE 76; RESP 16; TEMP 36.9; O2SAT 98
[2025-08-21 03:28] VITALS: BMI 26.9
[2025-08-21 06:00] VITALS: BP 123/81; PULSE 91; RESP 17; TEMP 36.8; O2SAT 95
[2025-08-21] MEDS: 0.9% Saline Lock 10 ML Syringe IV ×2 (06:26→20:57)
[2025-08-21 06:56] VITALS: O2SAT 97
[2025-08-21 07:50] VITALS: RESP 16; O2SAT 97
[2025-08-21 10:47] VITALS: BP 120/70; PULSE 90
[2025-08-21] MEDS: APIXABAN 5 MG TABLET PO ×2 (10:47→20:52)
[2025-08-21] MEDS: Metoprolol(XL)Succ 50 MG Tablet PO (10:47)
[2025-08-21] MEDS: Senna/Docusate Sodium 1 Tablet 2 TABLET PO ×2 (10:48→20:52)
[2025-08-21] MEDS: Polyethylene Glycol 3350 17 GM PACKET PO (10:48)
--- NOTE | 2025-08-21 13:37 | CASEMGMT ---
Social Work IDT met with patient, sister, AUGUSTUS for Team meeting. Discussed patient's progress in PT/OT/ST/SN/MD. Educated to Medicare approval of 16 days with DC 09/03. Pt's goal is to return home alone. An alternative DC plan may need to be explored as pt lives alone. CHURN DRILLER identified some cognitive deficits, orientation, memory, meds/finances, and speech. AUGUSTUS mentioned [facility] as pt receives disability d/t Parkinson's dx. SW offered to connect pt with [facility] to get further services for DC planning. BRAULIO and AUGUSTUS/sister to meet with SW after Team meeting. Will ReTeam next week and SW will continue to follow for DC planning needs. - BRAULIO met with sister and AUGUSTUS. Discussed [facility] services and connection. AUGUSTUS provided this worker with contact at [facility] office - Tory HERRERA ([phone]) SW to contact Tory to determine what pt is active with currently and what services pt would be eligible for to assist with DC Planning. Family is realistic that pt may not be safe returning home alone. SW educated that [place] could provide services for SENIOR ATTORNEY or ECF, for example. Family appreciative of assistance. SW will continue to follow. Lynne Freeman PUTTY PATCHER RESIDENTIAL MORTGAGE MANAGER
--- NOTE | 2025-08-21 15:54 | PCM.RU.PYE ---
Admission Information Primary Diagnosis:: Debility secondary to Parkinson's disease Status Changes from Prescreening?: No changes Identified Actual Problem List:: Cognitve Impr/Memory Loss, Bladder Incontinence, Alteration in Sleep, Mobility Impaired, Self Care Deficit, Ineffective Communication, Know.Dfct/Disease Process, Know.Dfct of Medicaitons, BP, Hypertension and Alteration-Leisure Activ. Potential Problem List:: DVT, Bleeding, Infection, UTI, Aspiration, Falls, Skin Integrity and Depression Risk of Complications DVT: HENRY Hose and - (Continue apixaban) Bleeding: Monitor Lab Values, Nursing to Teach Precautions for anti-coagulation therapy., Wound, if applicable, to be assessed every shift. and Stroke patients assessed for lethargy or change in status. Infection: Clinical Staff to Monitor for S/S of infection: and S/S of infection include fever, redness, warmth, etc. Urinary Tract Infection: Monitor for frequency, burning, discomfort, or incontinence. and Nursing will obtain urine sample for urinalysis and C&S when ordered. Aspiration: Clinical staff will monitor for coughing, drooling, congestion., Speech will evaluate swallowing and dsyphasia. and Nursing will monitor patient swallowing during meals. Falls: Patient will be evaluated for Fall Precautions and Patient will be placed on Fall Precautions as indicated per protocol. Skin Breakdown: Nursing will assess skin daily using assessment tool. and Nursing will place on Skin Breakdown Precautions as indicated. Pain: Clinical staff will assess patient's pain level per protocol., Medications will be given, if needed, and the pain level reassessed. and Other methods: Massage, distraction, decrease stimulus, etc. used PRN. Goals Goals Patient will remain: free from falls Patient will perform eating at: MOD I level of assist. Patient will perform bed mobility at: MOD I level of assist. Patient will complete transfers from bed to chair at: MOD I level of assist. Patient will ambulate: - (350 feet with least restrictive device at supervision on various surfaces) Patient will complete upper body dressing at: MOD I level of assist. Patient will complete lower body dressing at: MOD I level of assist. (With adaptive equipment as needed) Patient will complete toilet transfer at: MOD I level of assist. Patient will complete toileting at: MOD I level of assist. Patient will perform bathing at: MOD I level of assist. (Upper body bathing independently and lower body bathing at mod I with adaptive equipment as needed) Patient will perform Tub/Shower transfer at: - (Supervision using DME as needed) Patient will complete grooming at: MOD I level of assist. (While standing at the sink) Patient will complete home management skills at: MOD I level of assist. Patient will achieve: - (A flight of stairs with 1 handrail at standby assist to allow access to the basement) Patient will have pain level of: of 3 or less Patient's skin will: remain intact Patient will receive: adequate nutrition. Discharge Planning Pt Prognosis for Sig. Practical Improv. w/in Reasonable Time: Good Estimated Length of stay (days): 21 Anticipated D/C Destination: TBD Was Preadmission Assessment Accurate?: Yes
--- NOTE | 2025-08-21 16:02 | PN_ITS ---
Subjective Subjective Adonis was seen on team rounds today. His brother and [id number] are present in the room. Afebrile VSS -blood pressure over the past 24 hours has ranged from 84/49 to 123/81........... improved with much better oral intake yesterday. Maintaining appropriate oxygen saturation on RA Oral intake - FOOD varies wildly from 25 to 49% to 75 to 100%. Very inconsistent. FLUIDS fair-good if the nurses are constantly reminding him to drink. Discussed with nursing - no problems that need addressed Reviewed the THERAPY notes Medication list reviewed. Adonis tells me that he does not sleep well at night and he gets up multiple times a night to urinate. He tells me that he has had bladder cancer and follows with a urologist. Ever since surgery for the bladder cancer he has had problems with nocturia. Per nursing he was reading the call light approximately every 2 hours to use the urinal which he stated has been his pattern for the past few years. He has had 3 postvoid residuals and they have ranged from 121-196. Adonis denies dysuria. He tells me he feels that he completely empties his bladder. Recent urine culture had no growth. His brother tells me that they brought in a bag of medications that Adonis was supposed to be taking and multiple bottles were not even opened. Question whether he has been compliant with his medications. His brother knows that Adonis takes the allopurinol only as needed when he has joint pain. Family was unaware of significant cognitive dysfunction. They were updated on the results of the Mal cognitive assessment in which he scored only 15 out of a possible 30 points. Adonis has been driving and managing his own meds and finances. He is a vet but, has not been utilizing [employer] services. Objective Data Objective Data Vital Signs: Vital Signs Temp Pulse Resp BP Pulse Ox O2 Del Method 98.3 F 90 16 120/70 97 Room Air 08/21/25 06:00 08/21/25 10:47 08/21/25 07:50 08/21/25 10:47 08/21/25 07:50 08/21/25 07:50 Oxygen Delivery Method Room Air Weight: 187 lb 6.287 oz Body Mass Index (BMI) 26.9 Intake & Output: Intake and Output for Last 24 Hours 08/19/25 08/20/25 08/21/25 23:59 23:59 23:59 Intake Total 1000 / 1000 2170 / 2170 490 / 490 Output Total 900 / 900 1395 / 1395 775 / 775 Balance 100 / 100 775 / 775 -285 / -285 Lab / Micro Data 08/19/25 05:35 08/19/25 05:35 Physical Exam Const alert and no apparent distress Constitutional Narrative: Sitting in the recliner at the bedside and appears comfortable. He is eating his lunch and feeding himself. He is hard of hearing and has had his hearing tested in the past. He is aware that he has hearing loss but, "hasn't got around to getting hearing aids". General Appearance: cooperative Resp normal respiratory effort and clear to auscultation bilaterally Resp Narrative: No conversational dyspnea. No cough. Effort and Inspection: Negative for tachypneic Cardio no murmurs and no gallops Cardio Narrative: Rhythm is regular today however he is having frequent ectopics. He has a history of paroxysmal atrial fibrillation and is on Eliquis. GI normal to inspection, nondistended, normoactive bowel sounds, soft to palpation and non-tender Extremity Extremity Narrative: He has pitting edema of his ankles. This has improved somewhat since admission. Skin Rashes: no rashes Neuro Neuro Narrative: He has significant resting tremors of both hands. He has some muscle rigidity and a slow shuffling gait. Has cognitive deficits.....due to PD? Assessment & Plan Assessment/Plan (1) Debility: (2) Generalized weakness: (3) History of Parkinson's disease: PLAN: Many of his pill containers at home or unopened. I suspect he has not been taking his Sinemet as instructed. He is known to be on compliant with some of his medications per his brother. (4) UTI (urinary tract infection): PLAN: He received a few doses of antibiotic and urine culture was negative. Cedinir was stopped at transfer to acute rehab. (5) HTN (hypertension): QUALIFIERS: Hypertension type: primary hypertension Qualified Code(s): I10 - Essential (primary) hypertension (6) Constipation: QUALIFIERS: Constipation type: unspecified constipation type Q ualified Code(s): K59.00 - Constipation, unspecified (7) Atrial fibrillation: QUALIFIERS: Atrial fibrillation type: unspecified chronic Q ualified Code(s): I48.20 - Chronic atrial fibrillation, unspecified (8) Hypothyroid: QUALIFIERS: Hypothyroidism type: unspecified Qualified Code(s): E 03.9 - Hypothyroidism, unspecified (9) Loss of hearing: QUALIFIERS: Hearing loss type: unspecified Laterality: u nspecified laterality Qualified Code(s): H91.90 - Unspecified hearing loss, unspecified ear (10) Noncompliance: PLAN: With medications. (11) Hyperuricemia: PLAN: May not be taking his allopurinol. Will continue allopurinol 100 mg daily while in the hospital and he will need a follow-up uric acid level in 1 month since he will be taking the medication while supervised in the hospital PLAN: Plan 1. Continue therapy 2. Discontinue hydrochlorothiazide. Left to his own devices he has poor fluid intake. Continue metoprolol XL 50 mg daily and lisinopril 5 mg daily. 3. check an overnight trending pulse ox. 4. Continue with compression wraps and elevation........if the edema persists consider an ECHO since the edema is new. Since I suspect he has not been taking his medications as directed he may have been having PAF with RVR at home and he may have a tachycardia induced CM or worsening diastolic dysfunction? TSH is within normal limits. He also has q hx of bladder cancer so he could be hypercoagulable and have DVT.......denies calf pain and also denies SOB. Pulse ox is normal. 5. will need to see a neurologist following DC from rehab........when he presented to the ER he had his shoes on the wrong feet. CT scan of his head done in the emergency room showed diffuse white matter hypodensities which are nonspecific but likely due to chronic small vessel ischemia. There was parenchymal volume loss consistent with brain atrophy. No CTA was done. MRI was done in October 2023 and showed punctate foci of restricted diffusion in the right posterior sella vellum and multiple foci and small zones of increased T2 flair in the bilateral cerebral white matter. He was diagnosed with an acute lacunar infarct in the right cerebellum. Could he have had another stroke? not visualized on CT brain in the ED. He had a CTA of his head neck in October 2023 that showed no evidence for significant stenosis or occlusion in the carotid or vertebral arteries of the neck. There was a multinodular thyroid goiter present. He has been working still.......now confused......will need to consider doing a repeat CT brain or an MRI. The echocardiogram that was done in October 2023 showed an ejection fraction of 60% with a negative bubble contrast study. There was stage I diastolic dysfunction. He did not have an ECHO this admission and now he has peripheral edema. Family thinks edema is worse since admission to the hospital. He has made some good progress already with therapy. I suspect he was not taking Sinemet as instructed and possibly sx have improved because he is now getting the appropriate medications. Concerned he may have had another stroke but, I am not sure we would do anything different if he did have a stroke since the CTA < 2 years ago showed no significant vascular stenosis. Will add an antiplatelet drug. LDL is only 54 and this is not on a statin. He is not diabetic and BP is within goal. HGBA is 12.2 on Monday. Will check a hemoccult stool. Will need to ere-evaluate cognition prior to DC to make sure he will be safe going home alone. Charges/Coding Visit Charges Inpatient E&M: 46798 Subs Hosp L2
[2025-08-21 16:39] VITALS: BP 118/78; PULSE 70; RESP 16; TEMP 36.8; O2SAT 96
[2025-08-21 17:00] VITALS: BMI 26.9
[2025-08-21] MEDS: Arthritis Pain Compound 60 CLICK TUBE TOPICAL (20:50)
[2025-08-21 22:08] VITALS: PULSE 80; O2SAT 97
[2025-08-21 22:51] LABS: Mucous, Urine 0 SEEN /hpf (<or=2+)
[2025-08-21 22:57] LABS: Color, Urine Yellow (Yellow); Glucose, Dipstick Normal (Normal); Ketone-Dipstick 5 mg/dl (Negative); Leukocyte Esterase-Dipstick 25 /ul (Negative); Nitrite-Dipstick Negative (Negative); Occult Blood-Urine 25 /ul (Negative); Protein-Dipstick 30 mg/dl (Negative); Specific Gravity, Urine 1.025 (1.002-1.030); Urine Bilirubin Dipstick Negative (Negative)
[2025-08-21 23:16] LABS: Red Blood Cells-Urine 0-5 SEEN /hpf (0-5); Squamous Epithelial Cells - UA 0-5 SEEN /hpf (0-5)
[2025-08-22 01:21] VITALS: BMI 26.9
[2025-08-22 06:00] VITALS: BP 117/74; PULSE 80; RESP 16; TEMP 36.3; O2SAT 97
[2025-08-22] MEDS: Arthritis Pain Compound 60 CLICK TUBE TOPICAL ×2 (06:05→21:49)
[2025-08-22 07:45] LABS: Hematocrit 42.0 % (40-54); Hemoglobin 13.9 g/dL (13.0-16.5)
[2025-08-22 07:54] VITALS: BP 117/74; PULSE 80
[2025-08-22] MEDS: Senna/Docusate Sodium 1 Tablet 2 TABLET PO ×2 (07:54→21:50)
[2025-08-22] MEDS: Metoprolol(XL)Succ 50 MG Tablet PO (07:54)
[2025-08-22 08:40] LABS: Uric Acid 7.2 mg/dL (3.5-7.2)
[2025-08-22] MEDS: Polyethylene Glycol 3350 17 GM PACKET PO (09:04)
[2025-08-22] MEDS: APIXABAN 5 MG TABLET PO ×2 (09:04→21:50)
[2025-08-22 13:20] VITALS: BMI 26.9
--- NOTE | 2025-08-22 14:27 | CASEMGMT ---
Social Work SW phoned Ruby [facility]A and Tory Carlos is OOO today. Left for return call. Lynne Freeman WHITTLING ROOM OPERATOR WINDOWS VMWARE ENGINEER
--- NOTE | 2025-08-22 15:35 | PN_ITS ---
Subjective Subjective Afebrile VSS - Maintaining appropriate oxygen saturation on RA Oral intake - FOOD more often than not fair to good. Weight is within what his baseline weight is. FLUIDS good Discussed with nursing -frequent use of the call light to use the urinal. Every 1-2 hours which he states is his normal pattern for the past few years. He does have some urine retention but nothing greater than 300 cc. UA yesterday with 0- 5 WBCs and no bacteria. Reviewed the THERAPY notes and D/W PT. Making good progress. Medication list reviewed. I received and reviewed notes from neurology. MOCA in Jun was . at admission to rehab. Having some hallucinations per nursing documentation. I reviewed the overnight trending pulse ox and he does not desaturate. He has no complaints today. Denies lightheadedness, CP, SOB, cough, N/V/abd pain, dysuria. Objective Data Objective Data Vital Signs: Vital Signs Temp Pulse Resp BP Pulse Ox O2 Del Method FiO2 97.3 F L 80 16 117/74 97 Room Air 21 08/22/25 06:00 08/22/25 07:54 08/22/25 06:00 08/22/25 07:54 08/22/25 06:00 08/22/25 06:00 08/22/25 07:05 Oxygen Delivery Method Room Air Weight: 187 lb 6.287 oz Body Mass Index (BMI) 26.9 Intake & Output: Intake and Output for Last 24 Hours 08/20/25 08/21/25 08/22/25 23:59 23:59 23:59 Intake Total 2170 / 2170 1890 / 1890 740 / 740 Output Total 1395 / 1395 1155 / 1155 575 / 575 Balance 775 / 775 735 / 735 165 / 165 Lab / Micro Data 08/22/25 07:14 08/19/25 05:35 Labs: Laboratory Results - last 24 hr 08/21/25 22:42: Urine Color Yellow, Urine Clarity Clear, Urine pH 5.0, Ur Specific [place] 1.025, Urine Protein 30 H, Urine Glucose (UA) Normal, Urine Ketones 5 H, Urine Occult Blood 25 H, Urine Nitrite Negative, Urine Bilirubin Negative, Urine Urobilinogen Normal, Ur Leukocyte Esterase 25 H, Urine RBC 0-5 SEEN, Urine WBC 0-5 SEEN, Ur Squamous Epith Cells 0-5 SEEN, Urine Bacteria 0 SEEN, Urine Mucus 0 SEEN 08/22/25 07:14: Hgb 13.9, Hct 42.0, Uric Acid 7.2 Physical Exam Const alert and no apparent distress General Appearance: cooperative Exam Limitations: no limitations Resp normal respiratory effort and clear to auscultation bilaterally Resp Narrative: No conversational dyspnea. No cough. Effort and Inspection: able to speak in complete sentences; Negative for tachypneic Cardio no murmurs and no gallops Cardio Narrative: Rhythm is regular today however he is having frequent ectopics. He has a history of paroxysmal atrial fibrillation and is on Eliquis. GI normal to inspection, nondistended, normoactive bowel sounds, soft to palpation and non-tender Assessment & Plan Assessment/Plan (1) Debility: (2) Generalized weakness: (3) History of Parkinson's disease: PLAN: Many of his pill containers at home or unopened. I suspect he has not been taking his Sinemet as instructed. He is known to be on compliant with some of his medications per his brother. (4) UTI (urinary tract infection): PLAN: He received a few doses of antibiotic and urine culture was negative. Cedinir was stopped at transfer to acute rehab. (5) HTN (hypertension): QUALIFIERS: Hypertension type: primary hypertension Qualified Code(s): I10 - Essential (primary) hypertension (6) Constipation: QUALIFIERS: Constipation type: unspecified constipation type Q ualified Code(s): K59.00 - Constipation, unspecified (7) Atrial fibrillation: QUALIFIERS: Atrial fibrillation type: unspecified chronic Q ualified Code(s): I48.20 - Chronic atrial fibrillation, unspecified (8) Hypothyroid: QUALIFIERS: Hypothyroidism type: unspecified Qualified Code(s): E 03.9 - Hypothyroidism, unspecified (9) Loss of hearing: QUALIFIERS: Hearing loss type: unspecified Laterality: u nspecified laterality Qualified Code(s): H91.90 - Unspecified hearing loss, unspecified ear (10) Noncompliance: PLAN: With medications. (11) Hyperuricemia: PLAN: May not be taking his allopurinol. Will continue allopurinol 100 mg daily while in the hospital and he will need a follow-up uric acid level in 1 month since he will be taking the medication while supervised in the hospital PLAN: Plan 1. Continue therapy 2. Decrease metoprolol to 25 mg daily 3. Hold lisinopril if the systolic is less than 110 4. Repeat orthostatics on Monday Charges/Coding Visit Charges Inpatient E&M: 65237 Subs Hosp L1
[2025-08-22 16:42] VITALS: BP 71/44; BP 80/49; BP 99/61; PULSE 70; PULSE 78; PULSE 81
[2025-08-22 17:18] VITALS: BP 99/61; PULSE 65; RESP 16; TEMP 36.3; O2SAT 98
[2025-08-23] MEDS: Arthritis Pain Compound 60 CLICK TUBE TOPICAL ×2 (05:14→20:52)
[2025-08-23 05:21] VITALS: BP 137/74; PULSE 84; RESP 18; TEMP 36.8; O2SAT 96
[2025-08-23] MEDS: Polyethylene Glycol 3350 17 GM PACKET PO (08:13)
[2025-08-23] MEDS: Senna/Docusate Sodium 1 Tablet 2 TABLET PO ×2 (08:13→20:52)
[2025-08-23] MEDS: APIXABAN 5 MG TABLET PO ×2 (08:13→20:52)
[2025-08-23 10:57] VITALS: BP 117/71; PULSE 73
[2025-08-23] MEDS: Metoprolol(XL)Succ 25 MG Tablet PO (10:57)
[2025-08-23] MEDS: 0.9% Saline Lock 10 ML Syringe IV ×2 (10:59→20:52)
[2025-08-23 12:22] VITALS: BMI 26.9
[2025-08-23 17:03] VITALS: BP 133/66; PULSE 74; RESP 17; TEMP 36.6; O2SAT 97
[2025-08-23 23:16] VITALS: BMI 26.9
[2025-08-24] MEDS: Arthritis Pain Compound 60 CLICK TUBE TOPICAL ×2 (04:43→20:16)
[2025-08-24 04:58] VITALS: BP 131/86; PULSE 75; RESP 16; TEMP 36.8; O2SAT 98
[2025-08-24 09:22] VITALS: PULSE 83
[2025-08-24] MEDS: Metoprolol(XL)Succ 25 MG Tablet PO (09:22)
[2025-08-24] MEDS: Senna/Docusate Sodium 1 Tablet 2 TABLET PO ×2 (09:23→20:17)
[2025-08-24] MEDS: Polyethylene Glycol 3350 17 GM PACKET PO (09:23)
[2025-08-24] MEDS: APIXABAN 5 MG TABLET PO ×2 (09:24→20:16)
[2025-08-24 15:17] VITALS: BMI 26.9
[2025-08-24] MEDS: 0.9% Saline Lock 10 ML Syringe IV ×2 (17:04→20:18)
[2025-08-24 17:20] VITALS: BP 136/81; PULSE 79; RESP 16; TEMP 36.9; O2SAT 97
[2025-08-24 20:15] VITALS: BMI 26.9
[2025-08-25] MEDS: Arthritis Pain Compound 60 CLICK TUBE TOPICAL ×2 (06:02→20:52)
[2025-08-25 06:04] VITALS: BP 137/85; PULSE 59; RESP 17; TEMP 36.5; O2SAT 97
[2025-08-25 09:05] VITALS: BP 137/85; PULSE 59
[2025-08-25] MEDS: Senna/Docusate Sodium 1 Tablet 2 TABLET PO ×2 (09:05→20:52)
[2025-08-25] MEDS: Polyethylene Glycol 3350 17 GM PACKET PO (09:05)
[2025-08-25] MEDS: Metoprolol(XL)Succ 25 MG Tablet PO (09:05)
[2025-08-25] MEDS: APIXABAN 5 MG TABLET PO ×2 (09:06→20:52)
--- NOTE | 2025-08-25 09:44 | PCM.PROGNOTE ---
Subjective Subjective Afebrile VSS -blood pressure over the weekend has ranged from 117/71 to 137/85 (higher in the mornings). The heart rate has ranged from 59-79. Maintaining appropriate oxygen saturation on RA Oral intake - FOOD good FLUIDS improving Discussed with nursing - no problems that need addressed Reviewed the THERAPY notes Medication list reviewed. Adonis is a poor historian. He can not tell me how often he gets up at night to urinate. He denies lightheadedness. Orthostatics are + today but, the systolic standing is 98. It was 70 last week. He is taking better fluids now. Denies CP, SOB, N/V/dysuria, calf pain. He is sitting in the recliner at 6the bedside and he does not look to be in any distress. I observed him walking and he is walking with a better pace and reciprocal stepping with a FWW. Objective Data Objective Data Vital Signs: Vital Signs Temp Pulse Resp BP Pulse Ox O2 Del Method FiO2 97.7 F L 59 L 17 137/85 H 97 Room Air 21 08/25/25 06:04 08/25/25 09:05 08/25/25 06:04 08/25/25 09:05 08/25/25 06:04 08/25/25 06:04 08/22/25 07:05 Oxygen Delivery Method Room Air Weight: 187 lb 6.287 oz Body Mass Index (BMI) 26.9 Intake & Output: Intake and Output for Last 24 Hours 08/23/25 08/24/25 08/25/25 23:59 23:59 23:59 Intake Total 1400 / 1400 1470 / 1470 570 / 570 Output Total 950 / 950 1100 / 1100 600 / 600 Balance 450 / 450 370 / 370 -30 / -30 Lab / Micro Data 08/22/25 07:14 08/19/25 05:35 Physical Exam Const alert and no apparent distress General Appearance: cooperative HEENT HEENT Narrative: MM are more moist today Resp clear to auscultation bilaterally Resp Narrative: No conversational dyspnea. No cough. Effort and Inspection: able to speak in complete sentences; Negative for tachypneic Cardio no murmurs and no gallops Cardio Narrative: No significant ectopy today. GI normal to inspection, nondistended, normoactive bowel sounds, soft to palpation and non-tender GI Narrative: No guarding with palpation. Neuro Neuro Narrative: Still with moderate to severe resting tremors of both hands and some muscle rigidity. No dyskinetic movements. Psych cooperative Psych Narrative: pleasant, no agitation, poor memory and poor historian. Has a difficult time answering direct questions. Assessment & Plan Assessment/Plan (1) Debility: (2) Generalized weakness: (3) History of Parkinson's disease: (4) HTN (hypertension): QUALIFIERS: Hypertension type: primary hypertension Qualified Code(s): I10 - Essential (primary) hypertension (5) Constipation: QUALIFIERS: Constipation type: unspecified constipation type Qualified Code(s): K59.00 - Constipation, unspecified (6) Atrial fibrillation: QUALIFIERS: Atrial fibrillation type: unspecified chronic Qualified Code(s): I48.20 - Chronic atrial fibrillation, unspecified (7) Hypothyroid: QUALIFIERS: Hypothyroidism type: unspecified Qualified Code(s): E03.9 - Hypothyroidism, unspecified (8) Loss of hearing: QUALIFIERS: Hearing loss type: unspecified Laterality: unspecified laterality Qualified Code(s): H91.90 - Unspecified hearing loss, unspecified ear (9) Noncompliance: (10) Hyperuricemia: PLAN: Plan 1. Continue therapy 2. Check orthostatic vital signs today - mildly +.....sys dropped from 122 to 98 but, he denied lightheadedness. Hold off on Midodrine for orthostatic hypotension. 3. CBC and BMP in the a.m. 4. The uric acid is 7.2......... if the CBC is stable we will likely increase to 200 mg daily. The goal is to get it less than 6 since he has acute gouty arthritis at times. 5. Palliative care consult. Suspect he has not been compliant with his medications at home. Destination at OR still not clear. 6. I left a message asking Daniella Vang CASH APPLICATION REPRESENTATIVE (she sees Adonis for PD) 7. Ask nursing to keep track of how often he gets up at night to urinate. It looks like he urinated at 11:45 PM last night and then again at 0300 and then at 0600. He generally only goes 100-200 cc at a time. UA on 08/21 was negative for bacteria and only had 0-5 WBC's. He retains urine but, not > 200. Hesitate to start a medication for overactive bladder. will check a PSA. The urinary frequency and urgency are more likely than not multifactorial. He has had bladder surgery in the past to remove cancer, he has Parkinson's disease, suspect he has BPH......will need to see a urologist to discuss treatment. If the PSA is normal may try Desmopressin at HS.........would need to check a BMP 5 days after initiating. 8. discussed on rounds with the TEAM....may be a good candidate for assisted living. Charges/Coding Visit Charges Inpatient E&M: 21582 Subs Hosp L1
[2025-08-25 10:08] VITALS: BP 120/72; BP 122/76; BP 98/71; PULSE 74; PULSE 77; PULSE 86
--- NOTE | 2025-08-25 10:15 | CON.PCM.PA_ITS ---
[facility] Medical History Hyperuricemia Acute cholecystitis Loss of hearing Wears glasses Cancer Gout Thyroid disease Bladder disease High cholesterol Shortness of breath on exertion Former smoker History of echocardiogram Cardiology follow-up encounter History of atrial fibrillation HTN (hypertension) Hypothyroid Parkinson disease Home Medications Medication Instructions Recorded Last Taken Type amlodipine 10 mg tablet 10 tab PO DAILY blood pressu re 04/19/22 08/13/25 History carbidopa 25 mg-levodopa 100 mg 1 tab PO TID parkinson s 04/19/22 08/14/25 History tablet allopurinol 100 mg tablet 100 mg PO DAILYCM Gout 60 da ys #60 10/21/23 Unknown Rx tabs lisinopril 5 mg tablet 5 mg PO DAILY blood pressure 60 10/21/23 Unknown Rx days #60 tabs polyethylene glycol 3350 17 17 g PO DAILY constipation #119 06/11/25 08/11/25 Rx gram/dose oral powder (Miralax) grams apixaban 5 mg tablet (Eliquis) 5 mg PO DAILY heart 08/14/25 History levothyroxine 100 mcg tablet 100 mcg PO DAILY disorder of 08/14/25 08/13/25 History thyroid gland metoprolol succinate 50 mg 50 mg PO DAILY heart 08/14/25 History
--- NOTE | 2025-08-25 10:15 | PCM.CONS.P ---
[facility] Medical History Hyperuricemia Acute cholecystitis Loss of hearing Wears glasses Cancer Gout Thyroid disease Bladder disease High cholesterol Shortness of breath on exertion Former smoker History of echocardiogram Cardiology follow-up encounter History of atrial fibrillation HTN (hypertension) Hypothyroid Parkinson disease Home Medications Medication Instructions Recorded Last Taken Type amlodipine 10 mg tablet 10 tab PO DAILY blood pressure 04/19/22 08/13/25 History carbidopa 25 mg-levodopa 100 mg 1 tab PO TID parkinsons 04/19/22 08/14/25 History tablet allopurinol 100 mg tablet 100 mg PO DAILYCM Gout 60 days #60 10/21/23 Unknown Rx tabs lisinopril 5 mg tablet 5 mg PO DAILY blood pressure 60 10/21/23 Unknown Rx days #60 tabs polyethylene glycol 3350 17 17 g PO DAILY constipation #119 06/11/25 08/11/25 Rx gram/dose oral powder (Miralax) grams apixaban 5 mg tablet (Eliquis) 5 mg PO DAILY heart 08/14/25 08/14/25 History levothyroxine 100 mcg tablet 100 mcg PO DAILY disorder of 08/14/25 08/13/25 History thyroid gland metoprolol succinate 50 mg 50 mg PO DAILY heart 08/14/25 08/14/25 History tablet,extended release 24 hr cefdinir 300 mg capsule 300 mg PO BID Antibiotic 08/18/25 Unknown History Allergy/AdvReac Type Severity Reaction Status Date / Time No Known Allergies Allergy Verified 07/15/25 12:43 Surgical History Status post laparoscopic cholecystectomy Social History Smoking Status: Former smoker ROS Constitutional Constitutional: Reports poor appetite and weakness Eyes Eyes: Reports as per HPI ENT HEENT: Reports as per HPI Cardiovascular Cardiovascular: Reports dizziness and other Details: Occasional dizziness Respiratory/Chest Respiratory/Chest: Reports as per HPI Gastrointestinal Gastrointestinal: Reports as per HPI Genitourinary Genitourinary: Reports dribbling Musculoskeletal Musculoskeletal: Reports joint pain Integumentary Integumentary: Reports as per HPI Neurologic Neurologic: Reports abnormal movements Psychiatric Psychiatric: Reports as per HPI Endocrine Endocrinology: Reports as per HPI Hematologic/Lymphatic Hematologic/Lymphatic: Reports as per HPI Allergic/Immunologic Allergic/Immunologic: Reports as per HPI Physical Exam Const alert and oriented x3 Constitutional Narrative: Patient is intermittently confused General Appearance: cooperative Orientation / Consciousness: confused HEENT normocephalic Eyes Eyes Narrative: Wears corrective lenses Neck General: trachea midline Lymph Lymphatic: no lymphadenopathy noted Resp normal respiratory effort and normal air movement Cardio regular rate Rhythm: abnormal rhythm GI normal to inspection, nondistended, normoactive bowel sounds, soft to palpation, non-tender and non-distended Extremity normal capillary refill Skin no rashes or lesions noted Neuro Neuro Narrative: Bilateral upper extremity tremors Motor Exam: general weakness Psych Mood & Affect: flat affect Charges/Coding Palliative Care Palliative Care: 17445 New Pt Consult 80+ min HPI Current admission Current Code Status: full code Associated Diagnosis: Parkinson's and gouty arthritis Consult Data Date of Consult: 08/25/25 Location of consult: [facility] Reason for referral: goals of care Referral source: Dr. Pichardo Palliative care diagnosis (Summary list): FTT, gouty arthritis, Parkinson's, medication no compliance Palliative care services/treatment (Accepted, as consult): accepted Case discussed with referring provider: outpatient palliative and possible [facility] referral HPI Narrative HPI Narrative: PAIN ASSESSMENT- denies Prior to meeting with the patient at bedside I reviewed labs and documentation since I last saw the patient as a medical patient for inpatient rehab. I introduced myself as part of the palliative care team in which he voluntarily excepted our services. Concern is for the patient scoring a 15 out of 30 on the Mal cognition test indicating moderate cognitive dysfunction. It is believed that the patient forgets to take his medications and he only takes his allopurinol "when he is having a flareup." He does have a uric acid of 7.2 and gouty arthritis. He may lack the insight into the importance of taking his medication regularly. He does have significant Parkinson's disease with bilateral hand tremors. I feel that the patient would benefit from outpatient palliative care services which the patient is agreeable to. He does have a life expectancy greater than 18 months. Will provide him choice of agencies that are able to meet his needs. Patient did state "they are not going to make me do anything I do not want to do, are they?" I asked him what he was referring to and he stated "take me out of my home and make me come to the hospital." I explained to Traci that they are there to assist him with symptom management and to provide resources as well as an extra layer of support once he is discharged to home. He stated agreement with outpatient palliative services. There is concern about him going home independently. Patient would benefit from assisted living facility if he were in agreement. All questions were answered. I did update Dr. Webb and jaiden. Social work about patient wishes. per in patient rehab H&P:"TRACI COOPER, is a 75 M who presented to [facility] emergency department on 08/14/2025 with a complaint of worsening weakness and difficulty with ambulation x 3 days prior to presentation to the emergency department. He was found to have a slight elevation in his WBCs at 13 and a total bilirubin of 1.3. CT scan in the emergency department was negative for any acute processes. Patient has history of previous CVAs he was last hospitalized in October 2023 for CVA, , A-fib and on Eliquis, Parkinson's disease, hypertension, bladder cancer with resection on 03/20/2024 And hypothyroidism. He did have an echo in October 2023 which showed stage I diastolic dysfunction with a LVEF of 60%. He has been living alone. It was reported that overnight the patient did have some confusion in which he removed all of his clothing and was laying on top of the sheets naked. Nursing staff was able to intervene and assisted in getting his close back on. Patient was cooperative during this time. He does endorses that he does still drive, but not at night because of his vision. He wears corrective lenses. I did review the patient's labs and noted hemoglobin to be 12.9 hematocrit 38.4. His BUN is very slightly elevated at 25 but his creatinine and GFR are within normal limits. BUN/creatinine ratio was slightly elevated at 107. He does have an elevated magnesium at 2.3, AST is slightly elevated at 47 and his albumin is decreased at 3.1. Dietitian consult has been ordered. Patient states that he follows with Sade Calero in [place] for his Parkinson's. He is on carbidopa/ levodopa for management. Patient states that he does have a history of chronic constipation and states he only has bowel movements approximately 2 times per week. Bowel regiment has been ordered. I did note him to have significant bilateral lower extremity pitting edema. The patient is on Norvasc which may be contributing to his peripheral edema. I did have a discussion with Dr. Pichardo and decision was made to change the patient's Norvasc to hydrochlorothiazide 12.5 mg and continue to monitor blood pressures and kidney function. He currently has bilateral lower extremities wrapped with Williams wrap's. Patient did have a UA while he was being treated for his medical complaints which did show some white blood cells. He was given 2 doses of Rocephin and started on cefdinir. Patient did have a culture sent which did not show any growth on the final report. Will discontinue the cefdinir. Patient denies pain or shortness of breath today. He is alert and oriented x 3. He states that he does not have any children but relies on neighbors or his sister Grupo for assistance when needed. Diet: Regular diet, nursing to monitor I's and O's.. Patient appears to have sundowning tendencies. Continue to monitor with alarms in place. " *This note was generated with [employer] dictation software. It may contain incorrect words, spelling, and punctuation that were not noted in checking the note before signing. Palliative Assessment Advanced Directive - Current Admission Advance Directive: Advance Directive ON ADMISSION - REFERENCE Do you have a Healthcare No 08/20/25 15:46 Living Will? Do you have a Healthcare Power No 08/20/25 15:46 of Puffer Tender? Do You Want Additional Declined 08/20/25 15:46 Information on Advanced Directives or Healthcare Proxy/DPOA comments: Patient has no formal POA Psychosocial/Spiritual Information Living situation/Marital status: Patient lives independently in a mobile home Geographic location: [place] Supports: Family Nondenominational/Evelin or spiritual preference: None Spiritual distress: Denies Prior functional status: Patient was living independently and driving although he most likely should not have been driving prior to admission Assistive devices at home: None Cultrual issues: Patient would benefit from assisted living if he were in agreement. Information about the patient as a person: Patient likes to watch TV. Symptoms Dyspnea symptoms: None Constipation symptoms: Mild Nausea symptoms: None Vomiting symptoms: None Depression symptoms: None Anorexia symptoms: Mild Cough symptoms: None Insomnia symptoms: Mild Diarrhea symptoms: None Fatigue symptoms: Moderate Weakness symptoms: Moderate Confusion symptoms: Moderate Objective Data Objective Data Vital Signs: Vital Signs Temp Pulse Resp BP Pulse Ox O2 Del Method FiO2 97.7 F L 77 17 122/76 H 97 Room Air 21 08/25/25 06:04 08/25/25 10:08 08/25/25 06:04 08/25/25 10:08 08/25/25 06:04 08/25/25 06:04 08/22/25 07:05 Oxygen Delivery Method Room Air Weight: 187 lb 6.287 oz Body Mass Index (BMI) 26.9 Intake & Output: Intake and Output for Last 24 Hours 08/23/25 08/24/25 08/25/25 23:59 23:59 23:59 Intake Total 1400 / 1400 1470 / 1470 570 / 570 Output Total 950 / 950 1100 / 1100 600 / 600 Balance 450 / 450 370 / 370 -30 / -30 Lab / Micro Data Attestation: I reviewed the patient's lab results. Lab results narrative: Last uric acid is 7.2 and elevated 08/22/25 07:14 08/19/25 05:35 Impressions & Recommendations Patient & Family Issues discussed with the patient and family: Goals of care Patient goal: Patient is open to outpatient palliative care services and wants to go home Family goal: No family at bedside Ethical & Legal Ethical and legal: Patient has no POA Impressions Impressions: I do feel that the patient lacks insight and able to make good decisions Recommentation Palliative recommendations: Patient would benefit from assisted living and outpatient palliative care services Encouter Achieved as a result of this Palliative Care Encounter: [ [id number]] minutes were spent in total for this visit which consisted, primarily of counseling and education dealing with the complex and emotionally intense issues of symptom management and palliative care in the setting of serious and potentially life-threatening illness. Review of documentation, labs and radiological studies. Patient/family had the opportunity to ask questions Plan (1) Debility: (2) Noncompliance: (3) UTI (urinary tract infection): (4) Generalized weakness: (5) Atrial fibrillation: QUALIFIERS: Atrial fibrillation type: unspecified chronic Qualified Code(s): I48.20 - Chronic atrial fibrillation, unspecified (6) History of Parkinson's disease: (7) Goals of care, counseling/discussion: (8) Palliative care encounter: PLAN: Plan *Continue all therapies *Medical management per primary teams *Patient would benefit from community assistance such as area on aging and Meals on Wheels *Referral to outpatient palliative care services *Patient would benefit from medication set up on a weekly basis or medications in "bubble packs" from pharmacy. *Alarm for reminders to take medications *Patient would benefit from assisted living
[2025-08-25 13:28] VITALS: BMI 26.9
[2025-08-25] MEDS: 0.9% Saline Lock 10 ML Syringe IV (14:20)
--- NOTE | 2025-08-25 16:46 | CASEMGMT ---
Addendum entered by Lynne Freeman 08/26/25 14:36: SW left list of SNFs in pt's room, along with palliative care agencies, as Palliative BAGGAGE INSPECTOR informed this worker pt/family agreed to palliative care at [place]. Addendum entered by Lynne Freeman 08/26/25 09:50: [facility] but [facility] d[facility]t [place]. Will continue to attempt. Original Note: Social Work AUGUSTUS and sister presented to this worker's office with updates on meeting with Tory HERRERA. Tory stated pt is 100% service connected and could qualify for CHIEF PSYCHOLOGY, home modifications and SNF assistance. AUGUSTUS provided detailed explanations and asked several follow up questions. BRAULIO provided active listening and answered questions to ability. BRAULIO continued to reiterate progress from therapy will be provided at this week's Team meeting and will better assess pt's needs for [place]. AUGUSTUS stated pt could potentially come to their home but ti is a two story home and unsure about the ledge for their WIS. BRAULIO reiterated that information will be shared by therapists at Team meeting. Though, pt is not able to return home alone. Thus, options would be to AUGUSTUS home or SNF. BRAULIO provided list of SNFs in preferred geographical area, INN with pt’s insurance, including quality and resource data via [employer] and indicated those that are [facility]N with [facility]. SW to contact Tory HERRERA to confirm details. BRAULIO educated to skilled Medicare benefit as Medicare would be primary payor until LTC is needed, [facility] would potentially cover the costs. BRAULIO explained the home [facility] services would take time to implement. AUGUSTUS expressed understanding. BRAULIO will continue to follow. Lynne BARAJASW
[2025-08-25 17:30] VITALS: BP 100/65; PULSE 77; RESP 17; TEMP 36.5; O2SAT 97
[2025-08-26 01:49] VITALS: BMI 26.9
[2025-08-26] MEDS: Arthritis Pain Compound 60 CLICK TUBE TOPICAL ×2 (05:22→22:18)
[2025-08-26 05:45] VITALS: BP 141/78; PULSE 62; RESP 14; TEMP 36.2; O2SAT 99
[2025-08-26 06:20] LABS: Hematocrit 42.4 % (40-54); Hemoglobin 13.7 g/dL (13.0-16.5); Immature Granulocytes Count 0.040 X10^3/uL (0.0-0.0); Mean Corp Hgb Conc 32.3 g/dL (32-36); Mean Corpuscular Volume 84.0 fL (80-94); Mean Platelet Vol. 9.0 fl (6.2-12.0); NRBC Flagged by Analyzer 0 % (0-5); Platelet Count 373 K/mm3 (150-450); RBC Distribution Width CV 13.6 % (11.6-14.6); RBC Distribution Width SD 41.9 fl (35.1-43.9); Red Blood Count 5.05 M/mm3 (4.6-6.2); White Blood Count 6.3 K/mm3 (4.4-11.0)
[2025-08-26 07:20] LABS: Anion Gap 10 (5-15); BUN 21 mg/dL (4-19); BUN/Creat Ratio 22.9 RATIO (10-20); Calcium,Total 8.8 mg/dL (7.6-11.0); Carbon Dioxide 24.4 mmol/L (21.0-32.0); Chloride 105 mmol/L (98-108); Estimated Creatinine Clearance 69.43 ml/min (50-250); Glucose 89 mg/dL (70-99); PSA,Total - Annual Screen 4.30 ng/mL (0.02-4.00); Potassium 4.0 mmol/L (3.3-5.1)
[2025-08-26] MEDS: Senna/Docusate Sodium 1 Tablet 2 TABLET PO ×2 (08:56→22:18)
[2025-08-26] MEDS: APIXABAN 5 MG TABLET PO ×2 (08:56→22:18)
[2025-08-26] MEDS: Polyethylene Glycol 3350 17 GM PACKET PO (08:56)
[2025-08-26 08:58] VITALS: BP 99/58; PULSE 79
[2025-08-26] MEDS: Metoprolol(XL)Succ 25 MG Tablet PO (08:58)
--- NOTE | 2025-08-26 14:07 | PN_ITS ---
Subjective Subjective Afebrile VSS - Maintaining appropriate oxygen saturation on RA Oral intake - FOOD good FLUIDS fair yesterday....... had 1260 p.o. Discussed with nursing - he requested to use the urinal 9 times last night. Goes 100cc at a time. Has an appt with urology in October........follow up for bladder cancer. Reviewed the THERAPY notes Medication list reviewed. No complaints other than poor sleep related to frequent nocturia. Denies lightheadedness, palpitations, chest pain, shortness of breath, dysuria. He urinates much more at night than during the day. Only goes small amounts. Wondering if he just has insomnia and when he wakes up he needs to use the RR? I noticed today that the resting tremors got a lot worse when we started talking about assisted living. Objective Data Objective Data Vital Signs: Vital Signs Temp Pulse Resp BP Pulse Ox O2 Del Method FiO2 97.1 F L 79 14 99/58 L 99 Room Air 21 08/26/25 05:45 08/26/25 08:58 08/26/25 05:45 08/26/25 08:58 08/26/25 05:45 08/26/25 05:45 08/22/25 07:05 Oxygen Delivery Method Room Air Weight: 187 lb 6.287 oz Body Mass Index (BMI) 26.9 Intake & Output: Intake and Output for Last 24 Hours 08/24/25 08/25/25 08/26/25 23:59 23:59 23:59 Intake Total 1470 / 1470 1260 / 1520 650 / 650 Output Total 1100 / 1100 850 / 1075 875 / 875 Balance 370 / 370 410 / 445 -225 / -225 Lab / Micro Data 08/26/25 06:14 08/26/25 06:14 Labs: Laboratory Results - last 24 hr 08/26/25 06:14: WBC 6.3, RBC 5.05, Hgb 13.7, Hct 42.4, MCV 84.0, MCH 27.1, MCHC 32.3, RDW Std Deviation 41.9, RDW Coeff of Navneet 13.6, Plt Count 373, MPV 9.0, Immature Gran % (Auto) 0.600, Neut % (Auto) 63.7, Lymph % (Auto) 23.3, [place] % (Auto) 9.4, Eos % (Auto) 1.9, Baso % (Auto) 1.1 H, Absolute Neuts (auto) 4.0, Absolute Lymphs (auto) 1.46, Nucleated RBC % 0, Sodium 139, Potassium 4.0, Chloride 105, Carbon Dioxide 24.4, Anion Gap 10, BUN 21 H, Creatinine 0.92, Estim Creat Clear Calc 69.43, Est GFR (MDRD) Non-Af 85, BUN/Creatinine Ratio 22.9 H, Glucose 89, Calcium 8.8, PSA Screen 4.30 H Micro: Microbiology 08/26/25 08:15 Stool Stool Occult Blood (RAJENDRA) - Final Physical Exam Const alert and no apparent distress General Appearance: cooperative HEENT HEENT Narrative: MM are more moist today Resp clear to auscultation bilaterally Resp Narrative: No conversational dyspnea. No cough. Effort and Inspection: able to speak in complete sentences; Negative for tachypneic Cardio no murmurs and no gallops Cardio Narrative: No significant ectopy today. GI normal to inspection, nondistended, normoactive bowel sounds, soft to palpation and non-tender GI Narrative: No guarding with palpation. Extremity Extremity Narrative: Has some ankle edema but, no pretibial edema. Sits in the recliner all day with legs dependent. General Extremity: edema Skin Rashes: no rashes Neuro Neuro Narrative: Still with moderate to severe resting tremors of both hands and some muscle rigidity. No dyskinetic movements. Resting tremor gets worse when he is anxious and talking about hard things.....like moving to assisted living. Psych cooperative Psych Narrative: pleasant, no agitation, poor memory and poor historian. Has a difficult time answering direct questions. Assessment & Plan Assessment/Plan (1) Debility: (2) Generalized weakness: (3) History of Parkinson's disease: (4) HTN (hypertension): QUALIFIERS: Hypertension type: primary hypertension Qualified Code(s): I10 - Essential (primary) hypertension (5) Constipation: QUALIFIERS: Constipation type: unspecified constipation type Q ualified Code(s): K59.00 - Constipation, unspecified (6) Atrial fibrillation: QUALIFIERS: Atrial fibrillation type: unspecified chronic Q ualified Code(s): I48.20 - Chronic atrial fibrillation, unspecified (7) Hypothyroid: QUALIFIERS: Hypothyroidism type: unspecified Qualified Code(s): E 03.9 - Hypothyroidism, unspecified (8) Loss of hearing: QUALIFIERS: Hearing loss type: unspecified Laterality: u nspecified laterality Qualified Code(s): H91.90 - Unspecified hearing loss, unspecified ear (9) Noncompliance: (10) Hyperuricemia: (11) Orthostatic hypotension: PLAN: Suspect secondary to Parkinson's disease/autonomic dysfunction. (12) Cognitive dysfunction: PLAN: Developing Parkinson's dementia? Or is the decline in the MoCA secondary to presbycusis and him not understanding what is being asked. Will need to repeat cognitive testing prior to discharge (13) Insomnia: (14) Nocturia: PLAN: due to PD? due to anxiety/depression? BPH? bladder abnormality due to Bladder cancer? May be multifactorial PLAN: Plan 1. Continue therapy 2. Start trazodone 50 mg at bedtime - if he fails this after 6-12 weeks consider Desmopressin BUT, will need to monitor closely for hyponatremia 3. I talked with the TRACTOR TRAILER M[employer]ING [employer]AN DRIVER he follows up with. She reviewed the last neuro note. Recommended increasing the Sinemet to 4 X's a day. 4. We talked about assisted living and he does not think he is ready for that yet. We talked about how PD is progressive and his cognitive function is declining. He also now has orthostatic hypotension. He has been non-compliant with meds at home and no one to supervise him. I told him with the cognitive decline he will not be able to drive at [place]. He is OK with this and thinks he will have to give up working. Will need more discussion with family about how we can best support Adonis and will he be safe at home without supervision. 5. appreciate the palliative care consult. 6. Making good progress with therapy since he is taking Sinemet as instructed and he is more active. 7. Check orthostatics in the AM. Charges/Coding Visit Charges Inpatient E&M: 39982 Subs Hosp L1
[2025-08-26 14:38] VITALS: BMI 26.9
[2025-08-26 16:58] VITALS: BP 128/72; PULSE 16; RESP 16; TEMP 36.5; O2SAT 97
[2025-08-26] MEDS: Lidocaine Jelly 2% 20 ML Syringe (URO-JET) 1 APPLIC TOPICAL (17:54)
[2025-08-26 18:03] LABS: Mucous, Urine 0 SEEN /hpf (<or=2+)
[2025-08-26 18:51] LABS: Color, Urine Yellow (Yellow); Glucose, Dipstick Normal (Normal); Ketone-Dipstick 5 mg/dl (Negative); Leukocyte Esterase-Dipstick Negative /ul (Negative); Nitrite-Dipstick Negative (Negative); Occult Blood-Urine 150 /ul (Negative); Protein-Dipstick 15 mg/dl (Negative); Specific Gravity, Urine 1.020 (1.002-1.030); Urine Bilirubin Dipstick Negative (Negative)
[2025-08-26 22:33] LABS: Red Blood Cells-Urine 10-25 SEEN /hpf (0-5); Squamous Epithelial Cells - UA 0-5 SEEN /hpf (0-5)
[2025-08-27 01:42] VITALS: BMI 26.9
[2025-08-27] MEDS: Arthritis Pain Compound 60 CLICK TUBE TOPICAL ×2 (05:42→20:48)
[2025-08-27 05:51] VITALS: BP 134/87; PULSE 71; RESP 16; TEMP 36.7; O2SAT 96; BMI 26.8
[2025-08-27 07:47] VITALS: PULSE 71
[2025-08-27] MEDS: Polyethylene Glycol 3350 17 GM PACKET PO (07:47)
[2025-08-27] MEDS: Senna/Docusate Sodium 1 Tablet 2 TABLET PO ×2 (07:47→20:50)
[2025-08-27] MEDS: Metoprolol(XL)Succ 25 MG Tablet PO (07:47)
[2025-08-27] MEDS: APIXABAN 5 MG TABLET PO ×2 (07:47→20:50)
[2025-08-27 08:00] VITALS: BP 110/80; BP 131/94; BP 139/83; PULSE 113; PULSE 72; PULSE 74
--- NOTE | 2025-08-27 09:38 | PN_ITS ---
Subjective Subjective Afebrile VSS - Maintaining appropriate oxygen saturation on RA Oral intake - FOOD good FLUIDS fair yesterday....... . Discussed with nursing - he slept better last night with the administration of Trazodone. He did not wake up until 0300 to use the urinal. Has an appt with urology in October........follow up for bladder cancer. Reviewed the THERAPY notes Medication list reviewed. No complaints this morning. States that he slept better last night and he still feels a bit "sleepy". Denies pain, lightheadedness, palpitations, chest pain, shortness of breath, dysuria. Tremors were notably better this morning Objective Data Objective Data Vital Signs: Vital Signs Temp Pulse Resp BP Pulse Ox O2 Del Method FiO2 98.0 F 74 16 139/83 H 96 Room Air 21 08/27/25 05:51 08/27/25 08:00 08/27/25 05:51 08/27/25 08:00 08/27/25 05:51 08/26/25 16:58 08/22/25 07:05 Oxygen Delivery Method Room Air Weight: 186 lb 15.232 oz Body Mass Index (BMI) 26.8 Intake & Output: Intake and Output for Last 24 Hours 08/25/25 08/26/25 08/27/25 23:59 23:59 23:59 Intake Total 1260 / 1520 1190 / 1340 830 / 830 Output Total 850 / 1075 1025 / 1100 475 / 475 Balance 410 / 445 165 / 240 355 / 355 Lab / Micro Data Attestation: I reviewed the patient's lab results. Lab results narrative: from yesterday 08/26/25 06:14 08/26/25 06:14 Labs: Laboratory Results - last 24 hr 08/26/25 17:50: Urine Color Yellow, Urine Clarity Sl. Cloudy, Urine pH 5.0, Ur Specific [place] 1.020, Urine Protein 15 H, Urine Glucose (UA) Normal, Urine Ketones 5 H, Urine Occult Blood 150 H, Urine Nitrite Negative, Urine Bilirubin Negative, Urine Urobilinogen Normal, Ur Leukocyte Esterase Negative, Urine RBC 10-25 SEEN, Urine WBC 0-5 SEEN, Ur Squamous Epith Cells 0-5 SEEN, Urine Bacteria 0 SEEN, Urine Mucus 0 SEEN Micro: Microbiology 08/26/25 08:15 Stool Stool Occult Blood (RAJENDRA) - Final Physical Exam Const alert and oriented x3 Constitutional Narrative: Patient is intermittently confused General Appearance: cooperative Orientation / Consciousness: awake, oriented to person, oriented to place and oriented to time Exam Limitations: no limitations HEENT normocephalic HEENT Narrative: MM are more moist today Eyes PERRL Eyes Narrative: Wears corrective lenses Neck full ROM General: trachea midline Lymph Lymphatic: no lymphadenopathy noted Chest inspection of chest normal Resp normal respiratory effort, normal air movement, no retractions, no use of accessory muscles and clear to auscultation bilaterally Resp Narrative: No conversational dyspnea. No cough. Effort and Inspection: able to speak in complete sentences Cardio regular rate Cardio Narrative: No significant ectopy today. Rhythm: abnormal rhythm Peripheral Pulses: pulses 2+ throughout GI normal to inspection, nondistended, normoactive bowel sounds, soft to palpation, non-tender and non-distended GI Narrative: Patient reports constipation. Auscultation: normoactive bowel sounds no CVA tenderness Narrative: Incontinent of urine. utilized urinal Back/Spine no CVA tenderness Extremity normal capillary refill Extremity Narrative: Has some ankle edema but, no pretibial edema. Sits in the recliner all day with legs dependent. General Extremity: edema bilateral (3+ pitting edema to bilateral lower extremities) lower extremity Skin no rashes or lesions noted Rashes: no rashes Neuro oriented x3 Neuro Narrative: Bilateral upper extremity tremors Sensorium / Orientation: awake, alert, oriented to person, oriented to place and oriented to time Speech: speech normal Motor Exam: general weakness Psych cooperative Psych Narrative: pleasant, no agitation, poor memory and poor historian. Has a difficult time answering direct questions. Attitude: calm and engaged Activity / Motor Behavior: appropriate eye contact Speech: normal speech Mood & Affect: flat affect Insight: fair Judgement: limited Assessment & Plan Assessment/Plan (1) Debility: PLAN: * continue therapies (2) Noncompliance: (3) UTI (urinary tract infection): (4) Generalized weakness: (5) Atrial fibrillation: QUALIFIERS: Atrial fibrillation type: unspecified chronic Q ualified Code(s): I48.20 - Chronic atrial fibrillation, unspecified (6) History of Parkinson's disease: (7) Goals of care, counseling/discussion: (8) Palliative care encounter: (9) HTN (hypertension): QUALIFIERS: Hypertension type: primary hypertension Qualified Code(s): I10 - Essential (primary) hypertension (10) Constipation: QUALIFIERS: Constipation type: unspecified constipation type Q ualified Code(s): K59.00 - Constipation, unspecified (11) Hypothyroid: QUALIFIERS: Hypothyroidism type: unspecified Qualified Code(s): E 03.9 - Hypothyroidism, unspecified (12) Loss of hearing: QUALIFIERS: Hearing loss type: unspecified Laterality: u nspecified laterality Qualified Code(s): H91.90 - Unspecified hearing loss, unspecified ear (13) Hyperuricemia: (14) Orthostatic hypotension: PLAN: Suspect secondary to Parkinson's disease/autonomic dysfunction. (15) Cognitive dysfunction: PLAN: Developing Parkinson's dementia? Or is the decline in the MoCA secondary to presbycusis and him not understanding what is being asked. Will need to repeat cognitive testing prior to discharge (16) Insomnia: (17) Nocturia: PLAN: due to PD? due to anxiety/depression? BPH? bladder abnormality due to Bladder cancer? May be multifactorial per Dr. Pichardo PLAN: Plan 1. Continue therapy 2. Start trazodone 50 mg at bedtime - if he fails this after 6-12 weeks consider Desmopressin BUT, will need to monitor closely for hyponatremia 3. I talked with the SWEAT BOX ATTENDANT he follows up with. She reviewed the last neuro note. Recommended increasing the Sinemet to 4 X's a day. 4. Talked about assisted living and he does not think he is ready for that yet. Talk about how PD is progressive and his cognitive function is declining. He also now has orthostatic hypotension. He has been non-compliant with meds at home and no one to supervise him. He was informed that with the cognitive decline he will not be able to drive at [place]. He thinks he will have to give up working. Will need more discussion with family about how we can best support Adonis and will he be safe at home without supervision. 5. palliative care consult resulting in referral to outpatient palliative care. 6. Making good progress with therapy since he is taking Sinemet as instructed and he is more active. 7. Check orthostatics in the AM. Charges/Coding Visit Charges Inpatient E&M: 33274 Subs Hosp L1
--- NOTE | 2025-08-27 11:59 | CASEMGMT ---
Social Work- BRAULIO spoke with Tory HERRERA. Tory confirms that pt is 100% service connected and she is coming tomorrow at 3PM ji visit pt and discuss [facility] services. Tory intends to enroll pt in [place] [facility] so that pt is eligible for a ramp, a scooter, bathroom remodel, etc. Tory reports that after enrolling, it takes five days until an appointment is scheduled to begin the process for those items. Tory reports that [place] does not cover aide services, but she provided the family with [facility] agency options. Tory reports that she discussed the [facility] home, which would be free to pt, but feels that pt may do better in [place], which would not be covered by [place]. BRAULIO remains available to follow for discharge planning coordination. ROSALIA Perry
[2025-08-27 14:43] VITALS: BMI 26.8
[2025-08-27 17:32] VITALS: BP 131/67; PULSE 73; RESP 16; TEMP 36.2; O2SAT 97
[2025-08-27] MEDS: 0.9% Saline Lock 10 ML Syringe IV (20:48)
[2025-08-27 20:56] VITALS: BMI 26.8
[2025-08-27 20:57] VITALS: PULSE 76; RESP 16; O2SAT 97
[2025-08-28 05:49] VITALS: BP 134/72; PULSE 70; RESP 16; TEMP 36.6; O2SAT 97
[2025-08-28] MEDS: Arthritis Pain Compound 60 CLICK TUBE TOPICAL ×2 (06:56→22:03)
[2025-08-28] MEDS: APIXABAN 5 MG TABLET PO ×2 (08:28→22:03)
[2025-08-28] MEDS: Senna/Docusate Sodium 1 Tablet 2 TABLET PO ×2 (08:29→22:03)
[2025-08-28] MEDS: Polyethylene Glycol 3350 17 GM PACKET PO (08:29)
[2025-08-28 08:33] VITALS: BP 102/67; PULSE 85
[2025-08-28] MEDS: Metoprolol(XL)Succ 25 MG Tablet PO (08:33)
--- NOTE | 2025-08-28 08:49 | PCM.PROGNOTE ---
Subjective Subjective Adonis was seen on team rounds today. Family was present in the room. All questions were answered to their satisfaction. Afebrile VSS -blood pressure 24 hours has ranged from 131/67 to 134/87. Heart rate is within normal limits. Blood pressure this a.m. is 102/67. He denies lightheadedness. Maintaining appropriate oxygen saturation on RA CV most recent orthostatics showed a blood pressure of 139/83 lying down with a heart rate of 74 and standing up the blood pressure was 110/80 with a pulse rate of 113. Most recent BUN/creatinine ratio was 22.9, down from 30.7. He and I have discussed the importance of staying well hydrated. He is asymptomatic and denies lightheadness. Oral intake - FOOD good FLUIDS good Postvoid residuals x 3 have ranged from 84 to 125. Discussed with nursing - no problems that need addressed Reviewed the THERAPY notes Medication list reviewed. PSA is mildly elevated at 4.3 but at his age this is likely secondary to BPH........ he has a history of bladder cancer and follows with the urologist. His next appointment is in October. UA on Monday showed 10-25 RBCs and 0-5 WBCs with no bacteria. Adonis tells me that he is sleeping better at night now. He was up a few times to urinate last night but nurses did not comment that he was up every hour last night. Sinemet was increased to 4 times daily on Monday. He also seems to think his tremor is a little better. We also added Trazodone at HS to his drug regimen on Monday night. Adonis denies lightheadedness, cephalgia, chest pain, shortness of breath, palpitations, abdominal pain, dysuria and calf pain. He seems less fatigued and more alert today since he is sleeping better. He can not recall out previous conversation when I told him he would not be allowed to drive when leaving rehab and that we would refer him to the drivers rehab program at [facility] so that he could be tested if in fact he thinks going forward that he would be able to drive. Objective Data Objective Data Vital Signs: Vital Signs Temp Pulse Resp BP Pulse Ox O2 Del Method FiO2 97.8 F 85 16 102/67 97 Room Air 21 08/28/25 05:49 08/28/25 08:33 08/28/25 05:49 08/28/25 08:33 08/28/25 05:49 08/28/25 05:49 08/22/25 07:05 Oxygen Delivery Method Room Air Weight: 186 lb 15.232 oz Body Mass Index (BMI) 26.8 Intake & Output: Intake and Output for Last 24 Hours 08/26/25 08/27/25 08/28/25 23:59 23:59 23:59 Intake Total 1190 / 1340 1810 / 1810 590 / 590 Output Total 1025 / 1100 825 / 825 925 / 925 Balance 165 / 240 985 / 985 -335 / -335 Lab / Micro Data 08/26/25 06:14 08/26/25 06:14 Micro: Microbiology 08/26/25 08:15 Stool Stool Occult Blood (RAJENDRA) - Final Physical Exam Const alert and no apparent distress Constitutional Narrative: more expression on his face today and his voice is projecting better and is not as breathy General Appearance: cooperative Resp clear to auscultation bilaterally Resp Narrative: No conversational dyspnea. No cough. Effort and Inspection: able to speak in complete sentences; Negative for tachypneic Cardio no murmurs and no gallops Cardio Narrative: No significant ectopy today. GI normal to inspection, nondistended, normoactive bowel sounds, soft to palpation and non-tender GI Narrative: No guarding with palpation. Extremity Extremity Narrative: Has some ankle edema but, no pretibial edema. Sits in the recliner all day with legs dependent. General Extremity: edema Skin Rashes: no rashes Neuro Neuro Narrative: The tremors in his hands are less today......he thinks they are less as well.. His voice is less breathy. No akathisia/dyskinetic movements observed. Psych cooperative Psych Narrative: Pleasant, no agitation, poor memory and poor historian. Has a difficult time answering direct questions at times. Has been confused at nights intermittently. Gets undressed and tries to get out of bed. Assessment & Plan Assessment/Plan (1) Debility: (2) Noncompliance: (3) Generalized weakness: (4) Atrial fibrillation: QUALIFIERS: Atrial fibrillation type: unspecified chronic Qualified Code(s): I48.20 - Chronic atrial fibrillation, unspecified (5) History of Parkinson's disease: (6) HTN (hypertension): QUALIFIERS: Hypertension type: primary hypertension Qualified Code(s): I10 - Essential (primary) hypertension (7) Constipation: QUALIFIERS: Constipation type: unspecified constipation type Qualified Code(s): K59.00 - Constipation, unspecified (8) Hypothyroid: QUALIFIERS: Hypothyroidism type: unspecified Qualified Code(s): E03.9 - Hypothyroidism, unspecified (9) Orthostatic hypotension: (10) Cognitive dysfunction: (11) Insomnia: (12) Nocturia: (13) Elevated PSA: PLAN: 4.3. Defer further W/U to urology.....he has an appt in October. PLAN: Plan 1. Continue therapy 2. Continue trazodone 50 mg at bedtime. Check postvoid residual once daily for the next 5 days. If he is still not sleeping through the night and the postvoid residuals are less than 200 still will consider increasing to 75 mg at at bedtime. 3. will need to follow up with neurology post NC since we have changed medications. 4. He has an appt with neurology in October......defer W/U for elevated PSA to urology 5. D/W ST. 0n MOCA at admission. Should not be driving. Will refer to the drivers rehab program at [facility] at [place]. If he feels like he is able to drive will have to pass the testing at drivers rehab first. 6. Continue Sinemet 4 times daily. 7. Family will come in next Monday for family training to learn how best to assist Adonis to keep him safe. They are looking into a pill box with an alarm to remind him to take his medications. We talked about the need for absolute compliance with all medications if he wants to continue to live independently. [place] date will be next Monday.......will see if the sleep lab has an opening. 1. Do you snore loudly? Unknown, he lives alone. 2. Do you often feel tired, fatigued or sleepy during the day? Yes 3. Has anyone ever observed you stop breathing during sleep? Unknown, he lives alone 4. Do you have (or are you being treated for) HTN? Yes BMI 26.8 AGE 75 Neck circumference less than 40 cm Gender male Total 4 He has confusion at night, insomnia, some bizarre behavior at night like stripping and crawling out of bed (even with rails up). Severe nocturia. Has orthostatic hypotension, dysphagia and cognitive dysfunction related to PD and I suspect he may have REM behavior disorder. Will need a sleep study going forward. Charges/Coding Visit Charges Inpatient E&M: 86421 Subs Hosp L2
[2025-08-28 10:10] VITALS: BMI 26.8
--- NOTE | 2025-08-28 13:25 | CASEMGMT ---
Social Work IDT met with patient, sister and AUGUSTUS for Team meeting. 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 Confirmed Medicare DC for 09/03. Therapy reported pt can complete a flight of steps, thus, pt could DC to family's two-story home. BRAULIO inquired about DC plan. Extensive discussion around recommendations and home set up. Team is recommending 24/7 care, at least initially at [place], then aides can taper off as needed. BRAULIO provided respiratory therapy aide lists. Family will attend therapy training on 09/01 and will follow up with this worker afterwards. is also ordering [facility] at [place]. SW to place referral. BRAULIO provided list of skilled HHC agencies within geographical area, INN with insurance, that include quality and resource data via [employer] guide. BRAULIO will continue to follow for DC planning. Lynne Freeman MSW CLIENT SERVICES ASSISTANT
[2025-08-28] MEDS: 0.9% Saline Lock 10 ML Syringe IV ×2 (15:11→20:40)
--- NOTE | 2025-08-28 16:01 | NURSING ---
Spoke with scheduling at [facility] office, explained that Dr Pichardo wants the pt to be seen sooner. They are unable to change the appt., however, I left a message for the nurse requesting an earlier appt. Waiting for return call.
[2025-08-28 17:09] VITALS: BP 114/68; PULSE 75; RESP 17; TEMP 36.9; O2SAT 98
[2025-08-28 21:35] VITALS: RESP 16; O2SAT 98; BMI 26.8
[2025-08-29 06:00] VITALS: BP 140/85; PULSE 66; RESP 17; TEMP 36.3; O2SAT 97
[2025-08-29] MEDS: Arthritis Pain Compound 60 CLICK TUBE TOPICAL ×2 (06:15→21:03)
[2025-08-29 08:10] VITALS: BP 115/65; PULSE 70
[2025-08-29] MEDS: Senna/Docusate Sodium 1 Tablet 2 TABLET PO ×2 (08:10→21:03)
[2025-08-29] MEDS: Metoprolol(XL)Succ 25 MG Tablet PO (08:10)
[2025-08-29] MEDS: Polyethylene Glycol 3350 17 GM PACKET PO (08:11)
[2025-08-29] MEDS: APIXABAN 5 MG TABLET PO ×2 (08:11→21:04)
[2025-08-29 12:52] VITALS: BMI 26.8
[2025-08-29] MEDS: 0.9% Saline Lock 10 ML Syringe IV (13:31)
[2025-08-29 17:00] VITALS: BP 140/80; PULSE 68; RESP 16; TEMP 36.7; O2SAT 96
[2025-08-30 05:51] VITALS: BP 144/81; PULSE 68; RESP 17; TEMP 37.1; O2SAT 94
[2025-08-30] MEDS: Arthritis Pain Compound 60 CLICK TUBE TOPICAL ×2 (05:53→22:52)
[2025-08-30] MEDS: 0.9% Saline Lock 10 ML Syringe IV ×2 (05:54→14:31)
[2025-08-30 09:00] VITALS: BP 122/74; PULSE 71
[2025-08-30] MEDS: Metoprolol(XL)Succ 25 MG Tablet PO (09:00)
[2025-08-30] MEDS: Senna/Docusate Sodium 1 Tablet 2 TABLET PO ×2 (09:01→22:52)
[2025-08-30] MEDS: Polyethylene Glycol 3350 17 GM PACKET PO (09:01)
[2025-08-30] MEDS: APIXABAN 5 MG TABLET PO ×2 (09:02→22:52)
[2025-08-30 11:01] VITALS: BMI 26.8
[2025-08-30 17:54] VITALS: BP 128/68; PULSE 68; RESP 17; TEMP 36.7; O2SAT 96
[2025-08-31] MEDS: Arthritis Pain Compound 60 CLICK TUBE TOPICAL ×2 (05:42→23:08)
[2025-08-31 05:46] VITALS: BP 150/95; PULSE 76; RESP 17; TEMP 36.8; O2SAT 96
[2025-08-31 07:56] VITALS: BP 109/61; PULSE 79
[2025-08-31 07:58] VITALS: PULSE 79
[2025-08-31] MEDS: Metoprolol(XL)Succ 25 MG Tablet PO (07:58)
[2025-08-31] MEDS: APIXABAN 5 MG TABLET PO ×2 (07:58→23:08)
[2025-08-31] MEDS: Senna/Docusate Sodium 1 Tablet 2 TABLET PO ×2 (07:58→23:08)
[2025-08-31] MEDS: Polyethylene Glycol 3350 17 GM PACKET PO (07:58)
[2025-08-31 10:14] LABS: Hematocrit 41.8 % (40-54); Hemoglobin 13.6 g/dL (13.0-16.5); Immature Granulocytes Count 0.030 X10^3/uL (0.0-0.0); Mean Corp Hgb Conc 32.5 g/dL (32-36); Mean Corpuscular Volume 84.1 fL (80-94); Mean Platelet Vol. 9.8 fl (6.2-12.0); NRBC Flagged by Analyzer 0 % (0-5); Platelet Count 301 K/mm3 (150-450); RBC Distribution Width CV 13.8 % (11.6-14.6); RBC Distribution Width SD 41.8 fl (35.1-43.9); Red Blood Count 4.97 M/mm3 (4.6-6.2); White Blood Count 8.8 K/mm3 (4.4-11.0)
[2025-08-31 10:52] LABS: Anion Gap 8 (5-15); BUN 17 mg/dL (4-19); BUN/Creat Ratio 17.5 RATIO (10-20); Calcium,Total 9.1 mg/dL (7.6-11.0); Carbon Dioxide 28.3 mmol/L (21.0-32.0); Chloride 104 mmol/L (98-108); Estimated Creatinine Clearance 65.18 ml/min (50-250); Glucose 88 mg/dL (70-99); Potassium 3.9 mmol/L (3.3-5.1)
[2025-08-31 11:03] VITALS: BMI 26.8
[2025-08-31 11:05] LABS: Mucous, Urine 0 SEEN /hpf (<or=2+); Squamous Epithelial Cells - UA 0 SEEN /hpf (0-5)
[2025-08-31 11:06] LABS: Color, Urine Yellow (Yellow); Glucose, Dipstick Normal (Normal); Ketone-Dipstick Negative (Negative); Leukocyte Esterase-Dipstick 25 /ul (Negative); Nitrite-Dipstick Negative (Negative); Occult Blood-Urine 25 /ul (Negative); Protein-Dipstick 15 mg/dl (Negative); Specific Gravity, Urine 1.015 (1.002-1.030); Urine Bilirubin Dipstick Negative (Negative)
[2025-08-31 11:12] LABS: Red Blood Cells-Urine 0-5 SEEN /hpf (0-5)
[2025-08-31 18:00] VITALS: BP 133/81; PULSE 74; RESP 15; TEMP 37; O2SAT 96
[2025-09-01 02:00] VITALS: BP 143/91; PULSE 70; RESP 16; TEMP 36.9; O2SAT 96
[2025-09-01 04:12] VITALS: BMI 26.8
[2025-09-01] MEDS: Arthritis Pain Compound 60 CLICK TUBE TOPICAL ×2 (05:30→21:16)
[2025-09-01 05:49] VITALS: BP 151/97; PULSE 68; RESP 16; TEMP 37.2; O2SAT 96
--- NOTE | 2025-09-01 07:55 | PCM.PROGNOTE ---
Subjective Subjective Afebrile VSS - Maintaining appropriate oxygen saturation on RA Oral intake - FOOD 75 to 100% of most meals. FLUIDS good Postvoid residual this morning at 05:47 was 109. On Monday morning it was 9. Discussed with nursing - no problems that need addressed Reviewed the THERAPY notes Medication list reviewed. Monday night he became very confused and was incontinent of urine and had frequency. Monday morning he was back to his baseline. This is the second time during his admission to rehab that he has had confusion at night and urine incontinence and urinary frequency. Lab obtained yesterday showed a normal white blood cell count of 8.8 with 75% neutrophils. Hemoglobin and platelets were normal. Sodium is 140 and the potassium is 3.9. The BUN is down to 17 from 21 1 week ago and his creatinine is stable at 0.98. UA showed 0-5 RBCs and 5-10 WBCs per high-power field with no bacteria. Urine culture is pending. He has been afebrile. Today is alert, oriented and appropriate. He denies cephalgia, lightheadedness, chest pain, cough, shortness of breath, nausea/vomiting/abdominal pain/diarrhea, dysuria and calf pain. Slept well last night. Objective Data Objective Data Vital Signs: Vital Signs Temp Pulse Resp BP Pulse Ox O2 Del Method FiO2 98.9 F 68 16 151/97 H 96 Room Air 21 09/01/25 05:49 09/01/25 05:49 09/01/25 05:49 09/01/25 05:49 09/01/25 05:49 09/01/25 05:49 08/22/25 07:05 Oxygen Delivery Method Room Air Weight: 186 lb 15.232 oz Body Mass Index (BMI) 26.8 Intake & Output: Intake and Output for Last 24 Hours 08/30/25 08/31/25 09/01/25 23:59 23:59 23:59 Intake Total 1630 / 1630 1570 / 1570 Output Total 1325 / 1325 1100 / 1100 425 / 425 Balance 305 / 305 470 / 470 -425 / -425 Lab / Micro Data 08/31/25 10:03 08/31/25 10:03 Labs: Laboratory Results - last 24 hr 08/31/25 10:03: WBC 8.8, RBC 4.97, Hgb 13.6, Hct 41.8, MCV 84.1, MCH 27.4, MCHC 32.5, RDW Std Deviation 41.8, RDW Coeff of [place] 13.8, Plt Count 301, MPV 9.8, Immature Gran % (Auto) 0.300, Neut % (Auto) 75.1 H, Lymph % (Auto) 15.2 L, [place] % (Auto) 7.5, Eos % (Auto) 1.1, Baso % (Auto) 0.8, Absolute Neuts (auto) 6.6, Absolute Lymphs (auto) 1.34, Nucleated RBC % 0, Sodium 140, Potassium 3.9, Chloride 104, Carbon Dioxide 28.3, Anion Gap 8, BUN 17, Creatinine 0.98, Estim Creat Clear Calc 65.18, Est GFR (MDRD) Non-Af 79, BUN/Creatinine Ratio 17.5, Glucose 88, Calcium 9.1 08/31/25 11:00: Urine Color Yellow, Urine Clarity Clear, Urine pH 7.0, Ur Specific [place] 1.015, Urine Protein 15 H, Urine Glucose (UA) Normal, Urine Ketones Negative, Urine Occult Blood 25 H, Urine Nitrite Negative, Urine Bilirubin Negative, Urine Urobilinogen Normal, Ur Leukocyte Esterase 25 H, Urine RBC 0-5 SEEN, Urine WBC 5-10 SEEN, Ur Squamous Epith Cells 0 SEEN, Urine Bacteria 0 SEEN, Urine Mucus 0 SEEN Micro: Microbiology 08/26/25 08:15 Stool Stool Occult Blood (RAJENDRA) - Final Physical Exam Const alert and no apparent distress General Appearance: cooperative Resp clear to auscultation bilaterally Cardio no murmurs and no gallops Cardio Narrative: No significant ectopy today. GI normal to inspection, nondistended, normoactive bowel sounds, soft to palpation and non-tender GI Narrative: No guarding with palpation. Extremity General Extremity: edema Assessment & Plan Assessment/Plan (1) Debility: PLAN: * continue therapies (2) Noncompliance: (3) UTI (urinary tract infection): QUALIFIERS: Urinary tract infection type: site unspecified Hematuria presence: without hematuria Qualified Code(s): N39.0 - Urinary tract infection, site not specified PLAN: He was treated with antibiotics on the acute side of the hospital but, culture was negative so antibiotics were discontinued. (4) Generalized weakness: (5) Atrial fibrillation: QUALIFIERS: Atrial fibrillation type: unspecified chronic Qualified Code(s): I48.20 - Chronic atrial fibrillation, unspecified (6) History of Parkinson's disease: (7) Goals of care, counseling/discussion: (8) Palliative care encounter: (9) HTN (hypertension): QUALIFIERS: Hypertension type: primary hypertension Qualified Code(s): I10 - Essential (primary) hypertension (10) Constipation: QUALIFIERS: Constipation type: unspecified constipation type Qualified Code(s): K59.00 - Constipation, unspecified (11) Hypothyroid: QUALIFIERS: Hypothyroidism type: unspecified Qualified Code(s): E03.9 - Hypothyroidism, unspecified (12) Loss of hearing: QUALIFIERS: Hearing loss type: unspecified Laterality: unspecified laterality Qualified Code(s): H91.90 - Unspecified hearing loss, unspecified ear (13) Hyperuricemia: (14) Orthostatic hypotension: PLAN: Suspect secondary to Parkinson's disease/autonomic dysfunction. (15) Cognitive dysfunction: PLAN: Developing Parkinson's dementia? Or is the decline in the MoCA secondary to presbycusis and him not understanding what is being asked. Will need to repeat cognitive testing prior to discharge (16) Insomnia: (17) Nocturia: PLAN: due to PD? due to anxiety/depression? BPH? bladder abnormality due to Bladder cancer? May be multifactorial per Dr. Pichardo (18) REM sleep behavior disorder: PLAN: Plan 1. Continue therapy 2. This is the second episode of nocturnal confusion and behavioral disturbance since his admission to rehab. He has known Parkinson's disease. I am suspicious that he may have REM sleep behavior disorder. 33 to 50% of patients with Parkinson's disease have this disorder. I am concerned about him going home alone without 24/7 supervision until we can evaluate him for this further. I spoke with the sleep lab and they have an opening on Monday night and we are planning discharge to the sleep lab Monday evening. 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 I did a literature review and tx usually starts with Melatonin 3 mg at HS and increase by 3 mg weekly until the behavior resolves or a dose of 18 mg at HS is reached. If the Melatonin is not effective clonazepam 0.25 mg to 0.5 mg at bedtime is recommended. 4. Results of the urine culture are still pending. No indication to treat for urinary tract infection at this time as he is asymptomatic, afebrile and has a normal white blood cell count. He denies dysuria. 3. He has an appt to follow up with his neurologist on 09/19/25. 5. Discontinue trazodone and start melatonin 3 mg nightly. Charges/Coding Visit Charges Inpatient E&M: 75842 Subs Hosp L1
[2025-09-01 09:18] VITALS: BP 120/76; PULSE 73
[2025-09-01] MEDS: APIXABAN 5 MG TABLET PO ×2 (09:18→21:16)
[2025-09-01] MEDS: Metoprolol(XL)Succ 25 MG Tablet PO (09:18)
[2025-09-01 12:03] VITALS: BMI 26.8
--- NOTE | 2025-09-01 14:15 | CASEMGMT ---
Social Work SW left a VM with the AUGUSTUS to discuss DC plans. IDT continues to recommend 24/7 care and pt can return to the community if that support is in place. Pt has reached rehab potential, thus pt is not eligible for Medicare skilled care at a SNF. SW will continue to follow. Lynne Freeman MSW STOCK ASSOCIATE
[2025-09-01 17:44] VITALS: BP 135/80; PULSE 69; RESP 17; TEMP 36.2; O2SAT 96
[2025-09-01 19:45] VITALS: PULSE 69; RESP 17; O2SAT 96; BMI 26.8
[2025-09-01] MEDS: MELATONIN 3 MG TABLET PO (21:16)
[2025-09-02] MEDS: Arthritis Pain Compound 60 CLICK TUBE TOPICAL ×2 (04:58→22:12)
[2025-09-02 05:09] VITALS: BP 163/94; PULSE 76; RESP 16; TEMP 37.3; O2SAT 96
[2025-09-02 08:00] VITALS: BP 145/88; PULSE 72
[2025-09-02 08:18] VITALS: BP 163/94; PULSE 76
[2025-09-02] MEDS: APIXABAN 5 MG TABLET PO ×2 (08:18→22:10)
[2025-09-02] MEDS: Metoprolol(XL)Succ 25 MG Tablet PO (08:18)
[2025-09-02 08:53] VITALS: BP 114/81; BP 116/80; BP 137/87; PULSE 68; PULSE 84; PULSE 96
--- NOTE | 2025-09-02 09:49 | PCM.DC ---
Discharge Instructions DC O2, CPAP, BIPAP needs Home O2 Discharge instructions: No Dressing / Incision Discharge Activity: May Not Drive, May Shower and Use Walker Weight Bearing Status: Full weight bearing Keep extremity elevated above heart level: Legs Additional Activity Instructions:: Elevating your legs when you are sitting in the recliner will help decrease the swelling in your legs. Dressing / Incision Call your doctor if you observe: Fever of 101 or Higher, Inability to urinate, Inability to have a bowel movement, Shortness of breath, Dizziness, Fainting spells, Swelling in the ankles (you always have some swelling in your legs and this is why you need to wear compression stockings or ROSY wraps. If the swelling gets worse then you will need to see your PCP.), Chest pain, Increased palpitations (irregular heartbeat), Calf discomfort, Uncontrolled pain and - (STROKE symptoms: facial droop, slurred speech, inability to get words out, weakness on 1 side of the body and not the other, numbness on 1 side of the body and not the other, inability to maintain your balance sitting or standing, vertigo. ) Follow Up Care When: You have a lot of appointments scheduled for you and these are listed later in this document. Test Results: Test results from this visit will be discussed in further detail at your follow-up appointment, if applicable. Pending Tests Upon Discharge: none Discharge Plan Admission Admit Date/Time: 08/18/25 17:45 Primary Reason for Your Visit: Debility due to Parkinson's disease. Attending Provider: Kim Pichardo Primary Care Provider: Celso Julien Consulting Providers: Anita Lobato Instructions Additional Instructions / Restrictions: 1. You have done well on rehab. You can walk without a device for a short distance but, therapy recommends you use a walker for stability and safety to prevent falls. You declined at home because you were not taking your medications as prescribed and you were not staying active. With Parkinson's disease you must keep moving. IF you sit for too long you will get stiff and then you won't be able to move. Do not sit for longer than 1 hour without getting up and taking a walk......... even if it is only around the inside of the house. 2. In addition to causing tremors Parkinson's disease can also be associated with dementia, trouble swallowing, sleep disorders, urine retention and orthostatic hypotension (this means that your BP drops when you stand up and then you get lightheaded). 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 You are having a sleep study on the night of discharge from rehab to see if you have this disorder. I think this is why you sometimes get very confused in the middle of the night and have incontinence of urine. You also want to urinate every hour at night with only a small amount of output. This urinary frequency does not happen during the day. There is treatment for this disorder. The speech therapist did a test for cognition on you and out of a possible 30 point you only scored 15. This test was called the [place] cognitive assessment or MoCA. This indicates significant cognitive dysfunction and I think this may be contributing to your non-compliance with the medications. You will need someone to supervise your medications and to make sure you are taking them as directed. If you are going to stay functional you need to take the medications exactly as prescribed. 3. In my opinion and in the opinion of the rest of the rehab staff you need 24/7 supervision. Parkinson's disease is a progressive disease and you are on the cusp of needing to change your living arrangements. I advise to make a plan for where you would like to go when the time comes so we know what you want. I want to see you be as independent as possible but, I also want you to be safe. I think the [place] can be a lot of assistance to you in getting you more help. 4. IF you or your family have any questions after you leave rehab please do not hesitate to call me. OFFICE: [phone] CELL: [phone] NURSES STATION ON REHAB: [phone] Discharge Orders/Prescriptions Prescriptions: New acetaminophen 500 mg Tablet 1,000 mg PO Q8 PRN (Reason: pain or fever) Qty: 1 0RF carbidopa-levodopa 25-100 mg Tablet 1 tab PO ACHS Qty: 120 0RF sennosides-docusate sodium [Stimulant Laxative Plus] 8.6-50 mg Tablet 2 tab PO BID Qty: 120 0RF melatonin 3 mg Tablet 3 mg PO QHS Qty: 30 0RF Continued metoprolol succinate 50 mg tablet extended release 24 hr 50 mg PO DAILY Qty: 3 0RF allopurinol 100 mg Tablet 100 mg PO DAILYCM 60 Days Qty: 30 0RF levothyroxine 100 mcg tablet 100 mcg PO DAILY Qty: 30 0RF Changed Eliquis 5 mg Tablet 5 mg PO BIDCM Qty: 60 0RF Discontinued amlodipine 10 mg tablet 10 tab PO DAILY Patient Comments: TAKE 1 TABLET BY MOUTH EVERY DAY carbidopa-levodopa 25-100 mg tablet 1 tab PO TID lisinopril 5 mg Tablet 5 mg PO DAILY 60 Days Qty: 60 0RF polyethylene glycol 3350 [Miralax] 17 gram/dose powder 17 g PO DAILY Qty: 119 0RF cefdinir 300 mg capsule 300 mg PO BID Referrals / Follow Up: Sade Shine [Other, Neurology] - 12/16/25 Referral Note: family to ask for the time lab,sleep [Other] - 09/03/25 8:00 pm Bailee Britton [Other, Neurology] - 09/19/25 12:00 pm Yanira Gamble [Other, Cardiology] - 09/19/25 10:30 am VIANEY Parks [facility] [Other, Sleep Medicine] - 12/22/25 11:30 am Celso Julien MD [Primary Care Provider, Medical] - 09/09/25 1:00 pm Disposition Disposition (needs filled in before D/C Order can be placed): Home, Self Care
--- NOTE | 2025-09-02 10:36 | PCM.DC.SUM ---
Providers Date of Admission: 08/18/25 Date of Discharge: 09/03/25 Primary Care Physician: Dr. Celso Julien MD Consultations 08/25/25 09:47 Consult: Inpatient Palliative Care Routine Consulting Provider: Anita Lobato Reason for Consult: PD EMERGENT Consult: No MD Notified: Yes Date Notified: 08/25/25 Time Notified: 09:47 Method of Notification: Verbal 09/03/25 16:29 Consult: Hospice / Outpatient Palliative Care Routine Consulting Provider: Other Group- Specify Below Reason for Consult: Decline in health; pt request EMERGENT Consult: No MD Notified: Yes Date Notified: 09/03/25 Time Notified: 16:30 Method of Notification: Verbal Reason For Visit: PARKINSONS DECLINE Diagnosis Discharge Diagnosis (1) Debility: Status: Acute Code(s): R53.81 - Other malaise (2) Noncompliance: Status: Chronic Code(s): Z91.199 - Patient's noncompliance with other medical treatment and regimen due to unspecified reason Plan: Per family had many unopened pill containers at home. He admitted to only taking Sinemet twice a day. He has significant cognitive dysfunction and only scored 15 out of a possible 30 on the MoCA. He will need assistance with med management and 08/05 supervision to ensure that he takes his medications following discharge from rehab. (3) UTI (urinary tract infection): Status: Ruled-out Code(s): N39.0 - Urinary tract infection, site not specified Qualifiers: Hematuria presence: without hematuria Urinary tract infection type: site unspecified Qualified Code(s): N39.0 - Urinary tract infection, site not specified Plan: He was treated with antibiotics on the acute side of the hospital but, culture was negative so antibiotics were discontinued. (4) Generalized weakness: Status: Chronic Code(s): R53.1 - Weakness Plan: Declining recently suspect due to medication non-compliance and inactivity. He improved pretty quickly on rehab when taking appropriate medication and daily activity. (5) Atrial fibrillation: Status: Chronic Code(s): I48.91 - Unspecified atrial fibrillation Qualifiers: Atrial fibrillation type: unspecified chronic Qualified Code(s): I48.20 - Chronic atrial fibrillation, unspecified Plan: Continue Eliquis 5 mg p.o. twice daily (6) History of Parkinson's disease: Status: Chronic Code(s): Z86.69 - Personal history of other diseases of the nervous system and sense organs Plan: Complications include. cognitive dysfunction ( on MOCA), orthostatic hypotension, urine retention, suspected REM sleep behavior disorder with episodic confusion in the area loss prevention manager associated with urinary incontinence and wanting to urinate every hour.....small amounts. Also taking his clothes off and trying to get oput of bed naked. (7) Goals of care, counseling/discussion: Status: Acute Code(s): Z71.89 - Other specified counseling Plan: Seen by Palliative care while on rehab. Pt agreeable to palliative care and they will follow up with Adonis post DC from rehab. (8) Palliative care encounter: Status: Acute Code(s): Z51.5 - Encounter for palliative care (9) HTN (hypertension): Status: Chronic Code(s): I10 - Essential (primary) hypertension Qualifiers: Hypertension type: primary hypertension Qualified Code(s): I10 - Essential (primary) hypertension Plan: DC on metoprolol XL 50 mg daily. (10) Orthostatic hypotension: Status: Acute Code(s): I95.1 - Orthostatic hypotension Plan: Suspect secondary to Parkinson's disease/autonomic dysfunction. Amlodipine discontinued. Kept on Metoprolol XL 50 mg daily to prevent RVR with hx of AF. He is still orthostatic at DC from rehab but, systolic stays above 100 and he is asympotomatic. (11) Constipation: Status: Chronic Code(s): K59.00 - Constipation, unspecified Qualifiers: Constipation type: unspecified constipation type Qualified Code(s): K59.00 - Constipation, unspecified Plan: Discharged on senna 2 tablets twice daily. (12) Hypothyroid: Status: Chronic Code(s): E03.9 - Hypothyroidism, unspecified Qualifiers: Hypothyroidism type: unspecified Qualified Code(s): E03.9 - Hypothyroidism, unspecified Plan: Continue levothyroxine 100 mcg daily. TSH on 08/14/2025 was 2.82. (13) Loss of hearing: Status: Chronic Code(s): H91.90 - Unspecified hearing loss, unspecified ear Qualifiers: Hearing loss type: unspecified Laterality: unspecified laterality Qualified Code(s): H91.90 - Unspecified hearing loss, unspecified ear Plan: Does not have hearing aids but, suspect some of the poor functioning on the MOCA may be due to not hearing what is being said to him........may benefit with hearing aids. (14) Hyperuricemia: Status: Chronic Code(s): E79.0 - Hyperuricemia without signs of inflammatory arthritis and tophaceous disease Plan: Uric acid was 7.2 while on rehab. Will continue allopurinol. He did not have any gout episodes while on rehab. If he has attacks of acute gouty arthritis it may be beneficial to increase allopurinol to 200 mg and get the uric acid less than 6. He is non-compliant with Allopurinol per family and only takes it when he has gout. (15) Cognitive dysfunction: Status: Chronic Code(s): F09 - Unspecified 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 Plan: Developing Parkinson's dementia? Or is the decline in the MoCA secondary to presbycusis and him not understanding what is being asked. Scored a 15 out of a possible 30 on the MoCA. I reviewed an article from the nurse practitioner who sees him and the MoCA in June of this year was . The etiology of the cognitive decline is unclear at this time. It is likely multifactorial and could be due to vascular dementia from previous strokes, PD dementia and hearing loss. (16) Insomnia: Status: Chronic Code(s): G47.00 - Insomnia, unspecified Qualifiers: Insomnia type: unspecified Qualified Code(s): G47.00 - Insomnia, unspecified Plan: I suspect he may have a sleep disorder and this may be contributing to insomnia. He was getting up 9 times a night to urinate and only goes 100 cc's. Postvoid residuals while on rehab have ranged from 9-196. When we gave him Trazodone he slept better and got up to urinate only 2-3 times. At times, even with Trazodone 50 mg, he gets very confused in the area loss prevention manager hours, strips off his clothes and is incontinent or urine but, is also summoning the nurses every hour to urinate. I suspect he may have REM sleep behavior disorder. He will have a sleep study on the night of DC from rehab and then follow up with neurology. Overnight rtrending pulse ox was unremarkable. The pulse ox ranged from 91 to 99% 100% of the time he was monitored. STOP BANG score is 4. (17) Nocturia: Status: Chronic Code(s): R35.1 - Nocturia Plan: due to PD? due to anxiety/depression? BPH? bladder abnormality due to Bladder cancer? May be multifactorial per Dr. Pichardo ......may be related to a sleep disorder. 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 He has a regular follow-up appointment with his urologist in October 2025. Positive history of bladder cancer. Medications at Discharge Home Medications acetaminophen 500 mg tablet 1,000 mg (2 x 500 mg) PO Q8 PRN pain or fever #1 TAB 09/02/25 allopurinol 100 mg tablet 100 mg PO DAILYCM Gout 60 days #30 tabs 09/02/25 apixaban 5 mg tablet (Eliquis) 5 mg PO BIDCM heart #60 tabs 09/02/25 carbidopa 25 mg-levodopa 100 mg tablet 1 tab PO ACHS #120 tabs 09/02/25 levothyroxine 100 mcg tablet 100 mcg PO DAILY disorder of thyroid gland #30 tabs 09/02/25 melatonin 3 mg tablet 3 mg PO QHS #30 tabs 09/02/25 metoprolol succinate 50 mg tablet,extended release 24 hr 50 mg PO DAILY heart #3 tabs 09/02/25 sennosides 8.6 mg-docusate sodium 50 mg tablet (Stimulant Laxative Plus) 2 tab PO BID #120 tabs 09/02/25 Hospital Course Operations None Procedures None Summary of Care Provided Minutes Spent on Discharge: 50 Hospital Course: TRACI COOPER, is a 75 YO M with a past medical history of Parkinson's disease, hypertension, CVA in October 2023, atrial fibrillation, stage I diastolic dysfunction, presbycusis (no hearing aids), chronic anticoagulation with Eliquis, insomnia and history of bladder cancer which was resected in March 2024. Who presented to [facility] emergency department on 08/14/2025 with a complaint of worsening weakness and difficulty with ambulation x 3 days prior to presentation to the emergency department. He was found to have a slight elevation in his WBCs at 13 and a total bilirubin of 1.3. A noncontrast CT brain in the emergency department was negative for any acute processes. Chronic changes included diffuse white matter hypodensities suspected to be secondary to chronic small vessel ischemia and parenchymal volume loss consistent with brain atrophy. UA done in the emergency room was nitrite negative and there were 0-5 RBCs and 5-10 white blood cells seen. There was no bacteria. He was admitted to the hospitalist service with decompensation of Parkinson's disease. He received 2 doses of intravenous Rocephin and then was transition to cefdinir but this was discontinued with a urine culture was negative. He was seen by PT/OT/ST and recommendations were for acute rehab at discharge. He had been living by himself in a trailer and driving. He was transferred to the acute inpatient rehab unit at [facility] on 08/18/2025 for 3 hours of therapy daily to restore function/independence at or near his level prior to admission. When I talked to Adonis at admission to rehab he admitted that he had only been taking the Sinemet twice a day. His family later brought in a bag of medications with many unopened pill bottles. His [id number] told me that Adonis only takes his allopurinol when he has gout. I suspect he has not consistently been taking his other medications either. This likely contributed to his deconditioning. Speech therapy administered a MoCA (he [place] cognitive assessment) and he scored only 15 out of a possible 30. We obtained documentation from his last visit to the [facility] in June 2025 and at that time his MoCA was 23/30. Adonis told me that he gets up up to 9-10 times at night to urinate. He has a hx of blader CA that was resected in March and he follows with a urologist. On PE at admission to rehab he was noted to have pitting edema of the LEs to just above the ankles. He sits in a recliner most of the day with his legs dependent and will not elevate. He was also on Amlodipine 10 mg daily which is known to cause peripheral edema. ROSY wraps were applied with some improvement of the BL LE edema. Amlodipine was discontinued. He has no hx of CHF and EF less than 2 years ago was normal. Orthostatic vital signs were positive for orthostatic hypotension while on rehab. He does retain urine but generally less than 200 cc with rare exceptions. 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 Uric acid level was elevated at 7.2 however this is most likely secondary to noncompliance with allopurinol. Would recheck in 4 to 6 weeks on 100 mg of allopurinol daily and increase only if the uric acid remains greater than 6. With regular administration of his medications he made steady progress with therapy. He continued to have significant tremors and Sinemet was increased to 4 times daily, AC and at bedtime. He has noticed that the tremors are less but he still has tremors which get worse when he is anxious. Adonis had some strange behaviors at night. On a few occasions he was up in his room, confused and taking his clothes off. When this happens he wants to use the urinal every hour and does not sleep well. He has no recollection of ever being confused at night but, can tell me that he is up a lot to urinate at night chronically. I suspect he may have REM sleep behavior disorder. An overnight trending pulse ox was obtained and did not reveal desaturations but, his STOP BANG score is 3 putting him at increased risk for sleep apnea. A sleep study was obtained on the night of DC from rehab. He was started on Melatonin 3 mg at HS. If after another week he is still getting up at night frequently and confused would increase the Melatonin by 3 mg for a total of 6 mg at HS. Would avoid antipsychotics for sleep due to orthostatic hypotension. BP on rehab has been elevated above goal....kp when he is anxious. The HR also increases. Metoprolol was increased from 25 mg daily to 50 mg daily 1 days prior to DC from rehab. We may have to tolerate some mild increase in BP since the pressure drops with standing. We did not start Midodrine because the systolic BP is no longer dropping below 100 systolic and he is asymptomatic. Would allow 5-7 days to elapse before increasing antihypertensives and check orthostatics with any change in the antihypertensive regimen. At the time of discharge Adonis is able to do 9 sit to stands and 30 seconds at standby assist. He was only able to do 2 at admission to rehab. He is able to ascend/descend 2 steps with handrails at contact-guard assist. He has ambulated up to 450 feet with a wheeled walker at standby assist on various surfaces. He can ambulate up to 120 feet without of device at contact-guard assist/standby assist. He is independent with eating and supervision/set up for grooming. He is standby assist for bathing and toileting. He is supervision/set up for toilet transfer and tub/shower transfer. He is supervision/set up for upper body dressing and requires minimal assistance with lower body dressing. Due to cognitive dysfunction and non-compliance with medications we recommend 08/05 supervision. Adonis has some assistance from his sister and Brother in law but, they can not be there to give him Sinemet 4 times a day. I am concerned about the episodic confusion at night and the orthostatic hypotension and do not feel he would be safe at home without supervision. He is a vet and [place] came [facility] [place] [facility] to interview [place] he was on [facility]. Family has not contacted [facility] yet to see [facility] services would be available. Family did come in for family therapy to see if they could manage the assistance Adonis needs to be able to return to his trailer. It was decided that Adonis would be safest going to an [facility]. He was told he would no longer be able to drive. He has a appt with his neurologist coming up on 09/08. If he does have a sleep disorder that can be treated he could possibly return home but, would still need med management. His hearing was tested while on rehab and he has a moderate hearing loss in both ears. Some of the confusion could be due to him not hearing what is being said to him. We recommended he get an appt with an crematory attendant and see if he would benefit from hearing aids........this could conceivably improve his performance on cognitive testing. Orthostatics were done on 09/02/2025 and blood pressure lying down was 114/81 with a pulse rate of 68. Blood pressure sitting was 137/87 with a heart rate of 84. Standing up his blood pressure dropped to 116/88 and the pulse increased to 96 which is a 28 point increase going from lying to standing. The systolic dropped 21 points going from sitting to standing. He is still orthostatic but he had no diaphoresis and also had no complaint of lightheadedness. Physical Exam Const alert, oriented x3 and no apparent distress General Appearance: cooperative HEENT normocephalic Eyes PERRL Eyes Narrative: Wears corrective lenses Resp normal respiratory effort, normal air movement, no use of accessory muscles and clear to auscultation bilaterally Resp Narrative: No conversational dyspnea. No cough. Effort and Inspection: Negative for tachypneic Cardio regular rate, no murmurs and no gallops Cardio Narrative: No significant ectopy today. GI normal to inspection, nondistended, normoactive bowel sounds and soft to palpation GI Narrative: No guarding with palpation. no CVA tenderness Extremity Extremity Narrative: Has some ankle edema but, no pretibial edema. Sits in the recliner all day with legs dependent. Edema is significantly better with discontinuation of Amlodipine and application of ROSY wraps. Skin no rashes or lesions noted Neuro oriented x3 Neuro Narrative: Masked facies. Voice is soft and at times hard to understand. It has improved since admission to rehab. Still with resting tremors of both hands.......somewhat better since the Sinemet was increased to QID. Tremors increase with anxiety. Rigidity is better. He is stronger and can do 9 sit t stands in 30 sec now. Ambulating over 400' with a FWW on various surfaces. Shuffling gait but, reciprocal stepping now with ambulation. Psych cooperative and denies hallucinations Psych Narrative: Anxious today about the sleep study. HR and BP increased and I suspect this is related to anxiety. He is adamant that he is able to go home and be safe. When we talked about the confusion at night he had no recollection. Attitude: calm and engaged Activity / Motor Behavior: appropriate eye contact Mood & Affect: flat affect Judgement: limited Weight / BMI Weight Weight: 184 lb 15.485 oz Body Mass Index (BMI) 26.5 ABG / Lab / Microbiology Data 08/31/25 10:03 08/31/25 10:03 Microbiology: Microbiology 08/31/25 11:00 Urine, Catheterized Urine Culture - Final Staphylococcus haemolyticus 08/26/25 08:15 Stool Stool Occult Blood (RAJENDRA) - Final D/C Instructions Weight Bearing Status: Full weight bearing Keep extremity elevated above heart level: Legs Additional Activity Instructions: Elevating your legs when you are sitting in the recliner will help decrease the swelling in your legs. Call your doctor if you observe: Fever of 101 or Higher, Inability to urinate, Inability to have a bowel movement, Shortness of breath, Dizziness, Fainting spells, Swelling in the ankles (you always have some swelling in your legs and this is why you need to wear compression stockings or ROSY wraps. If the swelling gets worse then you will need to see your PCP.), Chest pain, Increased palpitations (irregular heartbeat), Calf discomfort, Uncontrolled pain and - (STROKE symptoms: facial droop, slurred speech, inability to get words out, weakness on 1 side of the body and not the other, numbness on 1 side of the body and not the other, inability to maintain your balance sitting or standing, vertigo. ) DC O2, CPAP, BIPAP Needs Home O2 Discharge instructions: No Pending Tests Upon Discharge: none When: You have a lot of appointment scheduled for you and these are listed later in this document. Meaningful Use Info Meaningful Use Meaningful Use Diagnoses (Choose all that apply): None applicable Discharge Plan Admission Admit Date/Time: 08/18/25 17:45 Primary Reason for Your Visit: Debility due to Parkinson's disease. Attending Provider: Kim Pichardo Primary Care Provider: Celso Julien Consulting Providers: Anita Lobato Instructions Additional Instructions / Restrictions: 1. You have done well on rehab. You can walk without a device for a short distance but, therapy recommends you use a walker for stability and safety to prevent falls. You declined at home because you were not taking your medications as prescribed and you were not staying active. With Parkinson's disease you must keep moving. IF you sit for too long you will get stiff and then you won't be able to move. Do not sit for longer than 1 hour without getting up and taking a walk......... even if it is only around the inside of the house. 2. In addition to causing tremors Parkinson's disease can also be associated with dementia, trouble swallowing, sleep disorders, urine retention and orthostatic hypotension (this means that your BP drops when you stand up and then you get lightheaded). You have urine retention, orthostatic hypotension and cognitive dysfunction and I suspect you have a sleep disorder called REM sleep behavior disorder......this is common in [facility]'s patients. You are having a sleep study on the night of discharge from rehab to see if you have this disorder. I think this is why you sometimes get very confused in the middle of the night and have incontinence of urine. You also want to urinate every hour at night with only a small amount of output. This urinary frequency does not happen during the day. There is treatment for this disorder. The speech therapist did a test for cognition on you and out of a possible 30 point you only scored 15. This test was called the [place] cognitive assessment or MoCA. This indicates significant cognitive dysfunction and I think this may be contributing to your non-compliance with the medications. You will need someone to supervise your medications and to make sure you are taking them as directed. If you are going to stay functional you need to take the medications exactly as prescribed. 3. In my opinion and in the opinion of the rest of the rehab staff you need 24/7 supervision. Parkinson's disease is a progressive disease and you are on the cusp of needing to change your living arrangements. I advise to make a plan for where you would like to go when the time comes so we know what you want. I want to see you be as independent as possible but, I also want you to be safe. I think the [facility] can be a lot of assistance to you in getting you more help. 4. IF you or your family have any questions after you leave rehab please do not hesitate to call me. OFFICE: [phone] CELL: [phone] NURSES STATION ON REHAB: [phone] Discharge Orders/Prescriptions Prescriptions: New acetaminophen 500 mg Tablet 1,000 mg PO Q8 PRN (Reason: pain or fever) Qty: 1 0RF carbidopa-levodopa 25-100 mg Tablet 1 tab PO ACHS Qty: 120 0RF sennosides-docusate sodium [Stimulant Laxative Plus] 8.6-50 mg Tablet 2 tab PO BID Qty: 120 0RF melatonin 3 mg Tablet 3 mg PO QHS Qty: 30 0RF Continued metoprolol succinate 50 mg tablet extended release 24 hr 50 mg PO DAILY Qty: 3 0RF allopurinol 100 mg Tablet 100 mg PO DAILYCM 60 Days Qty: 30 0RF levothyroxine 100 mcg tablet 100 mcg PO DAILY Qty: 30 0RF Changed Eliquis 5 mg Tablet 5 mg PO BIDCM Qty: 60 0RF Discontinued amlodipine 10 mg tablet 10 tab PO DAILY Patient Comments: TAKE 1 TABLET BY MOUTH EVERY DAY carbidopa-levodopa 25-100 mg tablet 1 tab PO TID lisinopril 5 mg Tablet 5 mg PO DAILY 60 Days Qty: 60 0RF polyethylene glycol 3350 [Miralax] 17 gram/dose powder 17 g PO DAILY Qty: 119 0RF cefdinir 300 mg capsule 300 mg PO BID Referrals / Follow Up: Sade Shine [Other, Neurology] - 12/16/25 Referral Note: family to ask for the time lab,sleep [Other] - 09/03/25 8:00 pm Bailee Britton [Other, Neurology] - 09/19/25 12:00 pm Yanira Gamble [Other, Cardiology] - 09/19/25 10:30 am VIANEY Parks [facility] [Other, Sleep Medicine] - 12/22/25 11:30 am Celso Julien MD [Primary Care Provider, Medical] - 09/09/25 1:00 pm Disposition Disposition (needs filled in before D/C Order can be placed): NonSkilled NH/Intermed Care Charges/Coding Visit Charges Inpatient E&M: 98577 Disch Hosp >30min
--- NOTE | 2025-09-02 10:45 | CASEMGMT ---
Addendum entered by Lynne Freeman 09/02/25 16:23: BRAULIO received call from pt's AUGUSTUS stating they toured [facility] and requesting a referral. BRAULIO agreed to place referral, but clarified that [facility] provided family with private pay rate reiterating pt will be paying privately. AUGUSTUS replied, "no, we're under the impression that Medicare will cover him for 80 days". BRAULIO reminded family of earlier conversation explaining pt has met rehab potential and does not qualify for Medicare skilled needs, thus, will not be covering SNF stay and pt would be OOP. AUGUSTUS continue to argue with this worker and having difficulting actively listening to the information this worker attempted to explain. BRAULIO redirected the conversation that this worker will make the referral to [facility] and will notify the AUGUSTUS of the outcome. AUGUSTUS agreed. - BRAULIO phoned Gila at [facility] to provide background of patient and family on the multiple conversations with and this worker of pt's recommendation treatment at [facility], stressing pt would [place] intermediate. Family had voiced several times prior that funds were not an issue. Gila confirmed she did provide family with private pay rate, but the team to review referral once sent and provide an outcome. BRAULIO sent referral via [employer]. BRAULIO phoned to provide an update. Original Note: Social Work Pt's AUGUSTUS and sister presented to unit's nurse's station and requested to speak with this worker. BRAULIO met with family in waiting area. BRAULIO noted this worker phoned AUGUSTUS yesterday and sister this morning. Both unaware and checked their phones finding this worker's VM. AUGUSTUS asking about pt admitting to TCU. BRAULIO explained that IDT discussed and pt has met his rehab potential and does not qualify for skilled services, thus, is not eligible for TCU. BRAULIO explained the recommendation remains for / care at [facility], which can be hiring assistance in the pt's home, assisting sister and AUGUSTUS with pt in their home or intermediate care at an [facility]. BRAULIO explained pt will have the sleep study on 09/03 and DC "home" on 09/04 at 0600. BRAULIO answered questions. Family expressed their interpretation that after the sleep study and treatment, put would be able to live at home alone with "check-ins". BRAULIO clarified that is inaccurate, per IDT, regardless of sleep study treatment, d/t pt's cognition and progressive Parkinson's disease, pt is unable to live alone and will still require 24/7 care. SW noted that home is dynamic and after pt does get potential treatment, those recommendations may lessen such as overnight care, but again, pt needs physical and cognitive assistance. Family questioned that further and voiced "everything happened to fast". SW acknowledged the information can be overwhelming and confusing, though the recommendations and DC date has been given with ample notice. Family retrieved resources provided from this worker. SW educated to skilled HHC and private duty [employer] and referenced those lists, along with SNF lists, as that would be another alternative option if [employer] cannot be in place in time. 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 SW highlighted the private duty agencies that note they provide 24/7 care and accepts [place], for when that assistance is available. SW wrote on the paper copies to call this worker with selected skilled HHC agency or SNF, and family to contact private duty agencies. Family expressed understanding and appreciative of assistance. Family remained to speak 1:1 with Sleep Lab ASSEMBLER CARDS AND ANNOUNCEMENTS on that protocol. SW will continue to follow to await for DC planning. Updated Dr. Lynne Freeman SUPERVISOR HAIRSPRING FABRICATION PROCESS IMPROVEMENT ANALYST
[2025-09-02 15:44] VITALS: BMI 26.8
[2025-09-02 18:00] VITALS: BP 153/93; PULSE 96; RESP 16; TEMP 36.8; O2SAT 96
[2025-09-02 22:00] VITALS: PULSE 96; RESP 16; O2SAT 96; BMI 26.8
[2025-09-02] MEDS: MELATONIN 3 MG TABLET PO (22:12)
[2025-09-03 05:12] VITALS: BP 171/119; PULSE 92; RESP 17; TEMP 36.9; O2SAT 97
[2025-09-03] MEDS: Arthritis Pain Compound 60 CLICK TUBE TOPICAL ×2 (05:19→19:31)
[2025-09-03 06:00] VITALS: BMI 26.5
[2025-09-03 07:55] VITALS: BP 127/83; PULSE 90
[2025-09-03] MEDS: Polyethylene Glycol 3350 17 GM PACKET PO (07:55)
[2025-09-03] MEDS: Metoprolol(XL)Succ 25 MG Tablet PO (07:55)
[2025-09-03] MEDS: Senna/Docusate Sodium 1 Tablet 2 TABLET PO ×2 (07:55→19:39)
[2025-09-03] MEDS: APIXABAN 5 MG TABLET PO ×2 (08:04→19:31)
[2025-09-03 08:07] VITALS: BP 127/83; PULSE 90
--- NOTE | 2025-09-03 10:05 | CASEMGMT ---
Addendum entered by Lynne Freeman 09/03/25 12:52: SW phoned sister to confirm knowledge of acceptance. Sister confirmed and pt will be paying privately. Sister will transport after sleep study 09/04 to [facility]. SW to finalize details. Sister appreciative. SW updated IDT. PASRR to be completed. Plan: DC 09/03 to sleep lab, then 09/04 to [facility], intermediate, private pay, part B therapies Original Note: Social Work SW received update that [facility] can accept pt intermediate, private pay and [facility] will contact family to discuss payment. SW will follow. Lynne Freeman MANAGER INTERMEDIATE SKIN PILER
[2025-09-03 11:05] VITALS: BMI 26.5
--- NOTE | 2025-09-03 14:25 | PCM.TXEXTCAR ---
Diet Diet Order/Speech Therapy: INPATIENT Hospital Diet / Speech Therapy Order(s) 08/18/25 18:07 Diet: Regular - General Food consistency:: Regular Liquid Consistency:: Regular/Thin Type of Dietary Supplement:: Ensure Plus High Protein Diet Comments: ensure plus w/ meals-NO [place] cut up meats DC O2, CPAP, BIPAP needs Home O2 Discharge instructions: No Therapies Weight Bearing: Full weight bearing Physical Therapy: Eval and Treat Occupational Therapy: Eval and Treat Problem/Diagnosis (1) Debility: Status: Acute Code(s): R53.81 - Other malaise Plan: * continue therapies (2) Noncompliance: Status: Chronic Code(s): Z91.199 - Patient's noncompliance with other medical treatment and regimen due to unspecified reason Comment: Noncompliant with medication (3) UTI (urinary tract infection): Status: Ruled-out Code(s): N39.0 - Urinary tract infection, site not specified Comment: Urine culture was negative and antibiotic was discontinued. (4) Generalized weakness: Status: Chronic Code(s): R53.1 - Weakness (5) Atrial fibrillation: Status: Chronic Code(s): I48.91 - Unspecified atrial fibrillation Comment: Paroxysmal (6) History of Parkinson's disease: Status: Chronic Code(s): Z86.69 - Personal history of other diseases of the nervous system and sense organs (7) Goals of care, counseling/discussion: Status: Acute Code(s): Z71.89 - Other specified counseling (8) Palliative care encounter: Status: Acute Code(s): Z51.5 - Encounter for palliative care Comment: *out patient palliative care referral (9) HTN (hypertension): Status: Chronic Code(s): I10 - Essential (primary) hypertension (10) Orthostatic hypotension: Status: Acute Code(s): I95.1 - Orthostatic hypotension Plan: Suspect secondary to Parkinson's disease/autonomic dysfunction. (11) Constipation: Status: Chronic Code(s): K59.00 - Constipation, unspecified (12) Hypothyroid: Status: Chronic Code(s): E03.9 - Hypothyroidism, unspecified Comment: History of multinodular goiter (13) Loss of hearing: Status: Chronic Code(s): H91.90 - Unspecified hearing loss, unspecified ear (14) Hyperuricemia: Status: Chronic Code(s): E79.0 - Hyperuricemia without signs of inflammatory arthritis and tophaceous disease Comment: Takes allopurinol sporadically, usually when he has gout (15) Cognitive dysfunction: Status: Chronic Code(s): F09 - Unspecified 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 Plan: Developing Parkinson's dementia? Or is the decline in the MoCA secondary to presbycusis and him not understanding what is being asked. Will need to repeat cognitive testing prior to discharge (16) Insomnia: Status: Chronic Code(s): G47.00 - Insomnia, unspecified (17) Nocturia: Status: Chronic Code(s): R35.1 - Nocturia Plan: due to PD? due to anxiety/depression? BPH? bladder abnormality due to Bladder cancer? May be multifactorial per Dr. Pichardo (18) REM sleep behavior disorder: Status: Suspected Code(s): G47.52 - REM sleep behavior disorder (19) Elevated PSA: Status: Chronic Code(s): R97.20 - Elevated prostate specific antigen [PSA] Plan 1. Continue therapy 2. Start trazodone 50 mg at bedtime - if he fails this after 6-12 weeks consider Desmopressin BUT, will need to monitor closely for hyponatremia 3. I talked with the SLATE MIXER he follows up with. She reviewed the last neuro note. Recommended increasing the Sinemet to 4 X's a day. 4. Talked about assisted living and he does not think he is ready for that yet. Talk about how PD is progressive and his cognitive function is declining. He also now has orthostatic hypotension. He has been non-compliant with meds at home and no one to supervise him. He was informed that with the cognitive decline he will not be able to drive at [place]. He thinks he will have to give up working. Will need more discussion with family about how we can best support Adonis and will he be safe at home without supervision. Recommending placement 5. palliative care consult resulting in referral to outpatient palliative care. 6. Making good progress with therapy since he is taking Sinemet as instructed and he is more active. 7. Check orthostatics in the AM. Allergies/Procedures Done in Hospital Allergies No Known Allergies Allergy (Verified 07/15/25 12:43) Type of Care/Length of Stay Estimated LOS: More Than 30 Days Type of Care Needed: Intermediate Rehab Potential: Good Prognosis: Good Additional Orders/Day of Discharge Additional Orders: part B therapies [facility] referred. Day of Discharge: 09/04/25 Dietary and Speech Recommendations Dietitian Recommendations/Changes: Will continue regular diet; consistency/texture adjustments as needed per FACILITY ASSISTANT. Will continue 120mL Ensure Plus HP with all meal trays--likes chocolate and vanilla; No strawberry. Trend weights closely and adjust ONS as needed. Follow Up Care Please follow up with your Primary Care Physician in: PCP at next available appt Discharge Plan Admission Admit Date/Time: 08/18/25 17:45 Primary Reason for Your Visit: Debility due to Parkinson's disease. Attending Provider: Kim Pichardo Primary Care Provider: Celso Julien Consulting Providers: Anita Lobato Instructions Additional Instructions / Restrictions: 1. You have done well on rehab. You can walk without a device for a short distance but, therapy recommends you use a walker for stability and safety to prevent falls. You declined at home because you were not taking your medications as prescribed and you were not staying active. With Parkinson's disease you must keep moving. IF you sit for too long you will get stiff and then you won't be able to move. Do not sit for longer than 1 hour without getting up and taking a walk......... even if it is only around the inside of the house. 2. In addition to causing tremors Parkinson's disease can also be associated with dementia, trouble swallowing, sleep disorders, urine retention and orthostatic hypotension (this means that your BP drops when you stand up and then you get lightheaded). 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 You are having a sleep study on the night of discharge from rehab to see if you have this disorder. I think this is why you sometimes get very confused in the middle of the night and have incontinence of urine. You also want to urinate every hour at night with only a small amount of output. This urinary frequency does not happen during the day. There is treatment for this disorder. The speech therapist did a test for cognition on you and out of a possible 30 point you only scored 15. This test was called the [place] cognitive assessment or MoCA. This indicates significant cognitive dysfunction and I think this may be contributing to your non-compliance with the medications. You will need someone to supervise your medications and to make sure you are taking them as directed. If you are going to stay functional you need to take the medications exactly as prescribed. 3. In my opinion and in the opinion of the rest of the rehab staff you need 24/7 supervision. Parkinson's disease is a progressive disease and you are on the cusp of needing to change your living arrangements. I advise to make a plan for where you would like to go when the time comes so we know what you want. I want to see you be as independent as possible but, I also want you to be safe. I think the [place] can be a lot of assistance to you in getting you more help. 4. IF you or your family have any questions after you leave rehab please do not hesitate to call me. OFFICE: [phone] CELL: [phone] NURSES STATION ON REHAB: [phone] Discharge Orders/Prescriptions Prescriptions: New acetaminophen 500 mg Tablet 1,000 mg PO Q8 PRN (Reason: pain or fever) Qty: 1 0RF carbidopa-levodopa 25-100 mg Tablet 1 tab PO ACHS Qty: 120 0RF sennosides-docusate sodium [Stimulant Laxative Plus] 8.6-50 mg Tablet 2 tab PO BID Qty: 120 0RF melatonin 3 mg Tablet 3 mg PO QHS Qty: 30 0RF Continued metoprolol succinate 50 mg tablet extended release 24 hr 50 mg PO DAILY Qty: 3 0RF allopurinol 100 mg Tablet 100 mg PO DAILYCM 60 Days Qty: 30 0RF levothyroxine 100 mcg tablet 100 mcg PO DAILY Qty: 30 0RF Changed Eliquis 5 mg Tablet 5 mg PO BIDCM Qty: 60 0RF Discontinued amlodipine 10 mg tablet 10 tab PO DAILY Patient Comments: TAKE 1 TABLET BY MOUTH EVERY DAY carbidopa-levodopa 25-100 mg tablet 1 tab PO TID lisinopril 5 mg Tablet 5 mg PO DAILY 60 Days Qty: 60 0RF polyethylene glycol 3350 [Miralax] 17 gram/dose powder 17 g PO DAILY Qty: 119 0RF cefdinir 300 mg capsule 300 mg PO BID Referrals / Follow Up: Sade Shine [Other, Neurology] - 12/16/25 Referral Note: family to ask for the time lab,sleep [Other] - 09/03/25 8:00 pm Bailee Britton [Other, Neurology] - 09/19/25 12:00 pm Yanira Gamble [Other, Cardiology] - 09/19/25 10:30 am VIANEY Parks [facility] [Other, Sleep Medicine] - 12/22/25 11:30 am Celso Julien MD [Primary Care Provider, Medical] - 09/09/25 1:00 pm Disposition Disposition (needs filled in before D/C Order can be placed): NonSkilled NH/Intermed Care Charges/Coding Addendum Addendum: Pt discharge is 09/03/25 and not 09/04/25 (3) UTI (urinary tract infection) Qualifiers: Hematuria presence: without hematuria Urinary tract infection type: site unspecified Qualified Code(s): N39.0 - Urinary tract infection, site not specified (5) Atrial fibrillation Qualifiers: Atrial fibrillation type: unspecified chronic Qualified Code(s): I48.20 - Chronic atrial fibrillation, unspecified (9) HTN (hypertension) Qualifiers: Hypertension type: primary hypertension Qualified Code(s): I10 - Essential (primary) hypertension (11) Constipation Qualifiers: Constipation type: unspecified constipation type Qualified Code(s): K59.00 - Constipation, unspecified (12) Hypothyroid Qualifiers: Hypothyroidism type: unspecified Qualified Code(s): E03.9 - Hypothyroidism, unspecified (13) Loss of hearing Qualifiers: Hearing loss type: unspecified Laterality: unspecified laterality Qualified Code(s): H91.90 - Unspecified hearing loss, unspecified ear (16) Insomnia Qualifiers: Insomnia type: unspecified Qualified Code(s): G47.00 - Insomnia, unspecified
--- NOTE | 2025-09-03 14:32 | CASEMGMT ---
Social Work- SW completed [facility], as pt is d/c to [facility]. SW remains available to follow. ROSALIA Perry
--- NOTE | 2025-09-03 16:37 | CASEMGMT ---
Social Work- SW completed palliative referral to [facility]. . ROSALIA Perry
[2025-09-03 17:36] VITALS: BP 141/88; PULSE 74; RESP 16; TEMP 36.9; O2SAT 96
[2025-09-03] MEDS: MELATONIN 3 MG TABLET PO (19:40)
--- NOTE | 2025-09-03 20:16 | NURSING ---
1947 pt discharged to sleep lab with incident via w/c per serviced of rehab staff
== END 2025-09-03 20:18 | disposition intermediate care facility (04) | DRG 57 ==
PROVIDERS: Admitting Provider Internal Medicine; PCP Family Medicine; Visit Provider Internal Medicine
DX: G20.A1 Parkinson's disease without dyskinesia, without mention of fluctuations (principal); I48.20 Chronic atrial fibrillation, unspecified; R13.10 Dysphagia, unspecified; Z51.5 Encounter for palliative care; E03.9 Hypothyroidism, unspecified; G47.52 REM sleep behavior disorder; E04.2 Nontoxic multinodular goiter; I10 Essential (primary) hypertension; E78.00 Pure hypercholesterolemia, unspecified; I95.1 Orthostatic hypotension; K59.09 Other constipation; M10.9 Gout, unspecified; F09 Unspecified mental disorder due to known physiological condition; Z86.73 Personal history of transient ischemic attack (TIA), and cerebral infarction without residual deficits; Z79.01 Long term (current) use of anticoagulants; R33.9 Retention of urine, unspecified; Z87.891 Personal history of nicotine dependence; H91.90 Unspecified hearing loss, unspecified ear; Z79.899 Other long term (current) drug therapy; Z79.890 Hormone replacement therapy; Z91.199 Patient's noncompliance with other medical treatment and regimen due to unspecified reason; G47.00 Insomnia, unspecified; R35.1 Nocturia
CPT/HCPCS: 36415; 80048; 80053; 81001; 82274; 83735; 84100; 84153; 84550; 85014; 85018; 85025; 87077; 87086; 87088; 87186; 92507; 92523; 94762; 97110; 97112; 97116; 97129; 97130; 97162; 97166; 97530; 97535; 97802; A4216; G0103

== ENCOUNTER → 2025-09-03 | Outpatient (CLI) | payer MEDICARE, OTHER, SELFPAY | END | disposition home or self-care (01) | LOC: SL 19:47 | PROVIDERS: PCP Family Medicine; Visit Provider Internal Medicine | DX: G47.30 Sleep apnea, unspecified (principal) | CPT/HCPCS: 95810 ==

== ENCOUNTER → 2025-09-16 05:00 | Outpatient (REF) | payer MEDICARE, OTHER, SELFPAY ==
--- OUTSIDE RECORDS SUMMARY | 2025-09-16 03:38 | XMS RPT_ITS | CCD ---
Author Organization [facility] Care Team Providers Care Cardiac Sonographer Name Role Phone Celso Hunt MD Primary Care Provider [phone] Celso Hunt Primary Care Provider Dr. Tala Parker Emergency Provider Dr. Jonah Calix Admit Provider Unavailable Dr. Jonah Calix Attending Provider Unavailable Dr. Jonah Calix Other Provider Unavailable Dr. Bryant Loredo Other Provider MD Gurjit Jefferson Other Provider Unavailable Dr. Nakul Hopper Other Provider MD Kateryna Jordan Other Provider Unavailable Dr. Enedina Armenta Other Provider Dr. Gissel Hoyos Other Provider Dr. Paul Clark Other Provider Dr. Camilla Tejada Other Provider Dr. Augusto Truong Other Provider Dr. Traci Freeman Other Provider MD Catie Geronimo Other Provider Dr. Andrew Patton Other Provider Dr. Niharika Freed Other Provider Dr. Ines Buckley Other Provider Dr. Trang De Jesus Other Provider Dr. Trenton Garces Other Provider Dr. Yolie Robins Other Provider Dr. Mauricio Tyson Other Provider Dr. Lila Melchor Other Provider Unavailable MD Navi Flores Other Provider Unavailable Dr. Yanick Galarza Attending Provider Dr. Bryant Loredo Attending Provider Celso Hunt MD Primary Care Provider Yanira Redd MD Unavailable Celso Hunt MD Primary Care Provider Celso Hunt MD Primary Care Provider Mamadou Wu PA-C Primary Care Provider Angelica Wu PA-C Primary Care Provider Unavailable Haagen SHOP SERVICE TECHNICIAN.ALIVIA, Manuela Unavailable Suppan SHOP SERVICE TECHNICIAN.MANAGER OF SECURITY, Daniella A Unavailable [phone] Suppan SHOP SERVICE TECHNICIAN.MANAGER OF SECURITY, Daniella A Primary Care Provi aliza Suppan SHOP SERVICE TECHNICIAN.MANAGER OF SECURITY, Daniella A Unavailable [phone] Suppan SHOP SERVICE TECHNICIAN.MANAGER OF SECURITY, Daniella A Primary Care Provi aliza Dr. Celso Hunt MD Primary Care Provider Dr. Annia Camara DO Emergency Provider Dr. Annia Camara DO Attending Provider Dr. Ruiz Swann DO Emergency Provider Dr. Celso Hunt MD Primary Care Physician Dr. Ruiz Swann DO Attending Physician Dr. Ruiz Swann [facility] Murray Garces MD Emergency Department Physician YANIRA REDD Attending Unavailable SUPPAN, DANIELLA A Primary Care Unavailable SADE SHINE Attending Unavailable SADE SHINE Referring Unavailable SUPPAN, DANIELLA A Primary Care Unavailable MANUELA PHAM Attending Unavailable SELF Referring Unavailable SUPPAN, DANIELLA A Primary Care Unavailable SUPPAN, DANIELLA A Primary Care Unavailable JOSE ANTONIO CHASE Attending Unavailable SUPPAN, DANIELLA A Primary Care Unavailable ANNETTE AVILES Attending Unavailable YANIRA REDD Attending Unavailable ANGELICA WU Primary Care Unavailable SUPPAN, DANIELLA A Referring Unavailable ANGELICA WU Primary Care Unavailable SUPPAN, DANIELLA A Attending Unavailable ANGELICA WU Primary Care Unavailable SADE SHINE Attending Unavailable SADE SHINE Referring Unavailable SUPPAN, DANIELLA A Primary Care Unavailable SUPPAN, DANIELLA A Attending Unavailable SUPPAN, DANIELLA A Primary Care Unavailable SUPPAN, DANIELLA A Referring Unavailable SUPPAN, DANIELLA A Primary Care Unavailable SUPPAN, DANIELLA A Primary Care Unavailable SUPPAN, DANIELLA A Primary Care Unavailable ALLEN NASCIMENTO Attending Unavailable Annia Camara Attending Unavailable [facility] Unavailable SemenKim vickers Admitting Unavaila ble SemenKim vickers Attending Unavaila ble [place]-GillAnita hall Consulting [facility] Unavailable SemenKim vickers Consulting Unavaila ble Pinduartembe-Anita Pagan Attending [facility] Unavailable Carlos Avalos Admitting Unavailable Carlos Avalos Consulting Unavailable Angelica Avila Attending Unavailable Angelica Avila Consulting Unavailable Carlos Avalos Admitting Unavailable Carlos Avalos Consulting Unavailable Sheila Ayala Attending Unavailable [facility] Care Unavailable Angelica Avila Consulting Unavailable Sheila Ayala Consulting Unavailable Carlos Avalos Attending Unavailable Ruiz Swann [facility] Care Unavailable Murray Garces Attending Unavailable [facility] Unavailable Carlos Avalos Admitting Unavailable Carlos Avalos Consulting Unavailable Sheila Ayala Attending Unavailable Angelica Avila Consulting Unavailable Allergies Allergy Classification Reported Allergen(s) Allergy Type Date of Onset Reaction(s) Facility (12 sources) ARIPiprazole; Translations: [ARIPIPRAZOLE] Drug Allergy 12-09-2024 [facility]atio [facility] (12 sources) Haloperidol; Translations: [HALOPERIDOL] Drug Allergy 12-09-2024 Contraindicatio [facility] (12 sources) Metoclopramide; Translations: [METOCLOPRAMIDE] Drug All[facility] Prochlorperazine ; Translations: [PROCHLORPERAZIN E] Drug All[facility] Promethazine; Translations: [PROMETHAZINE] Drug Allergy 12-09-20[facility] OLANZapine; Translations: [OLANZAPINE] Drug Allergy [facility]-20[facility] Medications Current Medications Medication Drug Class(es) Dates Sig (Normalized) Sig (Original) allopurinol 100 mg oral tablet (5 sources) Xanthine Oxidase Inhibitor Start: 10-21-2023 take 1 tablet by mouth once daily at mealtime amLODIPine 10 mg oral tablet (20 sources) Dihydropyridine Calcium Channel Larry Start: 04-19-2022 Start: 04-26-2021 End: 06-10-2024 take 1 tablet by mouth once daily amLODIPine (NORVASC) 10 mg tablet Indications: Essential hypertension Take 1 tablet by mouth once daily. 90 tablet 3 06/10/2024 Active Start: 10-12-2020 End: 01-26-2021 take 1 tablet by mouth once daily amLODIPine (NORVASC) 10 mg tablet Indications: Essential hypertension Take 1 tablet by mouth once daily. 90 tablet 10/12/2020 01/26/2021 Discontinued Comment on above: Take 1 tablet by paty th once daily. apixaban 5 mg oral tablet (20 sources) Factor Xa Inhibitor Start: 12-09-2024 take 1 tablet by mouth twice daily apixaban (ELIQUIS) 5 mg tab(s) Take 1 tablet by mouth two times a day. 12/09/2024 Active Start: 02-25-2024 take 2.5 mg by mouth twice daily Start: 10-21-2023 End: 12-05-2024 take 1 tablet by mouth twice daily Apixaban (Eliquis) 5 mg Tablet Discontinued 5 mg PO TWICE A DAY 120 60 0 October 21, 2023 1:00am February 25, 2024 5:35pm Comment on above: Take 1 tablet by paty two times a day. bisacodyl 10 mg rectal suppository (3 sources) Stimulant Laxative Start: 06-18-20 bisacodyl (DULCOLAX, BISACODYL,) 10 mg supp Indications: Chronic constipation 1 suppository by RECTAL route once daily as needed for constipation. 8 each 1 06/18/2025 Active carbidopa 25 mg / levodopa 100 mg oral tablet (20 sources) Aromatic Amino Acid Decarboxylation Inhibitor, Aromatic Amino Acid Start: 12-28-19 End: 06-05-20 take 1 tablet by mouth four times daily carbidopa-levodopa (SINEMET 25-100) 25-100 mg per tablet Indications: Parkinson's disease (HCC) Take 1 tablet by mouth four times daily. 360 tablet 3 12/27/2022 06/05/2024 Discontinued (Adjust Sig - Block E-Cancel) Start: 04-19-2022 take 1 tablet by paty three times daily Carbidopa-Levodopa Active 1 TABLET PO THREE TIMES A DAY April 19, 2022 12:00am Start: 08-13-2021 End: 09-17-2024 Start: 02-14-2020 End: 02-11-2021 take 1 tablet by mouth three times daily carbidopa-levodopa (SINEMET 25-100) 25-100 mg per tablet Indications: Parkinson's disease (HCC) Take 1 tablet by mouth three times daily. 270 tablet 3 02/14/2020 02/11/2021 Discontinued Comment on above: Take 1 tablet by paty three times daily. Take 1 tablet by paty four times daily. ciprofloxacin 500 mg oral tablet (3 sources) Quinolone Antimicrobial Start: 03-20-20 take 1 tablet by mouth twice daily docusate sodium 50 mg / sennosides, retirement 8.6 mg oral tablet (2 sources) Start: 06-11-20 finasteride 5 mg oral tablet (3 sources) 5-alpha Reductase Inhibitor Start: 03-20-20 take 1 tablet by mouth once daily hydroCHLOROthiazide 50 mg / triamterene 75 mg oral tablet (20 sources) Potassium-sparing Diuretic, Thiazide Diuretic Start: 04-19-20 take 1 tablet by mouth once daily Triamterene-Hy drochlorothiaz id Active 1 TABLET PO DAILY April 19, 2022 12:00am Start: 10-04-2021 End: 06-10-2024 Start: 09-21-2020 End: 03-22-2021 take 1 tablet by mouth once daily triamterene-hydroCHLOROthiazide (MAXZIDE) 75-50 mg per tablet Take 1 tablet by mouth once daily. 90 tablet 1 09/21/2020 03/22/2021 Discontinued Comment on above: Take 1 tablet by paty once daily. levothyroxine sodium 0.1 mg oral tablet (20 sources) l-Thyroxine Start: 09-24-20 End: 12-12-19 take 1 tablet by mouth once daily for thyroid dysfunction levothyroxine (SYNTHROID) 100 mcg tablet Indications: Hypothyroidism, acquired Take 1 tablet by mouth once daily. Take on empty stomach. For Thyroid. 90 tablet 3 12/12/2024 12/12/2025 Active Start: 06-11-2024 End: 10-17-2024 take 1 tablet by mouth once daily for thyroid dysfunction levothyroxine (SYNTHROID) 75 mcg tablet Indications: Hypothyroidism, acquired Take 1 tablet by mouth once daily. Take on empty stomach. For Thyroid. 30 tablet 09/17/2024 09/24/2024 Discontinued Start: 10-04-2021 End: 06-11-2024 take 1 tablet by mouth once daily Start: 04-01-2020 End: 03-22-2021 take 1 tablet by mouth once daily for thyroid dysfunction levothyroxine (SYNTHROID) 50 mcg tablet Indications: Hypothyroidism, acquired Take 1 tablet by mouth once daily. Take on empty stomach. For Thyroid. 90 tablet 3 04/01/2020 03/22/2021 Discontinued Comment on above: Take 1 tablet by paty once daily. Take on empty stomach. For Thyroid. lisinopril 5 mg oral tablet (20 sources) Angiotensin Converting Enzyme Inhibitor Start: 2023 End: 2025 take 1 tablet by mouth once daily methylPREDNISolone (2 sources) Corticosteroid Start: 2024 End: 2024 methylPREDNISolone (MEDROL DOSE-PACK) 4 mg Dose-Pack Indications: Gout with manifestations Take as instructed per package. For gout flare 21 tablet 12/10/2024 12/16/2024 Active 24 hr metoprolol succinate 50 mg extended release oral tablet (20 sources) beta-Adrenergic Larry Start: 2023 End: 2025 take 1 tablet by mouth once daily metoprolol succinate ER (TOPROL XL) 50 mg 24 hr tablet Take 1 tablet by mouth once daily. 90 tablet 3 06/18/2025 06/18/2026 Active Comment on above: Take 1 tablet by paty once daily. oxymetazoline hydrochloride 0.5 mg/ml nasal spray (2 sources) Start: 2024 oxymetazoline (AFRIN, OXYMETAZOLINE,) 0.05 % nasal spray Use 2 sprays in the nose two times a day. 22 mL 06/30/2025 Active perflutren lipid microspheres 1.3 mL in NaCl (PF) 0.9% 10 mL injection (DEFINITY) (8 sources) Start: 2020 End: 2021 perflutren lipid microspheres 1.3 mL in NaCl (PF) 0.9% 10 mL injection (DEFINITY) polyethylene glycol 3350 66033 mg powder for oral solution (5 sources) Osmotic Laxative Start: 2024 polyethylene glycol 3350 (MIRALAX) 17 gram/dose powder Indications: Chronic constipation Dissolve dose in 4 - 8 ounces of liquid and take 1-2 times daily until stooling, then decrease to once daily. 578 g 3 06/18/2025 Active Start: 06-11-2025 predniSONE 10 mg oral tablet (10 sources) Start: 02-19-2025 End: 02-28-2025 predniSONE (DELTASONE) 10 mg tablet Take 4 tabs daily for 3 days, then 2 tabs daily for 3 days, then 1 tab daily for 3 days with food. 21 tablet 02/19/2025 02/28/2025 Active Start: 01-13-2025 End: 01-18-2025 take 2 tablets by mouth once daily predniSONE (DELTASONE) 20 mg tablet Indications: Acute idiopathic gout of right foot Take 2 tablets by mouth once daily for 5 days. 10 tablet 01/13/2025 01/18/2025 Active Start: 01-25-2024 End: 02-03-2024 predniSONE (DELTASONE) 10 mg tablet Take 4 tabs daily for 3 days, then 2 tabs daily for 3 days, then 1 tab daily for 3 days with food. 21 tablet 0 01/25/2024 02/03/2024 Active Start: 04-04-2023 End: 04-16-2023 predniSONE (DELTASONE) 10 mg tablet Take 4 tabs daily x 3 days, then 3 tabs x 3 days, 2 tabs x 3 days, then 1 tab x3 days with food. 30 tablet 0 04/04/2023 04/16/2023 Start: 11-24-2022 End: 11-29-2022 take 2 tablets by mouth once daily predniSONE (DELTASONE) 20 mg tablet Indications: Acute idiopathic gout of multiple sites Take 2 tablets by mouth once daily for 5 days. 10 tablet 0 11/24/2022 11/29/2022 Active Start: 04-26-2022 End: 05-05-2022 predniSONE (DELTASONE) 10 mg tablet Take 4 tabs daily for 3 days, then 2 tabs daily for 3 days, then 1 tab daily for 3 days with food. 21 tablet 0 04/26/2022 05/05/2022 Active Start: 02-03-2022 End: 02-08-2022 take 2 tablets by mouth once daily predniSONE (DELTASONE) 20 mg tablet Indications: Acute gout of right ankle, unspecified cause Take 2 tablets by mouth once daily for 5 days. 10 tablet 0 02/03/2022 02/08/2022 Active Start: 01-25-2021 End: 05-24-2021 predniSONE (DELTASONE) 10 mg tablet Take 4 tabs daily for 3 days, then 2 tabs daily for 3 days, then 1 tab daily for 3 days with food. 21 tablet 01/25/2021 05/24/2021 Discontinued Comment on above: Take 2 tablets by [facility] once daily for 5 days. Take 4 tabs daily fo r 3 days, then 2 tabs daily for 3 days, then 1 tab daily for 3 days with food. Take 4 tabs daily x 3 days, then 3 tabs x 3 days, 2 tabs x 3 days, then 1 tab x3 days with food. 125 ml sodium chloride 9 mg/ml prefilled syringe (8 sources) Start: 05-06-2021 End: 08-05-2022 sodium chloride 0.9 % (flush) 10 mL (BD POSIFLUSH) tamsulosin hydrochloride 0.4 mg oral capsule (3 sources) alpha-Adrenergic Larry Start: 03-20-2024 take 1 capsule by mouth once daily Completed/Discontinued Medications Medication Drug Class(es) Dates Sig (Normalized) Sig (Original) acetaminophen 325 mg / HYDROcodone bitartrate 5 mg oral tablet (11 sources) Opioid Agonist Start: 09-26-2022 End: 10-19-2023 Hydrocodone-Acetamino phen 5-325 mg tablet Discontinued 1 {tbl} PO Q8H 9 3 September 26, 2022 October 19, 2023 10:00am Acute postoperative pain Other acute postprocedural pain Start: 09-26-2022 End: 10-19-2023 take 1 tablet by mouth every eight hours Hydrocodone-Acetaminophen Discontinued 1 TABLET PO Q8H 9 September 26, 2022 October 19, 2023 10:00am Start: 09-26-2022 End: 12-27-2022 HYDROcodone-acetaminophen (N ORCO) 5-325 mg per tablet aspirin 81 mg delayed release oral tablet (20 sources) Platelet Aggregation Inhibitor, Nonsteroidal Anti-inflammatory Drug Start: 05-16-2023 End: 06-05-2024 take 1 tablet by mouth once daily aspirin, enteric coated (ADULT LOW DOSE ASPIRIN) 81 mg EC tablet Indications: TIA (transient ischemic attack) Take 1 tablet by mouth once daily. 100 tablet 3 05/16/2023 06/05/2024 Discontinued (Discontinued by another Health Care Provider) Start: 04-19-2022 End: 03-13-2024 Aspirin 81 mg tablet,delayed release (DR/EC) Discontinued 81 {tbl} PO DAILY April 19, 2022 12:00am March 13, 2024 2:20pm [facility] Start: 07-16-2011 End: 05-09-2022 take 1 tablet by mouth once daily aspirin, enteric coated (ADULT LOW DOSE ASPIRIN) 81 mg EC tablet Indications: TIA (transient ischemic attack) Take 1 tablet by mouth once daily. 100 tablet 3 05/16/2023 Active Comment on above: Take 1 tablet by paty th once daily. atenolol 25 mg oral tablet (20 sources) beta-Adrenergic Larry Start: 04-19-2022 End: 03-13-2024 Atenolol 25 mg tablet Discontinued 25 {tbl} PO DAILY April 19, 2022 12:00am March 13, 2024 2:20pm blood pressure Start: 04-26-2021 End: 11-21-2023 take 1 tablet by mouth once daily atenolol (TENORMIN) 25 mg tablet Take 1 tablet by mouth once daily. 90 tablet 3 05/16/2023 11/21/2023 Discontinued Start: 08-13-2020 End: 02-11-2021 take 1 tablet by mouth once daily atenolol (TENORMIN) 25 mg tablet Take 1 tablet by mouth once daily. 90 tablet 1 08/13/2020 02/11/2021 Discontinued Comment on above: Take 1 tablet by paty th once daily. atorvastatin 80 mg oral tablet (20 sources) HMG-CoA Reductase Inhibitor Start: End: take 1 tablet by mouth at bedtime Atorvastatin 80 mg Tablet Discontinued 80 mg PO AT BEDTIME 60 60 0 October 21, 2023 1:00am March 13, 2024 2:21pm colchicine 0.6 mg oral tablet (3 sources) Start: End: colchicine 0.6 mg tablet Indications: Acute idiopathic gout of multiple sites Take 2 tabs by mouth, followed by 1 tab one hr later for gout flare. February repeat in 1 week. Wait 12hr after gout flare before resuming prophylaxis med (allopurinol). 6 tablet 11 09/30/2024 12/10/2024 Discontinued (Discontinued by Patient) colchicine 0.5 mg / probenecid 500 mg oral tablet (18 sources) Start: End: take 1 tablet by mouth twice daily probenecid-colchici ne (COL-PROBENECID) 500-0.5 mg per tablet Take 1 tablet by mouth two times a day. 60 tablet 5 10/24/2023 06/10/2024 Discontinued (Discontinued by Patient) Comment on above: Take 1 tablet by paty two times a day. esomeprazole 40 mg delayed release oral capsule (9 sources) Proton Pump Inhibitor Start: End: take 1 capsule by mouth once daily Esomeprazole Magnesium (Nexium) 40 mg capsule,delayed release(DR/EC) Discontinued 40 mg PO DAILY 30 0 April 20, 2022 12:00am October 19, 2023 10:00am naproxen sodium 220 mg oral tablet (17 sources) Nonsteroidal Anti-inflammatory Drug End: take 1 tablet by mouth twice daily at mealtime naproxen sodium (ANAPROX) 220 mg tablet Take 220 mg by mouth twice daily with meals. 12/27/2022 Discontinued (Course of therapy completed) Comment on above: Take 220 mg by mouth twice daily with meals. microencapsulated potassium chloride 20 meq extended release oral tablet (6 sources) Start: End: take 1 tablet by mouth twice daily at mealtime Potassium Chloride 20 mEq Tablet,Er Particles/Crystals Discontinued 20 meq PO TWICE DAILY WITH MEALS 14 7 0 October 21, 2023 1:00am March 13, 2024 2:21pm Start: 11-01-2019 End: 02-11-2021 take 1 capsule by mouth twice daily potassium chloride SR (MICRO-K) 8 mEq cpER Take 1 capsule by mouth twice daily. 60 capsule 5 11/01/2019 02/11/2021 Discontinued Problems Active Problems Problem Classification Problem Date Documented Da te Episodic/Chronic Abdominal pain (20 sources) Epigastric pain; Translations: [Epigastric pain] Onset: 2 Episodic Acute cerebrovascular disease (10 sources) Cerebrovascular accident; Translations: [Cerebral infarction, unspecified] Onset: 5 10-20-2023 Chronic Administrative/social admission (1 source) Other specified counseling; Translations: [Other specified counseling] Onset: 5 Episodic Anxiety disorders (20 sources) Anxiety; Translations: [Anxiety disorder, unspecified] Onset: 9 08-21-2019 Chronic Biliary tract disease (20 sources) Cholelithiasis without obstruction; Translations: [Calculus of gallbladder without cholecystitis without obstruction] Onset: 8 Resolved: 3 11-30-2017 Episodic Cancer of bladder (1 source) Malignant tumor of urinary bladder; Translations: [Malignant neoplasm of bladder, unspecified] 06-10-2024 Chronic Cardiac dysrhythmias (20 sources) Atrial fibrillation; Translations: [Unspecified atrial fibrillation] Onset: 4 10-19-2023 Chronic Delirium, dementia, and amnestic and other cognitive disorders (1 source) Unspecified 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; Translations: [Unspecified 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] Onset: 5 Chronic Diseases of mouth; excluding dental (3 sources) Excessive salivation; Translations: [Disturbances of salivary secretion] Episodic Disorders of lipid metabolism (20 sources) Hyperlipidemia; Translations: [Hyperlipidemia, unspecified] Onset: 7 09-25-2015 Chronic Esophageal disorders (20 sources) Gastroesophageal reflux disease; Translations: [Gastro-esophageal reflux disease without esophagitis] Onset: 4 04-28-2022 Chronic Essential hypertension (20 sources) Essential hypertension; Translations: [Essential (primary) hypertension] Onset: 7 Resolved: 8 10-05-2015 Chronic Genitourinary symptoms and ill-defined conditions (5 sources) Blood in urine; Translations: [Hematuria, unspecified] Onset: 5 02-25-2024 Episodic Gout and other crystal arthropathies (20 sources) Gout; Translations: [Gout, unspecified] Onset: 7 10-19-2016 Chronic Malaise and fatigue (3 sources) Other malaise; Translations: [Weakness] Onset: 5 Episodic Occlusion or stenosis of precerebral arteries (20 sources) Bilateral stenosis of carotid arteries; Translations: [Occlusion and stenosis of bilateral carotid arteries] Onset: 1 05-31-2021 Chronic Other aftercare (1 source) Encounter for palliative care; Translations: [Encounter for palliative care] Onset: 5 Episodic Other circulatory disease (2 sources) Orthostatic hypotension; Translations: [Orthostatic hypotension] 12-09-2024 Episodic Other circulatory disease (2 sources) Orthostatic hypotension; Translations: [Orthostatic hypotension] Onset: 5 Episodic Other diseases of bladder and urethra (4 sources) Mass of urinary bladder; Translations: [Other specified disorders of bladder] 02-25-2024 Chronic Other ear and sense organ disorders (1 source) Unspecified hearing loss, unspecified ear; Translations: [Unspecified hearing loss, unspecified ear] Onset: 5 Chronic Other eye disorders (20 sources) Posterior vitreous detachment of left eye; Translations: [Vitreous degeneration, left eye] Onset: 8 01-02-2018 Chronic Other eye disorders (20 sources) Bilateral vitreous floaters; Translations: [Other vitreous opacities, bilateral] Onset: 8 01-02-2018 Chronic Other gastrointestinal disorders (8 sources) Constipation; Translations: [Constipation, unspecified] 06-05-2024 Episodic Other gastrointestinal disorders (2 sources) Chronic constipation; Translations: [Other constipation] 12-10-2024 Episodic Other gastrointestinal disorders (1 source) Other constipation; Translations: [Chronic constipation] Onset: 5 Episodic Other gastrointestinal disorders (3 sources) Constipation, unspecified; Translations: [Constipation, unspecified constipation type] Onset: 5 Episodic Other liver diseases (20 sources) Steatosis of liver; Translations: [Fatty (change of) liver, not elsewhere classified] Onset: 8 11-30-2017 Chronic Other nervous system disorders (20 sources) H/O: brain disorder; Translations: [Personal history of other diseases of the nervous system and sense organs] Onset: 4 09-25-2022 Episodic Other nervous system disorders (4 sources) Personal history of other diseases of the nervous system and sense organs; Translations: [Personal history of other disorders of nervous system and sense organs] Onset: 5 Episodic Other non-traumatic joint disorders (1 source) Shoulder pain; Translations: [Pain in right shoulder] Episodic Other non-traumatic joint disorders (1 source) Acute ankle pain; Translations: [Pain in left ankle and joints of left foot] 01-25-2021 Episodic Other nutritional; endocrine; and metabolic disorders (1 source) Hypophosphatemia; Translations: [Other disorders of phosphorus metabolism] 12-05-2023 Chronic Other nutritional; endocrine; and metabolic disorders (1 source) Hyperuricemia without signs of inflammatory arthritis and tophaceous disease; Translations: [Hyperuricemia without signs of inflammatory arthritis and tophaceous disease] Onset: 5 Episodic Other screening for suspected conditions (not mental disorders or infectious disease) (20 sources) Patient encounter status; Translations: [Encounter for screening for malignant neoplasm of colon] Onset: 4 Episodic Other upper respiratory disease (3 sources) Bleeding from nose; Translations: [Epistaxis] 06-30-2025 Episodic Other upper respiratory disease (2 sources) Epistaxis; Translations: [Epistaxis] Onset: 5 Episodic Parkinson`s disease (20 sources) Parkinson's disease; Translations: [Parkinson's disease] Onset: 9 08-21-2019 Chronic Parkinson`s disease (1 source) Parkinson`s disease; Translations: [Parkinson's disease without dyskinesia or fluctuating manifestations (HCC)] Onset: 4 Residual codes; unclassified (20 sources) REM sleep behavior disorder; Translations: [REM sleep behavior disorder] Onset: 9 08-21-2019 Chronic Residual codes; unclassified (1 source) Confusional state; Translations: [Disorientation, unspecified] 07-15-2025 Episodic Residual codes; unclassified (1 source) Disorientation, unspecified; Translations: [Confusion] Onset: 5 Episodic Residual codes; unclassified (1 source) Insomnia, unspecified; Translations: [Insomnia, unspecified] Onset: 5 Episodic Superficial injury; contusion (20 sources) Abrasion of upper limb; Translations: [Abrasion of right upper arm, initial encounter] Onset: 4 04-06-2023 Episodic Thyroid disorders (20 sources) Acquired hypothyroidism; Translations: [Hypothyroidism, unspecified] Onset: 1 05-06-2021 Chronic Transient cerebral ischemia (20 sources) Cerebral ischemia; Translations: [Transient cerebral ischemic attack, unspecified] Onset: 7 12-22-2006 Chronic Unclassified (1 source) Chronic atrial fibrillation, unspecified; Translations: [Chronic atrial fibrillation, unspecified] Onset: 5 Unclassified (1 source) Patient's noncompliance with other medical treatment and regimen due to unspecified reason; Translations: [Patient's noncompliance with other medical treatment and regimen due to unspecified reason] Onset: 5 Urinary tract infections (1 source) Urinary tract infection, site not specified; Translations: [Urinary tract infection, site not specified] Onset: 5 Episodic Past or Other Problems Problem Classification Problem Date Documented Da te Episodic/Chronic Calculus of urinary tract (20 sources) Kidney stone; Translations: [Calculus of kidney] Onset: 06-08-2007 06-08-2007 Episodic Other hereditary and degenerative nervous system conditions (20 sources) Restless legs; Translations: [Restless legs syndrome] Onset: 08-21-2019 Resolved: 02-11-2022 08-21-2019 Chronic Results Test Name Value Interpretation Reference Range Facility Basic Metabolic Profile (BMP )on 08-26-2025 BUN/CRE 22.9 RATIO High 10-20 [facility] Comment on above: Performed By: #### L 501.9910, L100.0100, L500.2500 #### [facility] [address] [place], [address] Calcium [Mass/Vol] 8.8 mg/dL Normal 7.6-11.0 [facility] Comment on above: Performed By: #### L 501.9910, L100.0100, L500.2500 #### [facility] [address] [place], [address] Chloride [Moles/Vol] 105 mmol/L Normal 98-108 [facility] Comment on above: Performed By: #### L 501.9910, L100.0100, L500.2500 #### [facility] [address] [place], [address] CO2 [Moles/Vol] 24.4 mmol/L Normal 21.0-32.0 [facility] Comment on above: Performed By: #### L 501.9910, L100.0100, L500.2500 #### [facility] [address] [place], [address] Creatinine [Mass/Vol] 0.92 mg/dL Normal 0.70-1.20 [facility] Comment on above: Performed By: #### L 501.9910, L100.0100, L500.2500 #### [facility] [address] [place], [address] ECRCL 69.43 ml/min Normal 50-250 [facility] Comment on above: Performed By: #### L 501.9910, L100.0100, L500.2500 #### [facility] [address] [place], [address] GAP 10 Normal 5-15 [facility] Comment on above: Performed By: #### L 501.9910, L100.0100, L500.2500 #### [facility] [address] [place], [address] GFR/1.73 sq M.predicted among non-blacks MDRD (S/P/Bld) [Vol rate/Area] 85 mL/min/{1.73_m2} Normal >60 [facility] Comment on above: Result Comment: mL/m in/1.73m2 CKD-EPI Creatinine Equation (2020) Performed By: #### L 501.9910, L100.0100, L500.2500 #### [facility] [address] [place], [address] Glucose [Mass/Vol] 89 mg/dL Normal 70-99 [facility] Comment on above: Performed By: #### L 501.9910, L100.0100, L500.2500 #### [facility] [address] [place], [address] Potassium [Moles/Vol] 4.0 mmol/L Normal 3.3-5.1 [facility] Comment on above: Performed By: #### L 501.9910, L100.0100, L500.2500 #### [facility] [address] [place], [address] Sodium [Moles/Vol] 139 mmol/L Normal 133-145 [facility] Comment on above: Performed By: #### L 501.9910, L100.0100, L500.2500 #### [facility] [address] [place], [address] Urea nitrogen [Mass/Vol] 21 mg/dL High 4-19 [facility] Comment on above: Performed By: #### L 501.9910, L100.0100, L500.2500 #### [facility] [address] [place], [address] CBC W/Diff, Automatedon 11-10 16-2024 Absolute Lymph 1.46 X10 3/uL Normal 0.83-4.51 [facility] Comment on above: Performed By: #### L 501.9910, L100.0100, L500.2500 #### [facility] [address] [place], [address] Absolute Neut 4.0 X10 3/uL Normal 2.0-7.7 [facility] Comment on above: Performed By: #### L 501.9910, L100.0100, L500.2500 #### [facility] [address] [place], [address] Basophils/100 WBC (Bld) 1.1 % High 0-1 [facility] Comment on above: Performed By: #### L 501.9910, L100.0100, L500.2500 #### [facility] [address] [place], [address] Eosinophils/100 WBC (Bld) 1.9 % Normal 0-5 [facility] Comment on above: Performed By: #### L 501.9910, L100.0100, L500.2500 #### [facility] [address] [place], [address] Erythrocyte distribution width (RBC) [Ratio] 13.6 % Normal 11.6-14.6 [facility] Comment on above: Performed By: #### L 501.9910, L100.0100, L500.2500 #### [facility] [address] [place], [address] Hematocrit (Bld) [Volume fraction] 42.4 % Normal 40-54 [facility] Comment on above: Performed By: #### L 501.9910, L100.0100, L500.2500 #### [facility] [address] [place], [address] Hemoglobin (Bld) [Mass/Vol] 13.7 g/dL Normal 13.0-16.5 [facility] Comment on above: Performed By: #### L 501.9910, L100.0100, L500.2500 #### [facility] [address] [place], [address] IG% 0.600 Normal 0.0-0.9 [facility] Comment on above: Result Comment: IG% - Immature Granulocytes (promyelocytes, myelocytes and metamyelocytes) > 1% indicates that a LEFT SHIFT is Present. Performed By: #### L 501.9910, L100.0100, L500.2500 #### [facility] [address] [place], [address] Lymphocytes/100 WBC (Bld) 23.3 % Normal 19-41 [facility] Comment on above: Performed By: #### L 501.9910, L100.0100, L500.2500 #### [facility] [address] [place], [address] MCH (RBC) [Entitic mass] 27.1 pg Normal 27.0-32.0 [facility] Comment on above: Performed By: #### L 501.9910, L100.0100, L500.2500 #### [facility] [address] [place], [address] MCHC (RBC) [Mass/Vol] 32.3 g/dL Normal 32-36 [facility] Comment on above: Performed By: #### L 501.9910, L100.0100, L500.2500 #### [facility] [address] [place], [address] MCV (RBC) [Entitic vol] 84.0 fL Normal 80-94 [facility] Comment on above: Performed By: #### L 501.9910, L100.0100, L500.2500 #### [facility] [address] [place], [address] Monocytes/100 WBC (Bld) 9.4 % Normal 0-10 [facility] Comment on above: Performed By: #### L 501.9910, L100.0100, L500.2500 #### [facility] [address] [place], [address] Neutrophils/100 WBC (Bld) 63.7 % Normal 47-70 [facility] Comment on above: Performed By: #### L 501.9910, L100.0100, L500.2500 #### [facility] [address] [place], [address] Nucleated RBC (Bld) [#/Vol] 0 10*3/uL Normal 0-5 [facility] Comment on above: Performed By: #### L 501.9910, L100.0100, L500.2500 #### [facility] [address] [place], [address] Platelet mean volume (Bld) [Entitic vol] 9.0 fL Normal 6.2-12.0 [facility] Comment on above: Performed By: #### L 501.9910, L100.0100, L500.2500 #### [facility] [address] [place], [address] Platelets (Bld) [#/Vol] 373 10*3/uL Normal 150-450 [facility] Comment on above: Performed By: #### L 501.9910, L100.0100, L500.2500 #### [facility] [address] [place], [address] RBC (Bld) [#/Vol] 5.05 10*6/uL Normal 4.6-6.2 [facility] Comment on above: Performed By: #### L 501.9910, L100.0100, L500.2500 #### [facility] [address] [place], [address] RDW SD 41.9 fl Normal 35.1-43.9 [facility] Comment on above: Performed By: #### L 501.9910, L100.0100, L500.2500 #### [facility] [address] [place], [address] WBC (Bld) [#/Vol] 6.3 10*3/uL Normal 4.4-11.0 [facility] Comment on above: Performed By: #### L 501.9910, L100.0100, L500.2500 #### [facility] [address] [place], [address] [facility] TRACI DELA CRUZ JR. ([id number]) 1950 M Date Time Provider Department 08/26/25 DANIELLA SAMUELS [facility] During your visit today, we recorded the following information about you: Daniella Samuels APRN.[facility] 08/26/2025 1:54 PM Signed Patient was seen by palliative care on August 25, 2025 for: Hyperuricemia, Acute cholecystitis Loss of hearing Wears glasses Cancer Gout Thyroid disease Bladder disease High cholesterol Short of breath Former smoker History of atrial flutter Hypertension Hypothyroid Parkinson's. Patient complains of poor appetite and weakness. Occasional dizziness. Patient scored 15 out of 30 on the [place] cognitive test indicating moderate cognitive dysfunction. It is believed that he forgets to take his medicines he only takes his allopurinol when he is having a flareup. He does have uric acid of 7.2 and gouty arthritis. He may lack the insight to the importance of taking his medication regularly. He does have Parkinson's disease with bilateral hand tremors. I feel the patient would benefit from outpatient palliative care services which the patient is agreeable to. He does have a life expectancy greater than 18 months. We will provide him a choice of agencies that are able to meet his needs. They are not going to make me do anything I do not want to are they? Patient was seen at [facility] emergency department on May with complaint of worsening weakness and difficulty with ambulation x 3 days. He was found to have slight elevation in his white blood count of 13 and a total bilirubin of 1.3. His CT scan in the emergency department was negative for any acute process. History of previous CVAs he was last hospitalized in October 2023 for CVA, A-fib and is on Eliquis, Parkinson's disease, hypertension, bladder cancer with resection of March 20, 2024. He also has hypothyroidism. He did have an echocardiogram done in October 2023 which showed diastolic dysfunction stage I and an ejection fraction of 60%. He has been living alone. It was reported overnight that the patient did have some confusions which he removed all of his clothing was laying on top of his sheet negative. Nursing staff was able to intervene and he insisted that he still does drive but not at night because of his vision. Hemoglobin 12.9, hematocrit 38.4. BUN 25 creatinine and GFR are within normal limits. Albumin decreased at 3.1, magnesium 2.3 AST slightly elevated 47. Diet consult was placed. Patient does have chronic constipation and moves his bowels twice a week. Bowel regime has been ordered. He also has lower extremity pitting edema. He is on Norvasc which may be contributing to his peripheral edema. Lower extremities were wrapped with an Rosy wrap. He was given 2 units of Rocephin and started on cefdinir. Culture did not show any growth. No POA Plan: Debility, noncompliance, urinary tract infection, generalized weakness, atrial fibrillation chronic, Parkinson's disease, will set up bubble packs from pharmacy. Alarm reminders to help him remember to take his medication. Patient would benefit from assisted living. Community assistance such as area on aging and Meals on Wheels. Allergies As of Date: 08/26/2025 Noted Allergy Reaction ABILIFY (ARIPIPRAZOLE) 12/09/2024 15 - Contraindication-Med ical Mai* Comments: People with Parkinson's disease should not take this or other antipsychotics except Nuplazid, Seroquel, and Clozaril can be prescribed. COMPAZINE (PROCHLORPERAZINE) 12/09/2024 15 - Contraindication-Med ical Mai* Comments: This should not be given to people with Parkinson's disease. If not otherwise contraindicated, Zofran should be given instead. HALDOL (HALOPERIDOL) 12/09/2024 15 - Contraindication-Med ical Mai* Comments: .ewhal PHENERGAN (PROMETHAZINE) 12/09/2024 15 - Contraindication-Med ical Mai* Comments: This should not be given to people with Parkinson's disease. If not otherwise contraindicated, Zofran should be given instead. REGLAN (METOCLOPRAMIDE) 12/09/2024 15 - Contraindication-Med ical Mai* Comments: This should not be given to people with Parkinson's disease. If not otherwise contraindicated and for nausea, Zofran should be given instead. ZYPREXA (OLANZAPINE) 06/09/2025 15 - Contraindication-Med ical Mai* Date Reviewed: 06/30/2025 Reviewed by: Jose Antonio Chase APRN.MANAGER OF SECURITY - Fully Assessed Prescriptions as of 08/26/2025 - oxymetazoline (AFRIN, OXYMETAZOLINE,) 0.05 % nasal [...] decrease to once daily. - bisacodyl (DULCOLAX, B (more content not included)... Normal [facility] PSA,Total - Annual Screenon 08-26-2025 PSA,TOT SCREEN 4.30 ng/mL High 0.02-4.00 [facility] Comment on above: Result Comment: This test was performed using the [employer] tPSA method. Measured values of a patient??sample can vary depending on the testing procedure used. PSA values determined on patient samples by different testing procedures cannot be used interchangeably. If there is a change in PSA assays while monitoring therapy, sequential testing should be performed to confirm baseline values. Performed By: #### L 501.9910, L100.0100, L500.2500 #### [facility] [address] [place], [address] Stool Occult Blood iFOBon STOB Negative Normal [facility] Comment on above: Performed By: #### L 500.2500, L100.0500 #### [facility] [address] [place], [address] Urinalysis, Completeon 08-26 EPI,SQUAMOUS 0-5 SEEN Normal 0-5 [facility] Comment on above: Order Comment: NATA TER SPECIMEN Performed By: #### L 400.0001 #### [facility] [address] [place], [address] RBC 10-25 SEEN Normal 0-5 [facility] Comment on above: Order Comment: NATA TER SPECIMEN Performed By: #### L 400.0001 #### [facility] [address] [place], [address] WBC 0-5 SEEN Normal 0-5 [facility] Comment on above: Order Comment: NATA TER SPECIMEN Performed By: #### L 400.0001 #### [facility] [address] [place], [address] BACTERIA 0 SEEN Normal None Seen [facility] Comment on above: Order Comment: NATA TER SPECIMEN Performed By: #### L 400.0001 #### [facility] [address] [place], [address] Mucus Ql (Urine sed) 0 SEEN Normal [facility] Comment on above: Order Comment: [facility] SPECIMEN Performed By: #### L 400.0001 #### [facility] [address] [place], [address] Alex [facility]-20[facility] TRACI DELA CRUZ JR. ([id number]) 1950 M Date Time Provider Department 08/25/25 [facility] During your visit today, we recorded the following information about you: Luz Marina Alexander RN 08/25/2025 11:[address] Pichardo from [facility] inpatient rehab calls and is requesting provider to give Dr. Pichardo a call back at [phone]. Dr. Pichardo would like to discuss patient with provider. JESSIKA Lorenz Jacqueline A, MELLISA.[facility] 08/25/2025 3:42 PM Signed In rehab for Parkinsons Not taking medications as suppose to, was very debilitated MOCA 15/30 Orthostatic hypotension Rigidity better but tremors are not well controlled Looking into assisted living for help with medications Would like to try increasing sinemet to 4 x day Allergies As of Date: 08/25/2025 Noted Allergy Reaction ABILIFY (ARIPIPRAZOLE) 12/09/2024 15 - Contraindication-Med ical Mai* Comments: People with Parkinson's disease should not take this or other antipsychotics except Nuplazid, Seroquel, and Clozaril can be prescribed. COMPAZINE (PROCHLORPERAZINE) 12/09/2024 15 - Contraindication-Med ical Mai* Comments: This should not be given to people with Parkinson's disease. If not otherwise contraindicated, Zofran should be given instead. HALDOL (HALOPERIDOL) 12/09/2024 15 - Contraindication-Med ical Mai* Comments: .divine PHENERGAN (PROMETHAZINE) 12/09/2024 15 - Contraindication-Med ical Mai* Comments: This should not be given to people with Parkinson's disease. If not otherwise contraindicated, Zofran should be given instead. REGLAN (METOCLOPRAMIDE) 12/09/2024 15 - Contraindication-Med ical Mai* Comments: This should not be given to people with Parkinson's disease. If not otherwise contraindicated and for nausea, Zofran should be given instead. ZYPREXA (OLANZAPINE) 06/09/2025 15 - Contraindication-Med ical Mai* Date Reviewed: 06/30/2025 Reviewed by: Jose Antonio Chase APRN.MANAGER OF SECURITY - Fully Assessed Reason for Visit: Peer To Peer Consultation [405] Prescriptions as of 08/25/2025 - oxymetazoline (AFRIN, OXYMETAZOLINE,) 0.05 % nasal [...] once daily. Problem List As Of Date 08/25/2025 Noted Resolved BENIGN HYPERTENSION [I10] 12/22/2006 11/05/2007 [...] Bladder stones [N21.0] 12/05/2023 Encounter Status:Closed by DANIELLA SAMUELS on 08/25/25 [facility] MR/CON.Margarito 08-25-2025 MR/CON.PCM.LIONEL [facility] Medical Records Department [address] [place] [address] Consultation - Palliative Care 08/25/25 1015 MR#: [id number] Acct: [id number] Name: TRACI DELA CRUZ Jr. Rep #: [id number] : 1950 75 From: Anita Sewell PCP: Dr. Celso Hunt MD Status:ADM IN Location: [address] Medical History Hyperuricemia Acute cholecystitis Loss of hearing Wears glasses Cancer Gout Thyroid disease Bladder disease High cholesterol Shortness of breath on exertion Former smoker History of echocardiogram Cardiology follow-up encounter History of atrial fibrillation HTN (hypertension) Hypothyroid Parkinson disease Home Medications ???Medication ???Instructions ???Recorded ???Last Taken ???Type amlodipine 10 mg tablet 10 tab PO DAILY blood pressure 03/0608/13/25 History carbidopa 25 mg-levodopa 100 mg 1 tab PO TID parkinsons 04/19/22 1 History tablet allopurinol 100 mg tablet 100 mg PO DAILYCM Gout 60 days #60 10/21/23 Unknown Rx tabs lisinopril 5 mg tablet 5 mg PO DAILY blood pressure 60 Unknown Rx days #60 tabs polyethylene glycol 3350 17 17 g PO DAILY constipation #119 08/11/25 Rx gram/dose oral powder (Miralax) grams apixaban 5 mg tablet (Eliquis) 5 mg PO DAILY heart 08/14/2508/14 History levothyroxine 100 mcg tablet 100 mcg PO DAILY disorder of 08/1408/13/25 History thyroid gland metoprolol succinate 50 mg 50 mg PO DAILY heart 08/14/2507/18 History tablet,extended release 24 hr cefdinir 300 mg capsule 300 mg PO BID Antibiotic 08/18/25 Unknown History Allergy/AdvReac Type Severity Reaction Status Date / Time No Known Allergies Allergy Verified 07/15/25 12:43 Surgical History Status post laparoscopic cholecystectomy Social History Smoking Status: Former smoker ROS Constitutional Constitutional: Reports poor appetite and weakness Eyes Eyes: Reports as per HPI ENT HEENT: Reports as per HPI Cardiovascular Cardiovascular: Reports dizziness and other Details: Occasional dizziness Respiratory/Chest Respiratory/Chest: Reports as per HPI Gastrointestinal Gastrointestinal: Reports as per HPI Genitourinary Genitourinary: Reports dribbling Musculoskeletal Musculoskeletal: Reports joint pain Integumentary Integumentary: Reports as per HPI Neurologic Neurologic: Reports abnormal movements Psychiatric Psychiatric: Reports as per HPI Endocrine Endocrinology: Reports as per HPI Hematologic/Lymphati c Hematologic/Lymphati c: Reports as per HPI Allergic/Immunologic Allergic/Immunologic : Reports as per HPI Physical Exam Const alert and oriented x3 Constitutional Narrative: Patient is intermittently confused General Appearance: cooperative Orientation / Consciousness: confused HEENT normocephalic Eyes Eyes Narrative: Wears corrective lenses Neck General: trachea midline Lymph Lymphatic: no lymphadenopathy noted Resp normal respiratory effort and normal air movement Cardio regular rate Rhythm: abnormal rhythm GI normal to inspection, nondistended, normoactive bowel sounds, soft to palpation, non-tender and non- distended Extremity normal capillary refill Skin no rashes or lesions noted Neuro Neuro Narrative: Bilateral upper extremity tremors Motor Exam: general weakness Psych Mood Affect: flat affect Charges/Coding Palliative Care Palliative Care: 07295 New Pt Consult 80+ min HPI Current admission Current Code Status: full code Associated Diagnosis: Parkinson's and gouty arthritis Consult Data Date of Consult: 08/25/25 [facility] of consult: [facility] Reason for referral: goals of care Referral source: Dr. Pichardo Palliative care diagnosis (Summary list): FTT, gouty arthritis, Parkinson's, medication no compliance Palliative care services/treatment (Accepted, as consult): accepted Case discussed with referring provider: outpatient palliative and possible [facility] referral HPI Narrative HPI Narrative: PAIN ASSESSMENT- denies Prior to meeting with the patient at bedside I reviewed labs and documentation since I last saw the patient as a medical patient for inpatient rehab. I introduced myself as part of the palliative care team in which he voluntarily excepted our services. Concern is for the patient scoring a 15 out of 30 on the [place] cognition test indicating moderate cognitive dysfunction. It is believed that the patient forgets to take his medications and he only takes his allopurinol "when he is having a flareup." He does have a uric acid of 7.2 and (more content not included)... Normal [facility] HH, Hemoglobin AND Hematocri ton 08-22-2025 Hematocrit (Bld) [Volume fraction] 42.0 % Normal 40-54 [facility] Comment on above: Performed By: #### L 100.0600 #### [facility] [address] [place], [address] Hemoglobin (Bld) [Mass/Vol] 13.9 g/dL Normal 13.0-16.5 [facility] Comment on above: Performed By: #### L 100.0600 #### [facility] [address] [place], [address] Uric Acidon 08-22-2025 URIC 7.2 mg/dL Normal 3.5-7.2 [facility] Comment on above: Result Comment: The drugs N-Acetylcysteine and Metamizole may falsely depress this assay. Performed By: #### L 501.1400 #### [facility] [address] [place], [address] Urinalysis, Completeon 08-21 EPI,SQUAMOUS 0-5 SEEN Normal 0-5 [facility] Comment on above: Order Comment: CLEAN CATCH Performed By: #### L 100.0600 #### [facility] [address] [place], [address] RBC 0-5 SEEN Normal 0-5 [facility] Comment on above: Order Comment: CLEAN CATCH Performed By: #### L 100.0600 #### [facility] [address] [place], [address] WBC 0-5 SEEN Normal 0-5 [facility] Comment on above: Order Comment: CLEAN CATCH Performed By: #### L 100.0600 #### [facility] [address] [place], [address] BACTERIA 0 SEEN Normal None Seen [facility] Comment on above: Order Comment: CLEAN CATCH Performed By: #### L 100.0600 #### [facility] [address] [place], [address] Mucus Ql (Urine sed) 0 SEEN Normal [facility] Comment on above: Order Comment: CLEAN CATCH Performed By: #### L 100.0600 #### [facility] [address] [place], [address] CBC W/Diff, Automatedon 11-0 4-2024 Absolute Lymph 1.02 X10 3/uL Normal 0.83-4.51 [facility] Comment on above: Performed By: #### L 500.4050, L100.0100 #### [facility] [address] [place], [address] Absolute Neut 7.8 X10 3/uL High 2.0-7.7 [facility] Comment on above: Performed By: #### L 500.4050, L100.0100 #### [facility] [address] [place], [address] Basophils/100 WBC (Bld) 0.5 % Normal 0-1 [facility] Comment on above: Performed By: #### L 500.4050, L100.0100 #### [facility] [address] [place], [address] Eosinophils/100 WBC (Bld) 0.8 % Normal 0-5 [facility] Comment on above: Performed By: #### L 500.4050, L100.0100 #### [facility] [address] [place], [address] Erythrocyte distribution width (RBC) [Ratio] 13.2 % Normal 11.6-14.6 [facility] Comment on above: Performed By: #### L 500.4050, L100.0100 #### [facility] [address] [place], [address] Hematocrit (Bld) [Volume fraction] 38.4 % Low 40-54 [facility] Comment on above: Performed By: #### L 500.4050, L100.0100 #### [facility] [address] [place], [address] Hemoglobin (Bld) [Mass/Vol] 12.9 g/dL Low 13.0-16.5 [facility] Comment on above: Performed By: #### L 500.4050, L100.0100 #### [facility] [address] [place], [address] IG% 0.300 Normal 0.0-0.9 [facility] Comment on above: Result Comment: IG% - Immature Granulocytes (promyelocytes, myelocytes and metamyelocytes) > 1% indicates that a LEFT SHIFT is Present. Performed By: #### L 500.4050, L100.0100 #### [facility] [address] [place], [address] Lymphocytes/100 WBC (Bld) 10.2 % Low 19-41 [facility] Comment on above: Performed By: #### L 500.4050, L100.0100 #### [facility] [address] [place], [address] MCH (RBC) [Entitic mass] 27.2 pg Normal 27.0-32.0 [facility] Comment on above: Performed By: #### L 500.4050, L100.0100 #### [facility] [address] [place], [address] MCHC (RBC) [Mass/Vol] 33.6 g/dL Normal 32-36 [facility] Comment on above: Performed By: #### L 500.4050, L100.0100 #### [facility] [address] [place], [address] MCV (RBC) [Entitic vol] 80.8 fL Normal 80-94 [facility] Comment on above: Performed By: #### L 500.4050, L100.0100 #### [facility] [address] [place], [address] Monocytes/100 WBC (Bld) 10.9 % High 0-10 [facility] Comment on above: Performed By: #### L 500.4050, L100.0100 #### [facility] [address] [place], [address] Neutrophils/100 WBC (Bld) 77.3 % High 47-70 [facility] Comment on above: Performed By: #### L 500.4050, L100.0100 #### [facility] [address] [place], [address] Nucleated RBC (Bld) [#/Vol] 0 10*3/uL Normal 0-5 [facility] Comment on above: Performed By: #### L 500.4050, L100.0100 #### [facility] [address] [place], [address] Platelet mean volume (Bld) [Entitic vol] 9.8 fL Normal 6.2-12.0 [facility] Comment on above: Performed By: #### L 500.4050, L100.0100 #### [facility] [address] [place], [address] Platelets (Bld) [#/Vol] 304 10*3/uL Normal 150-450 [facility] Comment on above: Performed By: #### L 500.4050, L100.0100 #### [facility] [address] [place], [address] RBC (Bld) [#/Vol] 4.75 10*6/uL Normal 4.6-6.2 [facility] Comment on above: Performed By: #### L 500.4050, L100.0100 #### [facility] [address] [place], [address] RDW SD 38.9 fl Normal 35.1-43.9 [facility] Comment on above: Performed By: #### L 500.4050, L100.0100 #### [facility] [address] [place], [address] WBC (Bld) [#/Vol] 10.0 10*3/uL Normal 4.4-11.0 [facility] Comment on above: Performed By: #### L 500.4050, L100.0100 #### [facility] [address] [place], [address] Comprehensive Metabolic Prof ilon 08-19-2025 Albumin [Mass/Vol] 3.1 g/dL Low 3.4-4.8 [facility] Comment on above: Performed By: #### L 500.4050, L100.0100 #### [facility] [address] [place], [address] Albumin/Globulin [Mass ratio] 1.0 {ratio} Normal 0.9-2.4 [facility] Comment on above: Performed By: #### L 500.4050, L100.0100 #### [facility] [address] [place], [address] ALK PHOS 94 U/L Normal 40-129 [facility] Comment on above: Performed By: #### L 500.4050, L100.0100 #### [facility] [address] [place], [address] ALT [Catalytic activity/Vol] 9 U/L Normal <=46 [facility] Comment on above: Performed By: #### L 500.4050, L100.0100 #### [facility] [address] [place], [address] AST [Catalytic activity/Vol] 47 U/L High <=37 [facility] Comment on above: Performed By: #### L 500.4050, L100.0100 #### [facility] [address] [place], [address] Bilirubin [Mass/Vol] 0.85 mg/dL Normal 0.00-1.30 [facility] Comment on above: Performed By: #### L 500.4050, L100.0100 #### [facility] [address] [place], [address] BUN/CRE 30.7 RATIO High 10-20 [facility] Comment on above: Performed By: #### L 500.4050, L100.0100 #### [facility] [address] [place], [address] Calcium [Mass/Vol] 9.0 mg/dL Normal 7.6-11.0 [facility] Comment on above: Performed By: #### L 500.4050, L100.0100 #### [facility] [address] [place], [address] Chloride [Moles/Vol] 101 mmol/L Normal 98-108 [facility] Comment on above: Performed By: #### L 500.4050, L100.0100 #### [facility] [address] [place], [address] CO2 [Moles/Vol] 24.9 mmol/L Normal 21.0-32.0 [facility] Comment on above: Performed By: #### L 500.4050, L100.0100 #### [facility] [address] [place], [address] Creatinine [Mass/Vol] 0.81 mg/dL Normal 0.70-1.20 [facility] Comment on above: Performed By: #### L 500.4050, L100.0100 #### [facility] [address] [place], [address] ECRCL 78.86 ml/min Normal 50-250 [facility] Comment on above: Performed By: #### L 500.4050, L100.0100 #### [facility] [address] [place], [address] GAP 10 Normal 5-15 [facility] Comment on above: Performed By: #### L 500.4050, L100.0100 #### [facility] [address] [place], [address] GFR/1.73 sq M.predicted among non-blacks MDRD (S/P/Bld) [Vol rate/Area] 91 mL/min/{1.73_m2} Normal >60 [facility] Comment on above: Result Comment: mL/m in/1.73m2 CKD-EPI Creatinine Equation (2020) Performed By: #### L 500.4050, L100.0100 #### [facility] [address] [place], [address] Globulin (S) [Mass/Vol] 3.2 g/dL Normal 2.2-4.2 [facility] Comment on above: Performed By: #### L 500.4050, L100.0100 #### [facility] [address] [place], [address] Glucose [Mass/Vol] 107 mg/dL High 70-99 [facility] Comment on above: Performed By: #### L 500.4050, L100.0100 #### [facility] [address] [place], [address] Potassium [Moles/Vol] 3.9 mmol/L Normal 3.3-5.1 [facility] Comment on above: Performed By: #### L 500.4050, L100.0100 #### [facility] [address] [place], [address] Sodium [Moles/Vol] 136 mmol/L Normal 133-145 [facility] Comment on above: Performed By: #### L 500.4050, L100.0100 #### [facility] [address] [place], [address] T PROT 6.3 g/dL Normal 5.9-8.4 [facility] Comment on above: Performed By: #### L 500.4050, L100.0100 #### [facility] [address] [place], [address] Urea nitrogen [Mass/Vol] 25 mg/dL High 4-19 [facility] Comment on above: Performed By: #### L 500.4050, L100.0100 #### [facility] [address] [place], [address] Magnesiumon 08-19-2025 Magnesium [Mass/Vol] 2.3 mg/dL High 1.5-2.2 [facility] Comment on above: Performed By: #### L 500.4050, L100.0100 #### [facility] [address] [place], [address] Phosphoruson 08-19-2025 Phosphate [Mass/Vol] 3.3 mg/dL Normal 2.7-4.5 [facility] Comment on above: Performed By: #### L 500.4050, L100.0100 #### [facility] [address] [place], [address] Basic Metabolic Profile (BMP )on 08-18-2025 BUN/CRE 24.9 RATIO High 10-20 [facility] Comment on above: Performed By: #### L 500.4050, L100.0100 #### [facility] [address] [place], [address] Calcium [Mass/Vol] 8.8 mg/dL Normal 7.6-11.0 [facility] Comment on above: Performed By: #### L 500.4050, L100.0100 #### [facility] [address] [place], [address] Chloride [Moles/Vol] 99 mmol/L Normal 98-108 [facility] Comment on above: Performed By: #### L 500.4050, L100.0100 #### [facility] [address] [place], [address] CO2 [Moles/Vol] 24.8 mmol/L Normal 21.0-32.0 [facility] Comment on above: Performed By: #### L 500.4050, L100.0100 #### [facility] [address] [place], [address] Creatinine [Mass/Vol] 0.84 mg/dL Normal 0.70-1.20 [facility] Comment on above: Performed By: #### L 500.4050, L100.0100 #### [facility] [address] [place], [address] ECRCL 82.48 ml/min Normal 50-250 [facility] Comment on above: Performed By: #### L 500.4050, L100.0100 #### [facility] [address] [place], [address] GAP 11 Normal 5-15 [facility] Comment on above: Performed By: #### L 500.4050, L100.0100 #### [facility] [address] [place], [address] GFR/1.73 sq M.predicted among non-blacks MDRD (S/P/Bld) [Vol rate/Area] 90 mL/min/{1.73_m2} Normal >60 [facility] Comment on above: Result Comment: mL/m in/1.73m2 CKD-EPI Creatinine Equation (2020) Performed By: #### L 500.4050, L100.0100 #### [facility] [address] [place], [address] Glucose [Mass/Vol] 102 mg/dL High 70-99 [facility] Comment on above: Performed By: #### L 500.4050, L100.0100 #### [facility] [address] [place], [address] Potassium [Moles/Vol] 3.8 mmol/L Normal 3.3-5.1 [facility] Comment on above: Performed By: #### L 500.4050, L100.0100 #### [facility] [address] [place], [address] Sodium [Moles/Vol] 134 mmol/L Normal 133-145 [facility] Comment on above: Performed By: #### L 500.4050, L100.0100 #### [facility] [address] [place], [address] Urea nitrogen [Mass/Vol] 21 mg/dL High 4-19 [facility] Comment on above: Performed By: #### L 500.4050, L100.0100 #### [facility] [address] [place], [address] CBC W/Diff, Automatedon 11-0 3-202 Absolute Lymph 0.96 X10 3/uL Normal 0.83-4.51 [facility] Comment on above: Performed By: #### L 500.4050, L100.0100 #### [facility] [address] [place], [address] Absolute Neut 8.6 X10 3/uL High 2.0-7.7 [facility] Comment on above: Performed By: #### L 500.4050, L100.0100 #### [facility] [address] [place], [address] Basophils/100 WBC (Bld) 0.5 % Normal 0-1 [facility] Comment on above: Performed By: #### L 500.4050, L100.0100 #### [facility] [address] [place], [address] Eosinophils/100 WBC (Bld) 0.3 % Normal 0-5 [facility] Comment on above: Performed By: #### L 500.4050, L100.0100 #### [facility] [address] [place], [address] Erythrocyte distribution width (RBC) [Ratio] 13.2 % Normal 11.6-14.6 [facility] Comment on above: Performed By: #### L 500.4050, L100.0100 #### [facility] [address] [place], [address] Hematocrit (Bld) [Volume fraction] 41.1 % Normal 40-54 [facility] Comment on above: Performed By: #### L 500.4050, L100.0100 #### [facility] [address] [place], [address] Hemoglobin (Bld) [Mass/Vol] 13.7 g/dL Normal 13.0-16.5 [facility] Comment on above: Performed By: #### L 500.4050, L100.0100 #### [facility] [address] [place], [address] IG% 0.500 Normal 0.0-0.9 [facility] Comment on above: Result Comment: IG% - Immature Granulocytes (promyelocytes, myelocytes and metamyelocytes) > 1% indicates that a LEFT SHIFT is Present. Performed By: #### L 500.4050, L100.0100 #### [facility] [address] [place], [address] Lymphocytes/100 WBC (Bld) 8.9 % Low 19-41 [facility] Comment on above: Performed By: #### L 500.4050, L100.0100 #### [facility] [address] [place], [address] MCH (RBC) [Entitic mass] 27.0 pg Normal 27.0-32.0 [facility] Comment on above: Performed By: #### L 500.4050, L100.0100 #### [facility] [address] [place], [address] MCHC (RBC) [Mass/Vol] 33.3 g/dL Normal 32-36 [facility] Comment on above: Performed By: #### L 500.4050, L100.0100 #### [facility] [address] [place], [address] MCV (RBC) [Entitic vol] 81.1 fL Normal 80-94 [facility] Comment on above: Performed By: #### L 500.4050, L100.0100 #### [facility] [address] [place], [address] Monocytes/100 WBC (Bld) 10.1 % High 0-10 [facility] Comment on above: Performed By: #### L 500.4050, L100.0100 #### [facility] [address] [place], [address] Neutrophils/100 WBC (Bld) 79.7 % High 47-70 [facility] Comment on above: Performed By: #### L 500.4050, L100.0100 #### [facility] [address] [place], [address] Nucleated RBC (Bld) [#/Vol] 0 10*3/uL Normal 0-5 [facility] Comment on above: Performed By: #### L 500.4050, L100.0100 #### [facility] [address] [place], [address] Platelet mean volume (Bld) [Entitic vol] 9.8 fL Normal 6.2-12.0 [facility] Comment on above: Performed By: #### L 500.4050, L100.0100 #### [facility] [address] [place], [address] Platelets (Bld) [#/Vol] 293 10*3/uL Normal 150-450 [facility] Comment on above: Performed By: #### L 500.4050, L100.0100 #### [facility] [address] [place], [address] RBC (Bld) [#/Vol] 5.07 10*6/uL Normal 4.6-6.2 [facility] Comment on above: Performed By: #### L 500.4050, L100.0100 #### [facility] [address] [place], [address] RDW SD 38.7 fl Normal 35.1-43.9 [facility] Comment on above: Performed By: #### L 500.4050, L100.0100 #### [facility] [address] [place], [address] WBC (Bld) [#/Vol] 10.7 10*3/uL Normal 4.4-11.0 [facility] Comment on above: Performed By: #### L 500.4050, L100.0100 #### [facility] [address] [place], [address] Discharge Instructionon Discharge Instruction [facility] Medical Records Department [address] [place] [address] Instructions for Home/Discharge Instructions 08/18/25 1441 MR#: [id number] Acct: [id number] Name: TRACI DELA CRUZ Jr. Rep #: [id number] : 1950 75 From: Sheila Ayala MD PCP: Dr. Celso Hunt MD Status:ADM IN Discharge Instructions DC O2, CPAP, BIPAP needs Home O2 Discharge instructions: No Dressing / Incision Discharge Activity: - (Increase activity as tolerated) Follow Up Care Test Results: Test results from this visit will be discussed in further detail at your follow-up appointment, if applicable. Discharge Plan Admission Admit Date/Time: 08/16/25 14:45 Primary Reason for Your Visit: Generalized weakness, UTI Attending Provider: Sheila Ayala Primary Care Provider: Celso Hunt Consulting Providers: Carlos Avalos; Angelica Avila Instructions Patient Instructions: ED Fall Prevention Additional Instructions / Restrictions: DISCHARGE INSTRUCTIONS PLEASE READ *Please take this with you to your next doctors appointment* - You will be discharged on cefdinir 300 mg twice daily for 5 more days starting 08/19/25 - Your urine culture results have not finalized and will need to be followed up however given your significant improvement on Rocephin feel it is reasonable to treat empirically with this agent, alternate agent can be prescribed if needed pending urine culture - Given some intermittent lower extremity swelling he may benefit from compression stockings or Rosy wrap -Please call your primary care provider's office upon discharge to schedule a hospital follow up within 1 week. -For any concerning signs or symptoms please call 911 or proceed to the nearest emergency department Discharge Orders/Prescriptions Prescriptions: Continued amlodipine 10 mg tablet 10 tab PO DAILY Patient Comments: TAKE 1 TABLET BY MOUTH EVERY DAY carbidopa-levodopa 25-100 mg tablet 1 tab PO TID allopurinol 100 mg Tablet 100 mg PO DAILYCM 60 Days Qty: 60 0RF lisinopril 5 mg Tablet 5 mg PO DAILY 60 Days Qty: 60 0RF Patient Comments: pt states he has not been taking because he did not know what it was for but will start taking now polyethylene glycol 3350 [Miralax] 17 gram/dose powder 17 g PO DAILY Qty: 119 0RF metoprolol succinate 50 mg tablet extended release 24 hr 50 mg PO DAILY levothyroxine 100 mcg tablet 100 mcg PO DAILY Eliquis 5 mg Tablet 5 mg PO DAILY Referrals / Follow Up: Celso Hunt MD [Primary Care Provider, Medical] Disposition Disposition (needs filled in before D/C Order can be placed): Inpatient Rehab Unit/Facility 08/18/25 1443 Sheila Ayala MD CC: Dr. Carlos Avalos DO; Dr. Angelica Avila DO; Dr. Celso Hunt MD Signed ADDENDUM by Dr. Sheila Ayala MD on 08/18/25 at 1448 Cefdinir added to discharge med rec 08/18/25 1448 Sheila Ayala MD cc: Dr. Carlos Avalos DO; Dr. Angelica Avila DO; Dr. Celso Hunt MD * Signed Normal [facility] Basic Metabolic Profile (BMP )on 08-17-2025 BUN/CRE 26.7 RATIO High 10-20 [facility] Comment on above: Performed By: #### L 100.0600 #### [facility] [address] [place], [address] Calcium [Mass/Vol] 8.6 mg/dL Normal 7.6-11.0 [facility] Comment on above: Performed By: #### L 100.0600 #### [facility] [address] [place], [address] Chloride [Moles/Vol] 101 mmol/L Normal 98-108 [facility] Comment on above: Performed By: #### L 100.0600 #### [facility] [address] [place], [address] CO2 [Moles/Vol] 23.1 mmol/L Normal 21.0-32.0 [facility] Comment on above: Performed By: #### L 100.0600 #### [facility] [address] [place], [address] Creatinine [Mass/Vol] 0.82 mg/dL Normal 0.70-1.20 [facility] Comment on above: Performed By: #### L 100.0600 #### [facility] [address] [place], [address] ECRCL 84.49 ml/min Normal 50-250 [facility] Comment on above: Performed By: #### L 100.0600 #### [facility] [address] [place], [address] GAP 10 Normal 5-15 [facility] Comment on above: Performed By: #### L 100.0600 #### [facility] [address] [place], [address] GFR/1.73 sq M.predicted among non-blacks MDRD (S/P/Bld) [Vol rate/Area] 91 mL/min/{1.73_m2} Normal >60 [facility] Comment on above: Result Comment: mL/m in/1.73m2 CKD-EPI Creatinine Equation (2020) Performed By: #### L 100.0600 #### [facility] [address] [place], [address] Glucose [Mass/Vol] 119 mg/dL High 70-99 [facility] Comment on above: Performed By: #### L 100.0600 #### [facility] [address] [place], [address] Potassium [Moles/Vol] 3.8 mmol/L Normal 3.3-5.1 [facility] Comment on above: Performed By: #### L 100.0600 #### [facility] [address] [place], [address] Sodium [Moles/Vol] 134 mmol/L Normal 133-145 [facility] Comment on above: Performed By: #### L 100.0600 #### [facility] [address] [place], [address] Urea nitrogen [Mass/Vol] 22 mg/dL High 4-19 [facility] Comment on above: Performed By: #### L 100.0600 #### [facility] [address] [place], [address] CBC W/Diff, Automatedon 11-0 2-2024 Absolute Lymph 1.11 X10 3/uL Normal 0.83-4.51 [facility] Comment on above: Performed By: #### L 100.0600 #### [facility] [address] [place], [address] Absolute Neut 9.7 X10 3/uL High 2.0-7.7 [facility] Comment on above: Performed By: #### L 100.0600 #### [facility] [address] [place], [address] Basophils/100 WBC (Bld) 0.6 % Normal 0-1 [facility] Comment on above: Performed By: #### L 100.0600 #### [facility] [address] [place], [address] Eosinophils/100 WBC (Bld) 0.2 % Normal 0-5 [facility] Comment on above: Performed By: #### L 100.0600 #### [facility] [address] [place], [address] Erythrocyte distribution width (RBC) [Ratio] 13.2 % Normal 11.6-14.6 [facility] Comment on above: Performed By: #### L 100.0600 #### [facility] [address] [place], [address] Hematocrit (Bld) [Volume fraction] 39.3 % Low 40-54 [facility] Comment on above: Performed By: #### L 100.0600 #### [facility] [address] [place], [address] Hemoglobin (Bld) [Mass/Vol] 13.1 g/dL Normal 13.0-16.5 [facility] Comment on above: Performed By: #### L 100.0600 #### [facility] [address] [place], [address] IG% 0.700 Normal 0.0-0.9 [facility] Comment on above: Result Comment: IG% - Immature Granulocytes (promyelocytes, myelocytes and metamyelocytes) > 1% indicates that a LEFT SHIFT is Present. Performed By: #### L 100.0600 #### [facility] [address] [place], [address] Lymphocytes/100 WBC (Bld) 9.2 % Low 19-41 [facility] Comment on above: Performed By: #### L 100.0600 #### [facility] [address] [place], [address] MCH (RBC) [Entitic mass] 27.1 pg Normal 27.0-32.0 [facility] Comment on above: Performed By: #### L 100.0600 #### [facility] [address] [place], [address] MCHC (RBC) [Mass/Vol] 33.3 g/dL Normal 32-36 [facility] Comment on above: Performed By: #### L 100.0600 #### [facility] [address] [place], [address] MCV (RBC) [Entitic vol] 81.4 fL Normal 80-94 [facility] Comment on above: Performed By: #### L 100.0600 #### [facility] [address] [place], [address] Monocytes/100 WBC (Bld) 9.8 % Normal 0-10 [facility] Comment on above: Performed By: #### L 100.0600 #### [facility] [address] [place], [address] Neutrophils/100 WBC (Bld) 79.5 % High 47-70 [facility] Comment on above: Performed By: #### L 100.0600 #### [facility] [address] [place], [address] Nucleated RBC (Bld) [#/Vol] 0 10*3/uL Normal 0-5 [facility] Comment on above: Performed By: #### L 100.0600 #### [facility] [address] [place], [address] Platelet mean volume (Bld) [Entitic vol] 10.1 fL Normal 6.2-12.0 [facility] Comment on above: Performed By: #### L 100.0600 #### [facility] [address] [place], [address] Platelets (Bld) [#/Vol] 243 10*3/uL Normal 150-450 [facility] Comment on above: Performed By: #### L 100.0600 #### [facility] [address] [place], [address] RBC (Bld) [#/Vol] 4.83 10*6/uL Normal 4.6-6.2 [facility] Comment on above: Performed By: #### L 100.0600 #### [facility] [address] [place], [address] RDW SD 38.9 fl Normal 35.1-43.9 [facility] Comment on above: Performed By: #### L 100.0600 #### [facility] [address] [place], [address] WBC (Bld) [#/Vol] 12.1 10*3/uL High 4.4-11.0 [facility] Comment on above: Performed By: #### L 100.0600 #### [facility] [address] [place], [address] Urine Cultureon 08-17-2025 URC Culture exhibits no growth. Normal [facility] Comment on above: Performed By: #### L 100.0600 #### [facility] [address] [place], [address] CBC W/Diff, Automatedon Absolute Lymph 1.22 X10 3/uL Normal 0.83-4.51 [facility] Comment on above: Performed By: #### L 500.2500, L100.0500 #### [facility] [address] [place], [address] Absolute Neut 10.4 X10 3/uL High 2.0-7.7 [facility] Comment on above: Performed By: #### L 500.2500, L100.0500 #### [facility] [address] [place], [address] Basophils/100 WBC (Bld) 0.5 % Normal 0-1 [facility] Comment on above: Performed By: #### L 500.2500, L100.0500 #### [facility] [address] [place], [address] Eosinophils/100 WBC (Bld) 0.1 % Normal 0-5 [facility] Comment on above: Performed By: #### L 500.2500, L100.0500 #### [facility] [address] [place], [address] Erythrocyte distribution width (RBC) [Ratio] 13.2 % Normal 11.6-14.6 [facility] Comment on above: Performed By: #### L 500.2500, L100.0500 #### [facility] [address] [place], [address] Hematocrit (Bld) [Volume fraction] 41.5 % Normal 40-54 [facility] Comment on above: Performed By: #### L 500.2500, L100.0500 #### [facility] [address] [place], [address] Hemoglobin (Bld) [Mass/Vol] 13.8 g/dL Normal 13.0-16.5 [facility] Comment on above: Performed By: #### L 500.2500, L100.0500 #### [facility] [address] [place], [address] IG% 0.700 Normal 0.0-0.9 [facility] Comment on above: Result Comment: IG% - Immature Granulocytes (promyelocytes, myelocytes and metamyelocytes) > 1% indicates that a LEFT SHIFT is Present. Performed By: #### L 500.2500, L100.0500 #### [facility] [address] [place], [address] Lymphocytes/100 WBC (Bld) 9.2 % Low 19-41 [facility] Comment on above: Performed By: #### L 500.2500, L100.0500 #### [facility] [address] [place], [address] MCH (RBC) [Entitic mass] 27.1 pg Normal 27.0-32.0 [facility] Comment on above: Performed By: #### L 500.2500, L100.0500 #### [facility] [address] [place], [address] MCHC (RBC) [Mass/Vol] 33.3 g/dL Normal 32-36 [facility] Comment on above: Performed By: #### L 500.2500, L100.0500 #### [facility] [address] [place], [address] MCV (RBC) [Entitic vol] 81.4 fL Normal 80-94 [facility] Comment on above: Performed By: #### L 500.2500, L100.0500 #### [facility] [address] [place], [address] Monocytes/100 WBC (Bld) 11.4 % High 0-10 [facility] Comment on above: Performed By: #### L 500.2500, L100.0500 #### [facility] [address] [place], [address] Neutrophils/100 WBC (Bld) 78.1 % High 47-70 [facility] Comment on above: Performed By: #### L 500.2500, L100.0500 #### [facility] [address] [place], [address] Nucleated RBC (Bld) [#/Vol] 0 10*3/uL Normal 0-5 [facility] Comment on above: Performed By: #### L 500.2500, L100.0500 #### [facility] [address] [place], [address] Platelet mean volume (Bld) [Entitic vol] 10.0 fL Normal 6.2-12.0 [facility] Comment on above: Performed By: #### L 500.2500, L100.0500 #### [facility] [address] [place], [address] Platelets (Bld) [#/Vol] 261 10*3/uL Normal 150-450 [facility] Comment on above: Performed By: #### L 500.2500, L100.0500 #### [facility] [address] [place], [address] RBC (Bld) [#/Vol] 5.10 10*6/uL Normal 4.6-6.2 [facility] Comment on above: Performed By: #### L 500.2500, L100.0500 #### [facility] [address] [place], [address] RDW SD 39.1 fl Normal 35.1-43.9 [facility] Comment on above: Performed By: #### L 500.2500, L100.0500 #### [facility] [address] [place], [address] WBC (Bld) [#/Vol] 13.3 10*3/uL High 4.4-11.0 [facility] Comment on above: Performed By: #### L 500.2500, L100.0500 #### [facility] [address] [place], [address] Chest 1 View (Portable)on Chest 1 View (Portable) [facility] Imaging Services [address] [place] [address] Chest 1 View (Portable) MR#: [id number] Acct: [id number] Name: TRACI DELA CRUZ Jr. Rep #: [id number] : 1950 M 75 From: James William MD PCP: Dr. Celso Hunt MD Status: ADM KARIN Study: Chest 1 View (Portable) Date of Exam: 08/16/25 Exam# [id number] Ordering Dr: Sheila Ayala MD PROCEDURE: CHEST 1 VIEW (PORTABLE) 08/16/2025 REASON FOR EXAM: ELEVATED WBC, COUGH TECHNIQUE: Frontal view of the chest. COMPARISON: October 19, 2023 FINDINGS: Hardware: None Heart: Mildly enlarged Lungs: The lungs are clear. Bones: The bones are unremarkable. RAD/Chest 1 View (Portable) IMPRESSION: Mild cardiac enlargement Reading Location: [id number] CC: Dr. Sheila Ayala MD; Dr. Celso Hunt MD [employer] Remittance Clerk: Signed Normal [facility] Comprehensive Metabolic Prof ilon 08-16-2025 Albumin [Mass/Vol] 3.4 g/dL Normal 3.4-4.8 [facility] Comment on above: Performed By: #### L 500.2500, L100.0500 #### [facility] [address] [place], [address] Albumin/Globulin [Mass ratio] 1.0 {ratio} Normal 0.9-2.4 [facility] Comment on above: Performed By: #### L 500.2500, L100.0500 #### [facility] [address] [place], [address] ALK PHOS 94 U/L Normal 40-129 [facility] Comment on above: Performed By: #### L 500.2500, L100.0500 #### [facility] [address] [place], [address] ALT [Catalytic activity/Vol] 10 U/L Normal <=46 [facility] Comment on above: Performed By: #### L 500.2500, L100.0500 #### [facility] [address] [place], [address] AST [Catalytic activity/Vol] 24 U/L Normal <=37 [facility] Comment on above: Performed By: #### L 500.2500, L100.0500 #### [facility] [address] [place], [address] Bilirubin [Mass/Vol] 1.68 mg/dL High 0.00-1.30 [facility] Comment on above: Performed By: #### L 500.2500, L100.0500 #### [facility] [address] [place], [address] BUN/CRE 22.6 RATIO High 10-20 [facility] Comment on above: Performed By: #### L 500.2500, L100.0500 #### [facility] [address] [place], [address] Calcium [Mass/Vol] 9.0 mg/dL Normal 7.6-11.0 [facility] Comment on above: Performed By: #### L 500.2500, L100.0500 #### [facility] [address] [place], [address] Chloride [Moles/Vol] 100 mmol/L Normal 98-108 [facility] Comment on above: Performed By: #### L 500.2500, L100.0500 #### [facility] [address] [place], [address] CO2 [Moles/Vol] 24.7 mmol/L Normal 21.0-32.0 [facility] Comment on above: Performed By: #### L 500.2500, L100.0500 #### [facility] [address] [place], [address] Creatinine [Mass/Vol] 0.98 mg/dL Normal 0.70-1.20 [facility] Comment on above: Performed By: #### L 500.2500, L100.0500 #### [facility] [address] [place], [address] ECRCL 70.70 ml/min Normal 50-250 [facility] Comment on above: Performed By: #### L 500.2500, L100.0500 #### [facility] [address] [place], [address] GAP 10 Normal 5-15 [facility] Comment on above: Performed By: #### L 500.2500, L100.0500 #### [facility] [address] [place], [address] GFR/1.73 sq M.predicted among non-blacks MDRD (S/P/Bld) [Vol rate/Area] 79 mL/min/{1.73_m2} Normal >60 [facility] Comment on above: Result Comment: mL/m in/1.73m2 CKD-EPI Creatinine Equation (2020) Performed By: #### L 500.2500, L100.0500 #### [facility] [address] [place], [address] Globulin (S) [Mass/Vol] 3.3 g/dL Normal 2.2-4.2 [facility] Comment on above: Performed By: #### L 500.2500, L100.0500 #### [facility] [address] [place], [address] Glucose [Mass/Vol] 103 mg/dL High 70-99 [facility] Comment on above: Performed By: #### L 500.2500, L100.0500 #### [facility] [address] [place], [address] Potassium [Moles/Vol] 4.1 mmol/L Normal 3.3-5.1 [facility] Comment on above: Performed By: #### L 500.2500, L100.0500 #### [facility] [address] [place], [address] Sodium [Moles/Vol] 134 mmol/L Normal 133-145 [facility] Comment on above: Performed By: #### L 500.2500, L100.0500 #### [facility] [address] [place], [address] T PROT 6.7 g/dL Normal 5.9-8.4 [facility] Comment on above: Performed By: #### L 500.2500, L100.0500 #### [facility] [address] [place], [address] Urea nitrogen [Mass/Vol] 22 mg/dL High 4-19 [facility] Comment on above: Performed By: #### L 500.2500, L100.0500 #### [facility] [address] [place], [address] Hemoglobin A1con 08-16-2025 HbA1c (Bld) [Mass fraction] 5.7 % Normal <=5.6 [facility] Comment on above: Result Comment: Norm al < 5.7 % Prediabetic 5.7 - 6.4 % Diabetic >or= 6.5 % Please note range changes. Performed By: #### L 500.4050, L100.0100 #### [facility] [address] [place], [address] Magnesiumon 08-16-2025 Magnesium [Mass/Vol] 2.0 mg/dL Normal 1.5-2.2 [facility] Comment on above: Performed By: #### L 500.4050, L100.0100 #### [facility] [address] [place], [address] Phosphoruson 08-16-2025 Phosphate [Mass/Vol] 2.7 mg/dL Normal 2.7-4.5 [facility] Comment on above: Performed By: #### L 500.4050, L100.0100 #### [facility] [address] [place], [address] Urinalysis, Completeon 08-16 BACTERIA 1+ /hpf Normal None Seen [facility] Comment on above: Order Comment: NATA TER SPECIMEN Performed By: #### L 100.0600 #### [facility] [address] [place], [address] CAST,FINE GRAN 0-5 SEEN Normal 0-5 [facility] Comment on above: Order Comment: NATA TER SPECIMEN Performed By: #### L 100.0600 #### [facility] [address] [place], [address] CAST,HYALINE 0-5 SEEN Normal 0-5 [facility] Comment on above: Order Comment: NATA TER SPECIMEN Performed By: #### L 100.0600 #### [facility] [address] [place], [address] Mucus Ql (Urine sed) 1+ /hpf Normal [facility] Comment on above: Order Comment: NATA TER SPECIMEN Performed By: #### L 100.0600 #### [facility] [address] [place], [address] EPI,RENAL 0-5 SEEN Normal 0-5 [facility] Comment on above: Order Comment: NATA TER SPECIMEN Performed By: #### L 100.0600 #### [facility] [address] [place], [address] EPI,SQUAMOUS 0-5 SEEN Normal 0-5 [facility] Comment on above: Order Comment: NATA TER SPECIMEN Performed By: #### L 100.0600 #### [facility] [address] [place], [address] RBC 0-5 SEEN Normal 0-5 [facility] Comment on above: Order Comment: NATA TER SPECIMEN Performed By: #### L 100.0600 #### [facility] [address] [place], [address] WBC 5-10 SEEN Normal 0-5 [facility] Comment on above: Order Comment: NATA TER SPECIMEN Performed By: #### L 100.0600 #### [facility] [address] [place], [address] Vitamin B12on 08-16-2025 Cobalamin (Vitamin B12) [Mass/Vol] 436 pg/mL Normal 180-914 [facility] Comment on above: Performed By: #### L 500.4050, L100.0100 #### [facility] [address] [place], [address] Vitamin D,25 Hydroxyon 08-16 Vitamin D 25-OH 15.3 ng/mL Low 30-100 [facility] Comment on above: Result Comment: An min D Status Deficiency: <20 ng/mL (50nmol/L) Insufficiency: 20-30 ng/mL (50-75 nmol/L) Sufficiency: 30-100 ng/mL (75-250 nmol/L) Toxicity: >100 ng/mL (>250 nmol/L) Performed By: #### L 500.2500, L100.0500 #### [facility] [address] [place], [address] Basic Metabolic Profile (BMP )on 08-15-2025 BUN/CRE 18.4 RATIO Normal 10-20 [facility] Comment on above: Performed By: #### L 500.2500, L100.0500 #### [facility] [address] [place], [address] Calcium [Mass/Vol] 8.8 mg/dL Normal 7.6-11.0 [facility] Comment on above: Performed By: #### L 500.2500, L100.0500 #### [facility] [address] [place], [address] Chloride [Moles/Vol] 99 mmol/L Normal 98-108 [facility] Comment on above: Performed By: #### L 500.2500, L100.0500 #### [facility] [address] [place], [address] CO2 [Moles/Vol] 26.3 mmol/L Normal 21.0-32.0 [facility] Comment on above: Performed By: #### L 500.2500, L100.0500 #### [facility] [address] [place], [address] Creatinine [Mass/Vol] 0.95 mg/dL Normal 0.70-1.20 [facility] Comment on above: Performed By: #### L 500.2500, L100.0500 #### [facility] [address] [place], [address] ECRCL 72.93 ml/min Normal 50-250 [facility] Comment on above: Performed By: #### L 500.2500, L100.0500 #### [facility] [address] [place], [address] GAP 10 Normal 5-15 [facility] Comment on above: Performed By: #### L 500.2500, L100.0500 #### [facility] [address] [place], [address] GFR/1.73 sq M.predicted among non-blacks MDRD (S/P/Bld) [Vol rate/Area] 83 mL/min/{1.73_m2} Normal >60 [facility] Comment on above: Result Comment: mL/m in/1.73m2 CKD-EPI Creatinine Equation (2020) Performed By: #### L 500.2500, L100.0500 #### [facility] [address] [place], [address] Glucose [Mass/Vol] 108 mg/dL High 70-99 [facility] Comment on above: Performed By: #### L 500.2500, L100.0500 #### [facility] [address] [place], [address] Potassium [Moles/Vol] 3.7 mmol/L Normal 3.3-5.1 [facility] Comment on above: Performed By: #### L 500.2500, L100.0500 #### [facility] [address] [place], [address] Sodium [Moles/Vol] 135 mmol/L Normal 133-145 [facility] Comment on above: Performed By: #### L 500.2500, L100.0500 #### [facility] [address] [place], [address] Urea nitrogen [Mass/Vol] 17 mg/dL Normal 4-19 [facility] Comment on above: Performed By: #### L 500.2500, L100.0500 #### [facility] [address] [place], [address] CBC-Complete Blood Cnt No Di ffon 08-15-2025 Erythrocyte distribution width (RBC) [Ratio] 13.2 % Normal 11.6-14.6 [facility] Comment on above: Performed By: #### L 500.2500, L100.0500 #### [facility] [address] [place], [address] Hematocrit (Bld) [Volume fraction] 43.2 % Normal 40-54 [facility] Comment on above: Performed By: #### L 500.2500, L100.0500 #### [facility] [address] [place], [address] Hemoglobin (Bld) [Mass/Vol] 14.8 g/dL Normal 13.0-16.5 [facility] Comment on above: Performed By: #### L 500.2500, L100.0500 #### [facility] [address] [place], [address] MCH (RBC) [Entitic mass] 28.3 pg Normal 27.0-32.0 [facility] Comment on above: Performed By: #### L 500.2500, L100.0500 #### [facility] [address] [place], [address] MCHC (RBC) [Mass/Vol] 34.3 g/dL Normal 32-36 [facility] Comment on above: Performed By: #### L 500.2500, L100.0500 #### [facility] [address] [place], [address] MCV (RBC) [Entitic vol] 82.6 fL Normal 80-94 [facility] Comment on above: Performed By: #### L 500.2500, L100.0500 #### [facility] [address] [place], [address] Platelet mean volume (Bld) [Entitic vol] 10.0 fL Normal 6.2-12.0 [facility] Comment on above: Performed By: #### L 500.2500, L100.0500 #### [facility] [address] [place], [address] Platelets (Bld) [#/Vol] 239 10*3/uL Normal 150-450 [facility] Comment on above: Performed By: #### L 500.2500, L100.0500 #### [facility] [address] [place], [address] RBC (Bld) [#/Vol] 5.23 10*6/uL Normal 4.6-6.2 [facility] Comment on above: Performed By: #### L 500.2500, L100.0500 #### [facility] [address] [facility] [place], [address] RDW SD 39.5 fl Normal 35.1-43.9 [facility] Comment on above: Performed By: #### L 500.2500, L100.0500 #### [facility] [address] [facility] [place], [address] WBC (Bld) [#/Vol] 13.1 10*3/uL High 4.4-11.0 [facility] Comment on above: Performed By: #### L 500.2500, L100.0500 #### [facility] [address] [facility] [place], [address] RESPIRATORY PANEL MOLECULARo n 08-15-2025 RP PANEL Normal Reference Range = Not Detected Resp path DNA+RNA Pnl Resp GILBERT+probe Nucleic acid amplification test method ADENOVIRUS Not Detected INFLUENZA A Not Detected INFLUENZA A (SUBTYPE H1) Not Detected INFLUENZA A (SUBTYPE H3) Not Detected INFLUENZA B Not Detected HUMAN METAPHNEUMO Not Detected PARAINFLUENZA 1 Not Detected PARAINFLUENZA 2 Not Detected PARAINFLUENZA 3 Not Detected PARAINFLUENZA 4 Not Detected RHINOVIRUS Not Detected RSV A Not Detected RSV B Not Detected Normal [facility] Comment on above: Performed By: #### L 500.2500, L100.0500 #### [facility] [address] [place], [address] Brain/Head without Contrasto n 08-14-2025 Brain/Head without Contrast [facility] Imaging Services [address] [place] [address] Brain/Head without Contrast MR#: [id number] Acct: [id number] Name: TRACI DELA CRUZ JrSyl Rep #: [id number] : 1950 M 75 From: Frida Hawkins MD PCP: Dr. Celso Hunt MD Status: REG ER Study: Brain/Head without Contrast Date of Exam: 07/18 Exam# [id number] Ordering Dr: Reji Johnson DO PROCEDURE: BRAIN/HEAD WITHOUT CONTRAST 08/14/2025 REASON FOR EXAM: DIFFICULTY WALKING, HX OF PARKINSONS TECHNIQUE: Procedure Code: CTBR Modality: CT Procedure: BRAIN/HEAD WITHOUT CONTRAST Coronal and Sagittal reconstruction series were provided. One or more dose reduction techniques were used (e.g., Automated exposure control, adjustment of the mA and/or kV according to patient size, use of iterative reconstruction technique. RADIATION DOSE SUMMARY: CTDlvol: 44.99 mGy DLP: 829.85 mGycm COMPARISON: CT head October 19, 2023. FINDINGS: Brain: No acute territorial infarction. No acute intracranial hemorrhage. No mass-effect or midline shift. Diffuse white matter hypodensities which are nonspecific but likely due to chronic small-vessel ischemia. Parenchymal volume loss consistent with brain atrophy. No ventriculomegaly. The orbits are unremarkable. The craniocervical junction is unremarkable. CSF Spaces: Advanced generalized cerebral atrophy Sinuses/Mastoids: Clear at visualized levels Bones: No acute bony abnormalities. CT/Brain/Head without Contrast IMPRESSION: No acute intracranial abnormalities. Reading Location: [facility] CC: Dr. Reji Johnson DO; Dr. Celso Hunt MD [employer] Remittance Clerk: Signed Normal [facility] CBC W/Diff, Automatedon 07-18 SMEAR COMMENT COMMENT Normal [facility] Comment on above: Result Comment: MONO CYTOSIS. Performed By: #### L 500.4050, L100.0100 #### [facility] [address] [place], [address] Comprehensive Metabolic Prof ilon 08-14-2025 Albumin [Mass/Vol] 3.8 g/dL Normal 3.4-4.8 [facility] Comment on above: Performed By: #### L 500.4050, L100.0100 #### [facility] [address] [place], [address] Albumin/Globulin [Mass ratio] 1.2 {ratio} Normal 0.9-2.4 [facility] Comment on above: Performed By: #### L 500.4050, L100.0100 #### [facility] [address] [place], [address] ALK PHOS 80 U/L Normal 40-129 [facility] Comment on above: Performed By: #### L 500.4050, L100.0100 #### [facility] [address] [place], [address] ALT [Catalytic activity/Vol] U/L Normal <=46 [facility] Comment on above: Performed By: #### L 500.4050, L100.0100 #### [facility] [address] [place], [address] AST [Catalytic activity/Vol] 21 U/L Normal <=37 [facility] Comment on above: Performed By: #### L 500.4050, L100.0100 #### [facility] [address] [place], [address] Bilirubin [Mass/Vol] 1.36 mg/dL High 0.00-1.30 [facility] Comment on above: Performed By: #### L 500.4050, L100.0100 #### [facility] [address] [place], [address] BUN/CRE 21.6 RATIO High 10-20 [facility] Comment on above: Performed By: #### L 500.4050, L100.0100 #### [facility] [address] [place], [address] Calcium [Mass/Vol] 8.7 mg/dL Normal 7.6-11.0 [facility] Comment on above: Performed By: #### L 500.4050, L100.0100 #### [facility] [address] [place], [address] Chloride [Moles/Vol] 101 mmol/L Normal 98-108 [facility] Comment on above: Performed By: #### L 500.4050, L100.0100 #### [facility] [address] [place], [address] CO2 [Moles/Vol] 26.1 mmol/L Normal 21.0-32.0 [facility] Comment on above: Performed By: #### L 500.4050, L100.0100 #### [facility] [address] [place], [address] Creatinine [Mass/Vol] 1.12 mg/dL Normal 0.70-1.20 [facility] Comment on above: Performed By: #### L 500.4050, L100.0100 #### [facility] [address] [place], [address] ECRCL 62.59 ml/min Normal 50-250 [facility] Comment on above: Performed By: #### L 500.4050, L100.0100 #### [facility] [address] [place], [address] GAP 10 Normal 5-15 [facility] Comment on above: Performed By: #### L 500.4050, L100.0100 #### [facility] [address] [place], [address] GFR/1.73 sq M.predicted among non-blacks MDRD (S/P/Bld) [Vol rate/Area] 68 mL/min/{1.73_m2} Normal >60 [facility] Comment on above: Result Comment: mL/m in/1.73m2 CKD-EPI Creatinine Equation (2020) Performed By: #### L 500.4050, L100.0100 #### [facility] [address] [place], [address] Globulin (S) [Mass/Vol] 3.0 g/dL Normal 2.2-4.2 [facility] Comment on above: Performed By: #### L 500.4050, L100.0100 #### [facility] [address] [place], [address] Glucose [Mass/Vol] 101 mg/dL High 70-99 [facility] Comment on above: Performed By: #### L 500.4050, L100.0100 #### [facility] [address] [place], [address] Potassium [Moles/Vol] 3.8 mmol/L Normal 3.3-5.1 [facility] Comment on above: Performed By: #### L 500.4050, L100.0100 #### [facility] [address] [place], [address] Sodium [Moles/Vol] 137 mmol/L Normal 133-145 [facility] Comment on above: Performed By: #### L 500.4050, L100.0100 #### [facility] [address] [place], [address] T PROT 6.8 g/dL Normal 5.9-8.4 [facility] Comment on above: Performed By: #### L 500.4050, L100.0100 #### [facility] [address] [place], [address] Urea nitrogen [Mass/Vol] 24 mg/dL High 4-19 [facility] Comment on above: Performed By: #### L 500.4050, L100.0100 #### [facility] [address] [place], [address] Emergency Department Summary on 08-14-2025 Emergency Department Summary [facility] Medical Records Department [address] [place] [address] Emergency Department Summary 08/14/25 MR#: [id number] Acct: [id number] Name: TRACI DELA CRUZ Jr. Rep #: [id number] : 1950 75 From: Reji Johnson DO PCP: Dr. Celso Hunt MD Status:REG ER Location: ED HPI History of Present Illness Chief Complaint: Weakness Narrative Narrative: Patient is a 75-year-old male with past medical history of Parkinson disease, hypothyroidism, bladder cancer, history atrial fibrillation on Eliquis states that he has been taking his medications not missing doses who presents to the emergency department chief complaint of generalized weakness and increased difficulty walking. According to the sister at bedside she states that yesterday he texted family and notes that he felt that he was too weak to get up. They noted that they got the text around 2:00 they got a walker and took it over to him as a figure that he would need this. They note that he was having shuffling with his feet which is not normal for him. He had again weakness today therefore they called EMS to have him brought here to be further evaluated. [facility] Medical History Loss of hearing Wears glasses Cancer Gout Thyroid disease Bladder disease High cholesterol Shortness of breath on exertion Former smoker History of echocardiogram Cardiology follow-up encounter History of atrial fibrillation HTN (hypertension) Hypothyroid Parkinson disease Home Medications ???Medication ???Instructions ???Recorded ???Last Taken ???Type amlodipine 10 mg tablet 10 tab PO DAILY blood pressure 03/0608/13/25 History carbidopa 25 mg-levodopa 100 mg 1 tab PO TID parkinsons 04/19/22 1 History tablet allopurinol 100 mg tablet 100 mg PO DAILYCM 60 days #60 tabs 10/21/23 Unknown Rx lisinopril 5 mg tablet 5 mg PO DAILY blood pressure 60 Unknown Rx days #60 tabs polyethylene glycol 3350 17 17 g PO DAILY constipation #119 08/11/25 Rx gram/dose oral powder (Miralax) grams apixaban 5 mg tablet (Eliquis) 5 mg PO DAILY heart 08/14/2508/14 History levothyroxine 100 mcg tablet 100 mcg PO DAILY disorder of 08/1408/13/25 History thyroid gland metoprolol succinate 50 mg 50 mg PO DAILY heart 08/14/2507/18 History tablet,extended release 24 hr Allergy/AdvReac Type Severity Reaction Status Date / Time No Known Allergies Allergy Verified 07/15/25 12:43 Surgical History Status post laparoscopic cholecystectomy Social History Smoking Status: Former smoker ROS ROS ED ROS Narrative Constitutional: Denies any fevers, chills, headaches Eyes: Denies change in vision double vision blurry vision Cardiovascular: Denies chest pain Respiratory: Denies shortness of breath Abdomen: Denies abdominal pain nausea vomit diarrhea : Denies urinary symptoms Neurological: Denies any numbness,, tingling Musculoskeletal: Complains of generalized weakness denies back pain Skin: Denies any rashes or lesions EXAM Physical Exam Narrative Exam Narrative: General: Patient was lying in bed resting comfortably did not appear to be in acute distress Head: Atraumatic, normocephalic Eyes: PERRL bilaterally, EOMI bilaterally, no conjunctival injection noted Neck: Soft, supple, trachea midline Cardiovascular: Regular rate and rhythm Respiratory: Clear to auscultation bilaterally Abdomen: Soft, nondistended, nontender to palpation Extremities: +4/5 strength at the bilateral lower extremities Neurological: Patient following commands that he was at [facility] the year is 2024 NIH of 0 GCS 15 Skin: Warm, dry, tact no rashes or lesions noted Const Vital Signs: 08/14/25 11:28 08/14/25 11:32 08/14/25 13:21 Temperature 98.2 F Temperature Source Oral Pulse Rate 88 75 Respiratory Rate 18 25 H Respiratory Effort Normal Non-Labored Respiratory Pattern Normal Blood Pressure 117/85 H 135/96 H Blood Pressure Mean 95 109 Pulse Ox 99 96 Oxygen Delivery Method Room Air 08/14/25 14:54 Temperature 98.2 F Temperature Source Pulse Rate 85 Respiratory Rate 12 Respiratory Effort Respiratory Pattern Blood Pressure 127/89 H Blood Pressure Mean 101 Pulse Ox 99 Oxygen Delivery Method MDM MDM MDM Narrative Medical decision making narrative: Patient is a 75-year-old male who presents to the emergency department the chief complaint of generalized weakness. On the differential diagnosis includes but not limited to ACS, pneumonia, electrolyte abnormality, worsening Parkinson's. Once workup (more content not included)... Normal [facility] H AND P Exam - [facility] 08-14-2025 H&P Exam - Hospitalist [facility] Medical Records Department [address] [place] [address] H P Exam - Hospitalist 08/14/25 1459 MR#: [id number] Acct: [id number] Name: TRACI DELA CRUZ Jr. Rep #: [id number] : 1950 75 From: Carlos Avalos DO PCP: Dr. Celso Hunt MD Status:ADM KARIN Location: MT3 [id number] HPI - General General Date of Admission: 08/14/25 Date of Service: 08/14/25 Chief Complaint: Worsening weakness and difficulty with ambulation HPI Narrative TRACI DELA CRUZ, is a 75 M who presented to [facility] ED on 08/14/2025 with worsening weakness and difficulty with ambulation. Medical history significant for Parkinson's disease, prior CVA, A-fib on Eliquis, hypertension and hypothyroidism. Patient lives at home alone. Uses a walker with ambulation at baseline. Has family that lives close by. Patient reports worsening generalized weakness in his legs and difficulty with ambulation over the past 2 to 3 days. Denies any infectious symptoms over that timeframe. Reports eating and drinking about his normal. No changes to any medications recently. In the ED he was normotensive and hemodynamically stable on room air at rest. Labs notable for WBC count 13, T. bili 1.3, otherwise benign. CT brain was unremarkable. Given his worsening debility, hospitalist was contacted for admission. I saw the patient at bedside in the ED, sister was present. Patient was mildly fatigued appearing but otherwise sitting back comfortably in bed and in no acute distress. He did have a flat affect and pill-rolling tremor noted. On exam he was able to lift both legs off the bed and hold them for about 8 to 10 seconds. His left leg was a bit weaker than his right. Denies any pain or muscle aches in his upper legs. No other acute concerns currently. Will be admitted for further management. [facility] Medical History Loss of hearing Wears glasses Cancer Gout Thyroid disease Bladder disease High cholesterol Shortness of breath on exertion Former smoker History of echocardiogram Cardiology follow-up encounter History of atrial fibrillation HTN (hypertension) Hypothyroid Parkinson disease Home Medications ???Medication ???Instructions ???Recorded ???Last Taken ???Type amlodipine 10 mg tablet 10 tab PO DAILY blood pressure 03/0608/13/25 History carbidopa 25 mg-levodopa 100 mg 1 tab PO TID parkinsons 04/19/22 1 History tablet allopurinol 100 mg tablet 100 mg PO DAILYCM 60 days #60 tabs 10/21/23 Unknown Rx lisinopril 5 mg tablet 5 mg PO DAILY blood pressure 60 Unknown Rx days #60 tabs polyethylene glycol 3350 17 17 g PO DAILY constipation #119 08/11/25 Rx gram/dose oral powder (Miralax) grams apixaban 5 mg tablet (Eliquis) 5 mg PO DAILY heart 08/14/2508/14 History levothyroxine 100 mcg tablet 100 mcg PO DAILY disorder of 08/1408/13/25 History thyroid gland metoprolol succinate 50 mg 50 mg PO DAILY heart 08/14/2507/18 History tablet,extended release 24 hr Allergy/AdvReac Type Severity Reaction Status Date / Time No Known Allergies Allergy Verified 07/15/25 12:43 Surgical History Status post laparoscopic cholecystectomy Social History Smoking Status: Former smoker ROS Constitutional Constitutional: Reports fatigue and weakness; Denies chills or fever(s) Eyes Eyes: Denies change in vision Cardiovascular Cardiovascular: Denies chest pain Respiratory/Chest Respiratory/Chest: Denies shortness of breath at rest Gastrointestinal Gastrointestinal: Denies abdominal pain, constipation, diarrhea, nausea or vomiting Genitourinary Genitourinary: Denies dysuria Musculoskeletal Musculoskeletal: Denies arthralgias, back pain or myalgias Neurologic Neurologic: Reports tremor(s); Denies dizziness, focal weakness, headache(s), numbness or tingling Vital Signs Vital Signs Vital Signs: 08/14/25 11:28 08/14/25 11:32 08/14/25 13:21 Temperature 98.2 F Temperature Source Oral Pulse Rate 88 75 Respiratory Rate 18 25 H Respiratory Effort Normal Non-Labored Respiratory Pattern Normal Blood Pressure 117/85 H 135/96 H Blood Pressure Mean 95 109 Pulse Ox 99 96 Oxygen Delivery Method Room Air 08/14/25 14:54 Temperature 98.2 F Temperature Source Pulse Rate 85 Respiratory Rate 12 Respiratory Effort Respiratory Pattern Blood Pressure 127/89 H Blood Pressure Mean 101 Pulse Ox 99 Oxygen Delivery Method Weight Weight: 90.8 kg Body Mass Index (BMI) 28.7 Physical Exam Const alert, oriented x3, no apparent distress and average b (more content not included)... Normal [facility] Partial Thromboplast Timeon 08-14-2025 aPTT Coag (Bld) [Time] 37.6 s High 24.1-36.2 [facility] Comment on above: Performed By: #### L 100.0600 #### [facility] [address] [place], [address] Prothrombin Time w/INRon INR Coag (PPP) [Relative time] 1.7 {INR} Normal [facility] Comment on above: Performed By: #### L 500.2500, L100.0500 #### [facility] [address] [place], [address] PT Coag (PPP) [Time] 20.2 s High 11.7-14.9 [facility] Comment on above: Performed By: #### L 500.2500, L100.0500 #### [facility] [address] [place], [address] Thyroid Stim Hormone (TSH)on 08-14-2025 TSH 2.820 uIU/mL Normal 0.300-4.200 [facility] Comment on above: Order Comment: Comme nts: ok to add on Performed By: #### L 500.2500, L100.0500 #### [facility] [address] [place], [address] Urinalysis, Completeon 08-14 Mucus Ql (Urine sed) 1+ /hpf Normal [facility] Comment on above: Order Comment: LYNDSEY CTOR TO SPECIFY Performed By: #### L 100.0600 #### [facility] [address] [place], [address] RBC 0-5 SEEN Normal 0-5 [facility] Comment on above: Order Comment: COLLE CTOR TO SPECIFY Performed By: #### L 100.0600 #### [facility] [address] [place], [address] WBC 5-10 SEEN Normal 0-5 [facility] Comment on above: Order Comment: LYNDSEY CTOR TO SPECIFY Performed By: #### L 100.0600 #### [facility] [address] [place], [address] BACTERIA 0 SEEN Normal None Seen [facility] Comment on above: Order Comment: LYNDSEY CTOR TO SPECIFY Performed By: #### L 100.0600 #### [facility] [address] [place], [address] EPI,SQUAMOUS 0 SEEN Normal 0-5 [facility] Comment on above: Order Comment: LYNDSEY CTOR TO SPECIFY Performed By: #### L 100.0600 #### [facility] [address] [place], [address] CNOVon 07-15-2025 CNOV Office Visit ([facility]) TRACI DELA CRUZ JR. ([id number]) 1950 M Date Time Provider Department 07/15/25 12:30 PM ANNETTE AVILES During your visit today, we recorded the following information about you: Annette Aviles APRN.MANAGER OF SECURITY 07/15/2025 12:32 PM Signed Patient came in [...] Allergy Reaction ABILIFY (ARIPIPRAZOLE) 12/09/2024 15 - Contraindication-Med ical Mai* Comments: People with Parkinson's disease should not take this or other antipsychotics except Nuplazid, Seroquel, and Clozaril can be prescribed. COMPAZINE (PROCHLORPERAZINE) 12/09/2024 15 - Contraindication-Med ical Mai* Comments: This should not be given to people with Parkinson's disease. If not otherwise contraindicated, Zofran should be given instead. HALDOL (HALOPERIDOL) 12/09/2024 15 - Contraindication-Med ical Mai* Comments: .ewhal PHENERGAN (PROMETHAZINE) 12/09/2024 15 - Contraindication-Med ical Mai* Comments: This should not be given to people with Parkinson's disease. If not otherwise contraindicated, Zofran should be given instead. REGLAN (METOCLOPRAMIDE) 12/09/2024 15 - Contraindication-Med ical Mai* Comments: This should not be given to people with Parkinson's disease. If not otherwise contraindicated and for nausea, Zofran should be given instead. ZYPREXA (OLANZAPINE) 06/09/2025 15 - Contraindication-Med ical Mai* Date Reviewed: 06/30/2025 Reviewed by: Jose Antonio Chase APRN.MANAGER OF SECURITY - Fully Assessed Primary Visit Diagnosis:Confusion [R41.0] [...] Bladder stones [N21.0] 12/05/2023 Encounter Status:Closed by ANNETTE AVILES on 07/15/25 Normal [facility] Emergency Department Summary on 07-15-2025 Emergency Department Summary [facility] Medical Records Department [address] [place] [address] Emergency Department Summary 07/15/25 MR#: [id number] Acct: [id number] Name: TRACI DELA CRUZ Rep #: [id number] : 1950 75 From: Murray Garces MD PCP: Dr. Celso Hunt MD Status:DEP ER Location: ED [facility] History of Present Illness Chief Complaint: Nosebleed Narrative Narrative: 75-year-old male past medical history of Parkinson's presents with epistaxis. It is mainly from his left nares. It started this morning at around 1130, approximately 3 hours ago. It stopped on its own. He relates history that about a week ago, he had cauterization done by otolaryngology for nosebleed and was doing well. He had stopped his Eliquis but restarted it. Went to urgent care today. They sent him in with concern for TIA versus confusion as they noticed that he had issues on the wrong feet. Patient states that he does this on occasion. Once he realized it he changed them immediately. He denies any headache, no fevers or chills, no nausea or vomiting, no other symptoms. No difficulty breathing. [facility] Medical History Loss of hearing Wears glasses Cancer Gout Thyroid disease Bladder disease High cholesterol Shortness of breath on exertion Former smoker History of echocardiogram Cardiology follow-up encounter History of atrial fibrillation HTN (hypertension) Hypothyroid Parkinson disease Home Medications ???Medication ???Instructions ???Recorded ???Last Taken ???Type amlodipine 10 mg tablet 10 tab PO DAILY blood pressure 03/0610/19/23 History carbidopa 25 mg-levodopa 100 mg 1 tab PO TID parkinsons 04/19/22 0 10/19/23 History tablet levothyroxine 50 mcg tablet 50 mcg PO DAILY thyroid 04/19/22 0 10/19/23 History triamterene 75 1 tab PO DAILY blood pressure 03/06 Unknown History mg-hydrochlorothiazi de 50 mg tablet allopurinol 100 mg tablet 100 mg PO DAILYCM 60 days #60 tabs 10/21/23 Unknown Rx lisinopril 5 mg tablet 5 mg PO DAILY 60 days #60 tabs 04/08 Unknown Rx apixaban 5 mg tablet (Eliquis) 2.5 mg (1/2 x 5 mg) PO BID 60 days 02/25/24 03/16/24 Rx #120 tabs ciprofloxacin HCl 500 mg tablet 500 mg PO BID #10 tabs 03/20/24 Un known Rx finasteride 5 mg tablet (Proscar) 5 mg PO DAILY #90 tabs 03/20/24 U nknown Rx tamsulosin 0.4 mg capsule (Flomax) 0.4 mg PO DAILY #90 caps 4 Unknown Rx polyethylene glycol 3350 17 17 g PO DAILY #119 grams 06/11/25 Unknown Rx gram/dose oral powder (Miralax) sennosides 8.6 mg-docusate sodium 1 tab-cap PO DAILY 14 days #14 ta bs 06/11/25 Unknown Rx 50 mg tablet (Senna with Docusate Sodium) Allergy/AdvReac Type Severity Reaction Status Date / Time No Known Allergies Allergy Verified 07/15/25 12:43 Surgical History Status post laparoscopic cholecystectomy Social History Smoking Status: Former smoker ROS ROS ED ROS Narrative Review of systems positive for epistaxis from left nares, resolved. Reported confusion with history of Parkinson's. Denies headache, neck pain, nausea or vomiting, no other bleeding diathesis. EXAM Physical Exam Narrative Exam Narrative: Afebrile. Vital signs noted. Nontoxic-appearing. Cardiovascular examination regular rate and rhythm. Lungs are clear to auscultation bilaterally. Abdomen is soft and nontender. Neurological examination shows tremor of bilateral upper extremities consistent with Parkinson's. He is able to ambulate to the cot, and transfer from chair to standing and standing to the cot. He does this independently. Dried blood on left nares, no posterior pharynx hemorrhage. No other noted bleeding diathesis. Neurological examination shows him to be awake, alert, oriented to person, place, and time as well as current events. Const Vital Signs: 07/15/25 12:44 07/15/25 14:30 Temperature 97.5 F L 98.1 F Temperature Source Temporal Pulse Rate 87 71 Respiratory Rate 18 16 Blood Pressure 135/91 H 112/59 L Blood Pressure Mean 105 76 Pulse Ox 98 100 Oxygen Delivery Method Room Air MDM MDM MDM Narrative Medical decision making narrative: Medical screening exam is negative for any acute process. Regarding the dried blood in his nares. I offered to perform nasal packing, but patient declines and states that his nose to stop bleeding. I considered laboratory work to check for anemia, but through shared decision making patient declined. I also offered to do lab work to look for dehydration. However, the patient is awake, alert, and oriented. I do not feel stroke team is indicated because there is no debilitating deficit and his NIH stroke scale is e (more content not included)... Normal [facility] CNOVon 06-30-2025 CNOV Office Visit ([facility]) DILUCCA,TRACI A JR. ([id number]) 1950 M Date Time Provider Department 06/30/25 1:45 PM PILOJOSE ANTONIO CORIE During your visit today, we recorded the following information about you: Temperature Pulse Respiration Blood pressure 98.3 degrees 110/minute 16/minute 124/70 Weight 88.3 kg Jose Antonio Chase APRN.MANAGER OF SECURITY 06/30/2025 2:46 PM Signed [facility] Subjective Traci Dela Cruz Jr. is a 75 year old male. [...] seizures, syncope, weakness, light-headedness, numbness and headaches. Psychiatric/Behavior al: Negative for confusion. Objective BP 124/70 Pulse [...] of care. This note was generated using [employer] software. It may contain errors in wording, punctuation, or spelling. Jose Antonio Chase APRN.MANAGER OF SECURITY History and Record Review Clinical information obtained from an independent historian. History obtained from or confirmed by: parent. External record(s) reviewed: prior outpatient record. Disposition The patient was discharged. OTC Medications were advised: Procedures Allergies As of Date: 06/30/2025 Noted Allergy Reaction ABILIFY (ARIPIPRAZOLE) 12/09/2024 15 - Contraindication-Med ical Mai* Comments: People with Parkinson's disease should not take this or other antipsychotics except Nuplazid, Seroquel, and Clozaril can be prescribed. COMPAZINE (PROCHLORPERAZINE) 12/09/2024 15 - Contraindication-Med ical Mai* Comments: This should not be given to people with Parkinson's disease. If not otherwise contraindicated, Zofran should be given instead. HALDOL (HALOPERIDOL) 12/09/2024 15 - Contraindication-Med ical Mai* Comments: .ewhal PHENERGAN (PROMETHAZINE) 12/09/2024 15 - Contraindication-Med ical Mia* Comments: This should not be given to people with Parkinson's disease. If not otherwise contraindicated, Zofran should be given instead. REGLAN (METOCLOPRAMIDE) 12/09/2024 15 - Contraindication-Med ical Mai* Comments: This should not be given to people with Parkinson's disease. If not otherwise contraindicated and for nausea, Zofran should be given instead. ZYPREXA (OLANZAPINE) 06/09/2025 15 - Contraindication-Med ical Mai* Date Reviewed: 06/30/2025 Reviewed by: Jose Antonio Chase APRN.MANAGER OF SECURITY - Fully Assessed Reason for Visit: Nose Bleed [204] Cmt: x 2 days Primary Visit Diagnosis:Epistaxis [R04.0] Order(s):oxymetazoli ne (AFRIN, OXYMETAZOLINE,) 0.05 % nasal sprayUse 2 sprays in the nose two times a day.Disp: 22 mLRfl: 0 Prescriptions as of 06/30/2025 - oxymetazoline (A (more content not included)... Normal [facility] 06-30-2025 ALIVIAN Telephone (YARY) TRACI DELA CRUZ JR. ([id number]) 1950 M Date Time Provider Department 06/30/25 YANIRA REDD During your visit today, we recorded the following information about you: Giuliana Elam, JESSIKA 06/30/2025 3:16 PM Signed Pt called stating [...] of care. This note was generated using [employer] software. It may contain errors in wording, punctuation, or spelling. DENIA: 02/26/[address] Redd ASSESSMENT/PLAN: 1. New onset atrial fibrillation (HCC) - ICD9: 427.31, ICD10: I48.91 [id number] 5. He reports heart rates in the 50s at home. Regular rhythm on exam. - On Eliquis 5 mg p.o. bid. Denies any bleeding or falls or trauma. - On metoprolol 50 mg po daily. Tolerating well. - He would like to f/u in 6 months, sooner if medically necessary. Yanira Redd MD 06/30/2025 6:28 PM Signed No since it resolves within 2 to 3 minutes. I have placed an order for CBC which he can proceed to the lab to check if his nose bleeds continue. Follow-up with his PCP and ENT. Yanira Redd MD 06/30/2025 6:28 PM Signed Addended by: YANIRA REDD on: 06/30/2025 06:28 PM Modules accepted: Orders Terrance Mercedes RN 07/01/2025 10:18 AM Signed Called pt to review message, left VM to call us back Terrance Mercedes RN 07/03/2025 2:04 PM Signed Called pt Informed him of Dr. Redd message, He will look to get lab done. Allergies As of Date: 06/30/2025 Noted Allergy Reaction ABILIFY (ARIPIPRAZOLE) 12/09/2024 15 - Contraindication-Med ical Mai* Comments: People with Parkinson's disease should not take this or other antipsychotics except Nuplazid, Seroquel, and Clozaril can be prescribed. COMPAZINE (PROCHLORPERAZINE) 12/09/2024 15 - Contraindication-Med ical Mai* Comments: This should not be given to people with Parkinson's disease. If not otherwise contraindicated, Zofran should be given instead. HALDOL (HALOPERIDOL) 12/09/2024 15 - Contraindication-Med ical Mai* Comments: .ewhal PHENERGAN (PROMETHAZINE) 12/09/2024 15 - Contraindication-Med ical Mai* Comments: This should not be given to people with Parkinson's disease. If not otherwise contraindicated, Zofran should be given instead. REGLAN (METOCLOPRAMIDE) 12/09/2024 15 - Contraindication-Med ical Mai* Comments: This should not be given to people with Parkinson's disease. If not otherwise contraindicated and for nausea, Zofran should be given instead. ZYPREXA (OLANZAPINE) 06/09/2025 15 - Contraindication-Med ical Mai* Date Reviewed: 06/30/2025 Reviewed by: Jose Antonio Chase APRN.MANAGER OF SECURITY - Fully Assessed Primary Visit Diagnosis:Bleeding from the nose [R04.0] Order(s):COMPLETE BLOOD COUNT [SQCBC] Order #: [id number] FUTURE Prescriptions as of 07/03/2025 - oxymetazoline [...] once daily. - apixaban (ELIQUIS) 5 mg tab( (more content not included)... Normal [facility] CNOVon 06-18-2025 [facility] TRACI DELA CRUZ JR. ([id number]) 1950 M Date Time Provider Department 06/18/25 1:20 PM MANUELA PHAM During your visit today, we recorded the following information about you: Pulse Blood pressure Weight 86/minute 118/82 87.1 kg Manuela Pham APRN.MANAGER OF SECURITY 06/18/2025 1:54 PM Signed Increase the miralax to twice daily until stooling more regularly. Can also try the suppositories. If no improvement/worsenin g, let us know. Manuela Pham APRN.MANAGER OF SECURITY 06/20/2025 9:55 AM Signed This is a [...] due to dental issues. - Previously used [id number] stool softeners and laxatives with limited success. [...] daily as needed for constipation. No current facility-administere d medications for this visit. FAMILY HISTORY Problem [...] severe constipation requiring manual disimpaction and enemas i (more content not included)... Normal [facility] Abdomen/Pelvis W IV Cont ONL Yon 06-11-2025 Abdomen/Pelvis W IV Cont ONLY [facility] Imaging Services [facility] [place] [address] Abdomen/Pelvis W IV Cont ONLY MR#: [id number] Acct: [id number] Name: TRACI DELA CRUZ JrSyl Rep #: [id number] : 1950 M 75 From: Angelica Rockwell MD PCP: Dr. Celso Hunt MD Status: REG ER Study: Abdomen/Pelvis W IV Cont ONLY Date of Exam: Exam# [id number] Ordering Dr: Ruiz Swann DO EXAM: CT Abdomen and Pelvis With Intravenous Contrast CLINICAL INDICATION: CONSTIPATION TECHNIQUE: Axial computed tomography images of the abdomen and pelvis with intravenous contrast. This CT exam was performed using one or more of the following dose reduction techniques: automated exposure control, adjustment of the mA and/or kV according to patient size, and/or use of iterative reconstruction technique. COMPARISON: CT Abdomen Pelvis dated 02/25/2024 FINDINGS: LUNG BASES: Unremarkable. No mass. No consolidation. HEART: Mild cardiomegaly. MEDIASTINUM: Small esophageal hiatal hernia. ABDOMEN: LIVER: Hepatomegaly with fatty infiltration. GALLBLADDER AND BILE DUCTS: Unremarkable. No calcified stones. No ductal dilation. PANCREAS: Unremarkable. No mass. No ductal dilation. SPLEEN: Unremarkable. No splenomegaly. ADRENALS: Unremarkable. No mass. KIDNEYS AND URETERS: Unremarkable. No solid mass. No hydronephrosis. STOMACH AND BOWEL: Fecal retention in the colon consistent with constipation. No obstruction. No mucosal thickening. PELVIS: APPENDIX: No findings to suggest acute appendicitis. BLADDER: Unremarkable. No mass. REPRODUCTIVE: Unremarkable as visualized. ABDOMEN and PELVIS: INTRAPERITONEAL SPACE: Unremarkable. No free air. No significant fluid collection. BONES/JOINTS: Degenerative disc disease throughout the lumbar spine. Degenerative facet arthropathy throughout the lumbar spine, most prominent in the lower lumbar spine. No acute fracture. No dislocation. SOFT TISSUES: Inguinal hernias, bilaterally. VASCULATURE: Unremarkable. No abdominal aortic aneurysm. LYMPH NODES: Unremarkable. No enlarged lymph nodes. CT/Abdomen/Pelvis W IV Cont ONLY IMPRESSION: 1. Small esophageal hiatal hernia. 2. Hepatomegaly with fatty infiltration. 3. Fecal retention in the colon consistent with constipation. 4. Inguinal hernias, bilaterally. 5. Degenerative changes lumbar spine as described. Reading Location: [facility] CC: Dr. Ruiz Swann DO; Dr. Celso Hunt MD [employer] M[employer] Remittance Clerk: Signed Normal [facility] Absolute lymphocyte countOrd ered By: Ruiz Swann on 06-11-2025 Lymphocytes Auto (Unsp spec) [#/Vol] 1.41 10*3/uL 0.83-4.51 [facility] Absolute neutrophil countOrd ered By: Ruiz Swann on 06-11-2025 Neutrophils (Bld) [#/Vol] 7.8 10*3/uL High 2.0-7.7 [facility] Anion gap in Serum or Plasma Ordered By: Ruiz Swann on 06-11-2025 Anion gap [Moles/Vol] 13 mmol/L 5- [facility] Automated lymphocyte count a s percentage of total leukocytesOrdered By: Ruiz ClarkkarenMedhat on 06-11-2025 Lymphocytes/100 WBC Auto (Unsp spec) 13.2 % Low 19-41 [facility] BUN/creatinine ratioOrdered By: Ruiz JerardoEna on 06-11-2025 Urea nitrogen/Creatinine [Mass ratio] 22.5 mg/mg High 10-20 [facility] Basic Metabolic Profile (BMP )on 06-11-2025 BUN/CRE 22.5 RATIO High 10- [facility] Comment on above: Performed By: #### L 100.0600 #### [facility] [address] [place], [address] Calcium [Mass/Vol] 9.4 mg/dL Normal 7.6-11.0 [facility] Comment on above: Performed By: #### L 100.0600 #### [facility] [address] [place], [address] Chloride [Moles/Vol] 99 mmol/L Normal 98-108 [facility] Comment on above: Performed By: #### L 100.0600 #### [facility] [address] [place], [address] CO2 [Moles/Vol] 25.6 mmol/L Normal 21.0-32.0 [facility] Comment on above: Performed By: #### L 100.0600 #### [facility] [address] [place], [address] Creatinine [Mass/Vol] 1.19 mg/dL Normal 0.70-1.20 [facility] Comment on above: Performed By: #### L 100.0600 #### [facility] [address] [place], [address] GAP 13 Normal -15 [facility] Comment on above: Performed By: #### L 100.0600 #### [facility] [address] [place], [address] GFR/1.73 sq M.predicted among non-blacks MDRD (S/P/Bld) [Vol rate/Area] 63 mL/min/{1.73_m2} Normal >60 [facility] Comment on above: Result Comment: mL/m in/1.73m2 CKD-EPI Creatinine Equation (2020) Performed By: #### L 100.0600 #### [facility] [address] [place], [address] Glucose [Mass/Vol] 89 mg/dL Normal 70-99 [facility] Comment on above: Performed By: #### L 100.0600 #### [facility] [address] [place], [address] Potassium [Moles/Vol] 3.9 mmol/L Normal 3.3-5.1 [facility] Comment on above: Performed By: #### L 100.0600 #### [facility] [address] [place], [address] Sodium [Moles/Vol] 137 mmol/L Normal 133-145 [facility] Comment on above: Performed By: #### L 100.0600 #### [facility] [address] [place], [address] Urea nitrogen [Mass/Vol] 27 mg/dL High 4-19 [facility] Comment on above: Performed By: #### L 100.0600 #### [facility] [address] [place], [address] Basophil percentageOrdered B y: Ruiz Swann on 06-11-2025 Basophils/100 WBC (Bld) 0.9 % 0-1 [facility] CBC W/Diff, Automatedon - Absolute Lymph 1.41 X10 3/uL Normal 0.83-4.51 [facility] Comment on above: Performed By: #### L 100.0600 #### [facility] [address] [place], [address] Absolute Neut 7.8 X10 3/uL High 2.0-7.7 [facility] Comment on above: Performed By: #### L 100.0600 #### [facility] [address] [place], [address] Basophils/100 WBC (Bld) 0.9 % Normal 0-1 [facility] Comment on above: Performed By: #### L 100.0600 #### [facility] [address] [place], [address] Eosinophils/100 WBC (Bld) 1.4 % Normal 0-5 [facility] Comment on above: Performed By: #### L 100.0600 #### [facility] [address] [place], [address] Erythrocyte distribution width (RBC) [Ratio] 13.2 % Normal 11.6-14.6 [facility] Comment on above: Performed By: #### L 100.0600 #### [facility] [address] [place], [address] Hematocrit (Bld) [Volume fraction] 44.4 % Normal 40-54 [facility] Comment on above: Performed By: #### L 100.0600 #### [facility] [address] [place], [address] Hemoglobin (Bld) [Mass/Vol] 15.1 g/dL Normal 13.0-16.5 [facility] Comment on above: Performed By: #### L 100.0600 #### [facility] [address] [place], [address] IG% 0.400 Normal 0.0-0.9 [facility] Comment on above: Result Comment: IG% - Immature Granulocytes (promyelocytes, myelocytes and metamyelocytes) > 1% indicates that a LEFT SHIFT is Present. Performed By: #### L 100.0600 #### [facility] [address] [place], [address] Lymphocytes/100 WBC (Bld) 13.2 % Low 19-41 [facility] Comment on above: Performed By: #### L 100.0600 #### [facility] [address] [place], [address] MCH (RBC) [Entitic mass] 28.3 pg Normal 27.0-32.0 [facility] Comment on above: Performed By: #### L 100.0600 #### [facility] [address] [place], [address] MCHC (RBC) [Mass/Vol] 34.0 g/dL Normal 32-36 [facility] Comment on above: Performed By: #### L 100.0600 #### [facility] [address] [place], [address] MCV (RBC) [Entitic vol] 83.1 fL Normal 80-94 [facility] Comment on above: Performed By: #### L 100.0600 #### [facility] [address] [place], [address] Monocytes/100 WBC (Bld) 11.6 % High 0-10 [facility] Comment on above: Performed By: #### L 100.0600 #### [facility] [address] [place], [address] Neutrophils/100 WBC (Bld) 72.5 % High 47-70 [facility] Comment on above: Performed By: #### L 100.0600 #### [facility] [address] [place], [address] Nucleated RBC (Bld) [#/Vol] 0 10*3/uL Normal 0-5 [facility] Comment on above: Performed By: #### L 100.0600 #### [facility] [address] [place], [address] Platelet mean volume (Bld) [Entitic vol] 10.4 fL Normal 6.2-12.0 [facility] Comment on above: Performed By: #### L 100.0600 #### [facility] [address] [place], [address] Platelets (Bld) [#/Vol] 213 10*3/uL Normal 150-450 [facility] Comment on above: Performed By: #### L 100.0600 #### [facility] [address] [place], [address] RBC (Bld) [#/Vol] 5.34 10*6/uL Normal 4.6-6.2 [facility] Comment on above: Performed By: #### L 100.0600 #### [facility] [address] [place], [address] RDW SD 39.6 fl Normal 35.1-43.9 [facility] Comment on above: Performed By: #### L 100.0600 #### [facility] [address] [place], [address] WBC (Bld) [#/Vol] 10.7 10*3/uL Normal 4.4-11.0 [facility] Comment on above: Performed By: #### L 100.0600 #### [facility] [address] [place], [address] Carbon dioxide, total [Moles /volume] in Central venous bloodOrdered By: Ruiz Swann on 06-11-2025 CO2 [Moles/Vol] 25.6 mmol/L 21.0-32.0 [facility] Chloride assayOrdered By: Roney Swann on 06-11-2025 Chloride [Moles/Vol] 99 mmol/L 98-108 [facility] Emergency Department Summary on 06-11-2025 Emergency Department Summary [facility] Medical Records Department [address] [place] [address] Emergency Department Summary 06/11/25 MR#: [id number] Acct: [id number] Name: TRACI DELA CRUZ Jr. Rep #: [id number] : 1950 75 From: Ruiz Swann DO PCP: Dr. Celso Hunt MD Status:REG ER Location: ED HPI History of Present Illness Chief Complaint: Constipation Narrative Narrative: Chief complaint and HPI: Constipation. 75-year-old male with past medical history of CVA on Eliquis, Parkinson's disease, HTN who presents for evaluation of constipation. Patient states that he intermittently suffers from constipation secondary to his Parkinson's disease. He does not take a daily bowel regiment. Patient states he has not had a bowel movement for the past week. He denies any fever, chills, chest pain, shortness of breath, abdominal pain, dysuria, diarrhea. Review of systems: See HPI Medications: As listed on the chart Allergies: As listed on the chart PFSH: Per chart Vital signs: As listed on the chart. Reviewed. Physical exam: Gen: A O x3, NAD Head: Normocephalic, atraumatic Eyes: No sclera icterus, conjunctiva clear ENT: Moist mucous membranes Neck: Trachea midline CV: RRR, no murmurs, no peripheral edema Resp: Lungs CTA BL, no w/r/c GI: Abd soft, non-distended, non-tender, no r/r/g Rectal: Normal external examination except for dried bright red blood around the anus, no evidence of hemorrhoids or fissures. Normal tone and sensation. Hard brown stool in the rectal vault. I was able to manually disimpact a lot of the stool. Stool does have some bright red blood streaking. Musc: Full ROM, no deformity Skin: Warm, dry Neuro: Alert, oriented, grossly intact, sensation intact Psych: Cooperative, appropriate mood and affect [facility] Medical History (Updated 06/11/25 @ 22:[address] Ruiz Swann, DO) Loss of hearing Wears glasses Cancer Gout Thyroid disease Bladder disease High cholesterol Shortness of breath on exertion Former smoker History of echocardiogram Cardiology follow-up encounter History of atrial fibrillation HTN (hypertension) Hypothyroid Parkinson disease Home Medications ???Medication ???Instructions ???Recorded ???Last Taken ???Type amlodipine 10 mg tablet 10 tab PO DAILY blood pressure 03/0610/19/23 History carbidopa 25 mg-levodopa 100 mg 1 tab PO TID parkinsons 04/19/22 0 10/19/23 History tablet levothyroxine 50 mcg tablet 50 mcg PO DAILY thyroid 04/19/22 0 10/19/23 History triamterene 75 1 tab PO DAILY blood pressure 03/06 Unknown History mg-hydrochlorothiazi de 50 mg tablet allopurinol 100 mg tablet 100 mg PO DAILYCM 60 days #60 tabs 10/21/23 Unknown Rx lisinopril 5 mg tablet 5 mg PO DAILY 60 days #60 tabs 04/08 Unknown Rx apixaban 5 mg tablet (Eliquis) 2.5 mg (1/2 x 5 mg) PO BID 60 days 02/25/24 03/16/24 Rx #120 tabs ciprofloxacin HCl 500 mg tablet 500 mg PO BID #10 tabs 03/20/24 Un known Rx finasteride 5 mg tablet (Proscar) 5 mg PO DAILY #90 tabs 03/20/24 U nknown Rx tamsulosin 0.4 mg capsule (Flomax) 0.4 mg PO DAILY #90 caps 4 Unknown Rx polyethylene glycol 3350 17 17 g PO DAILY #119 grams 06/11/25 Unknown Rx gram/dose oral powder (Miralax) sennosides 8.6 mg-docusate sodium 1 tab-cap PO DAILY 14 days #14 ta bs 06/11/25 Unknown Rx 50 mg tablet (Senna with Docusate Sodium) Allergy/AdvReac Type Severity Reaction Status Date / Time No Known Allergies Allergy Verified 06/11/25 18:32 Surgical History Status post laparoscopic cholecystectomy Social History Smoking Status: Former smoker EXAM Physical Exam Const Vital Signs: 06/11/25 18:31 06/11/25 20:30 Temperature 98.7 F Temperature Source Oral Pulse Rate 79 100 Respiratory Rate 16 18 Blood Pressure 115/86 H 130/75 H Blood Pressure Mean 95 93 Pulse Ox 98 98 Oxygen Delivery Method Room Air MDM MDM MDM Narrative Medical decision making narrative: 75-year-old male with past medical history of CVA on Eliquis, Parkinson's disease, HTN who presents for evaluation of constipation. Patient states that he intermittently suffers from constipation secondary to his Parkinson's disease. He does not take a daily bowel regiment. Has not had a bowel movement in 1 week. See physical exam findings. I was able to manually disimpact some of the stool in the rectal vault. Patient did have some streaking of bright red blood. Given the bright red blood, we will performed basic labs with CT abdomen and pelvis. Differential diagnosis includes but is not limited to constipation, electrolyte abnormality, GI bleed, colitis. CBC without leukocytosis or a (more content not included)... Normal [facility] Eosinophil percentageOrdered By: Ruiz Swann on 06-11-2025 Eosinophils/100 WBC (Bld) 1.4 % 0-5 [facility] Erythrocyte distribution wid th ratioOrdered By: Ruiz Swann on 06-11-2025 Erythrocyte distribution width (RBC) [Ratio] 13.2 % 11.6-14.6 [facility] Erythrocyte distribution wid th standard deviationOrdered By: Ruiz Meléndez on 06-11-2025 Erythrocyte distribution width (RBC) [Ratio] 39.6 fl 35.1-43.9 [facility] Glomerular filtration rate ( GFR) estimation/1.73 sq m using serum, plasma, or whole bOrdered By: Ruiz Swann on 06-11-2025 GFR/1.73 sq M.predicted among non-blacks MDRD (S/P/Bld) [Vol rate/Area] 63 mL/min/{1.73_m2} >60 [facility] Comment on above: mL/min/1.73m2 CKD-EP I Creatinine Equation (2020) Hematocrit Auto (Bld) [Volum e fraction]Ordered By: Ruiz Swann on 06-11-2025 Hematocrit (Bld) [Volume fraction] 44.4 % 40-54 [facility] Hemoglobin measurementOrdere d By: Ruiz Swann on 06-11-2025 Hemoglobin (Bld) [Mass/Vol] 15.1 g/dL 13.0-16.5 [facility] Immature granulocytes/100 WB C Auto (Bld)Ordered By: Ruiz Swann on 06-11-2025 Immature granulocytes/100 WBC (Bld) 0.400 % 0.0-0.9 [facility] Comment on above: IG% - Immature Granu locytes (promyelocytes, myelocytes and metamyelocytes) > 1% indicates that a LEFT SHIFT is Present. Lactic Acidon 06-11-2025 Lactate [Moles/Vol] mmol/L Normal 0.0-2.0 [facility] Comment on above: Order Comment: Y Performed By: #### L 100.0600 #### [facility] [address] [place], [place] [address], [place], [id number] Lactic acid measurementOrder ed By: Ruiz Swann on 06-11-2025 Lactate [Moles/Vol] mmol/L 0.0-2.0 [facility] MCV (mean corpuscular volume ) determinationOrdered By: Ruiz Swann on 06-11-2025 MCV (RBC) [Entitic vol] 83.1 fL 80-94 [facility] Mean corpuscular hemoglobin (MCH) determinationOrdered By: Ruiz Swann on 06-11-2025 MCH (RBC) [Entitic mass] 28.3 pg 27.0-32.0 [facility] Mean corpuscular hemoglobin concentration (MCHC) determinationOrdered By: Ruiz Swann on 06-11-2025 MCHC (RBC) [Mass/Vol] 34.0 g/dL 32-36 [facility] Mean platelet volume determi nationOrdered By: Ruiz Swann on 06-11-2025 Platelet mean volume (Bld) [Entitic vol] 10.4 fL 6.2-12.0 [facility] Monocyte percentageOrdered B y: Ruiz Swann on 06-11-2025 Monocytes/100 WBC (Bld) 11.6 % High 0-10 [facility] Neutrophil percentageOrdered By: Ruiz Swann on 06-11-2025 Neutrophils/100 WBC (Bld) 72.5 % High 47-70 [facility] Nucleated red blood cell per centageOrdered By: Ruiz Swann on 06-11-2025 Nucleated RBC/100 WBC (Bld) [Ratio] 0 % 0-5 [facility] Platelet countOrdered By: Roney Swann on 06-11-2025 Platelets (Bld) [#/Vol] 213 10*3/uL 150-450 [facility] Potassium measurement (mass/ volume)Ordered By: Ruiz Swann on 06-11-2025 Potassium (Unsp spec) [Mass/Vol] 3.9 mmol/L 3.3-5.1 [facility] RBC Auto (Bld) [#/Vol]Ordere d By: Ruiz Swann on 06-11-2025 RBC (Bld) [#/Vol] 5.34 10*6/uL 4.6-6.2 [facility] Serum creatinine measurement (mass/volume)Ordered By: Ruiz Swann on 06-11-2025 Creatinine [Mass/Vol] 1.19 mg/dL 0.70-1.20 [facility] Serum glucose measurement (m ass/volume)Ordered By: Ruiz Swann on 06-11-2025 Glucose [Mass/Vol] 89 mg/dL 70-99 [facility] Serum or plasma calcium lexx urement (mass/volume)Ordered By: Ruiz Meléndez on 06-11-2025 Calcium [Mass/Vol] 9.4 mg/dL 7.6-11.0 [facility] Serum or plasma urea nitroge n measurement (mass/volume)Ordered By: Ruiz Swann on 06-11-2025 Urea nitrogen [Mass/Vol] 27 mg/dL High 4-19 [facility] Sodium levelOrdered By: Kal l Hue on 06-11-2025 Sodium [Moles/Vol] 137 mmol/L 133-145 [facility] White blood cell (WBC) count Ordered By: Ruiz Swann on 06-11-2025 WBC (Bld) [#/Vol] 10.7 10*3/uL 4.4-11.0 [facility] CNOVon 06-09-2025 CNOV Office Visit (NRMDN) TRACI DELA CRUZ JR. ([id number]) 1950 M Date Time Provider Department 06/09/25 10:00 AM SADE SHINE During your visit today, we recorded the following information about you: Weight Height 88.2 kg 1.803 m Sade Shine APRN.CNP 06/09/2025 1:58 PM Signed [facility] - FOLLOW UP EVALUATION Recording using [employer] software for draft documentation of the visit was discussed with the patient/authorized sales representative door to door; all questions welcomed and answered. Patient/authorized sales representative door to door agreed to proceed Daniella Samuels APRN.MANAGER OF SECURITY [address] [facility] [address] Dear Daniella Samuels APRN.MANAGER OF SECURITY: I had the pleasure of seeing Mr. Dela Cruz for follow-up today. As you know he [...] clinical research? Not currently Interval History: Mr. Dela Cruz is seen alone. He reports experiencing tremors [...] yard activities. He has a sister and [id number] who live nearby and provide support. Other [...] over 50 is above average, under 50 i (more content not included)... Normal [facility] CNOVon 02-26-2025 CNOV Office Visit (YARY) TRACI DELA CRUZ JR. ([id number]) 1950 M Date Time Provider Department 02/26/25 10:40 AM YANIRA REDD During your visit today, we recorded the following information about you: Pulse Blood pressure Weight Height 70/minute 116/60 84 kg 1.803 m Yanira Redd MD 02/26/2025 10:52 AM [facility] [place] SECTION OF REGIONAL CARDIOLOGY OUTPATIENT VISIT DATE 02/26/2025 OUTPATIENT VISIT TYPE ESTABLISHED PRIMARY CARE PHYSICIAN: Celso Hunt [address] [place] [address] HISTORY OF PRESENT ILLNESS: Mr. Dela Cruz is a 73 year old male, history [...] equipment, etc. Prior Hx: He presented to [place] on 10/19/2023 with blurred vision that started [...] no evidence of large vessel occlusion and absentee-shawnee of Peng. TTE 10/19/2023: EF 60%, grade [...] Problems Father ALLERGIES Allergen Reactions Abilify [Aripiprazo* Contraindication-Med ical Surgical People with Parkinson's disease should not take this or other antipsychotics except Nuplazid, Seroquel, and Clozaril can be prescribed. Compazine [Prochlor* Contraindication-Med ical Surgical This should not be given to people with Parkinson's disease. If not otherwise contraindicated, Zofran should be given instead. Haldol [Haloperidol] Contraindication-Med ical Surgical .ewhal Phenergan [Prometha* Contraindication-Med ical Surgical This should not be given to people with Parkinson's disease. If not otherwise contraindicated, Zofran should be given instead. Reglan [Metoclopram* Contraindication-Med ical Surgical This should not be given to [...] 116/60 Pulse 70 Ht 180.3 cm (5' 11") Wt 84 kg (185 lb 3 oz) SpO2 98% BMI 25.83 kg/m? General: (more content not included)... Normal [facility] Abdomen Single View (Portabl e)on 02-19-2025 Abdomen Single View (Portable) [facility] Imaging Services [address] [place] [address] Abdomen Single View (Portable) MR#: [id number] Acct: [id number] Name: TRACI DELA CRUZ Jr. Rep #: [id number] : 1950 M 74 From: Jeremy leary MD PCP: Dr. Celso Hunt MD Status: REG ER Study: Abdomen Single View (Portable) Date of Exam: 0 02/19/25 Exam# [id number] Ordering Dr: Annia Camara DO PROCEDURE: ABDOMEN SINGLE VIEW (PORTABLE) 02/19/2025 REASON FOR EXAM: CONSTIPATION TECHNIQUE: Single view abdomen. COMPARISON: CT abdomen and pelvis 02/25/2024 FINDINGS: Bowel gas: Nonobstructive bowel gas pattern. Moderate colonic stool. Calcifications: No suspicious calcification Bones: Degenerative changes of the lumbar spine. Other: RAD/Abdomen Single View (Portable) IMPRESSION: Nonobstructive bowel gas pattern. Moderate colonic stool. Reading Location: [facility] CC: Dr. Annia Camara DO; Dr. Celso Hunt MD Rent And Miscellaneous Remittance Clerk: Signed [facility] 02-19-2025 [facility] Office Visit (WSTR) TRACI DELA CRUZ JR. ([id number]) 1950 M Date Time Provider Department 02/19/25 8:00 AM ALLEN NASCIMENTO [facility] During your visit today, we recorded the following information about you: Temperature Pulse Respiration Blood pressure 99.5 degrees 80/minute 16/minute 122/60 Weight 86.4 kg Allen Nascimento PA 02/19/2025 8:06 AM [facility] Subjective Traci Dela Cruz Jr. is a 74 year old male. [...] Allergy Reaction ABILIFY (ARIPIPRAZOLE) 12/09/2024 15 - Contraindication-Med ical Mai* Comments: People with Parkinson's disease should not take this or other antipsychotics except Nuplazid, Seroquel, and Clozaril can be prescribed. COMPAZINE (PROCHLORPERAZINE) 12/09/2024 15 - Contraindication-Med ical Mai* Comments: This should not be given to people with Pa (more content not included)... Normal [facility] Emergency Department Summary on 02-19-2025 Emergency Department Summary [facility] Medical Records Department [address] [place] [address] Emergency Department Summary 02/19/25 MR#: [id number] Acct: [id number] Name: TRACI DELA CRUZ Jr. Rep #: [id number] : 1950 74 From: Annia Camara DO PCP: Dr. Celso Hunt MD Status:DEP ER Location: ED HPI HPI - GI History of Present Illness Chief Complaint: Constipation Detail of Chief Complaint: Constipation Informant: patient Narrative Narrative: Patient presents to the emergency department complaint of constipation. Patient states he has not had a good bowel movement in 5 days. It is not unusual for him to have constipation issues but this is the worst it has been. He denies any abdominal pain. He said no fever. He said no vomiting. He states that he try to use some Vaseline around his anus today and it but did not have much in the way of results. He denies any change in his diet. Does not take narcotic pain medications. [facility] Medical History (Updated 02/19/25 @ 17:[address] Annia Camara DO) Loss of hearing Wears glasses Cancer Gout Thyroid disease Bladder disease High cholesterol Shortness of breath on exertion Former smoker History of echocardiogram Cardiology follow-up encounter History of atrial fibrillation HTN (hypertension) Hypothyroid Parkinson disease Home Medications ???Medication ???Instructions ???Recorded ???Last Taken ???Type amlodipine 10 mg tablet 10 tab PO DAILY blood pressure 03/0610/19/23 History carbidopa 25 mg-levodopa 100 mg 1 tab PO TID parkinsons 04/19/22 0 10/19/23 History tablet levothyroxine 50 mcg tablet 50 mcg PO DAILY thyroid 04/19/22 0 10/19/23 History triamterene 75 1 tab PO DAILY blood pressure 03/06 Unknown History mg-hydrochlorothiazi de 50 mg tablet allopurinol 100 mg tablet 100 mg PO DAILYCM 60 days #60 tabs 10/21/23 Unknown Rx lisinopril 5 mg tablet 5 mg PO DAILY 60 days #60 tabs 04/08 Unknown Rx apixaban 5 mg tablet (Eliquis) 2.5 mg (1/2 x 5 mg) PO BID 60 days 02/25/24 03/16/24 Rx #120 tabs ciprofloxacin HCl 500 mg tablet 500 mg PO BID #10 tabs 03/20/24 Un known Rx finasteride 5 mg tablet (Proscar) 5 mg PO DAILY #90 tabs 03/20/24 U nknown Rx tamsulosin 0.4 mg capsule (Flomax) 0.4 mg PO DAILY #90 caps 4 Unknown Rx Allergy/AdvReac Type Severity Reaction Status Date / Time No Known Allergies Allergy Verified 02/19/25 15:24 Surgical History Status post laparoscopic cholecystectomy Social History Smoking Status: Former smoker ROS ROS ED Review of Systems ROS Unobtainable: other Constitutional Constitutional ED: Reports lethargy; Denies chills, fever(s), sweats or weight loss Eyes Eyes: Denies blurry vision, change in vision or diplopia ENT ENT ED: Denies rhinorrhea or sore throat Cardiovascular Cardiovascular: Denies chest pain, orthopnea or racing heartbeat Respiratory/Chest Respiratory/Chest: Denies cough, dyspnea, dyspnea on exertion, orthopnea or sputum Gastrointestinal Gastrointestinal: Reports constipation; Denies abdominal pain, diarrhea, nausea or vomiting Genitourinary Genitourinary ED: Denies dysuria, hematuria or urinary frequency Musculoskeletal Musculoskeletal: Denies arthralgias, back pain, myalgias or neck pain Integumentary Denies abscess, Abrasions or rash Neurologic Neurologic: Denies headache(s) or weakness Psychiatric Psychiatric: Denies anxiety, depression or suicidal thoughts Endocrine Endocrinology: Denies polydipsia, polyphagia or polyuria Hematologic/Lymphati c Hematologic/Lymphati c: Denies easy bleeding, easy bruising or lymphadenopathy Allergic/Immunologic Allergic/Immunologic ED: Denies mouth swelling, tongue swelling or urticaria EXAM Physical Exam Const Vital Signs: 02/19/25 15:27 02/19/25 17:23 Temperature 98.8 F Temperature Source Oral Pulse Rate 88 80 Respiratory Rate 18 15 Blood Pressure 153/83 H Blood Pressure Mean 106 Pulse Ox 96 97 Oxygen Delivery Method Room Air Room Air Positive well nourished and well developed General Appearance ED: well developed and NAD HEENT Reports TM's clear and moist mucous membranes normocephalic and atraumatic; Negative for trauma or tenderness Tympanic Membrane ED: Yes TM's clear Eyes PERRL and EOMs intact bilaterally General Eye ED: Negative for pale conjunctiva or scleral icterus Neck no lymphadenopathy, supple and no JVD General: Negative for tenderness Chest Wall inspection of chest normal and palpation of chest normal Chest: Negative for tenderness Resp normal respiratory effort and clear to auscultation bilaterally Effort and Inspection: Negative for respiratory distress or pain (more content not included)... Normal [facility] CNOVon 01-13-2025 CNOV Office Visit (UCWSTR) TRACI DELA CRUZ JR. ([id number]) 1950 M Date Time Provider Department 01/13/25 9:00 AM ANDERSON HINTON [facility] During your visit today, we recorded the following information about you: Temperature Pulse Respiration Blood pressure 97.9 degrees 74/minute 16/minute 128/64 Weight 85.3 kg Anderson Hinton APRN.MANAGER OF SECURITY 01/13/2025 9:09 AM Signed This note was created using Cloudscalingriter. Subjective Traci Dela Cruz Jr. is a 74 year old male. [...] PCP. - PREDNISONE 20 MG TABLET Anderson Hinton APRN.MANAGER OF SECURITY Allergies As of Date: 01/13/2025 Noted Allergy Reaction ABILIFY (ARIPIPRAZOLE) 12/09/2024 15 - Contraindication-Med ical Mai* Comments: People with Parkinson's disease should not take this or other antipsychotics except Nuplazid, Seroquel, and Clozaril can be prescribed. COMPAZINE (PROCHLORPERAZINE) 12/09/2024 15 - Contraindication-Med ical Mai* Comments: This should not be given to people with Parkinson's disease. If not otherwise contraindicated, Zofran should be given instead. HALDOL (HALOPERIDOL) 12/09/2024 15 - Contraindication-Med ical Mai* Comments: .ewhal PHENERGAN (PROMETHAZINE) 12/09/2024 15 - Contraindication-Med ical Mai* Comments: This should not be given to people with Parkinson's disease. If not otherwise contraindicated, Zofran should be given instead. REGLAN (METOCLOPRAMIDE) 12/09/2024 15 - Contraindication-Med ical Mai* Comments: This should not be given to people with Parkinson's disease. If not otherwise contraindicated and for nausea, Zofran should be given instead. Date Reviewed: 01/13/2025 Reviewed by: Anderson Hinton APRN.MANAGER OF SECURITY - Fully Assessed Reason for Visit: Pain [...] REM sleep behavior disorder [G47.52] 08/21/2019 Hypothyroidism, acquir (more content not included)... Normal [facility] CNOVon 12-10-2024 CNOV Office Visit (FAMPWS) TRACI DELA CRUZ JR. ([id number]) 1950 M Date Time Provider Department 12/10/24 9:20 AM [facility] During your visit today, we recorded the following information about you: Temperature Pulse Blood pressure Weight 97.3 degrees 64/minute 128/66 84.8 kg Daniella Samuels APRN.MANAGER OF SECURITY 12/10/2024 10:01 AM Signed This is a 74 year old male who presents today with: Patient presents with: 6 Month Exam HISTORY OF PRESENT ILLNESS: Traci Dela Cruz Jr. is a 74 year old male. [...] tablet by mouth once daily. No current facility-administere d medications for this visit. FAMILY HISTORY Problem [...] 332.0, ICD10: G20.A1 (primary diagnosis) Follows with neur (more content not included)... Normal [facility] TSH SerPl-aCncon 12-10-2024 TSH Qn 2.670 m[IU]/L Normal 0.270-4.200 [facility] Comment on above: Order Comment: Speci men Type: BLOOD SPECIMENOrdering Facility: [facility] Address: [address] [place] [address] Performed By: #### 3 016-3 ####[facility] LABORATORYCLIA [id number] [place] [address] [place] CNOVon 12-09-2024 CNOV Office Visit (NRMDN) TRACI DELA CRUZ JR. ([id number]) 1950 M Date Time Provider Department 12/09/24 10:00 AM SADE SHINE During your visit today, we recorded the following information about you: Pulse Blood pressure Weight Height 67/minute 134/71 85.3 kg 1.803 m Sade Shine APRN.MANAGER OF SECURITY 12/09/2024 11:38 AM Signed [facility] - FOLLOW UP EVALUATION Primary Movement Disorders Neurologist: Andrez Shine MD Primary Movement Disorders TORI: ALIVIA Franco APRN.MANAGER OF SECURITY [address] [facility] [address] Dear Daniella Samuels APRN.CNP: I had the pleasure of seeing Mr. Dela Cruz for follow-up today. 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 Movement Disorders Medications Schedule - as of [...] structured exercise. ALLERGIES Allergen Reactions Abilify [Aripiprazo* Contraindication-Med ical Surgical People with Parkinson's disease should not take this or other antipsychotics except Nuplazid, Seroquel, and Clozaril can be prescribed. Compazine [Prochlor* Contraindication-Med ical Surgical This should not be given to people with Parkinson's disease. If not otherwise contraindicated, Zofran should be given instead. Haldol [Haloperidol] Contraindication-Med ical Surgical .ewhal Phenergan [Prometha* Contraindication-Med ical Surgical This should not be given to people with Parkinson's disease. If not otherwise contraindicated, Zofran should be given instead. Reglan [Metoclopram* Contraindication-Med ical Surgical This should not be given to people with Parkinson's disease. If not otherwise contraindicated and for nausea, Zofran should be given instead. Current Outpatient Medications Medication Sig carbi (more content not included)... Normal [facility] CNOVon 09-30-2024 CNOV Office Visit (FAMPWS) TRACI DELA CRUZ JR. ([id number]) 1950 M Date Time Provider Department 09/30/24 11:00 AM DANIELLA SAMUELS During your visit today, we recorded the following information about you: Temperature Pulse Respiration Blood pressure 97.4 degrees 75/minute 14/minute 118/64 Weight 87.4 kg Daniella Samuels, SHOP SERVICE TECHNICIAN.[facility] 09/30/2024 11:18 AM Signed This is a 74 year old male who presents today with: No chief complaint on file. HISTORY OF PRESENT ILLNESS: Traci Dela Cruz Jr. is a 74 year old male. [...] mouth two times a day. No current facility-administere d medications for this visit. FAMILY HISTORY Problem [...] Allergies) Date Reviewed: 09/30/2024 Reviewed by: Daniella Samuels APRN.CNP - Fully Assessed Primary Visit Diagnosis:Acute i (more content not included)... Normal [facility]-20[facility] TRACI DELA CRUZ JR. ([id number]) 1950 M Date Time Provider Department 09/24/24 [facility] During your visit today, we recorded the following information about you: Daniella Samuels APRN.CNP 09/24/2024 8:10 AM Signed Please let patient [...] information listed below given. Pt verbalizes understanding. Chidi Stark LPN Allergies As of Date: 09/24/2024 (No Known Allergies) Date Reviewed: 08/29/2024 Reviewed by: Milagros Murrell MA - Fully Assessed Reason for Visit: Results [95] Visit Diagnosis:Hypothyroi dism, acquired [E03.9] Order(s):levothyroxi ne (SYNTHROID) 100 mcg tabletTake 1 tablet by mouth once daily. Take on empty stomach. For Thyroid.Disp: 90 tabletRfl: 0 THYROID STIMULATING HORMONE [SQTSH] Order #: [id number] FUTURE Prescriptions as of 09/24/2024 - levothyroxine [...] empty stomach. For Thyroid. Encounter Status:Closed by CHIDI STARK on 09/24/24 Normal [facility] TSH SerPl-aCncon 09-23-2024 TSH Qn 5.040 m[IU]/L High 0.270-4.200 [facility] Comment on above: Order Comment: Speci men Type: BLOOD SPECIMENOrdering Facility: [facility] Address: [address] [place] [address] [place] [address] Performed By: #### 3 016-3 ####[facility] LABCLIA [id number] [facility] [id number] [place] [address] [place] CNOVon 08-29-2024 CNOV Office Visit (CARDMM) TRACI DELA CRUZ JR. ([id number]) 1950 M Date Time Provider Department 08/29/24 10:40 AM YANIRA REDD During your visit today, we recorded the following information about you: Pulse Blood pressure Weight Height 68/minute 118/60 85 kg 1.803 m Yanira Redd MD 08/29/2024 12:41 PM Signed [facility] SECTION OF REGIONAL CARDIOLOGY OUTPATIENT VISIT DATE 08/29/24 OUTPATIENT VISIT TYPE ESTABLISHED PRIMARY CARE PHYSICIAN: Celso Hunt [address] [place] [address] HISTORY OF PRESENT ILLNESS: Mr. Dela Cruz is a 73 year old male, history of stroke, hypertension, Parkinson's, TIAs , presents for follow-up visit. He presented to [facility] on 10/19/2023 with blurred vision that started [...] no evidence of large vessel occlusion and absentee-shawnee of Peng. TTE 10/19/2023: EF 60%, grade [...] 118/60 Pulse 68 Ht 180.3 cm (5' 11") Wt 85 kg (187 lb 6.3 oz) [...] fibrillation (HCC) - ICD9: 427.31, ICD10: I48.91 [id number] 5. He reports heart rates in the [...] have this testing done. - He is declinin (more content not included)... Normal [facility] Absolute lymphocyte countOrd ered By: Annia Camara on 02-25-2024 Lymphocytes Auto (Unsp spec) [#/Vol] 1.13 10*3/uL 0.83-4.51 [facility] Automated lymphocyte count a s percentage of total leukocytesOrdered By: Annia Camara on 02-25-2024 Lymphocytes/100 WBC Auto (Unsp spec) 16.4 % 19-41 [facility] Basophil percentageOrdered B y: Annia Camara on 02-25-2024 Basophil percentage 0-5 SEEN /hpf 0-5 [facility] Basophils/100 WBC (Bld) 1.3 % 0-1 [facility] Chloride [Moles/Vol] 100 mmol/L 98-107 [facility] Eosinophils/100 WBC (Bld) 0.4 % 0-5 [facility] Glucose [Mass/Vol] 100 mg/dL 74-106 [facility] Comment on above: Fasting Glucose resu lt from 100 to 125 mg/dL suggests IMPAIRED HOMEOSTASIS per A.D.A. criteria. Hemoglobin (Bld) [Mass/Vol] 14.5 g/dL 13.0-16.5 [facility] Monocytes/100 WBC (Bld) 9.3 % 0-10 [facility] Neutrophils (Bld) [#/Vol] 5.0 10*3/uL 2.0-7.7 [facility] Neutrophils/100 WBC (Bld) 72.5 % 47-70 [facility] Potassium [Moles/Vol] 3.3 mmol/L 3.5-5.1 [facility] Sodium [Moles/Vol] 138 mmol/L 136-145 [facility] WBC (Bld) [#/Vol] 6.9 10*3/uL 4.4-11.0 [facility] Bilirubin Test strip Ql (U)O rdered By: Annia Camara on 02-25-2024 Bilirubin Ql (U) Negative Negative [facility] Determination of erythrocyte mean corpuscular volume (MCV)Ordered By: Annia Camara on 02-25-2024 MCV (RBC) [Entitic vol] 82.2 fL 80-94 [facility] Erythrocyte distribution wid th ratioOrdered By: Annia Camara on 02-25-2024 Erythrocyte distribution width (RBC) [Ratio] 12.9 % 11.6-14.6 [facility] Erythrocyte distribution wid th standard deviationOrdered By: Annia Camara on 02-25-2024 Erythrocyte distribution width (RBC) [Entitic vol] 38.4 fL 35.1-43.9 [facility] Hematocrit Auto (Bld) [Volum e fraction]Ordered By: Annia Camara on 02-25-2024 Hematocrit (Bld) [Volume fraction] 43.9 % 40-54 [facility] Immature granulocytes/100 WB C Auto (Bld)Ordered By: Annia Camara on 02-25-2024 Immature granulocytes/100 WBC (Bld) 0.100 % 0.0-0.9 [facility] Comment on above: IG% - Immature Granu locytes (promyelocytes, myelocytes and metamyelocytes) > 1% indicates that a LEFT SHIFT is Present. Ketones Test strip Ql (U)Ord ered By: Annia Camara on 02-25-2024 Ketones Ql (U) Negative Negative [facility] Laboratory - Chemistry and C hemistry - challengeOrdered By: Annia Camara on 02-25-2024 CO2 [Moles/Vol] 32.0 mmol/L 21.0-32.0 [facility] Urea nitrogen/Creatinine [Mass ratio] 16.0 mg/mg 10-20 [facility] Laboratory - Hematology and Cell countsOrdered By: Annia Camara on 02-25-2024 MCH (RBC) [Entitic mass] 27.2 pg 27.0-32.0 [facility] MCHC (RBC) [Mass/Vol] 33.0 g/dL 32-36 [facility] Nucleated RBC/100 WBC (Bld) [Ratio] 0 % 0-5 [facility] Platelet mean volume (Bld) [Entitic vol] 10.0 fL 6.2-12.0 [facility] Platelets (Bld) [#/Vol] 200 10*3/uL 150-450 [facility] Mucus LM Ql (Urine sed)Order ed By: Annia Camara on 02-25-2024 Mucus Ql (Urine sed) 0 SEEN /hpf [facility] Nitrite Test strip Ql (U)Ord ered By: Annia Camara on 02-25-2024 Nitrite Ql (U) Positive Negative [facility] No Panel InformationOrdered By: Annia Camara on 02-25-2024 Urine RBC > 100 SEEN /hpf 0-5 [facility] Estimated GFR (MDRD) Amer 69 mL/min >60 [facility] Comment on above: GFR Calc Estimated GFR (MDRD) Non-Af Amer 57 mL/min >60 [facility] Comment on above: Non- GFR Calc Protein Test strip Ql (U)Ord ered By: Annia Camara on 02-25-2024 Protein Ql (U) 30 mg/dl Negative [facility] RBC Auto (Bld) [#/Vol]Ordere d By: Annia Camara on 02-25-2024 RBC (Bld) [#/Vol] 5.34 10*6/uL 4.6-6.2 [place] [facility] [place] [place] Serum or plasma calcium lexx urement (mass/volume)Ordered By: Annia Camara on 02-25-2024 Calcium [Mass/Vol] 9.2 mg/dL 8.5-10.1 oste r [facility] [place] [place] Serum or plasma creatinine m easurement (mass/volume)Ordered By: Annia Camara on 02-25-2024 Creatinine [Mass/Vol] 1.31 mg/dL 0.70-1.30 [facility] Comment on above: The validity of the calculated GFR & GFRAA in patients over 70 years has not been determined. Clinical correlation is essential. Serum or plasma urea nitroge n measurement (mass/volume)Ordered By: Annia Camara on 02-25-2024 Urea nitrogen [Mass/Vol] 21 mg/dL 7-18 [facility] Squamous epithelial cells de tection in urine sediment by light microscopyOrdered By: Annia Camara on 02-25-2024 Epithelial cells.squamous LM Ql (Urine sed) 0 SEEN /hpf 0-5 [facility] Thin prep Papanicolaou smear with manual screeningOrdered By: Annia Camara on 02-25-2024 Thin prep Papanicolaou smear with manual screening 6 5-15 [facility] Urine blood detectionOrdered By: Annia Camara on 02-25-2024 RBC Ql (U) 250 /ul Negative [facility] Urine clarityOrdered By: Ashly Camara on 02-25-2024 Clarity (U) Cloudy Clear [facility] Urine color determinationOrd ered By: Annia Camara on 02-25-2024 Color (U) Red Yellow [facility] Urine glucose detectionOrder ed By: Annia Camara on 02-25-2024 Glucose Ql (U) Normal mg/dl Normal [facility] Urine leukocyte esterase det ection by dipstickOrdered By: Annia Camara on 02-25-2024 Leukocyte esterase Test strip Ql (U) 25 /ul Negative [facility] Urine pHOrdered By: Annia Colbert gur on 02-25-2024 pH (U) 7.0 [pH] 5.0 - 8.0 [facility] Urine sediment bacteria coun t by microscopy (number/high power field)Ordered By: Annia Camara on 02-25-2024 Bacteria LM.HPF (Urine sed) [#/Area] 0 /[HPF] None Seen [facility] Urine specific gravity measu rementOrdered By: Annia Camara on 02-25-2024 Specific gravity (U) [Rel density] 1.005 1.002-1.030 [facility] Urine urobilinogen measureme ntOrdered By: Annia Camara on 02-25-2024 Urobilinogen Ql (U) Normal mg/dl Normal [facility] PHOSPHORUS INORGANICon 12-05 Phosphate [Mass/Vol] 3.2 mg/dL 2.7 - 4 .8 mg/dL [facility] ECG COMPLETEon 11-21-2023 Atrial Rate 78 BPM [facility] Calculated P Nabb [address] [facility] Calculated R Nabb [address] [facility] Calculated T Nabb [address] [facility] P-R Interval 126 ms [facility] QRS Duration 90 ms [facility] QT Interval 358 ms [facility] QTC Calculation (Bazett) 408 ms [facility] Ventricular Rate 78 BPM [facility] Basophil percentageOrdered B y: Bryant Loredo on 10-21-2023 Chloride [Moles/Vol] 104 mmol/L 98-107 [facility] Glucose [Mass/Vol] 89 mg/dL 74-106 [facility] Potassium [Moles/Vol] 3.1 mmol/L 3.5-5.1 [facility] Sodium [Moles/Vol] 138 mmol/L 136-145 [facility] Laboratory - Chemistry and C hemistry - challengeOrdered By: Bryant Loredo on 10-21-2023 CO2 [Moles/Vol] 27.0 mmol/L 21.0-32.0 [facility] Urea nitrogen/Creatinine [Mass ratio] 20.4 mg/mg 08-04 [facility] No Panel InformationOrdered By: Bryant Loredo on 10-21-2023 Estimated Creatinine Clearance Calc 66.00 ml/min [facility] Estimated GFR (MDRD) Amer 90 mL/min >60 [facility] Comment on above: GFR Calc Estimated GFR (MDRD) Non-Af Amer 75 mL/min >60 [facility] Comment on above: Non- GFR Calc Serum or plasma calcium lexx urement (mass/volume)Ordered By: Bryant Loredo on 10-21-2023 Calcium [Mass/Vol] 8.7 mg/dL 8.5-10.1 [facility] Serum or plasma creatinine m easurement (mass/volume)Ordered By: Bryant Loredo on 10-21-2023 Creatinine [Mass/Vol] 1.03 mg/dL 0.70-1.30 [facility] Comment on above: The validity of the calculated GFR & GFRAA in patients over 70 years has not been determined. Clinical correlation is essential. Serum or plasma urea nitroge n measurement (mass/volume)Ordered By: Bryant Loredo on 10-21-2023 Urea nitrogen [Mass/Vol] 21 mg/dL 7-18 [facility] Thin prep Papanicolaou smear with manual screeningOrdered By: Bryant Loredo on 10-21-2023 Thin prep Papanicolaou smear with manual screening 7 5-15 [facility] Absolute lymphocyte countOrd ered By: Jonah Calix on 10-20-2023 Lymphocytes Auto (Unsp spec) [#/Vol] 1.54 10*3/uL 0.83-4.51 [facility] Basophil percentageOrdered B y: Jonah Calix on 10-20-2023 Basophil percentage 2.4 mg/dL 2.5-4.9 [facility] Basophils/100 WBC (Bld) 0.8 % 0-1 [facility] Cholesterol [Mass/Vol] 118 mg/dL <200 [facility] Comment on above: <200 mg/dL Desirable 200-240 mg/dL Borderline >240 mg/dL High Risk Eosinophils/100 WBC (Bld) 1.1 % 0-5 [facility] Neutrophils (Bld) [#/Vol] 6.3 10*3/uL 2.0-7.7 [facility] Neutrophils/100 WBC (Bld) 69.7 % 47-70 [facility] Triglyceride [Mass/Vol] 55 mg/dL <199 [facility] Comment on above: The drugs N-Acetylcy steine and Metamizole may falsely depress this assay.Serum Triglycerides Reference Interval Normal <150 mg/dL Borderline high 150 - 199 mg/dL High 200 - 499 mg/dL Very High > or = 500 mg/dL WBC (Bld) [#/Vol] 9.1 10*3/uL 4.4-11.0 [facility] Blood erythrocytes count (nu mber/volume)Ordered By: Jonah Calix on 10-20-2023 RBC (Bld) [#/Vol] 5.01 10*6/uL 4.6-6.2 [facility] Blood hemoglobin measurement (mass/volume)Ordered By: Jonah Calix on 10-20-2023 Hemoglobin (Bld) [Mass/Vol] 13.7 g/dL 13.0-16.5 [facility] Blood lymphocytes/100 leukoc ytesOrdered By: Jonah Calix on 10-20-2023 Lymphocytes/100 WBC (Bld) 17.0 % 19-41 [facility] Blood monocytes/100 leukocyt esOrdered By: Jonah Calix on 10-20-2023 Monocytes/100 WBC (Bld) 11.0 % 0-10 [facility] Blood platelet mean volumeOr dered By: Jonah Calix on 10-20-2023 Platelet mean volume (Bld) [Entitic vol] 10.6 fL 6.2-12.0 [facility] Determination of erythrocyte mean corpuscular volume (MCV)Ordered By: Jonah Calix on 10-20-2023 MCV (RBC) [Entitic vol] 83.0 fL 80-94 [facility] Hematocrit Auto (Bld) [Volum e fraction]Ordered By: Jonah Calix on 10-20-2023 Hematocrit (Bld) [Volume fraction] 41.6 % 40-54 [facility] Laboratory - Chemistry and C hemistry - challengeOrdered By: Jonah Calix on 10-20-2023 Magnesium [Mass/Vol] 1.9 mg/dL 1.6-2.6 [facility] Laboratory - Hematology and Cell countsOrdered By: Jonah Calix on 10-20-2023 Erythrocyte distribution width (RBC) [Entitic vol] 39.8 fL 35.1-43.9 [facility] Erythrocyte distribution width (RBC) [Ratio] 13.2 % 11.6-14.6 [facility] Immature granulocytes/100 WBC (Bld) 0.400 % 0.0-0.9 [facility] Comment on above: IG% - Immature Granu locytes (promyelocytes, myelocytes and metamyelocytes) > 1% indicates that a LEFT SHIFT is Present. MCH (RBC) [Entitic mass] 27.3 pg 27.0-32.0 [facility] Nucleated RBC/100 WBC (Bld) [Ratio] 0 % 0-5 [facility] MCHC Auto (RBC) [Mass/Vol]Or dered By: Jonah Calix on 10-20-2023 MCHC (RBC) [Mass/Vol] 32.9 g/dL 32-36 [facility] Platelets bldOrdered By: Sloan Calix on 10-20-2023 Platelets (Bld) [#/Vol] 179 10*3/uL 150-450 [facility] Serum or plasma cholesterol in HDL measurement (mass/volume)Ordered By: Jonah Calix on 10-20-2023 Cholesterol in HDL [Mass/Vol] 53 mg/dL >40 [facility] Comment on above: The drugs N-Acetylcy steine and Metamizole may falsely depress this assay. Reference Range HDL <40 mg/dL Low HDL Cholesterol HDL >or= 60 mg/dL High HDL Cholesterol Serum or plasma cholesterol in VLDL measurement (mass/volume)Ordered By: Jonah aClix on 10-20-2023 Cholesterol in VLDL [Mass/Vol] 11 mg/dL 5-40 [facility] Serum or plasma low density lipoprotein (LDL) cholesterol measurement (mass/volume)Ordered By: Jonah Calix on 10-20-2023 Cholesterol in LDL [Mass/Vol] 54 mg/dL 0-130 [facility] Serum or plasma uric acid me asurement (mass/volume)Ordered By: Jonah Calix on 10-20-2023 Urate [Mass/Vol] 7.8 mg/dL 3.5-7.2 [facility] Comment on above: The drugs N-Acetylcy steine and Metamizole may falsely depress this assay. Absolute lymphocyte countOrd ered By: Tala Parker on 10-19-2023 Lymphocytes Auto (Unsp spec) [#/Vol] 1.69 10*3/uL 0.83-4.51 [facility] Basophil percentageOrdered B y: Tala Parker on 10-19-2023 Basophil percentage 10-25 SEEN /hpf 0-5 [facility] Basophils/100 WBC (Bld) 0.9 % 0-1 [facility] Chloride [Moles/Vol] 103 mmol/L 98-107 [facility] Eosinophils/100 WBC (Bld) 0.8 % 0-5 [facility] Glucose [Mass/Vol] 112 mg/dL 74-106 [facility] Comment on above: Fasting Glucose resu lt from 100 to 125 mg/dL suggests IMPAIRED HOMEOSTASIS per A.D.A. criteria. Neutrophils (Bld) [#/Vol] 10.1 10*3/uL 2.0-7.7 [facility] Neutrophils/100 WBC (Bld) 76.2 % 47-70 [facility] Potassium [Moles/Vol] 3.5 mmol/L 3.5-5.1 [facility] Sodium [Moles/Vol] 141 mmol/L 136-145 [facility] WBC (Bld) [#/Vol] 13.3 10*3/uL 4.4-11.0 [facility] Bilirubin Test strip Ql (U)O rdered By: Tala Parker on 10-19-2023 Bilirubin Ql (U) Negative Negative [facility] Blood erythrocytes count (nu mber/volume)Ordered By: Tala Parker on 10-19-2023 RBC (Bld) [#/Vol] 5.55 10*6/uL 4.6-6.2 [facility] Blood hemoglobin measurement (mass/volume)Ordered By: Tala Parker on 10-19-2023 Hemoglobin (Bld) [Mass/Vol] 15.4 g/dL 13.0-16.5 [facility] Blood lymphocytes/100 leukoc ytesOrdered By: Tala Parker on 10-19-2023 Lymphocytes/100 WBC (Bld) 12.7 % 19-41 [facility] Blood monocytes/100 leukocyt esOrdered By: Tala Parker on 10-19-2023 Monocytes/100 WBC (Bld) 9.0 % 0-10 [facility] Blood platelet mean volumeOr dered By: Tala Parker on 10-19-2023 Platelet mean volume (Bld) [Entitic vol] 11.0 fL 6.2-12.0 [facility] Determination of erythrocyte mean corpuscular volume (MCV)Ordered By: Tala Parker on 10-19-2023 MCV (RBC) [Entitic vol] 82.7 fL 80-94 [facility] Hematocrit Auto (Bld) [Volum e fraction]Ordered By: Tala Parker on 01-04-2024 Hematocrit (Bld) [Volume fraction] 45.9 % 40-54 [facility] INR in Blood by Coagulation assayOrdered By: Tala Parker on 10-19-2023 INR Coag (Bld) [Relative time] 1.0 {INR} [facility] Ketones Test strip Ql (U)Ord ered By: Tala Parker on 10-19-2023 Ketones Ql (U) Negative Negative [facility] Laboratory - Chemistry and C hemistry - challengeOrdered By: Tala Parker on 10-19-2023 CO2 [Moles/Vol] 29.0 mmol/L 21.0-32.0 [facility] Urea nitrogen/Creatinine [Mass ratio] 20.0 mg/mg 10-20 [facility] Laboratory - CoagulationOrde red By: Tala Parker on 10-19-2023 aPTT Coag (Bld) [Time] 28.1 s 24.1-36.2 [facility] PT Coag (PPP) [Time] 13.0 s 11.7-14.9 [facility] Laboratory - Hematology and Cell countsOrdered By: Tala Parker on 10-19-2023 Erythrocyte distribution width (RBC) [Entitic vol] 39.3 fL 35.1-43.9 [facility] Erythrocyte distribution width (RBC) [Ratio] 13.2 % 11.6-14.6 [facility] Immature granulocytes/100 WBC (Bld) 0.400 % 0.0-0.9 [facility] Comment on above: IG% - Immature Granu locytes (promyelocytes, myelocytes and metamyelocytes) > 1% indicates that a LEFT SHIFT is Present. MCH (RBC) [Entitic mass] 27.7 pg 27.0-32.0 [facility] Nucleated RBC/100 WBC (Bld) [Ratio] 0 % 0-5 [facility] MCHC Auto (RBC) [Mass/Vol]Or dered By: Tala Parker on 10-19-2023 MCHC (RBC) [Mass/Vol] 33.6 g/dL 32-36 [facility] Mucus LM Ql (Urine sed)Order ed By: Tala Parker on 10-19-2023 Mucus Ql (Urine sed) 0 SEEN /hpf [facility] Nitrite Test strip Ql (U)Ord ered By: Tala Parker on 10-19-2023 Nitrite Ql (U) Negative Negative [facility] No Panel InformationOrdered By: Jonah Calix on 10-19-2023 Troponin I High Sensitivity 11 pg/mL 3.0-78.0 [facility] Comment on above: Please Note: [place] Units and Gender Specific Reference Ranges. For more information see Policy Stat Procedure [place] High Sensitivity Troponin (TNIH) and attachments. D-Dimer Quantitative (PE/DVT) 0.44 FEU/ug/m 0.27-0.49 [facility] Comment on above: NORMAL D-Dimer level (<0.50) indicates no DVT or PE. Thyroid Stimulating Hormone (TSH) 2.88 uIU/mL 0.358-3.74 [facility] No Panel InformationOrdered By: Tala Parker on 10-19-2023 Estimated Creatinine Clearance Calc 48.56 ml/min [facility] Estimated GFR (MDRD) Amer 64 mL/min >60 [facility] Comment on above: GFR Calc Estimated GFR (MDRD) Non-Af Amer 52 mL/min >60 [facility] Comment on above: Non- GFR Calc Platelets bldOrdered By: Guillermina Parker on 10-19-2023 Platelets (Bld) [#/Vol] 227 10*3/uL 150-450 [facility] Protein Test strip Ql (U)Ord ered By: Tala Parker on 10-19-2023 Protein Ql (U) Negative Negative [facility] Serum or plasma calcium lexx urement (mass/volume)Ordered By: Tala Parker on 10-19-2023 Calcium [Mass/Vol] 9.4 mg/dL 8.5-10.1 [facility] Serum or plasma creatinine m easurement (mass/volume)Ordered By: Tala Parker on 10-19-2023 Creatinine [Mass/Vol] 1.40 mg/dL 0.70-1.30 [facility] Comment on above: The validity of the calculated GFR & GFRAA in patients over 70 years has not been determined. Clinical correlation is essential. Serum or plasma urea nitroge n measurement (mass/volume)Ordered By: Tala Parker on 10-19-2023 Urea nitrogen [Mass/Vol] 28 mg/dL 7-18 [facility] Squamous epithelial cells de tection in urine sediment by light microscopyOrdered By: Tala Parker on 10-19-2023 Epithelial cells.squamous LM Ql (Urine sed) 0 SEEN /hpf 0-5 [facility] Thin prep Papanicolaou smear with manual screeningOrdered By: Tala Parker on 10-19-2023 Thin prep Papanicolaou smear with manual screening 9 5-15 [facility] Urine blood detectionOrdered By: Tala Parker on 10-19-2023 RBC Ql (U) 50 /ul Negative [facility] RBC Ql (U) 10-25 SEEN /hpf 0-5 [facility] Urine clarityOrdered By: Guillermina Parker on 10-19-2023 Clarity (U) Clear Clear [facility] Urine color determinationOrd ered By: Tala Parker on 10-19-2023 Color (U) YELLOW Yellow [facility] Urine glucose detectionOrder ed By: Tala Parker on 10-19-2023 Glucose Ql (U) Normal mg/dl Normal [facility] Urine leukocyte esterase det ection by dipstickOrdered By: Tala Parker on 10-19-2023 Leukocyte esterase Test strip Ql (U) Negative Negative [facility] Urine pHOrdered By: Tala gomes on 10-19-2023 pH (U) 6.0 [pH] 5.0 - 8.0 [facility] Urine sediment bacteria coun t by microscopy (number/high power field)Ordered By: Tala Parker on 10-19-2023 Bacteria LM.HPF (Urine sed) [#/Area] 0 /[HPF] None Seen [facility] Urine specific gravity measu rementOrdered By: Tala Parker on 10-19-2023 Specific gravity (U) [Rel density] 1.020 1.002-1.030 [facility] Urobilinogen Auto test strip Ql (U)Ordered By: Tala Parker on 10-19-2023 Urobilinogen Ql (U) 1 mg/dl Normal [facility] CBC W Auto Differential pane l (Bld)on 02-14-2023 Basophils (Bld) [#/Vol] 0.14 10*3/uL High <0.11 k/uL [facility] Basophils/100 WBC (Bld) 1.7 % [facility] Differential cell count method Nom (Bld) Auto [facility] Eosinophils (Bld) [#/Vol] 0.20 10*3/uL <0.46 k/uL [facility] Eosinophils/100 WBC (Bld) 2.4 % [facility] Erythrocyte distribution width (RBC) [Ratio] 13.1 % 11.5 - 15.0 % [facility] Hematocrit (Bld) [Volume fraction] 46.5 % 39.0 - 51.0 % [facility] Hemoglobin (Bld) [Mass/Vol] 15.6 g/dL 13.0 - 17.0 g/dL [facility] Immature granulocytes (Bld) [#/Vol] <0.10 k/uL [facility] Immature granulocytes/100 WBC (Bld) 0.2 % [facility] Lymphocytes (Bld) [#/Vol] 2.32 10*3/uL 1.00 - 4.00 k/uL [facility] Lymphocytes/100 WBC (Bld) 28.0 % [facility] MCH (RBC) [Entitic mass] 27.9 pg 26. 0 - 34.0 pg [facility] MCHC (RBC) [Mass/Vol] 33.5 g/dL 30.5 - 36.0 g/dL [facility] MCV (RBC) [Entitic vol] 83.2 fL 80.0 - 100.0 fL [facility] Monocytes (Bld) [#/Vol] 0.90 10*3/uL High <0.87 k/uL [facility] Monocytes/100 WBC (Bld) 10.9 % [facility] Neutrophils (Bld) [#/Vol] 4.71 10*3/uL 1.45 - 7.50 k/uL [facility] Neutrophils/100 WBC (Bld) 56.8 % [facility] Nucleated RBC (Bld) [#/Vol] <0.01 k/uL [facility] Nucleated RBC/100 WBC (Bld) [Ratio] 0.0 /100 WBC [facility] Platelet mean volume (Bld) [Entitic vol] 10.9 fL 9.0 - 12.7 fL [facility] Platelets (Bld) [#/Vol] 220 10*3/uL 150 - 400 k/uL [facility] RBC (Bld) [#/Vol] 5.59 10*6/uL 4.20 - 6.0 0 m/uL [facility] WBC (Bld) [#/Vol] 8.29 10*3/uL 3.70 - 11. 00 k/uL [facility] Comprehensive metabolic 2000 panelon 02-14-2023 Albumin [Mass/Vol] 4.6 g/dL 3.9 - 4.9 g/dL [facility] ALP [Catalytic activity/Vol] 92 U/L 38 - 113 U/L [facility] ALT [Catalytic activity/Vol] 6 U/L Low 10 - 54 U/L [facility] Anion gap [Moles/Vol] 12 mmol/L 9 - 18 mmol/L [facility] AST [Catalytic activity/Vol] 23 U/L 14 - 40 U/L [facility] Bilirubin [Mass/Vol] 0.6 mg/dL 0.2 - 1 .3 mg/dL [facility] Calcium [Mass/Vol] 10.0 mg/dL 8.5 - 10. 2 mg/dL [facility] Chloride [Moles/Vol] 98 mmol/L 97 - 10 5 mmol/L [facility] CO2 [Moles/Vol] 28 mmol/L 22 - 30 mmol/L [facility] Creatinine [Mass/Vol] 1.17 mg/dL 0.73 - 1.22 mg/dL [facility] Estimated Glomerular Filtration Rate 65 mL/min/1.73m >=60 mL/min/1.73m [facility] Glucose [Mass/Vol] 93 mg/dL 74 - 99 mg/dL [facility] Potassium [Moles/Vol] 4.0 mmol/L 3.7 - 5.1 mmol/L [facility] Protein [Mass/Vol] 7.9 g/dL 6.3 - 8.0 g/dL [facility] Sodium [Moles/Vol] 138 mmol/L 136 - 144 mmol/L [facility] Urea nitrogen [Mass/Vol] 21 mg/dL 9 - 24 mg/d L [facility] Lipid 1996 panelon Cholesterol [Mass/Vol] 163 mg/dL <200 mg/dL [facility] Cholesterol in HDL [Mass/Vol] 43 mg/dL >39 mg/dL [facility] Cholesterol in LDL [Mass/Vol] 92 mg/dL <100 mg/dL [facility] Cholesterol in LDL/Cholesterol in HDL [Mass ratio] 2.14 {ratio} <2.54 [facility] Cholesterol in VLDL [Mass/Vol] 28 mg/dL <30 mg/dL [facility] Cholesterol non HDL [Mass/Vol] 120 mg/dL <130 mg/dL [facility] Cholesterol.total/Choles terol in HDL [Mass ratio] 3.79 {ratio} <5.10 [facility] Fasting Time 12 hrs [facility] Triglyceride [Mass/Vol] 138 mg/dL <150 mg/dL [facility] TSH BLDon 02-14-2023 TSH Qn 3.620 m[IU]/L 0.270 - 4.200 mIU/L [facility] Absolute lymphocyte counton 09-25-2022 Lymphocytes Auto (Unsp spec) [#/Vol] 1.78 10*3/uL 0.83-4.51 [facility] Work Phone: Basophil percentageon 2021 Basophils/100 WBC (Bld) 0.7 % 0-1 [facility] Work Phone: Bilirubin [Mass/Vol] 0.70 mg/dL 0.20-1.00 [facility] Work Phone: Comment on above: For patients on eltr ombopag therapy, use of Dimension [place] TBIL is not recommended. Chloride [Moles/Vol] 101 mmol/L 98-107 [facility] Work Phone: Eosinophils/100 WBC (Bld) 0.6 % 0-5 [facility] Work Phone: Glucose [Mass/Vol] 134 mg/dL 74-106 [facility] Work Phone: Comment on above: Fasting Glucose resu lt greater than or equal to 126 mg/dL suggests DIABETES MELLITUS per A.D.A. criteria. Neutrophils (Bld) [#/Vol] 10.5 10*3/uL 2.0-7.7 [facility] Work Phone: Neutrophils/100 WBC (Bld) 78.1 % 47-70 [facility] Work Phone: Potassium [Moles/Vol] 3.6 mmol/L 3.5-5.1 [facility] Work Phone: Protein [Mass/Vol] 7.7 g/dL 6.4-8.2 [facility] Work Phone: Sodium [Moles/Vol] 137 mmol/L 136-145 [facility] Work Phone: WBC (Bld) [#/Vol] 13.4 10*3/uL 4.4-11.0 [facility] Work [facility]: Blood erythrocytes count (nu mber/volume)on 09-25-2022 RBC (Bld) [#/Vol] 5.84 10*6/uL 4.6-6.2 [facility] Work Phone: Blood hemoglobin measurement (mass/volume)on 09-25-2022 Hemoglobin (Bld) [Mass/Vol] 16.2 g/dL 13.0-16.5 [facility] Work Phone: Blood lymphocytes/100 leukoc yteson 09-25-2022 Lymphocytes/100 WBC (Bld) 13.3 % 19-41 [facility] Work Phone: Blood monocytes/100 leukocyt eson 09-25-2022 Monocytes/100 WBC (Bld) 6.9 % 0-10 [facility] Work Phone: Blood platelet mean volumeon 09-25-2022 Platelet mean volume (Bld) [Entitic vol] 10.1 fL 6.2-12.0 [facility] Work Phone: Determination of erythrocyte mean corpuscular volume (MCV)on 09-25-2022 MCV (RBC) [Entitic vol] 82.4 fL 80-94 [facility] Work Phone: Hematocrit Auto (Bld) [Volum e fraction]on 09-25-2022 Hematocrit (Bld) [Volume fraction] 48.1 % 40-54 [facility] Work Phone: Laboratory - Chemistry and C hemistry - challengeon 09-25-2022 ALP [Catalytic activity/Vol] 67 U/L 45-117 [facility] Work Phone: [phone] ALT [Catalytic activity/Vol] 10 U/L 16-61 [facility] Work Phone: [phone] CO2 [Moles/Vol] 29.0 mmol/L 21.0-32.0 [facility] Work Phone: [phone] Globulin (S) [Mass/Vol] 3.6 g/dL 2.2-4.2 [facility] Work Phone: [phone] Lipase [Catalytic activity/Vol] 101 U/L 73-393 [facility] Work Phone: [phone] Urea nitrogen/Creatinine [Mass ratio] 21.7 mg/mg 10-20 [facility] Work Phone: [phone] Laboratory - Hematology and Cell countson 09-25-2022 Erythrocyte distribution width (RBC) [Entitic vol] 38.2 fL 35.1-43.9 [facility] Work Phone: [phone] Erythrocyte distribution width (RBC) [Ratio] 12.9 % 11.6-14.6 [facility] Work Phone: Immature granulocytes/100 WBC (Bld) 0.400 % 0.0-0.9 [facility] Work Phone: [phone] Comment on above: IG% - Immature Granu locytes (promyelocytes, myelocytes and metamyelocytes) > 1% indicates that a LEFT SHIFT is Present. MCH (RBC) [Entitic mass] 27.7 pg 27.0-32.0 [facility] Work Phone: [phone] Nucleated RBC/100 WBC (Bld) [Ratio] 0 % 0-5 [facility] Work Phone: MCHC Auto (RBC) [Mass/Vol]on 09-25-2022 MCHC (RBC) [Mass/Vol] 33.7 g/dL 32-36 [facility] Work Phone: No Panel Informationon 09-25 Estimated Creatinine Clearance Calc 60.02 ml/min [facility] Work Phone: Estimated GFR (MDRD) Amer 80 mL/min >60 [facility] Work Phone: Comment on above: GFR Calc Estimated GFR (MDRD) Non-Af Amer 66 mL/min >60 [facility] Work Phone: Comment on above: Non- GFR Calc Platelets bldon 09-25-2022 Platelets (Bld) [#/Vol] 213 10*3/uL 150-450 [facility] Work Phone: Serum or plasma albumin lexx urement (mass/volume)on 09-25-2022 Albumin [Mass/Vol] 4.1 g/dL 3.2-5.0 [facility] Work Phone: Serum or plasma albumin/glob ulin mass ratioon 09-25-2022 Albumin/Globulin [Mass ratio] 1.1 {ratio} 0.9-2.4 [facility] Work Phone: Serum or plasma calcium lexx urement (mass/volume)on 09-25-2022 Calcium [Mass/Vol] 9.2 mg/dL 8.5-10.1 [facility] Work Phone: Serum or plasma creatinine m easurement (mass/volume)on 09-25-2022 Creatinine [Mass/Vol] 1.15 mg/dL 0.70-1.30 [facility] Work Phone: Comment on above: The validity of the calculated GFR & GFRAA in patients over 70 years has not been determined. Clinical correlation is essential. Serum or plasma urea nitroge n measurement (mass/volume)on 09-25-2022 Urea nitrogen [Mass/Vol] 25 mg/dL 7-18 [facility] Work Phone: Thin prep Papanicolaou smear with manual screeningon 09-25-2022 Thin prep Papanicolaou smear with manual screening 16 U/L 15-37 [facility] Work Phone: Thin prep Papanicolaou smear with manual screening 7 5-15 [facility] Work Phone: Absolute lymphocyte counton 04-20-2022 Lymphocytes Auto (Unsp spec) [#/Vol] 1.66 10*3/uL 0.83-4.51 [facility] Work Phone: Basophil percentageon 2021 Basophils/100 WBC (Bld) 0.6 % 0-1 [facility] Work Phone: Bilirubin [Mass/Vol] 0.50 mg/dL 0.20-1.00 [facility] Work Phone: Comment on above: For patients on eltr ombopag therapy, use of Dimension [place] TBIL is not recommended. Chloride [Moles/Vol] 103 mmol/L 98-107 [facility] Work Phone: Eosinophils/100 WBC (Bld) 0.7 % 0-5 [facility] Work Phone: Glucose [Mass/Vol] 132 mg/dL 74-106 [facility] Work Phone: Comment on above: Fasting Glucose resu lt greater than or equal to 126 mg/dL suggests DIABETES MELLITUS per A.D.A. criteria. Neutrophils (Bld) [#/Vol] 12.4 10*3/uL 2.0-7.7 [facility] Work Phone: Neutrophils/100 WBC (Bld) 80.8 % 47-70 [facility] Work Phone: Potassium [Moles/Vol] 4.1 mmol/L 3.5-5.1 [facility] Work Phone: Protein [Mass/Vol] 8.1 g/dL 6.4-8.2 [facility] Work Phone: Sodium [Moles/Vol] 140 mmol/L 136-145 [facility] Work Phone: WBC (Bld) [#/Vol] 15.4 10*3/uL 4.4-11.0 [facility] Work Phone: Blood erythrocytes count (nu mber/volume)on 04-20-2022 RBC (Bld) [#/Vol] 5.63 10*6/uL 4.6-6.2 [facility] Work Phone: Blood hemoglobin measurement (mass/volume)on 04-20-2022 Hemoglobin (Bld) [Mass/Vol] 15.8 g/dL 13.0-16.5 [facility] Work Phone: Blood lymphocytes/100 leukoc yteson 04-20-2022 Lymphocytes/100 WBC (Bld) 10.8 % 19-41 [facility] Work Phone: Blood monocytes/100 leukocyt eson 04-20-2022 Monocytes/100 WBC (Bld) 6.7 % 0-10 [facility] Work Phone: Blood platelet mean volumeon 04-20-2022 Platelet mean volume (Bld) [Entitic vol] 10.4 fL 6.2-12.0 [facility] Work Phone: Determination of erythrocyte mean corpuscular volume (MCV)on 04-20-2022 MCV (RBC) [Entitic vol] 84.5 fL 80-94 [facility] Work Phone: Hematocrit Auto (Bld) [Volum e fraction]on 04-20-2022 Hematocrit (Bld) [Volume fraction] 47.6 % 40-54 [facility] Work Phone: Laboratory - Chemistry and C hemistry - challengeon 04-20-2022 ALP [Catalytic activity/Vol] 75 U/L 45-117 [facility] Work Phone: ALT [Catalytic activity/Vol] 9 U/L 16-61 [facility] Work Phone: CO2 [Moles/Vol] 32.0 mmol/L 21.0-32.0 [facility] Work Phone: Globulin (S) [Mass/Vol] 4.0 g/dL 2.2-4.2 [facility] Work Phone: Lipase [Catalytic activity/Vol] 111 U/L 73-393 [facility] Work Phone: Urea nitrogen/Creatinine [Mass ratio] 18.9 mg/mg 10-20 [facility] Work Phone: Laboratory - Hematology and Cell countson 04-20-2022 Erythrocyte distribution width (RBC) [Entitic vol] 39.8 fL 35.1-43.9 [facility] Work Phone: Erythrocyte distribution width (RBC) [Ratio] 13.0 % 11.6-14.6 [facility] Work Phone: Immature granulocytes/100 WBC (Bld) 0.400 % 0.0-0.9 [facility] Work Phone: Comment on above: IG% - Immature Granu locytes (promyelocytes, myelocytes and metamyelocytes) > 1% indicates that a LEFT SHIFT is Present. MCH (RBC) [Entitic mass] 28.1 pg 27.0-32.0 [facility] Work Phone: Nucleated RBC/100 WBC (Bld) [Ratio] 0 % 0-5 [facility] Work Phone: MCHC Auto (RBC) [Mass/Vol]on 04-20-2022 MCHC (RBC) [Mass/Vol] 33.2 g/dL 32-36 [facility] Work Phone: No Panel Informationon 04-20 Troponin I High Sensitivity 6 pg/mL 3.0-78.0 [facility] Work Phone: Comment on above: Please Note: [place] Units and Gender Specific Reference Ranges. For more information see Policy Stat Procedure [place] High Sensitivity Troponin (TNIH) and attachments. Estimated Creatinine Clearance Calc 57.44 ml/min [facility] Work Phone: Estimated GFR (MDRD) Amer 75 mL/min >60 [facility] Work Phone: Comment on above: GFR Calc Estimated GFR (MDRD) Non-Af Amer 62 mL/min >60 [facility] Work Phone: Comment on above: Non- GFR Calc Platelets bldon 04-20-2022 Platelets (Bld) [#/Vol] 208 10*3/uL 150-450 [facility] Work Phone: Serum or plasma albumin lexx urement (mass/volume)on 04-20-2022 Albumin [Mass/Vol] 4.1 g/dL 3.2-5.0 [facility] Work Phone: Serum or plasma albumin/glob ulin mass ratioon 04-20-2022 Albumin/Globulin [Mass ratio] 1.0 {ratio} 0.9-2.4 [facility] Work Phone: Serum or plasma calcium lexx urement (mass/volume)on 04-20-2022 Calcium [Mass/Vol] 9.5 mg/dL 8.5-10.1 [facility] Work Phone: Serum or plasma creatinine m easurement (mass/volume)on 04-20-2022 Creatinine [Mass/Vol] 1.22 mg/dL 0.70-1.30 [facility] Work Phone: Comment on above: The validity of the calculated GFR & GFRAA in patients over 70 years has not been determined. Clinical correlation is essential. Serum or plasma urea nitroge n measurement (mass/volume)on 04-20-2022 Urea nitrogen [Mass/Vol] 23 mg/dL 7-18 [facility] Work Phone: Thin prep Papanicolaou smear with manual screeningon 04-20-2022 Thin prep Papanicolaou smear with manual screening 20 U/L 15-37 [facility] Work Phone: Thin prep Papanicolaou smear with manual screening 5 5-15 [facility] Work Phone: XR Ankle - left AP and Later al and obliqueon 01-25-2021 IMPRESSION: Moderate soft tissue swelling over the ankle. Degenerative changes as discussed [employer] Remittance Clerk: CHRISTIN Transcribe Date/Time: Jan 25 2021 3:39P Dictated by : ELIEZER DURBIN DO This examination was interpreted and the report reviewed and electronically signed by: ELIEZER DURBIN DO on Jan 25 2021 3:41PM [facility] DIVISION OF RADIOLOGY * * *Final Report* * * DATE OF EXAM: Jan 25 2021 11:00AM WOX [id number] - XR ANKLE 3V AP/LAT/OBL LT / PROCEDURE REASON: Acute left ankle pain * * * * Physician Interpretation * * * * LEFT ankle EXAM DATE/TIME: 01/25/2021 11:00 AM HISTORY: 70 years old Clinical information: Acute left ankle pain Pt. states Lt lateral ankle pain for 1 day. Pt states he has had this pain on and off in the past. No injury. TECHNIQUE: Images: XR ANKLE 3V AP/LAT/OBL LT Comparison: None. RESULT: Findings: Right :No fractures or dislocations are seen. Left :No fractures or dislocations are seen. Moderate size anterior heel spur. Moderate spur projecting from the anterior inferior aspect of the distal tibia best seen on the lateral view. Mild narrowing of the medial compartment of the ankle. There is soft tissue swelling over the ankle. DIVISION OF RADIOLOGY Provider, [facility] [place] - 01/25/2021 * * *Final Report* * * DATE OF EXAM: Jan 25 2021 11:00AM WOX [id number] - XR ANKLE 3V AP/LAT/OBL LT / PROCEDURE REASON: Acute left ankle pain * * * * Physician Interpretation * * * * LEFT ankle EXAM DATE/TIME: 01/25/2021 11:00 AM HISTORY: 70 years old Clinical information: Acute left ankle pain Pt. states Lt lateral ankle pain for 1 day. Pt states he has had this pain on and off in the past. No injury. TECHNIQUE: Images: XR ANKLE 3V AP/LAT/OBL LT Comparison: None. RESULT: Findings: Right :No fractures or dislocations are seen. Left :No fractures or dislocations are seen. Moderate size anterior heel spur. Moderate spur projecting from the anterior inferior aspect of the distal tibia best seen on the lateral view. Mild narrowing of the medial compartment of the ankle. There is soft tissue swelling over the ankle. IMPRESSION IMPRESSION: Moderate soft tissue swelling over the ankle. Degenerative changes as discussed [employer] Remittance Clerk: CHRISTIN Transcribe Date/Time: Jan 25 2021 3:39P Dictated by : ELIEZER DURBIN DO This examination was interpreted and the report reviewed and electronically signed by: ELIEZER DURBIN DO on Jan 25 2021 3:41PM EST [facility] Radiology Study observation (narrative) Vida stewart [facility] XR Ankle - left AP and Later al and obliqueOrdered By: [facility] Provider on 01-25-2021 [facility] Vital Signs Date Time Vital Sign Value Performing Clinician Facility 07-15-2025 14:30-0400 Body temperature 98.1 [degF] Dr. Celso Hunt MD Work Phone: [phone] [place] [address] 07-15-2025 14:30-0400 Diastolic blood pressure 59 mm[Hg] Dr. Celso Hunt MD Work Phone: [phone] [place] [address] 07-15-2025 14:30-0400 Heart rate 71 /min Dr. Celso Hunt MD Work Phone: [facility] 07-15-2025 14:30-0400 Respiratory rate 16 /min Dr. Celso Hunt MD Work Phone: [facility] 07-15-2025 14:30-0400 SaO2% (BldA) [Mass fraction] 100 % Dr. Celso Hunt MD Work Phone: [facility] 07-15-2025 14:30-0400 Systolic blood pressure 112 mm[Hg] Dr. Celso Hunt MD Work Phone: [facility] 07-15-2025 12:44-0400 Body height 177.[address] Celso Hunt MD Work Phone: [facility] 07-15-2025 12:44-0400 Body mass index (BMI) [Ratio] 27.9 kg/m2 Dr. Celso Hunt MD Work Phone: [facility] 07-15-2025 12:44-0400 Body weight 88.[address] Celso Hunt MD Work Phone: [facility] 06-30-2025 13:40-0400 Body mass index (BMI) [Ratio] 27.15 kg/m2 Jose Antonio Lindseytodd SHOP SERVICE TECHNICIAN.MANAGER OF SECURITY Work Phone: [facility] 06-30-2025 13:40-0400 Body temperature 98.29 [degF] Jose Antoniomagy Portillotodd SHOP SERVICE TECHNICIAN.MANAGER OF SECURITY Work Phone: [facility] 06-30-2025 13:40-0400 Body weight 88.3 kg [facility] SHOP SERVICE TECHNICIAN.MANAGER OF SECURITY Work Phone: [facility] 06-30-2025 13:40-0400 Diastolic blood pressure 70 mm[Hg] Jose Antonio Portillotodd SHOP SERVICE TECHNICIAN.MANAGER OF SECURITY Work Phone: [facility] 06-30-2025 13:40-0400 Heart rate 110 /min Jose Antoniomagy Chase SHOP SERVICE TECHNICIAN.MANAGER OF SECURITY Work Phone: [facility] 06-30-2025 13:40-0400 Respiratory rate 16 /min Jose Antoniomagy Portillotodd SHOP SERVICE TECHNICIAN.MANAGER OF SECURITY Work Phone: [facility] 06-30-2025 13:40-0400 SaO2% (BldA) [Mass fraction] 97 % Jose Antonio Portillotodd SHOP SERVICE TECHNICIAN.MANAGER OF SECURITY Work Phone: [facility] 06-30-2025 13:40-0400 Systolic blood pressure 124 mm[Hg] Jose Antonio Chase SHOP SERVICE TECHNICIAN.MANAGER OF SECURITY Work Phone: [facility] 06-18-2025 13:12-0400 Body mass index (BMI) [Ratio] 26.78 kg/m2 Manuela Pham SHOP SERVICE TECHNICIAN.MANAGER OF SECURITY Work Phone: [facility] 06-18-2025 13:12-0400 Body weight 87.09 kg Manuela Pham SHOP SERVICE TECHNICIAN.MANAGER OF SECURITY Work Phone: [facility] 06-18-2025 13:12-0400 Diastolic blood pressure 82 mm[Hg] Manuela Pham SHOP SERVICE TECHNICIAN.MANAGER OF SECURITY Work Phone: [facility] 06-18-2025 13:12-0400 Heart rate 86 /min Manuela Pham SHOP SERVICE TECHNICIAN.MANAGER OF SECURITY Work Phone: [facility] 06-18-2025 13:12-0400 SaO2% (BldA) [Mass fraction] 96 % Manuela Pham SHOP SERVICE TECHNICIAN.MANAGER OF SECURITY Work Phone: [facility] 06-18-2025 13:12-0400 Systolic blood pressure 118 mm[Hg] Manuela Pham SHOP SERVICE TECHNICIAN.MANAGER OF SECURITY Work Phone: [facility] 06-11-2025 22:27-0400 Body temperature 98 [degF] Dr. Celso Hunt MD Work Phone: [facility] 06-11-2025 22:27-0400 Diastolic blood pressure 78 mm[Hg] Dr. Celso Hunt MD Work Phone: [facility] 06-11-2025 22:27-0400 Heart rate 100 /min Dr. Celso Hunt MD Work Phone: [facility] 06-11-2025 22:27-0400 Respiratory rate 18 /min Dr. Celso Hunt MD Work Phone: [facility] 06-11-2025 22:27-0400 SaO2% (BldA) [Mass fraction] 98 % Dr. Celso Hunt MD Work Phone: [facility] 06-11-2025 22:27-0400 Systolic blood pressure 129 mm[Hg] Dr. Celso Hunt MD Work Phone: [facility] 06-11-2025 18:31-0400 Body height 180.[address] Celso Hunt MD Work Phone: [facility] 06-09-2025 09:35-0400 Body height 180.3 cm Sade Shine SHOP SERVICE TECHNICIAN.MANAGER OF SECURITY Work Phone: [facility] 06-09-2025 09:35-0400 Body mass index (BMI) [Ratio] 27.12 kg/m2 Sade Shine SHOP SERVICE TECHNICIAN.MANAGER OF SECURITY Work Phone: [facility] 06-09-2025 09:35-0400 Body weight 88.2 kg Sade Rl SHOP SERVICE TECHNICIAN.MANAGER OF SECURITY Work Phone: [facility] 06-09-2025 09:35-0400 SaO2% (BldA) [Mass fraction] 98 % Sade Rl SHOP SERVICE TECHNICIAN.MANAGER OF SECURITY Work Phone: [facility] 02-26-2025 09:59-0400 Body height 180.3 cm Yanira Redd MD Work Phone: [facility] 02-26-2025 09:59-0400 Body mass index (BMI) [Ratio] 25.83 kg/m2 Yanira Redd MD Work Phone: [facility] 02-26-2025 09:59-0400 Body weight 84 kg Yanira Redd MD Work Phone: [facility] 02-26-2025 09:59-0400 Diastolic blood pressure 60 mm[Hg] Yanira Redd MD Work Phone: [facility] 02-26-2025 09:59-0400 Heart rate 70 /min Yanira Redd MD Work Phone: [facility] 02-26-2025 09:59-0400 SaO2% (BldA) [Mass fraction] 98 % Yanira Redd MD Work Phone: [facility] 02-26-2025 09:59-0400 Systolic blood pressure 116 mm[Hg] Yanira Redd MD Work Phone: [facility] 02-19-2025 17:23-0400 Heart rate 80 /min Dr. Celso Hunt MD Work Phone: [facility] 02-19-2025 17:23-0400 Respiratory rate 15 /min Dr. Celso Hunt MD Work Phone: [facility] 02-19-2025 17:23-0400 SaO2% (BldA) [Mass fraction] 97 % Dr. Celso Hunt MD Work Phone: [facility] 02-19-2025 15:27-0400 Body height 180.[address] Celso Hunt MD Work Phone: [facility] 02-19-2025 15:27-0400 Body temperature 98.8 [degF] Dr. Celso Hunt MD Work Phone: [facility] 02-19-2025 15:27-0400 Diastolic blood pressure 83 mm[Hg] Dr. Celso Hunt MD Work Phone: [facility] 02-19-2025 15:27-0400 Systolic blood pressure 153 mm[Hg] Dr. Celso Hunt MD Work Phone: [facility] 02-19-2025 07:56-0400 Body mass index (BMI) [Ratio] 26.57 kg/m2 Krislyn Aberegg PA Work Phone: [facility] 02-19-2025 07:56-0400 Body temperature 99.5 [degF] Krislyn Aberegg PA Work Phone: [facility] 02-19-2025 07:56-0400 Body weight 86.4 kg Krislyn Aberegg PA Work Phone: [facility] 02-19-2025 07:56-0400 Diastolic blood pressure 60 mm[Hg] Krislyn Aberegg PA Work Phone: [facility] 02-19-2025 07:56-0400 Heart rate 80 /min Krislyn Aberegg PA Work Phone: [facility] 02-19-2025 07:56-0400 Respiratory rate 16 /min Krislyn Aberegg PA Work Phone: [facility] 02-19-2025 07:56-0400 SaO2% (BldA) [Mass fraction] 98 % Krislyn Aberegg PA Work Phone: [facility] 02-19-2025 07:56-0400 Systolic blood pressure 122 mm[Hg] Allen FLOWERS Work Phone: [facility] 01-13-2025 08:56-0400 Body mass index (BMI) [Ratio] 26.23 kg/m2 Anderson Moomaw SHOP SERVICE TECHNICIAN.MANAGER OF SECURITY Work Phone: [facility] 01-13-2025 08:56-0400 Body temperature 97.9 [degF] Anderson Moomaw SHOP SERVICE TECHNICIAN.MANAGER OF SECURITY Work Phone: [facility] 01-13-2025 08:56-0400 Body weight 85.3 kg Anderson Moomaw SHOP SERVICE TECHNICIAN.MANAGER OF SECURITY Work Phone: [facility] 01-13-2025 08:56-0400 Diastolic blood pressure 64 mm[Hg] Anderson Moomaw SHOP SERVICE TECHNICIAN.MANAGER OF SECURITY Work Phone: [facility] 01-13-2025 08:56-0400 Heart rate 74 /min Anderson Moomaw SHOP SERVICE TECHNICIAN.MANAGER OF SECURITY Work Phone: [facility] 01-13-2025 08:56-0400 Respiratory rate 16 /min Anderson Moomaw SHOP SERVICE TECHNICIAN.MANAGER OF SECURITY Work Phone: [facility] 01-13-2025 08:56-0400 SaO2% (BldA) [Mass fraction] 97 % Anderson Moomaw SHOP SERVICE TECHNICIAN.MANAGER OF SECURITY Work Phone: [facility] 01-13-2025 08:56-0400 Systolic blood pressure 128 mm[Hg] Anderson Moomaw SHOP SERVICE TECHNICIAN.MANAGER OF SECURITY Work Phone: [facility] 12-10-2024 09:35-0500 Body mass index (BMI) [Ratio] 26.08 kg/m2 Daniella Suppan SHOP SERVICE TECHNICIAN.MANAGER OF SECURITY Work Phone: [facility] 12-10-2024 09:35-0500 Body temperature 97.3 [degF] Daniella Suppan SHOP SERVICE TECHNICIAN.MANAGER OF SECURITY Work Phone: [facility] 12-10-2024 09:35-0500 Body weight 84.82 kg Daniella Suppan SHOP SERVICE TECHNICIAN.MANAGER OF SECURITY Work Phone: [facility] 12-10-2024 09:35-0500 Diastolic blood pressure 66 mm[Hg] Daniella Duncanan SHOP SERVICE TECHNICIAN.MANAGER OF SECURITY Work Phone: [facility] 12-10-2024 09:35-0500 Heart rate 64 /min Daniella Samuels SHOP SERVICE TECHNICIAN.MANAGER OF SECURITY Work Phone: [facility] 12-10-2024 09:35-0500 SaO2% (BldA) [Mass fraction] 96 % Daniella Samuels SHOP SERVICE TECHNICIAN.MANAGER OF SECURITY Work Phone: [facility] 12-10-2024 09:35-0500 Systolic blood pressure 128 mm[Hg] Daniella Samuels SHOP SERVICE TECHNICIAN.MANAGER OF SECURITY Work Phone: [facility] 12-09-2024 09:56-0500 Diastolic blood pressure 71 mm[Hg] Sade Shine SHOP SERVICE TECHNICIAN.MANAGER OF SECURITY Work Phone: [facility] 12-09-2024 09:56-0500 Heart rate 67 /min Sade Shine SHOP SERVICE TECHNICIAN.MANAGER OF SECURITY Work Phone: [facility] 12-09-2024 09:56-0500 Systolic blood pressure 134 mm[Hg] Sade Shine SHOP SERVICE TECHNICIAN.MANAGER OF SECURITY Work Phone: [facility] 12-09-2024 09:53-0500 Body height 180.3 cm Sade Shine APRN.MANAGER OF SECURITY Work Phone: [facility] 12-09-2024 09:53-0500 Body mass index (BMI) [Ratio] 26.23 kg/m2 Sade Shine SHOP SERVICE TECHNICIAN.MANAGER OF SECURITY Work Phone: [facility] 12-09-2024 09:53-0500 Body weight 85.3 kg Sade Shine APRN.MANAGER OF SECURITY Work Phone: [facility] 12-09-2024 09:53-0500 SaO2% (BldA) [Mass fraction] 98 % Sade Shine SHOP SERVICE TECHNICIAN.MANAGER OF SECURITY Work Phone: [facility] 09-30-2024 10:49-0500 Body mass index (BMI) [Ratio] 26.87 kg/m2 Daniella Suppan SHOP SERVICE TECHNICIAN.MANAGER OF SECURITY Work Phone: [facility] 09-30-2024 10:49-0500 Body temperature 97.39 [degF] Daniella Suppan SHOP SERVICE TECHNICIAN.MANAGER OF SECURITY Work Phone: [facility] 09-30-2024 10:49-0500 Body weight 87.4 kg Daniella Suppan SHOP SERVICE TECHNICIAN.MANAGER OF SECURITY Work Phone: [facility] 09-30-2024 10:49-0500 Diastolic blood pressure 64 mm[Hg] Daniella Suppan SHOP SERVICE TECHNICIAN.MANAGER OF SECURITY Work Phone: [facility] 09-30-2024 10:49-0500 Heart rate 75 /min Daniella Suppan SHOP SERVICE TECHNICIAN.MANAGER OF SECURITY Work Phone: [facility] 09-30-2024 10:49-0500 Respiratory rate 14 /min Daniella Suppan SHOP SERVICE TECHNICIAN.MANAGER OF SECURITY Work Phone: [facility] 09-30-2024 10:49-0500 SaO2% (BldA) [Mass fraction] 97 % Daniella Suppan SHOP SERVICE TECHNICIAN.MANAGER OF SECURITY Work Phone: [facility] 09-30-2024 10:49-0500 Systolic blood pressure 118 mm[Hg] Daniella Suppan SHOP SERVICE TECHNICIAN.MANAGER OF SECURITY Work Phone: [facility] 08-29-2024 10:07-0500 Body height 180.3 cm Yanira Redd MD Work Phone: [facility] 08-29-2024 10:07-0500 Body mass index (BMI) [Ratio] 26.14 kg/m2 Yanira Redd MD Work Phone: [facility] 08-29-2024 10:07-0500 Body weight 85 kg Yanira Redd MD Work Phone: [facility] 08-29-2024 10:07-0500 Diastolic blood pressure 60 mm[Hg] Yanira Redd MD Work Phone: [facility] 08-29-2024 10:07-0500 Heart rate 68 /min Yanira Redd MD Work Phone: [facility] 08-29-2024 10:07-0500 SaO2% (BldA) [Mass fraction] 96 % Yanira Redd MD Work Phone: [facility] 08-29-2024 10:07-0500 Systolic blood pressure 118 mm[Hg] Yanira Redd MD Work Phone: [facility] 06-10-2024 11:22-0400 Body mass index (BMI) [Ratio] 26.75 kg/m2 Daniella Suppan SHOP SERVICE TECHNICIAN.MANAGER OF SECURITY Work Phone: [facility] 06-10-2024 11:22-0400 Body weight 87 kg Daniella Suppan SHOP SERVICE TECHNICIAN.MANAGER OF SECURITY Work Phone: [facility] 06-10-2024 11:22-0400 Diastolic blood pressure 62 mm[Hg] Daniella Suppan SHOP SERVICE TECHNICIAN.MANAGER OF SECURITY Work Phone: [facility] 06-10-2024 11:22-0400 Heart rate 64 /min Daniella Suppan SHOP SERVICE TECHNICIAN.MANAGER OF SECURITY Work Phone: [facility] 06-10-2024 11:22-0400 Respiratory rate 16 /min Daniella Suppan SHOP SERVICE TECHNICIAN.MANAGER OF SECURITY Work Phone: [facility] 06-10-2024 11:22-0400 Systolic blood pressure 120 mm[Hg] Daniella Suppan SHOP SERVICE TECHNICIAN.MANAGER OF SECURITY Work Phone: [facility] 06-05-2024 08:57-0400 Body height 180.3 cm Sade Shine SHOP SERVICE TECHNICIAN.MANAGER OF SECURITY Work Phone: [facility] 06-05-2024 08:57-0400 Body mass index (BMI) [Ratio] 26.69 kg/m2 Sade Shine SHOP SERVICE TECHNICIAN.MANAGER OF SECURITY Work Phone: [facility] 06-05-2024 08:57-0400 Body weight 86.8 kg Sade Shine SHOP SERVICE TECHNICIAN.MANAGER OF SECURITY Work Phone: [facility] 06-05-2024 08:57-0400 SaO2% (BldA) [Mass fraction] 95 % Sade Shine APRN.CNP Work Phone: [facility] 02-25-2024 17:53-0400 Body temperature 97.8 [degF] [facility] 02-25-2024 17:53-0400 Diastolic blood pressure 80 mm[Hg] [facility] 02-25-2024 17:53-0400 Heart rate 68 /min [facility] 02-25-2024 17:53-0400 Respiratory rate 16 /min [facility] 02-25-2024 17:53-0400 SaO2% (BldA) [Mass fraction] 97 % [facility] 02-25-2024 17:53-0400 Systolic blood pressure 133 mm[Hg] [facility] 02-25-2024 14:12-0400 Body mass index (BMI) [Ratio] 26.3 kg/m2 [facility] 02-25-2024 14:12-0400 Body weight 85.3 kg [facility] 02-25-2024 12:54-0400 Body height 180.34 cm [facility] 02-13-2024 11:28-0400 Body height 180.3 cm Yanira Redd MD Work Phone: [facility] 02-13-2024 11:28-0400 Body mass index (BMI) [Ratio] 26.5 kg/m2 Yanira Redd MD Work Phone: [facility] 02-13-2024 11:28-0400 Body weight 86.2 kg Yanira Redd MD Work Phone: [facility] 02-13-2024 11:28-0400 Diastolic blood pressure 68 mm[Hg] Yanira Redd MD Work Phone: [facility] 02-13-2024 11:28-0400 Heart rate 58 /min Yanira Redd MD Work Phone: [facility] 02-13-2024 11:28-0400 SaO2% (BldA) [Mass fraction] 95 % Yanira Redd MD Work Phone: [facility] 02-13-2024 11:28-0400 Systolic blood pressure 116 mm[Hg] Yanira Redd MD Work Phone: [facility] 01-25-2024 08:46-0400 Body temperature 97.11 [degF] Kim Athy PA-C Work Phone: [facility] 01-25-2024 08:46-0400 Body weight 87.7 kg Kim Athy PA-C Work Phone: [facility] 01-25-2024 08:46-0400 Diastolic blood pressure 68 mm[Hg] Kim Athy PA-C Work Phone: [facility] 01-25-2024 08:46-0400 Heart rate 78 /min Kim Athy PA-C Work Phone: [facility] 01-25-2024 08:46-0400 Respiratory rate 16 /min Kim Athy PA-C Work Phone: [facility] 01-25-2024 08:46-0400 SaO2% (BldA) [Mass fraction] 97 % Kim Athy PA-C Work Phone: [facility] 01-25-2024 08:46-0400 Systolic blood pressure 142 mm[Hg] Kim Athy PA-C Work Phone: [facility] 12-05-2023 07:52-0500 Body weight 89.36 kg NA Wu PA-C Work Phone: [facility] 12-05-2023 07:52-0500 Diastolic blood pressure 64 mm[Hg] NA Wu PA-C Work Phone: [facility] 12-05-2023 07:52-0500 Heart rate 58 /min NA Wu PA-C Work Phone: [facility] 12-05-2023 07:52-0500 Respiratory rate 16 /min NA Wu PA-C Work Phone: [facility] 12-05-2023 07:52-0500 SaO2% (BldA) [Mass fraction] 98 % NA Wu PA-C Work Phone: [facility] 12-05-2023 07:52-0500 Systolic blood pressure 118 mm[Hg] NA Wu PA-C Work Phone: [facility] 11-21-2023 10:13-0500 Body height 180.3 cm Yanira Redd MD Work Phone: [facility] 11-21-2023 10:13-0500 Body weight 88 kg Yanira Redd MD Work Phone: [facility] 11-21-2023 10:13-0500 Diastolic blood pressure 74 mm[Hg] Yanira Redd MD Work Phone: [facility] 11-21-2023 10:13-0500 Heart rate 78 /min Yanira Redd MD Work Phone: [facility] 11-21-2023 10:13-0500 SaO2% (BldA) [Mass fraction] 97 % Yanira Redd MD Work Phone: [facility] 11-21-2023 10:13-0500 Systolic blood pressure 122 mm[Hg] Yanira Redd MD Work Phone: [facility] 10-21-2023 09:30-0500 Body temperature 98 [degF] Dr. Celso Hunt Work Phone: [facility] 10-21-2023 09:30-0500 Diastolic blood pressure 71 mm[Hg] Dr. Celso Hunt Work Phone: [facility] 10-21-2023 09:30-0500 Heart rate 74 /min Dr. Celso Hunt Work Phone: [facility] 10-21-2023 09:30-0500 Respiratory rate 18 /min Dr. Celso Hunt Work Phone: [facility] 10-21-2023 09:30-0500 SaO2% (BldA) [Mass fraction] 95 % Dr. Celso Hunt Work Phone: [facility] 10-21-2023 09:30-0500 Systolic blood pressure 122 mm[Hg] Dr. Celso Hunt Work Phone: [facility] 10-21-2023 00:59-0500 Body mass index (BMI) [Ratio] 27.4 kg/m2 Dr. Celso Hunt Work Phone: [facility] 10-20-2023 09:51-0500 Body height 180.[address] Celso Hunt Work Phone: [facility] 10-20-2023 09:51-0500 Body weight [address] Celso Hunt Work Phone: [facility] 10-19-2023 11:37-0500 Heart rate 78 /min [facility] 10-19-2023 10:52-0500 Diastolic blood pressure 92 mm[Hg] [facility] 10-19-2023 10:52-0500 Respiratory rate 19 /min [facility] 10-19-2023 10:52-0500 SaO2% (BldA) [Mass fraction] 97 % [facility] 10-19-2023 10:52-0500 Systolic blood pressure 137 mm[Hg] [facility] 10-19-2023 08:02-0500 Body height 180.34 cm [facility] 10-19-2023 08:02-0500 Body mass index (BMI) [Ratio] 28.7 kg/m2 [facility] 10-19-2023 08:02-0500 Body temperature 98.2 [degF] [facility] 10-19-2023 08:02-0500 Body weight 93.4 kg [facility] 07-18-2023 07:53-0400 Body height 180.3 cm Sade Shine APRN.MANAGER OF SECURITY Work Phone: [facility] 07-18-2023 07:53-0400 Body weight 88.27 kg Sade Shine APRN.MANAGER OF SECURITY Work Phone: [facility] 07-18-2023 07:53-0400 SaO2% (BldA) [Mass fraction] 96 % Sade Shine SHOP SERVICE TECHNICIAN.MANAGER OF SECURITY Work Phone: [facility] 04-04-2023 10:12-0400 Diastolic blood pressure 70 mm[Hg] Manuela Haagen SHOP SERVICE TECHNICIAN.MANAGER OF SECURITY Work Phone: [facility] 04-04-2023 10:12-0400 Heart rate 57 /min Manuela Haagen SHOP SERVICE TECHNICIAN.MANAGER OF SECURITY Work Phone: [facility] 04-04-2023 10:12-0400 Respiratory rate 16 /min Manuela Haagen SHOP SERVICE TECHNICIAN.MANAGER OF SECURITY Work Phone: [facility] 04-04-2023 10:12-0400 SaO2% (BldA) [Mass fraction] 96 % Manuela Haagen SHOP SERVICE TECHNICIAN.MANAGER OF SECURITY Work Phone: [facility] 04-04-2023 10:12-0400 Systolic blood pressure 112 mm[Hg] Manuela Haagen SHOP SERVICE TECHNICIAN.MANAGER OF SECURITY Work Phone: [facility] 02-14-2023 07:52-0400 Body weight 90.72 kg NA Wu PA-C Work Phone: [facility] 02-14-2023 07:52-0400 Diastolic blood pressure 60 mm[Hg] NA Wu PA-C Work Phone: [facility] 02-14-2023 07:52-0400 Heart rate 50 /min NA Wu PA-C Work Phone: [facility] 02-14-2023 07:52-0400 SaO2% (BldA) [Mass fraction] 98 % NA Wu PA-C Work Phone: [facility] 02-14-2023 07:52-0400 Systolic blood pressure 126 mm[Hg] NA Wu PA-C Work Phone: [facility] 12-27-2022 08:48-0400 Body height 180.3 cm Sade Shine SHOP SERVICE TECHNICIAN.MANAGER OF SECURITY Work Phone: [facility] 12-27-2022 08:48-0400 Body weight 92.31 kg Sade Shine SHOP SERVICE TECHNICIAN.MANAGER OF SECURITY Work Phone: [facility] 12-27-2022 08:48-0400 SaO2% (BldA) [Mass fraction] 96 % Sade Shine APRN.MANAGER OF SECURITY Work Phone: [facility] 11-24-2022 09:22-0500 Body temperature 98.01 [degF] NA Wu PA-C Work Phone: [facility] 11-24-2022 09:22-0500 Body weight 89.81 kg NA Wu PA-C Work Phone: [facility] 11-24-2022 09:22-0500 Diastolic blood pressure 66 mm[Hg] NA Wu PA-C Work Phone: [facility] 11-24-2022 09:22-0500 Heart rate 63 /min NA Wu PA-C Work Phone: [facility] 11-24-2022 09:22-0500 Respiratory rate 16 /min NA Wu PA-C Work Phone: [facility] 11-24-2022 09:22-0500 SaO2% (BldA) [Mass fraction] 97 % NA Wu PA-C Work Phone: [facility] 11-24-2022 09:22-0500 Systolic blood pressure 124 mm[Hg] NA Wu PA-C Work Phone: [facility] 10-18-2022 08:49-0500 Body height 180.3 cm Ximena Liz PA-C Work Phone: [facility] 10-18-2022 08:49-0500 Body temperature 97.59 [degF] Ximena Liz PA-C Work Phone: [facility] 10-18-2022 08:49-0500 Body weight 90.27 kg Ximena Liz PA-C Work Phone: [facility] 10-18-2022 08:49-0500 Diastolic blood pressure 70 mm[Hg] Ximena Liz PA-C Work Phone: [facility] 10-18-2022 08:49-0500 Heart rate 72 /min Ximena Liz PA-C Work Phone: [facility] 10-18-2022 08:49-0500 SaO2% (BldA) [Mass fraction] 96 % Ximena Liz PA-C Work Phone: [facility] 10-18-2022 08:49-0500 Systolic blood pressure 108 mm[Hg] Ximena Lineville PA-C Work Phone: [facility] 09-28-2022 14:30-0500 Body height 180.3 cm Shelbi Ruth MD Work Phone: [facility] 09-28-2022 14:30-0500 Body temperature 97.59 [degF] Shelbi Ruth MD Work Phone: [facility] 09-28-2022 14:30-0500 Body weight 90.27 kg Shelbi Ruth MD Work Phone: [facility] 09-28-2022 14:30-0500 Diastolic blood pressure 62 mm[Hg] Shelbi Ruth MD Work Phone: [facility] 09-28-2022 14:30-0500 Heart rate 67 /min Shelbi Ruth MD Work Phone: [facility] 09-28-2022 14:30-0500 SaO2% (BldA) [Mass fraction] 97 % Shelbi Ruth MD Work Phone: [facility] 09-28-2022 14:30-0500 Systolic blood pressure 124 mm[Hg] Shelbi Ruth MD Work Phone: [facility] 09-26-2022 07:25-0500 Body temperature 98.8 [degF] [facility] Work Phone: 09-26-2022 07:25-0500 Diastolic blood pressure 76 mm[Hg] [facility] Work Phone: 09-26-2022 07:25-0500 Heart rate 67 /min [facility] Work Phone: 09-26-2022 07:25-0500 Respiratory rate 16 /min [facility] Work Phone: 09-26-2022 07:25-0500 SaO2% (BldA) [Mass fraction] 97 % [facility] Work Phone: 09-26-2022 07:25-0500 Systolic blood pressure 131 mm[Hg] [facility] Work Phone: 09-25-2022 10:48-0500 Diastolic blood pressure 87 mm[Hg] [facility] Work Phone: 09-25-2022 10:48-0500 Heart rate 67 /min [facility] Work Phone: 09-25-2022 10:48-0500 Systolic blood pressure 145 mm[Hg] [facility] Work Phone: 09-25-2022 10:34-0500 Body height 180.34 cm [facility] Work Phone: 09-25-2022 10:34-0500 Body mass index (BMI) [Ratio] 29 kg/m2 [facility] Work Phone: 09-25-2022 10:34-0500 Body temperature 97.2 [degF] [facility] Work Phone: 09-25-2022 10:34-0500 Body weight 94.61 kg [facility] Work Phone: 09-25-2022 10:34-0500 Respiratory rate 16 /min [facility] Work Phone: 09-25-2022 10:34-0500 SaO2% (BldA) [Mass fraction] 97 % [facility] Work Phone: 08-15-2022 08:37-0400 Body weight 92.53 kg BRUNO Wu PA-C Work Phone: [facility] 08-15-2022 08:37-0400 Diastolic blood pressure 64 mm[Hg] NA Wu PA-C Work Phone: [facility] 08-15-2022 08:37-0400 Heart rate 60 /min NA Wu PA-C Work Phone: [facility] 08-15-2022 08:37-0400 Respiratory rate 16 /min NA Wu PA-C Work Phone: [facility] 08-15-2022 08:37-0400 SaO2% (BldA) [Mass fraction] 97 % NA Wu PA-C Work Phone: [facility] 08-15-2022 08:37-0400 Systolic blood pressure 122 mm[Hg] NA Wu PA-C Work Phone: [facility] 04-26-2022 14:50-0400 Body temperature 99.61 [degF] Kim Athy PA-C Work Phone: [facility] 04-26-2022 14:50-0400 Diastolic blood pressure 66 mm[Hg] Kim Athy PA-C Work Phone: [facility] 04-26-2022 14:50-0400 Heart rate 70 /min Kim Athy PA-C Work Phone: [facility] 04-26-2022 14:50-0400 Respiratory rate 16 /min Kim Athy PA-C Work Phone: [facility] 04-26-2022 14:50-0400 SaO2% (BldA) [Mass fraction] 95 % Kim Athy PA-C Work Phone: [facility] 04-26-2022 14:50-0400 Systolic blood pressure 118 mm[Hg] Kim Athy PA-C Work Phone: [facility] 04-20-2022 04:58-0400 Diastolic blood pressure 89 mm[Hg] [facility] Work Phone: 04-20-2022 04:58-0400 Heart rate 80 /min [facility] Work Phone: 04-20-2022 04:58-0400 Respiratory rate 20 /min [facility] Work Phone: 04-20-2022 04:58-0400 SaO2% (BldA) [Mass fraction] 97 % [facility] Work Phone: 04-20-2022 04:58-0400 Systolic blood pressure 168 mm[Hg] [facility] Work Phone: 04-19-2022 23:37-0400 Body height 180.34 cm [facility] Work Phone: 04-19-2022 23:37-0400 Body mass index (BMI) [Ratio] 31.4 kg/m2 [facility] Work Phone: 04-19-2022 23:37-0400 Body temperature 98.9 [degF] [facility] Work Phone: 04-19-2022 23:37-0400 Body weight 102.05 kg [facility] Work Phone: 02-11-2022 08:04-0400 SaO2% (BldA) [Mass fraction] 96 % Sade Shine APRN.MANAGER OF SECURITY Work Phone: [facility] 02-11-2022 07:59-0400 Body height 180.3 cm Sade Shine SHOP SERVICE TECHNICIAN.MANAGER OF SECURITY Work Phone: [facility] 02-11-2022 07:59-0400 Body weight 94.8 kg Sade Shine SHOP SERVICE TECHNICIAN.MANAGER OF SECURITY Work Phone: [facility] 02-09-2022 08:08-0400 Body height 178 cm Celso Hunt MD Work Phone: [facility] 02-09-2022 08:08-0400 Body weight 96.16 kg Celso Hunt MD Work Phone: [facility] 02-09-2022 08:08-0400 Diastolic blood pressure 70 mm[Hg] Celso Hunt MD Work Phone: [facility] 02-09-2022 08:08-0400 Heart rate 68 /min Celso Hunt MD Work Phone: [facility] 02-09-2022 08:08-0400 Respiratory rate 16 /min Celso Hunt MD Work Phone: [facility] 02-09-2022 08:08-0400 Systolic blood pressure 128 mm[Hg] Celso Hunt MD Work Phone: [facility] Encounters Encounter Date Encounter Type Care Provider Facility Start: 08-18-2025 ambulatory Kim Pichardo [place] [place] Start: 08-18-2025 Evaluation and manag ement of inpatient Kim Pichardo Facility:[facility] Start: 08-16-2025 ambulatory Carlos Mena ility:[facility] Start: 08-16-2025 End: 08-18-2025 Evaluation and management of inpatient Celso [place] Facility:[facility] Start: 08-14-2025 ambulatory [facility] Facility:[facility] Start: 07-15-2025 End: 07-15-2025 Emergency department patient visit Dr. Celso Hunt MD Work Phone: -Emergency Department Work Phone: Start: 07-15-2025 End: 07-15-2025 ambulatory DANIELLA A SUPPAN Facility:[facility] Start: 06-30-2025 End: 06-30-2025 Telephone encounter Yanira Redd MD Work Phone: Cardiology Start: 06-30-2025 End: 06-30-2025 Office outpatient visit 15 minutes Jose Antonio Chase SHOP SERVICE TECHNICIAN.MANAGER OF SECURITY Work Phone: [facility] [place] Comment on above: Epistaxis (Primary D x) Start: 06-30-2025 End: 06-30-2025 ambulatory DANIELLA A SUPPAN Facility:[facility] Start: 06-18-2025 End: 06-18-2025 Office outpatient visit 25 minutes Manuela Pham SHOP SERVICE TECHNICIAN.MANAGER OF SECURITY Work Phone: [facility] [place] Comment on above: Chronic constipation (Primary Dx) Start: 06-18-2025 End: 06-18-2025 ambulatory [facility] Facility:[facility] Start: 06-11-2025 End: 06-11-2025 Emergency department patient visit Dr. Celso Hunt MD Work Phone: -Emergency Department Work Phone: Start: 06-09-2025 End: 06-09-2025 Patient encounter procedure Sade Shine SHOP SERVICE TECHNICIAN.MANAGER OF SECURITY Work Phone: Neurology Comment on above: Parkinson's disease without dyskinesia or fluctuating manifestations (HCC) (Primary Dx); Orthostatic hypotension; Constipation, unspecified constipation type Start: 06-09-2025 End: 06-09-2025 ambulatory SADE SHINE Facility:[facility] Start: 05-27-2025 End: 05-30-2025 ambulatory Daniella A Taj SHOP SERVICE TECHNICIAN.MANAGER OF SECURITY Work Phone: Internal Medicine [place] [phone] Start: 02-26-2025 End: 02-26-2025 Patient encounter procedure Yanira Redd MD Work Phone: Cardiology Comment on above: Paroxysmal A-fib (HC C) (Primary Dx) Start: 02-26-2025 End: 02-26-2025 [facility] Start: 02-19-2025 End: 02-19-2025 Emergency department patient visit Dr. Celso Hunt MD Work Phone: -Emergency Department Work Phone: Start: 02-19-2025 End: 02-19-2025 Patient encounter procedure Allen FLOWERS Work Phone: [facility] Comment on above: Acute gout of right foot, unspecified cause (Primary Dx) Start: 02-19-2025 End: 02-19-2025 ambulatory DANIELLA A SUPPAN Facility:[facility] Start: 01-13-2025 End: 01-13-2025 ambulatory DANIELLA A SUPPAN Facility:[facility] Start: 01-13-2025 End: 01-13-2025 Patient encounter procedure Anderson Hinton SHOP SERVICE TECHNICIAN.MANAGER OF SECURITY Work Phone: [facility] Comment on above: Acute idiopathic gou t of right foot (Primary Dx) Start: 12-12-2024 End: 12-12-2024 Follow-up encounter Daniella Samuels APRN.CNP Work Phone: [facility] [place] Comment on above: Hypothyroidism, acqu ired Start: 12-10-2024 End: 12-10-2024 ambulatory DANIELLA A SUPPAN Facility:[facility] Start: 12-10-2024 End: 12-10-2024 Office outpatient visit 25 minutes Daniella Samuels SHOP SERVICE TECHNICIAN.MANAGER OF SECURITY Work Phone: [facility] [place] Comment on above: Parkinson's disease without dyskinesia or fluctuating manifestations (HCC) (Primary Dx); Hypothyroidism, acquired; Pure hypercholesterolemia; Essential hypertension; Paroxysmal atrial fibrillation (HCC); Gout with manifestations; Chronic constipation Start: 12-09-2024 End: 12-09-2024 ambulatory SADE SHINE Facility:[facility] Start: 12-09-2024 End: 12-09-2024 Patient encounter procedure Sade Shine APRN.MANAGER OF SECURITY Work Phone: Neurology Comment on above: Constipation, unspec ified constipation type (Primary Dx); Parkinson's disease without dyskinesia or fluctuating manifestations (HCC); Sialorrhea; Orthostatic hypotension Start: 09-30-2024 End: 09-30-2024 ambulatory DANIELLA A SUPPAN Facility:[facility] Start: 09-30-2024 End: 09-30-2024 Office outpatient visit 15 minutes Daniella Samuels APRN.MANAGER OF SECURITY [facility] Comment on above: Acute idiopathic gou t of multiple sites (Primary Dx); Essential hypertension; Hypothyroidism, acquired Start: 09-24-2024 End: 09-24-2024 Telephone encounter Daniella Samuels APRN.CNP Work Phone: [facility] [place] Comment on above: Results Start: 09-23-2024 End: 09-23-2024 ambulatory DANIELLA A SUPPAN Facility:[facility] Start: 09-17-2024 End: 09-17-2024 Refill Sade Shine APRN.MANAGER OF SECURITY Work Phone: [facility] [place] Comment on above: Refill Request Refill Request; Need for labwork Start: 08-29-2024 End: 08-29-2024 ambulatory YANIRA REDD Facility:[facility] Start: 08-29-2024 End: 08-29-2024 Patient encounter procedure Yanira Redd MD Work Phone: Cardiology Comment on above: Atrial fibrillation, unspecified type (HCC) (Primary Dx) Start: 08-22-2024 End: 08-22-2024 Telephone encounter Mamadou Wu PA-C Work Phone: [facility] Comment on above: Patient Assistance Start: 06-11-2024 End: 06-11-2024 Telephone encounter Daniella Samuels APRN.CNP Work Phone: [facility] Start: 06-10-2024 End: 06-10-2024 Office outpatient visit 25 minutes Daniella Samuels APRN.MANAGER OF SECURITY Work Phone: [facility] Comment on above: Parkinson's disease without dyskinesia or fluctuating manifestations (HCC) (Primary Dx); Screening for depression; Essential hypertension; Paroxysmal atrial fibrillation (HCC); Pure hypercholesterolemia; Gastroesophageal reflux disease without esophagitis; Malignant neoplasm of urinary bladder, unspecified site (HCC); Screening for prostate cancer; Screening for diabetes mellitus; Screening for thyroid disorder Start: 06-05-2024 End: 06-05-2024 Patient encounter procedure Sade Shine APRN.CNP Work Phone: Neurology Comment on above: Parkinson's disease without dyskinesia or fluctuating manifestations (HCC) (Primary Dx); Constipation, unspecified constipation type; Sialorrhea Start: 03-28-2024 Telephone encounter Mamadou Wu PA-C Work Phone: [facility] Comment on above: Forms ([facility]) Start: 02-28-2024 Telephone encounter Celso Hunt MD Work Phone: [facility] Comment on above: Out of Medication; M edication Request Start: 02-25-2024 End: 02-25-2024 Emergency department patient visit [facility] Work Phone: Start: 02-13-2024 End: 02-13-2024 Patient encounter procedure Yanira Redd MD Work Phone: Cardiology Comment on above: Atrial fibrillation, unspecified type (HCC) (Primary Dx) Start: 01-25-2024 End: 01-25-2024 Patient encounter procedure Kim Warner PA-C Work Phone: [facility] Comment on above: Chronic [facility], unspecified cause (Primary Dx) Start: 01-08-2024 Telephone encounter Bailee RAMSEY Navigation Start: 01-03-2024 Telephone encounter Bailee RAMSEY Navigation Start: 12-27-2023 Telephone encounter Bailee RAMSEY Navigation Start: 12-19-2023 Telephone encounter Bailee RAMSEY Navigation Start: 12-08-2023 Telephone encounter Celso Hunt MD Work Phone: [facility] Comment on above: Forms (Wrist splints ) Start: 12-06-2023 Social Work Bailee reid Comment on above: Atrial fibrillation, unspecified type (HCC) (Primary Dx) Start: 12-05-2023 Telephone encounter Bailee RAMSEY Navigation Start: 12-05-2023 End: 12-05-2023 Patient encounter procedure Mamadou Wu DEBBY Work Phone: [facility] Comment on above: 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); Parkinson's disease with dyskinesia and fluctuating manifestations; New onset atrial fibrillation (HCC); Hypophosphataemia; Right-sided cerebellar lacunar infarction (HCC); calculus of kidney; Bladder stones; Essential hypertension; Fatty liver; Hyperlipidemia, unspecified hyperlipidemia type Start: 11-28-2023 Social Work Bailee reid Start: 11-22-2023 Telephone encounter Bailee RAMSEY Navigation Start: 11-21-2023 End: 11-21-2023 Patient encounter procedure Yanira Redd MD Work Phone: Cardiology Comment on above: New onset atrial fib rillation (HCC); RIND (reversible ischemic neurologic deficit) ([facility]) Start: 11-15-2023 Telephone encounter Celso Hunt MD Work Phone: [facility] Comment on above: Results Start: 10-21-2023 Non-patient / Non-visit Dr. Harman Hunt Work Phone: [facility] Work Phone: Start: 10-20-2023 Non-patient / Non-visit Dr. Harman uHnt Work Phone: [facility] Start: 10-20-2023 Non-patient / Non-visit Dr. Harman Hunt Work Phone: [facility] Work Phone: Start: 10-19-2023 End: 10-21-2023 Evaluation and management of inpatient Dr. Celso Hunt [facility] Work Phone: Start: 10-19-2023 Non-patient / Non-visit Dr. Harman Hunt Work Phone: [facility] Start: 10-19-2023 Non-patient / Non-visit Dr. Harman Hunt Work Phone: [facility] Work Phone: Start: 10-19-2023 Evaluation and manag [facility] Work Phone: Start: 10-19-2023 observation encounter [facility] Work Phone: Start: 09-14-2023 Telephone encounter Celso Hunt MD Work Phone: [facility] Comment on above: Forms Start: 07-18-2023 End: 07-18-2023 Patient encounter procedure Sade Shine APRN.MANAGER OF SECURITY Work Phone: Neurology Comment on above: Parkinson's disease without dyskinesia or fluctuating manifestations (Primary Dx) Start: 07-03-2023 Refill Celso Hunt MD Work Phone: [facility] [place] Comment on above: Refill Request Start: 04-05-2023 Telephone encounter Cleso Hunt MD Work Phone: [facility] [place] Comment on above: Workers Comp questio ns Start: 04-04-2023 End: 04-04-2023 Office outpatient visit 15 minutes Manuela Pham SHOP SERVICE TECHNICIAN.MANAGER OF SECURITY Work Phone: [facility] [place] Comment on above: Acute pain of right shoulder (Primary Dx) Start: 02-15-2023 Telephone encounter Celso Hunt MD Work Phone: [facility] [place] Comment on above: Results Start: 02-14-2023 End: 02-14-2023 Patient encounter procedure Mamadou Wu PA-C Work Phone: [facility] [place] Comment on above: Essential hypertensi on (Primary Dx); Hyperlipidemia, unspecified hyperlipidemia type; TIA (transient ischemic attack); Bilateral carotid artery stenosis; Parkinson's disease (HCC); REM sleep behavior disorder; Hypothyroidism, acquired; Thyroid nodule; Anxiety; Gout with manifestations; Fatty liver Start: 01-05-2023 ambulatory Danielle Soliz MA Brennon igate [facility] [place] Comment on above: Population Health Na vigation Outreach (/[facility] Care Gaps) Start: 12-27-2022 End: 12-27-2022 Office outpatient visit 15 minutes Sade Shine SHOP SERVICE TECHNICIAN.MANAGER OF SECURITY Work Phone: Neurology Comment on above: Parkinson's disease (HCC) (Primary Dx) Start: 11-24-2022 End: 11-24-2022 Patient encounter procedure Mamadou Wu PA-C Work Phone: [facility] [place] Comment on above: Acute idiopathic gou t of multiple sites (Primary Dx) Start: 10-31-2022 ambulatory Edel Pugh [facility] [place] Comment on above: Population Health Na vigation Outreach ([facility] [place] [facility]SA) Start: 10-18-2022 End: 10-18-2022 Patient encounter procedure Ximena Hill PA-C Work Phone: General Surgery Comment on above: Calculus of gallblad aliza with chronic cholecystitis with obstruction (Primary Dx) Start: 09-28-2022 End: 09-28-2022 Patient encounter procedure Shelbi Ruth MD Work Phone: General Surgery Comment on above: Status post laparosc opic cholecystectomy (Primary Dx) Start: 09-25-2022 End: 09-26-2022 Evaluation and management of inpatient [facility] 3 Start: 09-25-2022 End: 09-26-2022 observation encounter [facility] Work Phone: Start: 09-15-2022 ambulatory Eedl Pugh [facility] [place] Comment on above: Population Health Na vigation Outreach ([facility]) Start: 08-17-2022 Telephone encounter Celso Hunt MD Work Phone: [facility] Comment on above: lab results Start: 08-15-2022 End: 08-15-2022 Patient encounter procedure Mamadou Wu PA-C Work Phone: [facility] Comment on above: Essential hypertensi on (Primary Dx); TIA (transient ischemic attack); Hyperlipidemia, unspecified hyperlipidemia type; Bilateral carotid artery stenosis; Parkinson's disease (HCC); Hypothyroidism, acquired; Thyroid nodule; Fatty liver; Gout with manifestations; Anxiety; REM sleep behavior disorder; Screening for colon cancer Start: 05-09-2022 Refill Celso Hunt MD Work Phone: [facility] Comment on above: Refill Request Start: 04-26-2022 End: 04-26-2022 Patient encounter procedure Kim Warner PA-C Work Phone: [facility] Comment on above: Acute gout of right foot, unspecified cause (Primary Dx) Start: 04-26-2022 Telephone encounter Celso Hunt MD Work Phone: [facility] Comment on above: Patient Update; Medi cation Request Start: 04-19-2022 End: 04-20-2022 Emergency department patient visit [facility] Start: 02-11-2022 End: 02-11-2022 Patient encounter procedure Sade Shine APRN.MANAGER OF SECURITY Work Phone: Neurology Comment on above: Parkinson's disease (HCC) (Primary Dx); REM sleep behavior disorder; Sialorrhea Start: 02-10-2022 Telephone encounter Celso Hunt MD Work Phone: [facility] [place] Comment on above: Results Start: 02-09-2022 End: 02-09-2022 Patient encounter procedure Celso Hunt MD Work Phone: [facility] [place] Comment on above: Parkinson's disease (HCC) (Primary Dx); Restless legs syndrome; Essential hypertension; Hyperlipidemia, unspecified hyperlipidemia type; Gallbladder polyp; Hypothyroidism, acquired; Thyroid nodule; Gout with manifestations; Bilateral carotid artery stenosis; Anxiety Start: 02-03-2022 Telephone encounter Celso Hunt MD Work Phone: [facility] Comment on above: requesting prescript ion (gout) Start: 01-06-2022 ambulatory Edel Pugh MA [facility] Comment on above: Population Health Na vigation Outreach ([facility] ) Start: 01-25-2021 End: 01-25-2021 Subsequent hospital visit by physician [facility] Work Phone: Radiology Comment on above: Acute left ankle luis manuel n [M25.572] Procedures Date Procedure Procedure Detail Performing Clinician Start: 06-11-2025 Computed tomography of abdomen and pelvis with intravenous contrast Dr. Celso Hunt MD Work Phone: Start: 02-26-2025 Follow-up visit Follow Up YANIRA REDD Start: 02-19-2025 Plain X-ray abdomen Dr. Celso Hunt MD Work Phone: Start: 06-10-2024 Adult depression screening assessment Daniella Samuels APRN.MANAGER OF SECURITY Work Phone: Start: 02-25-2024 Computed tomography of abdomen and pelvis with intravenous contrast Start: 11-21-2023 Ecg routine ecg w/least 12 lds i&r only [facility] Provider Start: 10-19-2023 MRI of brain without contrast Dr. Celso Hunt Work Phone: Start: 10-19-2023 CT angiography of head and neck Start: 10-19-2023 Plain chest X-ray Start: 10-19-2023 CT of head without contrast Start: 02-14-2023 Lipid 1996 panel - Serum or Plasma Celso Hunt MD Work Phone: Start: 09-25-2022 Total cholecystectomy and exploration of common bile duct Start: 09-25-2022 Computed tomography of abdomen and pelvis with intravenous contrast Start: 04-20-2022 Plain chest X-ray Start: 02-11-2021 Adult depression screening assessment Edel Pugh MA Start: 01-25-2021 Radex ankle complete minimum 3 views Alexa Garces PA-C Work Phone: History of cholecystectomy Status post laparoscopic cholecystectomy Shelbi Ruth MD Work Phone: History of cholecystectomy Status post laparoscopic cholecystectomy Plan of Treatment Date Care Activity Detail Author Start: 02-15-2028 Lipid 1996 panel - S grisel or Plasma Lipid Screening [facility] Start: 02-15-2028 Lipid panel Lipid Screening [facility] Start: 02-15-2028 LIPID SCREEN LIPID SCREEN [facility] Start: 06-10-2027 Diabetes Screening Diabetes Screenin g [facility] Start: 02-09-2027 LIPID SCREEN LIPID SCREEN [facility] Start: 12-05-2026 Diabetes Screening Diabetes Screenin g [facility] Start: 06-18-2026 Annual PCP Team Beam Builder tracie Disease Visit Annual PCP Team Chronic Disease Visit [facility] Start: 05-06-2026 LIPID SCREEN LIPID SCREEN [facility] Start: 02-26-2026 BP Controlled (<130/80) BP Controlle d (<130/80) [facility] Start: 02-19-2026 BP Controlled (<130/80) BP Controlle d (<130/80) [facility] Start: 02-14-2026 DIABETES SCREEN DIABETES SCREEN [facility] Start: 02-14-2026 Diabetes Screening Diabetes Screenin g [facility] Start: 01-13-2026 BP Controlled (<130/80) BP Controlle d (<130/80) [facility] Start: 12-16-2025 End: 12-16-2025 Patient encounter procedure 12/16/2025 10:00 AM EST Office Visit Neurology [address] [phone] Sade Shine APRN.MANAGER OF SECURITY [address] [place] [address] Follow up Neurology Comment on above: Follow up Start: 12-10-2025 Annual PCP Team Beam Builder tracie Disease Visit Annual PCP Team Chronic Disease Visit [facility] Start: 12-10-2025 BP Controlled (<130/80) BP Controlle d (<130/80) [facility] Start: 09-30-2025 Annual PCP Team Beam Builder tracie Disease Visit Annual PCP Team Chronic Disease Visit [facility] Start: 09-30-2025 BP Controlled (<130/80) BP Controlle d (<130/80) [facility] Start: 09-30-2025 Covid-19 Vaccine () Covid-19 Vaccine () [facility] Comment on above: Postponed from 06/16 (Declined at this time) Start: 09-19-2025 End: 09-19-2025 Patient encounter procedure Cardiology Comment on above: 6 month follow up Start: 08-29-2025 BP Controlled (<130/80) BP Controlle d (<130/80) [facility] Start: 08-15-2025 DIABETES SCREEN DIABETES SCREEN [facility] Start: 07-15-2025 [facility] Start: 06-30-2025 End: 09-29-2025 CBC panel - Blood by Automated count COMPLETE BLOOD COUNT Lab Routine Bleeding from the nose Expected: 06/30/2025, Expires: 09/29/2025 [facility] Work Phone: Comment on above: Expected: 06/30/2025 , Expires: 09/29/2025 Start: 06-16-2025 Influenza vaccination [facility] Start: 06-11-2025 [facility] Start: 06-10-2025 BP Controlled (<130/80) BP Controlle d (<130/80) [facility] Start: 06-10-2025 Depression Screening Depression Scre ening [facility] Start: 06-10-2025 RSV Vaccine (1 - 1-d ose 60+ series) RSV Vaccine (1 - 1-dose 60+ series) [facility] Comment on above: Postponed from 05/12 (Declined at this time) Start: 06-10-2025 RSV Vaccine (1 - 1-d ose 75+ series) RSV Vaccine (1 - 1-dose 75+ series) [facility] Comment on above: Postponed from 05/12 (Declined at this time) Start: 06-10-2025 Shingrix Vaccine (1 of 2) [place] grix Vaccine (1 of 2) [facility] Comment on above: Postponed from 05/12 (Declined at this time) Start: 06-10-2025 Urine microalbumin profile DTaP,Tdap,Td Vaccine (1 - Tdap) [facility] Comment on above: Postponed from 05/12 (Declined at this time) Start: 06-10-2025 End: 06-10-2025 Patient encounter procedure 06/10/2025 9:00 AM EDT Office Visit [facility] [place] [address] [place] [address] Daniella Samuels, SHOP SERVICE TECHNICIAN.MANAGER OF SECURITY [address] [place] [address] 6 month exam [facility] Comment on above: 6 month exam Start: 06-09-2025 End: 06-09-2025 Patient encounter procedure 06/09/2025 10:00 AM EDT Office Visit Neurology [address] [phone] Sade Shine, SHOP SERVICE TECHNICIAN.MANAGER OF SECURITY [address] [place] [address] 6 Month follow up Neurology Comment on above: 6 Month follow up Start: 04-14-2025 Influenza vaccination Influenza Vacc ine (#1) [facility] Comment on above: Postponed from 06/16 (Declined at this time) Start: 02-26-2025 End: 02-26-2025 Patient encounter procedure 02/26/2025 10:40 AM EDT Office Visit Cardiology [address] [address] Yanira Redd MD [address] [place] [address] 6 month follow up Cardiology Comment on above: 6 month follow up Start: 02-19-2025 [facility] Start: 02-12-2025 BP Controlled (<130/80) BP Controlle d (<130/80) [facility] Start: 02-09-2025 DIABETES SCREEN DIABETES SCREEN [facility] Start: 12-10-2024 End: 12-10-2024 Patient encounter procedure [facility] Comment on above: 6 month f/up Start: 12-09-2024 End: 12-09-2024 Patient encounter procedure 12/09/2024 10:00 AM EST Office Visit Neurology [address] [phone] Sade Shine, SHOP SERVICE TECHNICIAN.MANAGER OF SECURITY [address] [place] [address] 6 month follow up Neurology Comment on above: 6 month follow up Start: 12-05-2024 Annual PCP Team Beam Builder tracie Disease Visit Annual PCP Team Chronic Disease Visit [facility] Start: 12-05-2024 BP Controlled (<130/80) BP Controlle d (<130/80) [facility] Start: 11-25-2024 End: 02-24-2025 Thyrotropin [Units/volume] in Serum or Plasma THYROID STIMULATING HORMONE Lab Routine Hypothyroidism, acquired Expected: 11/25/2024, Expires: 02/24/2025 [facility] Work Phone: Comment on above: Expected: 11/25/2024 , Expires: 02/24/2025 Start: 11-21-2024 BP Controlled (<130/80) BP Controlle d (<130/80) [facility] Start: 10-24-2024 Annual PCP Team Beam Builder tracie Disease Visit Annual PCP Team Chronic Disease Visit [facility] Start: 10-24-2024 Covid-19 Vaccine (#1) Covid-19 Vacci ne (#1) [facility] Comment on above: Postponed from 11/12 (Declined at this time) Start: 10-24-2024 Covid-19 Vaccine ( season) Covid-19 Vaccine () [facility] Comment on above: Postponed from 06/16 (Declined at this time) Start: 10-16-2024 Advance Directive Discussion Advance Directive Discussion [facility] Start: 09-30-2024 End: 09-30-2024 Patient encounter procedure 09/30/2024 11:00 AM EST Office Visit [facility] [address] [place], [place] [id number] Daniella Samuels, SHOP SERVICE TECHNICIAN.[facility] [address] [place], [place] [phone] Go over medications. [facility] Comment on above: Go over medications. Start: 08-26-2024 End: 08-26-2024 Patient encounter procedure 08/26/2024 9:00 AM EST Office Visit Cardiology [address] [place] [phone] Yanira Redd MD [address] [place] [phone] 6 month follow up Cardiology Comment on above: 6 month follow up Start: 08-11-2024 End: 11-10-2024 Thyrotropin [Units/volume] in Serum or Plasma THYROID STIMULATING HORMONE Lab Routine Hypothyroidism, acquired Expected: 08/11/2024, Expires: 11/10/2024 [facility] Work Phone: Comment on above: Expected: 08/11/2024 , Expires: 11/10/2024 Start: 06-16-2024 Covid-19 Vaccine ( season) Covid-19 Vaccine () [facility] Start: 06-16-2024 Influenza vaccination [facility] Start: 06-10-2024 End: 09-09-2024 CBC W Auto Differential panel - Blood [facility] Work Phone: Comment on above: Expected: 06/10/2024 , Expires: 09/09/2024 Start: 06-10-2024 End: 09-09-2024 Cobalamin (Vitamin B12) [Mass/volume] in Serum or Plasma [facility] Comment on above: Expected: 06/10/2024 , Expires: 09/09/2024 Start: 06-10-2024 End: 09-09-2024 Hemoglobin A1c in Blood [facility] Comment on above: Expected: 06/10/2024 , Expires: 09/09/2024 Start: 06-10-2024 End: 09-09-2024 Magnesium [Mass/volume] in Serum or Plasma [facility] Comment on above: Expected: 06/10/2024 , Expires: 09/09/2024 Start: 06-10-2024 End: 09-09-2024 PSA/PROSTATE SPECIFIC ANTIGEN SCREENING [facility] Comment on above: Expected: 06/10/2024 , Expires: 09/09/2024 Start: 06-10-2024 End: 09-09-2024 Thyrotropin [Units/volume] in Serum or Plasma [facility] Comment on above: Expected: 06/10/2024 , Expires: 09/09/2024 Start: 06-10-2024 End: 06-10-2024 Patient encounter procedure [facility] Comment on above: 6 month follow up Start: 06-05-2024 End: 06-05-2024 Patient encounter procedure 06/05/2024 9:00 AM EDT Office Visit Neurology [address] [phone] Sade Shine APRN.MANAGER OF SECURITY [address] [place] [address] Rescheduled 01/16/24 Neurology Comment on above: Rescheduled 01/16/24 Start: 06-04-2024 End: 09-03-2024 Comprehensive metabolic 2000 panel - Serum or Plasma COMP METABOLIC PANEL Lab Routine Essential hypertension Fatty liver Hyperlipidemia, unspecified hyperlipidemia type Expected: 06/04/2024, Expires: 09/03/2024 [facility] Work Phone: Comment on above: Expected: 06/04/2024 , Expires: 09/03/2024 Start: 06-04-2024 End: 09-03-2024 Lipid 1996 panel - Serum or Plasma LIPID PANEL BASIC Lab Routine Hyperlipidemia, unspecified hyperlipidemia type Expected: 06/04/2024, Expires: 09/03/2024 [facility] Work Phone: Comment on above: Expected: 06/04/2024 , Expires: 09/03/2024 Start: 05-06-2024 DIABETES SCREEN DIABETES SCREEN [facility] Start: 04-14-2024 Influenza vaccination Influenza Vacc ine (#1) [facility] Comment on above: Postponed from 06/16 (Declined at this time) Start: 04-04-2024 ANNUAL PCP TEAM DIRECTOR ADVERTISING TRACIE DISEASE VISIT ANNUAL PCP TEAM CHRONIC DISEASE VISIT [facility] Start: 04-04-2024 BP CONTROLLED (<130/80) BP CONTROLLE D (<130/80) [facility] Start: 03-19-2024 End: 03-19-2024 Patient encounter procedure 03/19/2024 8:00 AM EDT Office Visit Neurology [address] [phone] Sade Shine APRN.MANAGER OF SECURITY [address] [address] Rescheduled 01/16/24 Neurology Comment on above: Rescheduled 01/16/24 Start: 02-25-2024 End: 02-25-2024 [facility] Start: 02-25-2024 Bacteria identified in Urine by Culture [facility] Start: 02-15-2024 ANNUAL PCP TEAM DIRECTOR ADVERTISING TRACIE DISEASE VISIT ANNUAL PCP TEAM CHRONIC DISEASE VISIT [facility] Start: 02-15-2024 BP CONTROLLED (<130/80) BP CONTROLLE D (<130/80) [facility] Start: 11-24-2023 ANNUAL PCP TEAM DIRECTOR ADVERTISING TRACIE DISEASE VISIT ANNUAL PCP TEAM CHRONIC DISEASE VISIT [facility] Start: 11-24-2023 BP CONTROLLED (<130/80) BP CONTROLLE D (<130/80) [facility] Start: 10-21-2023 Patient discharge [facility] Start: 10-19-2023 Admission procedure [facility] Start: 10-19-2023 Urine culture Urine Culture [facility] Start: 10-19-2023 Following clinical pathway protocol [facility] Start: 10-19-2023 Ambulation without limitation [facility] Start: 10-19-2023 Assessment of risk o f venous thromboembolism [facility] Start: 10-19-2023 Cardiac monitoring [facility] Start: 10-19-2023 Catheterization of vein [facility] Start: 10-19-2023 Continuous pulse oximetry [facility] Start: 10-19-2023 Elevation of head of bed [facility] Start: 10-19-2023 Exercises [facility] Start: 10-19-[address] anned interventions [facility] Start: 10-19-2023 Inhalation therapy procedure [facility] Start: 10-19-2023 Insertion of cathete r into peripheral vein [facility] Start: 10-19-2023 Measuring intake and output [facility] Start: 10-19-2023 Notification of physician [facility] Start: 10-19-2023 Providing care accor ding to standard [facility] Start: 10-19-2023 Referral to credit collection specialist [facility] Start: 10-19-2023 Referral to occupati onal therapist [facility] Start: 10-19-2023 Referral to service [facility] Start: 10-19-2023 Speech therapy assessment [facility] Start: 10-19-2023 Telemedicine consult ation with patient [facility] Start: 10-19-2023 Tobacco use cessatio n education [facility] Start: 10-19-2023 [facility] Start: 10-19-2023 Vital signs measurements [facility] Start: 10-19-2023 MRI of brain without contrast Brain without Contrast [facility] Start: 10-19-2023 Hospital admission, emergency, from emergency room, medical nature [facility] Start: 10-19-2023 Verification routine [facility] Start: 10-19-2023 Admission procedure [facility] Start: 10-19-2023 End: 10-19-2023 [facility] Start: 10-18-2023 BP CONTROLLED (<130/80) BP CONTROLLE D (<130/80) [facility] Start: 10-16-2023 Advance Directive Discussion Advance Directive Discussion [facility] Start: 10-16-2023 Behavioral Health Screening Behavioral Health Screening [facility] Start: 10-16-2023 Depression Assessment Depression Ass essment [facility] Start: 09-28-2023 BP CONTROLLED (<130/80) BP CONTROLLE D (<130/80) [facility] Start: 08-15-2023 ANNUAL PCP TEAM DIRECTOR ADVERTISING TRACIE DISEASE VISIT ANNUAL PCP TEAM CHRONIC DISEASE VISIT [facility] Start: 08-15-2023 BP CONTROLLED (<130/80) BP CONTROLLE D (<130/80) [facility] Start: 08-15-2023 COVID-19 VACCINE (#1) COVID-19 VACCI NE (#1) [facility] Comment on above: Postponed from 11/12 (Declined at this time) Start: 08-15-2023 SHINGRIX VACCINE (1 of 2) [place] GRIX VACCINE (1 of 2) [facility] Comment on above: Postponed from 05/12 (Insurance Coverage) Start: 08-15-2023 Urine microalbumin profile [facility] Comment on above: Postponed from 05/12 (Insurance Coverage) Start: 06-16-2023 Influenza vaccination [facility] Start: 2023 RSV Vaccine (1 - 1-d ose 75+ series) RSV Vaccine (1 - 1-dose 75+ series) [facility] Start: 04-26-2023 BP CONTROLLED (<130/80) BP CONTROLLE D (<130/80) [facility] Start: 04-14-2023 Influenza vaccination INFLUENZA (#1) [facility] Comment on above: Postponed from 06/16 (Declined at this time) Start: 02-09-2023 ANNUAL PCP TEAM DIRECTOR ADVERTISING TRACIE DISEASE VISIT ANNUAL PCP TEAM CHRONIC DISEASE VISIT [facility] Start: 02-09-2023 BP CONTROLLED (<130/80) BP CONTROLLE D (<130/80) [facility] Start: 12-08-2022 ANNUAL PCP TEAM DIRECTOR ADVERTISING TRACIE DISEASE VISIT ANNUAL PCP TEAM CHRONIC DISEASE VISIT [facility] Start: 10-16-2022 ADVANCE DIRECTIVE DISCUSSION ADVANCE DIRECTIVE DISCUSSION [facility] Start: 10-16-2022 DEPRESSION ASSESSMENT DEPRESSION ASS ESSMENT [facility] Start: 09-26-2022 Patient discharge [facility] Work Phone: Start: 09-25-2022 Care planning and pr oblem solving actions [facility] Work Phone: Start: 09-25-2022 Application of intermittent pneumatic compression device [facility] Work Phone: Start: 09-25-2022 Following clinical pathway protocol [facility] Work Phone: Start: 09-25-2022 Catheterization of vein [facility] Work Phone: Start: 09-25-2022 Maintenance of drain age tube [facility] Work Phone: Start: 09-25-2022 Procedure discontinued [facility] Work Phone: Start: 09-25-2022 Taking patient vital signs [facility] Work Phone: Start: 09-25-2022 End: 09-25-2022 [facility] Work Phone: Start: 09-25-2022 Admission procedure [facility] Work Phone: Start: 09-25-2022 Total cholecystectom y and exploration of common bile duct Laparoscopic, Cholecystectomy with IOC (Not Applicable) [facility] Work Phone: Start: 09-25-2022 Cholangiogram Cholangiogram/ O R,Initial [facility] Work Phone: Start: 09-25-2022 Fluoroscopic guidance O.R. Fluoro fo r C-Arm [facility] Work Phone: Start: 08-15-2022 End: 10-15-2022 CBC panel - Blood by Automated count [facility] Work Phone: Comment on above: Expected: 08/15/2022 , Expires: 10/15/2022 Start: 08-15-2022 End: 10-15-2022 Comprehensive metabolic 2000 panel - Serum or Plasma [facility] Work Phone: Comment on above: Expected: 08/15/2022 , Expires: 10/15/2022 Start: 06-16-2022 Influenza vaccination [facility] Start: 05-24-2022 COLORECTAL CANCER SCREENING COLORECTAL CANCER SCREENING [facility] Comment on above: Postponed from 05/12 (Declined at this time) Start: 04-19-2022 [facility] Work Phone: Start: 02-11-2022 Adult depression screening assessment DEPRESSION SCREENING [facility] Start: 02-09-2022 End: 02-09-2023 CBC W Auto Differential panel - Blood [facility] Work Phone: Comment on above: Expected: 02/09/2022 , Expires: 02/09/2023 Start: 02-09-2022 End: 02-09-2023 Comprehensive metabolic 2000 panel - Serum or Plasma [facility] Work Phone: Comment on above: Expected: 02/09/2022 , Expires: 02/09/2023 Start: 02-09-2022 End: 02-09-2023 LIPID PANEL BASIC [facility] Work Phone: Comment on above: Expected: 02/09/2022 , Expires: 02/09/2023 Start: 02-09-2022 End: 04-11-2022 Thyrotropin [Units/volume] in Serum or Plasma [facility] Work Phone: Comment on above: Expected: 02/09/2022 , Expires: 04/11/2022 Start: 10-16-2021 ADVANCE DIRECTIVE DISCUSSION ADVANCE DIRECTIVE DISCUSSION [facility] Start: 06-16-2021 Influenza vaccination INFLUENZA (#1) [facility] Start: 11-30-2018 COLORECTAL CANCER SCREENING COLORECTAL CANCER SCREENING [facility] Start: 11-30-2018 FECAL OCCULT BLOOD FECAL OCCULT BLOO D [facility] Start: 11-30-2018 Screening for malign ant neoplasm of colon [facility] Start: 2008 RSV Vaccine (1 - 1-d ose 60+ series) RSV Vaccine (1 - 1-dose 60+ series) [facility] Start: 1998 SHINGRIX VACCINE (1 of 2) [place] GRIX VACCINE (1 of 2) [facility] Start: 1993 COLOGUARD (FIT-DNA) COLOGUARD (FIT-D NA) [facility] Start: 1993 Colonoscopy COLONOSCOPY [facility] Start: [address] [facility] Start: 1993 Screening for malign ant neoplasm of colon [facility] Start: 1993 SIGMOIDOSCOPY SIGMOIDOSCOPY [facility] Start: 1967 Urine microalbumin profile [facility] Start: 1966 BP CONTROLLED (<130/80) BP CONTROLLE D (<130/80) [facility] Start: 1966 Depression Screening Depression Scre ening [facility] Start: 1953 COVID-19 VACCINE (1) COVID-19 VACCIN E (1) [facility] Start: 1948 COVID-19 VACCINE (#1) COVID-19 VACCI NE (#1) [facility] Hemoglobin.gastroint estin al.lower [Presence] in Stool by Immunoassay FECAL OCCULT BLOOD TEST Lab Routine Screening for colon cancer Ordered: 08/15/2022 [facility] Work Phone: Comment on above: Ordered: 08/15/2022 Patient Education [facility] Work Phone: Patient referral [facility] Work Phone: End: 09-14-2023 Us soft tissue head & neck real time imge docm US THYROID/PARATHYROID Radiology Routine Thyroid nodule 1 Occurrences starting 08/15/2022 until 09/14/2023 [facility] Work Phone: Comment on above: 1 Occurrences starti ng 08/15/2022 until 09/14/2023 End: 03-15-2024 Us soft tissue head & neck real time imge docm US THYROID/PARATHYROID Radiology Routine Hypothyroidism, acquired Thyroid nodule 1 Occurrences starting 02/14/2023 until 03/15/2024 [facility] Work Phone: Comment on above: 1 Occurrences starti ng 02/14/2023 until 03/15/2024 [facility] Immunizations Immunization Date Immunization Notes Care Provider Fa [facility] 08-09-2018 influenza virus vacc ine, unspecified formulation Celso Hunt MD Work Phone: [facility] 05-25-2017 pneumococcal polysaccharide vaccine, 23 valent Edel Pugh MA [facility] 04-07-2016 pneumococcal conjuga te vaccine, 13 valent Edel Pugh MA [facility] Payers Date Payer Category Payer Self-pay 2020 Private Health Insurance MMO MED ICARE SUPPLEMENT [id number] 2020 Unknown MMO MMO MEDICARE SUPPLEMENT [id number] 2020-Present [phone] [place] [id number] Indemnity [id number] 2020 Unknown [id number] 2020 Unknown [id number] 2019 Medicare MEDICARE MEDICAR E A AND B [id number] 2019-Present [phone] [address] [address] [place] [address] Medicare [id number] 2019 Medicare [id number] 2019 Medicare [id number] Unknown [id number] Unknown [id number] 2.16.840.1.842920.3.579.2. 462 Unknown [id number] 2.16.840.1.270190.3.579.2. 462 Unknown [id number] 2.16.840.1.797888.3.579.2. 462 Unknown [id number] 2.16.840.1.558025.3.579.2. 462 Unknown [id number] 2.16.840.1.414729.3.579.2. 462 Unknown [id number] 2.16.840.1.069787.3.579.2. 462 Unknown [id number] 2.16.840.1.095751.3.579.2. 462 Unknown [id number] 2.16.840.1.423649.3.579.2. 462 Unknown [id number] 2.16.840.1.491160.3.579.2. 462 Unknown [id number] 2.16.840.1.633353.3.579.2. 462 Unknown [id number] 2.16.840.1.820855.3.579.2. 462 Unknown [id number] 2.16.840.1.535228.3.579.2. 462 Unknown [id number] 2.16.840.1.150640.3.579.2. 462 Unknown [id number] 2.16.840.1.950433.3.579.2. 462 Unknown [id number] 2.16.840.1.648397.3.579.2. 462 Unknown [id number] 2.16.840.1.604374.3.579.2. 462 Unknown [id number] 2.840.1.398701.3.579.2. 462 Social History Date Type Detail Facility Start: 08-28-2014 End: 08-15-2022 Tobacco smoking status NHIS Never smoked tobacco [facility] Start: 12-08-2021 End: 06-30-2025 Alcohol intake Current non-drinker of alcohol (finding) [facility] [facility] 1950 Sex Assigned At Not on file [facility] Start: 12-26-2020 End: 08-15-2022 Exposure to SARS-CoV-2 (event) Not sure [facility] Start: 04-19-2022 End: 02-25-2024 Tobacco smoking status NHIS Unknown if ever smoked [facility] Start: 1950 Sex Assigned At Male W [facility] Start: 08-28-2014 End: 08-15-2022 Tobacco use and exposure Smokeless tobacco non-user [facility] Start: 04-04-2023 End: 10-24-2023 History of Social function [facility] Work Phone: Start: 04-04-2023 End: 10-24-2023 Tobacco use panel [facility] Work Phone: Start: 09-16-2012 Adult Depression Screening Assessment 0 [facility] Work Phone: Start: 10-21-2023 Cigarettes [facility] Start: 02-19-2025 End: 07-15-2025 Tobacco smoking status NHIS Ex-smoker (finding) [facility] Medical Equipment Procedure Code Equipment Code Equipment Origin al Text Equipment Identifier Dates Total cholecystectomy with exploration of common bile duct DRESSING,SURGICEL 4x8 FDA Start: 09-25-2022 Total cholecystectomy with exploration of common bile duct Plant polysaccharide haemostatic agent, bioabsorbable [id number] FDA Start: 09-25-2022 Total cholecystectomy with exploration of common bile duct Ligation clip, synthetic polymer, non-bioabsorbable ()[id number] FDA Start: 09-25-2022 Total cholecystectomy with exploration of common bile duct DRESSING,SURGICEL 4x8 FDA Start: 09-25-2022 Total cholecystectomy with exploration of common bile duct DRESSING,SURGICEL 4x8 FDA Start: 09-25-2022 Total cholecystectomy with exploration of common bile duct DRESSING,SURGICEL 4x8 FDA Start: 09-25-2022 Total cholecystectomy with exploration of common bile duct DRESSING,SURGICEL 4x8 FDA Start: 09-25-2022 Total cholecystectomy with exploration of common bile duct DRESSING,SURGICEL 4x8 FDA Start: 09-25-2022 Goals Date Patient Goal Desired Activity /State Functional Status Date Assessment Result Facility 10-21-2023 Functional status Ambulates;Dm r;Bathroom Privilege [facility] Work Phone: 09-26-2022 Functional status Ambulates;Bath room Privilege [facility] Work Phone: 04-13-2015 Are you deaf, or do you have serious difficulty hearing No 04/13/2015 9:05 AM Kaye Hannah LPN No [facility] 04-13-2015 Are you blind, or do you have serious difficulty seeing, even when wearing glasses No 04/13/2015 9:05 AM Kaye Hannah LPN No [facility] 04-13-2015 Do you have serious difficulty walking or climbing stairs No 04/13/2015 9:05 AM Kaye Hannah LPN No [facility] 04-13-2015 Do you have difficul ty dressing or bathing No 04/13/2015 9:05 AM Kaye Hannah LPN No [facility] 04-13-2015 Because of a physica l, mental, or emotional condition, do you have difficulty doing errands alone such as visiting a physician's office or shopping No 04/13/2015 9:05 AM EDT Kaye Miller LPN No [facility] Mental Status Date Assessment Result Facility 10-21-2023 Cognitive function Voice/Name [facility] Work Phone: 10-19-2023 Cognitive function Voice/Name [facility] Work Phone: 09-26-2022 Cognitive function Voice/Name [facility] Work Phone: 04-19-2022 Cognitive function Level Of Cons ciousness Awake;Alert;Follows Commands [facility] Work Phone: 04-13-2015 Because of a physica l, mental, or emotional condition, do you have serious difficulty concentrating, remembering, or making decisions No 04/13/2015 9:05 AM EDT Kaye Miller LPN No [facility] Clinical Notes 12-22-2006 to 08-19-2025 Note Date & Type Note Facility 08-19-2025 Note [facility] Medical Records Department [address] [place] [address] History Physical Exam 08/19/25 0904 MR#: [id number] Acct: [id number] Name: TRACI DELA CRUZ JrSyl Rep #: [id number] : 1950 75 From: Anita Sewell PCP: Dr. Celso Hunt MD Status:ADM IN Location: [place] [address] Documented by User: JAYA Muhammad 08/19/25 10:50 HPI - General General Date of Admission: 08/18/25 Date of Service: 08/19/25 Chief Complaint: Debility with lower extremity weakness. HPI Narrative TRACI DELA CRUZ, is a 75 M who presented to [facility] emergency department on 08/14/2025 with a complaint of worsening weakness and difficulty with ambulation x 3 days prior to presentation to the emergency department. He was found to have a slight elevation in his WBCs at 13 and a total bilirubin of 1.3. CT scan in the emergency department was negative for any acute processes. Patient has history of previous CVAs he was last hospitalized in October 2023 for CVA, , A-fib and on Eliquis, Parkinson's disease, hypertension, bladder cancer with resection on 03/20/2024 And hypothyroidism. He did have an echo in October 2023 which showed stage I diastolic dysfunction with a LVEF of 60%. He has been living alone. It was reported that overnight the patient did have some confusion in which he removed all of his clothing and was laying on top of the sheets naked. Nursing staff was able to intervene and assisted in getting his close back on. Patient was cooperative during this time. He does endorses that he does still drive, but not at night because of his vision. He wears corrective lenses. I did review the patient's labs and noted hemoglobin to be 12.9 hematocrit 38.4. His BUN is very slightly elevated at 25 but his creatinine and GFR are within normal limits. BUN/creatinine ratio was slightly elevated at 107. He does have an elevated magnesium at 2.3, AST is slightly elevated at 47 and his albumin is decreased at 3.1. Dietitian consult has been ordered. Patient states that he follows with Sade Calero in [place] for his Parkinson's. He is on carbidopa/ levodopa for management. Patient states that he does have a history of chronic constipation and states he only has bowel movements approximately 2 times per week. Bowel regiment has been ordered. I did note him to have significant bilateral lower extremity pitting edema. The patient is on Norvasc which may be contributing to his peripheral edema. I did have a discussion with Dr. Pichardo and decision was made to change the patient's Norvasc to hydrochlorothiazide 12.5 mg and continue to monitor blood pressures and kidney function. He currently has bilateral lower extremities wrapped with Rosy wrap's. Patient did have a UA while he was being treated for his medical complaints which did show some white blood cells. He was given 2 doses of Rocephin and started on cefdinir. Patient did have a culture sent which did not show any growth on the final report. Will discontinue the cefdinir. Patient denies pain or shortness of breath today. He is alert and oriented x 3. He states that he does not have any children but relies on neighbors or his sister Grupo for assistance when needed. Diet: Regular diet, nursing to monitor I's and O's.. Patient appears to have sundowning tendencies. Continue to monitor with alarms in place. [facility] Medical History (Updated 08/19/25 @ 10:01 by JAYA Muhammad) Loss of hearing Wears glasses Cancer Gout Thyroid disease Bladder disease High cholesterol Shortness of breath on exertion Former smoker History of echocardiogram Cardiology follow-up encounter History of atrial fibrillation HTN (hypertension) Hypothyroid Parkinson disease Home Medications ???Medication ???Instructions ???Recorded ???Last Taken ???Type amlodipine 10 mg tablet 10 tab PO DAILY blood pressure 03/0608/13/25 History carbidopa 25 mg-levodopa 100 mg 1 tab PO TID parkinsons 04/19/22 1 History tablet allopurinol 100 mg tablet 100 mg PO DAILYCM Gout 60 days #60 10/21/23 Unknown Rx tabs lisinopril 5 mg tablet 5 mg PO DAILY blood pressure 60 Unknown Rx days #60 tabs polyethylene glycol 3350 17 17 g PO DAILY constipation #119 08/11/25 Rx gram/dose oral powder (Miralax) grams apixaban 5 mg tablet (Eliquis) 5 mg PO DAILY heart 08/14/2508/14 History levothyroxine 100 mcg tablet 100 mcg PO DAILY disorder of 08/1408/13/25 History thyroid gland metoprolol succinate 50 mg 50 mg PO DAILY heart 08/14/2507/18 History tablet,extended release 24 hr cefdinir 300 mg capsule 300 mg PO BID Antibiotic 08/18/25 Unknown History Allergy/AdvReac Type Severity Reaction Status Date / Time No Known Allergies Allergy Verified (more content not included)... [facility] 08-18-2025 Note [facility] Medical Records Department [address] [place] [address] Discharge Summary 08/18/25 1443 MR#: [id number] Acct: [id number] Name: TRACI DELA CRUZ Rep #: [id number] : 1950 75 From: Sheila Ayala MD PCP: Dr. Celso Hunt MD Status:ADM IN [facility] Prov[facility] Date of Admission: 08/16/25 Date of Discharge: 08/18/25 Primary Care Physician: Dr. Celso Hunt MD Reason For Visit: WEAKNESS Diagnosis Discharge Diagnosis (1) Generalized weakness: Status: Acute Code(s): R53.1 - Weakness (2) UTI (urinary tract infection): Status: Acute Code(s): N39.0 - Urinary tract infection, site not specified Plan #Generalized weakness suspect 2/2 to UTI #Abnormal UA #Hypertension # Parkinson's disease # History of bladder cancer #Hypothyroidism #Paroxysmal Atrial Fibrillation Medications at Discharge Home Medications amlodipine 10 mg tablet 10 tab PO DAILY blood pressure 04/19/22 carbidopa 25 mg-levodopa 100 mg tablet 1 tab PO TID parkinsons 04/19/22 allopurinol 100 mg tablet 100 mg PO DAILYCM 60 days #60 tabs 10/21/23 lisinopril 5 mg tablet 5 mg PO DAILY blood pressure 60 days #60 tabs 10/21/23 polyethylene glycol 3350 17 gram/dose oral powder (Miralax) 17 g PO DAILY constipation #119 grams 06/11/25 apixaban 5 mg tablet (Eliquis) 5 mg PO DAILY heart 08/14/25 levothyroxine 100 mcg tablet 100 mcg PO DAILY disorder of thyroid gland 08/14/25 metoprolol succinate 50 mg tablet,extended release 24 hr 50 mg PO DAILY heart 08/14/25 cholecalciferol (vitamin D3) 125 mcg (5,000 unit) capsule 125 mcg PO DAILY #0 caps 08/18/25 Hospital Course Summary of Care Provided Minutes Spent on Discharge: 27 Hospital Course: 75-year-old male history of Parkinson's, A-fib, hypothyroidism, hypertension, gout presented to [facility] ED 08/14/2025 due to generalized weakness, unsteady on feet, difficulty with ambulation. In the ED labs notable for a white count of 13 however workup otherwise benign and CT brain unremarkable, no infectious signs or symptoms at the time but given his worsened debility hospitalist contacted for admission. During admission it was noted that patient had discolored urine and UA was reobtained, suggestive of early UTI given that with temp of 100.2 and slightly elevated white count as well as generalized weakness patient started empirically on Rocephin and did begin to have improvement. On day of discharge no new or acute complaints, patient excepted to inpatient med rehab and was transferred there in stable condition. Physical Exam Narrative General: Alert, oriented, no apparent distress HEENT: Atraumatic, normocephalic Eyes: Anicteric, normal conjunctiva, extraocular movements grossly intact Neck: Supple Respiratory: Clear to auscultation bilaterally, normal respiratory effort Cardiovascular: Regular rate GI: Soft, nontender, nondistended Extremities: Trace lower extremity pitting edema up to the level of shins, largely unchanged Musculoskeletal: Moving all extremities Neuro: No overt focal neurological deficits Skin: No rashes appreciated Psych: Cooperative Weight / BMI Weight Weight: 88.451 kg Body Mass Index (BMI) 27.9 ABG / Lab / Microbiology Data 08/18/25 05:39 08/18/25 05:39 Laboratory: Laboratory Results - last 24 hr 08/18/25 05:39: WBC 10.7, RBC 5.07, Hgb 13.7, Hct 41.1, MCV 81.1, MCH 27.0, MCHC 33.3, RDW Std Deviation 38.7, RDW Coeff of Navneet 13.2, Plt Count 293, MPV 9.8, Immature Gran % (Auto) 0.500, Neut % (Auto) 79.7 H, Lymph % (Auto) 8.9 L, Greer % (Auto) 10.1 H, Eos % (Auto) 0.3, Baso % (Auto) 0.5, A bsolute Neuts (auto) 8.6 H, Absolute Lymphs (auto) 0.96, Nucleated RBC % 0, Sodium 134, Potassium 3.8, Chloride 99, Carbon Dioxide 24.8, Anion Gap 11, BUN 21 H, Creatinine 0.84, Estim Creat Clear Calc 82.48, Est GFR (MDRD) Non-Af 90, BUN/Creatinine Ratio 24.9 H, Glucose 102 H, Calcium 8.8 Microbiology: Microbiology 08/14/25 17:15 Mucosa - Nasopharyngeal Respiratory Panel (PCR) - Final D/C Instructions DC O2, CPAP, BIPAP Needs Home O2 Discharge instructions: No Meaningful Use Info Meaningful Use Meaningful Use Diagnoses (Choose all that apply): None applicable Discharge Plan Admission Admit Date/Time: 08/16/25 14:45 Primary Reason for Your Visit: Generalized weakness, UTI Attending Provider: Sheila Ayala Primary Care Provider: Celso Hunt Consulting Providers: Carlos Avalos; Angelica Avila Instructions Patient Instructions: ED Fall Prevention Additional Instructions / Restrictions: DISCHARGE INSTRUCTIONS PLEASE READ *Please take this with you to your next doctors appointment* - You will be discharged on cefdinir 300 mg twice daily for 5 more days starting 08/19/25 - Your urine culture results have not finaliz (more content not included)... [facility] 07-15-2025 Discharge summary [facility] 07-15-2025 Discharge summary Note Date/Time July 15, 2025 2:30pm [facility] Medical Records Department [address] [place] [address] Emergency Department Summary 07/15/25 MR#: [id number] Acct: [id number] Name: TRACI DELA CRUZ Jr. Rep #:[id number] : 1950 75 From: Murray Garces MD PCP: Dr. Celso Hunt MD Status:DEP E R Location: ED HPI History of Present Illness Chief Complaint: Nosebleed Narrative Narrative: 75-year-old male past medical history of Parkinson's presents with epistaxis. It is mainly from his left nares. It started this morning at around 1130, approximately 3 hours ago. It stopped on its own. He relates history that about a week ago, he had cauterization done by otolaryngology for nosebleed and was doing well. He had stopped his Eliquis but restarted it. Went to urgent care today. They sent him in with concern for TIA versus confusion as they noticed that he had issues on the wrong feet. Patient states that he does this on occasion. Once he realized it he changed them immediately. He denies any headache, no fevers or chills, no nausea or vomiting, no other symptoms. No difficulty breathing. [facility] Medical History Loss of hearing Wears glasses Cancer Gout Thyroid disease Bladder disease High cholesterol Shortness of breath on exertion Former smoker History of echocardiogram Cardiology follow-up encounter History of atrial fibrillation HTN (hypertension) Hypothyroid Parkinson disease Home Medications ?Medication ?Instructions ?Recorded ?Last Taken ?Type amlodipine 10 mg tablet 10 tab PO DAILY blood pressu re 04/19/22 10/19/23 History carbidopa 25 mg-levodopa 100 mg 1 tab PO TID parkinson s 04/19/22 10/19/23 History tablet levothyroxine 50 mcg tablet 50 mcg PO DAILY thyroid 10/19/23 History triamterene 75 1 tab PO DAILY blood pressur e 04/19/22 Unknown History mg-hydrochlorothiazide 50 mg tablet allopurinol 100 mg tablet 100 mg PO DAILYCM 60 days #6 0 tabs 10/21/23 Unknown Rx lisinopril 5 mg tablet 5 mg PO DAILY 60 days #60 ta bs 10/21/23 Unknown Rx apixaban 5 mg tablet (Eliquis) 2.5 mg (1/2 x 5 mg) PO BID 60 days 02/25/24 03/16/24 Rx #120 tabs ciprofloxacin HCl 500 mg tablet 500 mg PO BID #10 tabs 03/20/24 Unknown Rx finasteride 5 mg tablet (Proscar) 5 mg PO DAILY #90 ta bs 03/20/24 Unknown Rx tamsulosin 0.4 mg capsule (Flomax) 0.4 mg PO DAILY #90 caps 03/20/24 Unknown Rx polyethylene glycol 3350 17 17 g PO DAILY #119 grams 0 06/11/25 Unknown Rx gram/dose oral powder (Miralax) sennosides 8.6 mg-docusate sodium 1 tab-cap PO DAILY 1 4 days #14 tabs 06/11/25 Unknown Rx 50 mg tablet (Senna with Docusate Sodium) Allergy/AdvReac Type Severity Reaction Status Date / Time No Known Allergies Allergy Verified 07/15/25 12:43 Surgical History Status post laparoscopic cholecystectomy Social History Smoking Status: Former smoker ROS ROS ED ROS Narrative Review of systems positive for epistaxis from left nares, resolved. Reported confusion with history of Parkinson's. Denies headache, neck pain, nausea or vomiting, no other bleeding diathesis. EXAM Physical Exam Narrative Exam Narrative: Afebrile. Vital signs noted. Nontoxic-appearing. Cardiovascular examination regular rate and rhythm. Lungs are clear to auscultation bilaterally. Abdomen is soft and nontender. Neurological examination shows tremor of bilateral upperextremities consistent with Parkinson's. He is able to ambulate to the cot, andtransfer from chair to standing and standing to the cot. He does this independently. Dried blood on left nares, no posterior pharynx hemorrhage. No other noted bleeding diathesis. Neurological examination shows him to be awake,alert, oriented to person, place, and time as well as current events. Const Vital Signs: 07/15/25 12:44 07/15/25 14:30 Temperature 97.5 F L 98.1 F Temperature Source Temporal Pulse Rate 87 71 Respiratory Rate 18 16 Blood Pressure 135/91 H 112/59 L Blood Pressure Mean 105 76 Pulse Ox 98 100 Oxygen Delivery Method Room Air MDM MDM MDM Narrative Medical decision making narrative: Medical screening exam is negative for any acute process. Regarding the dried blood in his nares. I offered to perform nasal packing, but patient declines and states that his nose to stop bleeding. I considered laboratory work to check for anemia, but through shared decision making patient declined. I also offered to do lab work to look for dehydration. However, the patient is awake, alert, and oriented. I do not feel stroke team is indicated because there is nodebilitating deficit and his NIH stroke scale is essentially 0. Although he hashistory of acute CVA, he is on Eliquis again and he is not a candidate for any TNK. Patient does not want CT of the brain performed. I have low suspicion alvina intracranial hemorrhage as he does not have any headache. As his medical screening exam is negative I feel he can be discharged to follow-up. Return instructions to the emergency department were reviewed. Disposition is discharged home in stable condition. History & Record Review Discussion w/independent historian: Patient Additional record(s) reviewed:: Prior ED visit Discharge Plan Triage Chief Complaint: Nosebleed ED Provider: Murray Garces Dx/Rx/DC Orders Clinical Impression: Confusion, Epistaxis, Encounter for medical screening examination, History of Parkinson's disease Instructions: ED Confusion, ED Epistaxis (Adult), ED Screening Exam Medical Nonurgent Prescriptions: No Action amlodipine 10 mg tablet 10 tab PO DAILY Patient Comments: TAKE 1 TABLET BY MOUTH EVERY DAY levothyroxine 50 mcg tablet 50 mcg PO DAILY Patient Comments: TAKE 1 TABLET BY MOUTH ONCE DAILY. TAKE ON EMPTY STOMACH. FOR THYROID. triamterene-hydrochlorothiazid 75-50 mg tablet 1 tab PO DAILY Patient Comments: TAKE 1 TABLET BY MOUTH EVERY DAY carbidopa-levodopa 25-100 mg tablet 1 tab PO TID Patient Comments: TAKE 1 TABLET BY MOUTH THREE TIMES A DAY allopurinol 100 mg Tablet 100 mg PO DAILYCM 60 Days Qty: 60 0RF lisinopril 5 mg Tablet 5 mg PO DAILY 60 Days Qty: 60 0RF Eliquis 5 mg Tablet 2.5 mg PO BID 60 Days Qty: 120 0RF polyethylene glycol 3350 [Miralax] 17 gram/dose powder 17 g PO DAILY Qty: 119 0RF sennosides-docusate sodium [Senna with Docusate Sodium] 8.6-50 mg tablet 1 tab-cap PO DAILY 14 Days Qty: 14 0RF tamsulosin [Flomax] 0.4 mg capsule 0.4 mg PO DAILY Qty: 90 3RF finasteride [Proscar] 5 mg tablet 5 mg PO DAILY Qty: 90 3RF ciprofloxacin HCl 500 mg tablet 500 mg PO BID Qty: 10 0RF Primary Care Provider: Celso Hunt Referrals: Kirill Hameed MD [Med Staff - Active Staff, Ear Nose Throat (ENT)] - 3-5 Days ifnot improving Celso Hunt MD [Primary Care Provider, Medical] - 3-5 Days if not improving Activity Restrictions/Additional Instructions: Return with increased bleeding from your nose, new or worsening symptoms Print Language: Prydeinig Disposition Disposition: Home, Self Care Discharge Date/Time: 07/15/25 14:30 What to do if you have Problems For any increased pain, shortness of breath, bleeding, nausea or vomiting, chestpain, or any unexpected problems, contact your Primary Care Provider. Call [facility] ([phone]) or report to the closest Emergency Room. Call 911 if necessary. 07/15/251937 <Electronically signed by Murray Garces MD> Cosigner Signature (if applicable): CC: Dr. Celso Hunt MD ~ Signed [facility] Work Phone: [phone]) 462-163109-30-2025 NoteHNO ID: [id number] Author: ANNETTE AVILES APRN.MANAGER OF SECURITY Service: ? Author Type: Nurse Practitioner Type: [...] both refused. Family member will take him now.[facility]09-15-2025 Note* Addendum Note - Yanira Redd MD - 06/30/2025 6:28 PM EDTAddended by: YANIRA REDD on: 06/30/2025 06:28 PM Modules accepted: Orders [facility]09-15-2025 Miscellaneous Notes* Addendum Note - Yanira Redd MD - 06/30/2025 6:28 PM EDTAddended by: YANIRA REDD on: 06/30/2025 06:28 PM Modules accepted: Orders * Telephone Encounter - Yanira Redd MD - 06/30/2025 6:26 PM EDT No since it resolves within 2 to 3 minutes. I have placed an order for CBC which he can proceed to the lab to check if his nose bleeds continue. Follow-up with his PCP and ENT. * Telephone Encounter - Giuliana Elam RN - 06/30/2025 3:06 PM EDT Pt called stating that he has been [...] how to apply pressure if bleeding does recur.We discussed she can use Afrin prior to [...] of care. This note was generated using [employer] software. It may contain errors in wording, punctuation,or spelling. DENIA: 02/26/[address] Redd ASSESSMENT/PLAN: 1. New onset atrial fibrillation (HCC) - ICD9: 427.31, ICD10: I48.91 [id number] 5. He reports heart rates in the 50s at home. Regular rhythm on exam. - On Eliquis 5 mg p.o. bid. Denies any bleeding or falls or trauma. - On metoprolol 50 mg po daily. Tolerating well. - He would like to f/u in 6 months, sooner if medically necessary. [facility] Telephone encounter Note * Telephone Encounter - Yanira Redd MD - 06/30/2025 6:26 PM EDT No since it resolves within 2 to 3 minutes. I have placed an order for CBC which he can proceed to the lab to check if his nose bleeds continue. Follow-up with his PCP and ENT. [facility]09-15-2025 Telephone encounter Note* Telephone Encounter - Giuliana Elam, RN - 06/30/2025 3:06 PM EDT Pt called stating that he has been [...] how to apply pressure if bleeding does recur.We discussed she can use Afrin prior to [...] of care. This note was generated using [employer] software. It may contain errors in wording, punctuation,or spelling. DENIA: 02/26/[address] Redd ASSESSMENT/PLAN: 1. New onset atrial fibrillation (HCC) - ICD9: 427.31, ICD10: I48.91 [id number] 5. He reports heart rates in the 50s at home. Regular rhythm on exam. - On Eliquis 5 mg p.o. bid. Denies any bleeding or falls or trauma. - On metoprolol 50 mg po daily. Tolerating well. - He would like to f/u in 6 months, sooner if medically necessary. [facility]09-15-2025 NoteHNO ID: [id number] Author: JOSE ANTONIO CHASE APRN.MANAGER OF SECURITY Service: ? Author Type: Nurse Practitioner Type: Progress Notes Filed: 06/30/2025 14:46 Note Text: URGENT CARE RUBY Dela Cruz Jr. is a 75 year old male. [...] of care. This note was generated using [employer] software. It may contain errors in wording, punctuation, or spelling. Jose Antonio Chase APRN.MANAGER OF SECURITY History and Record Review Clinical information obtained from an independent historian. History obtained from or confirmed by: parent. External record(s) reviewed: prior outpatient record. Disposition The patient was discharged. OTC Medications were advised: [facility] History of Present illness Narrative* Jose Antonio Chase APRN.MANAGER OF SECURITY - 06/30/2025 1:42 PM EDT URGENT CARE RUBY Dela Cruz Jr. is a 75 year old male. [...] Neurological: Negative for dizziness, seizures, syncope, weakness, light- headedness, numbness and headaches. Psychiatric/Behavioral: Negative for confusion. Objective BP 124/70 Pulse 110 Temp 36.8 C (98.3 F) Resp 16 Wt 88.3 kg (194 lb 10.7 oz) SpO2 97% BMI 27.15 kg/m Hr 93 Physical Exam Constitutional: Appearance: Normal [...] how to apply pressure if bleeding does recur.We discussed she can use Afrin prior to [...] of care. This note was generated using [employer] software. It may contain errors in wording, punctuation,or spelling. Jose Antonio Chase APRN.ALIVIA History and Record Review Clinical information obtained from an independent historian. History obtained from or confirmed by:parent. External record(s) reviewed: prior outpatient record. Disposition The patient was discharged. OTC Medications were advised: Procedures documented in this encounterAd[facility]-2025 NoteHNO ID: [id number] Author: MANUELA PHAM APRN.ALIVIA Service: ? Author Type: Nurse Practitioner [...] due to dental issues. - Previously used rqxn-kug-ovkevja stool softeners and laxatives with limited success. [...] suppositories, including expected onset of action and t (more content not included)...[facility]09[facility] History of Present illness Narrative* Manuela Pham APRN.MANAGER OF SECURITY - 06/20/2025 9:51 AM EDT This is a 75 year old male who presents today with: The patient is a 75-year-old male with Parkinson disease, presenting for evaluation of recurrent severe constipation requiring manual disimpaction and enemas. HISTORY OF PRESENT ILLNESS: Constipation: - Chronic constipation with bowel movements typically once a week, occasionally twice, rarely threetimes a week. - Recent episodes of severe [...] due to dental issues. - Previously used [id number]-fnvfvcj stool softeners and laxatives with limited success. [...] painful defecation, (-) nausea, (-) vomiting, (-) abdominalpain Neurological: (+) word-finding difficulty, (+) tremor EXAM: BP 118/82 Pulse 86 Wt 87.1 kg (192 lb) SpO2 96% BMI 26.78 kg/m PHYSICAL EXAM: General Appearance: Well appearing, alert, [...] as needed for worsening/no improvement. Manuela Pham APRN.MANAGER OF SECURITY Recording using [employer] software for draft documentation of the visit was discussed with the patient/authorized sales representative door to door; all questions welcomed and answered. Patient/authorized sales representative door to door agreed to proceed [1] Social History Tobacco Use Smoking status: Never Smokeless tobacco: Never Vaping Use Vaping status: Never Used Substance Use Topics Alcohol use: No Drug use: No documented in this encounterAdams [facility]09-03-2025 Instructions* Patient Instructions* Manuela Pham APRN.CNP - 06/18/2025 1:54 PM EDT Increase the miralax to twice daily until stooling more regularly. Can also try the suppositories. If no improvement/worsening, let us know. documented in this encounterAd[facility]08-27-2025 Discharge summary [facility] Medical Records Department [address] [place] [id number] Emergency Department Summary 06/11/25 MR#: [id number] Acct: [id number] Name: TRACI DELA CRUZ Jr. Rep #:[id number] : 1950 75 From: Ruiz carmona DO PCP: Dr. Celso Hunt MD Status:REG E R Location: ED HPI History of Present Illness Chief Complaint: Constipation Narrative Narrative: Chief complaint and HPI: Constipation. 75-year-old male with past medical history of CVA on Eliquis, Parkinson's disease, HTN who presents for evaluation of constipation. Patient states that he intermittently suffers from constipation secondary to his Parkinson's disease. He does not take a daily bowel regiment. Patient states he has not had a bowel movement for the past week. He denies any fever, chills, chest pain, shortness of breath, abdominal pain, dysuria, diarrhea. Review of systems: See HPI Medications: As listed on the chart Allergies: As listed on the chart PFSH: Per chart Vital signs: As listed on the chart. Reviewed. Physical exam: Gen: A&O x3, NAD Head: Normocephalic, atraumatic Eyes: No sclera icterus, conjunctiva clear ENT: Moist mucous membranes Neck: Trachea midline CV: RRR, no murmurs, no peripheral edema Resp: Lungs CTA BL, no w/r/c GI: Abd soft, non-distended, non-tender, no r/r/g Rectal: Normal external examination except for dried bright red blood around theanus, no evidence of hemorrhoids or fissures. Normal tone and sensation. Hard brown stool in the rectal vault. I was able to manually disimpact a lot of the stool. Stool does have some bright red blood streaking. Musc: Full ROM, no deformity Skin: Warm, dry Neuro: Alert, oriented, grossly intact, sensation intact Psych: Cooperative, appropriate mood and affect [facility] Medical History (Updated 06/11/25 @ 22:[address] Ruiz Swann, DO) Loss of hearing Wears glasses Cancer Gout Thyroid disease Bladder disease High cholesterol Shortness of breath on exertion Former smoker History of echocardiogram Cardiology follow-up encounter History of atrial fibrillation HTN (hypertension) Hypothyroid Parkinson disease Home Medications ?Medication ?Instructions ?Recorded ?Last Taken ?Type amlodipine 10 mg tablet 10 tab PO DAILY blood pressu re 04/19/22 10/19/23 History carbidopa 25 mg-levodopa 100 mg 1 tab PO TID parkinson s 04/19/22 10/19/23 History tablet levothyroxine 50 mcg tablet 50 mcg PO DAILY thyroid 10/19/23 History triamterene 75 1 tab PO DAILY blood pressur e 04/19/22 Unknown History mg-hydrochlorothiazide 50 mg tablet allopurinol 100 mg tablet 100 mg PO DAILYCM 60 days #6 0 tabs 10/21/23 Unknown Rx lisinopril 5 mg tablet 5 mg PO DAILY 60 days #60 ta bs 10/21/23 Unknown Rx apixaban 5 mg tablet (Eliquis) 2.5 mg (1/2 x 5 mg) PO BID 60 days 02/25/24 03/16/24 Rx #120 tabs ciprofloxacin HCl 500 mg tablet 500 mg PO BID #10 tabs 03/20/24 Unknown Rx finasteride 5 mg tablet (Proscar) 5 mg PO DAILY #90 ta bs 03/20/24 Unknown Rx tamsulosin 0.4 mg capsule (Flomax) 0.4 mg PO DAILY #90 caps 03/20/24 Unknown Rx polyethylene glycol 3350 17 17 g PO DAILY #119 grams 0 06/11/25 Unknown Rx gram/dose oral powder (Miralax) sennosides 8.6 mg-docusate sodium 1 tab-cap PO DAILY 1 4 days #14 tabs 06/11/25 Unknown Rx 50 mg tablet (Senna with Docusate Sodium) Allergy/AdvReac Type Severity Reaction Status Date / Time No Known Allergies Allergy Verified 06/11/25 18:32 Surgical History Status post laparoscopic cholecystectomy Social History Smoking Status: Former smoker EXAM Physical Exam Const Vital Signs: 06/11/25 18:31 06/11/25 20:30 Temperature 98.7 F Temperature Source Oral Pulse Rate 79 100 Respiratory Rate 16 18 Blood Pressure 115/86 H 130/75 H Blood Pressure Mean 95 93 Pulse Ox 98 98 Oxygen Delivery Method Room Air MDM MDM MDM Narrative Medical decision making narrative: 75-year-old male with past medical history of CVA on Eliquis, Parkinson's disease, HTN who presentsfor evaluation of constipation. Patient states that he intermittently suffers from constipation secondary to his Parkinson's disease. He does not take a daily bowel regiment. Has not had a bowel movementin 1 week. See physical exam findings. I was able to manually disimpact some of the stool in therectal vault. Patient did have some streaking of bright redblood. Given the bright red blood, we will performed basic labs with CT abdomenand pelvis. Differential diagnosis includes but is not limited to constipation,electrolyte abnormality, GI bleed, colitis. CBC without leukocytosis or anemia. BMP unremarkable. Lactic acid unremarkable. CT abdomen pelvis shows small esophageal hiatal hernia. Hepatomegaly. Fecal retention in the colon consistent with constipation. Bilateral inguinal hernias. Patient's symptoms are likely secondary to constipation from Parkinson's disease. I suspect that the bright red blood streaking is secondary to the constipation as well. Soapsuds enema ordered. Patienthad some relief. Recommended drinking plenty of fluids. Given prescription for docusate senna and MiraLAX as a bowel regiment. Follow-up with PCP. He confirmed understanding the plan. Return precautions explained. They stable to discharge home. Impression: 1. Constipation 2. History of constipation with Parkinson's disease Lab Data Labs: Laboratory Results - last 24 hr 06/11/25 19:31 WBC 10.7 RBC 5.34 Hgb 15.1 Hct 44.4 MCV 83.1 MCH 28.3 MCHC 34.0 RDW Std Deviation 39.6 RDW Coeff of Navneet 13.2 Plt Count 213 MPV 10.4 Immature Gran % (Auto) 0.400 Neut % (Auto) 72.5 H Lymph % (Auto) 13.2 L Greer % (Auto) 11.6 H Eos % (Auto) 1.4 Baso % (Auto) 0.9 Absolute Neuts (auto) 7.8 H Absolute Lymphs (auto) 1.41 Nucleated RBC % 0 Sodium 137 Potassium 3.9 Chloride 99 Carbon Dioxide 25.6 Anion Gap 13 BUN 27 H Creatinine 1.19 Est GFR (MDRD) Non-Af 63 BUN/Creatinine Ratio 22.5 H Glucose 89 Lactic Acid < 1.0 Calcium 9.4 Radiography Diagnostic Testing: Clinical Impression(s) from Imaging Studies Abdomen/Pelvis CT 06/11/25 19:12 IMPRESSION: 1. Small esophageal hiatal hernia. 2. Hepatomegaly with fatty infiltration. 3. Fecal retention in the colon consistent with constipation. 4. Inguinal hernias, bilaterally. 5. Degenerative changes lumbar spine as described. Reading Location: [facility] Discharge Plan Triage Chief Complaint: Constipation ED Provider: Ruiz Swann Dx/Rx/DC Orders Clinical Impression: Constipation Instructions: Treating Constipation, ED Constipation (Adult) Prescriptions: New polyethylene glycol 3350 [Miralax] 17 gram/dose powder 17 g PO DAILY Qty: 119 0RF sennosides-docusate sodium [Senna with Docusate Sodium] 8.6-50 mg tablet 1 tab-cap PO DAILY 14 Days Qty: 14 0RF No Action amlodipine 10 mg tablet 10 tab PO DAILY Patient Comments: TAKE 1 TABLET BY MOUTH EVERY DAY levothyroxine 50 mcg tablet 50 mcg PO DAILY Patient Comments: TAKE 1 TABLET BY MOUTH ONCE DAILY. TAKE ON EMPTY STOMACH. FOR THYROID. triamterene-hydrochlorothiazid 75-50 mg tablet 1 tab PO DAILY Patient Comments: TAKE 1 TABLET BY MOUTH EVERY DAY carbidopa-levodopa 25-100 mg tablet 1 tab PO TID Patient Comments: TAKE 1 TABLET BY MOUTH THREE TIMES A DAY allopurinol 100 mg Tablet 100 mg PO DAILYCM 60 Days Qty: 60 0RF lisinopril 5 mg Tablet 5 mg PO DAILY 60 Days Qty: 60 0RF Eliquis 5 mg Tablet 2.5 mg PO BID 60 Days Qty: 120 0RF tamsulosin [Flomax] 0.4 mg capsule 0.4 mg PO DAILY Qty: 90 3RF finasteride [Proscar] 5 mg tablet 5 mg PO DAILY Qty: 90 3RF ciprofloxacin HCl 500 mg tablet 500 mg PO BID Qty: 10 0RF Primary Care Provider: Celso Hunt Referrals: Celso Hunt MD [Primary Care Provider] - 3-5 Days Activity Restrictions/Additional Instructions: Follow-up with your primary care physician. Return back to the ED if symptoms change or worsen. Drink plenty of fluids Print Language: Prydeinig Disposition Disposition: Home, Self Care What to do if you have Problems For any increased pain, shortness of breath, bleeding, nausea or vomiting, chestpain, or any unexpected problems, contact your Primary Care Provider. Call [facility] ([phone]) or report tothe closest Emergency Room. Call 911 if necessary. 06/11/252225 Cosigner Signature (if applicable): CC: Dr. Celso Hunt MD ~ Signed [facility]08-27-2025 Radiology Diagnostic study note [facility] Imaging Services [address] [place] [address] [id number] Abdomen/Pelvis W IV Cont ONLY MR#: [id number] Acct: [id number] Name: TRACI DELA CRUZ Jr. Rep #: [id number] : 1950 M 75 From: Nuzhat Rockwell MD PCP: Dr. Celso Hunt MD Status: REG E R Study:Abdomen/Pelvis W IV Cont ONLY Date of E xam: 06/11/25 Exam# [id number] Ordering Dr: Ruiz Purvis DO EXAM: CT Abdomen and Pelvis With Intravenous Contrast CLINICAL INDICATION: CONSTIPATION TECHNIQUE: Axial computed tomography images of the abdomen and pelvis with intravenous contrast. This CT exam was performed using one or more of the following dose reduction techniques: automated exposure control, adjustment of the mA and/or kV according to patient size, and/or use of iterative reconstruction technique. COMPARISON: CT Abdomen Pelvis dated 02/25/2024 FINDINGS: LUNG BASES: Unremarkable. No mass. No consolidation. HEART: Mild cardiomegaly. MEDIASTINUM: Small esophageal hiatal hernia. ABDOMEN: LIVER: Hepatomegaly with fatty infiltration. GALLBLADDER AND BILE DUCTS: Unremarkable. No calcified stones. No ductal dilation. PANCREAS: Unremarkable. No mass. No ductal dilation. SPLEEN: Unremarkable. No splenomegaly. ADRENALS: Unremarkable. No mass. KIDNEYS AND URETERS: Unremarkable. No solid mass. No hydronephrosis. STOMACH AND BOWEL: Fecal retention in the colon consistent with constipation. No obstruction. No mucosal thickening. PELVIS: APPENDIX: No findings to suggest acute appendicitis. BLADDER: Unremarkable. No mass. REPRODUCTIVE: Unremarkable as visualized. ABDOMEN and PELVIS: INTRAPERITONEAL SPACE: Unremarkable. No free air. No significant fluid collection. BONES/JOINTS: Degenerative disc disease throughout the lumbar spine. Degenerative facet arthropathythroughout the lumbar spine, most prominent in the lower lumbar spine. No acute fracture. No dislocation. SOFT TISSUES: Inguinal hernias, bilaterally. VASCULATURE: Unremarkable. No abdominal aortic aneurysm. LYMPH NODES: Unremarkable. No enlarged lymph nodes. CT/Abdomen/Pelvis W IV Cont ONLY IMPRESSION: 1. Small esophageal hiatal hernia. 2. Hepatomegaly with fatty infiltration. 3. Fecal retention in the colon consistent with constipation. 4. Inguinal hernias, bilaterally. 5. Degenerative changes lumbar spine as described. Reading Location: [facility] CC: Dr. Ruiz Swann DO; Dr. Celso Hunt MD ~ [employer] Remittance Clerk: Signed [facility]08-27-2025 Discharge summary Author Ruiz Swann [facility] Note Date/Time June 11, 2025 10 :26pm [facility] Medical Records Department [address] [place] [address] Emergency Department Summary 06/11/25 MR#: [id number] Acct: [id number] Name: TRACI DELA CRUZ Rep #:[id number] : 1950 75 From: Ruiz carmona DO PCP: Dr. Celso Hunt MD Status:REG E R Location: ED HPI History of Present Illness Chief Complaint: Constipation Narrative Narrative: Chief complaint and HPI: Constipation. 75-year-old male with past medical history of CVA on Eliquis, Parkinson's disease, HTN who presents for evaluation of constipation. Patient states that he intermittently suffers from constipation secondary to his Parkinson's disease. He does not take a daily bowel regiment. Patient states he has not had a bowel movement for the past week. He denies any fever, chills, chest pain, shortness of breath, abdominal pain, dysuria, diarrhea. Review of systems: See HPI Medications: As listed on the chart Allergies: As listed on the chart PFSH: Per chart Vital signs: As listed on the chart. Reviewed. Physical exam: Gen: A&O x3, NAD Head: Normocephalic, atraumatic Eyes: No sclera icterus, conjunctiva clear ENT: Moist mucous membranes Neck: Trachea midline CV: RRR, no murmurs, no peripheral edema Resp: Lungs CTA BL, no w/r/c GI: Abd soft, non-distended, non-tender, no r/r/g Rectal: Normal external examination except for dried bright red blood around theanus, no evidence of hemorrhoids or fissures. Normal tone and sensation. Hard brown stool in the rectal vault. I was able to manually disimpact a lot of the stool. Stool does have some bright red blood streaking. Musc: Full ROM, no deformity Skin: Warm, dry Neuro: Alert, oriented, grossly intact, sensation intact Psych: Cooperative, appropriate mood and affect [facility] Medical History (Updated 06/11/25 @ 22:[address] Ruiz Swann, DO) Loss of hearing Wears glasses Cancer Gout Thyroid disease Bladder disease High cholesterol Shortness of breath on exertion Former smoker History of echocardiogram Cardiology follow-up encounter History of atrial fibrillation HTN (hypertension) Hypothyroid Parkinson disease Home Medications ?Medication ?Instructions ?Recorded ?Last Taken ?Type amlodipine 10 mg tablet 10 tab PO DAILY blood pressu re 04/19/22 10/19/23 History carbidopa 25 mg-levodopa 100 mg 1 tab PO TID parkinson s 04/19/22 10/19/23 History tablet levothyroxine 50 mcg tablet 50 mcg PO DAILY thyroid 10/19/23 History triamterene 75 1 tab PO DAILY blood pressur e 07/05/22 Unknown History mg-hydrochlorothiazide 50 mg tablet allopurinol 100 mg tablet 100 mg PO DAILYCM 60 days #6 0 tabs 10/21/23 Unknown Rx lisinopril 5 mg tablet 5 mg PO DAILY 60 days #60 ta bs 10/21/23 Unknown Rx apixaban 5 mg tablet (Eliquis) 2.5 mg (1/2 x 5 mg) PO BID 60 days 02/25/24 03/16/24 Rx #120 tabs ciprofloxacin HCl 500 mg tablet 500 mg PO BID #10 tabs 03/20/24 Unknown Rx finasteride 5 mg tablet (Proscar) 5 mg PO DAILY #90 ta bs 03/20/24 Unknown Rx tamsulosin 0.4 mg capsule (Flomax) 0.4 mg PO DAILY #90 caps 03/20/24 Unknown Rx polyethylene glycol 3350 17 17 g PO DAILY #119 grams 0 06/11/25 Unknown Rx gram/dose oral powder (Miralax) sennosides 8.6 mg-docusate sodium 1 tab-cap PO DAILY 1 4 days #14 tabs 06/11/25 Unknown Rx 50 mg tablet (Senna with Docusate Sodium) Allergy/AdvReac Type Severity Reaction Status Date / Time No Known Allergies Allergy Verified 06/11/25 18:32 Surgical History Status post laparoscopic cholecystectomy Social History Smoking Status: Former smoker EXAM Physical Exam Const Vital Signs: 06/11/25 18:31 06/11/25 20:30 Temperature 98.7 F Temperature Source Oral Pulse Rate 79 100 Respiratory Rate 16 18 Blood Pressure 115/86 H 130/75 H Blood Pressure Mean 95 93 Pulse Ox 98 98 Oxygen Delivery Method Room Air MDM MDM MDM Narrative Medical decision making narrative: 75-year-old male with past medical history of CVA on Eliquis, Parkinson's disease, HTN who presents for evaluation of constipation. Patient states that he intermittently suffers from constipation secondary to his Parkinson's disease. He does not take a daily bowel regiment. Has not had a bowel movementin 1 week. See physical exam findings. I was able to manually disimpact some of the stool in the rectal vault. Patient did have some streaking of bright redblood. Given the bright red blood, we will performed basic labs with CT abdomenand pelvis. Differential diagnosis includes but is not limited to constipation,electrolyte abnormality, GI bleed, colitis. CBC without leukocytosis or anemia. BMP unremarkable. Lactic acid unremarkable. CT abdomen pelvis shows small esophageal hiatal hernia. Hepatomegaly. Fecal retention in the colon consistent with constipation. Bilateral inguinal hernias. Patient's symptoms are likely secondary to constipation from Parkinson's disease. I suspect that the bright red blood streaking is secondary to the constipation as well. Soapsuds enema ordered. Patient had some relief. Recommended drinking plenty of fluids. Given prescription for docusate senna and MiraLAX as a bowel regiment. Follow-up with PCP. He confirmed understanding the plan. Return precautions explained. They stable to discharge home. Impression: 1. Constipation 2. History of constipation with Parkinson's disease Lab Data Labs: Laboratory Results - last 24 hr 06/11/25 19:31 WBC 10.7 RBC 5.34 Hgb 15.1 Hct 44.4 MCV 83.1 MCH 28.3 MCHC 34.0 RDW Std Deviation 39.6 RDW Coeff of Navneet 13.2 Plt Count 213 MPV 10.4 Immature Gran % (Auto) 0.400 Neut % (Auto) 72.5 H Lymph % (Auto) 13.2 L Greer % (Auto) 11.6 H Eos % (Auto) 1.4 Baso % (Auto) 0.9 Absolute Neuts (auto) 7.8 H Absolute Lymphs (auto) 1.41 Nucleated RBC % 0 Sodium 137 Potassium 3.9 Chloride 99 Carbon Dioxide 25.6 Anion Gap 13 BUN 27 H Creatinine 1.19 Est GFR (MDRD) Non-Af 63 BUN/Creatinine Ratio 22.5 H Glucose 89 Lactic Acid < 1.0 Calcium 9.4 Radiography Diagnostic Testing: Clinical Impression(s) from Imaging Studies Abdomen/Pelvis CT 06/11/25 19:12 IMPRESSION: 1. Small esophageal hiatal hernia. 2. Hepatomegaly with fatty infiltration. 3. Fecal retention in the colon consistent with constipation. 4. Inguinal hernias, bilaterally. 5. Degenerative changes lumbar spine as described. Reading Location: [facility] Discharge Plan Triage Chief Complaint: Constipation ED Provider: Ruiz Swann Dx/Rx/DC Orders Clinical Impression: Constipation Instructions: Treating Constipation, ED Constipation (Adult) Prescriptions: New polyethylene glycol 3350 [Miralax] 17 gram/dose powder 17 g PO DAILY Qty: 119 0RF sennosides-docusate sodium [Senna with Docusate Sodium] 8.6-50 mg tablet 1 tab-cap PO DAILY 14 Days Qty: 14 0RF No Action amlodipine 10 mg tablet 10 tab PO DAILY Patient Comments: TAKE 1 TABLET BY MOUTH EVERY DAY levothyroxine 50 mcg tablet 50 mcg PO DAILY Patient Comments: TAKE 1 TABLET BY MOUTH ONCE DAILY. TAKE ON EMPTY STOMACH. FOR THYROID. triamterene-hydrochlorothiazid 75-50 mg tablet 1 tab PO DAILY Patient Comments: TAKE 1 TABLET BY MOUTH EVERY DAY carbidopa-levodopa 25-100 mg tablet 1 tab PO TID Patient Comments: TAKE 1 TABLET BY MOUTH THREE TIMES A DAY allopurinol 100 mg Tablet 100 mg PO DAILYCM 60 Days Qty: 60 0RF lisinopril 5 mg Tablet 5 mg PO DAILY 60 Days Qty: 60 0RF Eliquis 5 mg Tablet 2.5 mg PO BID 60 Days Qty: 120 0RF tamsulosin [Flomax] 0.4 mg capsule 0.4 mg PO DAILY Qty: 90 3RF finasteride [Proscar] 5 mg tablet 5 mg PO DAILY Qty: 90 3RF ciprofloxacin HCl 500 mg tablet 500 mg PO BID Qty: 10 0RF Primary Care Provider: Celso Hunt Referrals: Celso Hunt MD [Primary Care Provider] - 3-5 Days Activity Restrictions/Additional Instructions: Follow-up with your primary care physician. Return back to the ED if symptoms change or worsen. Drink plenty of fluids Print Language: Prydeinig Disposition Disposition: Home, Self Care What to do if you have Problems For any increased pain, shortness of breath, bleeding, nausea or vomiting, chestpain, or any unexpected problems, contact your Primary Care Provider. Call [facility] ([phone]) or report to the closest Emergency Room. Call 911 if necessary. 06/11/252225 <Electronically signed by Ruiz Swann DO> Cosigner Signature (if applicable): CC: Dr. Celso Hunt MD ~ Signed [facility] Work Phone: [phone]) 972-524608-25-2025 Instructions* Patient Instructions* Sade Shine APRN.CNP - 06/09/2025 10:30 AM EDT It was a pleasure to [...] Medication Schedule: Medications 3am 12pm 5pm Sinemet /100 1 1 1 Return at or around: 12/10/25 Your current [facility] Movement Disorders Team includes: Primary Movement Disorders Neurologist: Andrez Shine MD Primary Movement Disorders Advanced Practice Provider: Sade Shine CNP If there are any concerns before your next visit, please call or you can send a message through [employer]. You can also now schedule and select appointments through [employer]. Sade Shine APRN.ALIVIA documented in this encounterAdams [facility]08-25-2025 History of Present illness Narrative* Sade Shine APRN.CNP - 06/09/2025 10:00 AM EDT [facility] - FOLLOW UP EVALUATION Recording using [employer] software for draft documentation of the visit was discussed with the patient/authorized sales representative door to door; all questions welcomed and answered. Patient/authorized sales representative door to door agreed to proceed Daniella Samuels APRN.MANAGER OF SECURITY [address] [facility] [address] Dear Daniella Samuels APRN.ALIVIA: I had the pleasure of seeing Mr. Dela Cruz for follow-up today. As you know he [...] clinical research? Not currently Interval History: Mr. Dela Cruz is seen alone. He reports experiencing tremors that are not constant but tend to occur when engaging in activities such as using a screwdriver or wrench. He notes that the tremors interfere with hobbies like playing guitar and drums, as well as tasks requiring fine motor skills, such assoldering. He does not endorse difficulty with dressing or preparing for the day. He reports episodes of freezing of gait, describing a sensation where his feet feel stuck to the floor. He also experiences lightheadedness upon standing sometimes. He does not report any falls. He experiences constipation. He does not endorse swallowing difficulties with food but occasionallyhas trouble swallowing multiple medications at once. He [...] yard activities. He has a sister and rlxrrdz-fs-ppu who live nearby and provide support. Other [...] Objective Vital Signs: Ht 180.3 cm (5' 11") Wt 88.2 kg (194 lb 7.1 oz) SpO2 98% BMI 27.12 kg/m Orthostatic Vitals: Standing: BP 111/69 Pulse 70 No LMP for male patient. Body mass index is 27.12 kg/m . Movement Disorders Scales Performed: MDS-UPDRS [...] the mouth, such as less spontaneous smiling, butlips not parted. Finger Taps Right 1-Slight. a) the regular rhythm is broken with one or two interruptions or hesitations of the tapping movement, b) slight slowing, c) the amplitude decrements near the end of the 10taps. Finger Taps Left 1-Slight. a) the regular [...] during the tapping movements or at least onelonger arrest (freeze) in ongoing movement, b) moderate [...] microvascular ischemia. Assessment and Plan: Assessment Mr. Dela Cruz is a right-handed 75 year old man with Parkinson's disease since 2019. He continues to have significant tremor that does not respond to the Sinemet he takes, but he typically only takes atotal of 2 tablets daily in two divided [...] or around: 12/10/25 Level of service : 06038 ( 30-39 min). Time spent 33 min on the day of service, which included preparing to see the patient, xxld-xr-kasm patient care, completing clinical documentation, obtaining and/or reviewing separately obtained history, performing a medically appropriate examination, and counseling and educating the patient/family/caregiver. Sade Shine APRN.ALIVIA documented in this encounterAdams County [facility]08-25-2025 NoteHNO ID: [id number] Author: SADE SHINE APRN.CNP Service: ? Author Type: Nurse Practitioner Type: Progress Notes Filed: 06/09/2025 13:58 Note Text: [facility] - FOLLOW UP EVALUATION Recording using [employer] software for draft documentation of the visit was discussed with the patient/authorized sales representative door to door; all questions welcomed and answered. Patient/authorized sales representative door to door agreed to proceed Daniella Samuels APRN.CNP [address] [facility] [address] Dear Daniella Samuels APRN.CNP: I had the pleasure of seeing Mr. Dela Cruz for follow-up today. As you know he [...] clinical research? Not currently Interval History: Mr. Dela Cruz is seen alone. He reports experiencing tremors [...] yard activities. He has a sister and zxkiysy-nb-gnb who live nearby and provide support. Other [...] out occasionally. Restless Legs Syndrome: Yes Leg sw (more content not included)...[facility]08-12-2025 Note Patient Outreach (INTMMN) TRACI DELA CRUZ JR. ([id number]) 1950 Date Time Provider Department 05/27/25 DANIELLA SAMUELS During your visit today, we recorded the [...] Bladder stones [N21.0] 12/05/2023 Encounter Status:Closed by EPIC, PRODUSER on 05/30/25[facility] 02-26-2025 History of Present illness Narrative* Yanira Redd MD - 02/26/2025 10:40 AM EDT Images from the original note were not included. [facility] SECTION OF REGIONAL CARDIOLOGY OUTPATIENT VISIT DATE 02/26/2025 OUTPATIENT VISIT TYPE ESTABLISHED PRIMARY CARE PHYSICIAN: Celso Hunt [address] [place] [address] HISTORY OF PRESENT ILLNESS: Mr. Dela Cruz is a 73 year old male, history of stroke, atrial fibrillation, hypertension, Parkinson's, TIAs, presents for follow-up visit. Previously seen on 08/29/2024. He denies chest pain, SOB, palpitations, orthopnea, PND, leg swelling, lightheadedness, syncope. Hereports compliance and good tolerance on eliquis. 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 Prior Hx: He presented to [facility] on 10/19/2023 with blurred vision that started [...] no evidence of large vessel occlusion and absentee-shawnee of Peng. TTE 10/19/2023: EF 60%, grade 1 DD, negative bubble study. Mild MR, AR,TR MRI brain showed acute lacunar infarct right cerebellum with mild chronic involutional and white matter changes. He was noted to have atrial fibrillation. A Zio patch was done on 10/24/23 to 11/07/2023: 40-2 22. 3 VT runs: fastest 6 beats long with max [id number]: Longest 6 beats run rate 132. PSVT [...] 116/60 Pulse 70 Ht 180.3 cm (5' 11") Wt 84 kg (185 lb 3 oz) SpO2 98% BMI 25.83 kg/m General: Appears comfortable in no apparent cardiopulmonary distress Neck: No JVD, no bruits CVS: Regular rhythm,S1, S2, No m/r/g Chest: CTAB Abd: Soft, nontender, no masses, BS present Ext: No pedal edema, pedal pulses 2+ bilaterally Neuro: No focal neurological deficits ASSESSMENT/PLAN: 1. New onset atrial fibrillation (HCC) - ICD9: 427.31, ICD10: I48.91 [id number] 5. He reports heart rates in the [...] as ezetimibe 10 mg po daily again. Heis declining. 3. Nonsustained VT Recommended stress testing again however patient is declining. He states that he will keep us informed when he is ready to have this testing done. - He is declining repeat cardiac monitor technician. - On metoprolol 4. Carotid artery stenosis [...] and processed foods, focus on lean portions ofwhite meat- chicken and turkey breast, fish, healthy nuts, fruits, vegetables. - He was counseled on gradually achieving at least 30 minutes of moderate intensity aerobic exercise 5 times per week-biking, brisk walking, hiking, swimming, rowing. Yanira Redd MD, FACC documented in this encounterAdams County Regional Medical Center05-14-2025 NoteHNO ID: [id number] Author: YANIRA REDD MD Service: ? Author Type: Physician Type: Progress Notes Filed: 02/26/2025 10:52 Note Text: [facility] [place] SECTION OF REGIONAL CARDIOLOGY OUTPATIENT VISIT DATE 02/26/2025 OUTPATIENT VISIT TYPE ESTABLISHED PRIMARY CARE PHYSICIAN: Celso Hunt [address] [place] [address] HISTORY OF PRESENT ILLNESS: Mr. Dela Cruz is a 73 year old male, history of stroke, atrial fibrillation, hypertension, Parkinson's, TIAs, presents for follow-up visit. Previously seen on 08/29/2024. He denies chest pain, SOB, palpitations, orthopnea, PND, leg swelling, lightheadedness, syncope. He reports compliance and good tolerance on eliquis. 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 Prior Hx: He presented to [facility] on 10/19/2023 with blurred vision that started [...] no evidence of large vessel occlusion and absentee-shawnee of Peng. TTE 10/19/2023: EF 60%, grade [...] 116/60 Pulse 70 Ht 180.3 cm (5' 11") Wt 84 kg (185 lb 3 oz) SpO2 98% BMI 25.83 kg/m? General: Appears comfortable in no apparent cardiopulmonary distress Neck: No JVD, no bruits CVS: Regular rhythm,S1, S2, No m/r/g Chest: CTAB Abd: Soft, nontender, no masses, BS present Ext: No pedal edema, pedal pulses 2+ bilaterally Neuro: No focal neurological defi (more content not included)...[facility]05-07-2025 Radiology Diagnostic study note [facility] Imaging Services [address] [place] [address] Abdomen Single View (Portable) MR#: [id number] Acct: [id number] Name: TRACI DELA CRUZ Jr. Rep #: [id number] : 1950 M 74 From: Wen Chavez MD PCP: Dr. Celso Hunt MD Status: REG E R Study:Abdomen Single View (Portable) Date of Exam: 02/19/25 Exam# [id number] Ordering Dr: Lynnette Camara DO PROCEDURE: ABDOMEN SINGLE VIEW (PORTABLE) 02/19/2025 REASON FOR EXAM: CONSTIPATION TECHNIQUE: Single view abdomen. COMPARISON: CT abdomen and pelvis 02/25/2024 FINDINGS: Bowel gas: Nonobstructive bowel gas pattern. Moderate colonic stool. Calcifications: No suspicious calcification Bones: Degenerative changes of the lumbar spine. Other: RAD/Abdomen Single View (Portable) IMPRESSION: Nonobstructive bowel gas pattern. Moderate colonic stool. Reading Location: [facility] CC: Dr. Annia Camara DO; Dr. Celso Hunt MD ~ [employer] Remittance Clerk: Signed [facility]05-07-2025 NoteHNO ID: [id number] Author: ALLEN NASCIMENTO PA Service: ? Author Type: Physician Venetian Blind Washer Type: Progress Notes Filed: 02/19/2025 08:06 Note Text: [facility] Subjective Traci Dela Cruz Jr. is a 74 year old male. [...] not suggestive Disposition The patient was discharged. [facility] History of Present illness Narrative* Allen Nascimento PA - 02/19/2025 8:04 AM EDT Images from the original note were not included. [facility] Subjective Traci Dela Cruz Jr. is a 74 year old male. [...] Objective BP 122/60 Pulse 80 Temp 37.5 C (99.5 F) Resp 16 Wt 86.4 kg (190 lb 7.6 oz) SpO2 98% BMI26.57 kg/m Physical Exam Vitals and nursing note reviewed. [...] likely for the following reason(s): suggested by H&P - Fracture is less likely for the following reason(s): No injury, H&P not suggestive - Cellulitis is less likely for the following reason(s): H&P not suggestive Disposition The patient was discharged. Procedures documented in this encounterAdams County Regional Medical Center03-31-2025 NoteHNO ID: [id number] Author: ANDERSON HINTON APRN.MANAGER OF SECURITY Service: ? Author Type: Nurse Practitioner Type: Progress Notes Filed: 01/13/2025 09:09 Note Text: This note was created using Cloudscalingriter. Subjective Traci Dela Cruz Jr. is a 74 year old male. [...] PCP. - PREDNISONE 20 MG TABLET Anderson Hinton APRN.CNPPromedica Memorial Hospital03-31-2025 History of Present illness Narrative* Anderson Hinton APRN.CNP - 01/13/2025 9:00 AM EDT This note was created using [employer]uv[employer] Systemster. Subjective Traci Dela Cruz Jr. is a 74 year old male. HPI For the last 4 days patient complains of pain in the right ankle which she states is consistent with his previous gout flares. He otherwise denies any strain or trauma. Denies any fever or any other health concerns. Review of Systems As above Objective BP 128/64 Pulse 74 Temp 36.6 C (97.9 F) Resp 16 Wt 85.3 kg (188 lb 0.8 oz) SpO2 97% BMI26.23 kg/m Physical Exam Vitals and nursing note reviewed. Constitutional: General: He is not in acute distress. Appearance: Normal appearance. He is not ill-appearing. HENT: Head: Normocephalic. Pulmonary: Effort: Pulmonary effort is normal. Musculoskeletal: General: Normal range of motion. Cervical back: Normal range of motion. Comments: Diffuse tenderness over the lateral aspect of the right ankle with no obvious swelling ordeformities noted. No pain throughout the foot. Skin: [...] PCP. - PREDNISONE 20 MG TABLET Anderson Hinton APRN.ALIVIA documented in this encounterAdams County Regional Medical Center02-27-2025 Telephone encounter Note * Telephone Encounter - Radha Piña MA - 12/12/2024 3:58 PM EST Patient informed and verbalized understanding. Radha Piña MA [facility]02-27-2025 Miscellaneous Notes* Telephone Encounter - Radha Piña MA - 12/12/2024 3:58 PM EST Patient informed and verbalized understanding. Radha Piña MA * Telephone Encounter - Radha Piña MA - 12/12/2024 3:57 PM EST ----- Message from Daniella Samuels sent at 12/12/2024 11:38 AM EST ----- Please let patient know that his thyroid level was perfect. Will renew his levothyroxine at currentdose. * Result Encounter Note - Daniella Samuels APRN.CNP - 12/12/2024 11:38 AM EST Please let patient know that his thyroid level was perfect. Will renew his levothyroxine at currentdose. documented in this encounterAdams County Regional Medical Center02-27-2025 Telephone encounter Note * Telephone Encounter - Radha Piña MA - 12/12/2024 3:57 PM EST ----- Message from Daniella Samuels sent at 12/12/2024 11:38 AM EST ----- Please let patient know that his thyroid level was perfect. Will renew his levothyroxine at currentdose. [facility]02-27-2025 Progress note* Result Encounter Note - Daniella Samuels APRN.CNP - 12/12/2024 11:38 AM EST Please let patient know that his thyroid level was perfect. Will renew his levothyroxine at currentdose. [facility]02-25-2025 Note* Addendum Note - Daniella Samuels APRN.CNP - 12/10/2024 10:02 AM ESTAddended by: DANIELLA SAMUELS on: 12/10/2024 10:02 AM Modules accepted: Orders [facility]02-25-2025 Miscellaneous Notes* Addendum Note - Daniella Samuels APRN.CNP - 12/10/2024 10:02 AM ESTAddended by: DANIELLA SAMUELS on: 12/10/2024 10:02 AM Modules accepted: Orders documented in this encounterAdams County Regional Medical Center02-25-2025 Instructions* Patient Instructions* Daniella Samuels APRN.CNP - 12/10/2024 10:01 AM EST 1) Check lab today for thyroid level 2) Medrol Dosepak for gout flare 3) Miralax OTC daily as needed for constipation 4) Follow up in 6 months documented in this encounterAdams County Regional Medical Center02-25-2025 NoteHNO ID: [id number] Author: DANIELLA SAMUELS APRN.CNP Service: ? Author Type: Nurse Practitioner Type: Progress Notes Filed: 12/10/2024 10:01 Note Text: This is a 74 year old male who presents today with: Patient presents with: 6 Month Exam HISTORY OF PRESENT ILLNESS: Traci Dela Cruz Jr. is a 74 year old male. [...] Pure hypercholesterolemia - ICD9: 272.0, ICD10: E78.00 (more content not included)...[facility]02-25-2025 History of Present illness Narrative* Daniella Samuels APRN.ALIVIA - 12/10/2024 9:46 AM EST This is a 74 year old male who presents today with: Patient presents with: 6 Month Exam HISTORY OF PRESENT ILLNESS: Traci Dela Cruz Jr. is a 74 year old male. [...] EXAM: BP 128/66 Pulse 64 Temp 36.3 C (97.3 F) (Left Tympanic) Wt 84.8 kg (187 lb) SpO2 96% BMI 26.08 kg/m PHYSICAL EXAM: Physical Exam Vitals reviewed. Constitutional: [...] or fluctuating manifestations (HCC) - ICD9: 332.0, ICD10:G20.A1 (primary diagnosis) Follows with neurology 2. Hypothyroidism, [...] or as needed for worsening/no improvement. Daniella Samuels APRN.MANAGER OF SECURITY documented in this encounterAdams County Regional Medical Center02-24-2025 Instructions* Patient Instructions* Sade Shine APRN.MANAGER OF SECURITY - 12/09/2024 10:43 AM EST It was a pleasure to see you [...] or you can send a message through Sien. You can also now schedule and select appointments through [employer]ien. Sade Shine APRN.MANAGER OF SECURITY From the Parkinson's Foundation: https://www.parkinson.org What Can [...] drooling. Another tactic is to wear a sweatbandon your wrist. This can be used to [...] this is perceived as a side effect (drymouth), but in this case it is an advantage. Other anticholinergic side effects may be seen, including drowsiness, confusion, vomiting, dizziness, blurred vision, constipation, flushing, headache andurinary retention. Anticholinergics can also have mental side [...] used to treat dystonia. Injection of botulinum to adiel A into the salivary glands of the [...] treatment for severe drooling but is more costlythan other treatments, which your physician may want [...] can make phlegm worse. documented in this encounterAdams County Regional Medical Center02-24-2025 History of Present illness Narrative* Sade Shine APRN.CNP - 12/09/2024 10:00 AM EST [facility] - FOLLOW UP EVALUATION Primary Movement Disorders Neurologist: Andrez Shine MD Primary Movement Disorders TORI: ALIVIA Franco APRN.MANAGER OF SECURITY [address] [facility] [address] Dear Daniella Samuels APRN.CNP: I had the pleasure of seeing Mr. Dela Cruz for follow-up today. 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 Movement Disorders Medications Schedule - as of [...] bathroom. The urologist offered, but he does notwant to try medication at this time. Daytime [...] are not sustained for more than one dayat a time. No interference with my ability [...] Adult) Pulse 67 Ht 180.3 cm (5' 11") Wt 85.3 kg (188 lb 0.8 oz) SpO2 98% BMI 26.23 kg/m Orthostatic Vitals: None for this encounter No LMP for male patient. Body mass index is 26.23 kg/m . Movement Disorders Scales Performed: Mal Cognitive Assessment [...] the mouth, such as less spontaneous smiling, butlips not parted. Rigidity Neck 2-Mild. Rigidity detected [...] amplitude decrements near the end of the 10taps. Finger Taps Left 1-Slight. a) the regular [...] during the tapping movements or at least onelonger arrest (freeze) in ongoing movement, b) moderate [...] microvascular ischemia. Assessment and Plan: Assessment Mr. Dela Cruz is a right-handed 74 year old year [...] or around: 06/08/25 Level of service : 23780 (40-68 min). Time spent 47 min on the day of service, which included preparing to see the patient, gail-sk-ciag patient care, completing clinical documentation, obtaining and/or reviewing separately obtained history, performing a medically appropriate examination, and counseling and educating the patient/family/caregiver. Sade Shine APRN.MANAGER OF SECURITY documented in this encounterAdams County Regional Medical Center02-24-2025 NoteHNO ID: [id number] Author: SADE SHINE APRN.CNP Service: ? Author Type: Nurse Practitioner Type: Progress Notes Filed: 12/09/2024 11:38 Note Text: [facility] - FOLLOW UP EVALUATION Primary Movement Disorders Neurologist: Andrez Shine MD Primary Movement Disorders TORI: ALIVIA Franco APRN.MANAGER OF SECURITY [address] [facility] [address] Dear Daniella Samuels APRN.MANAGER OF SECURITY: I had the pleasure of seeing Mr. Dela Cruz for follow-up today. 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 Movement Disorders Medications Schedule - as of [...] mouth two times a day. colchicine 0.6 m (more content not included)...[facility] 09-30-2024 Instructions* Patient Instructions* Daniella Samuels APRN.CNP - 09/30/2024 11:17 AM EST 1) Colchicine 2 tablets at onset of gout and 1 tab an hour later- only as needed 2) Check TSH in Nov. 3) Follow up in Nov as scheduled documented in this encounterAdams County Regional Medical Center12-16-2024 NoteHNO ID: [id number] Author: DANIELLA SAMUELS APRN.CNP Service: ? Author Type: Clinical Nurse Specialist Type: Progress Notes Filed: 09/30/2024 11:18 Note Text: This is a 74 year old male who presents today with: No chief complaint on file. HISTORY OF PRESENT ILLNESS: Traci Dela Cruz Jr. is a 74 year old male. [...] or as needed for worsening/no improvement. Daniella Samuels APRN.CNPPromedica Memorial Hospital12-16-2024 History of Present illness Narrative* Daniella Samuels APRN.MANAGER OF SECURITY - 09/30/2024 11:03 AM EST This is a 74 year old male who presents today with: No chief complaint on file. HISTORY OF PRESENT ILLNESS: Traci Dela Cruz Jr. is a 74 year old male. [...] EXAM: BP 118/64 Pulse 75 Temp 36.3 C (97.4 F) (Tympanic) Resp 14 Wt 87.4 kg (192 lb 10.9 oz) SpO2 97% BMI 26.87 kg/m PHYSICAL EXAM: Physical Exam Vitals reviewed. Constitutional: [...] or as needed for worsening/no improvement. Daniella Samuels APRN.MANAGER OF SECURITY documented in this encounterAdams County Regional Medical Center12-10-2024 Telephone encounter Note * Telephone Encounter - Chidi Stark LPN - 09/24/2024 10:54 AM EST Spoke with pt and information listed below given. Pt verbalizes understanding. Chidi Stark LPN [facility]12-10-2024 Miscellaneous Notes* Telephone Encounter - Chidi Stark LPN - 09/24/2024 10:54 AM EST Spoke with pt and information listed below given. Pt verbalizes understanding. Chidi Stark LPN * Telephone Encounter - Ximena Coffey RN - 09/24/2024 9:48 AM EST Called and left a voicemail for the Patient to call back and ask for a nurse to receive the providers message. Ximena Coffey RN * Telephone Encounter - Daniella Samuels APRN.CNP - 09/24/2024 8:09 AM EST Please let patient know that TSH is a little high meaning not enough thyroid replacement. I am going to follow the levothyroxine dose up to 100 mcg daily. Please recheck a TSH around November 16. documented in this encounterAdams County Regional Medical Center12-10-2024 Telephone encounter Note * Telephone Encounter - Ximena Coffey RN - 09/24/2024 9:48 AM EST Called and left a voicemail for the Patient to call back and ask for a nurse to receive the providers message. Ximena Coffey RN [facility]12-10-2024 Telephone encounter Note* Telephone Encounter - Daniella Samuels APRN.CNP - 09/24/2024 8:09 AM EST Please let patient know that TSH is a little high meaning not enough thyroid replacement. I am going to follow the levothyroxine dose up to 100 mcg daily. Please recheck a TSH around November 16. [facility]12-03-2024 Telephone encounter Note* Telephone Encounter - Graciela Mcgregor RN - 09/17/2024 9:54 AM EST Called and left patient a detailed msg of need to come in and have labwork drawn. Asked him to callback and confirm he received the msg. Lab order is placed. Also will mail a letter telling pt of need for labwork. [facility]12-03-2024 Miscellaneous Notes* Telephone Encounter - Graciela Mcgregor RN - 09/17/2024 9:54 AM EST Called and left patient a detailed msg of need to come in and have labwork drawn. Asked him to callback and confirm he received the msg. Lab order is placed. Also will mail a letter telling pt of need for labwork. * Telephone Encounter - Daniella Samuels APRN.CNP - 09/17/2024 9:13 AM EST The following approved medication requests have been transmitted electronically. Requested Prescriptions Pending Prescriptions Disp Refills levothyroxine (SYNTHROID) 75 mcg tablet 30 tablet 0 Sig: Take 1 tablet by mouth once daily. Take on empty stomach. For Thyroid. Daniella Samuels APRN.CNP * Telephone Encounter - Mamadou Charles RN - 09/17/2024 8:35 AM EST Mailed patient's current amb med list and after visit summary from last ov to his home, via [employer] per patient request. States he needs a list of meds written down so he knows what to take. Patient also needs refill on levothyroxine. Pended. Last ov: 06-10-24 Next ov: 12-10-24 documented in this encounterAdams County Regional Medical Center12-03-2024 Telephone encounter Note * Telephone Encounter - Daniella Samuels APRN.CNP - 09/17/2024 9:13 AM EST The following approved medication requests have been transmitted electronically. Requested Prescriptions Pending Prescriptions Disp Refills levothyroxine (SYNTHROID) 75 mcg tablet 30 tablet 0 Sig: Take 1 tablet by mouth once daily. Take on empty stomach. For Thyroid. Daniella Samuels APRN.CNP [facility]12-03-20[facility] Telephone encounter Note* Telephone Encounter - Bekah Hall - 09/17/2024 8:37 AM EST Patient phones requesting refills as follows: When approved Rx escribed to [facility]. 06/05/24 TRICIA w/Sade Shine CNP Requested Prescriptions Pending Prescriptions Disp Refills carbidopa-levodopa (SINEMET 25-100) 25-100 mg per tablet 270 tablet 3 Sig: Take 1 tablet by mouth three times a day. Please review and advise. Bekah Fine [facility]12-03-2024 Miscellaneous Notes* Telephone Encounter - Bekah Hall - 09/17/2024 8:37 AM EST Patient phones requesting refills as follows: When approved Rx escribed to [facility]. 06/05/24 TRICIA w/Sade Shine CNP Requested Prescriptions Pending Prescriptions Disp Refills carbidopa-levodopa (SINEMET 25-100) 25-100 mg per tablet 270 tablet 3 Sig: Take 1 tablet by mouth three times a day. Please review and advise. Bekah Pascual [facility] documented in this encounterAdams County Regional Medical Center12-03-2024 Telephone encounter Note * Telephone Encounter - Mamadou Charles RN - 09/17/2024 8:35 AM EST Mailed patient's current amb med list and after visit summary from last ov to his home, via [employer]PS per patient request. States he needs a list of meds written down so he knows what to take. Patient also needs refill on levothyroxine. Pended. Last ov: 06-10-24 Next ov: 12-10-24 [facility] History of Present illness Narrative* Yanira Redd MD - 08/29/2024 10:40 AM EST Images from the original note were not included. [facility] [place] SECTION OF REGIONAL CARDIOLOGY OUTPATIENT VISIT DATE 08/29/24 OUTPATIENT VISIT TYPE ESTABLISHED PRIMARY CARE PHYSICIAN: Celso Hunt [address] [place] [address] HISTORY OF PRESENT ILLNESS: Mr. Dela Cruz is a 73 year old male, history of stroke, hypertension, Parkinson's, TIAs , presents for follow-up visit. He presented to [facility] on 10/19/2023 with blurred vision that started [...] no evidence of large vessel occlusion and absentee-shawnee of Peng. TTE 10/19/2023: EF 60%, grade 1 DD, negative bubble study. Mild MR, AR,TR MRI brain showed acute lacunar infarct right cerebellum with mild chronic involutional and white matter changes. He was noted to have atrial fibrillation. A Zio patch was done on 10/24/23 to 11/07/2023: 40-2 22. 3 VT runs: fastest 6 beats long with max [id number]: Longest 6 beats run rate 132. PSVT runs-5 beats at 194 bpm: Longest 20.1 seconds long HR 112. Less than 1% SVE as well as SVE triplets. Some 1% VE, VE couplets, ventricular bigeminy and trigeminy were present. He denies chest pain, SOB, palpitations, orthopnea, PND, leg swelling, lightheadedness, syncope. Hereports compliance and good tolerance on [employer]. 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 New onset atrial fibrillation (HCC) - ICD9: 427.31, ICD10: I48.91 [id number] 5. He reports heart rates in the [...] testing done. - He is declining repeat cardiac monitor technician - On metoprolol 4. Carotid artery stenosis [...] and processed foods, focus on lean portions ofwhite meat- chicken and turkey breast, fish, healthy nuts, fruits, vegetables. - He was counseled on gradually achieving at least 30 minutes of moderate intensity aerobic exercise 5 times per week-biking, brisk walking, hiking, swimming, rowing. Yanira Redd MD, [facility] documented in this encounterAdams [facility]11-14-2024 NoteHNO ID: [id number] Author: YANIRA REDD MD Service: ? Author Type: Physician Type: Progress Notes Filed: 08/29/2024 12:41 Note Text: [facility] [place] SECTION OF REGIONAL CARDIOLOGY OUTPATIENT VISIT DATE 08/29/24 OUTPATIENT VISIT TYPE ESTABLISHED PRIMARY CARE PHYSICIAN: Celso Hunt [address] [place] [address] HISTORY OF PRESENT ILLNESS: Mr. Dela Cruz is a 73 year old male, history of stroke, hypertension, Parkinson's, TIAs , presents for follow-up visit. He presented to [facility] on 10/19/2023 with blurred vision that started [...] no evidence of large vessel occlusion and absentee-shawnee of Peng. TTE 10/19/2023: EF 60%, grade [...] on eliquis. 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 He reports heart rates in the [...] testing done. - He is declining repeat cardiac monitor technician - On metoprolol 4. Carotid artery stenosis Mild noted on carotid artery duplex 20-39% bilateral ICA per carotid artery duplex dated 05/31/21; and Neck CTA <30% LICA ? 30% STEFANY - He is declining repeat carotid artery duplex - Continue medi (more content not included)...[facility] 08-22-2024 Telephone encounter Note* Telephone Encounter - Malgorzata Benjamin MA - 08/22/2024 5:26 PM EST Fax received from [employer]. His assistance will on 10/15/24. Form in mailbox. Malgorzata Benjamin MA August 22, 2024 5:30 PM [facility]11-07-[facility] Miscellaneous Notes* Telephone Encounter - Malgorzata Benjamin MA - 08/22/2024 5:26 PM EST Fax received from [employer]. His assistance will on 10/15/24. Form in mailbox. Malgorzata Benjamin MA August 22, 2024 5:30 PM documented in this encounterAdams County [facility] Center08-27-2024 Telephone encounter Note * Telephone Encounter - Malgorzata Benjamin MA - 06/11/2024 9:27 AM EDT Patient was made aware of the results. Patient verbalizes understanding. Malgorzata Benjamin Ma [facility]08-27-2024 Miscellaneous Notes* Telephone Encounter - Malgorzata Benjamin MA - 06/11/2024 9:27 AM EDT Patient was made aware of the results. Patient verbalizes understanding. Malgorzata Benjamin Ma * Telephone Encounter - Daniella Samuels APRN.CNP - 06/11/2024 8:17 AM EDT Please let patient know that his thyroid level is slightly low. We needed to increase his levothyroxine to 75 mcg daily. Recheck TSH in 2 months. PSA is slightly elevated at 4.83 but acceptable for age. Each decade, the parameters for PSA increase. His is acceptable. Other labs are all normal. TSH has been ordered already for 2 months. documented in this encounterAdams County [facility] Center08-27-2024 Telephone encounter Note * Telephone Encounter - Daniella Samuels APRN.CNP - 06/11/2024 8:17 AM EDT Please let patient know that his thyroid level is slightly low. We needed to increase his levothyroxine to 75 mcg daily. Recheck TSH in 2 months. PSA is slightly elevated at 4.83 but acceptable for age. Each decade, the parameters for PSA increase. His is acceptable. Other labs are all normal. TSH has been ordered already for 2 months. [facility]08-26-[facility]24 Instructions* Patient Instructions* Daniella Samuels APRN.CNP - 06/10/2024 11:56 AM EDT 1) Stop triamterene with HCTZ (will flare gout) 2) Continue lisinopril, amlodipine, and metoprolol XL 3) Get labs today 4) Follow up in 6 months documented in this encounterAdams County [facility] Center08-26-2024 History of Present illness Narrative* Daniella Samuels APRN.CNP - 06/10/2024 11:34 AM EDT This is a 74 year old male who presents today with: Patient presents with: 6 month f/up HISTORY OF PRESENT ILLNESS: Traci Dela Cruz Syl is a 74 year old male. Patient presents with: 6 month f/up Denies complaints. PAST MEDICAL HISTORY: PAST MEDICAL HISTORY No date: Atrial fibrillation (HCC) 11/30/2017: Calculus of gallbladder without cholecystitis without obstruction 11/30/2017: Gallbladder polyp Comment: Patient declines follow up. Aware of risks of not diagnosing a gall bladder malignancy No date: Gout 2007: History of TIAs Comment: negative workup. bp etiology No date: Hyperlipemia No date: Hypertension No date: Hypothyroidism (acquired) No date: Parkinson's disease (HCC) 2006: Personal history of kidney stones No date: Posterior vitreous detachment of left eye No date: REM sleep behavior disorder PAST SURGICAL HISTORY 09/25/2022: L'SCOPE CHOLECYSTECTOMY ALLERGIES Patient has no known allergies. MEDICATIONS Current Outpatient Medications Medication Sig carbidopa-levodopa (SINEMET 25-100) 25-100 mg per tablet Take 1 tablet by mouth three times a day. triamterene-hydroCHLOROthiazide (MAXZIDE) 75-50 mg per tablet Take 1 tablet by mouth once daily. apixaban (ELIQUIS) 5 mg tab(s) Take 1 tablet by mouth two times a day. atorvastatin (LIPITOR) 80 mg tablet lisinopril (ZESTRIL) 5 mg tablet levothyroxine (SYNTHROID) 50 mcg tablet Take 1 tablet by mouth once daily. Take on empty stomach. For Thyroid. amLODIPine (NORVASC) 10 mg tablet Take 1 tablet by mouth once daily. metoprolol succinate ER (TOPROL XL) 50 mg 24 hr tablet Take 1 tablet by mouth once daily. probenecid-colchicine (COL-PROBENECID) 500-0.5 mg per tablet Take 1 tablet by mouth two times [...] REVIEW OF SYSTEMS GENERAL: No weight loss, some malaise, no fevers/chills HEENT: Negative for frequent or significant headaches, No changes in hearing or vision. NECK: Negative for lumps, goiter, pain and significant neck swelling RESPIRATORY: Negative for cough, hemoptysis, wheezing, dyspnea or shortness of breath CARDIOVASCULAR: Negative for chest pain, leg swelling, orthopnea, or palpitations GI: No nausea, vomiting, or diarrhea/ some constipation. No hematochezia/melena. No heartburn or reflux symptoms. : No history of dysuria, frequency or incontinence. Recent DX bladder cancer- completed [place] MUSCULOSKELETAL: Negative for joint pain or swelling except left knee on occ SKIN: Negative for lesions, rash, and itching ENDOCRINE: Negative for cold or heat intolerance- doesn't like the cold, polyuria, polydipsia and goiter NEURO: No history of headaches, syncope, paralysis, seizures, + Parkinsons tremors MOOD: Negative for depression, anxiety, or suicidal ideation. EXAM: BP 120/62 (BP Site: Left Arm, BP Position: Sitting, BP Cuff Size: Regular Adult) Pulse 64 Resp 16 Wt 87 kg (191 lb 12.8 oz) BMI 26.75 kg/m PHYSICAL EXAM: Physical Exam Vitals reviewed. Constitutional: Appearance: Normal appearance. HENT: Head: Normocephalic. Right Ear: Tympanic membrane and ear canal normal. There is no impacted cerumen. Left Ear: Tympanic membrane and ear canal normal. There is no impacted cerumen. Nose: Nose normal. No congestion or rhinorrhea. Mouth/Throat: Mouth: Mucous membranes are dry. Neck: Comments: Full rodrigez, no palpable nodes on thyroid Cardiovascular: Rate and Rhythm: Normal rate and regular rhythm. Pulses: Normal pulses. Heart sounds: Normal heart sounds. Pulmonary: Effort: Pulmonary effort is normal. Breath sounds: Normal breath sounds. Abdominal: General: Abdomen is flat. Bowel sounds are normal. Palpations: Abdomen is soft. Musculoskeletal: Comments: Severe resting tremor Moves all ext. Without difficulty Skin: General: Skin is warm and dry. Neurological: Mental Status: He is alert and oriented to person, place, and time. Comments: Parkinsons tremor Psychiatric: Mood and Affect: Mood normal. Behavior: Behavior normal. LABS: screen labs ASSESSMENT/PLAN: 1. Parkinson's disease without dyskinesia or fluctuating manifestations (HCC) - ICD9: 332.0, ICD10:G20.A1 (primary diagnosis) Ongoing- follows with neurology - COMPREHENSIVE METABOLIC PANEL - THYROID STIMULATING HORMONE 2. Screening for depression - ICD9: V79.0, ICD10: Z13.31 denies - DEPRESSION SCREENING 3. Essential hypertension - ICD9: 401.9, ICD10: I10 - Controlled - Recommend home blood pressure monitoring, to bring results to next visit - Encouraged sodium restriction, DASH or Mediterranean diet - Recommend regular aerobic exercise - COMPREHENSIVE METABOLIC PANEL - MAGNESIUM 4. Paroxysmal atrial fibrillation (HCC) - ICD9: 427.31, ICD10: I48.0 Anticoagulated - COMPREHENSIVE METABOLIC PANEL - COMPLETE BLOOD COUNT AND DIFFERENTIAL - THYROID STIMULATING HORMONE 5. Pure hypercholesterolemia - ICD9: 272.0, ICD10: E78.00 Check lipids - LIPID PANEL BASIC - THYROID STIMULATING HORMONE 6. Gastroesophageal reflux disease without esophagitis - ICD9: 530.81, ICD10: K21.9 - Stable 7. Malignant neoplasm of urinary bladder, unspecified site (HCC) - ICD9: 188.9, ICD10: C67.9 Just completed [place] 8. Screening for prostate cancer - ICD9: V76.44, ICD10: Z12.5 - Counseled on healthy diet and regular exercise - THYROID STIMULATING HORMONE - HEMOGLOBIN A1C - VITAMIN B12 - PSA/PROSTATE SPECIFIC ANTIGEN SCREENING 9. Screening for diabetes mellitus - ICD9: V77.1, ICD10: Z13.1 Check labs - HEMOGLOBIN A1C 10. Screening for thyroid disorder - ICD9: V77.0, ICD10: Z13.29 Check labs - THYROID STIMULATING HORMONE Discussed treatment plan and patient voices understanding. Patient's questions answered appropriately. Medications and potential side effects were discussed and patient voices understanding. Return to the office as scheduled or as needed for worsening/no improvement. Daniella Samuels APRN.MANAGER OF SECURITY documented in this encounterAdams [facility] Center08-21-2024 Instructions* Patient Instructions* Sade Shine APRN.ALIVIA - 06/05/2024 9:38 AM EDT It was a pleasure to see you today. We addressed the following diagnoses: Constipation, unspecified constipation type (primary encounter diagnosis) Sialorrhea Parkinson's disease without dyskinesia or fluctuating manifestations (hcc) My recommendations are as follows: 06/05/2024 Visit: Parkinson's disease: Continue current medication schedule consistently take it on time Continue your hobbies and keeping your hands and mind busy Please let me know if you change your mind about getting occupational therapy Constipation: Try using Miralax daily. Sialorrhea (drooling): You have been provided with a hand out on drooling. Please do not hesitate to let me know if you have any questions about anything you read. Movement Disorders Medication Schedule: Medications 3am 12pm 5pm Sinemet 1 1 1 No follow-ups on file.Return at or around: 12/06/24 If there are any concerns before your next visit, please call or you can send a message through [employer]. You can also now schedule and select appointments through [employer]. Sade Shine APRN.MANAGER OF SECURITY From the Parkinson's Foundation: [email or web address].parkinson.org What Can [...] drooling. Another tactic is to wear a sweatbandon your wrist. This can be used to [...] this is perceived as a side effect (drymouth), but in this case it is an advantage. Other anticholinergic side effects may be seen, including drowsiness, confusion, vomiting, dizziness, blurred vision, constipation, flushing, headache andurinary retention. Anticholinergics can also have mental side [...] used to treat dystonia. Injection of botulinum to adiel A into the salivary glands of the [...] treatment for severe drooling but is more costlythan other treatments, which your physician may want [...] can make phlegm worse. documented in this encounterAdams County [facility] Center08-21-2024 History of Present illness Narrative* Sade Shine APRN.CNP - 06/05/2024 9:10 AM EDT [facility] - FOLLOW UP EVALUATION Mamadou Wu PA-C [address] [facility] [id number] Dear Mamadou Wu PA-C: I had the pleasure of seeing Mr. Dela Cruz for follow-up today. As you know he is a 74 year old right-handed male with a history of Parkinson's disease since 2019. He is seen alone. Subjective Previous Plan-07/18/2023 Visit: Parkinson's disease: Continue current medication schedule [...] to your Parkinson's disease or to your bloodpressure medications so please let Dr. Hunt know. He will also want to know if you start feeling dizzy or lightheaded when you stand. Please make sure you are changing positions slowly and drinking plenty of water. Interval History: He was hospitalized in the winter for three days with a "mini-stroke" and this summer, he was diagnosed with bladder cancer. He had surgery, is on medication and is having a procedure done soon. He has more tremor when he rests after doing a lot of activities. This lasts for about 5 minutes and then it will get better. He reduced the Sinemet back to three times daily as the four times daily dosing made him feel funny. Often he only takes two doses depending on what he is doing. Movement Disorders Medications Schedule - as of the start of the visit: Medications 3am 12pm 9:30pm Sinemet 25/100 1 1 1 Parkinson's Motor Complications Medication benefit onset: unclear Medication duration: unclear Wearing off: no Painful off-state dystonia: no Dyskinesia: no Prior Anti-Parkinson Therapies Carbidopa/Levodopa Questionnaires: In addition, the following areas that may be affected by abnormal involuntary movements were evaluated: Daily activities Difficulties with eating: Yes Difficulties in dressing: No Difficulties with hygiene activities: No Difficulties with handwriting: Yes Difficulties with doing hobbies and other activities: Not too much though he has trouble lifting the heavy radios he collects Difficulties turning in bed: No Difficulties getting out of bed, car or chair: Sometimes it is tricky depending on the chair Tremors/Gait/Balance Shaking or tremors: Yes Walking and balance problems: No Number of falls in the Last Month: No Gait freezing: Yes this lasts for a few seconds and not while walking, but when trying to side stepto get something Autonomic/Pain Lightheadeness on standing: Not very often-only rarely when bending over and he gets up too fast Urinary problems: He has bladder cancer. Constipation problems: This is still a problem. Pain and other sensations: No Speech/Swallowing Speech problems: Every once in a while, he will forget a word. Drooling: A little and mostly during the day Chewing and swallowing problems: Not really though occasionally a pill will get stuck Sleep/Fatigue Sleep problems: No Daytime sleepiness: He does fall asleep while watching TV. Fatigue: Sometimes. Mood/Behavior Depression: He said he is not depressed. Anxiety: He said he is not anxious. Finally, the following table shows the [...] of smell: No Cognition: Cognitive impairment: He said he forgets a word every once in a while. MoCA Cognitive assessment: Hallucinations and delusions: no [...] tablet by mouth two times a day. probenecid-colchicine (COL-PROBENECID) 500-0.5 mg per tablet Take 1 tablet by mouth two times a day. atorvastatin (LIPITOR) 80 mg tablet levothyroxine (SYNTHROID) 50 mcg tablet Take 1 tablet by mouth once daily. Take on empty stomach. For Thyroid. amLODIPine (NORVASC) 10 mg tablet Take 1 tablet by mouth once daily. carbidopa-levodopa (SINEMET 25-100) 25-100 mg per tablet Take 1 tablet by mouth three times a day. metoprolol succinate ER (TOPROL XL) 50 mg 24 hr tablet Take 1 tablet by mouth once daily. lisinopril (ZESTRIL) 5 mg tablet No current facility-administered medications for this visit. Objective Vital Signs: Ht 180.3 cm (5' 11") Wt 86.8 kg (191 lb 5.8 oz) SpO2 95% BMI 26.69 kg/m Orthostatic Vitals: Sitting: BP 125/64 Pulse 64 Standing: BP 119/64 Pulse 67 Weight: 86.8 kg (191 lb 5.8 oz) Height: 180.3 cm (5' 11") No LMP for male patient. Body mass index is 26.69 kg/m . Movement Disorders Scales Performed: MDS-UPDRS Motor subscale condition of exam Medication Off/On/Naiive ON Time of UPDRS 0931 Time of Last Medication 0430 Last Medication Taken DBS Right N/A DBS Left N/A MDS-UPDRS Motor subscale scores Speech 2-Mild. Loss of modulation, diction, or volume, with a few words unclear, but the overall sentences easy to follow. Facial Expression 3-Moderate. Masked facies with lips parted some of the time when the mouth is at rest. Finger Taps Right 2-Mild. a) 3 to 5 interruptions during tapping, b) mild slowing, c) the amplitudedecrements midway in the 10-tap sequence. Finger Taps Left 2-Mild. a) 3 to 5 interruptions during tapping, b) mild slowing, c) the amplitude decrements midway in the 10-tap sequence. Hand Movements Right 2-Mild. a) 3 to 5 interruptions during the movements, b) mild slowing, c) the amplitude decrements midway in the task. Hand Movements Left 2-Mild. a) 3 to 5 interruptions during the movements, b) mild slowing, c) the amplitude decrements midway in the task. Arm Movements Right 2-Mild. a) 3 to 5 interruptions during the movements, b) mild slowing, c) the amplitude decrements midway in the sequence. Arm Movements Left 3-Moderate. a) more than 5 interruptions during the movement or at least one longer arrest (freeze) in ongoing movement, b) moderate slowing, c) the amplitude decrements starting after the 1st supination-pronation sequence. Toe Taps Right 3-Moderate. a) more than 5 interruptions during the tapping movements or at least one longer arrest (freeze) in ongoing movement, b) moderate slowing, c) the amplitude decrements starting after the first tap. Toe Taps Left 3-Moderate. a) more than 5 interruptions during the tapping movements or at least onelonger arrest (freeze) in ongoing movement, b) moderate [...] Freezing 0-Normal. No freezing. Posture Stability Posture 3-Moderate. Stooped posture, scoliosis or leaning [...] microvascular ischemia. Assessment and Plan: Assessment Mr. Dela Cruz is a right-handed 74 year old year old male with Parkinson's disease since 2019. He has been through a lot since I last saw him in July of last year. He has been diagnosed with atrial fibrillation, was hospitalized with strokelike symptoms and most recently was diagnosed with bladder cancer and went through surgery and other treatment. On exam today, his symptoms were slightly worse but this is not unexpected given everything he has been going through. He also does not take the Sinemet consistently. At his last visit we had increased it from three times a day to four times a day but he did not like the way he felt on it so he reduced it back to three times daily but often only takes it twice a day. Other concerns were addressed as noted below. He is not interested inari rehab therapies. The following are the current problems noted and addressed during this visit: Parkinson's disease without dyskinesia or fluctuating manifestations (hcc) (primary encounter diagnosis) Constipation, unspecified constipation type Sialorrhea Parkinson's disease (hcc) Plan 06/05/2024 Visit: Parkinson's disease: Continue current medication schedule-please consistently take it on time Continue your hobbies and keeping your hands and mind busy Please let me know if you change your mind about getting occupational therapy Constipation: Try using Miralax daily. Sialorrhea (drooling): You have been provided with a hand out on drooling. Please do not hesitate to let me know if you have any questions about anything you read. Updated Movement Disorders Medication Schedule: Medications 3am 12pm 5pm Sinemet 1 1 1 Return at or around: 12/06/24 Level of service : 18100 ( 30-39 min). Time spent 38 min on the day of service, which included preparing to see the patient, [id number] patient care, completing clinical documentation, obtaining and/or reviewing separately obtained history, performing a medically appropriate examination, and counseling and educating the patient/family/caregiver. Sade Shine APRN.MANAGER OF SECURITY documented in this encounterAdams County [facility] Center07-15-2024 Telephone encounter Note * Telephone Encounter - Radha Piña MA - 04/29/2024 9:01 AM EDT Patient picked up forms this morning. Radha Piña MA [facility]07-15-2024 Miscellaneous Notes* Telephone Encounter - Radha Piña MA - 04/29/2024 9:01 AM EDT Patient picked up forms this morning. Radha Piña MA * Telephone Encounter - Kandice Luna RN - 04/29/2024 8:05 AM EDT Patient returns call and provider message reviewed. Patient verbalizes he is not understanding why the form is not being filled out. Reviewed note multiple times as noted below. Patient reports that he will be in to picker forms and last OV note. Kandice Luan, JESSIKA * Telephone Encounter - Malgorzata Benjamin MA - 04/26/2024 12:51 PM EDT Eli Samuels reviewed forms from [place] . She is a former [facility] provider. She states that we are not to fill these out. He can picker the last office visit along with the forms. Left message for patient to return call. Malgorzata Benjamin Ma * Telephone Encounter - Daniella Mendoza LPN - 04/25/2024 8:16 AM EDT Forms have been forwarded to Eli Samuels NP desk due to [place] being out. * Telephone Encounter - Daniella Mendoza LPN - 04/16/2024 3:45 PM EDT Forms on providers desk, waiting to complete. * Telephone Encounter - Chidi Stark LPN - 04/16/2024 3:11 PM EDT Checking status on below. Chidi Stark LPN * Telephone Encounter - Malgorzata Benjamin MA - 03/28/2024 11:18 AM EDT Type of form: [employer] Dis[employer] benefits Questionnaires(4 forms) Form received via walk in When form is completed, call patient Form has been forwarded to DEBBY Trevizo MA documented in this encounterAdams County [facility] Center07-15-2024 Telephone encounter Note * Telephone Encounter - Kandice Luna RN - 04/29/2024 8:05 AM EDT Patient returns call and provider message reviewed. Patient verbalizes he is not understanding why the form is not being filled out. Reviewed note multiple times as noted below. Patient reports that he will be in to picker forms and last OV note. Kandice Luna RN [facility]07-12-[facility] Telephone encounter Note* Telephone Encounter - Malgorzata Benjamin MA - 04/26/2024 12:51 PM EDT Eli Samuels reviewed forms from [place] . She is a former [place] provider. She states that we are not to fill these out. He can picker the last office visit along with the forms. Left message for patient to return call. Malgorzata Benjamin Ma [facility]07-11-2024 Telephone encounter Note* Telephone Encounter - Daniella Mendoza LPN - 04/25/2024 8:16 AM EDT Forms have been forwarded to Eli Samuels [employer] desk due to [place] being out. [facility]07-02-2024 Telephone encounter Note* Telephone Encounter - Daniella Mendoza LPN - 04/16/2024 3:45 PM EDT Forms on providers desk, waiting to complete. [facility]07-02-2024 Telephone encounter Note* Telephone Encounter - Chidi Stark LPN - 04/16/2024 3:11 PM EDT Checking status on below. Chidi Stark LPN [facility]06-13-2024 Telephone encounter Note* Telephone Encounter - Malgorzata Benjaimn MA - 03/28/2024 11:18 AM EDT Type of form: Dept of [place] Disability benefits Questionnaires(4 forms) Form received via walk in When form is completed, call patient Form has been forwarded to DEBBY Trevizo MA [facility]05-15-2024 Telephone encounter Note* Telephone Encounter - Rabia Zamorano RN - 02/28/2024 3:24 PM EDT Patient notified. Rabia Zamorano RN [facility]05-15-2024 Miscellaneous Notes* Telephone Encounter - Rabia Zamorano RN - 02/28/2024 3:24 PM EDT Patient notified. Rabia Zamorano RN * Telephone Encounter - Celso Hunt MD - 02/28/2024 3:14 PM EDT sent * Telephone Encounter - Rabia Zamorano RN - 02/28/2024 3:12 PM EDT Patient reports he is out of his triamterene-hctz (Maxide) and has been out for 2 days. Requesting refill as pended. Please call patient once script has been sent, please. [phone] Thank you. documented in this encounterAdams [facility]05-[facility]24 Telephone encounter Note * Telephone Encounter - Celso Hunt MD - 02/28/2024 3:14 PM EDT sent [facility]05-15-2024 Telephone encounter Note* Telephone Encounter - Rabia Zamorano RN - 02/28/2024 3:12 PM EDT Patient reports he is out of his triamterene-hctz (Maxide) and has been out for 2 days. Requesting refill as pended. Please call patient once script has been sent, please. [phone] Thank you. [facility]04-30-2024 History of Present illness Narrative* Yanira Redd MD - 02/13/2024 11:20 AM EDT Images from the original note were not included. [facility] [place] SECTION OF REGIONAL CARDIOLOGY OUTPATIENT VISIT DATE 02/13/2024 OUTPATIENT VISIT TYPE ESTABLISHED PRIMARY CARE PHYSICIAN: Celso Hunt [address] [place] [address] HISTORY OF PRESENT ILLNESS: Mr. Dela Cruz is a 73 year old male, history of recent stroke, hypertension, Parkinson's, TIAs presents for follow-up visit. He presented to [facility] on 10/19/2023 with blurred vision that started approximately 5:30 in the morning while watching television. Was not able to form words properly. He called 911 as he was concerned for TIA. CT brain without contrast showed no acute intracranial process, chronic involutional and white matter changes. CTA head and neck with contrast showed no evidence of significant stenosis or occlusion of carotid or vertebral arteries in the neck, no evidence of large vessel occlusion and absentee-shawnee of Peng. TTE 10/19/2023: EF 60%, grade 1 DD, negative bubble study. MRI brain showed acute lacunar infarct right cerebellum with mild chronic involutional and white matter changes. He was noted to have atrial fibrillation. A Zio patch was done on 10/24/23 to 11/07/2023: 40-2 22. 3 VT runs: fastest 6 beats long with max [id number]: Longest 6 beats run rate 132. PSVT runs-5 beats at 194 bpm: Longest 20.1 seconds long HR 112. Less than 1% SVE as well as SVE triplets. Some 1% VE, VE couplets, ventricular bigeminy and trigeminy were present. He denies chest pain, SOB, palpitations, orthopnea, PND, leg swelling, lightheadedness, syncope. Hereports compliance and good tolerance on eliquis. He reports some mild fatigue. PAST MEDICAL HISTORY Diagnosis Date Atrial fibrillation [...] Father ALLERGIES No Known Allergies CURRENT MEDICATIONS: apixaban (ELIQUIS) 5 mg tab(s) Take 1 tablet by mouth two times a day. metoprolol succinate ER (TOPROL XL) 50 mg 24 hr tablet Take 1 tablet by mouth once daily. probenecid-colchicine (COL-PROBENECID) 500-0.5 mg per tablet Take 1 tablet by mouth two times a day. ELIQUIS 5 mg tab(s) atorvastatin (LIPITOR) 80 mg tablet lisinopril (ZESTRIL) 5 mg tablet levothyroxine (SYNTHROID) 50 mcg tablet Take 1 [...] 1 tablet by mouth four times daily. PHYSICAL EXAMINATION: BP 116/68 Pulse (!) 58 Ht 180.3 cm (5' 11") Wt 86.2 kg (190 lb 0.6 oz) SpO2 95% BMI 26.50kg/m General: Appears comfortable in no apparent cardiopulmonary distress Neck: No JVD, no bruits CVS: S1, S2, No m/r/g Chest: CTAB Abd: Soft, nontender, no masses, BS present Ext: No pedal edema, pedal pulses 2+ bilaterally Neuro: No focal neurological deficits ASSESSMENT/PLAN: 1. New onset atrial fibrillation (HCC) - ICD9: 427.31, ICD10: I48.91 [id number] 5. He reports heart rates in the 50s at home. Regular rhythm on exam. - On Eliquis 5 mg p.o. bid. Denies any bleeding or falls or trauma. - On metoprolol 50 mg po daily. He will cut back his metoprolol dose to 25 mg po daily (half a metoprolol tablet once a day) given heart rates in the 50s and fatigue. He will keep us updated on how he's feeling. - RTC in 6 months, sooner if medically necessary. 2. Recent cerebrovascular accident In the setting of paroxysmal afib. - As above 3. Nonsustained VT Recommended stress testing however patient is declining. He states that he will keep us informed when he is ready to have this testing done. - On metoprolol Yanira Redd MD, [facility] documented in this encounterAdams [facility]04-11-2024 History of Present illness Narrative* Kim Warner PA-C - 01/25/2024 9:02 AM EDT This note was created using Cloudscalingriter. Subjective Traci Pandya Jose De Jesus Bran is a 73 year old male. HPI Presents with right ankle and foot pain as well as left knee pain for 3 days. He states he has a history of chronic gout and this feels very similar. Denies any falls or injuries to his ankle or knee. States his knee really hurts when he tries to bear weight but when he sitting it is better. He denies fever or chills. Review of Systems Constitutional: Negative. HENT: Negative. Respiratory: Negative. Cardiovascular: Negative. Gastrointestinal: Negative. Musculoskeletal: Right ankle and left knee pain All other systems reviewed and are negative. PAST MEDICAL HISTORY Diagnosis Date Atrial fibrillation [...] of left eye REM sleep behavior disorder Current Outpatient Medications Medication Sig Dispense Refill apixaban (ELIQUIS) 5 mg tab(s) Take 1 tablet by mouth two times a day. 180 tablet 3 metoprolol succinate ER (TOPROL XL) 50 mg 24 hr tablet Take 1 tablet by mouth once daily. 30 [id number] probenecid-colchicine (COL-PROBENECID) 500-0.5 mg per tablet Take 1 tablet by mouth two times a day. 60 tablet 5 ELIQUIS 5 mg tab(s) atorvastatin (LIPITOR) 80 mg tablet lisinopril (ZESTRIL) 5 mg tablet levothyroxine (SYNTHROID) 50 mcg tablet Take 1 tablet by mouth once daily. Take on empty stomach. For Thyroid. 90 tablet 3 amLODIPine (NORVASC) 10 mg tablet Take 1 tablet by mouth once daily. 90 tablet 3 triamterene-hydroCHLOROthiazide (MAXZIDE) 75-50 mg per tablet Take 1 tablet by mouth once daily. 90tablet 1 aspirin, enteric coated (ADULT LOW DOSE ASPIRIN) 81 mg EC tablet Take 1 tablet by mouth once daily.100 tablet 3 predniSONE (DELTASONE) 10 mg tablet Take 4 tabs daily for 3 days, then 2 tabs daily for 3 days, then 1 tab daily for 3 days with food. 21 tablet 0 carbidopa-levodopa (SINEMET 25-100) 25-100 mg per tablet Take 1 tablet by mouth four times daily. 360 tablet 3 No current facility-administered medications for this visit. PAST SURGICAL HISTORY Procedure Laterality Date L'SCOPE CHOLECYSTECTOMY 09/25/2022 FAMILY HISTORY Problem Relation Age of Onset Ischemic Heart Disease Mother 60 other (rheumatoid arthritis) Mother No Known Problems Father Social History Tobacco Use Smoking status: Never Smokeless tobacco: Never Vaping Use Vaping Use: Never used Substance Use Topics Alcohol use: No Drug use: No Objective BP 142/68 Pulse 78 Temp 36.2 C (97.1 F) Resp 16 Wt 87.7 kg (193 lb 5.5 oz) SpO2 97% BMI26.97 kg/m Physical Exam Vitals reviewed. Constitutional: Appearance: Normal appearance. HENT: Head: Normocephalic and atraumatic. Musculoskeletal: Comments: Exam of the right ankle reveals mild swelling to the lateral malleolus. Minimal tenderness palpation. Has pain with range of motion of the joint. No other tenderness of the foot. Pedal pulses 2+. Exam of the left knee reveals some mild swelling with erythema. Has pain on flexion and extension as well as ambulating. No laxity noted. Skin: General: Skin is warm and dry. Neurological: Mental Status: He is alert. Assessment and Plan ASSESSMENT/PLAN: 1. Chronic gout of multiple sites, unspecified cause - ICD9: 274.02, ICD10: [id number] Will treat with prednisone. States he has done well on this previously. Follow- up with PCP if not improving or worsening. Patient agreeable. Kim Warner PA-C documented in this encounterAdams [facility] Center03-25-2024 Miscellaneous Notes* Telephone Encounter - Bailee Montes MSW - 01/08/2024 12:13 PM EDT Braulio spoke with patient and he will stop in tomorrow 01/08 @12:30 to picker tax documents that he haddropped off for [employer]. Patient notes that [employer] also sent him a letter and he will bring that in to tomorrow aswell. Patient notes that it looks like letter is asking for income documents that were already sentin to [employer]. documented in this encounterAdams County [facility] Center03-20-2024 Miscellaneous Notes* Telephone Encounter - Bailee Montes MSW - 01/03/2024 1:19 PM EDT Patient dropped off tax, Social Security, and W2 from employer to [employer]. Braulio will fax income forms to [employer] for [employer] P[employer] assistance. These income documents are all that was requested when Braulio checked with [employer] to see about completing processing PAP forms. [employer] fax#[phone]. documented in this encounterAdams County [facility] Center03-14-2024 Miscellaneous Notes* Telephone Encounter - Bailee Montes MSW - 12/28/2023 9:21 AM EDT Braulio let patient know that [employer] was requesting the most recent tax return and or SSA statement along with most recent pay stubs. We had turned in most recent pay stubs and then bank statement with SSA amount circled. [employer] states that they need the actual SSA statement itself or mostrecent tax return. Patient reports that he is having his taxes done this next week on Monday and will then be able tobring in either the SSA statement or tax forms. Patient states that his SSA statements are all together with his tax info and does not want to take apart forms until after his taxes are done on Monday. Patient will let know when he has income forms ready to bring in to to send to [employer]. * Telephone Encounter - Bailee Montes MSW - 12/27/2023 11:21 AM EDT Braulio received message from [employer] for patient Eliquis. Company is asking for either most recent tax return or pay stubs and social security statement. Braulio left message for patient to return call to discuss. documented in this encounterAdams County [facility] Center03-06-2024 Miscellaneous Notes* Telephone Encounter - Bailee Montes MSW - 12/20/2023 11:32 AM EST Patient brought in [employer] application for Eliquis, this appears to have been sent to jana Redd office. Sw and patient have already applied to [employer] for assistance with Eliquis. See Braulio note 12/06/23.Dr. Hunt/Braulio waiting to hear back in regards to application approval/denial. Sw noted to patient that she will forward this note to Dr. Redd to let her know this information. * Telephone Encounter - Bailee Montes MSW - 12/19/2023 11:33 AM EST Patient called [employer] and notes that he received [employer] and is "not sure what papers are asking for." Patient will drop off forms at [facility] and ask for them to be placed in mailbox. Sw noted that she would review forms and then let patient know what they say is going on with assistance for patient Eliquis. Patient notes that it is okay for Braulio to call his work as well. documented in this encounterAdams County [facility] Medical Center02-23-2024 Miscellaneous Notes* Telephone Encounter - Odalys Marin LPN - 12/08/2023 2:[address] [facility] is sending forms asking to now give the patient wrist splints. We did not order and are not ordering. Fax has been returned to them stating this. documented in this encounterAdams County Regional Medical Center02-23-2024 History of Present illness Narrative* Odalys Marin LPN - 12/08/2023 10:07 AM EST Faxed application as requested. * Celso Hunt MD - 12/06/2023 4:49 PM EST Printed eliquis script written * Bailee Montes MSW - 12/06/2023 3:43 PM EST Patient brought in current pharmacy expenditure print out for Eliquis PAP forms. Patient also brought in his bank statement and 2 pay checks for work and [employer]. Sw noted will have to see if [employer] [facility] [employer] notes patient has met their out of pocket spend out on prescriptions. Patient did not have down amount that he receives from [employer] so he may need to spend out a little more on Eliquis to meet 3% out of pocket on prescriptions. Sw placed forms in Dr. Hunt mailbox in old medical records. Once prescription has been completed, forms may be sent to company with attached fax cover sheet. Will then see what company has to say in regards to spend out on prescriptions at pharmacy. documented in this encounterAdams County [facility] Center02-20-2024 Miscellaneous Notes* Telephone Encounter - Bailee Montes MSW - 12/05/2023 9:34 AM EST Sw spoke with patient and he reports that he believes that he has his paperwork together for [employer]-Eliqu[employer]. Sw also noted patient should bring in his income statement from [facility]. Patient notes that he has bankstatement that shows income. Patient will stop and see Sw tomorrow 12/06 @3:30. documented in this encounterAdams County Regional Medical Center02-20-2024 History of Present illness Narrative* Mamadou Wu PA-C - 12/05/2023 8:00 AM EST 73 year old male with c/o here for follow up Right lacunar infarct Hx TIA Essential hypertension (primary encounter diagnosis) Hyperlipidemia, unspecified hyperlipidemia type Bilateral carotid artery stenosis Cardiovascular interval hx: 11/21/[address] Yanira Redd: recommended stress test ZIO monitor Enrollment Dates: 10/24/2023-11/07/2023 3 VT runs: Fastest 6 beats long with max rate 222: Longest 6 beats run rate 132. PSVT runs-5 beats at 194 bpm: Longest 20.1 seconds long HR 112. Less than 1% SVE as well as SVE triplets. Some 1% VE, VE couplets, ventricular bigeminy and trigeminy were present. Admitted [facility] 10/19-10/21/2023 acute lacunar infarct right cerebellum and mild chronic involutional changes with symptom resolution < 1 week with no residual changes. 08/19/2024 chest x-ray 1 view: No acute cardiopulmonary process identified 10/19/2023 CT brain/head without contrast: No acute intracranial process identified, chronic involutional and white matter changes. 08/19/2024 CTA head and neck with IV contrast: No evidence of significant stenosis or occlusion in the carotid or vertebral arteries of the neck. No evidence for large vessel occlusion in the absentee-shawnee of Peng region. Multinodular thyroid goiter 10/19/2023 MRI: Punctate focus of restricted diffusion in the right posterior cerebrum. Multiple fociand small zones of increased T2 flair signal in the bilateral cerebral white matter. No intracranial hemorrhage identified. CSF spaces: Mild volume loss, no significant midline shift or other mass effect. No extra fluid collection. Major intracranial flow voids are maintained. Addendum: Acute lacunar infarct in the right cerebellum Mild chronic involutional and white matter changes. 10/19/2023 echocardiogram: LV size and LVSF WNL, EF 60%, stage I diastolic dysfunction. No regional wall motion abnormalities. IV size and RV SF WNL Bilateral atria normal. Contrast study with bubble negative for intra-atrial shunt No significant valvular heart disease Normal aortic root size 05/31/2021 carotid US: RIGHT: ICA 20-39%, VA [...] comparison 05/01/2018 Current meds: Amlodipine 10mg daily ASA EC 81mg daily Apixaban 5mg twice a day Atorvastatin 80mg daily Lisinopril 5mg daily Metoprolol 50mg daily Potassium 20mEq daily Triamterene 75-50mg daily Use of NTG: N/A Chest pain, arm, jaw pain, neck, or upper back pain suggestive of angina: No. SOB: No Dyspnea with exertion: No orthopnea: No Cough : No racing or irregular heartbeats: No palpitations: No, did not notice anything different during ZIO syncopal sx: No Headache: No Unexplainable fatigue No. 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 no heavy living. Leg swelling: No Nausea: No diaphoresis: No Heartburn: No Claudication: No Smoking: No Following Low cholesterol, high fiber diet? No If on statin: muscle aches? No If on statin: GI sx or diarrhea? No Additional history notes Last 3 Encounter BP Readings: Date: BP: 11/24/2022 124/66 10/18/2022 108/70 09/28/2022 124/62 Last 2 Encounter Wt Readings: Date: Wt: 12/27/2022 92.3 kg (203 lb 8 oz) 11/24/2022 89.8 kg (198 lb) Lab review: 10/19/2023 CBC abnormals: WBC 13.3-neutrophil percent 76.2-1% 12.7-neutrophils 10.1 PT/INR, PTT WNL Chemistry abnormals: BUN 28-CRE 1.40, EGFR 52-GLU 112 UA abnormals: SG 1.020, RBC 10-25, WBC 10-25, bacteria 0, squamous epi 0, mucus 0 , Lab summary: 10/21/2023 CBC: WBC 9.1-Hgb 13.7-HCT 41.6-PLT 179 Chemistries: NA 138-CL 104-K3.1L-CO2 27.0-BUN 21 H-CRE 1.03-GLU 89 10/20/2023 uric acid 7.8H Component Latest Ref Rng & Units 10/31/2019 [...] Rem sleep behavior disorder Neurologist: Dr. 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 Yes. Thyroid pain: No. Mass effect: No. Change in energy level/ fatigue? 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 Fatty liver Liver enzymes as above 09/25/2022 CT abdomen pelvis with IVC: Normal [...] present in the posterior aspect of the bladdermeasuring 1.4 cm and 1.1 cm, additional multiple tiny stones present in the dependent and posterioraspect of the bladder. Small area of mucosal thickening/trabeculation within the right side of the bladder wall Anxiety No issues. Gout with manifestations Current medications: Allopurinol 100mg daily stopped as patient associates with onset of Parkinson's 10/23/2023 in [facility] Care for gout attack right foot prednisone taper Urine stream is slow, intermittency, some hesitancy, nocturia x 2, occasional dribbling. HISTORIES FAMILY HISTORY Problem Relation Age of Onset Ischemic Heart Disease Mother 60 other (rheumatoid arthritis) Mother No Known Problems Father PAST MEDICAL HISTORY Diagnosis Date Atrial fibrillation (HCC) Calculus of gallbladder without cholecystitis without obstruction 11/30/2017 Gallbladder polyp 11/30/2017 Patient declines follow up. Aware of risks of not diagnosing a gall bladder malignancy Gout History of TIAs 2007 negative workup. 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 30 [id number] probenecid-colchicine (COL-PROBENECID) 500-0.5 mg per tablet Take 1 tablet by mouth two times a day. 60 tablet 5 ELIQUIS 5 mg tab(s) atorvastatin (LIPITOR) 80 mg tablet lisinopril (ZESTRIL) 5 mg tablet levothyroxine (SYNTHROID) 50 mcg tablet Take 1 tablet by mouth once daily. Take on empty stomach. For Thyroid. 90 tablet 3 amLODIPine (NORVASC) 10 mg tablet Take 1 tablet by mouth once daily. 90 tablet 3 triamterene-hydroCHLOROthiazide (MAXZIDE) 75-50 mg per tablet Take 1 tablet by mouth once daily. 90tablet 1 aspirin, enteric coated (ADULT LOW DOSE ASPIRIN) 81 mg EC tablet Take 1 tablet by mouth once daily.100 tablet 3 carbidopa-levodopa (SINEMET 25-100) 25-100 mg per tablet Take 1 tablet by mouth four times daily. 360 tablet 3 No current facility-administered medications for this visit. DTaP,Tdap,Td Vaccine(1 - Tdap) Never done Shingrix Vaccine(1 of 2) Never done RSV Vaccine(1 - 1-dose 60+ series) Never done Colorectal Cancer Screening due on 11/30/2018 Advance Directive Discussion due on 10/16/2023 Depression Assessment due on 10/16/2023 EXAM: BP 118/64 Pulse (!) 58 Resp 16 Wt 89.4 kg (197 lb) SpO2 98% BMI 27.48 kg/m Pleasant older man of medium build in no acute distress. Alert and oriented [...] warm and pink with prompt capillary refill. Moderate tremor bilateral hands. Expressive verbally, smiles. Wide based gate. ASSESSMENT/PLAN: 1. RIND (reversible ischemic neurologic deficit) (HCC) - ICD9: 434.91, ICD10: I63.9 (primary diagnosis) May have some terminal worker effects as notes some word recall issues but only for a few moments and able to grasp word. Good BP control and on maximum statin dose 2. Parkinson's disease with dyskinesia and fluctuating manifestations - ICD9: 332.0, ICD10: G20.B2 Following with neuro 3. New onset atrial fibrillation (HCC) - ICD9: 427.31, ICD10: I48.91 Controlled rhythm 4. 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 Right-sided cerebellar lacunar infarction (HCC) - ICD9: 434.91, ICD10: I63.81 As above 6. calculus of kidney - ICD9: 592.0, ICD10: N20.0 7. Bladder stones - ICD9: 594.1, ICD10: N21.0 No treatment or consult has been placed. Discussed possible issues with obstruction- he has no current issues and does not want urology consult currently Office Visit on 12/05/23 PHOSPHORUS INORGANIC COMP METABOLIC PANEL LIPID PANEL BASIC F/u 6 months or as needed Some of this note may have been copied and pasted for the purpose of history context and comparisonand has been adjusted for changes in prior data. Mamadou Wu PA-C documented in this encounterAdams County [facility] Medical Center02-15-2024 History of Present illness Narrative* Bailee Montes MSW - 11/30/2023 3:52 PM EST Sw left message for patient to remind him if his is also receiving income from social security, he should bring that statement along with him when he comes to see SW. Sw will await call back from patient in regards to setting up appt time to meet with SW for completing below PAP forms. * Bailee Montes MSW - 11/28/2023 9:42 AM EST Patient brought in [facility] pharmacy print out. Sw and patient reviewed the 3% out of pocket for currentcalendar year. Patient still has about $357 spend out on prescriptions to meet the [place] [employer] guideline. Patient reports that he will fill the Eliquis again and that should meet that guideline. Sw reviewed income guideline and patient is well within income guideline of $43,000. Patient notes that he will bring in 2 pay stubs next week and refill his Eliquis and bring in pharmacy report next week. Sw noted that once this is complete, Sw will have Dr. Hunt write out Eliquis prescription on form and then fax [place] [employer] application to company. Sw also wrote what is needed for patient to bring back in to . [facility] Miscellaneous Notes* Telephone Encounter - Bailee Montes MSW - 11/23/2023 9:59 AM EST Braulio spoke with patient and he will go to [facility] and ask for print out of how much he has spent on prescriptions so far this year. Patient notes that he also has the coupon from [facility] that he is going to take to [facility] today to see about free 30 day supply of Eliquis. Patient made appt with Braulio for Monday, 11/28 @9am to bring in print out from pharmacy. Will review how much patient has spent on prescriptions in accordance with yearly income. * Telephone Encounter - Bailee Montes MSW - 11/22/2023 3:07 PM EST Sw received Eliquis PAP forms. There was no print out from pharmacy noting out of pocket spend out on prescriptions. Sw had noted in message to patient that there is an out of pocket amount needed toattach and meet guideline before applying. Sw left message for patient to return call to discuss. documented in this encounterAd[facility]02-06-2024 History of Present illness Narrative* Yanira Redd MD - 11/21/2023 9:51 AM EST Images from the original note were not included. [facility] [place] SECTION OF REGIONAL CARDIOLOGY OUTPATIENT VISIT DATE 11/21/2023 OUTPATIENT VISIT TYPE NEW PRIMARY CARE PHYSICIAN: Celso Hunt [address] [place] [address] Patient is being seen at the request of the referring physician for atrial fibrillation management. HISTORY OF PRESENT ILLNESS: Mr. Dela Cruz is a 73 year old male, history of recent stroke, hypertension, Parkinson's, TIAs presents for post hospital visit follow-up. He presented to [facility] on 10/19/2023 with blurred vision started approximately 5:30 in the morning while watching television. Was not able to form words properly. He called 911 as he was concerned forTIA. CT brain without contrast showed no acute intracranial process, chronic involutional and white matter changes. CTA head and neck with contrast showed no evidence of significant stenosis or occlusion of carotid or vertebral arteries in the neck, no evidence of large vessel occlusion and absentee-shawnee of Peng. TTE 10/19/2023: EF 60%, grade 1 DD, negative bubble study. MRI brain showed acute lacunar infarct right cerebellum with mild chronic involutional and white matter changes. He was noted to have atrial fibrillation. On eliquis. A Zio patch was done on 10/24/23 to 11/07/2023: 40-2 22. 3 VT runs: Fastest 6 beats long with max [id number]: Longest 6 beats run rate 132. PSVT runs-5 beats at 194 bpm: Longest 20.1 seconds long HR 112. Less than 1% SVE as well as SVE triplets. Some 1% VE, VE couplets, ventricular bigeminy and trigeminy were present. He denies chest pain, SOB, palpitations, orthopnea, PND, leg swelling, lightheadedness, syncope. EKG today shows NSR HR 78 PAST MEDICAL HISTORY Diagnosis Date Calculus of gallbladder without cholecystitis without obstruction 11/30/2017 Gallbladder polyp 11/30/2017 Patient declines follow up. Aware of risks of not diagnosing a gall bladder malignancy Gout History of TIAs 2006 negative workup. bp etiology Hypertension Parkinson's disease Personal history of kidney stones 2005 PAST SURGICAL HISTORY Procedure Laterality Date L'SCOPE CHOLECYSTECTOMY 09/25/2022 Social History Tobacco Use Smoking status: Never Smokeless tobacco: Never Vaping Use Vaping Use: Never used Substance Use Topics Alcohol use: No Drug use: No FAMILY HISTORY Problem Relation Age of Onset Ischemic Heart Disease Mother 60 other (rheumatoid arthritis) Mother ALLERGIES No Known Allergies CURRENT MEDICATIONS: probenecid-colchicine (COL-PROBENECID) 500-0.5 mg per tablet Take 1 tablet by mouth two times a day. ELIQUIS 5 mg tab(s) atorvastatin (LIPITOR) 80 mg tablet lisinopril (ZESTRIL) 5 mg tablet levothyroxine (SYNTHROID) 50 mcg tablet Take 1 [...] 1 tablet by mouth four times daily. PHYSICAL EXAMINATION: BP 122/74 Pulse 78 Ht 180.3 cm (5' 11") Wt 88 kg (194 lb 0.1 oz) SpO2 97% BMI 27.06 kg/m General: Appears comfortable in no apparent cardiopulmonary distress Neck: No JVD, no bruits CVS: S1, S2, No m/r/g Chest: CTAB Abd: Soft, nontender, no masses, BS present Ext: No pedal edema, pedal pulses 2+ bilaterally Neuro: No focal neurological deficits ASSESSMENT/PLAN: 1. New onset atrial fibrillation (HCC) - ICD9: 427.31, ICD10: I48.91 [id number] 5. In sinus rhythm. Asymptomatic. - On Eliquis 5 mg p.o. twice daily - Switch atenolol to metoprolol 50 mg po daily - RTC in 3 months, sooner if medically necessary 2. Recent cerebrovascular accident In the setting of paroxysmal afib. - As above 3. Nonsustained VT Recommended stress testing however patient is declining. He states that he will keep us informed when he is ready to have this testing done. -Atenolol was switched to metoprolol Yanira Redd MD, [facility] documented in this encounterAd[facility]02-01-2024 Miscellaneous Notes* Telephone Encounter - Odalys Marin LPN - 11/16/2023 5:36 PM EST Confirmed with patient that he was notified of appt. * Telephone Encounter - Daniella Mendoza LPN - 11/15/2023 4:12 PM EST Left detailed message on identifiable voicemail * Telephone Encounter - Celso Hunt MD - 11/15/2023 2:46 PM EST Still shows a lot of extra beats etc. Neesd to stay on meds. Needs to see cardiology sooner than February when it is scheduled. See if it can be moved up. documented in this encounterAd[facility]01-06-2024 Progress note Author Jonah Calix [facility] October 21, 2023 10:20am Note Date/Time October 21, 2023 7: 49am [facility] Medical Records Department [facility] [place] [address] Progress Note - Hospitalist 10/21/23 0748 MR#: [id number] Acct: [id number] Name: TRACI DELA CRUZ Rep #:[id number] : 1950 73 From: Jonah Calix MD PCP: Dr. Celso Hunt MD Status:ADM I N Location: [place] [address] Reason for Visit Reason for Visit: Diagnoses Transient cerebral ischemic attack, unspecified (10/19/23) Essential (primary) hypertension (10/19/23) Unspecified atrial fibrillation (10/19/23) Cerebral infarction, unspecified (10/19/23) Personal history of other diseases of the nervous system and sense organs (10/19/23) Subjective Subjective Patient seen. Complains of foot pain attributed to gout. Uric acid levels cameback elevated. Patient given Solu-Medrol for acute inflammation and started on allopurinol for the hyperuricemia Objective Data Objective Data Vital Signs: Vital Signs Temp Pulse Resp BP Pulse Ox O2 Del Method 98.3 F 70 16 131/68 H 96 Room Air 10/21/23 05:30 10/21/23 05:30 10/21/23 05:30 10/21/23 05:30 10/21/23 05:30 10/21/23 05:30 Oxygen Delivery Method Room Air Weight: 89 kg Body Mass Index (BMI) 27.4 Intake & Output: Intake and Output for Last 24 Hours 10/19/23 10/20/23 10/21/23 23:59 23:59 23:59 Intake Total 1415.00 / 1655.00 3453.33 / 3453.33 Balance 1415.00 / 1655.00 3453.33 / 3453.33 Lab / Micro Data 10/20/23 05:50 10/21/23 06:13 Labs: Laboratory Results - last 24 hr 10/20/23 05:50: Uric Acid 7.8 H 10/21/23 06:13: Sodium 138, Potassium 3.1 L, Chloride 104, Carbon Dioxide 27.0, Anion Gap 7, BUN 21 H, Creatinine 1.03, Estim Creat Clear Calc 66.00, Est GFR (MDRD) Af Amer 90, Est GFR (MDRD) Non-Af 75, BUN/Creatinine Ratio 20.4 H, Glucose 89, Calcium 8.7 Micro: Microbiology 10/19/23 08:40 Urine, Clean Catch Urine Culture - Preliminary Culture exhibits no growth. Rhythm Strip Rhythm Strip: A-fib Rate: 113 Ectopy: None Physical Exam Narrative GENERAL: cooperative HEENT: Atraumatic; normocephalic EYES; Anicteric, Normal Conjunctiva NECK; supple, normal thyroid, RESPIRATORY: Diminished to auscultation CARDIOVASCULAR: Irregular S1-S2 GI: soft, normoactive bowel sounds, : No Renal angle tenderness; EXTREMITIES: No edema, no clubbing, MUSCULOSKELETAL: no muscle wasting NEURO: Awake; no lateralizing signs. SKIN: No Rash PSYCH; Flat affect Assessment & Plan Assessment/Plan (1) Brain TIA: (2) Atrial fibrillation: (3) History of Parkinson's disease: PLAN: Plan Patient is a 73-year-old gentleman presenting with speech difficulty 1. Acute CVA ? Patient presented with speech difficulty. Initial initial head CT was unremarkable however subsequent MRI demonstrated acute lacunar infarct in the right cerebellum with mild chronic involutional and white matter changes. Patient started on dual antiplatelet therapy with consultation placed to neurology. As part of his management ordered CT angio, and 2D echo. Also ordered PT/OT/ST 2. Parkinson's disease I did continue patient antihypertensive medication 3. A-fib ? Patient does not have any history of previous A-fib was found to be in A-fib on admission. Admitted to telemetry for continuous monitoring. Started on low-dose antiplatelet therapy 4. Hypertension - Blood pressure controlled, home medications continued with dose adjustment as needed 5. Acute kidney injury ? Patient creatinine from 09/25/2022 was 1.15, creatinine on admission was 1.40 started on IV fluid with subsequent monitoring of electrolytes ordered 6. Hypothyroidism - Patient is on levothyroxine home dose continued 7. DVT prophylaxis ? Started on apixaban for his A-fib 8. Hypokalemia -Corrected per protocol, repeat labs ordered for monitoring 9. Acute cystitis ? Patient started on ceftriaxone urine culture sent Time spent in the patient's overall evaluation,decision-making process, review of diagnostic data, adjustment of management, discussion with other providers, nursing nursing and ancillary staff involved in patient's care documentation, 35 Minutes Charges/Coding Visit Charges Inpatient E&M: 57487 Subs Hosp L2 10/21/23 1020 <Electronically signed by Jonah Calix MD> Cosigner Signature (if applicable): CC: ~ Signed [facility] Work Phone: 1(998) 874-895101-06-2024 Discharge summary Author Jonah Calix [facility] October 21, 2023 10:25am Note Date/Time October 21, 2023 10 :19am [facility] Medical Records Department [address] [place] [address] Discharge Summary 10/21/23 1019 MR#: [id number] Acct: [id number] Name: TRACI DELA CRUZ Jr. Rep #:[id number] : 1950 73 From: Jonah Calix MD PCP: Dr. Celso Hunt MD Status:ADM I N Location: [place] [address] Providers Date of Admission: 10/19/23 Date of Discharge: 10/21/23 Primary Care Physician: Dr. Celso Hunt MD Consultations 10/19/23 12:01 Consult: Cardiology Routine Consulting Provider: Bryant Loredo Reason for Consult: NEW ONSET AFIB EMERGENT Consult: No MD Notified: Yes Date Notified: 10/19/23 Time Notified: 10:11 Method of Notification: Text Consult: Tele-Neurology Routine Consulting Provider: [facility] Reason for Consult: Acute Ischemic Stroke/TIA EMERGENT Consult: No Notified: Yes Date Notified: 10/19/23 Time Notified: 13:12 Method of Notification: Answering Service Nursing Unit Staff Notify [facility] of Tele-Neurology Consult: Yes Reason For Visit: CVA Diagnosis Discharge Diagnosis (1) Brain TIA: Status: Acute Code(s): G45.9 - Transient cerebral ischemic attack, unspecified (2) Atrial fibrillation: Status: Acute Code(s): I48.91 - Unspecified atrial fibrillation (3) History of Parkinson's disease: Status: Acute Code(s): Z86.69 - Personal history of other diseases of the nervous system and sense organs Plan Patient is a 73-year-old gentleman presenting with speech difficulty 1. Acute CVA ? Patient presented with speech difficulty. Initial initial head CT was unremarkable however subsequent MRI demonstrated acute lacunar infarct in the right cerebellum with mild chronic involutional and white matter changes. Patient started on dual antiplatelet therapy with consultation placed to neurology. As part of his management ordered CT angio, and 2D echo. Also ordered PT/OT/ST 2. Parkinson's disease I did continue patient antihypertensive medication 3. A-fib ? Patient does not have any history of previous A-fib was found to be in A-fib on admission. Admitted to telemetry for continuous monitoring. Started on low-dose antiplatelet therapy 4. Hypertension - Blood pressure controlled, home medications continued with dose adjustment as needed 5. Acute kidney injury ? Patient creatinine from 09/25/2022 was 1.15, creatinine on admission was 1.40 started on IV fluid with subsequent monitoring of electrolytes ordered 6. Hypothyroidism - Patient is on levothyroxine home dose continued 7. DVT prophylaxis ? Started on apixaban for his A-fib 8. Hypokalemia -Corrected per protocol, repeat labs ordered for monitoring 9. Acute cystitis ? Patient started on ceftriaxone urine culture sent ? Patient urine cultures exhibited no growth antibiotics discontinued 10. Acute gouty arthritis ? Patient was treated with Solu-Medrol and prescription written for allopurinol Time spent in the patient's overall evaluation,decision-making process, review of diagnostic data, adjustment of management, discussion with other providers, nursing nursing and ancillary staff involved in patient's care documentation, 35 Minutes Medications at Discharge Home Medications amlodipine 10 mg tablet 10 tab PO DAILY 04/19/22 aspirin 81 mg tablet,delayed release 81 tab PO DAILY 04/19/22 atenolol 25 mg tablet 25 tab PO DAILY 04/19/22 carbidopa 25 mg-levodopa 100 mg tablet 1 tab PO TID 04/19/22 levothyroxine 50 mcg tablet 50 mcg PO DAILY 04/19/22 triamterene 75 mg-hydrochlorothiazide 50 mg tablet 1 tab PO DAILY 04/19/22 allopurinol 100 mg tablet 100 mg PO DAILYCM 60 days #60 tabs 10/21/23 apixaban 5 mg tablet (Eliquis) 5 mg PO BID 60 days #120 tabs 10/21/23 atorvastatin 80 mg tablet 80 mg PO QHS 60 days #60 tabs 10/21/23 lisinopril 5 mg tablet 5 mg PO DAILY 60 days #60 tabs 10/21/23 potassium chloride 20 mEq tablet,extended release(part/cryst) 20 meq PO BIDCM 7 days #14 tabs 10/21/23 Physical Exam Narrative GENERAL: cooperative HEENT: Atraumatic; normocephalic EYES; Anicteric, Normal Conjunctiva NECK; supple, normal thyroid, RESPIRATORY: Diminished to auscultation CARDIOVASCULAR: Irregular S1-S2 GI: soft, normoactive bowel sounds, : No Renal angle tenderness; EXTREMITIES: No edema, no clubbing, MUSCULOSKELETAL: no muscle wasting NEURO: Awake; no lateralizing signs. SKIN: No Rash PSYCH; Flat affect Weight / BMI Weight Weight: 89 kg Body Mass Index (BMI) 27.4 ABG / Lab / Microbiology Data 10/20/23 05:50 10/21/23 06:13 Laboratory: Laboratory Results - last 24 hr 10/20/23 05:50: Uric Acid 7.8 H 10/21/23 06:13: Sodium 138, Potassium 3.1 L, Chloride 104, Carbon Dioxide 27.0, Anion Gap 7, BUN 21 H, Creatinine 1.03, Estim Creat Clear Calc 66.00, Est GFR (MDRD) Af Amer 90, Est GFR (MDRD) Non-Af 75, BUN/Creatinine Ratio 20.4 H, Glucose 89, Calcium 8.7 Microbiology: Microbiology 10/19/23 08:40 Urine, Clean Catch Urine Culture - Preliminary Culture exhibits no growth. D/C Instructions Discharge Diet: Low fat / Low cholesterol Discharge Activity: Return to Normal Activity Call your doctor if you observe: Fever of 101 or Higher, Shortness of breath, Fainting spells and Chest pain Meaningful Use Info Meaningful Use Diagnoses (Choose all that apply): Ischemic CVA CVA Therapy Assessed for PT,OT and/or ST?: Yes Ischemic Stroke Antithrombotic order at d/c?: Yes Dx of Atrial fib/flutter?: Yes Anticoagulant at discharge?: Yes Statins at discharge?: Yes Primary Dx Acute Ischemic CVA?: Yes IV thrombolytic ordered during stay?: No Reason IV thrombolytic not ordered: Treatment not Indicated Discharge Plan Admission Admit Date/Time: 10/19/23 17:02 Attending Provider: Jonah Calix Primary Care Provider: eClso Hunt Consulting Providers: Bryant Loredo; Gurjit Jefferson; Nakul Hopper; Kateryna Jordan; Enedina Armenta; Gissel Hoyos; Paul Clark; Camilla Tejada; Augusto Truong; Traci Freeman;Catie Geronimo; Andrew Patton; Niharika Freed; Ines Buckley; Trang De Jesus; Trenton Garces; Yolie Robins; Mauricio Tyson; Lila Melchor; Navi Flores Discharge Orders/Prescriptions Prescriptions: New atorvastatin 80 mg Tablet 80 mg PO QHS 60 Days Qty: 60 0RF allopurinol 100 mg Tablet 100 mg PO DAILYCM 60 Days Qty: 60 0RF potassium chloride 20 mEq Tablet,Er Particles/Crystals 20 meq PO BIDCM 7 Days Qty: 14 0RF lisinopril 5 mg Tablet 5 mg PO DAILY 60 Days Qty: 60 0RF Eliquis 5 mg Tablet 5 mg PO BID 60 Days Qty: 120 0RF Continued atenolol 25 mg tablet 25 tab PO DAILY Patient Comments: TAKE 1 TABLET BY MOUTH EVERY DAY aspirin 81 mg tablet,delayed release (DR/EC) 81 tab PO DAILY Patient Comments: TAKE 1 TABLET BY MOUTH EVERY DAY amlodipine 10 mg tablet 10 tab PO DAILY Patient Comments: TAKE 1 TABLET BY MOUTH EVERY DAY levothyroxine 50 mcg tablet 50 mcg PO DAILY Patient Comments: TAKE 1 TABLET BY MOUTH ONCE DAILY. TAKE ON EMPTY STOMACH. FOR THYROID. triamterene-hydrochlorothiazid 75-50 mg tablet 1 tab PO DAILY Patient Comments: TAKE 1 TABLET BY MOUTH EVERY DAY carbidopa-levodopa 25-100 mg tablet 1 tab PO TID Patient Comments: TAKE 1 TABLET BY MOUTH THREE TIMES A DAY Referrals / Follow Up: Cleso Hunt MD [Primary Care Provider] - In 1 Week Disposition Disposition (needs filled in before D/C Order can be placed): Home Health Service Charges/Coding Visit Charges Inpatient E&M: 18885 Disch Hosp >30min 10/21/23 1025 <Electronically signed by Jonah Calix MD> Cosigner Signature (if applicable): CC: Dr. Jonah Calix MD; Dr. Celso Hunt MD~ Signed [facility] Work Phone: 1(668) 827-710101-05-2024 Consult note Author Lila Melchor [facility] October 20, 2023 12:31pm Note Date/Time October 20, 2023 12 :24pm [facility] Medical Records Department [address] [place] [address] Consultation - Neurology 10/20/23 1217 MR#: [id number] Acct: [id number] Name: TRACI DELA CRUZ JrSyl Rep #:[id number] : 1950 73 From: Lila Melchor MD PCP: Dr. Celso Hunt MD Status:ADM I N Location: [place] [address] Assessment and Plan: Stroke Assessment/Plan TRACI DELA CRUZ Jr. is a 73 M right handed male with history of Parkinson's Disease, Hypothyroid, HTN, and prior TIA who presents with episode of blurry vision and difficulty with speech that lasted 45 minutes then resolvedon 10/19/2023 6a. Neurological examination shows stigmata of Parkinsons disease (masked facies, tremor), otherwise nonfocal. Neuroimaging shows small punctate right cerebellar infarct on MRI DWI. Assessment: DWI positive TIA Plan: Recommend Event monitor () to complete stroke work-up (as outpatient). Continue Asa and lipitor 80. Inpatient Stroke work-up completed, may discharge home if cleared by PT. HPI Consult Data Date of Consult: 10/20/23 HPI Narrative HPI Narrative: TRACI DELA CRUZ, is a 73 M right handed male with history of Parkinsons Disease, Hypothyroid, HTN, and prior TIA who presents with episode of blurry vision and difficulty with speech. He awoke 10/19/2023 and was at baseline and then at 6a he developed blurry vision and could not get correct words out. This lasted about 45 min then resolved. He presented to [facility] ER, initial NIHSS-0. CT brain andCT angiogram head/neck negative. He was admitted. MRI brain DWI shows punctate right cerebellar acute infarct. He is on Asa and lipitor 80. Currently patient feels at baseline. [facility] Medical History (Updated 10/20/23 @ 11:[address] Bryant Loredo MD) HTN (hypertension) Hypothyroid Parkinson disease Home Medications amlodipine 10 mg tablet 10 tab PO DAILY 04/19/22 [History Last Taken 10/19/23] aspirin 81 mg tablet,delayed release 81 tab PO DAILY 04/19/22 [History Last Taken 10/19/23] atenolol 25 mg tablet 25 tab PO DAILY 04/19/22 [History Last Taken Unknown] carbidopa 25 mg-levodopa 100 mg tablet 1 tab PO TID 04/19/22 [History Last Taken 10/19/23] levothyroxine 50 mcg tablet 50 mcg PO DAILY 04/19/22 [History Last Taken 10/19/23] triamterene 75 mg-hydrochlorothiazide 50 mg tablet 1 tab PO DAILY 04/19/22 [History Last Taken Unknown] Allergy/AdvReac Type Severity Reaction Status Date / Time No Known Allergies Allergy Verified 10/19/23 08:01 Surgical History Status post laparoscopic cholecystectomy Social History Smoking Status: Former smoker Vital Signs Vital Signs Vital Signs: 10/19/23 14:26 10/19/23 14:36 10/19/23 14:46 Temperature Temperature Source Pulse Rate 83 75 72 Pulse Strength Respiratory Rate 16 16 16 Respiratory Effort Respiratory Depth Respiratory Pattern Blood Pressure 127/68 H 123/63 H 104/62 Blood Pressure Mean 87 83 76 Blood Pressure Source Monitor Monitor Monitor Blood Pressure Position Supine Supine Supine Blood Pressure Location Right Arm Right Arm Right Arm Pulse Ox 94 95 94 Oxygen Delivery Method Room Air Room Air Room Air 10/19/23 15:34 10/19/23 17:36 10/19/23 20:37 Temperature 98.2 F 97.8 F Temperature Source Oral Oral Pulse Rate 73 71 Pulse Strength Normal (2+) Respiratory Rate 16 16 Respiratory Effort Respiratory Depth Respiratory Pattern Blood Pressure 112/75 128/76 H Blood Pressure Mean 87 93 Blood Pressure Source Monitor Monitor Blood Pressure Position Semi-Fowlers Sitting Blood Pressure Location Right Arm Right Arm Pulse Ox 98 97 Oxygen Delivery Method Room Air Room Air 10/19/23 21:35 10/19/23 19:05 10/19/23 22:00 Temperature 99.3 F H Temperature Source Oral Pulse Rate 68 Pulse Strength Respiratory Rate 18 Respiratory Effort Normal Non-Labored Respiratory Depth Normal Respiratory Pattern Normal Blood Pressure 115/76 Blood Pressure Mean 89 Blood Pressure Source Monitor Blood Pressure Position Supine Blood Pressure Location Right Arm Pulse Ox 94 94 Oxygen Delivery Method Room Air Room Air Room Air 10/19/23 21:35 10/20/23 01:35 10/20/23 01:35 Temperature 99.3 F H 96.9 F L 96.8 F L Temperature Source Oral Temporal Temporal Pulse Rate 68 64 64 Pulse Strength Respiratory Rate 18 16 16 Respiratory Effort Respiratory Depth Respiratory Pattern Blood Pressure 115/76 139/88 H 139/88 H Blood Pressure Mean 89 105 105 Blood Pressure Source Monitor Monitor Blood Pressure Position Supine Supine Blood Pressure Location Right Arm Pulse Ox 94 96 96 Oxygen Delivery Method Room Air Room Air Room Air 10/20/23 05:35 10/20/23 05:37 10/20/23 07:50 Temperature 98 F 98 F Temperature Source Temporal Temporal Pulse Rate 66 66 Pulse Strength Respiratory Rate 16 16 Respiratory Effort Normal Non-Labored Respiratory Depth Normal Respiratory Pattern Normal Blood Pressure 124/84 H 124/84 H Blood Pressure Mean 97 97 Blood Pressure Source Monitor Monitor Blood Pressure Position Supine Supine Blood Pressure Location Right Arm Right Arm Pulse Ox 93 93 Oxygen Delivery Method Room Air Room Air Room Air 10/20/23 08:02 10/20/23 09:35 10/20/23 10:18 Temperature 98.1 F Temperature Source Oral Pulse Rate 79 Pulse Strength Normal (2+) Respiratory Rate 18 Respiratory Effort Respiratory Depth Respiratory Pattern Blood Pressure 137/79 H Blood Pressure Mean 98 Blood Pressure Source Monitor Blood Pressure Position Semi-Fowlers Blood Pressure Location Right Arm Pulse Ox 95 95 Oxygen Delivery Method Room Air Room Air Weight Weight: 89 kg Body Mass Index (BMI) 27.4 EEG Results Procedure Details EEG Procedure Details: TRACI DELA CRUZ Jr. is a 73 year old M with a past medical history of ,who presents for evaluation of Electroencephalogram on DATE at TIME NIHSS NIHSS Nursing Documentation NIHSS Nursing Documentation: NIH Stroke Scale Start: 10/19/23 08:07 Freq: Status: Discharge Protocol: Activity Type Activity Date Activity User E-sign Co-sign Detail Recorded Client Recorded Date Recorded By Document 10/19/23 08:09 [facility] [id number] 10/19/23 08:09 [facility] 10/19/23 08:09 NIH Stroke Scale [NIHSS] A score of 0 is "normal" or asymptomatic . Total possible score is 42. Inpatient: RN or Physician to activate a stroke alert for onset of new stroke symptoms or with NIHSS increase >/= 3 points. Following change in neurological status, NIHSS will be performed per physician order or more frequently PRN. -1a. Level of Consciousness Alert; keenly responsive -1b. LOC Questions Answers BOTH questions correctly. -1c. LOC Commands Performs both tasks correctly . -2. Best Gaze Normal -3. Visual No visual loss -4. Facial Palsy Normal symmetrical movements -5a. Left Arm No drift; arm holds 90 (or 45 ) degrees for full 10 seconds -5b. Right Arm No drift; arm holds 90 (or 45 ) degrees for full 10 seconds -6a. Left Leg No drift; leg holds 30-degree position for full 5 seconds -6b. Right Leg No drift; leg holds 30-degree position for full 5 seconds -7. Limb Ataxia Absent -8. Sensory Normal; no sensory loss -9. Best Language No aphasia; normal -10. Dysarthria Normal -11. Extinction and Inattention No abnormality -Total 0 Query Text:A score of 0 is "normal" or asymptomatic. Total possible score is 42 . ED: Notify Physician for NIHSS increase by > / = 3 points. Inpatient: RN or Physician to activate a stroke alert for NIHSS increase of > / = 3 points. NIHSS: Ischemic Stroke/TIA Start: 10/19/23 12:01 Text: For PCU Patients: NIH and Neuro Check every 4 Status: Active hours and PRN Freq: [id number] Protocol: Activity Type Activity Date Activity User E-sign Co-sign Detail Recorded Client Recorded Date Recorded By Document 10/20/23 09:35 Desktop 10/20/23 09:44 10/20/23 09:35 -1a. Level of Consciousness Alert; keenly responsive -1b. LOC Questions Answers BOTH questions correctly. -1c. LOC Commands Performs both tasks correctly . -2. Best Gaze Normal -3. Visual No visual loss -4. Facial Palsy Minor paralysis (flattened nasolabial fold , asymmetry on smiling) -5a. Left Arm No drift; arm holds 90 (or 45 ) degrees for full 10 seconds -5b. Right Arm No drift; arm holds 90 (or 45 ) degrees for full 10 seconds -6a. Left Leg No drift; leg holds 30-degree position for full 5 seconds -6b. Right Leg No drift; leg holds 30-degree position for full 5 seconds -7. Limb Ataxia Absent -8. Sensory Normal; no sensory loss -9. Best Language No aphasia; normal -10. Dysarthria Normal -11. Extinction and Inattention No abnormality -Total 1 Query Text:A score of 0 is "normal" or asymptomatic. Total possible score is 42 . ED: Notify Physician for NIHSS increase by > / = 3 points. Inpatient: RN or Physician to activate a stroke alert for NIHSS increase of > / = 3 points. Coma Scale [Assess] -Eye Opening Spontaneous -Motor Obeys Commands -Verbal Oriented [Total] -Coma Scale Total 15 NIHSS 1a. Level of Consciousness: Alert; keenly responsive 1b. LOC Questions: Answers BOTH questions correctly. 1c. LOC Commands: Performs both tasks correctly. 2. Best Gaze: Normal 3. Visual: No visual loss 4. Facial Palsy: Normal symmetrical movements 5a. Left Arm: No drift; arm holds 90 (or 45) degrees for full 10 seconds 5b. Right Arm: No drift; arm holds 90 (or 45) degrees for full 10 seconds 6a. Left Leg: No drift; leg holds 30-degree position for full 5 seconds 6b. Right Leg: No drift; leg holds 30-degree position for full 5 seconds 7. Limb Ataxia: Absent 8. Sensory: Normal; no sensory loss 9. Best Language: No aphasia; normal 10. Dysarthria: Normal 11. Extinction and Inattention: No abnormality Total: 0 Physical Exam Neuro Neuro Narrative: Neurological examination:: General: The patient appears nutritionally appropriate, well-groomed, and appears comfortable in no acute distress. Mental Status: The patient?s mental status was normal including orientation. Language was intact. Cranial nerves: Visual ribera full, extra-ocular motion was intact. Face motion symmetric. He has masked facies Bilateral shoulder shrug was intact. Tongue was midline withnormal movement. There was no dysarthria. Motor: Normal strength in all four extremities. No pronator drift. Sensation: Intact light touch bilaterally, no extinction. Coordination: Bilateral finger to nose was normal. There was no dysmetria. Bilateral pill rolling tremor in hands, right > left Gait: deferred Lab / Micro Data 10/20/23 05:50 10/20/23 05:50 Labs: Laboratory Results - last 24 hr 10/19/23 08:04: D-Dimer Quant (PE/DVT) 0.44 10/19/23 12:18: Troponin I High Sens 8 10/19/23 13:46: Troponin I High Sens 8 10/19/23 17:52: Troponin I High Sens 11 10/20/23 05:50: WBC 9.1, RBC 5.01, Hgb 13.7, Hct 41.6, MCV 83.0, MCH 27.3, MCHC 32.9, RDW Std Deviation 39.8, RDW Coeff of Navneet 13.2, Plt Count 179, MPV 10.6, Immature Gran % (Auto) 0.400, Neut % (Auto) 69.7, Lymph % (Auto) 17.0 L, Greer % (Auto) 11.0 H, Eos % (Auto) 1.1, Baso % (Auto) 0.8, Absolute Neuts (auto) 6.3, Absolute Lymphs (auto) 1.54, Nucleated RBC % 0, Sodium 139, Potassium 3.3 L, Chloride 105, Carbon Dioxide 27.0, Anion Gap 7, BUN 20 H, Creatinine 1.03, EstimCreat Clear Calc 66.00, Est GFR (MDRD) Af Amer 90, Est GFR (MDRD) Non-Af 75, BUN/Creatinine Ratio 19.4, Glucose 97, Uric Acid 7.8 H, Calcium 8.5, Phosphorus 2.4 L, Magnesium 1.9, Triglycerides 55, Cholesterol 118, LDL Cholesterol 54, VLDL Cholesterol 11, HDL Cholesterol 53 Rhythm Strip Rhythm Strip: A-fib Rate: 113 Ectopy: None Imagaing Radiology Impression Brain MRI 10/19/23 10:13 IMPRESSION: Acute lacunar infarct in the right cerebellum. Mild chronic involutional and white matter changes. Electronically Signed: Carmencita Al MD at 15:16 EST , ADDENDUM: 10/19/23 1538 IMPRESSION: Acute lacunar infarct in the right cerebellum. Mild chronic involutional and white matter changes. N.B. : Cheko Huitron OT, confirmed on 10/19/2023 15:31:13 (ET) that the healthcare facility has received the radiology report. Electronically Signed: Carmencita Al MD at 15:16 EST , Echocardiogram 10/19/23 10:13 Interpretation Summary Normal LV size. Left ventricular systolic function is normal. The estimated ejection fraction is 60 %. Bubble contrast study negative for right to left interatrial shunt. Stage 1 diastolic dysfunction. Ordering Physician: Jonah Calix Referring Physician: CELSO HUNT Performed By: Kate Arzate RDCS Active Medications Active Medications Active Medications: Current Medications Generic Name Dose Route Start Last Admin Trade Name Freq PRN Reason Stop Dose Admin Acetaminophen 650 mg 10/19/23 12:01 Acetaminophen 325 Mg Tablet PO Q6H PRN PRN Pain 1-10 Or Fever>100.7 Al Hydroxide/Mg Hydroxide 30 ml 10/19/23 12:01 Mag Hydrox/Al Hydrox/Simeth 30 Ml Udc PO Q6H PRN PRN Gastric Burning Albuterol Sulfate 2.5 mg 10/19/23 12:01 Albuterol 2.5 Mg/3 Ml Vial.Neb. INHALATION Q2H PRN PRN SOB/Wheezing Amlodipine Besylate 5 mg 10/21/23 10:00 Amlodipine 5 Mg Tablet PO DAILY DILLAN Protocol Apixaban 5 mg 10/19/23 12:01 10/20/23 09:44 Apixaban 5 Mg Tablet PO 5 mg BID DILLAN Administration Aspirin 81 mg 10/19/23 12:01 10/20/23 09:45 Aspirin E.C. 81 Mg Tablet PO 81 mg DAILY DILLAN Administration Atenolol 25 mg 10/20/23 22:00 Atenolol 25 Mg Tablet PO BID DILLAN Protocol Atorvastatin Calcium 80 mg 10/19/23 22:00 10/19/23 21:54 Atorvastatin Calcium 80 Mg Tablet PO 80 mg QHS DILLAN Administration Carbidopa/Levodopa 1 tablet 10/19/23 14:00 10/20/23 05:04 Carbidopa/Levodopa 25/100 Tablet PO 1 tablet TID DILLAN Administration Docusate Sodium 100 mg 10/19/23 12:01 Docusate Sodium 100 Mg Capsule PO BID PRN PRN Constipation Hydralazine HCl 5 mg 10/19/23 12:01 Hydralazine 20 Mg/Ml Vial IV Q30M PRN to maintain BP goals Sodium Chloride 250 mls @ 15 mls/hr 10/19/23 12:37 IV .[id number] PRN Additional IVPB Infusion Sodium Chloride 250 mls @ 15 mls/hr 10/19/23 12:37 IV .[id number] PRN Saline Flush Ceftriaxone Sodium 1 gm in 50 mls @ 100 mls/hr 10/19/23 17:00 10/20/23 10:49 Rocephin IV Infused Q24 DILLAN Infusion Labetalol HCl 10 - 20 mg 10/19/23 12:01 Labetalol (Prefilled) 20 Mg/4 Ml IV Q10M PRN PRN to Maintain BP Goals Levothyroxine Sodium 50 mcg 10/19/23 12:01 10/20/23 05:04 Levothyroxine 50 Mcg Tablet PO 50 mcg DAILY@0600 [facility] Administration Lisinopril 5 mg 10/20/23 11:45 Lisinopril 5 Mg Tablet PO DAILY [facility] Protocol Melatonin 3 mg 10/19/23 12:01 Melatonin 3 Mg Tablet PO QHS PRN PRN INSOMNIA Nitroglycerin 0.4 mg 10/19/23 12:01 Nitroglycerin (Inpatient Use) 0.4 Mg Tab.Subl SL Q5M PRN CARDIAC/CHEST PAIN Ondansetron HCl 4 mg 10/19/23 12:01 Ondansetron 4 Mg/2 Ml Vial IV Q8H PRN PRN NAUSEA/VOMITING Sodium Chloride 10 - 40 ml 10/19/23 12:37 0.9% Saline Lock 10 Ml Syringe IV UD PRN SALINE FLUSH Triamterene/Hydrochlorothiazide 1 tablet 10/19/23 12:01 10/20/23 09:47 Triamterene 75mg/Hctz 50mg Tablet PO Not Given DAILY [facility] Protocol 10/20/23 1224 <Electronically signed by Lila Melchor MD> Cosigner Signature (if applicable): CC: Enedina Armenta; Nakul Hopper; Niharika Freed; Trenton Perez; Gissel Hoyos MD;Kateryna Jordan MD; Gurjit Jefferson MD; Dr. Bryant Loredo MD; Dr. Paul Clark MD; Dr. Camilla Tejada MD; Dr. Traci Freeman MD; Dr. Augusto Truong MD; Dr. Andrew Patton DO; Dr. Trang De Jesus MD; Dr. Ines Buckley MD; Dr. Yolie Robins MD; Dr. Mauricio Tyson MD; Dr. Lila Melchor MD; Dr. Celso Hunt MD; Catie Geronimo DO; Navi Flores MD~ Signed ADDENDUM by Dr. Lila Melchor MD on 10/20/23 at 1231 EEG Results Procedure Details EEG Procedure Details: Assessment and Plan: Stroke Assessment/Plan Discussed wt primary, patient had Afib documented in ER, started on eliquis. No need for EM. Agree with eliquis for Afib stroke prevention. 10/20/23 1231<Electronically signed by Lila Melchor MD> Cosigner Signature (if applicable): cc: Enedina Armenta; Nakul Hopper; Niharika Freed; Trenton Perez; Gissel Hoyos MD;Kateryna Jordan MD; Gurjit Jefferson MD; Dr. Bryant Loredo MD; Dr. Paul Clark MD; Dr. Camilla Tejada MD; Dr. Traci Freeman MD; Dr. Augusto Truong MD; Dr. Andrew Patton DO; Dr. Trang De Jesus MD; Dr. Ines Buckley MD; Dr. Yolie Robins MD; Dr. Mauricio Tyson MD; Dr. Lila Melchor MD; Dr. Celso Hunt MD; Catie Geronimo DO; Navi Flores MD ~* Signed [facility] Work Phone: 1(172) 577-275701-05-2024 Progress note Author Lila Melchor [facility] October 20, 2023 12:31pm Note Date/Time October 20, 2023 12 :31pm [facility] Medical Records Department [address] [place] [id number] Progress Note - Neurology 10/20/23 1229 MR#: [id number] Acct: [id number] Name: TRACI DELA CRUZ Rep #:[id number] : 1950 73 From: Lila Melchor MD PCP: Dr. Celso Hunt MD Status:ADM I N Location: [place] [address] 10/20/23 1231 <Electronically signed by Lila Melchor MD> Cosigner Signature (if applicable): CC: ~ Signed [facility] Work Phone: 1(668) 930-762901-05-2024 Consult note Author Bryant Loredo [facility] October 20, 2023 11:30am Note Date/Time October 20, 2023 11 :30am [facility] Medical Records Department [address] [place] [address] Consultation - Cardiology 10/20/23 1126 MR#: [id number] Acct: [id number] Name: TRACI DELA CRUZ Jr. Rep #:[id number] : 1950 73 From: Bryant Loredo MD PCP: Dr. Celso Hunt MD Status:ADM I N Location: [place] [address] Assessment & Plan Assessment/Plan (1) Atrial fibrillation: PLAN: Started on apixaban for prevention of thromboembolic phenomenon. Change atenolol to 25 mg twice daily. (2) HTN (hypertension): PLAN: Beta-blockers, triamterene hydrochlorothiazide. Decrease amlodipine. Start on ROSY inhibitor. (3) Acute CVA (cerebrovascular accident): PLAN: As per neurology/internal medicine. (4) History of Parkinson's disease: PLAN: Plan Follow-up as outpatient in 4 to 6 weeks time. HPI Consult Data Date of Consult: 10/20/23 HPI Narrative Reason for Consultation: Atrial fibrillation HPI Narrative: This gentleman has past medical history significant for Parkinson's disease and hypertension. He presented to the hospital with complaints of dysarthria. He has since been diagnosed with acute cerebellar infarct. On presentation, patient was also noted to be in atrial fibrillation. This is a new diagnosis for him. Denies any previous history of heart disease. No palpitations. No orthopnea. No PND. Denies any shortness of breath. No chest pains. Denies any ankle edema. [facility] Medical History (Updated 10/20/23 @ 11:[address] Bryant Loredo MD) HTN (hypertension) Hypothyroid Parkinson disease Home Medications amlodipine 10 mg tablet 10 tab PO DAILY 04/19/22 [History Last Taken 10/19/23] aspirin 81 mg tablet,delayed release 81 tab PO DAILY 04/19/22 [History Last Taken 10/19/23] atenolol 25 mg tablet 25 tab PO DAILY 04/19/22 [History Last Taken Unknown] carbidopa 25 mg-levodopa 100 mg tablet 1 tab PO TID 04/19/22 [History Last Taken 10/19/23] levothyroxine 50 mcg tablet 50 mcg PO DAILY 04/19/22 [History Last Taken 10/19/23] triamterene 75 mg-hydrochlorothiazide 50 mg tablet 1 tab PO DAILY 04/19/22 [History Last Taken Unknown] Allergy/AdvReac Type Severity Reaction Status Date / Time No Known Allergies Allergy Verified 10/19/23 08:01 Surgical History Status post laparoscopic cholecystectomy Social History Smoking Status: Former smoker Physical Exam Narrative Bilateral upper extremity tremor. Comfortable. No apparent distress. Heart sounds 1 and 2 noted. Chest clear to auscultation bilaterally. Alert oriented x 3. No ankle edema. Risk Stratification Risk Stratification Applicable: No Objective Data Vital Signs: Vital Signs Temp Pulse Resp BP Pulse Ox O2 Del Method 98.1 F 79 18 137/79 H 95 Room Air 10/20/23 09:35 10/20/23 09:35 10/20/23 09:35 10/20/23 09:35 10/20/23 09:35 10/20/23 09:35 Oxygen Delivery Method Room Air Weight: 196 lb 3.382 oz Body Mass Index (BMI) 27.4 Intake & Output: Intake and Output for Last 24 Hours 10/18/23 10/19/23 10/20/23 23:59 23:59 23:59 Intake Total 1415.00 / 1655.00 2113.33 / 2113.33 Balance 1415.00 / 1655.00 2113.33 / 2113.33 Lab / Micro Data 10/20/23 05:50 10/20/23 05:50 Labs: Laboratory Results - last 24 hr 10/19/23 08:04: D-Dimer Quant (PE/DVT) 0.44 10/19/23 12:18: Troponin I High Sens 8 10/19/23 13:46: Troponin I High Sens 8 10/19/23 17:52: Troponin I High Sens 11 10/20/23 05:50: WBC 9.1, RBC 5.01, Hgb 13.7, Hct 41.6, MCV 83.0, MCH 27.3, MCHC 32.9, RDW Std Deviation 39.8, RDW Coeff of Navneet 13.2, Plt Count 179, MPV 10.6, Immature Gran % (Auto) 0.400, Neut % (Auto) 69.7, Lymph % (Auto) 17.0 L, Greer % (Auto) 11.0 H, Eos % (Auto) 1.1, Baso % (Auto) 0.8, Absolute Neuts (auto) 6.3, Absolute Lymphs (auto) 1.54, Nucleated RBC % 0, Sodium 139, Potassium 3.3 L, Chloride 105, Carbon Dioxide 27.0, Anion Gap 7, BUN 20 H, Creatinine 1.03, EstimCreat Clear Calc 66.00, Est GFR (MDRD) Af Amer 90, Est GFR (MDRD) Non-Af 75, BUN/Creatinine Ratio 19.4, Glucose 97, Calcium 8.5, Phosphorus 2.4 L, Magnesium 1.9, Triglycerides 55, Cholesterol 118, LDL Cholesterol 54, VLDL Cholesterol 11,HDL Cholesterol 53 Rhythm Strip Rhythm Strip: A-fib Rate: 113 Ectopy: None Cardiology Labs/Tests 10/19/23 08:04: D-Dimer Quant (PE/DVT) 0.44 10/20/23 05:50: WBC 9.1, RBC 5.01, Hgb 13.7, Hct 41.6, MCV 83.0, MCH 27.3, MCHC 32.9, Plt Count 179, MPV 10.6, Immature Gran % (Auto) 0.400, Neut % (Auto) 69.7,Lymph % (Auto) 17.0 L, Greer % (Auto) 11.0 H, Eos % (Auto) 1.1, Baso % (Auto) 0.8, Absolute Neuts (auto) 6.3, Nucleated RBC % 0, Sodium 139, Potassium 3.3 L, Chloride 105, Carbon Dioxide 27.0, Anion Gap 7, BUN 20 H, Creatinine 1.03, Est GFR (MDRD) Af Amer 90, Est GFR (MDRD) Non-Af 75, BUN/Creatinine Ratio 19.4, Glucose 97, Calcium 8.5, Phosphorus 2.4 L, Magnesium 1.9, Triglycerides 55, Cholesterol 118, LDL Cholesterol 54, VLDL Cholesterol 11, HDL Cholesterol 53 Rhythm: EKG: ECHO: Stress Test: Cardiac Cath: PCI: CT Surgery: Holter monitor: EPS: PPM: CXR: Chest CT Scan: Radiography Diagnostic Testing: Radiology Impression Brain MRI 10/19/23 10:13 IMPRESSION: Acute lacunar infarct in the right cerebellum. Mild chronic involutional and white matter changes. Electronically Signed: Carmencita Al MD at 15:16 EST , ADDENDUM: 10/19/23 1538 IMPRESSION: Acute lacunar infarct in the right cerebellum. Mild chronic involutional and white matter changes. N.B. : Cheko Huitron OT, confirmed on 10/19/2023 15:31:13 (ET) that the healthcare facility has received the radiology report. Electronically Signed: Carmencita Al MD at 15:16 EST , Echocardiogram 10/19/23 10:13 Interpretation Summary Normal LV size. Left ventricular systolic function is normal. The estimated ejection fraction is 60 %. Bubble contrast study negative for right to left interatrial shunt. Stage 1 diastolic dysfunction. Ordering Physician: Jonah Calix Referring Physician: CELSO HUNT Performed By: Kate Arzate RDCS 10/20/23 1130 <Electronically signed by Bryant Loredo MD> Cosigner Signature (if applicable): CC: Enedina Armenta; Nakul Hopper; Niharika Freed; Trenton Perez; Gissel Hoyos MD;Kateryna Jordan MD; Gurjit Jefferson MD; Dr. Bryant Loredo MD; Dr. Paul Clark MD; Dr. Camilla Tejada MD; Dr. Traci Freeman MD; Dr. Augusto Truong MD; Dr. Andrew Patton DO; Dr. Trang De Jesus MD; Dr. Ines Buckley MD; Dr. Yolie Robins MD; Dr. Mauricio Tyson MD; Dr. Lila Melchor MD; Dr. Celso Hunt MD; Catie Geronimo DO; Navi Flores MD~ Signed [facility] Work Phone: [phone] 941-122301-05-2024 Progress note Author Jonah [facility] October 20, 2023 9:10am Note Date/Time October 20, 2023 7: 43am [facility] Medical Records Department [address] [place] [address] Progress Note - Hospitalist 10/20/23 0742 MR#: [id number] Acct: [id number] Name: TRACI DELA CRUZ Jr. Rep #:[id number] : 1950 73 From: Jonah Calix MD PCP: Dr. Celso Hunt MD Status:ADM I N Location: [place] [address] Reason for Visit Reason for Visit: Diagnoses Transient cerebral ischemic attack, unspecified (10/19/23) Unspecified atrial fibrillation (10/19/23) Personal history of other diseases of the nervous system and sense organs (10/19/23) Subjective Subjective Patient is a 73-year-old gentleman presenting with speech difficulty. Initial initial head CT was unremarkable however subsequent MRI demonstrated acute lacunar infarct in the right cerebellum with mild chronic involutional and whitematter changes. Objective Data Objective Data Vital Signs: Vital Signs Temp Pulse Resp BP Pulse Ox O2 Del Method 98 F 66 16 124/84 H 93 Room Air 10/20/23 05:37 10/20/23 05:37 10/20/23 05:37 10/20/23 05:37 10/20/23 05:37 10/20/23 05:37 Oxygen Delivery Method Room Air Weight: 89.4 kg Body Mass Index (BMI) 27.4 Intake & Output: Intake and Output for Last 24 Hours 10/18/23 10/19/23 10/20/23 23:59 23:59 23:59 Intake Total 1415.00 / 1655.00 1123.33 / 1123.33 Balance 1415.00 / 1655.00 1123.33 / 1123.33 Lab / Micro Data 10/20/23 05:50 10/20/23 05:50 Labs: Laboratory Results - last 24 hr 10/19/23 08:04: WBC 13.3 H, RBC 5.55, Hgb 15.4, Hct 45.9, MCV 82.7, MCH 27.7, MCHC 33.6, RDW Std Deviation 39.3, RDW Coeff of Navneet 13.2, Plt Count 227, MPV 11.0, Immature Gran % (Auto) 0.400, Neut % (Auto) 76.2 H, Lymph % (Auto) 12.7 L,Greer % (Auto) 9.0, Eos % (Auto) 0.8, Baso % (Auto) 0.9, Absolute Neuts (auto) 10.1 H, Absolute Lymphs (auto) 1.69, Nucleated RBC % 0, PT 13.0, INR 1.0, APTT 28.1, D- Dimer Quant (PE/DVT) 0.44, Sodium 141, Potassium 3.5, Chloride 103, Carbon Dioxide 29.0, Anion Gap 9, BUN 28 H, Creatinine 1.40 H, Estim Creat ClearCalc 48.56, Est GFR (MDRD) Af Amer 64, Est GFR (MDRD) Non-Af 52 L, BUN/Creatinine Ratio 20.0, Glucose 112 H, Calcium 9.4, TSH 2.88 10/19/23 08:40: Urine Color YELLOW, Urine Clarity Clear, Urine pH 6.0, Ur Specific [place] 1.020, Urine Protein Negative, Urine Glucose (UA) Normal, UrineKetones Negative, Urine Occult Blood 50 H, Urine Nitrite Negative, Urine Bilirubin Negative, Urine Urobilinogen 1 H, Ur Leukocyte Esterase Negative, Urine RBC 10-25 SEEN, Urine WBC 10-25 SEEN, Ur Squamous Epith Cells 0 SEEN, Urine Bacteria 0 SEEN, Urine Mucus 0 SEEN 10/19/23 12:18: Troponin I High Sens 8 10/19/23 13:46: Troponin I High Sens 8 10/19/23 17:52: Troponin I High Sens 11 10/20/23 05:50: WBC 9.1, RBC 5.01, Hgb 13.7, Hct 41.6, MCV 83.0, MCH 27.3, MCHC 32.9, RDW Std Deviation 39.8, RDW Coeff of Navneet 13.2, Plt Count 179, MPV 10.6, Immature Gran % (Auto) 0.400, Neut % (Auto) 69.7, Lymph % (Auto) 17.0 L, Greer % (Auto) 11.0 H, Eos % (Auto) 1.1, Baso % (Auto) 0.8, Absolute Neuts (auto) 6.3, Absolute Lymphs (auto) 1.54, Nucleated RBC % 0, Sodium 139, Potassium 3.3 L, Chloride 105, Carbon Dioxide 27.0, Anion Gap 7, BUN 20 H, Creatinine 1.03, EstimCreat Clear Calc 66.00, Est GFR (MDRD) Af Amer 90, Est GFR (MDRD) Non-Af 75, BUN/Creatinine Ratio 19.4, Glucose 97, Calcium 8.5, Phosphorus 2.4 L, Magnesium 1.9, Triglycerides 55, Cholesterol 118, LDL Cholesterol 54, VLDL Cholesterol 11,HDL Cholesterol 53 Radiography Diagnostic Testing: Radiology Impression Brain CT 10/19/23 08:07 IMPRESSION: No acute intracranial process identified. Chronic involutional and white matter changes. Electronically Signed: Carmencita Al MD at 8:43 EST , Chest X-Ray 10/19/23 08:25 IMPRESSION: No acute cardiopulmonary process identified. Electronically Signed: Carmencita Al MD at 8:49 EST , Brain MRI 10/19/23 10:13 IMPRESSION: Acute lacunar infarct in the right cerebellum. Mild chronic involutional and white matter changes. Electronically Signed: Carmencita Al MD at 15:16 EST , ADDENDUM: 10/19/23 1538 IMPRESSION: Acute lacunar infarct in the right cerebellum. Mild chronic involutional and white matter changes. N.B. : Cheko Huitron OT, confirmed on 10/19/2023 15:31:13 (ET) that the healthcare facility has received the radiology report. Electronically Signed: Carmencita Al MD at 15:16 EST , Echocardiogram 10/19/23 10:13 Interpretation Summary Normal LV size. Left ventricular systolic function is normal. The estimated ejection fraction is 60 %. Bubble contrast study negative for right to left interatrial shunt. Stage 1 diastolic dysfunction. Ordering Physician: Jonah Calix Referring Physician: CELSO HUNT Performed By: Kate Arzate RDCS Head/Neck CTA 10/19/23 10:13 IMPRESSION: No evidence for significant stenosis or occlusion in the carotid or vertebral arteries of the neck. Multinodular thyroid goiter. No evidence for large vessel occlusion in the [place] region. Electronically Signed: Carmencita Al MD at 11:18 EST , Rhythm Strip Rhythm Strip: A-fib Rate: 113 Ectopy: None Physical Exam Narrative GENERAL: cooperative HEENT: Atraumatic; normocephalic EYES; Anicteric, Normal Conjunctiva NECK; supple, normal thyroid, RESPIRATORY: Diminished to auscultation CARDIOVASCULAR: Irregular S1-S2 GI: soft, normoactive bowel sounds, : No Renal angle tenderness; EXTREMITIES: No edema, no clubbing, MUSCULOSKELETAL: no muscle wasting NEURO: Awake; no lateralizing signs. SKIN: No Rash PSYCH; Flat affect Assessment & Plan Assessment/Plan (1) Brain TIA: (2) Atrial fibrillation: (3) History of Parkinson's disease: PLAN: Plan Patient is a 73-year-old gentleman presenting with speech difficulty 1. Acute CVA ? Patient presented with speech difficulty. Initial initial head CT was unremarkable however subsequent MRI demonstrated acute lacunar infarct in the right cerebellum with mild chronic involutional and white matter changes. Patient started on dual antiplatelet therapy with consultation placed to neurology. As part of his management ordered CT angio, and 2D echo. Also ordered PT/OT/ST 2. Parkinson's disease I did continue patient antihypertensive medication 3. A-fib ? Patient does not have any history of previous A-fib was found to be in A-fib on admission. Admitted to telemetry for continuous monitoring. Started on low-dose antiplatelet therapy 4. Hypertension - Blood pressure controlled, home medications continued with dose adjustment as needed 5. Acute kidney injury ? Patient creatinine from 09/25/2022 was 1.15, creatinine on admission was 1.40 started on IV fluid with subsequent monitoring of electrolytes ordered 6. Hypothyroidism - Patient is on levothyroxine home dose continued 7. DVT prophylaxis ? Started on apixaban for his A-fib 8. Hypokalemia -Corrected per protocol, repeat labs ordered for monitoring 9. Acute cystitis ? Patient started on ceftriaxone urine culture sent Time spent in the patient's overall evaluation,decision-making process, review of diagnostic data, adjustment of management, discussion with other providers, nursing nursing and ancillary staff involved in patient's care documentation, 50 Minutes Charges/Coding Visit Charges Inpatient E&M: 04390 Subs Hosp L3 10/20/23 0910 <Electronically signed by Jonah Calix MD> Cosigner Signature (if applicable): CC: ~ Signed [facility] Work Phone: 1(675) 891-546301-04-2024 History and physical note Author Jonah Calix [facility] October 19, 2023 3:23pm Note Date/Time October 19, 2023 10 :15am [facility] Medical Records Department [address] [place], [place] [address] H&P Exam - Hospitalist 10/19/23 1015 MR#: [id number] Acct: [id number] Name: TRACI DELA CRUZ Jr. Rep #:[id number] : 1950 73 From: Jonah Calix MD PCP: Dr. Celso Hunt MD Status:ADM I NO Location: [place] [id number] HPI - General General Date of Admission: 10/19/23 Date of Service: 10/19/23 Chief Complaint: Difficulty speaking HPI Narrative TRACI DELA CRUZ, is a 73 M with history of Parkinson's disease who presented to the emergency department with difficulty speaking as well as finding his words. Patient symptoms had apparently resolved at the time of presentation to the ED. Patient was however found to be in A-fib does not have any known diagnosis of atrial fibrillation. Given his presentation patient was admitted to monitored bed for subsequent evaluation and management [facility] Medical History HTN (hypertension) Hypothyroid Parkinson disease Home Medications amlodipine 10 mg tablet 10 tab PO DAILY 04/19/22 [History Last Taken 10/19/23] aspirin 81 mg tablet,delayed release 81 tab PO DAILY 04/19/22 [History Last Taken 10/19/23] atenolol 25 mg tablet 25 tab PO DAILY 04/19/22 [History Last Taken Unknown] carbidopa 25 mg-levodopa 100 mg tablet 1 tab PO TID 04/19/22 [History Last Taken 10/19/23] levothyroxine 50 mcg tablet 50 mcg PO DAILY 04/19/22 [History Last Taken 10/19/23] triamterene 75 mg-hydrochlorothiazide 50 mg tablet 1 tab PO DAILY 04/19/22 [History Last Taken Unknown] Allergy/AdvReac Type Severity Reaction Status Date / Time No Known Allergies Allergy Verified 10/19/23 08:01 Surgical History Status post laparoscopic cholecystectomy Social History Smoking Status: Former smoker ROS ROS Narrative GENERAL: denies fever, chills, night sweats, weight loss, anorexia HEENT: denies headache, sinus congestion, or drainage, dysphagia RESPIRATORY: denies cough, sputum production, shortness of breath, dyspnea on exertion CARDIAC: denies chest pain, palpitations, orthopnea, PND GASTROINTESTINAL: denies abdominal pain, nausea, vomiting, melena, GENITOURINARY: denies dysuria, urgency, frequency, heamaturia EXTREMITY: denies swelling MUSCULOSKELETAL: denies current joint pain or tenderness NEUROLOGIC: denies focal weakness, HEMATOLOGIC: denies easy bruising and/or hemorrhage INTEGUMENT: denies rashes PSYCHIATRIC: denies suicidal or homicidal ideation Vital Signs Vital Signs Vital Signs: 10/19/23 08:02 10/19/23 10:01 Temperature 98.2 F Temperature Source Temporal Pulse Rate 128 H 76 Respiratory Rate 20 H 19 H Blood Pressure 143/96 H 137/92 H Blood Pressure Mean 111 107 Pulse Ox 97 97 Oxygen Delivery Method Room Air Weight Weight: 93.4 kg Body Mass Index (BMI) 28.7 Physical Exam Narrative GENERAL: cooperative HEENT: Atraumatic; normocephalic EYES; Anicteric, Normal Conjunctiva NECK; supple, normal thyroid, RESPIRATORY: Diminished to auscultation CARDIOVASCULAR: Irregular S1-S2 GI: soft, normoactive bowel sounds, : No Renal angle tenderness; EXTREMITIES: No edema, no clubbing, MUSCULOSKELETAL: no muscle wasting NEURO: Awake; no lateralizing signs. SKIN: No Rash PSYCH; Flat affect Results Lab / Micro Data 10/19/23 08:04 10/19/23 08:04 Labs: Laboratory Results - last 24 hr 10/19/23 08:04: WBC 13.3 H, RBC 5.55, Hgb 15.4, Hct 45.9, MCV 82.7, MCH 27.7, MCHC 33.6, RDW Std Deviation 39.3, RDW Coeff of Navneet 13.2, Plt Count 227, MPV 11.0, Immature Gran % (Auto) 0.400, Neut % (Auto) 76.2 H, Lymph % (Auto) 12.7 L,Greer % (Auto) 9.0, Eos % (Auto) 0.8, Baso % (Auto) 0.9, Absolute Neuts (auto) 10.1 H, Absolute Lymphs (auto) 1.69, Nucleated RBC % 0, PT 13.0, INR 1.0, APTT 28.1, Sodium 141, Potassium 3.5, Chloride 103, Carbon Dioxide 29.0, Anion Gap 9,BUN 28 H, Creatinine 1.40 H, Estim Creat Clear Calc 48.56, Est GFR (MDRD) Af Amer 64, Est GFR (MDRD) Non-Af 52 L, BUN/Creatinine Ratio 20.0, Glucose 112 H, Calcium 9.4 10/19/23 08:40: Urine Color YELLOW, Urine Clarity Clear, Urine pH 6.0, Ur Specific [place] 1.020, Urine Protein Negative, Urine Glucose (UA) Normal, UrineKetones Negative, Urine Occult Blood 50 H, Urine Nitrite Negative, Urine Bilirubin Negative, Urine Urobilinogen 1 H, Ur Leukocyte Esterase Negative, Urine RBC 10-25 SEEN, Urine WBC 10-25 SEEN, Ur Squamous Epith Cells 0 SEEN, Urine Bacteria 0 SEEN, Urine Mucus 0 SEEN Rhythm Strip Rhythm Strip: A-fib Rate: 113 Ectopy: None Imagaing Radiology Impression Brain CT 10/19/23 08:07 IMPRESSION: No acute intracranial process identified. Chronic involutional and white matter changes. Electronically Signed: Carmencita Al MD at 8:43 EST , Chest X-Ray 10/19/23 08:25 IMPRESSION: No acute cardiopulmonary process identified. Electronically Signed: Carmencita Al MD at 8:49 EST , Assessment & Plan Assessment/Plan (1) Brain TIA: (2) Atrial fibrillation: (3) History of Parkinson's disease: PLAN: Plan Patient is a 73-year-old gentleman presenting with speech difficulty 1. Acute CVA ? Patient presented with speech difficulty. Initial initial head CT was unremarkable however subsequent MRI demonstrated acute lacunar infarct in the right cerebellum with mild chronic involutional and white matter changes. Patient started on dual antiplatelet therapy with consultation placed to neurology. As part of his management ordered CT angio, and 2D echo. Also ordered PT/OT/ST 2. Parkinson's disease I did continue patient antihypertensive medication 3. A-fib ? Patient does not have any history of previous A-fib was found to be in A-fib on admission. Admitted to telemetry for continuous monitoring. Started on low-dose antiplatelet therapy 4. Hypertension - Blood pressure controlled, home medications continued with dose adjustment as needed 5. Acute kidney injury ? Patient creatinine from 09/25/2022 was 1.15, creatinine on admission was 1.40 started on IV fluid with subsequent monitoring of electrolytes ordered 6. Hypothyroidism - Patient is on levothyroxine home dose continued 7. DVT prophylaxis ? Started on apixaban for his acute CVA Time spent in the patient's overall evaluation,decision-making process, review of diagnostic data, adjustment of management, discussion with other providers, nursing nursing and ancillary staff involved in patient's care documentation, 75Minutes Advance planning; did discuss with the patient regarding advanced directives aswell as CODE STATUS. Did explain the various scenarios involved ( FULL CODE, DNR CCA, DNR CCA with no intubation, and DNR CC and what each meant) patient elected to remain full code with CPR and intubation if needed. Order was placed. Time spent on discussion 18 minutes. Charges/Coding Visit Charges Inpatient E&M: 75442 Init Hosp L3 10/19/23 1523 <Electronically signed by Jonah Calix MD> Cosigner Signature (if applicable): CC: Dr. Jonah Calix MD; Dr. Celso Hunt MD~ Signed [facility] Work Phone: 1(260) 149-896101-04-2024 Discharge summary Author Tala Parker [facility] October 19, 2023 10:10am Note Date/Time October 19, 2023 8: 13am [facility] Medical Records Department [address] [place] [address] Emergency Department Summary 10/19/23 MR#: [id number] Acct: [id number] Name: TRACI DELA CRUZ Jr. Rep #:[id number] : 1950 73 From: Tala Alvarez PCP: Dr. Celso Hunt MD Status:REG E R Location: ED HPI History of Present Illness Chief Complaint: Neuro S/Sx Informant: patient Narrative Narrative: Patient is a 73-year-old male with history of Parkinson's disease, hypertension,hypothyroid and reported history of TIA presenting with neurologic symptoms. Patient states that he woke up around 3 AM was watching TV. He was at his baseline. Around 5:30 AM he started to notice that his vision seems a little blurry. He called work to say that he was can be running late and he could see the numbers right. He also notes that when he was trying to talk he could not get the correct words out. He called 911 for concern that he was having a mini stroke. Denies associated numbness or tingling. Currently states he is feelingbetter and his symptoms have all resolved. Denies any recent falls or head injuries. Denies any recent medication changes. Denies any recent URI or flulike symptoms. Denies any chest pain or shortness of breath. Denies any other complaints at this time. States that over the years he has had some TIA symptoms does not get ever reallybeen evaluated for it. He notes he does take daily 81 mg aspirin. [facility] Medical History HTN (hypertension) Hypothyroid Parkinson disease Home Medications amlodipine 10 mg tablet 10 tab PO DAILY 04/19/22 [History Last Taken Unknown] aspirin 81 mg tablet,delayed release 81 tab PO DAILY 04/19/22 [History Last Taken Unknown] atenolol 25 mg tablet 25 tab PO DAILY 04/19/22 [History Last Taken Unknown] carbidopa 25 mg-levodopa 100 mg tablet 1 tab PO TID 04/19/22 [History Last Taken Unknown] levothyroxine 50 mcg tablet 50 mcg PO DAILY 04/19/22 [History Last Taken Unknown] triamterene 75 mg-hydrochlorothiazide 50 mg tablet 1 tab PO DAILY 04/19/22 [History Last Taken Unknown] Allergy/AdvReac Type Severity Reaction Status Date / Time No Known Allergies Allergy Verified 10/19/23 08:01 Surgical History Status post laparoscopic cholecystectomy Social History Smoking Status: Never smoker ROS ROS ED Constitutional Constitutional ED: Denies chills or fever(s) Eyes Eyes: Reports blurry vision ENT ENT ED: Denies sore throat Cardiovascular Cardiovascular: Denies chest pain or palpitations Respiratory/Chest Respiratory/Chest: Denies cough or dyspnea Gastrointestinal Gastrointestinal: Denies abdominal pain, nausea or vomiting Genitourinary Genitourinary ED: Denies dysuria or urinary frequency Musculoskeletal Musculoskeletal: Denies arthralgias or myalgias Integumentary Denies rash Neurologic Neurologic: Reports other Details: Tremor, transient episode of expressive aphasia?resolved ; Denies headache(s), paresthesias or weakness Psychiatric Psychiatric: Denies anxiety Hematologic/Lymphatic Hematologic/Lymphatic: Denies easy bleeding or easy bruising EXAM Physical Exam Const Vital Signs: 10/19/23 08:02 10/19/23 10:01 Temperature 98.2 F Temperature Source Temporal Pulse Rate 128 H 76 Respiratory Rate 20 H 19 H Blood Pressure 143/96 H 137/92 H Blood Pressure Mean 111 107 Pulse Ox 97 97 Oxygen Delivery Method Room Air Positive well nourished and well developed General Appearance ED: well developed and NAD HEENT Reports moist mucous membranes atraumatic Eyes PERRL and EOMs intact bilaterally Eyes Narrative: No field cut appreciated, no nystagmus Neck supple Chest Wall inspection of chest normal and palpation of chest normal Resp normal respiratory effort and clear to auscultation bilaterally Cardio Rate: regular rate Rhythm: regular rhythm GI normal to inspection, nondistended, normoactive bowel sounds and soft to palpation Extremity normal to inspection General Extremety ED: Negative for deformity or edema General Extremity: Negative for deformity or edema Neuro oriented x3, CN's II-XII intact bilaterally and no sensory deficits noted Neuro Narrative: NIH equals 0. Patient does have pill-rolling tremor consistent with his historyof Parkinson's Speech: speech normal Psych mental status grossly normal Skin no wounds Rashes: no rashes NIHSS NIHSS Initial: 1a Level of Consciousness: 0 1b LOC Questions (Score 2 if aphasic/stupor): 0 1c LOC Commands (Only score 1st attempt): 0 2 Best Gaze (If aphasic, use reflexive mvmts.): 0 3 Visual: 0 4 Facial Palsy: 0 5 Motor Arm Right (UN = amputation/fusion): 0 5 Motor Arm Left: 0 6 Motor Leg Right: 0 6 Motor Leg Left: 0 7 Limb ataxia (Only + if out of proportion): 0 8 Sensory (Aphasia/stupor=0 or 1, coma=2): 0 9 Best Language: 0 10 Dysarthria (mute, coma=2, intubated=UN): 0 11 Extinction and Inattention (only scored if +): 0 Total Score: 0 MDM MDM MDM Narrative Medical decision making narrative: Waited for an episode of neurologic symptoms. Appears nontoxic no acute distress. Symptoms have since resolved so therefore stroke alert is not called. Will perform a TIA workup. Records from [facility] reviewed. PCP summary from 10/03/23 shows TIA listed on his problem list on 12/22/2006, no documentation of history of atrial fibrillationper PCP problem list. Does have bilateral carotid artery stenosis document on 05/31/2021. Medication list as of 10/12/2023 shows Synthroid 50 mcg, Norvasc 10 mg, triamterene/HCTZ 75/50 mg, atenolol 25 mg, 80 mg aspirin and Sinemet 25/100 mg Mildly tachycardic. He has a mild leukocytosis of 13.3 with uncertain clinical significance. No obvious infection on exam. Chest x-ray viewed by myself as well as radiology does not show any acute process. CT of the brain does not show any acute intracranial hemorrhage or other acute process. Patient does appear to be new onset atrial fibrillation with heart rate fluctuating between 100s to 120s. Is given 1 dose of IV metoprolol 5 mg with rate control. He is asymptomatic otherwise. He is given 500 cc bolus as he has a mild bump in his creatinine as well (baseline is 1.25 and today he is 1.4). Patient took aspirinprior to arrival. Patient be admitted for TIA workup as well as further evaluation of this new onset atrial fibrillation. He is agreeable. He remains hemodynamically stable in the ER. Case discussed with Dr. Calix. History & Record Review Discussion w/independent historian: EMS personnel and Patient Additional record(s) reviewed:: Prior outpatient record Lab Data Labs: Laboratory Results - last 24 hr 10/19/23 10/19/23 08:04 08:40 WBC 13.3 H RBC 5.55 Hgb 15.4 Hct 45.9 MCV 82.7 MCH 27.7 MCHC 33.6 RDW Std Deviation 39.3 RDW Coeff of Navneet 13.2 Plt Count 227 MPV 11.0 Immature Gran % (Auto) 0.400 Neut % (Auto) 76.2 H Lymph % (Auto) 12.7 L Greer % (Auto) 9.0 Eos % (Auto) 0.8 Baso % (Auto) 0.9 Absolute Neuts (auto) 10.1 H Absolute Lymphs (auto) 1.69 Nucleated RBC % 0 PT 13.0 INR 1.0 APTT 28.1 Sodium 141 Potassium 3.5 Chloride 103 Carbon Dioxide 29.0 Anion Gap 9 BUN 28 H Creatinine 1.40 H Estim Creat Clear Calc 48.56 Est GFR (MDRD) Af Amer 64 Est GFR (MDRD) Non-Af 52 L BUN/Creatinine Ratio 20.0 Glucose 112 H Calcium 9.4 Urine Color YELLOW Urine Clarity Clear Urine pH 6.0 Ur Specific [place] 1.020 Urine Protein Negative Urine Glucose (UA) Normal Urine Ketones Negative Urine Occult Blood 50 H Urine Nitrite Negative Urine Bilirubin Negative Urine Urobilinogen 1 H Ur Leukocyte Esterase Negative Urine RBC 10-25 SEEN Urine WBC 10-25 SEEN Ur Squamous Epith Cells 0 SEEN Urine Bacteria 0 SEEN Urine Mucus 0 SEEN Radiography Chest X-Ray - ED: 1 View, Read by ED Physician, Read by Radiologist and No AcuteDisease Diagnostic Testing: Clinical Impression(s) from Imaging Studies Brain CT 10/19/23 08:07 IMPRESSION: No acute intracranial process identified. Chronic involutional and white matter changes. Electronically Signed: Carmencita Al MD at 8:43 EST , Chest X-Ray 10/19/23 08:25 IMPRESSION: No acute cardiopulmonary process identified. Electronically Signed: Carmencita Al MD at 8:49 EST , Rhythm Strip Rhythm Strip: A-fib Rate: 113 Ectopy: None EKG Initial EKG: Attestation: I personally reviewed and interpreted this EKG as follows: Interpretation: Atrial Fibrillation Comments: Atrial fibrillation with ventricular response at a rate of 113 bpm Normal axis Nonspecific T wave abnormalities Normal intervals Compared to prior EKG on 09/25/2022 patient is now in A-fib Management Discussion w/another healthcare provider: Hospitalist Discharge Plan Triage Chief Complaint: Neuro S/Sx ED Provider: Tala Parker Dx/Rx/DC Orders Clinical Impression: Atrial fibrillation, Brain TIA, Elevated serum creatinine Prescriptions: No Action atenolol 25 mg tablet 25 tab PO DAILY Patient Comments: TAKE 1 TABLET BY MOUTH EVERY DAY aspirin 81 mg tablet,delayed release (DR/EC) 81 tab PO DAILY Patient Comments: TAKE 1 TABLET BY MOUTH EVERY DAY amlodipine 10 mg tablet 10 tab PO DAILY Patient Comments: TAKE 1 TABLET BY MOUTH EVERY DAY levothyroxine 50 mcg tablet 50 mcg PO DAILY Patient Comments: TAKE 1 TABLET BY MOUTH ONCE DAILY. TAKE ON EMPTY STOMACH. FOR THYROID. triamterene-hydrochlorothiazid 75-50 mg tablet 1 tab PO DAILY Patient Comments: TAKE 1 TABLET BY MOUTH EVERY DAY carbidopa-levodopa 25-100 mg tablet 1 tab PO TID Patient Comments: TAKE 1 TABLET BY MOUTH THREE TIMES A DAY Primary Care Provider: Celso Hunt Referrals: Celso Hunt MD [Primary Care Provider] - Disposition Disposition: Acute Care Hospital [facility] What to do if you have Problems For any increased pain, shortness of breath, bleeding, nausea or vomiting, chestpain, or any unexpected problems, contact your Primary Care Provider. Call [facility] ([phone]) or report to the closest Emergency Room. Call 911 if necessary. 10/19/23 1010 <Electronically signed by Tala Parker DO> Cosigner Signature (if applicable): CC: Dr. Celso Hunt MD ~ Signed [facility] Work Phone: 1(755) 121-449501-04-2024 Discharge summary Author Tala Parker [facility] October 19, 2023 10:10am Note Date/Time October 19, 2023 8: 13am [facility] Medical Records Department [address] [place] [address] Emergency Department Summary 10/19/23 MR#: [id number] Acct: [id number] Name: TRACI DELA CRUZ Jr. Rep #:[id number] : 1950 73 From: Tala Alvarez PCP: Dr. Celso Hunt MD Status:REG E R Location: ED HPI History of Present Illness Chief Complaint: Neuro S/Sx Informant: patient Narrative Narrative: Patient is a 73-year-old male with history of Parkinson's disease, hypertension,hypothyroid and reported history of TIA presenting with neurologic symptoms. Patient states that he woke up around 3 AM was watching TV. He was at his baseline. Around 5:30 AM he started to notice that his vision seems a little blurry. He called work to say that he was can be running late and he could see the numbers right. He also notes that when he was trying to talk he could not get the correct words out. He called 911 for concern that he was having a mini stroke. Denies associated numbness or tingling. Currently states he is feelingbetter and his symptoms have all resolved. Denies any recent falls or head injuries. Denies any recent medication changes. Denies any recent URI or flulike symptoms. Denies any chest pain or shortness of breath. Denies any other complaints at this time. States that over the years he has had some TIA symptoms does not get ever reallybeen evaluated for it. He notes he does take daily 81 mg aspirin. [facility] Medical History HTN (hypertension) Hypothyroid Parkinson disease Home Medications amlodipine 10 mg tablet 10 tab PO DAILY 04/19/22 [History Last Taken Unknown] aspirin 81 mg tablet,delayed release 81 tab PO DAILY 04/19/22 [History Last Taken Unknown] atenolol 25 mg tablet 25 tab PO DAILY 04/19/22 [History Last Taken Unknown] carbidopa 25 mg-levodopa 100 mg tablet 1 tab PO TID 04/19/22 [History Last Taken Unknown] levothyroxine 50 mcg tablet 50 mcg PO DAILY 04/19/22 [History Last Taken Unknown] triamterene 75 mg-hydrochlorothiazide 50 mg tablet 1 tab PO DAILY 04/19/22 [History Last Taken Unknown] Allergy/AdvReac Type Severity Reaction Status Date / Time No Known Allergies Allergy Verified 10/19/23 08:01 Surgical History Status post laparoscopic cholecystectomy Social History Smoking Status: Never smoker ROS ROS ED Constitutional Constitutional ED: Denies chills or fever(s) Eyes Eyes: Reports blurry vision ENT ENT ED: Denies sore throat Cardiovascular Cardiovascular: Denies chest pain or palpitations Respiratory/Chest Respiratory/Chest: Denies cough or dyspnea Gastrointestinal Gastrointestinal: Denies abdominal pain, nausea or vomiting Genitourinary Genitourinary ED: Denies dysuria or urinary frequency Musculoskeletal Musculoskeletal: Denies arthralgias or myalgias Integumentary Denies rash Neurologic Neurologic: Reports other Details: Tremor, transient episode of expressive aphasia?resolved ; Denies headache(s), paresthesias or weakness Psychiatric Psychiatric: Denies anxiety Hematologic/Lymphatic Hematologic/Lymphatic: Denies easy bleeding or easy bruising EXAM Physical Exam Const Vital Signs: 10/19/23 08:02 10/19/23 10:01 Temperature 98.2 F Temperature Source Temporal Pulse Rate 128 H 76 Respiratory Rate 20 H 19 H Blood Pressure 143/96 H 137/92 H Blood Pressure Mean 111 107 Pulse Ox 97 97 Oxygen Delivery Method Room Air Positive well nourished and well developed General Appearance ED: well developed and NAD HEENT Reports moist mucous membranes atraumatic Eyes PERRL and EOMs intact bilaterally Eyes Narrative: No field cut appreciated, no nystagmus Neck supple Chest Wall inspection of chest normal and palpation of chest normal Resp normal respiratory effort and clear to auscultation bilaterally Cardio Rate: regular rate Rhythm: regular rhythm GI normal to inspection, nondistended, normoactive bowel sounds and soft to palpation Extremity normal to inspection General Extremety ED: Negative for deformity or edema General Extremity: Negative for deformity or edema Neuro oriented x3, CN's II-XII intact bilaterally and no sensory deficits noted Neuro Narrative: NIH equals 0. Patient does have pill-rolling tremor consistent with his historyof Parkinson's Speech: speech normal Psych mental status grossly normal Skin no wounds Rashes: no rashes NIHSS NIHSS Initial: 1a Level of Consciousness: 0 1b LOC Questions (Score 2 if aphasic/stupor): 0 1c LOC Commands (Only score 1st attempt): 0 2 Best Gaze (If aphasic, use reflexive mvmts.): 0 3 Visual: 0 4 Facial Palsy: 0 5 Motor Arm Right (UN = amputation/fusion): 0 5 Motor Arm Left: 0 6 Motor Leg Right: 0 6 Motor Leg Left: 0 7 Limb ataxia (Only + if out of proportion): 0 8 Sensory (Aphasia/stupor=0 or 1, coma=2): 0 9 Best Language: 0 10 Dysarthria (mute, coma=2, intubated=UN): 0 11 Extinction and Inattention (only scored if +): 0 Total Score: 0 MDM MDM MDM Narrative Medical decision making narrative: Waited for an episode of neurologic symptoms. Appears nontoxic no acute distress. Symptoms have since resolved so therefore stroke alert is not called. Will perform a TIA workup. Records from [facility] reviewed. PCP summary from 10/03/23 shows TIA listed on his problem list on 12/22/2006, no documentation of history of atrial fibrillationper PCP problem list. Does have bilateral carotid artery stenosis document on 05/31/2021. Medication list as of 10/12/2023 shows Synthroid 50 mcg, Norvasc 10 mg, triamterene/HCTZ 75/50 mg, atenolol 25 mg, 80 mg aspirin and Sinemet 25/100 mg Mildly tachycardic. He has a mild leukocytosis of 13.3 with uncertain clinical significance. No obvious infection on exam. Chest x-ray viewed by myself as well as radiology does not show any acute process. CT of the brain does not show any acute intracranial hemorrhage or other acute process. Patient does appear to be new onset atrial fibrillation with heart rate fluctuating between 100s to 120s. Is given 1 dose of IV metoprolol 5 mg with rate control. He is asymptomatic otherwise. He is given 500 cc bolus as he has a mild bump in his creatinine as well (baseline is 1.25 and today he is 1.4). Patient took aspirinprior to arrival. Patient be admitted for TIA workup as well as further evaluation of this new onset atrial fibrillation. He is agreeable. He remains hemodynamically stable in the ER. Case discussed with Dr. Calix. History & Record Review Discussion w/independent historian: EMS personnel and Patient Additional record(s) reviewed:: Prior outpatient record Lab Data Labs: Laboratory Results - last 24 hr 10/19/23 10/19/23 08:04 08:40 WBC 13.3 H RBC 5.55 Hgb 15.4 Hct 45.9 MCV 82.7 MCH 27.7 MCHC 33.6 RDW Std Deviation 39.3 RDW Coeff of Navneet 13.2 Plt Count 227 MPV 11.0 Immature Gran % (Auto) 0.400 Neut % (Auto) 76.2 H Lymph % (Auto) 12.7 L Greer % (Auto) 9.0 Eos % (Auto) 0.8 Baso % (Auto) 0.9 Absolute Neuts (auto) 10.1 H Absolute Lymphs (auto) 1.69 Nucleated RBC % 0 PT 13.0 INR 1.0 APTT 28.1 Sodium 141 Potassium 3.5 Chloride 103 Carbon Dioxide 29.0 Anion Gap 9 BUN 28 H Creatinine 1.40 H Estim Creat Clear Calc 48.56 Est GFR (MDRD) Af Amer 64 Est GFR (MDRD) Non-Af 52 L BUN/Creatinine Ratio 20.0 Glucose 112 H Calcium 9.4 Urine Color YELLOW Urine Clarity Clear Urine pH 6.0 Ur Specific [place] 1.020 Urine Protein Negative Urine Glucose (UA) Normal Urine Ketones Negative Urine Occult Blood 50 H Urine Nitrite Negative Urine Bilirubin Negative Urine Urobilinogen 1 H Ur Leukocyte Esterase Negative Urine RBC 10-25 SEEN Urine WBC 10-25 SEEN Ur Squamous Epith Cells 0 SEEN Urine Bacteria 0 SEEN Urine Mucus 0 SEEN Radiography Chest X-Ray - ED: 1 View, Read by ED Physician, Read by Radiologist and No AcuteDisease Diagnostic Testing: Clinical Impression(s) from Imaging Studies Brain CT 10/19/23 08:07 IMPRESSION: No acute intracranial process identified. Chronic involutional and white matter changes. Electronically Signed: Carmencita Al MD at 8:43 EST , Chest X-Ray 10/19/23 08:25 IMPRESSION: No acute cardiopulmonary process identified. Electronically Signed: Carmencita Al MD at 8:49 EST , Rhythm Strip Rhythm Strip: A-fib Rate: 113 Ectopy: None EKG Initial EKG: Attestation: I personally reviewed and interpreted this EKG as follows: Interpretation: Atrial Fibrillation Comments: Atrial fibrillation with ventricular response at a rate of 113 bpm Normal axis Nonspecific T wave abnormalities Normal intervals Compared to prior EKG on 09/25/2022 patient is now in A-fib Management Discussion w/another healthcare provider: Hospitalist Discharge Plan Triage Chief Complaint: Neuro S/Sx ED Provider: Tala Parker Dx/Rx/DC Orders Clinical Impression: Atrial fibrillation, Brain TIA, Elevated serum creatinine Prescriptions: No Action atenolol 25 mg tablet 25 tab PO DAILY Patient Comments: TAKE 1 TABLET BY MOUTH EVERY DAY aspirin 81 mg tablet,delayed release (DR/EC) 81 tab PO DAILY Patient Comments: TAKE 1 TABLET BY MOUTH EVERY DAY amlodipine 10 mg tablet 10 tab PO DAILY Patient Comments: TAKE 1 TABLET BY MOUTH EVERY DAY levothyroxine 50 mcg tablet 50 mcg PO DAILY Patient Comments: TAKE 1 TABLET BY MOUTH ONCE DAILY. TAKE ON EMPTY STOMACH. FOR THYROID. triamterene-hydrochlorothiazid 75-50 mg tablet 1 tab PO DAILY Patient Comments: TAKE 1 TABLET BY MOUTH EVERY DAY carbidopa-levodopa 25-100 mg tablet 1 tab PO TID Patient Comments: TAKE 1 TABLET BY MOUTH THREE TIMES A DAY Primary Care Provider: Celso Hunt Referrals: Celso Hunt MD [Primary Care Provider] - Disposition Disposition: Acute Care Hospital [facility] What to do if you have Problems For any increased pain, shortness of breath, bleeding, nausea or vomiting, chestpain, or any unexpected problems, contact your Primary Care Provider. Call [facility] ([phone]) or report to the closest Emergency Room. Call 911 if necessary. 10/19/23 1010 <Electronically signed by Tala Parker DO> Cosigner Signature (if applicable): CC: Dr. Celso Hunt MD ~ Signed [facility] Work Phone: 1(285) 761-233611-30-2023 Miscellaneous Notes* Telephone Encounter - Odalys Marin LPN - 09/14/2023 8:[address] [facility] faxes asking for knee braces and back brace. This is not something that Dr Hunt orders. Returned not approved. documented in this encounterAdams County Regional Medical Center10-03-2023 Instructions* Patient Instructions* Sade Shine APRN.CNP - 07/18/2023 8:35 AM EDT It was [...] to your Parkinson's disease or to your bloodpressure medications so please let Dr. Hunt know. He will also want to know [...] or you can send a message through Sien. You can also now schedule and select appointments through Sien. Sade Shine APRN.ALIVIA documented in this encounterAdams County Regional Medical Center10-03-2023 History of Present illness Narrative* Sade Shine APRN.CNP - 07/18/2023 8:00 AM EDT [facility] - FOLLOW UP EVALUATION Celso Hunt MD [address] [facility] [id number] Dear Celso Hunt MD: I had the pleasure of seeing Mr. Dela Cruz for follow-up today. As you know he [...] to take it 2-3 times a day onhis days off but is better when he [...] Objective Vital Signs: Ht 180.3 cm (5' 11") Wt 88.3 kg (194 lb 9.6 oz) [...] during tapping, b) mild slowing, c) the amplitudedecrements midway in the 10-tap sequence. Finger Taps [...] the tapping movements, b) mild slowing, c) theamplitude decrements midway in the task. Leg Agility [...] to one side, but patient can correct postureto normal posture when asked to do so. [...] microvascular ischemia. Assessment and Plan: Assessment Mr. Dela Cruz is a right-handed 73 year old year [...] a timer at home to help him rememberbut he indicated he does not have the [...] to your Parkinson's disease or to your bloodpressure medications so please let Dr. Hunt know. He will also want to know if you start feeling dizzy or lightheaded when you stand. Please make sure you are changing positions slowly and drinking plenty of water. Updated Movement Disorders Medication Schedule: Medications 3am 8am 1pm 6pm Sinemet 25/100 1 1 1 1 Level of service : 55333 ( 30-39 min). Time spent 32 min on the day of service, which included preparing to see the patient, [id number] patient care, completing clinical documentation, obtaining and/or reviewing separately obtained history, performing a medically appropriate examination, and counseling and educating the patient/family/caregiver. Sade Shine APRN.MANAGER OF SECURITY documented in this encounterAdams County Regional Medical Center09-18-2023 Miscellaneous Notes* Telephone Encounter - Rabia Zamorano RN - 07/03/2023 10:36 AM EDT Patient calling to request three refills as [...] 3.620 Rabia Zamorano RN documented in this encounterAdams County Regional Medical Center07-07-2023 Miscellaneous Notes* Telephone Encounter - Jose Ramon Christie LPN - 04/21/2023 2:23 PM EDT Form faxed. Jose Ramon Christie LPN * Telephone Encounter - Manuela Pham APRN.CNP - 04/21/2023 1:33 PM EDT Form completed as able. Manuela Pham APRN.ALIVIA * Telephone Encounter - Jose Ramon Christie LPN - 04/21/2023 9:29 AM EDT Partially completed [employer] forms received via fax. Placed on provider desk for further review. Jose Ramon Christie LPN * Telephone Encounter - Malgorzata Benjamin Ma - 04/07/2023 1:35 PM EDT Will need to wait until Monday when provider is back * Telephone Encounter - Mamadou Charles RN - 04/07/2023 9:11 AM EDT Mary- [facility] Workmens Comp, asking office to return her call. Reports she needs ov notes, [employer] form and off work slip, faxed to her at # [phone]. Please advise and phone Mary with reply. * Telephone Encounter - Odalys Marin LPN - 04/05/2023 1:05 PM EDT Message was sent to RS. * Telephone Encounter - Manuela Pham APRN.CNP - 04/05/2023 12:31 PM EDT I wasn't aware this was a workman's comp claim. * Telephone Encounter - Regina Cunningham LPN - 04/05/2023 11:57 AM EDT Patient seen Manuela Pham for a workers comp issues 04/04/23. Mary from [facility] called. They manage medical WC claims. She provided a claim # of [id number]. She is asking for a copy of the [employer] and office notes. She also is asking who would be her special effects person for any questions. documented in this encounterAdams County Regional Medical Center06-20-2023 Instructions* Patient Instructions* Manuela Pham APRN.ALIVIA - 04/04/2023 10:56 AM EDT Start the prednisone taper. The prednisone taper will be 4 tablets for 3 days; 3 tablets for 3 days; 2 tablets for 3 days; then1 tablet for 3 days. Please do no use other anti-inflammatories (like ibuprofen, aleve, naproxen, etc) while you are on this medication. 2. Ice the shoulder. 3. Shoulder exercises. 4. Topicals (ie maria e hu, icy hot, biofreeze) 5. Let us know if no better/worsening. documented in this encounterAdams County Regional Medical Center06-20-2023 History of Present illness Narrative* Manuela Pham APRN.ALIVIA - 04/04/2023 10:38 AM EDT This is a 72 year old male who presents today with: Patient presents with: ER F/U: [facility] ER 03/29 dx:fall, R arm pain HISTORY OF PRESENT ILLNESS: Traci Pandya Epifaniorosemariedinorah Bran is a 72 year old male. Patient presents with: ER F/U: [facility] ER 03/29 dx:fall, R arm pain Pt [...] some mowing yesterday, which seemed to exacerbate someof his symptoms. Reports limited ROM of the [...] needed for worsening/no improvement. Manuela Pham APRN.CNP documented in this encounterAdams County Regional Medical Center05-08-2023 Miscellaneous Notes* Telephone Encounter - MADHAVI Briones - 02/20/2023 10:44 AM EDT TC to patient who verbalized understanding of providers message and has no questions at this time. MADHAVI Briones * Telephone Encounter - Rabia Zamorano RN - 02/15/2023 2:12 PM EDT Images from the original note were not included. Message left for patient to call PCP office for message below. Rabia Zamorano RN Result Notes Manuela Pham APRN.CNP 02/15/2023 8:59 AM EDT Back to Top Can please let patient know that we received his lab results. Everything looks within normal/stable. Manuela Pham APRN.CNP documented in this encounterAdams County Regional Medical Center05-02-2023 History of Present illness Narrative* Mamadou Wu PA-C - 02/14/2023 8:00 AM EDT 72 year old male with c/o here [...] Rem sleep behavior disorder Neurologist: Dr. Sade Shine Current medications: Carbidopa-levodopa 25-100mg three times a day Persistent tremor right arm/ hand About the same Denies falls in a long time Denies immobility issues Hypothyroidism, acquired Thyroid nodule Current medication: Levothyroxine 50mcg daily AC Taking as directed on an empty stomach? Yes. Thyroid pain: No. Mass effect: No. Change in energy level/ fatigue? 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 Small area of mucosal [...] Take 1 tablet by mouth once daily. 90tablet 1 amLODIPine (NORVASC) 10 mg tablet Take 1 tablet by mouth once daily. 90 tablet 3 atenolol (TENORMIN) 25 mg tablet Take 1 tablet by mouth once daily. 90 tablet 3 aspirin, enteric coated (ADULT LOW DOSE ASPIRIN) 81 mg EC tablet Take 1 tablet by mouth once daily.100 tablet 3 levothyroxine (SYNTHROID) 50 mcg tablet [...] and pink. No cervical lymph nodes. Thyroid non- tender, no masses, or enlargement. Carotids pulses 2+/4+ [...] comparison. Mamadou Wu PA-C documented in this encounterAdams County Regional Medical Center03-23-2023 History of Present illness Narrative* Danielle Soliz MA - 01/05/2023 3:39 PM EDT POPULATION HEALTH NAVIGATION OUTREACH Action/FYI left message [...] 05, 2023 3:39 PM documented in this encounterAdams County Regional Medical Center03-14-2023 Instructions* Patient Instructions* Sade Shine APRN.ALIVIA - 12/27/2022 9:21 AM EDT It was [...] or you can send a message through Sien. You can also now schedule and select appointments through Sien. Sade Shine APRN.ALIVIA documented in this encounterAdams County Regional Medical Center03-14-2023 History of Present illness Narrative* Sade Shine APRN.ALIVIA - 12/27/2022 9:05 AM EDT [facility] - FOLLOW UP EVALUATION Celso Hunt MD [address] [facility] [address] Dear Celso Hunt MD: I had the pleasure of seeing Mr. Dela Cruz for follow-up today. As you know he [...] does bother him more at work sometimes thoughand there has been times when he could [...] Objective Vital Signs: Ht 180.3 cm (5' 11") Wt 92.3 kg (203 lb 8 oz) SpO2 96% BMI 28.38 kg/m Orthostatic Vitals: Sitting: BP 105/76 Pulse 82 Standing: BP 107/50 Pulse 74 Weight: 92.3 kg (203 lb 8 oz) Height: 180.3 cm (5' 11") No LMP for male patient. Body mass index is 28.38 kg/m . Movement Disorders Scales Performed: MDS-UPDRS Motor subscale condition of exam Medication Off/On/Naiive ON Time of UPDRS 09 Time of Last Medication Last Medication Taken DBS Right N/A DBS Left N/A MDS-UPDRS Motor subscale scores Speech 2-Mild. Loss of modulation, diction, or volume, with a few words unclear, but the overall sentences easy to follow. Finger Taps Right 2-Mild. a) 3 to 5 interruptions during tapping, b) mild slowing, c) the amplitudedecrements midway in the 10-tap sequence. Finger Taps [...] during the tapping movements or at least onelonger arrest (freeze) in ongoing movement, b) moderate [...] to one side, but patient can correct postureto normal posture when asked to do so. [...] microvascular ischemia. Assessment and Plan: Assessment Mr. Dela Cruz is a right-handed 72 year old year old male with Parkinson's disease since 2019. His tremor is quite significant and though he did find it somewhat helpful, taking a larger amount in any given dose makes him feel a little out of it and this concerned him due to his job. 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 He is open to taking one tablet four times a day though he indicated it willprobably be difficult to remember while he is [...] Decision Making Level: 3 - Low Sade Shine APRN.MANAGER OF SECURITY documented in this encounterAdams County Regional Medical Center02-09-2023 Instructions* Patient Instructions* Mamadou Wu PA-C - 11/24/2022 9:40 AM [...] blood, sharp uric acid crystals may form inthe joints. The crystals cause pain and swelling. [...] cause your body to make too much uricacid. Uric acid levels in men start to go up after puberty. Women's uric acid levels usually do not go upuntil after menopause. For this reason women are [...] physical illness, trauma, or excessive alcohol use. Thesymptoms may last for days to weeks. The [...] symptoms, you will not need treatment. In specialcases (for example, if you have a strong [...] kidney), shrimp, anchovies, sardines, and dried legumes. Yourconsumption of alcoholic beverages should not exceed 2 ounces a day. Drink lots of fluids. Published by [employer]. This content is reviewed periodically and is subject to change as new health information becomes available. The information is intended to inform and educate and is not a replacement for medical evaluation, advice, diagnosis or treatment by a healthcare professional. Developed by [employer]. Copyright 2005 [employer] and/or one of its subsidiaries. All Rights Reserved. Special Instructions: Prednisone is for reducing inflammation, if any issues, let me know. Copyright [employer] 2006 Adult Health Advisor documented in this encounterAdams County Regional Medical Center02-09-2023 History of Present illness Narrative* Mamadou Wu PA-C - 11/24/2022 9:31 AM EST 72 year old male with c/o gout [...] Take 1 tablet by mouth once daily. 90tablet 1 amLODIPine (NORVASC) 10 mg tablet Take 1 tablet by mouth once daily. 90 tablet 3 atenolol (TENORMIN) 25 mg tablet Take 1 tablet by mouth once daily. 90 tablet 3 aspirin, enteric coated (ADULT LOW DOSE ASPIRIN) 81 mg EC tablet Take 1 tablet by mouth once daily.100 tablet 3 levothyroxine (SYNTHROID) 50 mcg tablet [...] in no acute distress. Alert and oriented allspheres. Normal affect and cognition. Speech normal. No [...] TABLET Mamadou Wu PA-C documented in this encounterAdams County Regional Medical Center01-16-2023 History of Present illness Narrative* Edel Pugh MA - 10/31/2022 8:37 AM EST POPULATION HEALTH NAVIGATION OUTREACH Action/FYI Spoke to [...] 31, 2022 8:37 AM documented in this encounterAdams County Regional Medical Center01-03-2023 Instructions* Patient Instructions* Ximena Hill PA-C - 10/18/2022 9:12 AM EST The following instructions are important for you related to your office visit today with the [facility] General Surgeons. INSTRUCTIONS FOLLOWING YOU RECENT GALLBLADDER [...] you should contact our office immediately @ [phone] and ask to be transferred to the General Surgery department. documented in this encounterAdams County Regional Medical Center01-03-2023 History of Present illness Narrative* Ximena Hill PA-C - 10/18/2022 9:04 AM EST FOLLOW UP VISIT - CHOLECYSTECTOMY NAME: Traci Dela Cruz [facility] [place] CLINIC NO.: [id number] DATE OF SERVICE: 10/18/2022 : 1950 REFERRING PHYSICIAN: Celso Hunt MD Traci is a patient I am [...] C (97.6 F), height 180.3 cm (5' 11"), weight 90.3 kg (199 lb), SpO2 96 %. On examination, the abdomen is benign. The incisions are healing well without signs of infection orinflammation. Assessment IMPRESSION: status post laparoscopic cholecystectomy for [...] instructed to follow-up with me as needed. Ximena Hill PA-C documented in this encounterAdams County Regional Medical Center12-14-2022 History of Present illness Narrative* Shelbi Ruth MD - 09/28/2022 2:49 PM EST FOLLOW UP VISIT NAME: Traci Dela Cruz [facility] [place] CLINIC NO.: [id number] DATE OF SERVICE: 09/28/2022 : 1950 REFERRING PHYSICIAN: Celso Hunt MD Traci is status post laparoscopic cholecystectomy on 09/25/2022 at [facility]. He has minimal tenderness. Had TYLOR drain placed, here for removal. VITALS: Blood pressure 124/62, pulse 67, temperature 36.4 C (97.6 F), height 180.3 cm (5' 11"), weight 90.3 kg (199 lb), SpO2 97 %. On examination, abdomen is soft and benign TYLOR output is serosanguinous, < 60 ml per day. TYLOR drain removed without difficulty. Patient to follow up with Ximena next week. Assessment IMPRESSION: status post laparoscopic cholecystectomy PLAN: Follow up in clinic as above. Diagnoses: (Z90.49) Status post laparoscopic cholecystectomy (primary encounter diagnosis) I have confirmed and edited as necessary, the PFSH and ROS obtained by others. Shelbi Ruth MD documented in this encounterAdams County Regional Medical Center12-14-2022 Nurse Note* Kim Pino, PLATING ENGINEER - 09/28/2022 2:29 PM EST REVIEW OF SYSTEMS: General: The patient denies [...] failure, other cardiac issues, denies claudication, denies coldfeet, denies peripheral arterial stent. Respiratory: The patient [...] back pain/injury, denies back problems, denies sciatica, deniesknee/foot trouble, denies arthritis, or notes gout. When was patient's last Mammogram screening? N/A Last Colonoscopy: none Kim Pino LPN documented in this encounterAdams County Regional Medical Center12-12-2022 Hospital Discharge instructions Additional Instructions Recommended pain control regimen - May take 600 mg ibuprofen (Motrin) and then in 3-4 hours, may take 650 mg acetaminophen (Tylenol), then in 3-4 hours may take 600 mg ibuprofen, then in 3-4 hours may take 650 mg acetaminophen and so on for 2-3 days May take narcotic pain medication for pain that is not controlled by above and at night for comfort through the night Leave dressings in place May shower, do not scrub in the areas of the dressings as they may unravel. Do not soak - no tub baths/swimming No lifting/pushing/pulling greater than 20 pounds for two weeks. Regular diet as tolerated, drink plenty of fluids. Avoid carbonated beverages for a few days as this will cause abdominal bloating and thus discomfort after our surgery. Please call my office for an appointment to see me in 1-2 weeks. Office number is If any questions, please call my office at and ask the cager operator for the general surgery nurses desk Implant Used?: Yes [facility] Work Phone: 1(642) 172-394912-01-2022 History of Present illness Narrative* Edel Pugh MA - 09/15/2022 10:19 AM EST POPULATION HEALTH NAVIGATION OUTREACH Action/FYI [facility] ANNUAL MEDICARE WELLNESS COLORECTAL CANCER SCREENING due [...] 15, 2022 10:19 AM documented in this encounterAdams County Regional Medical Center11-04-2022 Miscellaneous Notes* Telephone Encounter - Radha Piña - 08/19/2022 2:23 PM EDT Placed call to patient with no answer. VM verified. Left message informing him of normal results. Advised him to call back with any questions or concerns. Radha Piña * Telephone Encounter - Rabia Zamorano RN - 08/17/2022 3:21 PM EDT Attempted to contact patient to give him provider's message regarding recent lab results. Message left for patient to call PCP office for message below: (MESSAGE COPIED) Mamadou Wu PA-C 08/17/2022 3:51 AM EDT Back to Top Please advise labs look good Thanks, DEBBY Trevizo, RN documented in this encounterAdams County Regional Medical Center10-31-2022 Instructions* Patient Instructions* Mamadou Wu PA-C - 08/15/2022 9:30 AM EDT Please schedule dental visit due to gum disease and cardiovascular risk. Please check state of [place] coverage for hearings in workers. documented in this encounterAdams County Regional Medical Center10-31-2022 History of Present illness Narrative* Mamadou Wu PA-C - 08/15/2022 8:40 AM EDT 72 year old male with c/o here [...] long time Denies immobility issues Dr. Sade Shine Hypothyroidism, acquired Thyroid nodule Current medication: Levothyroxine 50mcg daily AC Taking as directed on an empty stomach? Yes. Thyroid pain: No. Mass effect: No. Change in energy level/ fatigue? 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 [...] 2005 No past surgical history on file. Social [...] tablet Take 1 tablet by mouth once daily.100 tablet 3 triamterene-hydroCHLOROthiazide (MAXZIDE) 75-50 mg per tablet Take 1 tablet by mouth once daily. 90tablet 1 levothyroxine (SYNTHROID) 50 mcg tablet Take [...] needed Mamadou Wu PA-C documented in this encounterAdams County Regional Medical Center07-25-2022 Miscellaneous Notes* Telephone Encounter - Ximena Coffey RN - 05/09/2022 8:13 AM EDT Pt reports he only has 1 Atenolol [...] found for: POT Please advise. Thank you. Ximena Coffey RN documented in this encounterCleveland [id number] History of Present illness Narrative* Kim Warner PA-C - 04/26/2022 4:36 PM EDT This note was created using Cloudscalingriter. Subjective Traci Dela Cruz Jr. is a 71 year old male. [...] Take 1 tablet by mouth once daily. 90tablet 1 aspirin, enteric coated (ADULT LOW DOSE ASPIRIN) 81 mg EC tablet Take 1 tablet by mouth once daily.100 tablet 3 atenolol (TENORMIN) 25 mg tablet [...] 10 mL injection (DEFINITY) INTRAVENOUS DIRECTED PRN Celso Hunt MD sodium chloride 0.9 % (flush) 10 mL (BD POSIFLUSH) 10 mL INTRAVENOUS DIRECTED PRN Celso Hunt MD No past surgical history on file. [...] plan. Kim Warner PA-C documented in this encounterAdams County Regional Medical Center07-12-2022 Miscellaneous Notes* Telephone Encounter - Jose Ramon Christie LPN - 04/26/2022 9:41 AM EDT TC to pt, notified of provider response. Pt will come into Urgent Care. Jose Ramon Christie LPN * Telephone Encounter - Celso Hunt MD - 04/26/2022 9:29 AM EDT Needs seen in office or urgent care. * Telephone Encounter - Ximena Coffey RN - 04/26/2022 8:05 AM EDT Pt called in and repots he is having a gout flare up in his R foot. Pt is asking if provider would call him in some Prednisone to [facility] in [place]. Please call and advise. Patient has been [...] 21 05/06/2021 25 Please advise. Thank you. Ximena Coffey RN documented in this encounterAdams County Regional Medical Center04-29-2022 Instructions* Patient Instructions* Sade Shine APRN.MANAGER OF SECURITY - 02/11/2022 8:27 AM EDT It was [...] or you can send a message through Sien. You can also now schedule and select appointments through [facility]. Sade Shine APRN.MANAGER OF SECURITY From the [employer]: https://www.parkinson.org What Can [...] drooling. Another tactic is to wear a sweatbandon your wrist. This can be used to [...] this is perceived as a side effect (drymouth), but in this case it is an advantage. Other anticholinergic side effects may be seen, including drowsiness, confusion, vomiting, dizziness, blurred vision, constipation, flushing, headache andurinary retention. Anticholinergics can also have mental side [...] used to treat dystonia. Injection of botulinum to adiel A into the salivary glands of the [...] treatment for severe drooling but is more costlythan other treatments, which your physician may want [...] can make phlegm worse. documented in this encounterAd[facility]29-[facility] History of Present illness Narrative* Sade Shine APRN.CNP - 02/11/2022 8:11 AM EDT [facility] - FOLLOW UP EVALUATION Celso Hunt MD [address] [facility] [id number] I had the pleasure of seeing Mr. Dela Cruz for follow up today. He is a 71 year old right-handed malewith Parkinson's disease since 2019. He is seen [...] Objective Vital Signs: Ht 180.3 cm (5' 11") Wt 94.8 kg (209 lb) SpO2 96% [...] during tapping, b) mild slowing, c) the amplitudedecrements midway in the 10-tap sequence. Finger Taps [...] the tapping movements, b) mild slowing, c) theamplitude decrements midway in the task. Leg Agility [...] to one side, but patient can correct postureto normal posture when asked to do so. [...] microvascular ischemia. Assessment and Plan: Assessment Mr. Dela Cruz is a right-handed 71 year old male [...] his primary care provider to make sure thereis not anything else going on such as [...] 1 1 1 Level of service : [id number] (20-29 min). Time spent 24 (8:11am-8:32am and 8:43am- 8:46am) min on the day of service, which included preparing to see the patient, [id number] patient care, completing clinical documentation, obtaining and/or reviewing separately obtained history, performing a medically appropriate examination, counseling and educating the patient/family/caregiver and ordering medications, tests, or procedures. Sade Shine APRN.MANAGER OF SECURITY documented in this encounterAd[facility]04-28-2022 Miscellaneous Notes* Telephone Encounter - Daniella Mendoza LPN - 02/10/2022 2:59 PM EDT Left detailed message on identifiable voice mail. * Telephone Encounter - Daniella Mendoza LPN - 02/10/2022 2:58 PM EDT ----- Message from Celso Hunt MD sent at 02/10/2022 9:51 AM EDT ----- Let him know his labs are ok. documented in this encounterAd[facility]04-27-2022 Miscellaneous Notes* Addendum Note - Celso Hunt MD - 02/09/2022 8:43 AM EDT Addended by: CELSO HUNT on: 02/09/2022 08:43 AM Modules accepted: Orders documented in this encounterAdams County [facility]04-27-2022 History of Present illness Narrative* Celso Hunt MD - 02/09/2022 8:12 AM EDT Patient presents with: Medicare Wellness Exam HPI: [...] 2006 No past surgical history on file. FAMILY HISTORY Problem Relation Age of Onset Ischemic Heart Disease Mother 60 other (rheumatoid arthritis) Mother Social History Tobacco Use Smoking status: Never Smoker Smokeless tobacco: Never Used Substance Use Topics Alcohol use: No Drug use: No Reviewed current medications, allergies, past medical history, surgical history, family history andsocial history today. REVIEW OF SYSTEMS All other [...] 68 Resp 16 Ht 178 cm (5' 10.08") Wt 96.2 kg (212 lb) BMI 30.35 [...] ICD9: 300.00, ICD10: F41.9 - doing well. Celso Hunt RTO in six months and prn. documented in this encounterAdams County [facility] Center04-21-2022 Miscellaneous Notes* Telephone Encounter - Zohreh Knight - 02/03/2022 11:40 AM EDT Pt. notified. * Telephone Encounter - Mamadou Wu PA-C - 02/03/2022 11:01 AM EDT Should be seen if possible. The following approved medication requests have been transmitted electronically. Signed Prescriptions Disp Refills predniSONE (DELTASONE) 20 mg tablet 10 tablet 0 Sig: Take 2 tablets by mouth once daily for 5 days. Authorizing Provider: Mamadou WU PA-C * Telephone Encounter - Chidi Dominguezrukhsana Stark LPN - 02/03/2022 8:13 AM EDT Pt calling and states having problem with right foot. States this is his gout flaring up. Pt states was given Prednisone in the past. Please advise. Okay to leave a message Chidi Can Mi PORTILLO documented in this encounterAdams County [facility] Center03-24-2022 History of Present illness Narrative* Edel Pugh MA - 01/06/2022 7:41 AM EDT POPULATION HEALTH NAVIGATION OUTREACH Action/I [facility] Health Maintenance items due: ANNUAL MEDICARE WELLNESS [...] 06, 2022 7:41 AM documented in this encounterAdams County [facility] Center04-12-2021 History of Present illness Narrative* Bacilio Enrique ()Zohreh - 01/25/2021 10:30 AM EDT Radiology Service Progress Note PATIENT NAME: Traci Dela Cruz Jr. DATE OF SERVICE: January 25, 2021 TIME: 11:00 AM PATIENT IDENTITY VERIFICATION COMPLETED USING TWO (2) IDENTIFIERS: Name and Date of confirmedby patient verbally. FALL SCREENING: Has the patient had 2 falls in the last year or 1 fall with injury or currently using an Ambulatory Assistive Device (Walker, Cane, Wheelchair, Crutches, etc.)? No PATIENT GENDER DATA: Male PATIENT RELEVANT IMPLANT DATA REVIEWED: Not Applicable RADIOLOGY DEPARTMENT: General X-ray: Exam(s) Completed: Lower Extremity X- Ray(s): Ankle, Left and Wt. Bearing: PERIPHERAL IV DATA: Not applicable SIGNED BY: RT Jonelle January 25, 2021 11:00 AM documented in this encounterAdams County [facility] Center11-06-2019 History of Past illness Narrative* Problem Noted Date Resolved Date Restless legs syndrome 08/21/2019 2 Essential hypertension, benign 12/22/2006 0 11/05/2007 documented as of this encounter (statuses as of 02/11/2022) [facility] of Past illness Narrative* Problem Noted Date Resolved Date Restless legs syndrome 08/21/2019 2 Essential hypertension, benign 12/22/2006 0 11/05/2007 documented as of this encounter (statuses as of 04/26/2022) [facility] of Past illness Narrative* Problem Noted Date Resolved Date Restless legs syndrome 08/21/2019 2 Essential hypertension, benign 12/22/2006 0 11/05/2007 documented as of this encounter (statuses as of 05/09/2022) [facility] of Past illness Narrative* Problem Noted Date Resolved Date Restless legs syndrome 08/21/2019 2 Essential hypertension, benign 12/22/2006 0 11/05/2007 documented as of this encounter (statuses as of 08/15/2022) [facility] of [facility] illness Narrative* Problem Noted Date Resolved Date Restless legs syndrome 08/21/2019 2 Essential hypertension, benign 12/22/2006 0 11/05/2007 documented as of this encounter (statuses as of 08/19/2022) [facility] of [facility] illness Narrative* Problem Noted Date Resolved Date Restless legs syndrome 08/21/2019 2 Essential hypertension, benign 12/22/2006 0 11/05/2007 documented as of this encounter (statuses as of 09/15/2022) [facility] of Past illness Narrative* Problem Noted Date Resolved Date Restless legs syndrome 08/21/2019 2 Essential hypertension, benign 12/22/2006 0 11/05/2007 documented as of this encounter (statuses as of 09/28/2022) [facility] of [facility] illness Narrative* Problem Noted Date Resolved Date Restless legs syndrome 08/21/2019 2 Essential hypertension, benign 12/22/2006 0 11/05/2007 documented as of this encounter (statuses as of 10/20/2022) [facility] of [facility] illness Narrative* Problem Noted Date Resolved Date Restless legs syndrome 08/21/2019 2 Essential hypertension, benign 12/22/2006 0 11/05/2007 documented as of this encounter (statuses as of 10/31/2022) [facility] of [facility] illness Narrative* Problem Noted Date Resolved Date Restless legs syndrome 08/21/2019 2 Essential hypertension, benign 12/22/2006 0 11/05/2007 documented as of this encounter (statuses as of 11/24/2022) [facility] of [facility] illness Narrative* Problem Noted Date Resolved Date Restless legs syndrome 08/21/2019 2 Essential hypertension, benign 12/22/2006 0 11/05/2007 documented as of this encounter (statuses as of 12/27/2022) [facility] of [facility] illness Narrative* Problem Noted Date Resolved Date Restless legs syndrome 08/21/2019 2 Essential hypertension, benign 12/22/2006 0 11/05/2007 documented as of this encounter (statuses as of 01/05/2023) [facility] of [facility] Narrative* Problem Noted Date Resolved Date Restless legs syndrome 08/21/2019 2 Calculus of gallbladder with out cholecystitis without obstruction 11/30/2017 02/14/2023 Gallbladder polyp 11/30/2017 02/14/2023 Overview: Patient declines follow up. Aware of risks of not diagnosing a gall bladder malignancy Essential hypertension, benign 12/22/2006 0 11/05/2007 documented as of this encounter (statuses as of 02/14/2023) [facility] of [facility] Narrative* Problem Noted Date Resolved Date Restless legs syndrome 08/21/2019 2 Calculus of gallbladder with out cholecystitis without obstruction 11/30/2017 02/14/2023 Gallbladder polyp 11/30/2017 02/14/2023 Overview: Patient declines follow up. Aware of risks of not diagnosing a gall bladder malignancy Essential hypertension, benign 12/22/2006 0 11/05/2007 documented as of this encounter (statuses as of 02/20/2023) [facility] of [facility] Narrative* Problem Noted Date Resolved Date Restless legs syndrome 08/21/2019 2 Calculus of gallbladder with out cholecystitis without obstruction 11/30/2017 02/14/2023 Gallbladder polyp 11/30/2017 02/14/2023 Overview: Patient declines follow up. Aware of risks of not diagnosing a gall bladder malignancy Essential hypertension, benign 12/22/2006 0 11/05/2007 documented as of this encounter (statuses as of 04/05/2023) [facility] of [facility] Narrative* Problem Noted Date Resolved Date Restless legs syndrome 08/21/2019 2 Calculus of gallbladder with out cholecystitis without obstruction 11/30/2017 02/14/2023 Gallbladder polyp 11/30/2017 02/14/2023 Overview: Patient declines follow up. Aware of risks of not diagnosing a gall bladder malignancy Essential hypertension, benign 12/22/2006 0 11/05/2007 documented as of this encounter (statuses as of 04/21/2023) [facility] of [facility] Narrative* Problem Noted Date Diagnosed Date Resolved Date Restless legs syndrome 08/21/201902/11 Calculus of gallbladder with out cholecystitis without obstruction 11/30/2017 02/14/2023 Gallbladder polyp 11/30/2017 02/14/2023 Overview: Patient declines follow up. Aware of risks of not diagnosing a gall bladder malignancy Essential hypertension, benign 12/22/2006 11/05/2007 documented as of this encounter (statuses as of 07/03/2023) [facility] of [facility] Narrative* Problem Noted Date Diagnosed Date Resolved Date Restless legs syndrome 08/21/201902/11 Calculus of gallbladder with out cholecystitis without obstruction 11/30/2017 02/14/2023 Gallbladder polyp 11/30/2017 02/14/2023 Overview: Patient declines follow up. Aware of risks of not diagnosing a gall bladder malignancy Essential hypertension, benign 12/22/2006 11/05/2007 documented as of this encounter (statuses as of 07/19/2023) [facility] Narrative* Problem Noted Date Diagnosed Date Resolved Date Restless legs syndrome 08/21/201902/11 Calculus of gallbladder with out cholecystitis without obstruction 11/30/2017 02/14/2023 Gallbladder polyp 11/30/2017 02/14/2023 Overview: Patient declines follow up. Aware of risks of not diagnosing a gall bladder malignancy Essential hypertension, benign 12/22/2006 11/05/2007 documented as of this encounter (statuses as of 09/14/2023) [facility] Narrative* Problem Noted Date Diagnosed Date Resolved Date Restless legs syndrome 08/21/201902/11 Calculus of gallbladder with out cholecystitis without obstruction 11/30/2017 02/14/2023 Gallbladder polyp 11/30/2017 02/14/2023 Overview: Patient declines follow up. Aware of risks of not diagnosing a gall bladder malignancy Essential hypertension, benign 12/22/2006 11/05/2007 documented as of this encounter (statuses as of 11/17/2023) [facility] Narrative* Problem Noted Date Diagnosed Date Resolved Date Restless legs syndrome 08/21/201902/11 Calculus of gallbladder with out cholecystitis without obstruction 11/30/2017 02/14/2023 Gallbladder polyp 11/30/2017 02/14/2023 Overview: Patient declines follow up. Aware of risks of not diagnosing a gall bladder malignancy Essential hypertension, benign 12/22/2006 11/05/2007 documented as of this encounter (statuses as of 11/21/2023) [facility] Narrative* Problem Noted Date Diagnosed Date Resolved Date Restless legs syndrome 08/21/201902/11 Calculus of gallbladder with out cholecystitis without obstruction 11/30/2017 02/14/2023 Gallbladder polyp 11/30/2017 02/14/2023 Overview: Patient declines follow up. Aware of risks of not diagnosing a gall bladder malignancy Essential hypertension, benign 12/22/2006 11/05/2007 documented as of this encounter (statuses as of 11/23/2023) [facility] Narrative* Problem Noted Date Diagnosed Date Resolved Date Restless legs syndrome 08/21/201902/11 Calculus of gallbladder with out cholecystitis without obstruction 11/30/2017 02/14/2023 Gallbladder polyp 11/30/2017 02/14/2023 Overview: Patient declines follow up. Aware of risks of not diagnosing a gall bladder malignancy Essential hypertension, benign 12/22/2006 11/05/2007 documented as of this encounter (statuses as of 12/05/2023) [facility] Narrative* Problem Noted Date Diagnosed Date Resolved Date Restless legs syndrome 08/21/201902/11 Calculus of gallbladder with out cholecystitis without obstruction 11/30/2017 02/14/2023 Gallbladder polyp 11/30/2017 02/14/2023 Overview: Patient declines follow up. Aware of risks of not diagnosing a gall bladder malignancy Essential hypertension, benign 12/22/2006 11/05/2007 documented as of this encounter (statuses as of 12/05/2023) [facility] Narrative* Problem Noted Date Diagnosed Date Resolved Date Restless legs syndrome 08/21/201902/11 Calculus of gallbladder with out cholecystitis without obstruction 11/30/2017 02/14/2023 Gallbladder polyp 11/30/2017 02/14/2023 Overview: Patient declines follow up. Aware of risks of not diagnosing a gall bladder malignancy Essential hypertension, benign 12/22/2006 11/05/2007 documented as of this encounter (statuses as of 12/08/2023) [facility] Narrative* Problem Noted Date Diagnosed Date Resolved Date Restless legs syndrome 08/21/201902/11 Calculus of gallbladder with out cholecystitis without obstruction 11/30/2017 02/14/2023 Gallbladder polyp 11/30/2017 02/14/2023 Overview: Patient declines follow up. Aware of risks of not diagnosing a gall bladder malignancy Essential hypertension, benign 12/22/2006 11/05/2007 documented as of this encounter (statuses as of 12/08/2023) [facility] Narrative* Problem Noted Date Diagnosed Date Resolved Date Restless legs syndrome 08/21/201902/11 Calculus of gallbladder with out cholecystitis without obstruction 11/30/2017 02/14/2023 Gallbladder polyp 11/30/2017 02/14/2023 Overview: Patient declines follow up. Aware of risks of not diagnosing a gall bladder malignancy Essential hypertension, benign 12/22/2006 11/05/2007 documented as of this encounter (statuses as of 12/20/2023) [facility] Narrative* Problem Noted Date Diagnosed Date Resolved Date Restless legs syndrome 08/21/201902/11 Calculus of gallbladder with out cholecystitis without obstruction 11/30/2017 02/14/2023 Gallbladder polyp 11/30/2017 02/14/2023 Overview: Patient declines follow up. Aware of risks of not diagnosing a gall bladder malignancy Essential hypertension, benign 12/22/2006 11/05/2007 documented as of this encounter (statuses as of 12/28/2023) [facility] Narrative* Problem Noted Date Diagnosed Date Resolved Date Restless legs syndrome 08/21/201902/11 Calculus of gallbladder with out cholecystitis without obstruction 11/30/2017 02/14/2023 Gallbladder polyp 11/30/2017 02/14/2023 Overview: Patient declines follow up. Aware of risks of not diagnosing a gall bladder malignancy Essential hypertension, benign 12/22/2006 11/05/2007 documented as of this encounter (statuses as of 01/03/2024) [facility] Narrative* Problem Noted Date Diagnosed Date Resolved Date Restless legs syndrome 08/21/201902/11 Calculus of gallbladder with out cholecystitis without obstruction 11/30/2017 02/14/2023 Gallbladder polyp 11/30/2017 02/14/2023 Overview: Patient declines follow up. Aware of risks of not diagnosing a gall bladder malignancy Essential hypertension, benign 12/22/2006 11/05/2007 documented as of this encounter (statuses as of 01/08/2024) [facility] Narrative* Problem Noted Date Diagnosed Date Resolved Date Restless legs syndrome 08/21/201902/11 Calculus of gallbladder with out cholecystitis without obstruction 11/30/2017 02/14/2023 Gallbladder polyp 11/30/2017 02/14/2023 Overview: Patient declines follow up. Aware of risks of not diagnosing a gall bladder malignancy Essential hypertension, benign 12/22/2006 11/05/2007 documented as of this encounter (statuses as of 01/25/2024) [facility] Narrative* Problem Noted Date Resolved Date Essential hypertension, benign 12/22/2006 0 11/05/2007 documented as of this encounter (statuses as of 01/06/2022) [facility] Narrative* Problem Noted Date Resolved Date Essential hypertension, benign 12/22/2006 0 11/05/2007 documented as of this encounter (statuses as of 02/03/2022) [facility] Narrative* Problem Noted Date Resolved Date Essential hypertension, benign 12/22/2006 0 11/05/2007 documented as of this encounter (statuses as of 02/09/2022) [facility] Narrative* Problem Noted Date Resolved Date Essential hypertension, benign 12/22/2006 0 11/05/2007 documented as of this encounter (statuses as of 02/10/2022) [facility] note* Diagnosis Acute gout of right ankle, unspecified cause [facility] Diagnosis Parkinson's disease (HCC)- Primary Paralysis [...] Anxiety state, unspecified [facility]* Diagnosis Parkinson's disease (HCC)- Primary Paralysis agitans REM sleep behavior disorder Sialorrhea Disturbance of salivary secretion [facility] noteNo assessment information availableWAultman [facility] Work Phone: Evaluation note* Diagnosis Acute gout of right ankle, unspecified cause [facility] this encounter [facility]* Diagnosis Acute gout of right foot, unspecified cause- Primary [facility]* Diagnosis Essential hypertension Unspecified essential hypertension TIA (transient ischemic attack) Unspecified transient cerebral ischemia Hypothyroidism, acquired Unspecified hypothyroidism [facility]* Diagnosis Essential hypertension- Primary Unspecified essential [...] malignant neoplasms, colon documented [facility] this encounter [facility] [facility]* Diagnosis Onset Date Resolution Status Abdominal pain acute Acute cholecystitis acute History of Parkinson's disease acute [facility] Work Phone: Evaluation note* Diagnosis Status post laparoscopic cholecystectomy- Primary Other postprocedural status [facility]* Diagnosis 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- Primary Calculus of gallbladder with other cholecystitis and obstruction [facility]* Diagnosis Acute idiopathic gout of multiple sites- Primary [facility]* Diagnosis Parkinson's disease (HCC)- Primary Paralysis agitans documented [facility] this encounter [facility] [facility]* Diagnosis Essential hypertension- Primary Unspecified essential [...] nonalcoholic liver disease documented [facility] this encounter [facility]* Diagnosis Acute pain of right shoulder- Primary [facility] [facility]* Diagnosis Hypothyroidism, acquired Unspecified hypothyroidism Essential hypertension Unspecified essential hypertension [facility] [facility]* Diagnosis Parkinson's disease without dyskinesia or fluctuating manifestations- Primary [facility]* Diagnosis Onset Date Resolution Status Atrial fibrillation acute Brain TIA acute Elevated serum creatinine ac [place] [facility] Work Phone: Evaluation note* Diagnosis Onset Date Resolution Status Acute CVA (cerebrovascular accident) acute Atrial fibrillation acute Brain TIA acute Elevated serum creatinine ac [place] History of Parkinson's disease acute HTN (hypertension) chronic [facility] Work Phone: Evaluation note* Diagnosis New onset atrial fibrillation (HCC) Atrial fibrillation RIND (reversible ischemic neurologic deficit) (HCC) Unspecified cerebral artery occlusion with cerebral infarction [facility]* Diagnosis 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 Unspecified cerebral artery occlusion with cerebral infarction Parkinson's disease with dyskinesia and fluctuating manifestations New onset atrial fibrillation (HCC) Atrial fibrillation Hypophosphataemia Right-sided cerebellar lacunar infarction (HCC) Unspecified cerebral artery occlusion with cerebral infarction calculus of kidney Calculus of kidney Bladder stones Other calculus in bladder Essential hypertension Unspecified essential hypertension Fatty liver Other chronic nonalcoholic liver disease Hyperlipidemia, unspecified hyperlipidemia type [facility] Diagnosis Atrial fibrillation, unspecified type (HCC)- Primary [facility] Diagnosis Chronic gout of multiple sites, unspecified cause- Primary [facility] Diagnosis Atrial fibrillation, unspecified type (HCC)- Primary [facility]* Diagnosis Essential hypertension Unspecified essential hypertension [facility]* Diagnosis Parkinson's disease without dyskinesia or fluctuating manifestations (HCC)- Primary Constipation, unspecified constipation type Sialorrhea Disturbance of salivary secretion [facility]* Diagnosis Parkinson's disease without dyskinesia or fluctuating manifestations (HCC)- Primary Screening for depression Essential hypertension Unspecified essential hypertension Paroxysmal atrial fibrillation (HCC) Atrial fibrillation Pure hypercholesterolemia Gastroesophageal reflux disease without esophagitis Esophageal reflux Malignant neoplasm of urinary bladder, unspecified site (HCC) Screening for prostate cancer Special screening for malignant neoplasm of prostate Screening for diabetes mellitus Screening for thyroid disorder [facility] Diagnosis Hypothyroidism, acquired Unspecified hypothyroidism [facility] Diagnosis Acute left ankle pain [facility] Diagnosis Atrial fibrillation, unspecified type (HCC)- Primary [facility]* Diagnosis Hypothyroidism, acquired Unspecified hypothyroidism documented [facility]* Diagnosis Hypothyroidism, acquired Unspecified hypothyroidism documented [facility] Diagnosis Acute idiopathic gout of multiple sites- Primary Essential hypertension Unspecified essential hypertension Hypothyroidism, acquired Unspecified hypothyroidism [facility]* Diagnosis Constipation, unspecified constipation type- Primary Parkinson's disease without dyskinesia or fluctuating manifestations (HCC) Sialorrhea Disturbance of salivary secretion Orthostatic hypotension documented in this encounter [facility] note* Diagnosis Parkinson's disease without dyskinesia or fluctuating manifestations (HCC)- Primary Hypothyroidism, acquired Unspecified hypothyroidism Pure hypercholesterolemia Essential hypertension Unspecified essential hypertension Paroxysmal atrial fibrillation (HCC) Atrial fibrillation Gout with manifestations Gout with other specified manifestations Chronic constipation Unspecified constipation documented in this encounter [facility] note* Diagnosis Acute idiopathic gout of right foot- Primary documented in this encounter [facility] note* Diagnosis Acute gout of right foot, unspecified cause- Primary [facility]* Diagnosis Paroxysmal A-fib (HCC)- Primary Atrial fibrillation [facility] Diagnosis Essential hypertension Unspecified essential hypertension Hyperlipemia Other and unspecified hyperlipidemia Medication management Encounter for long-term (current) use of other medications documented in this encounter [facility] note* Diagnosis Parkinson's disease without dyskinesia or fluctuating manifestations (HCC)- Primary Orthostatic hypotension Constipation, unspecified constipation type documented in this encounter [facility] note* Diagnosis Chronic constipation- Primary Unspecified constipation documented in this encounter [facility] note* Diagnosis Epistaxis- Primary documented in this encounter [facility] note* Diagnosis Bleeding from the nose- Primary Epistaxis documented in this encounter [facility] Discharge instructionsAdditional Instructions Follow-up with your primary care physician. Return back to the ED if symptoms change or worsen. [facility] plenty [facility] Work Phone: Hospital Discharge instructionsAdditional Instructions Return with increased bleeding from your nose, new or worsening symptomsWAultman [facility] Work Phone: Reason for referral (narrative)* Diagnostic Procedure Only (Routine) - Authorized Specialty Diagnoses / Procedures Referred By Contac t Referred To Contact US IMAGING Diagnoses Thyroid nodule Procedures US THYROID/PARATHYROID US SOFT TISSUE HEAD & NECK REAL TIME IMGE Mamadou Ruvalcaba PA-C [address] [place] [address] Us Imaging Referral ID Status Reason Start Date Expiration Date Visits Requested Visits Authorized [id number] Authorized Auto-Generat ed Referral 2 09/14/2023 1 1 [facility] for referral (narrative)* Diagnostic Procedure Only (Routine) - Authorized Specialty Diagnoses / Procedures Referred By Leslie t Referred To Contact US IMAGING Diagnoses Hypothyroidism, acquired Thyroid nodule Procedures US THYROID/PARATHYROID US SOFT TISSUE HEAD & NECK REAL TIME IMGE Mamadou Ruvalcaba PA-C [address] [place] [address] Us Imaging Referral ID Status Reason Start Date Expiration Date Visits Requested Visits Authorized [id number] Authorized Auto-Generat ed Referral 02/14/2023 03/15/2024 1 1 [facility] for referral (narrative)No reason for referral information availableWAultman [facility] Work Phone: Chief Complaint and Reason for Visit Chief Complaint EPIGASTRIC CHESTPAIN Chief Complaint ACUTE CHOLECYSTITIS Reason for Visit Abdominal pain Acute cholecystitis History of Parkinson's disease Chief Complaint TIA Reason for Visit Atrial fibrillation Brain TIA Elevated serum creatinine Chief Complaint TIA (cardiology) CVA TIA (cardiology) Cerebrovascular accident Cerebrovascular accident Reason for Visit Acute CVA (cerebrova scular accident) Atrial fibrillation Brain TIA Elevated serum creatinine History of Parkinson's disease HTN (hypertension) Chief Complaint HEMATURIA Chief Complaint Admit Date constipation February 19, 2025 3:23pm Chief Complaint Admit Date constipation February 19, 2025 3:23pm CONSTIPATION June 11, 2025 6: 30pm Chief Complaint Admit Date CONSTIPATION June 11, 2025 6: 30pm nosebleed July 15, 2025 12:40pm Advance Directives No Advanced Directives Records Found Advance Directive Response Recorded Date/ Time Living Will No April 19, 2022 1 1:49pm Power of [employer] No April 19, 2022 11:49pm Advance Directive Response Recorded Date/ Time Living Will No September 25 022 7:18am Power of [employer] No September 25, 2022 7:18am Advance Directive Response Recorded Date/ Time Living Will No September 25 2:51pm Power of [employer] No Nael 11th, 2022 2:51pm Advance Directive Response Recorded Date/ Time Living Will No October 19 8:05am Power of [employer] No October 19 024 8:05am Advance Directive Response Recorded Date/ Time Living Will No October 19 12:25pm Power of [employer] No October 19 024 12:25pm Advance Directive Response Recorded Date/ Time Living Will No February 25, 2024 2 :10pm Power of [employer] No February 25, 2024 2:10pm Advance Directive Response Recorded Date/ Time Do you have a Healthcare Power of [employer]? No February 19, 2025 3:37pm Advance Directive Response Recorded Date/ Time Do you have a Healthcare Power of [employer]? No June 11, 2025 7:35pm Do you have a Healthcare Power of [employer]? No February 19, 2025 3:37pm Advance Directive Response Recorded Date/ Time Do you have a Healthcare Power of [employer]? No June 11, 2025 7:35pm Do you have a Healthcare Power of [employer]? No July 15, 2025 1:29pm Reason for Referral Specialty Diagnoses / Procedures Referred By Leslie t Referred To Contact Diagnoses Parkinson's disease without dyskinesia or fluctuating manifestations (HCC) Procedures PROVIDER ORDERED FOLLOW UP OFFICE/OUTPATIENT [facility] 60 MINUTES Sade Shine APRN.MANAGER OF SECURITY [address] [address] Referral ID Status Reason Start Date Expiration Date Visits Requested Visits Authorized [id number] Authorized PCP Requested Referral 12/06/2024 06/05/2025 1 1 Summary Purpose Family History No Family History Records FoundNo Family History Records Found Additional Source Comments Source Comments (unrecognize d section and content) In the event this informatio n is protected by the Federal Confidentiality of Alcohol and Drug Abuse Patient Records regulations: The Federal rules restrict any use of the information to criminally investigate or prosecute any alcohol or drug abuse patient.[facility] the event this information is protected by the Federal Confidentiality of Alcohol and Drug Abuse Patient Records regulations: The Federal rules restrict any use of the information to criminally investigate or prosecute any alcohol or drug abuse patient.[facility] CenterIn the event this information is protected by the Federal Confidentiality of Alcohol and Drug Abuse Patient Records regulations: The Federal rules restrict any use of the information to criminally investigate or prosecute any alcohol or drug abuse patient.[facility] CenterIn the event this information is protected by the Federal Confidentiality of Alcohol and Drug Abuse Patient Records regulations: The Federal rules restrict any use of the information to criminally investigate or prosecute any alcohol or drug abuse patient.[facility] CenterIn the event this information is protected by the Federal Confidentiality of Alcohol and Drug Abuse Patient Records regulations: The Federal rules restrict any use of the information to criminally investigate or prosecute any alcohol or drug abuse patient.[facility] CenterIn the event this information is protected by the Federal Confidentiality of Alcohol and Drug Abuse Patient Records regulations: The Federal rules restrict any use of the information to criminally investigate or prosecute any alcohol or drug abuse patient.[facility] CenterIn the event this information is protected by the Federal Confidentiality of Alcohol and Drug Abuse Patient Records regulations: The Federal rules restrict any use of the information to criminally investigate or prosecute any alcohol or drug abuse patient.[facility] CenterIn the event this information is protected by the Federal Confidentiality of Alcohol and Drug Abuse Patient Records regulations: The Federal rules restrict any use of the information to criminally investigate or prosecute any alcohol or drug abuse patient.[facility] CenterIn the event this information is protected by the Federal Confidentiality of Alcohol and Drug Abuse Patient Records regulations: The Federal rules restrict any use of the information to criminally investigate or prosecute any alcohol or drug abuse patient.[facility] CenterIn the event this information is protected by the Federal Confidentiality of Alcohol and Drug Abuse Patient Records regulations: The Federal rules restrict any use of the information to criminally investigate or prosecute any alcohol or drug abuse patient.[facility] CenterIn the event this information is protected by the Federal Confidentiality of Alcohol and Drug Abuse Patient Records regulations: The Federal rules restrict any use of the information to criminally investigate or prosecute any alcohol or drug abuse patient.[facility] CenterIn the event this information is protected by the Federal Confidentiality of Alcohol and Drug Abuse Patient Records regulations: The Federal rules restrict any use of the information to criminally investigate or prosecute any alcohol or drug abuse patient.[facility] CenterIn the event this information is protected by the Federal Confidentiality of Alcohol and Drug Abuse Patient Records regulations: The Federal rules restrict any use of the information to criminally investigate or prosecute any alcohol or drug abuse patient.[facility] CenterIn the event this information is protected by the Federal Confidentiality of Alcohol and Drug Abuse Patient Records regulations: The Federal rules restrict any use of the information to criminally investigate or prosecute any alcohol or drug abuse patient.[facility] CenterIn the event this information is protected by the Federal Confidentiality of Alcohol and Drug Abuse Patient Records regulations: The Federal rules restrict any use of the information to criminally investigate or prosecute any alcohol or drug abuse patient.[facility] CenterIn the event this information is protected by the Federal Confidentiality of Alcohol and Drug Abuse Patient Records regulations: The Federal rules restrict any use of the information to criminally investigate or prosecute any alcohol or drug abuse patient.[facility] CenterIn the event this information is protected by the Federal Confidentiality of Alcohol and Drug Abuse Patient Records regulations: The Federal rules restrict any use of the information to criminally investigate or prosecute any alcohol or drug abuse patient.[facility] CenterIn the event this information is protected by the Federal Confidentiality of Alcohol and Drug Abuse Patient Records regulations: The Federal rules restrict any use of the information to criminally investigate or prosecute any alcohol or drug abuse patient.[facility] CenterIn the event this information is protected by the Federal Confidentiality of Alcohol and Drug Abuse Patient Records regulations: The Federal rules restrict any use of the information to criminally investigate or prosecute any alcohol or drug abuse patient.[facility] CenterIn the event this information is protected by the Federal Confidentiality of Alcohol and Drug Abuse Patient Records regulations: The Federal rules restrict any use of the information to criminally investigate or prosecute any alcohol or drug abuse patient.[facility] CenterIn the event this information is protected by the Federal Confidentiality of Alcohol and Drug Abuse Patient Records regulations: The Federal rules restrict any use of the information to criminally investigate or prosecute any alcohol or drug abuse patient.[facility] CenterIn the event this information is protected by the Federal Confidentiality of Alcohol and Drug Abuse Patient Records regulations: The Federal rules restrict any use of the information to criminally investigate or prosecute any alcohol or drug abuse patient.[facility] CenterIn the event this information is protected by the Federal Confidentiality of Alcohol and Drug Abuse Patient Records regulations: The Federal rules restrict any use of the information to criminally investigate or prosecute any alcohol or drug abuse patient.[facility] CenterIn the event this information is protected by the Federal Confidentiality of Alcohol and Drug Abuse Patient Records regulations: The Federal rules restrict any use of the information to criminally investigate or prosecute any alcohol or drug abuse patient.[facility] CenterIn the event this information is protected by the Federal Confidentiality of Alcohol and Drug Abuse Patient Records regulations: The Federal rules restrict any use of the information to criminally investigate or prosecute any alcohol or drug abuse patient.[facility] CenterIn the event this information is protected by the Federal Confidentiality of Alcohol and Drug Abuse Patient Records regulations: The Federal rules restrict any use of the information to criminally investigate or prosecute any alcohol or drug abuse patient.[facility] CenterIn the event this information is protected by the Federal Confidentiality of Alcohol and Drug Abuse Patient Records regulations: The Federal rules restrict any use of the information to criminally investigate or prosecute any alcohol or drug abuse patient.[facility] CenterIn the event this information is protected by the Federal Confidentiality of Alcohol and Drug Abuse Patient Records regulations: The Federal rules restrict any use of the information to criminally investigate or prosecute any alcohol or drug abuse patient.[facility] CenterIn the event this information is protected by the Federal Confidentiality of Alcohol and Drug Abuse Patient Records regulations: The Federal rules restrict any use of the information to criminally investigate or prosecute any alcohol or drug abuse patient.[facility] CenterIn the event this information is protected by the Federal Confidentiality of Alcohol and Drug Abuse Patient Records regulations: The Federal rules restrict any use of the information to criminally investigate or prosecute any alcohol or drug abuse patient.[facility] CenterIn the event this information is protected by the Federal Confidentiality of Alcohol and Drug Abuse Patient Records regulations: The Federal rules restrict any use of the information to criminally investigate or prosecute any alcohol or drug abuse patient.[facility] CenterIn the event this information is protected by the Federal Confidentiality of Alcohol and Drug Abuse Patient Records regulations: The Federal rules restrict any use of the information to criminally investigate or prosecute any alcohol or drug abuse patient.[facility] CenterIn the event this information is protected by the Federal Confidentiality of Alcohol and Drug Abuse Patient Records regulations: The Federal rules restrict any use of the information to criminally investigate or prosecute any alcohol or drug abuse patient.[facility] CenterIn the event this information is protected by the Federal Confidentiality of Alcohol and Drug Abuse Patient Records regulations: The Federal rules restrict any use of the information to criminally investigate or prosecute any alcohol or drug abuse patient.[facility] CenterIn the event this information is protected by the Federal Confidentiality of Alcohol and Drug Abuse Patient Records regulations: The Federal rules restrict any use of the information to criminally investigate or prosecute any alcohol or drug abuse patient.[facility] CenterIn the event this information is protected by the Federal Confidentiality of Alcohol and Drug Abuse Patient Records regulations: The Federal rules restrict any use of the information to criminally investigate or prosecute any alcohol or drug abuse patient.[facility] CenterIn the event this information is protected by the Federal Confidentiality of Alcohol and Drug Abuse Patient Records regulations: The Federal rules restrict any use of the information to criminally investigate or prosecute any alcohol or drug abuse patient.[facility] CenterIn the event this information is protected by the Federal Confidentiality of Alcohol and Drug Abuse Patient Records regulations: The Federal rules restrict any use of the information to criminally investigate or prosecute any alcohol or drug abuse patient.[facility] CenterIn the event this information is protected by the Federal Confidentiality of Alcohol and Drug Abuse Patient Records regulations: The Federal rules restrict any use of the information to criminally investigate or prosecute any alcohol or drug abuse patient.[facility] CenterIn the event this information is protected by the Federal Confidentiality of Alcohol and Drug Abuse Patient Records regulations: The Federal rules restrict any use of the information to criminally investigate or prosecute any alcohol or drug abuse patient.[facility] CenterIn the event this information is protected by the Federal Confidentiality of Alcohol and Drug Abuse Patient Records regulations: The Federal rules restrict any use of the information to criminally investigate or prosecute any alcohol or drug abuse patient.[facility] CenterIn the event this information is protected by the Federal Confidentiality of Alcohol and Drug Abuse Patient Records regulations: The Federal rules restrict any use of the information to criminally investigate or prosecute any alcohol or drug abuse patient.[facility] CenterIn the event this information is protected by the Federal Confidentiality of Alcohol and Drug Abuse Patient Records regulations: The Federal rules restrict any use of the information to criminally investigate or prosecute any alcohol or drug abuse patient.[facility] CenterIn the event this information is protected by the Federal Confidentiality of Alcohol and Drug Abuse Patient Records regulations: The Federal rules restrict any use of the information to criminally investigate or prosecute any alcohol or drug abuse patient.[facility] CenterIn the event this information is protected by the Federal Confidentiality of Alcohol and Drug Abuse Patient Records regulations: The Federal rules restrict any use of the information to criminally investigate or prosecute any alcohol or drug abuse patient.[facility] CenterIn the event this information is protected by the Federal Confidentiality of Alcohol and Drug Abuse Patient Records regulations: The Federal rules restrict any use of the information to criminally investigate or prosecute any alcohol or drug abuse patient.[facility] CenterIn the event this information is protected by the Federal Confidentiality of Alcohol and Drug Abuse Patient Records regulations: The Federal rules restrict any use of the information to criminally investigate or prosecute any alcohol or drug abuse patient.[facility] CenterIn the event this information is protected by the Federal Confidentiality of Alcohol and Drug Abuse Patient Records regulations: The Federal rules restrict any use of the information to criminally investigate or prosecute any alcohol or drug abuse patient.[facility] CenterIn the event this information is protected by the Federal Confidentiality of Alcohol and Drug Abuse Patient Records regulations: The Federal rules restrict any use of the information to criminally investigate or prosecute any alcohol or drug abuse patient.[facility] CenterIn the event this information is protected by the Federal Confidentiality of Alcohol and Drug Abuse Patient Records regulations: The Federal rules restrict any use of the information to criminally investigate or prosecute any alcohol or drug abuse patient.[facility] CenterIn the event this information is protected by the Federal Confidentiality of Alcohol and Drug Abuse Patient Records regulations: The Federal rules restrict any use of the information to criminally investigate or prosecute any alcohol or drug abuse patient.[facility] CenterIn the event this information is protected by the Federal Confidentiality of Alcohol and Drug Abuse Patient Records regulations: The Federal rules restrict any use of the information to criminally investigate or prosecute any alcohol or drug abuse patient.[facility] CenterIn the event this information is protected by the Federal Confidentiality of Alcohol and Drug Abuse Patient Records regulations: The Federal rules restrict any use of the information to criminally investigate or prosecute any alcohol or drug abuse patient.[facility] CenterIn the event this information is protected by the Federal Confidentiality of Alcohol and Drug Abuse Patient Records regulations: The Federal rules restrict any use of the information to criminally investigate or prosecute any alcohol or drug abuse patient.[facility] CenterIn the event this information is protected by the Federal Confidentiality of Alcohol and Drug Abuse Patient Records regulations: The Federal rules restrict any use of the information to criminally investigate or prosecute any alcohol or drug abuse patient.[facility] CenterIn the event this information is protected by the Federal Confidentiality of Alcohol and Drug Abuse Patient Records regulations: The Federal rules restrict any use of the information to criminally investigate or prosecute any alcohol or drug abuse patient.[facility] CenterIn the event this information is protected by the Federal Confidentiality of Alcohol and Drug Abuse Patient Records regulations: The Federal rules restrict any use of the information to criminally investigate or prosecute any alcohol or drug abuse patient.[facility] CenterIn the event this information is protected by the Federal Confidentiality of Alcohol and Drug Abuse Patient Records regulations: The Federal rules restrict any use of the information to criminally investigate or prosecute any alcohol or drug abuse patient.[facility] CenterIn the event this information is protected by the Federal Confidentiality of Alcohol and Drug Abuse Patient Records regulations: The Federal rules restrict any use of the information to criminally investigate or prosecute any alcohol or drug abuse patient.[facility] CenterIn the event this information is protected by the Federal Confidentiality of Alcohol and Drug Abuse Patient Records regulations: The Federal rules restrict any use of the information to criminally investigate or prosecute any alcohol or drug abuse patient.[facility] CenterIn the event this information is protected by the Federal Confidentiality of Alcohol and Drug Abuse Patient Records regulations: The Federal rules restrict any use of the information to criminally investigate or prosecute any alcohol or drug abuse patient.[facility] Reason for Visit (unrecogniz ed section and content) Reason Onset Date Comments [facility] Navigation Outreach 01/06/2022 ACO RUBY PCSA Reason Comments requesting prescription gout Reason Comments Medicare Wellness Exam Reason Comments Results Reason Comments Follow Up Reason Comments Patient Update Medication Request Reason Comments Pain (foot) right x last night Reason Onset Date Comments Refill Request 05/09/2022 Reason Comments 6 Month Exam Reason Comments lab results Reason Onset Date Comments [facility] Navigation Outreach 09/15/2022 ACO RUBY PCSA Reason Comments Follow Up Laparoscopy cholecys tectomy Reason Comments Follow Up Gallbladder surgery Reason Onset Date Comments [facility] Outreach 10/31/2022 ACO RUBY PCSA Reason Comments Gout Left foot, left knee , 3 days Reason Comments Parkinson's Disease Reason Onset Date Comments [facility] Outreach 01/05/2023 ACO Care Gaps Reason Comments ER F/U [facility] ER 03/29 dx:fall, R arm pain Specialty Diagnoses / Procedures Referred By Contac t Referred To Contact Family Medicine / FAMILY MEDICINE Diagnoses ER follow up right arm injury WC Procedures 4C EST HOSP/ER Rigoberto Mott MD [address] [address] [place] [address] Manuela Pham APRN.MANAGER OF SECURITY [address] [place] [address] Referral ID Status Reason Start Date Expiration Date Visits Requested Visits Authorized [id number] Pending Review Clearance Not Met -Financial Clearance Bypassed 04/04/2023 04/04/2024 1 1 Reason Comments Workers Comp questions Reason Onset Date Comments Refill Request 07/03/2023 Reason Comments Forms Reason Comments CARD New Patient Consult Consult to [facility] - LIONEL Trevizo - 10/24/23New onset a-fib, reversible ischemic neurologic deficitSee 10/24/2023 OV notes w/ [facility] 10/19-10/21/23 - Acute CVA, new a-fib, Parkinson's disease, HTN Specialty Diagnoses / Procedures Referred By Contac t Referred To Contact Cardiology Diagnoses New onset atrial fibrillation (HCC) RIND (reversible ischemic neurologic deficit) (HCC) Procedures CONSULT TO CARDIOLOGY OFFICE/OUTPATIENT NEW HIGH MDM 60 MINUTES Mamadou Wu PA-C [address] [place] [address] Referral ID Status Reason Start Date Expiration Date V isits Requested Visits Authorized [id number] Closed PCP Requested Referral 10/24/2023 10/23/2024 1 1 Reason Comments Follow Up 6 week Reason Comments Forms Wrist splints Reason Comments Pain (foot) Right ankle and foot . Left knee x3 days Reason Comments Cardiology Follow Up No new cardiac conc erns today Reason Comments Out of Medication Medication Request Reason Comments Forms [facility] [place] Reason Comments Parkinson's Disease Follow Up Reason Comments 6 month f/up Reason Comments Patient Assistance Reason Comments Follow Up Follow upHx of TIA, HLD, HTN, PAF, Bilateral carotid artery stenosisECG 11/21/2023ZIO 11/15/2023ECHO 1/4/2024No current cardiac concerns Reason Onset Date Comments Refill Request 09/17/2024 Reason Onset Date Comments Refill Request 09/17/2024 Need for labwork 09/17/2024 Reason Comments Parkinson's Disease Specialty Diagnoses / Procedures Referred By Contac t Referred To Contact Diagnoses Parkinson's disease without dyskinesia or fluctuating manifestations (HCC) Procedures PROVIDER ORDERED FOLLOW UP OFFICE/OUTPATIENT NEW HIGH MDM 60 MINUTES Sade Shine, SHOP SERVICE TECHNICIAN.MANAGER OF SECURITY [address] [place] [address] Phone: tel: fax: Referral ID Status Reason Start Date Expiration Date V isits Requested Visits Authorized [id number] Closed PCP Requested Referral 12/06/2024 06/05/2025 1 1 Reason Comments 6 Month Exam Reason Onset Date Comments Results 12/12/2024 Reason Comments Pain (foot) right, ? gout x 4 da ys Reason Comments Pain (foot) right x 1 day Reason Comments Follow Up No current cardiac c oncerns Specialty Diagnoses / Procedures Referred By Contac t Referred To Contact Diagnoses Parkinson's disease without dyskinesia or fluctuating manifestations (HCC) Procedures OFFICE/OUTPATIENT NEW HIGH MDM 60 MINUTES Sade Shine, SHOP SERVICE TECHNICIAN.MANAGER OF SECURITY [address] [place] [address] Phone: tel: fax: Referral ID Status Reason Start Date Expiration Date V isits Requested Visits Authorized [id number] Closed PCP Requested Referral 06/08/2025 12/09/2025 1 1 Reason Comments ER F/U Constipation. Still has maybe only had one small BM since been there. Denies abd pain. Taking the miralax and senna given in ER. Reason Comments Nose Bleed x 2 days Care Teams (unrecognized sec tion and content) Cardiac Sonographer Relationship Specialty Start Date End Date Celso Hunt MD [address] [place] [address] PCP - General Family Practice 11/05/12 Cardiac Sonographer Relationship Specialty Start Date End Date Celso Hunt MD [address] [place] [address] PCP - General Family Practice 11/05/12 Cardiac Sonographer Relationship Specialty Start Date End Date Celso Hunt MD [address] [facility] [address] PCP - General Family Practice 11/05/12 Cardiac Sonographer Relationship Specialty Start Date End Date Ceslo Hunt MD [address] [facility] [address] PCP - General Family Practice 11/05/12 Cardiac Sonographer Relationship Specialty Start Date End Date Celso Hunt MD [address] [facility] [address] PCP - General Family Practice 11/05/12 Cardiac Sonographer Relationship Specialty Start Date End Date Celso Hunt MD [address] [facility] [address] PCP - General Family Practice 11/05/12 Cardiac Sonographer Relationship Specialty Start Date End Date Celso Hunt MD [address] [facility] [place] [address] PCP - General Family Practice 11/05/12 Cardiac Sonographer Relationship Specialty Start Date End Date Celso Hunt MD [address] [facility] [place] [address] PCP - General Family Medicine 11/05/12 Cardiac Sonographer Relationship Specialty Start Date End Date Celso uHnt MD [address] [facility] [place] [address] PCP - General Family Medicine 11/05/12 Cardiac Sonographer Relationship Specialty Start Date End Date Celso Hunt MD [address] [facility] [place] [address] PCP - General Family Medicine 11/05/12 Cardiac Sonographer Relationship Specialty Start Date End Date Celso Hunt MD [address] [facility] [address] PCP - General Family Medicine 11/05/12 Cardiac Sonographer Relationship Specialty Start Date End Date Celso Hunt MD [address] [facility] [address] PCP - General Family Medicine 11/05/12 Cardiac Sonographer Relationship Specialty Start Date End Date Celso Hunt MD [address] [facility] [address] PCP - General Family Medicine 11/05/12 Cardiac Sonographer Relationship Specialty Start Date End Date Celso Hunt MD [address] [facility] [place] [address] PCP - General Family Medicine 11/05/12 Cardiac Sonographer Relationship Specialty Start Date End Date Celso Hunt MD [address] [facility] [place] [address] PCP - General Family Medicine 11/05/12 Cardiac Sonographer Relationship Specialty Start Date End Date Celso Hunt MD [address] [facility] [place] [address] PCP - General Family Medicine 11/05/12 Cardiac Sonographer Relationship Specialty Start Date End Date Celso Hunt MD [address] [facility] [place] [address] PCP - General Family Medicine 11/05/12 Cardiac Sonographer Relationship Specialty Start Date End Date Celso Hunt MD [address] [facility] [place] [address] PCP - General Family Medicine 11/05/12 Cardiac Sonographer Relationship Specialty Start Date End Date Celso Hunt MD [address] [facility] [place] [address] PCP - General Family Medicine 11/05/12 Team Status: Active Member Role Status Dates Dr. Reynaldo Melvin MD Family Provider Active Dr. Celso Hunt MD Primary Care Provider Active Team Status: Active Member Role Status Dates Dr. Celso Hunt MD Primary Care Provider Active Dr. Tala Parker DO Emergency Provider Active Dr. Jonah Calix MD Admit Provider, Attending Provid er Active Team Status: Active Member Role Status Dates Dr. Celso Hunt MD Primary Care Provider Active Dr. Tala Parker DO Emergency Provider Active Dr. Jonah Calix MD Admit Provider, At tending Provider, Other Provider Active Dr. Bryant Loredo MD Other Provider Active Gurjit Jefferson MD Other Provider Active Dr. Nakul Hopper MD Other Provider Active Kateryna Jordan MD Other Provider Active Dr. Enedina Armenta DO Other Provider Active Dr. Gissel Hoyos MD Other Provider Active Dr. Paul Clark MD Other Provider Active Dr. Camilla Tejada MD Other Provider Active Dr. Augusto Truong MD Other Provider Active Dr. Traci Freeman MD Other Provider Active Catie Geronimo MD Other Provider Active Dr. Andrew Patton MD Other Provider Active Dr. Niharika Freed MD Other Provider Active Dr. Ines Buckley MD Other Provider Active Dr. Trang De Jesus MD Other Provider Active Dr. Trenton Garces MD Other Provider Active Dr. Yolie Robins MD Other Provider Active Dr. Mauricio Tyson MD Other Provider Active Dr. Lila Melchor MD Other Provider Active Navi Flores MD Other Provider Active Team Status: Active Member Role Status Dates Dr. Celso Hunt MD Primary Care Provider Active Dr. Yanick Galarza MD Attending Provider Active Team Status: Active Member Role Status Dates Dr. Celso Hunt MD Primary Care Provider Active Dr. Tala Parker DO Emergency Provider Active Dr. Jonah Calix MD Admit Provider, Other Provider A ctive Dr. Bryant Loredo MD Attending Provider, Other Provid er Active Gurjit Jefferson MD Other Provider Active Dr. Nakul Hopper MD Other Provider Active Kateryna Jordan MD Other Provider Active Dr. Enedina Armenta DO Other Provider Active Dr. Gissel Hoyos MD Other Provider Active Dr. Paul Clark MD Other Provider Active Dr. Camilla Tejada MD Other Provider Active Dr. Augusto Truong MD Other Provider Active Dr. Traci Freeman MD Other Provider Active Catie Geronimo MD Other Provider Active Dr. Andrew Patton MD Other Provider Active Dr. Niharika Freed MD Other Provider Active Dr. Ines Buckley MD Other Provider Active Dr. Trang De Jesus MD Other Provider Active Dr. Trenton Garces MD Other Provider Active Dr. Yolie Robins MD Other Provider Active Dr. Mauricio Tyson MD Other Provider Active Dr. Lila Melchor MD Other Provider Active Navi Flores MD Other Provider Active Team Status: Inactive Member Role Status Dates Dr. Celso Hunt MD Primary Care Provider Active Dr. Tala Parker , Emergency Provider Active Dr. Jonah Calix MD Admit Provider, Attending Provid er Active Dr. Bryant Loredo MD Other Provider Active Gurjit Jefferson MD Other Provider Active Dr. Nakul Hopper MD Other Provider Active Kateryna Jordan MD Other Provider Active Dr. Enedina Armenta DO Other Provider Active Dr. Gissel Hoyos MD Other Provider Active Dr. Paul Clark MD Other Provider Active Dr. Camilla Tejada MD Other Provider Active Dr. Augusto Truong MD Other Provider Active Dr. Traci Freeman MD Other Provider Active Catie Geronimo MD Other Provider Active Dr. Andrew Patton MD Other Provider Active Dr. Niharika Freed MD Other Provider Active Dr. Ines Buckley MD Other Provider Active Dr. Trang De Jesus MD Other Provider Active Dr. Trenton Garces MD Other Provider Active Dr. Yolie Robins MD Other Provider Active Dr. Mauricio Tyson MD Other Provider Active Dr. Lila Melchor MD Other Provider Active Navi Flroes MD Other Provider Active Cardiac Sonographer Relationship Specialty Start Date End Date Celso Hunt MD [address] [facility] [place] [address] PCP - General Family Medicine 11/05/12 Cardiac Sonographer Relationship Specialty Start Date End Date Celso Hunt MD [address] [place] [address] PCP - General Family Medicine 11/05/12 Yanira Redd MD [address] [place] [address] Cardiology 11/21/23 Cardiac Sonographer Relationship Specialty Start Date End Date Celso Hunt MD [address] [place] [address] PCP - General Family Medicine 11/05/12 Ynaira Redd MD [address] [place] [address] Cardiology 11/21/23 Cardiac Sonographer Relationship Specialty Start Date End Date Celso Hunt MD [address] [place] [address] PCP - General Family Medicine 11/05/12 Yanira Redd MD [address] [place] [address] Cardiology 11/21/23 Cardiac Sonographer Relationship Specialty Start Date End Date Celso Hunt MD [address] [place] [address] PCP - General Family Medicine 11/05/12 Yanira Redd MD [address] [place] [address] Cardiology 11/21/23 Cardiac Sonographer Relationship Specialty Start Date End Date Celso Hunt MD [address] [place] [address] PCP - General Family Medicine 11/05/12 Yanira Redd MD [address] [place] [address] Cardiology 11/21/23 Cardiac Sonographer Relationship Specialty Start Date End Date Celso Hunt MD [address] [place] [address] PCP - General Family Medicine 11/05/12 Yanira Redd MD [address] [place] [address] Cardiology 11/21/23 Cardiac Sonographer Relationship Specialty Start Date End Date Celso Hunt MD [facility] [place] [address] PCP - General Family Medicine 11/05/12 Yanira Redd MD [address] [place] [address] Cardiology 11/21/23 Cardiac Sonographer Relationship Specialty Start Date End Date Celso Hunt MD [address] [place] [address] PCP - General Family Medicine 11/05/12 Yanira Redd MD [address] [place] [address] Cardiology 11/21/23 Cardiac Sonographer Relationship Specialty Start Date End Date Celso Hunt MD [address] [place] [address] PCP - General Family Medicine 11/05/12 Yanira Redd MD [address] [place] [address] Cardiology 11/21/23 Team Status: Inactive Member Role Status Dates Dr. Celso Hunt MD Primary Care Provider Active Dr. Annia Camara DO Emergency Provider Active Cardiac Sonographer Relationship Specialty Start Date End Date Celso Hunt MD [address] [place] [address] PCP - General Family Medicine 11/05/12 Yanira Redd MD [address] [place] [address] Cardiology 11/21/23 Cardiac Sonographer Relationship Specialty Start Date End Date Celso Hunt MD [address] [place] [address] PCP - General Family Medicine 11/05/12 04/10/24 Mamadou Wu PA-C [address] [place] [address] PCP - General Family Medicine 04/11/24 Yanira Redd MD [address] [place] [address] Cardiology 11/21/23 Cardiac Sonographer Relationship Specialty Start Date End Date Mamadou Wu PA-C [address] [place] [address] PCP - General Family Medicine 04/11/24 Yanira Redd MD [address] [place] [address] Cardiology 11/21/23 Cardiac Sonographer Relationship Specialty Start Date End Date Mamadou Wu PA-C [facility] [place] [address] PCP - General Family Medicine 04/11/24 Yanira Redd MD [address] [place] [address] Cardiology 11/21/23 Cardiac Sonographer Relationship Specialty Start Date End Date Mamadou Wu PA-C [facility] [place] [address] PCP - General Family Medicine 04/11/24 Yanira Redd MD [address] [place] [address] Cardiology 11/21/23 Cardiac Sonographer Relationship Specialty Start Date End Date Celso Hunt MD [facility] [place] [address] PCP - General Family Medicine 11/05/12 04/10/24 Cardiac Sonographer Relationship Specialty Start Date End Date Mamadou Wu PA-C [facility] [place] [address] PCP - General Family Medicine 04/11/24 Yanira Redd MD [address] [place] [address] Cardiology 11/21/23 Cardiac Sonographer Relationship Specialty Start Date End Date Angelica Wu PA-C [address] [place] [address] PCP - General Family Medicine 04/11/24 Yanira Redd MD [address] [place] [address] Cardiology 11/21/23 Cardiac Sonographer Relationship Specialty Start Date End Date Angelica Wu PA-C [address] [place] [address] PCP - General Family Medicine 04/11/24 Yanira Redd MD [address] [place] [address] Cardiology 11/21/23 Cardiac Sonographer Relationship Specialty Start Date End Date Angelica Wu PA-C [address] [place] [address] PCP - General Family Medicine 04/11/24 Yanira Redd MD [address] [place] [address] Cardiology 11/21/23 Manuela Pham, MELLISA.MANAGER OF SECURITY [address] [place] [address] [employer] Family Medicine 09/20/24 Daniella Samuels SHOP SERVICE TECHNICIAN.MANAGER OF SECURITY [address] [place] [address] [employer] Family Medicine 09/20/24 Cardiac Sonographer Relationship Specialty Start Date End Date Daniella Samuels SHOP SERVICE TECHNICIAN.MANAGER OF SECURITY [address] [place] [address] PCP - General Family Medicine 09/30/24 Yanira Redd MD [address] [place] [address] Cardiology 11/21/23 Manuela Pham SHOP SERVICE TECHNICIAN.MANAGER OF SECURITY [address] [place] [address] [employer]der Family Medicine 09/20/24 Daniella Samuels SHOP SERVICE TECHNICIAN.MANAGER OF SECURITY [address] [place] [address] [employer] Family Medicine 09/20/24 Cardiac Sonographer Relationship Specialty Start Date End Date Daniella Samuels SHOP SERVICE TECHNICIAN.MANAGER OF SECURITY [address] [place] [address] PCP - General Family Medicine 09/30/24 Yanira Redd MD [address] [place] [address] Cardiology 11/21/23 Manuela Pham, SHOP SERVICE TECHNICIAN.MANAGER OF SECURITY [address] [place] [address] Metal [employer]der Family Medicine 09/20/24 Daniella Samuels SHOP SERVICE TECHNICIAN.MANAGER OF SECURITY [address] [place] [address] [facility] 09/[facility]/24 Cardiac Sonographer Relationship Specialty Start Date End Date Daniella Samuels SHOP SERVICE TECHNICIAN.MANAGER OF SECURITY [address] [place] [address] PCP - General Family Medicine 09/30/24 Yanira Redd MD [address] [place] [address] Cardiology 11/21/23 Manuela Pham, SHOP SERVICE TECHNICIAN.MANAGER OF SECURITY [address] [place] [address] [employer] Family Medicine 09/20/24 Daniella Samuels SHOP SERVICE TECHNICIAN.MANAGER OF SECURITY [address] [place] [address] [employer] Family Medicine 09/20/24 Cardiac Sonographer Relationship Specialty Start Date End Date Daniella Samuels, SHOP SERVICE TECHNICIAN.MANAGER OF SECURITY [address] [place] [address] PCP - General Family Medicine 09/30/24 Yanira Redd MD [address] [place] [address] [phone] Cardiology 11/21/23 Manuela Pham, SHOP SERVICE TECHNICIAN.MANAGER OF SECURITY [address] [place] [address] Metal [employer]der Family Medicine 09/20/24 Daniella Samuels, SHOP SERVICE TECHNICIAN.MANAGER OF SECURITY [address] [place] [address] [facility] 09/20/24 Cardiac Sonographer Relationship Specialty Start Date End Date Daniella Samuels, SHOP SERVICE TECHNICIAN.MANAGER OF SECURITY [address] [place] [address] PCP - General Family Medicine 09/30/24 Yanira Redd MD [address] [place] [address] [phone] Cardiology 11/21/23 Cardiac Sonographer Relationship Specialty Start Date End Date Daniella Samuels, SHOP SERVICE TECHNICIAN.MANAGER OF SECURITY [address] [place] [address] PCP - General Family Medicine 09/30/24 Yanira Redd MD [address] [place] [address] [phone] Cardiology 11/21/23 Team Status: Active Member Role Status Dates Dr. Celso Hunt MD Primary Care Provider Active Team Status: Inactive Member Role Status Dates Dr. Celso Hunt MD Primary Care Provider Active Start: February 19, 2025 End: February 19, 2025 Dr. Annia Camara DO Emergency Provider Active S tart: February 19, 2025 End: February 19, 2025 Cardiac Sonographer Relationship Specialty Start Date End Date Daniella Samuels APRN.MANAGER OF SECURITY [address] [place], [place] [address] PCP - General Family Medicine 09/30/24 Yanira Redd MD [address] [place], [place] [phone] Cardiology 11/21/23 Cardiac Sonographer Relationship Specialty Start Date End Date Daniella Samuels APRN.MANAGER OF SECURITY [address] [place], [place] [address]211 PCP - General Family Medicine 09/30/24 Yanira Redd MD [address] [place], [place] [phone] Cardiology 11/21/23 Team Status: Active Member Role/Relationship Status Dates Dr. Celso Hunt MD Primary Care Provider Active Team Status: Inactive Member Role/Relationship Status Dates Dr. Celso Hunt MD Primary Care Provider Active Start: February 19, 2025 End: February 19, 2025 Dr. Annia Camara DO Attending Provider Active S tart: February 19, 2025 End: February 19, 2025 Dr. Annia Camara DO Emergency Provider Active S tart: February 19, 2025 End: February 19, 2025 Team Status: Inactive Member Role/Relationship Status Dates Dr. Celso Hunt MD Primary Care Provider Active Start: June 11, 2025 End: June 11, 2025 Dr. Ruiz Swann DO Emergency Provider Activ e Start: June 11, 2025 End: June 11, 2025 Cardiac Sonographer Relationship Specialty Start Date End Date Daniella Samuels APRN.MANAGER OF SECURITY [address] [place] [address] PCP - General Family Medicine 09/30/24 Yanira Redd MD [address] [place] [address] Cardiology 11/21/23 Team Status: Active Member Role/Relationship Status Dates Dr. Celso Hunt MD Primary care physician Active Team Status: Inactive Member Role/Relationship Status Dates Dr. Celso Hunt MD Primary care physician Active Start: June 11, 2025 End: June 11, 2025 Dr. Ruiz Swann DO Attending physician Active Start: June 11, 2025 End: June 11, 2025 Dr. Ruiz Swann DO Emergency Department Physician Active Start: June 11, 2025 End: June 11, 2025 Team Status: Inactive Member Role/Relationship Status Dates Dr. Celso Hunt MD Primary care physician Active Start: July 15, 2025 End: July 15, 2025 Murray Garces MD Emergency Department Physician Active Start: July 15, 2025 End: July 15, 2025 Goals (unrecognized section and content) Goals may be documented in a n alternate sectionGoals may be documented in an alternate sectionGoals may be documented in an alternate sectionGoals may be documented in an alternate sectionGoals may be documented in an alternate sectionGoals may be documented in an alternate sectionGoals may be documented in an alternate section (unrecognized sect ion and content) No Status Records FoundNo Status Records Found INFORMATION SOURCE (unrecogn ized section and content) DATE CREATED AUTHOR 08/26/2025 [facility] DATE CREATED AUTHOR AUTHOR'S ORGANIZ ATION 08/28/2025 [facility] FOR RECORDS PERTAINING TO PATIENTS WHO ARE [...] BE BASED ON THE PRIMARY CLINICAL RECORDS. [facility] [employer] [facility]. provides no warranty or guarantee of the accuracy or completeness of information in this document.
[2025-09-16 07:58] LABS: Hematocrit 38.3 % (40-54); Hemoglobin 12.7 g/dL (13.0-16.5); Mean Corp Hgb Conc 33.2 g/dL (32-36); Mean Corpuscular Volume 84.7 fL (80-94); Mean Platelet Vol. 11.2 fl (6.2-12.0); Platelet Count 193 K/mm3 (150-450); RBC Distribution Width CV 14.7 % (11.6-14.6); RBC Distribution Width SD 45.7 fl (35.1-43.9); Red Blood Count 4.52 M/mm3 (4.6-6.2); White Blood Count 6.9 K/mm3 (4.4-11.0)
[2025-09-16 08:26] LABS: Anion Gap 10 (5-15); BUN 21 mg/dL (4-19); BUN/Creat Ratio 20.9 RATIO (10-20); Calcium,Total 9.1 mg/dL (7.6-11.0); Carbon Dioxide 28.6 mmol/L (21.0-32.0); Chloride 102 mmol/L (98-108); Glucose 86 mg/dL (70-99); Potassium 3.6 mmol/L (3.3-5.1)
== END ==
LOC: OLS.SW 05:00
PROVIDERS: PCP Family Medicine; Visit Provider Family Medicine
DX: G20.A1 Parkinson's disease without dyskinesia, without mention of fluctuations (principal); Z86.73 Personal history of transient ischemic attack (TIA), and cerebral infarction without residual deficits; I10 Essential (primary) hypertension
CPT/HCPCS: 36415; 80048; 85027